=== PATIENT | female | born 1950 | race Caucasian/White ===

== ENCOUNTER 2020-02-29 14:25 | Emergency (ER) | payer MEDICARE, MEDICAID, SELFPAY ==
[2020-02-29 14:34] VITALS: BP 186/83; PULSE 78; RESP 14; TEMP 36.8; O2SAT 100; BMI 36.6
--- NOTE | 2020-02-29 14:48 | PC.NURSE ---
PER EMS - G-TUBE FELL OUT X 1 HR AGO. G-TUBE IS WITH THE PATIENT, AREA IS SLIGHTLY JORGE A. G-TUBE IS WITH PT.
[2020-02-29 15:22] VITALS: BP 187/81; PULSE 71; RESP 17; TEMP 37.2; O2SAT 99
--- NOTE | 2020-02-29 15:58 | PC.NURSE ---
RECIEVED FEMALE PATIENT. ALERT AND ORIENTED TIMES FOUR PRESENTLY. NO NOTED DISTRESS. SKIN PWD, O2 VIA N/C AT 2L PATIENT IS O2 DEPENDENT.NO NOTED RESPIRATORY DISTRESS. PATIENT NOTED GT DISLODGED. STATES BURNING SENSATION. NO NOTED S/S OF INFECTION TO SITE. UNDER EVALUATION. GT AREA CLEANSED AND MAINTAINED MOIST. WILL MONITOR FOR CHANGES.
--- NOTE | 2020-02-29 16:14 | PC.NURSE ---
SEEN BY PROVIDER.
--- NOTE | 2020-02-29 16:21 | CT_ITS ---
EXAMINATION: CT CHEST, ABDOMEN AND PELVIS WITHOUT CONTRAST. CLINICAL INFORMATION: Upper abdominal pain and generalized weakness PT S/P g TUBE DISLODGED WITH PAIN . COMPARISON: 01/13/2020 CT scan. TECHNIQUE: Multidetector volumetric imaging was performed from the thoracic inlet through the pubic symphysis without intravenous contrast. Sagittal and coronal reformatted images were obtained on the technologist workstation. This CT examination was performed using dose optimization techniques as appropriate, variously including the following: *Automated exposure control *Adjustment of mA and/or kV according to patient size (this includes techniques or standardized protocols for targeted exams where dose is matched to indication/reason for exam; i.e. extremities or head) *Use of iterative reconstruction technique DLP: 605 and 1092 mGy-cm FINDINGS: CHEST: Lungs: Patchy bilateral airspace disease is noted. The appearance is nonspecific. Infectious or inflammatory causes could have this appearance this is more prominent than I would expect for atelectasis alone. The lungs are hypoexpanded. Central airways are grossly unremarkable Mediastinum: Right IJ dialysis catheter is in place with the tip in the deep right atrium abutting the tricuspid valve vascular calcification within the aorta and coronary vessels Pericardium/Pleura: No significant effusion. No pleural mass or thickening. Chest Wall/Axilla: Unremarkable. ABDOMEN/PELVIS: Peritoneal Space:No significant free air or free fluid identified. Liver, Gallbladder, Biliary Tree: The non contrast liver is normal in size, shape, and attenuation. No focal hepatic lesion or biliary ductal dilatation is present. Gallbladder surgically absent. Pancreas: Unremarkable. Spleen: Unremarkable. Adrenal Glands: Unremarkable. Kidneys and Ureters: The kidneys are normal in size, shape, and attenuation. No hydronephrosis or hydroureter. No obstructive punctate calculi in the left lower pole collecting system incidentally noted. No perinephric stranding. Bladder: Decompressed Gastrointestinal Tract: Colon is decompressed. I do not appreciate any colonic wall thickening or pericolonic inflammatory changes. There is scattered diverticulosis. Normal-appearing appendix in the right lower quadrant. Visualized small bowel unremarkable. There is soft tissue stranding along the tract of the previously placed percutaneous gastrostomy tube extending along the intra-abdominal wall and anterior stomach. I do not appreciate a discrete drainable collection in this region however Abdominal Wall: There is mild stranding to the fat surrounding the thickened tract from the previously positioned percutaneous gastrostomy tube. I do not appreciate a discrete drainable collection however Lymphovascular Structures: Since the vascular calcification within the aorta iliac system. Pelvic Viscera: Presumably surgically absent Osseus Structures: Multilevel degenerative changes in the spine. Vertebral plasty cement at T12. Significant convex right thoracic curve. No definitive acute bony abnormality. Bilateral compression hip screws noted IMPRESSION: Although hypoexpanded, there is patchy bilateral airspace disease. Atypical infectious etiology cannot be excluded with this appearance and clinical correlation would be helpful. There is mild central vascular prominence but no overt edema in this setting. The right IJ dialysis catheter tip is in the deep right atrium close proximity to the tricuspid valve, likely accentuated by the degree of hypoexpansion of the study. There is soft tissue stranding surrounding the tract from the previously placed percutaneous gastrostomy tube. No discrete drainable collection.
[2020-02-29 16:44] LABS: Basophils Percent Auto 0.4 % (0-2); Eosinophils Absolute Auto 0.3 X10*3/uL (0.0-0.4); Eosinophils Percent Auto 3.9 % (0-4); Hematocrit 32.4 % (37-47); Hemoglobin 10.5 g/dl (12.0-16.0); Imm Gran Abs Auto 0.04 X10*3/uL (0.00-0.03); Imm Gran Pct Auto 0.5 % (0.0-0.4); Lymphocytes Absolute Auto 1.3 X10*3/uL (1.2-4.9); MANUAL DIFF FLAG NO; Mean Corpuscular HGB Conc 32.4 g/dl (31.0-35.0); Mean Corpuscular Hemoglobin 31.8 pg (27.0-33.0); Mean Corpuscular Volume 98.2 fL (80-98); Mean Platelet Volume 12.3 fL (9.4-12.3); Monocytes Absolute Auto 0.7 X10*3/uL (0.1-1.2); Monocytes Percent Auto 9.4 % (2-11); Neutrophils Absolute Auto 5.1 X10*3/uL (2.0-8.3); Neutrophils Percent Auto 68.8 % (45-73); Red Cell Distribution Width 12.9 % (11.0-16.0); White Blood Count 7.4 X10*3/uL (4.8-10.8)
--- NOTE | 2020-02-29 16:49 | ED.GENADULT ---
HPI - General Adult General Chief complaint: General Medical Stated complaint: tube fell out Time Seen by Provider: 02/29/20 15:22 Source: patient Mode of arrival: ambulatory Limitations: no limitations History of Present Illness HPI narrative: 69yoF c a PMHx ESRD on HD (M/W/F), CKD, COPD, depression, GERD, gout, HTN, dm, sleep apnea, asthma presenting to the ED c c/o G-Tube dislodgment on it own last night and since then has been having abdominal pain. Reports she has not used it in a while has been eating by mouth. Related Data Allergies Allergy/AdvReac Type Severity Reaction Status Date / Time acetaminophen [From TYLENOL] Allergy Unknown UNKNWON Unverified 01/30/20 15:49 aspirin [ASPIRIN] Allergy Unknown UNKNOWN, Unverified 01/30/20 15:49 stomach upset diazepam [From VALIUM] Allergy Unknown RESP Unverified 01/30/20 15:49 FAILURE oxycodone Allergy Unknown Verified 11/21/19 00:00 penicillin V Allergy Unknown edema Verified 11/21/19 00:00 Penicillins Allergy Unknown HIVES Unverified 01/30/20 15:49 metformin [Metformin] AdvReac Mild DIARRHEA Unverified 01/30/20 15:49 Aspirin Adult Low Strength Allergy Unknown rash Uncoded 09/20/11 00:00 From PERCOCET Allergy Unknown ITCHING,APARNA Uncoded 01/30/20 15:49 H Penicillin Allergy Unknown anaphylaxis Uncoded 09/20/11 00:00 Review of Systems Review of Systems: Constitutional : No Weight loss, No Fever, No Chills, No Night Sweats, No Fatigue, No Malaise ENT/Mouth: No ear pain, No sore throat, No Difficulty swallowing Cardiovascular : No Chest Pain, No SOB, No Dyspnea on Exertion, No Orthopnea, No Edema, No Palpitations Respiratory : No Cough, No Sputum, No Wheezing, No Dyspnea Gastrointestinal : No Nausea, No Vomiting, No Diarrhea, No Hematochezia, No Melena Genitourinary : No irregular bleeding, No Dysuria, No Urinary Frequency, No Hematuria, No Urinary Incontinence, No Urgency, No Flank Pain Musculoskeletal : No joint pain, No Myalgias, No Joint Swelling Skin : No Skin Lesions, No rash Neuro : No Weakness, No Numbness, No Paresthesias, No Loss of Consciousness, No Dizziness, No Headache Psych : No Social Issues, Heme/Lymph: No Bruising, No Bleeding,No Lymphadenopathy Endocrine : No Polyuria, No Polydipsia, No Temperature Intolerance Yes all other systems are reviewed and are negative [facility] Past Medical History Attestation statement: The following information was validated with the patient. Medical History Constipation COPD (chronic obstructive pulmonary disease) Diabetes Diastolic dysfunction Diverticulitis Dyspnea Social History Social History Alcohol intake: former Smoking Status: Former smoker Smoked in Last 30 Days: No Use of substances other than those prescribed or required for medical reasons: No Advance Directives: No Advance Directives Information Provided: Yes Physical Exam Vital Signs: Vital Signs: Vital Signs Temp Pulse Resp BP Pulse Ox 02/29/20 15:22 98.9 F 71 17 187/81 H 99 02/29/20 14:34 98.3 F 78 14 186/83 H 100 Body Mass Index 36.6 Vital signs have been reviewed as normal and appeared to be correct. Blood pressure normal. Heart rate normal. Respiration rate normal. Temperature normal. Oxygen saturation normal. Appearance: Alert. Oriented X3. No acute distress. Head: Normal external exam. Normocephalic. Atraumatic. No Muniz signs noted. No raccoon eyes noted Eyes: PERRLA. EOMI. Conjunctiva and sclera normal. Eyelids normal. ENT: EAC normal. TM's Normal. Pharynx normal. Uvula midline. Moist mucous membranes. No trismus noted. No drooling noted. No muffled voice noted. Neck: Normal inspection. Neck supple. FROM. No adenopathy. Thyroid Normal. No meningeal signs. No neck mass noted. CVS: Normal heart rate and rhythm. Heart sound normal. No murmurs noted. Pulses normal throughout. Respiratory: No respiratory distress. Painless inspiration. Breath sounds normal. No wheezes/rales/rhonchi noted. Chest nontender. No accessory muscle usage noted or decreased air movement noted. Abdomen: Soft and TTP if upper abd. with normal appearing stoma no drainage or surrounding erythema noted. Bowel sounds normal in all 4 quadrants. No distention noted. No organomegaly noted. No visible injury noted. Back: No CVA tenderness. Full range of motion noted. Skin: Skin warm and dry. Normal skin color. Normal skin turgor. No rashes/lesions/lacerations noted. Extremities: No lower extremity edema. Extremities exhibit normal range of motion. Extremities nontender. Neuro: Oriented X 3. No motor deficit. No sensory deficit. Reflexes normal. Course Course Course Narrative: 69yoF c a PMHx ESRD on HD (M/W/F), CKD, COPD, depression, GERD, gout, HTN, dm, sleep apnea, asthma presenting to the ED c c/o G-Tube dislodgment on it own last night and since then has been having abdominal pain. Reports she has not used it in a while has been eating by mouth. - Plan: Labs, CT scan of abd/pelvis then Re-evaluate. Reevaluation(s) Reevaluation #1: All labs at baseline for patient. I consulted with Dr. Mackenzie who reported if the patient has not used her Gtube over a year she would not replace it and would place a 4 x 4 and have her follow-up in the office. This was confirmed with the patient and the daughter over the phone. Therefore CT scan does not show any acute abnormalities therefore will DC home with instructions to return if any new or worsening symptoms and to follow up with GI. Patient understands agrees with this plan. Medical Decision Making Lab Data Result diagrams: 02/29/20 16:38 02/29/20 16:38 Labs: Lab Results 02/29/20 02/29/20 02/29/20 Range/Units 16:38 16:38 16:38 WBC 7.4 (4.8-10.8) X10*3/uL RBC 3.30 L (4.20-5.50) X10*6/uL Hgb 10.5 L (12.0-16.0) g/dl Hct 32.4 L (37-47) % MCV 98.2 H (80-98) fL MCH 31.8 (27.0-33.0) pg MCHC 32.4 (31.0-35.0) g/dl RDW 12.9 (11.0-16.0) % Plt Count 96 L (160-400) X10*3/uL MPV 12.3 (9.4-12.3) fL Immature Gran % (Auto) 0.5 H (0.0-0.4) % Neut % (Auto) 68.8 (45-73) % Lymph % (Auto) 17.0 L (20-40) % Apache % (Auto) 9.4 (2-11) % Eos % (Auto) 3.9 (0-4) % Baso % (Auto) 0.4 (0-2) % Lymph # (Auto) 1.3 (1.2-4.9) X10*3/uL [place] # (Auto) 0.7 (0.1-1.2) X10*3/uL Eos # (Auto) 0.3 (0.0-0.4) X10*3/uL Baso # (Auto) 0.0 (0.0-0.2) X10*3/uL Abs Immat Gran (auto) 0.04 H (0.00-0.03) X10*3/uL Absolute Neuts (auto) 5.1 (2.0-8.3) X10*3/uL Absolute Nucleated RBC 0.000 (0.0-0.012) X10*3/uL Nucleated RBC % (auto) 0.0 (0.0-0.2) /100WBC PT 12.4 (10.8-13.0) SEC INR 1.0 (0.9-1.1) Sodium (135-145) mmol/L Potassium (3.3-5.1) mmol/l Chloride (96-108) mmol/L Carbon Dioxide (22-29) mmol/L Anion Gap (12-20) BUN (9-16) mg/dL Creatinine (0.5-1.4) mg/dL Estim Creat Clear Calc Estimated GFR Random Glucose (60-115) mg/dL Calcium (8.4-10.2) mg/dL Magnesium 1.8 (1.6-2.6) mg/dL Total Bilirubin (0.0-1.0) mg/dL Direct Bilirubin (0.0-0.5) mg/dL AST (5-31) U/L ALT (0-31) U/L Alkaline Phosphatase (39-117) U/L Total Protein (6.5-8.0) g/dL Albumin (3.5-5.0) g/dL Lipase (8-78) U/L 02/28/ Range/Units 16:38 WBC (4.8-10.8) X10*3/uL RBC (4.20-5.50) X10*6/uL Hgb (12.0-16.0) g/dl Hct (37-47) % MCV (80-98) fL MCH (27.0-33.0) pg MCHC (31.0-35.0) g/dl RDW (11.0-16.0) % Plt Count (160-400) X10*3/uL MPV (9.4-12.3) fL Immature Gran % (Auto) (0.0-0.4) % Neut % (Auto) (45-73) % Lymph % (Auto) (20-40) % [place] % (Auto) (2-11) % Eos % (Auto) (0-4) % Baso % (Auto) (0-2) % Lymph # (Auto) (1.2-4.9) X10*3/uL [place] # (Auto) (0.1-1.2) X10*3/uL Eos # (Auto) (0.0-0.4) X10*3/uL Baso # (Auto) (0.0-0.2) X10*3/uL Abs Immat Gran (auto) (0.00-0.03) X10*3/uL Absolute Neuts (auto) (2.0-8.3) X10*3/uL Absolute Nucleated RBC (0.0-0.012) X10*3/uL Nucleated RBC % (auto) (0.0-0.2) /100WBC PT (10.8-13.0) SEC INR (0.9-1.1) Sodium 133 L (135-145) mmol/L Potassium 3.2 L (3.3-5.1) mmol/l Chloride 97 (96-108) mmol/L Carbon Dioxide 28 (22-29) mmol/L Anion Gap 11 L (12-20) BUN 19 H (9-16) mg/dL Creatinine 2.83 H (0.5-1.4) mg/dL Estim Creat Clear Calc 19.3 Estimated GFR 17 Random Glucose 318 H (60-115) mg/dL Calcium 7.7 L (8.4-10.2) mg/dL Magnesium (1.6-2.6) mg/dL Total Bilirubin 0.4 (0.0-1.0) mg/dL Direct Bilirubin 0.2 (0.0-0.5) mg/dL AST 35 H (5-31) U/L ALT 31 (0-31) U/L Alkaline Phosphatase 296 H (39-117) U/L Total Protein 6.1 L (6.5-8.0) g/dL Albumin 2.4 L (3.5-5.0) g/dL Lipase 96 H (8-78) U/L Imaging Data ct scan of abdomen and pelvis: Attestation: I personally reviewed and interpreted this imaging study as follows: Radiologist's impression: IMPRESSION: Although hypoexpanded, there is patchy bilateral airspace disease. Atypical infectious etiology cannot be excluded with this appearance and clinical correlation would be helpful. There is mild central vascular prominence but no overt edema in this setting. The right IJ dialysis catheter tip is in the deep right atrium close proximity to the tricuspid valve, likely accentuated by the degree of hypoexpansion of the study. There is soft tissue stranding surrounding the tract from the previously placed percutaneous gastrostomy tube. No discrete drainable collection. CT scan - chest: Attestation: I personally reviewed and interpreted this imaging study as follows: Radiologist's impression:
[2020-02-29 16:50] LABS: Prothrombin Time 12.4 SEC (10.8-13.0)
--- NOTE | 2020-02-29 16:52 | PC.NURSE ---
TAKEN FOR CT. PATIENT'S DAUGHTER Jake Hill LEFT NUMBER [phone]. ISOSORBIDE INCREASED TO 60MG PO BID OF PAST MON.
[2020-02-29 17:08] LABS: Platelet Count 96 X10*3/uL (160-400)
[2020-02-29 17:17] LABS: Magnesium 1.8 mg/dL (1.6-2.6)
[2020-02-29 17:54] LABS: Alanine Aminotransferase 31 U/L (0-31); Albumin Level 2.4 g/dL (3.5-5.0); Alkaline Phosphatase 296 U/L (39-117); Anion Gap 11 (12-20); Aspartate Amino Transferase 35 U/L (5-31); Bilirubin Direct 0.2 mg/dL (0.0-0.5); Bilirubin Total 0.4 mg/dL (0.0-1.0); Blood Urea Nitrogen 19 mg/dL (9-16); Calcium 7.7 mg/dL (8.4-10.2); Carbon Dioxide 28 mmol/L (22-29); Chloride 97 mmol/L (96-108); Creatinine Clr Calc Pharmacy 19.3; Estimated Glomerular Filt Rate 17; Glucose Random 318 mg/dL (60-115); Lipase 96 U/L (8-78); Potassium 3.2 mmol/l (3.3-5.1); Sodium 133 mmol/L (135-145); Total Protein 6.1 g/dL (6.5-8.0)
--- NOTE | 2020-02-29 19:09 | PC.NURSE ---
spoke with daughter about discharge. family wishes gt placed even if not in use
[2020-02-29 19:23] VITALS: BP 167/77; PULSE 73; RESP 17; TEMP 37.1; O2SAT 100
--- NOTE | 2020-02-29 19:40 | XR_ITS ---
EXAMINATION: XR ABDOMEN KUB CLINICAL INDICATION: G-tube placement check COMPARISON: CT scan from today TECHNIQUE: AP view of the abdomen. FINDINGS: Contras have been given via the marked density place gastrostomy tube. The contrast is seen within the stomach and extending into the proximal small bowel. The gastrostomy tube balloon appears to be surrounded by air in the mid body portion of the stomach. Chronic appearing changes otherwise IMPRESSION: Gastric tube appears to be positioned in the stomach.
[2020-02-29 21:33] VITALS: BP 188/84; PULSE 65; RESP 17; TEMP 37.1; O2SAT 100
== END 2020-02-29 22:00 | disposition home or self-care (01) ==
PROVIDERS: Physician Assistant Medical; Emergency Provider Emergency Medicine; PCP Family Medicine
DX: Z43.1 Encounter for attention to gastrostomy (principal); E11.22 Type 2 diabetes mellitus with diabetic chronic kidney disease; I12.0 Hypertensive chronic kidney disease with stage 5 chronic kidney disease or end stage renal disease; N18.6 End stage renal disease; Z99.2 Dependence on renal dialysis; Z79.899 Other long term (current) drug therapy; Z79.82 Long term (current) use of aspirin; Z87.891 Personal history of nicotine dependence
CPT/HCPCS: 49452; 36415; 71250; 74018; 74176; 80048; 80076; 83690; 83735; 85025; 85610; 99284

== ENCOUNTER 2020-04-24 19:29 | Emergency (ER) | payer MEDICARE, MEDICAID, SELFPAY ==
[2020-04-24] VITALS (15 sets, daily range): BP systolic 158–218; BP diastolic 62–131; PULSE 74–88; RESP 12–22; TEMP 37.2–37.3; O2SAT 94–100; BMI 35.6
--- NOTE | 2020-04-24 19:31 | ECG_ITS ---
Test Reason : STROKE Blood Pressure : / mmHG Vent. Rate : 074 BPM Atrial Rate : 074 BPM P-R Int : 120 ms QRS Dur : 082 ms QT Int : 396 ms P-R-T Axes : 044 044 061 degrees QTc Int : 439 ms Artifact in tracing Normal sinus rhythm Normal ECG When compared with ECG of 13-JAN-2020 15:18, No significant change was found Referred By: Tan Cano Electronically Signed By:PARKER FLOWER
--- NOTE | 2020-04-24 19:31 | XR_ITS ---
EXAMINATION: XR CHEST CLINICAL INFORMATION: l sided weakness COMPARISON: 01/13/2020 TECHNIQUE: Frontal view of the chest was obtained. FINDINGS: Tunneled right IJ dialysis catheter terminates within the right atrium, unchanged from prior. ET tube terminates over the chest. Calcific atherosclerosis is present in the thoracic aorta. Cardiac silhouette is within normal limits in size allowing for slight rotation. There is pulmonary venous congestion with increased interstitial opacities, most consistent with mild interstitial edema. A viral infectious process is also possible. No pleural effusion or pneumothorax. No focal airspace consolidation. Bones are osteopenic. A nonunited fracture at the left proximal humerus is partially imaged. XR/XR chest 1V IMPRESSION: Pulmonary venous congestion. Perihilar interstitial opacities likely correspond to mild interstitial edema, though a viral pneumonia is also on the differential.
--- NOTE | 2020-04-24 19:31 | CT_ITS ---
EXAMINATION: CT HEAD WITHOUT CONTRAST (STROKE PROTOCOL) CLINICAL INFORMATION: Stroke protocol. Left-sided weakness COMPARISON: CT head 03/14/2019 TECHNIQUE: Contiguous axial imaging was performed from the skull base to vertex without intravenous administration of contrast. This CT examination was performed using dose optimization techniques as appropriate, variously including the following: *Automated exposure control *Adjustment of mA and/or kV according to patient size (this includes techniques or standardized protocols for targeted exams where dose is matched to indication/reason for exam; i.e. 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 There is no intracranial hemorrhage, hematoma, or extra-axial fluid collection. The ventricles are normal in size. There is no hydrocephalus, edema, or mass effect. The lisa-white matter differentiation appears symmetric. There is no acute infarct or mass lesion. The calvarium appears intact. There is no pneumocephalus or orbital emphysema. The visualized sinuses and middle ears and mastoid air cells show no significant mucosal thickening. There are no air-fluid levels. CT/CT head for stroke IMPRESSION: No acute intracranial pathology. This critical result was discussed with Dr. Cano 04/24/2020, 7:50 PM It was ascertained that the content and urgency of the report was understood at the time of direct communication.
[2020-04-24 19:39] LABS: Glucose, Whole Blood 274 mg/dL (60-115)
[2020-04-24 19:39] LABS: Prothrombin Time Whole Bld POC 12.2 sec (11.1-13.5)
--- NOTE | 2020-04-24 19:42 | ED_ITS ---
HPI - Neuro Symptoms/Deficit General Chief Complaint: Stroke Stated Complaint: STROKE ALERT Time Seen by Provider: 04/24/20 19:31 Source: patient, family and EMS Mode of arrival: EMS Limitations: language barrier History of Present Illness HPI Narrative: Patient brought by EMS with history of hypertension on dialysis for headache which is going on for last 4 days with blurred vision and today about 45 minutes prior to arrival patient daughter noticed that patient is slightly dizzy and blood pressure checked at home was 157/87 and patient was feeling weak which is generalized blood sugar was 300. Per ambulance patient was more weak on the left eye and but according to family there was no new weakness and the left arm weakness secondary to humerus fracture on arrival patient's blood pressure was 171/62 she is still complaining of mild headache saturating 99% on 2 L which she has at home no cough noticed patient had dialysis yesterday and will be going for dialysis tomorrow patient daughter is positive for COVID but patient denies any cough or shortness of breath and she was tested at [facility] last week which was negative also order another daughter who is a [employer] she has also tested yesterday was negative for COVID Onset (ago): day(s) (4) Related Data Home Medications Medication Instructions Recorded Confirmed atorvastatin 40 mg PO BEDTIME 04/24/20 04/24/20 bumetanide 2 mg PO SUTUTHSA@0800,1700 04/24/20 04/24/20 cholecalciferol (vitamin D3) 50 mcg PO DAILY 04/24/20 04/24/20 clopidogrel 75 mg PO BEDTIME 04/24/20 04/24/20 fluoxetine 5 ml PO DAILY 04/24/20 04/24/20 isosorbide mononitrate 60 mg PO QAM 04/24/20 04/24/20 metoprolol tartrate 25 mg PO BID 04/24/20 04/24/20 Allergies Allergy/AdvReac Type Severity Reaction Status Date / Time acetaminophen [From TYLENOL] Allergy Unknown UNKNWON Verified 04/24/20 20:22 aspirin [ASPIRIN] Allergy Unknown UNKNOWN, Verified 04/24/20 20:22 stomach upset diazepam [From VALIUM] Allergy Unknown RESP Verified 04/24/20 20:22 FAILURE oxycodone Allergy Unknown Unknown Verified 04/24/20 20:22 penicillin V Allergy Unknown edema Verified 11/21/19 00:00 Penicillins Allergy Unknown HIVES Verified 04/24/20 20:22 metformin [Metformin] AdvReac Mild DIARRHEA Verified 04/24/20 20:22 Aspirin Adult Low Strength Allergy Unknown rash Uncoded 09/20/11 00:00 From PERCOCET Allergy Unknown ITCHING,APARNA Uncoded 01/30/20 15:49 H Penicillin Allergy Unknown anaphylaxis Uncoded 09/20/11 00:00 Review of Systems Review of Systems: REVIEW OF SYSTEMS: Pertinent positives and negatives are stated above in the history. GEN: no fevers, chills, fatigue HEENT: no nasal congestion, sore throat, ear pain NEURO: no, dizziness, focal weakness PULM: no cough, shortness of breath CV: no chest pain, palpitations, LE edema ABD: no abdominal pain, nausea, vomiting, diarrhea : no dysuria, urgency, frequency SKIN: no rash ROS otherwise negative x 10 PMFSH Past Medical History Medical History Constipation COPD (chronic obstructive pulmonary disease) Diabetes Diastolic dysfunction Diverticulitis Dyspnea Social History Social History Alcohol intake: never Smoking Status: Former smoker Smoked in Last 30 Days: No Use of substances other than those prescribed or required for medical reasons: No Advance Directives: No Advance Directives Information Provided: Yes Physical Exam Vital Signs: Vital Signs: Last Vital Signs Temp 99.2 F 04/24/20 21:30 Pulse 77 04/24/20 22:00 Resp 18 04/24/20 22:00 BP 204/90 H 04/24/20 22:00 Pulse Ox 99 04/24/20 22:00 Body Mass Index 35.6 Const: General: cooperative, healthy appearing, comfortable, no acute distress, well developed, alert and awake Nutritional Appearance: average body habitus Orientation/consciousness: oriented to person, oriented to place, oriented to time and patient oriented x3 Limitations: no limitations and physical limitations (Bed-bound) HENMT: Head: Yes normal to inspection Ears: hearing grossly normal bilaterally General nose exam: Normal external nose present Face and sinus: Yes normal facial exam and Yes sinuses nontender Mouth: Normal oral and palatal mucosa present Eyes: General: appearance normal, both eyes and all related structures Conjunctivae: conjunctivae normal Corneas: corneas normal Pupils: Equal, round and reactive pupils present Neck: Neck: Yes normal visual inspection, Yes full ROM and Yes no lymphadenopathy Chest: Other: Lakshmi catheter for dialysis on the right side Chest palpation & inspection: normal inspection of the chest Resp: Effort & Inspection: normal respiratory effort and able to speak in complete sentences Auscultation: clear to auscultation bilaterally, no crackles, no rales, no rhonchi and no wheezes Cardio: Palpation: normal PMI Rate: regular rate Rhythm: regular rhythm Heart sounds: S1 normal heart sound present and S2 normal heart sound present GI: Other: G-tube in place Inspection: Yes normal to inspection Palpation (GI): Soft to palpation and nontender : General: Yes no CVA tenderness Back/Spine/Pelvis: Back: no CVA tenderness Thoracic/Lumbar Spine: thoracic and lumbar spine normal to inspection Skin: General skin exam: no rashes or lesions noted Neuro: General: oriented to person, oriented to place, oriented to time, patient oriented x3, moves all extremities, Normal light touch and pain sensation, no focal motor deficits and CN's II-XI intact bilaterally Cranial nerves: Yes Equal, round and reactive pupils present MDM - Neuro Symptoms/Deficit MDM Narrative Medical decision making narrative: Patient with nonspecific headache dizziness no focal deficits CT scan of the head is negative for CVA. Patient a COVID-19 test came back to be positive. Patient is on home oxygen 2 L and she is saturating on 99-100% at room air. Will discharge patient back to her home advised to follow with PCP or report to the ER if any shortness of breath repeat blood pressure was 158/69 Medical Records Attestation: I reviewed the patient's medical records. Lab Data Attestation: I reviewed the patient's lab results. Result diagrams: 04/24/20 19:58 04/24/20 19:57 Labs: Lab Results 04/24/20 04/24/20 04/24/20 Range/Units 19:33 19:35 19:57 WBC (4.8-10.8) X10*3/uL RBC (4.20-5.50) X10*6/uL Hgb (12.0-16.0) g/dl Hct (37-47) % MCV (80-98) fL MCH (27.0-33.0) pg MCHC (31.0-35.0) g/dl RDW (11.0-16.0) % Plt Count (160-400) X10*3/uL MPV (9.4-12.3) fL Immature Gran % (Auto) (0.0-0.4) % Neut % (Auto) (45-73) % Lymph % (Auto) (20-40) % [place] % (Auto) (2-11) % Eos % (Auto) (0-4) % Baso % (Auto) (0-2) % Lymph # (Auto) (1.2-4.9) X10*3/uL [place] # (Auto) (0.1-1.2) X10*3/uL Eos # (Auto) (0.0-0.4) X10*3/uL Baso # (Auto) (0.0-0.2) X10*3/uL Abs Immat Gran (auto) (0.00-0.03) X10*3/uL Absolute Neuts (auto) (2.0-8.3) X10*3/uL Absolute Nucleated RBC (0.0-0.012) X10*3/uL Nucleated RBC % (auto) (0.0-0.2) /100WBC PT 11.3 (10.8-13.0) SEC Whole Blood PT 12.2 (11.1-13.5) sec INR 1.0 (0.9-1.1) Whole Blood INR 1.0 (0.9-1.1) Sodium (135-145) mmol/L Potassium (3.3-5.1) mmol/l Chloride (96-108) mmol/L Carbon Dioxide (22-29) mmol/L Anion Gap (12-20) BUN (9-16) mg/dL Creatinine (0.5-1.4) mg/dL Estim Creat Clear Calc Estimated GFR POC Glucose 274 H (60-115) mg/dL Random Glucose (60-115) mg/dL Calcium (8.4-10.2) mg/dL Troponin I High Sens (<3.5-17.0) ng/L Hold Red Top Coronavirus (PCR) COVID-19 ([facility]ON) (Negative) COVID-19 Clin Com Influenza Type A (PCR) Influenza Type B (PCR) RSV RNA Qual (PCR) 04/24/20 04/24/20 04/24/20 Range/Units 19:57 19:57 19:57 WBC (4.8-10.8) X10*3/uL RBC (4.20-5.50) X10*6/uL Hgb (12.0-16.0) g/dl Hct (37-47) % MCV (80-98) fL MCH (27.0-33.0) pg MCHC (31.0-35.0) g/dl RDW (11.0-16.0) % Plt Count (160-400) X10*3/uL MPV (9.4-12.3) fL Immature Gran % (Auto) (0.0-0.4) % Neut % (Auto) (45-73) % Lymph % (Auto) (20-40) % [place] % (Auto) (2-11) % Eos % (Auto) (0-4) % Baso % (Auto) (0-2) % Lymph # (Auto) (1.2-4.9) X10*3/uL [place] # (Auto) (0.1-1.2) X10*3/uL Eos # (Auto) (0.0-0.4) X10*3/uL Baso # (Auto) (0.0-0.2) X10*3/uL Abs Immat Gran (auto) (0.00-0.03) X10*3/uL Absolute Neuts (auto) (2.0-8.3) X10*3/uL Absolute Nucleated RBC (0.0-0.012) X10*3/uL Nucleated RBC % (auto) (0.0-0.2) /100WBC PT (10.8-13.0) SEC Whole Blood PT (11.1-13.5) sec INR (0.9-1.1) Whole Blood INR (0.9-1.1) Sodium 136 (135-145) mmol/L Potassium 3.9 D (3.3-5.1) mmol/l Chloride 103 (96-108) mmol/L Carbon Dioxide 25 (22-29) mmol/L Anion Gap 12 (12-20) BUN 27 H (9-16) mg/dL Creatinine 3.37 H (0.5-1.4) mg/dL Estim Creat Clear Calc 15.4 Estimated GFR 13 POC Glucose (60-115) mg/dL Random Glucose 277 H (60-115) mg/dL Calcium 6.9 L D (8.4-10.2) mg/dL Troponin I High Sens 33.9 H (<3.5-17.0) ng/L Hold Red Top Coronavirus (PCR) Cancelled COVID-19 ([facility]ON) (Negative) COVID-19 Clin Com Influenza Type A (PCR) Cancelled Influenza Type B (PCR) Cancelled RSV RNA Qual (PCR) Cancelled 04/24/20 04/24/20 04/24/20 Range/Units 19:58 20:00 20:31 WBC 2.4 L (4.8-10.8) X10*3/uL RBC 2.43 L D (4.20-5.50) X10*6/uL Hgb 7.8 L D (12.0-16.0) g/dl Hct 24.2 L D (37-47) % MCV 99.6 H (80-98) fL MCH 32.1 (27.0-33.0) pg MCHC 32.2 (31.0-35.0) g/dl RDW 14.0 (11.0-16.0) % Plt Count 48 L D (160-400) X10*3/uL MPV 13.3 H (9.4-12.3) fL Immature Gran % (Auto) 0.4 (0.0-0.4) % Neut % (Auto) 50.4 (45-73) % Lymph % (Auto) 30.0 (20-40) % [place] % (Auto) 16.7 H (2-11) % Eos % (Auto) 1.7 (0-4) % Baso % (Auto) 0.8 (0-2) % Lymph # (Auto) 0.7 L (1.2-4.9) X10*3/uL [place] # (Auto) 0.4 (0.1-1.2) X10*3/uL Eos # (Auto) 0.0 (0.0-0.4) X10*3/uL Baso # (Auto) 0.0 (0.0-0.2) X10*3/uL Abs Immat Gran (auto) 0.01 (0.00-0.03) X10*3/uL Absolute Neuts (auto) 1.2 L (2.0-8.3) X10*3/uL Absolute Nucleated RBC 0.000 (0.0-0.012) X10*3/uL Nucleated RBC % (auto) 0.0 (0.0-0.2) /100WBC PT (10.8-13.0) SEC Whole Blood PT (11.1-13.5) sec INR (0.9-1.1) Whole Blood INR (0.9-1.1) Sodium (135-145) mmol/L Potassium (3.3-5.1) mmol/l Chloride (96-108) mmol/L Carbon Dioxide (22-29) mmol/L Anion Gap (12-20) BUN (9-16) mg/dL Creatinine (0.5-1.4) mg/dL Estim Creat Clear Calc Estimated GFR POC Glucose (60-115) mg/dL Random Glucose (60-115) mg/dL Calcium (8.4-10.2) mg/dL Troponin I High Sens (<3.5-17.0) ng/L Hold Red Top See Note Coronavirus (PCR) COVID-19 ([facility]ON) Positive A (Negative) COVID-19 Clin Com See Note Influenza Type A (PCR) Influenza Type B (PCR) RSV RNA Qual (PCR) ECG Data Attestation: I personally reviewed and interpreted this ECG as follows: Interpretation: Normal sinus rhythm heart rate 74 normal axis normal intervals no acute ST T wave changes impression normal EKG NIH Stroke Scale Internal: Initial- Upon Arrival Level of Consciousness: Alert Level of Consciousness Questions: Answers both questions correctly Level of Consciousness Commands: Performs both tasks correctly Best Gaze: Normal Visual: No visual loss Facial Palsy: Normal Motor Arm (Right): No drift Motor Arm (Left): No drift Motor Leg (Right): No drift Motor Leg (Left): No drift Limb Ataxia: Absent Sensory: Normal Best Language: No aphasia Dysarthia: Normal Extinction and Inattention: No abnormality Score: 0 Discharge Plan Discharge Clinical Impression: COVID-19, Accelerated hypertension Patient Disposition: Home, Self-Care Instructions: Hypertension (ED), COVID-19 (Coronavirus Disease 2019) (ED) Additional Instructions: Continue medication have dialysis in the morning and follow-up with your PCP Social distancing as you have COVID-19 infection Prescriptions: No Action atorvastatin 40 mg tablet 40 mg PO BEDTIME RF: 0 fluoxetine 20 mg/5 mL (4 mg/mL) solution 5 ml PO DAILY RF: 0 bumetanide 2 mg tablet 2 mg PO SUTUTHSA@0800,1700 RF: 0 clopidogrel 75 mg tablet 75 mg PO BEDTIME RF: 0 isosorbide mononitrate 60 mg tablet extended release 24 hr 60 mg PO QAM RF: 0 metoprolol tartrate 25 mg tablet 25 mg PO BID RF: 0 cholecalciferol (vitamin D3) 50 mcg (2,000 unit) tablet 50 mcg PO DAILY RF: 0 Print Language: Guyanese
[2020-04-24 20:11] LABS: Hemoglobin 7.8 g/dl (12.0-16.0); Mean Corpuscular Volume 99.6 fL (80-98); Mean Platelet Volume 13.3 fL (9.4-12.3); SCAN SMEAR FLAG 1
[2020-04-24 20:12] LABS: MANUAL DIFF FLAG NO
[2020-04-24 20:13] LABS: Basophils Percent Auto 0.8 % (0-2); Eosinophils Percent Auto 1.7 % (0-4); Hematocrit 24.2 % (37-47); Imm Gran Abs Auto 0.01 X10*3/uL (0.00-0.03); Imm Gran Pct Auto 0.4 % (0.0-0.4); Lymphocytes Absolute Auto 0.7 X10*3/uL (1.2-4.9); Mean Corpuscular HGB Conc 32.2 g/dl (31.0-35.0); Mean Corpuscular Hemoglobin 32.1 pg (27.0-33.0); Monocytes Absolute Auto 0.4 X10*3/uL (0.1-1.2); Monocytes Percent Auto 16.7 % (2-11); Neutrophils Absolute Auto 1.2 X10*3/uL (2.0-8.3); Neutrophils Percent Auto 50.4 % (45-73); Red Blood Count 2.43 X10*6/uL (4.20-5.50)
[2020-04-24 20:20] LABS: Stroke Lab Use COMPLETE
[2020-04-24 20:23] LABS: Prothrombin Time 11.3 SEC (10.8-13.0)
[2020-04-24 20:36] LABS: PLT ABN DIST 1; Platelet Count 48 X10*3/uL (160-400); White Blood Count 2.4 X10*3/uL (4.8-10.8)
[2020-04-24 20:37] LABS: COVID-19 Test Positive (Negative); IDNOW Serial# 9DD0AD1C
[2020-04-24 20:49] LABS: Anion Gap 12 (12-20); Blood Urea Nitrogen 27 mg/dL (9-16); Calcium 6.9 mg/dL (8.4-10.2); Carbon Dioxide 25 mmol/L (22-29); Chloride 103 mmol/L (96-108); Creatinine Clr Calc Pharmacy 15.4; Estimated Glomerular Filt Rate 13; Glucose Random 277 mg/dL (60-115); Potassium 3.9 mmol/l (3.3-5.1); Sodium 136 mmol/L (135-145)
[2020-04-24 21:19] LABS: Troponin-I High Sensitivity 33.9 ng/L (<3.5-17.0)
[2020-04-24] MEDS: hydrALAZINE HCl 20 MG/ML VIAL 10 MG IVPUSH (21:43)
[2020-04-25 00:16] VITALS: BP 204/90; PULSE 84
[2020-04-25] MEDS: hydrALAZINE HCl 20 MG/ML VIAL 10 MG IVPUSH (00:16)
[2020-04-25 00:36] VITALS: BP 187/70; PULSE 18; RESP 18; TEMP 37.7; O2SAT 98
--- NOTE | 2020-04-25 00:38 | PC.NURSE ---
PT comes from home EMS for Stroke symptoms. Stroke alert called at 1927. Upon arrival, pt was alert and verbal. Brain CT was done, labs, line, and COVID swab done. CODid came positive. Pt placed on enhanced respiratory precaution. Hypertensive noted. See VS flow sheet for details. MD made aware. Hydralzine 10mg ivp given x2 wtih good effect. Upon discharged, BP 167/70. Passed swallowing eval. Drank sip of water w/o difficulty.
== END 2020-04-25 00:41 | disposition home or self-care (01) ==
PROVIDERS: Emergency Provider Internal Medicine
DX: U07.1 COVID-19 (principal); I10 Essential (primary) hypertension; Z87.891 Personal history of nicotine dependence; Z79.899 Other long term (current) drug therapy
CPT/HCPCS: 36415; 70450; 71045; 80048; 82947; 84484; 85025; 85610; 87635; 93005; 96374; 96375; 99284

== ENCOUNTER 2020-05-04 13:17 | Inpatient (IN) | payer MEDICARE, MEDICAID, SELFPAY ==
[2020-05-04 13:24] VITALS: BP 148/80; PULSE 88; RESP 40; TEMP 36.6; O2SAT 89; BMI 32.8
--- NOTE | 2020-05-04 13:27 | ECG_ITS ---
Test Reason : SOB Blood Pressure : / mmHG Vent. Rate : 083 BPM Atrial Rate : 083 BPM P-R Int : 132 ms QRS Dur : 094 ms QT Int : 406 ms P-R-T Axes : 047 030 050 degrees QTc Int : 477 ms Normal sinus rhythm Nonspecific T wave abnormality Prolonged QT Abnormal ECG When compared with ECG of 24-APR-2020 19:45, Nonspecific T wave abnormality, worse in Lateral leads Referred By: Trudy Vasquez Electronically Signed By:ARTURO ALDANA MD
--- NOTE | 2020-05-04 13:28 | XR_ITS ---
EXAMINATION: XR CHEST CLINICAL INFORMATION: Dyspnea COMPARISON: Chest radiographs 04/24/2020, 01/13/2020, 07/04/2019 TECHNIQUE: Portable upright AP view of the chest was obtained. FINDINGS: There are low lung volumes. Right IJ dialysis catheter is again seen with tip near inferior right atrium. There is diffuse bilateral coarsening bronchovascular markings increased from prior studies suggesting probable mild vascular congestion. There is subsegmental opacity lateral right upper lobe adjacent to minor fissure and left infrahilar region which may represent early edema. No overt effusion. Cardiac and hilar mediastinal contours and bony structures are stable. XR/XR chest 1V IMPRESSION: Low lung volumes. Mild vascular congestion with some early airspace opacity right upper lobe and left infrahilar region. No overt effusion.
--- NOTE | 2020-05-04 13:32 | ED_ITS ---
HPI - SOB/Dyspnea General Chief Complaint: Dyspnea Stated Complaint: COVID +, DIFF BREATHING Time Seen by Provider: 05/04/20 13:26 Source: patient, EMS and old records reviewed Mode of arrival: EMS Limitations: other (very poor historian) History of Present Illness HPI Narrative: patient was seen on 04/24 for dizziness and HTN - she tested positive for COVID at that time, reportedly more short of breath since last night family increased O2 to 5L EMS found her mid 80s put her on NRB up to mid 90s, she missed her HD today, family did state she threw up once MD elicited complaint: shortness of breath Pertinent past history: COPD Onset (ago): day(s) (1) Context: recent illness (dx COVID 04/24) Timing: constant Severity: moderate Exacerbating factors: exertion and coughing Relieving factors: oxygen and rest Known history of: COPD and congestive heart failure Associated symptoms: cough, wheezing and nausea/vomiting Treatment prior to arrival: oxygen Related Data Home Medications Medication Instructions Recorded Confirmed atorvastatin 40 mg PO BEDTIME 04/24/20 05/04/20 bumetanide 4 mg PO SUTUTHSA@0800,1700 04/24/20 05/04/20 cholecalciferol (vitamin D3) 50 mcg PO QAM 04/24/20 05/04/20 clopidogrel 75 mg PO BEDTIME 04/24/20 05/04/20 fluoxetine 5 ml PO DAILY 04/24/20 05/04/20 isosorbide mononitrate 60 mg PO QAM 04/24/20 05/04/20 metoprolol tartrate 25 mg PO BID 04/24/20 05/04/20 lorazepam 0.5 mg PO DAILY PRN 05/04/20 05/04/20 quetiapine 25 mg PO BEDTIME PRN 05/04/20 05/04/20 umeclidinium-vilanterol [Anoro 1 puff INHALATION DAILY 05/04/20 05/04/20 Ellipta] Allergies Allergy/AdvReac Type Severity Reaction Status Date / Time acetaminophen [From TYLENOL] Allergy Unknown UNKNWON Verified 04/24/20 20:22 aspirin [ASPIRIN] Allergy Unknown UNKNOWN, Verified 04/24/20 20:22 stomach upset diazepam [From VALIUM] Allergy Unknown RESP Verified 04/24/20 20:22 FAILURE oxycodone Allergy Unknown Unknown Verified 04/24/20 20:22 penicillin V Allergy Unknown edema Verified 11/21/19 00:00 Penicillins Allergy Unknown HIVES Verified 04/24/20 20:22 metformin [Metformin] AdvReac Mild DIARRHEA Verified 04/24/20 20:22 Aspirin Adult Low Strength Allergy Unknown rash Uncoded 09/20/11 00:00 From PERCOCET Allergy Unknown ITCHING,APARNA Uncoded 01/30/20 15:49 H Penicillin Allergy Unknown anaphylaxis Uncoded 09/20/11 00:00 Review of Systems Review of Systems: Constitutional : No Fever, No Chills ENT/Mouth : No sore throat, No Rhinorrhea, No Swallowing Difficulty Eyes: No Eye Pain, No Swelling, No Redness Cardiovascular : No Chest Pain, positive SOB, No Orthopnea, no Edema Respiratory : pos Cough, No Sputum, No Wheezing, positive dyspnea Gastrointestinal : pos Nausea, pos Vomiting, No Diarrhea, No abdominal Pain, No Hematochezia, No Melena Genitourinary : No Dysuria, No Urinary Frequency, No Hematuria Musculoskeletal : No joint pain, No Myalgias Skin : No Skin Lesions, No rash Neuro : No Weakness, No Numbness, No Dizziness, No Headache Psych : No Anxiety/Panic, No Depression Heme/Lymph: No Bruising, No Lymphadenopathy Endocrine : No Polyuria, No Polydipsia All other systems reviewed and are negative [facility] Past Medical History Medical History Constipation COPD (chronic obstructive pulmonary disease) Diabetes Diastolic dysfunction Diverticulitis Dyspnea Social History Social History Alcohol intake: never Smoking Status: Smoker, status unknown Use of substances other than those prescribed or required for medical reasons: No Advance Directives: No Advance Directives Information Provided: No Physical Exam Vital Signs: Vital Signs: Last Vital Signs Temp 97.8 F 05/04/20 13:24 Pulse 90 05/04/20 15:10 Resp 20 05/04/20 15:10 BP 162/79 H 05/04/20 15:10 Pulse Ox 93 05/04/20 15:10 Body Mass Index 32.8 Appearance: Alert. Oriented X3. mild acute distress. taken off NRB 8-91% on 6L NC Eyes: Pupils equal, round and reactive to light. ENT: Pharynx normal. Neck: Normal inspection. Neck supple. CVS: Normal heart rate and rhythm. Pulses normal. Respiratory: mild respiratory distress. tachypnea Breath sounds decreased with bilateral rhonchi Abdomen: Soft and non-tender. Skin: Skin warm and dry. Normal skin color. Normal skin turgor. Extremities: No lower extremity edema. No calf ttp Neuro: Oriented X 3. No motor deficit. No sensory deficit. Course Course Course Narrative: missed her HD today, patient is 93-94% on 6L NC given CXR and 15 H bands will give empiric ertapenem, planned admit doing better at this time, planned admit hospitalist notified MDM - SOB/Dyspnea MDM Narrative Medical decision making narrative: 69 yo female with multiple medical problems including O2 dependent COPD here with dyspnea and wheezing one episode of n/v at home - just diagnosed with COVID will need labs, EKG, CXR, IV dexamethasone, albuterol 5mg, cultures, lactic acid dispo per results and improvement Lab Data Result diagrams: 05/04/20 13:37 05/04/20 14:57 Labs: Lab Results 05/04/20 05/04/20 05/04/20 Range/Units 13:36 13:36 13:36 WBC (4.8-10.8) X10*3/uL RBC (4.20-5.50) X10*6/uL Hgb (12.0-16.0) g/dl Hct (37-47) % MCV (80-98) fL MCH (27.0-33.0) pg MCHC (31.0-35.0) g/dl RDW (11.0-16.0) % Plt Count (160-400) X10*3/uL MPV (9.4-12.3) fL Immature Gran % (Auto) Neut % (Auto) Lymph % (Auto) [place] % (Auto) Eos % (Auto) Baso % (Auto) Lymph # (Auto) [place] # (Auto) Eos # (Auto) Baso # (Auto) Abs Immat Gran (auto) Absolute Neuts (auto) Absolute Nucleated RBC (0.0-0.012) X10*3/uL Nucleated RBC % (auto) (0.0-0.2) /100WBC Neutrophils % (Manual) (45-73) % Band Neutrophils % (3-5) % Lymphocytes % (Manual) (20-40) % Monocytes % (Manual) (2-11) % Abs Neuts (Manual) (2.2-7.9) X10*3/uL Lymphocytes # (Manual) (0.6-4.8) X10*3/uL Monocytes # (Manual) (0.0-1.2) X10*3/uL Nucleated RBCs (0-0) /100WBC Platelet Estimate (NORMAL) Plt Morphology Comment RBC Morphology Microcytosis Spherocytes Tear Drop Cells [place] Cells Schistocytes PT (10.8-13.0) SEC INR (0.9-1.1) APTT (24.1-38.0) SEC Sodium Potassium Chloride Carbon Dioxide Anion Gap BUN Creatinine Estim Creat Clear Calc Estimated GFR Random Glucose Lactic Acid Cancelled Calcium Magnesium Cancelled Ferritin Cancelled Total Bilirubin Cancelled Direct Bilirubin Cancelled AST Cancelled ALT Cancelled Alkaline Phosphatase Cancelled Lactate Dehydrogenase Cancelled Troponin I High Sens 49.0 H (<3.5-17.0) ng/L B-Natriuretic Peptide (<100) pg/mL Total Protein Cancelled Albumin Cancelled Lipase Cancelled 05/04/20 05/04/20 05/04/20 Range/Units 13:37 13:37 13:37 WBC 5.1 (4.8-10.8) X10*3/uL RBC 3.35 L D (4.20-5.50) X10*6/uL Hgb 10.5 L D (12.0-16.0) g/dl Hct 33.7 L D (37-47) % MCV 100.6 H (80-98) fL MCH 31.3 (27.0-33.0) pg MCHC 31.2 (31.0-35.0) g/dl RDW 14.7 (11.0-16.0) % Plt Count 91 L D (160-400) X10*3/uL MPV 13.2 H (9.4-12.3) fL Immature Gran % (Auto) Cancelled Neut % (Auto) Cancelled Lymph % (Auto) Cancelled [place] % (Auto) Cancelled Eos % (Auto) Cancelled Baso % (Auto) Cancelled Lymph # (Auto) Cancelled [place] # (Auto) Cancelled Eos # (Auto) Cancelled Baso # (Auto) Cancelled Abs Immat Gran (auto) Cancelled Absolute Neuts (auto) Cancelled Absolute Nucleated RBC 0.000 (0.0-0.012) X10*3/uL Nucleated RBC % (auto) 0.0 (0.0-0.2) /100WBC Neutrophils % (Manual) 74 H (45-73) % Band Neutrophils % 15 H (3-5) % Lymphocytes % (Manual) 1 L (20-40) % Monocytes % (Manual) 10 (2-11) % Abs Neuts (Manual) 4.5 (2.2-7.9) X10*3/uL Lymphocytes # (Manual) 0.1 L (0.6-4.8) X10*3/uL Monocytes # (Manual) 0.5 (0.0-1.2) X10*3/uL Nucleated RBCs 1 H (0-0) /100WBC Platelet Estimate SLIGHTLY DECREASED (NORMAL) Plt Morphology Comment NORMAL RBC Morphology NOTED Microcytosis 1+ Spherocytes 1+ Tear Drop Cells 1+ [place] Cells 1+ Schistocytes 1+ PT (10.8-13.0) SEC INR (0.9-1.1) APTT (24.1-38.0) SEC Sodium Cancelled Potassium Cancelled Chloride Cancelled Carbon Dioxide Cancelled Anion Gap Cancelled BUN Cancelled Creatinine Cancelled Estim Creat Clear Calc Cancelled Estimated GFR Cancelled Random Glucose Cancelled Lactic Acid Calcium Cancelled Magnesium Ferritin Total Bilirubin Direct Bilirubin AST ALT Alkaline Phosphatase Lactate Dehydrogenase Troponin I High Sens (<3.5-17.0) ng/L B-Natriuretic Peptide 1054 H (<100) pg/mL Total Protein Albumin Lipase 05/04/20 05/04/20 Range/Units 13:37 13:56 WBC (4.8-10.8) X10*3/uL RBC (4.20-5.50) X10*6/uL Hgb (12.0-16.0) g/dl Hct (37-47) % MCV (80-98) fL MCH (27.0-33.0) pg MCHC (31.0-35.0) g/dl RDW (11.0-16.0) % Plt Count (160-400) X10*3/uL MPV (9.4-12.3) fL Immature Gran % (Auto) Neut % (Auto) Lymph % (Auto) [place] % (Auto) Eos % (Auto) Baso % (Auto) Lymph # (Auto) [place] # (Auto) Eos # (Auto) Baso # (Auto) Abs Immat Gran (auto) Absolute Neuts (auto) Absolute Nucleated RBC (0.0-0.012) X10*3/uL Nucleated RBC % (auto) (0.0-0.2) /100WBC Neutrophils % (Manual) (45-73) % Band Neutrophils % (3-5) % Lymphocytes % (Manual) (20-40) % Monocytes % (Manual) (2-11) % Abs Neuts (Manual) (2.2-7.9) X10*3/uL Lymphocytes # (Manual) (0.6-4.8) X10*3/uL Monocytes # (Manual) (0.0-1.2) X10*3/uL Nucleated RBCs (0-0) /100WBC Platelet Estimate (NORMAL) Plt Morphology Comment RBC Morphology Microcytosis Spherocytes Tear Drop Cells [place] Cells Schistocytes PT 11.0 (10.8-13.0) SEC INR 0.9 (0.9-1.1) APTT 32.4 (24.1-38.0) SEC Sodium Potassium Chloride Carbon Dioxide Anion Gap BUN Creatinine Estim Creat Clear Calc Estimated GFR Random Glucose Lactic Acid 2.0 Calcium Magnesium Ferritin Total Bilirubin Direct Bilirubin AST ALT Alkaline Phosphatase Lactate Dehydrogenase Troponin I High Sens (<3.5-17.0) ng/L B-Natriuretic Peptide (<100) pg/mL Total Protein Albumin Lipase ECG Data Attestation: I personally reviewed and interpreted this ECG as follows: ECG interpretation date: 05/04/20 ECG interpretation time: 13:46 Interpretation: Rate: 83 Rhythm: NSR [place]: normal Normal P waves. Normal ROBERT. Normal QRS complex. ST T wave : nonspecific, inverted I and aVL, no CARMELA qTC: prolonged prior studies: no acute ischemia The study has been interpreted contemporaneously by me. . Critical Care Time Critical Care Time Critical Care Time: Yes Total Critical Care Time: 35 Attestation: nebs, IV antibiotics, reassessments, NRB O2 Discharge Plan Discharge Clinical Impression: Hypoxia, COVID-19 COPD (chronic obstructive pulmonary disease) Qualifiers: COPD type: COPD with acute exacerbation Qualified Code(s): J44.1 - Chronic obstructive pulmonary disease with (acute) exacerbation Patient Disposition: Admitted As Inpatient
[2020-05-04] MEDS: dexAMETHasone sod phosphate 4 MG/ML VIAL IVPUSH (13:41)
[2020-05-04] MEDS: ondansetron HCL 4 MG/2 ML VIAL IVPUSH (13:41)
[2020-05-04 13:53] LABS: INTERNATIONAL NORM RATIO 0.9 (0.9-1.1)
[2020-05-04 13:54] LABS: Hematocrit 33.7 % (37-47); Hemoglobin 10.5 g/dl (12.0-16.0); Mean Corpuscular HGB Conc 31.2 g/dl (31.0-35.0); Mean Corpuscular Hemoglobin 31.3 pg (27.0-33.0); Mean Corpuscular Volume 100.6 fL (80-98); Mean Platelet Volume 13.2 fL (9.4-12.3); Red Blood Count 3.35 X10*6/uL (4.20-5.50); Red Cell Distribution Width 14.7 % (11.0-16.0)
[2020-05-04 13:56] LABS: Partial Thromboplastin Time 32.4 SEC (24.1-38.0); Platelet Count 91 X10*3/uL (160-400); WBC ABN SCTR FOR CBC 1
[2020-05-04] MEDS: Albuterol Sulfate (0.083%) 2.5 MG/3 ML VIAL.NEB 5 MG INHALE ×2 (13:59→17:10)
[2020-05-04 14:00] VITALS: PULSE 84; O2SAT 89
[2020-05-04 14:20] LABS: Band Neutrophils Percent 15 % (3-5); Lymphocytes Percent Manual 1 % (20-40); Monocytes Percent Manual 10 % (2-11); Neutrophils Percent Manual 74 % (45-73); Nucleated Red Blood Cells 1 /100WBC (0-0)
[2020-05-04 14:22] LABS: B Type Natriuretic Peptide 1054 pg/mL (<100)
[2020-05-04 14:23] LABS: Microcytosis 1+; Platelet Estimate SLIGHTLY DECREASED (NORMAL); RBC Morphology NOTED
[2020-05-04 14:25] LABS: Burr Cells 1+; Platelet Morphology Comment NORMAL; Tear Drop Cells 1+
[2020-05-04 14:26] LABS: Schistocytes 1+; Spherocytes 1+
[2020-05-04 14:27] LABS: Lymphocytes Absolute Manual 0.1 X10*3/uL (0.6-4.8); Monocytes Absolute Manual 0.5 X10*3/uL (0.0-1.2); Neutrophils Absolute Manual 4.5 X10*3/uL (2.2-7.9); White Blood Count 5.1 X10*3/uL (4.8-10.8)
[2020-05-04] MEDS: Ertapenem Sodium 0.5 GM in 0.9 % Sodium Chloride 50 ML IV (14:58)
[2020-05-04] MEDS: Furosemide 40 MG/4 ML VIAL IVPUSH (15:06)
[2020-05-04 15:10] VITALS: BP 162/79; PULSE 90; RESP 20; O2SAT 93
[2020-05-04 16:02] LABS: Magnesium 2.2 mg/dL (1.6-2.6)
[2020-05-04 16:19] VITALS: BP 158/61; PULSE 88; RESP 36; TEMP 36.6; O2SAT 88
[2020-05-04 16:31] LABS: Alanine Aminotransferase 31 U/L (0-31); Albumin Level 2.2 g/dL (3.5-5.0); Alkaline Phosphatase 539 U/L (39-117); Anion Gap 17 (12-20); Aspartate Amino Transferase 42 U/L (5-31); Bilirubin Direct 0.4 mg/dL (0.0-0.5); Bilirubin Total 0.5 mg/dL (0.0-1.0); Blood Urea Nitrogen 75 mg/dL (9-16); Calcium 7.5 mg/dL (8.4-10.2); Carbon Dioxide 30 mmol/L (22-29); Chloride 83 mmol/L (96-108); Estimated Glomerular Filt Rate 8; Glucose Random 1076 mg/dL (60-115); Lactate Dehydrogenase 497 U/L (122-220); Lipase 92 U/L (8-78); Potassium 3.8 mmol/l (3.3-5.1); Sodium 126 mmol/L (135-145); Total Protein 6.3 g/dL (6.5-8.0)
[2020-05-04] MEDS: Insulin Regular, Human 100 UNIT/ML 3 ML VIAL 10 UNIT IVPUSH ×2 (16:43→19:52)
[2020-05-04] MEDS: Insulin Regular/NS 100 UNIT/100 ML PLAST..BAG 8 UNIT IVCONT (16:44)
[2020-05-04 17:02] LABS: Ferritin 5660 ng/mL (10-250)
[2020-05-04 18:36] VITALS: BP 156/69; PULSE 100; RESP 25; TEMP 36.6; O2SAT 89
[2020-05-04 19:45] LABS: Glucose, Whole Blood > 600 mg/dL (60-115)
[2020-05-04 19:45] LABS: Glucose, Whole Blood > 600 mg/dL (60-115)
[2020-05-04 19:45] LABS: Glucose, Whole Blood > 600 mg/dL (60-115)
[2020-05-04 19:45] LABS: Glucose, Whole Blood > 600 mg/dL (60-115)
[2020-05-04 20:21] LABS: Glucose, Whole Blood > 600 mg/dL (60-115)
[2020-05-04 20:47] VITALS: BP 138/60; PULSE 97; RESP 35; TEMP 36.6; O2SAT 89
[2020-05-04 21:27] LABS: Glucose, Whole Blood 587 mg/dL (60-115)
[2020-05-04 22:31] LABS: Glucose, Whole Blood 511 mg/dL (60-115)
[2020-05-04 23:46] LABS: Glucose, Whole Blood 395 mg/dL (60-115)
[2020-05-05] VITALS (9 sets, daily range): BP systolic 105–174; BP diastolic 62–75; PULSE 85–104; RESP 18–22; TEMP 36.6–37.2; O2SAT 90–98; BMI 34.7
[2020-05-05 01:43] LABS: Glucose, Whole Blood 357 mg/dL (60-115)
[2020-05-05] MEDS: cefTRIAXone sodium 1 GM in 0.9 % Sodium Chloride 50 ML IV (05:32)
[2020-05-05] MEDS: vancomycin HCL 1,000 MG in 0.9 % Sodium Chloride 250 ML 270 MG IV (06:13)
--- NOTE | 2020-05-05 06:22 | P.HPHOSP_ITS ---
History of Present Illness Date of Service: 05/04/20 Chief Complaint: Shortness of breath Patient is Amharic-speaking and history is obtained with the help of an sign language interpreter This is a 69-year-old female with past medical history of CHF, diabetes, COPD, ESRD on dialysis who presents to the hospital with shortness of breath. Patient appears to be confused, she is oriented to self and place but is not really answering questions appropriately. She says yes to every question asked by the sign language interpreter myself. Therefore history is obtained mostly from chart as well as ED note. It appears the patient was seen on 04/24 for dizziness and hypertension and at that time she tested positive for COVID. Reportedly has become more short of breath since then and family increase her baseline O2 oxygen from 2 L to 5 L. On arrival of EMS patient was found to be satting in the mid 80s. Pe put her on non-rebreather with improvement of her O2 to the 90s. She missed her dialysis today and had 1 episode of vomiting. Unable to obtain any accurate review of system otherwise is patient answers yes to all my questions To the ED hemodynamically stable without respiratory rate of 36, currently satting between 86-90% on 6 L of oxygen Lab significant for normal WBC count, hemoglobin of 10.5 which is improved from recent admission, platelet count of 91, BNP significant for creatinine of 5.14, glucose of 1000, COVID-19 positive on 04/24 Chest x-ray shows low lung volumes, mild vascular congestion with some early airspace opacity right upper lobe and left infrahilar region with no overt effusion Unable to get complete past medical history as patient confused and not really forthcoming with much history Past medical history: CHF, diabetes, COPD, ESRD on dialysis Review of Systems Review of Systems: Yes Unobtainable due to mental status [facility] Medical History Constipation COPD (chronic obstructive pulmonary disease) Diabetes Diastolic dysfunction Diverticulitis Dyspnea Social History Household Members: Family Housing: Apartment Alcohol intake: never Smoking Status: Smoker, status unknown Use of substances other than those prescribed or required for medical reasons: Unknown Advance Directives: No Advance Directives Information Provided: No Do you have thoughts of harming others: None Do you have a plan to hurt others: No Plan Recently lost weight without trying: Unsure Meds Allergies Allergy/AdvReac Type Severity Reaction Status Date / Time acetaminophen [From TYLENOL] Allergy Unknown UNKNWON Verified 04/24/20 20:22 aspirin [ASPIRIN] Allergy Unknown UNKNOWN, Verified 04/24/20 20:22 stomach upset diazepam [From VALIUM] Allergy Unknown RESP Verified 04/24/20 20:22 FAILURE oxycodone Allergy Unknown Unknown Verified 04/24/20 20:22 penicillin V Allergy Unknown edema Verified 11/21/19 00:00 Penicillins Allergy Unknown HIVES Verified 04/24/20 20:22 metformin [Metformin] AdvReac Mild DIARRHEA Verified 04/24/20 20:22 Aspirin Adult Low Strength Allergy Unknown rash Uncoded 09/20/11 00:00 From PERCOCET Allergy Unknown ITCHING,APARNA Uncoded 01/30/20 15:49 H Penicillin Allergy Unknown anaphylaxis Uncoded 09/20/11 00:00 Home Medications Medication Instructions Recorded Confirmed Type atorvastatin 40 mg PO BEDTIME 04/24/20 05/04/20 History bumetanide 4 mg PO SUTUTHSA@0800,1700 04/24/20 05/04/20 History cholecalciferol (vitamin D3) 50 mcg PO QAM 04/24/20 05/04/20 History clopidogrel 75 mg PO BEDTIME 04/24/20 05/04/20 History fluoxetine 5 ml PO DAILY 04/24/20 05/04/20 History isosorbide mononitrate 60 mg PO QAM 04/24/20 05/04/20 History metoprolol tartrate 25 mg PO BID 04/24/20 05/04/20 History lorazepam 0.5 mg PO DAILY PRN 05/04/20 05/04/20 History quetiapine 25 mg PO BEDTIME PRN 05/04/20 05/04/20 History umeclidinium-vilanterol [Anoro 1 puff INHALATION DAILY 05/04/20 05/04/20 History Ellipta] Physical Exam Vital Signs and Narrative: Vital Signs: Last Vital Signs Temp 98.4 F 05/05/20 04:00 Pulse 99 05/05/20 04:00 Resp 20 05/05/20 04:00 BP 142/62 H 05/05/20 04:00 Pulse Ox 98 05/05/20 04:00 Body Mass Index 32.8 Const: Other: Patient oriented to self and place, not making eye contact, answering yes to all my questions through the sign language interpreter, does appear tachypneic but in no respiratory distress General: no acute distress Orientation/consciousness: oriented to person and oriented to place Eyes: General: appearance normal, both eyes and all related structures Resp: Other: Tachypneic, coughing while were in the room Cardio: Rate: regular rate Rhythm: regular rhythm GI: Palpation (GI): Soft to palpation Auscultation: normal bowel sounds Skin: General skin exam: no rashes or lesions noted Neuro: General: oriented to person and oriented to place Cognition (Neuro): normal cognition Extrem: General: Yes normal to inspection and Yes no pedal edema Results Labs CBC and Chem 7: 05/04/20 13:37 05/04/20 14:57 Labs: Laboratory Results - last 24 hr 05/04/20 05/04/20 05/04/20 13:36 13:36 13:36 MCV MCH MCHC RDW Plt Count MPV Immature Gran % (Auto) Neut % (Auto) Lymph % (Auto) [place] % (Auto) Eos % (Auto) Baso % (Auto) Lymph # (Auto) [place] # (Auto) Eos # (Auto) Baso # (Auto) Abs Immat Gran (auto) Absolute Neuts (auto) Absolute Nucleated RBC Nucleated RBC % (auto) Neutrophils % (Manual) Band Neutrophils % Lymphocytes % (Manual) Monocytes % (Manual) Abs Neuts (Manual) Lymphocytes # (Manual) Monocytes # (Manual) Nucleated RBCs Platelet Estimate Plt Morphology Comment RBC Morphology Microcytosis Spherocytes Tear Drop Cells Sury Cells Schistocytes Smear Path Review PT INR APTT Anion Gap Estim Creat Clear Calc Estimated GFR POC Glucose Random Glucose Lactic Acid Cancelled Calcium Magnesium Cancelled Ferritin Cancelled Total Bilirubin Cancelled Direct Bilirubin Cancelled AST Cancelled ALT Cancelled Alkaline Phosphatase Cancelled Lactate Dehydrogenase Cancelled Troponin I High Sens 49.0 H B-Natriuretic Peptide Total Protein Cancelled Albumin Cancelled Lipase Cancelled 05/04/20 05/04/20 05/04/20 13:37 13:37 13:37 MCV 100.6 H MCH 31.3 MCHC 31.2 RDW 14.7 Plt Count 91 L D MPV 13.2 H Immature Gran % (Auto) Cancelled Neut % (Auto) Cancelled Lymph % (Auto) Cancelled [place] % (Auto) Cancelled Eos % (Auto) Cancelled Baso % (Auto) Cancelled Lymph # (Auto) Cancelled [place] # (Auto) Cancelled Eos # (Auto) Cancelled Baso # (Auto) Cancelled Abs Immat Gran (auto) Cancelled Absolute Neuts (auto) Cancelled Absolute Nucleated RBC 0.000 Nucleated RBC % (auto) 0.0 Neutrophils % (Manual) 74 H Band Neutrophils % 15 H Lymphocytes % (Manual) 1 L Monocytes % (Manual) 10 Abs Neuts (Manual) 4.5 Lymphocytes # (Manual) 0.1 L Monocytes # (Manual) 0.5 Nucleated RBCs 1 H Platelet Estimate SLIGHTLY DECREASED Plt Morphology Comment NORMAL RBC Morphology NOTED Microcytosis 1+ Spherocytes 1+ Tear Drop Cells 1+ Sury Cells 1+ Schistocytes 1+ Smear Path Review SEE NOTE PT INR APTT Anion Gap Cancelled Estim Creat Clear Calc Cancelled Estimated GFR Cancelled POC Glucose Random Glucose Cancelled Lactic Acid Calcium Cancelled Magnesium Ferritin Total Bilirubin Direct Bilirubin AST ALT Alkaline Phosphatase Lactate Dehydrogenase Troponin I High Sens B-Natriuretic Peptide 1054 H Total Protein Albumin Lipase 05/04/20 05/04/20 05/04/20 13:37 13:56 14:57 MCV MCH MCHC RDW Plt Count MPV Immature Gran % (Auto) Neut % (Auto) Lymph % (Auto) [place] % (Auto) Eos % (Auto) Baso % (Auto) Lymph # (Auto) [place] # (Auto) Eos # (Auto) Baso # (Auto) Abs Immat Gran (auto) Absolute Neuts (auto) Absolute Nucleated RBC Nucleated RBC % (auto) Neutrophils % (Manual) Band Neutrophils % Lymphocytes % (Manual) Monocytes % (Manual) Abs Neuts (Manual) Lymphocytes # (Manual) Monocytes # (Manual) Nucleated RBCs Platelet Estimate Plt Morphology Comment RBC Morphology Microcytosis Spherocytes Tear Drop Cells [place] Cells Schistocytes Smear Path Review PT 11.0 INR 0.9 APTT 32.4 Anion Gap 17 Estim Creat Clear Calc 10.0 Estimated GFR 8 POC Glucose Random Glucose 1076 H* Lactic Acid 2.0 Calcium 7.5 L D Magnesium Ferritin 5660 H Total Bilirubin 0.5 Direct Bilirubin 0.4 AST 42 H ALT 31 Alkaline Phosphatase 539 H D Lactate Dehydrogenase 497 H Troponin I High Sens B-Natriuretic Peptide Total Protein 6.3 L Albumin 2.2 L Lipase 92 H 05/04/20 05/04/20 05/04/20 14:57 17:42 17:49 MCV MCH MCHC RDW Plt Count MPV Immature Gran % (Auto) Neut % (Auto) Lymph % (Auto) [place] % (Auto) Eos % (Auto) Baso % (Auto) Lymph # (Auto) [place] # (Auto) Eos # (Auto) Baso # (Auto) Abs Immat Gran (auto) Absolute Neuts (auto) Absolute Nucleated RBC Nucleated RBC % (auto) Neutrophils % (Manual) Band Neutrophils % Lymphocytes % (Manual) Monocytes % (Manual) Abs Neuts (Manual) Lymphocytes # (Manual) Monocytes # (Manual) Nucleated RBCs Platelet Estimate Plt Morphology Comment RBC Morphology Microcytosis Spherocytes Tear Drop Cells Altus Cells Schistocytes Smear Path Review PT INR APTT Anion Gap Estim Creat Clear Calc Estimated GFR POC Glucose > 600 H* > 600 H* Random Glucose Lactic Acid Calcium Magnesium 2.2 Ferritin Total Bilirubin Direct Bilirubin AST ALT Alkaline Phosphatase Lactate Dehydrogenase Troponin I High Sens B-Natriuretic Peptide Total Protein Albumin Lipase 05/04/20 05/04/20 05/04/20 18:40 19:34 20:13 MCV MCH MCHC RDW Plt Count MPV Immature Gran % (Auto) Neut % (Auto) Lymph % (Auto) [place] % (Auto) Eos % (Auto) Baso % (Auto) Lymph # (Auto) [place] # (Auto) Eos # (Auto) Baso # (Auto) Abs Immat Gran (auto) Absolute Neuts (auto) Absolute Nucleated RBC Nucleated RBC % (auto) Neutrophils % (Manual) Band Neutrophils % Lymphocytes % (Manual) Monocytes % (Manual) Abs Neuts (Manual) Lymphocytes # (Manual) Monocytes # (Manual) Nucleated RBCs Platelet Estimate Plt Morphology Comment RBC Morphology Microcytosis Spherocytes Tear Drop Cells Sury Cells Schistocytes Smear Path Review PT INR APTT Anion Gap Estim Creat Clear Calc Estimated GFR POC Glucose > 600 H* > 600 H* > 600 H* Random Glucose Lactic Acid Calcium Magnesium Ferritin Total Bilirubin Direct Bilirubin AST ALT Alkaline Phosphatase Lactate Dehydrogenase Troponin I High Sens B-Natriuretic Peptide Total Protein Albumin Lipase 05/04/20 05/04/20 05/04/20 21:21 22:26 23:41 MCV MCH MCHC RDW Plt Count MPV Immature Gran % (Auto) Neut % (Auto) Lymph % (Auto) [place] % (Auto) Eos % (Auto) Baso % (Auto) Lymph # (Auto) [place] # (Auto) Eos # (Auto) Baso # (Auto) Abs Immat Gran (auto) Absolute Neuts (auto) Absolute Nucleated RBC Nucleated RBC % (auto) Neutrophils % (Manual) Band Neutrophils % Lymphocytes % (Manual) Monocytes % (Manual) Abs Neuts (Manual) Lymphocytes # (Manual) Monocytes # (Manual) Nucleated RBCs Platelet Estimate Plt Morphology Comment RBC Morphology Microcytosis Spherocytes Tear Drop Cells [place] Cells Schistocytes Smear Path Review PT INR APTT Anion Gap Estim Creat Clear Calc Estimated GFR POC Glucose 587 H* 511 H* 395 H* Random Glucose Lactic Acid Calcium Magnesium Ferritin Total Bilirubin Direct Bilirubin AST ALT Alkaline Phosphatase Lactate Dehydrogenase Troponin I High Sens B-Natriuretic Peptide Total Protein Albumin Lipase 05/05/20 01:37 MCV MCH MCHC RDW Plt Count MPV Immature Gran % (Auto) Neut % (Auto) Lymph % (Auto) [place] % (Auto) Eos % (Auto) Baso % (Auto) Lymph # (Auto) [place] # (Auto) Eos # (Auto) Baso # (Auto) Abs Immat Gran (auto) Absolute Neuts (auto) Absolute Nucleated RBC Nucleated RBC % (auto) Neutrophils % (Manual) Band Neutrophils % Lymphocytes % (Manual) Monocytes % (Manual) Abs Neuts (Manual) Lymphocytes # (Manual) Monocytes # (Manual) Nucleated RBCs Platelet Estimate Plt Morphology Comment RBC Morphology Microcytosis Spherocytes Tear Drop Cells Sury Cells Schistocytes Smear Path Review PT INR APTT Anion Gap Estim Creat Clear Calc Estimated GFR POC Glucose 357 H* Random Glucose Lactic Acid Calcium Magnesium Ferritin Total Bilirubin Direct Bilirubin AST ALT Alkaline Phosphatase Lactate Dehydrogenase Troponin I High Sens B-Natriuretic Peptide Total Protein Albumin Lipase Imaging Radiologist's Impressions: Impressions Chest X-Ray 05/04/20 13:28 IMPRESSION: Low lung volumes. Mild vascular congestion with some early airspace opacity right upper lobe and left infrahilar region. No overt effusion. Assessment and Plan (1) Respiratory failure with hypoxia: Status: Acute (2) COPD exacerbation: Status: Acute (3) Pneumonia due to COVID-19 virus: Status: Acute (4) Acute exacerbation of CHF (congestive heart failure): Status: Acute (5) Acute hyperglycemia: Status: Acute (6) Diastolic dysfunction: Problem details: with ejection fraction 35-40% Status: Acute (7) Diabetes: Status: Acute 69-year-old female with past medical history of COPD as well as CHF who presents to the hospital with acute hypoxic respiratory failure. Patient was also recently diagnosed with COVID-19 on 04/24 # acute on chronic hypoxic respiratory failure - most likely multifactorial secondary to COVID-19 pneumonia as well as CHF as well as COPD exacerbation - patient diagnosed with COVID-19 on 04/24, has reported cough, sputum production as well as elevated BNP and evidence of pulmonary congestion on chest x-ray Plan: - will start on Decadron, patient on Bumex b.i.d., and does produce urine despite being on dialysis, will start her on 8 40 IV b.i.d. - monitor respiratory status, O2 as required with titration # COVID-19 pneumonia - chest x-ray showing infiltrates, COVID-19 positive - will start her on Decadron, patient blood cultures did come back positive for Gram-positive cocci in clusters will start her on antibiotics and cover her for community-acquired pneumonia - continue to monitor respiratory status # CHF exacerbation - elevated BNP, chest x-ray evidence of pulmonary congestion - patient on Bumex 1 mg b.i.d., unclear compliance - will start her on Lasix 40 IV b.i.d., strict I&O, daily weight, low-sodium diet - echocardiogram # COPD exacerbation - has cough, sputum production, dyspnea - will start her on Decadron, Bentyl in p.r.n. # HHS - started on insulin drip with improvement of her glucose - were able to get her off the insulin drip, will start on low-dose sliding scale insulin - Diabetic diet - POC QIDAC # CAD - continue Metoprolol, Plavix DVT prophylaxis: Will place patient on SCDs, there is documented history of intracranial hemorrhage as well as patient being on Plavix
[2020-05-05 07:01] LABS: Hematocrit 31.4 % (37-47); Hemoglobin 10.6 g/dl (12.0-16.0); Mean Corpuscular HGB Conc 33.8 g/dl (31.0-35.0); Mean Corpuscular Hemoglobin 31.4 pg (27.0-33.0); Mean Corpuscular Volume 92.9 fL (80-98); Mean Platelet Volume 12.5 fL (9.4-12.3); Red Blood Count 3.38 X10*6/uL (4.20-5.50); Red Cell Distribution Width 13.7 % (11.0-16.0)
[2020-05-05 07:04] LABS: Platelet Count 97 X10*3/uL (160-400); WBC ABN SCTR FOR CBC 1
[2020-05-05 07:43] LABS: Anion Gap 16 (12-20); Blood Urea Nitrogen 85 mg/dL (9-16); Calcium 7.8 mg/dL (8.4-10.2); Carbon Dioxide 28 mmol/L (22-29); Chloride 91 mmol/L (96-108); Creatinine Clr Calc Pharmacy 9.8; Estimated Glomerular Filt Rate 8; Glucose Random 386 mg/dL (60-115); Potassium 3.7 mmol/l (3.3-5.1); Sodium 131 mmol/L (135-145)
[2020-05-05 08:10] LABS: Glucose, Whole Blood 368 mg/dL (60-115)
[2020-05-05] MEDS: Metoprolol Tartrate 25 MG TABLET PO ×2 (08:35→20:50)
[2020-05-05] MEDS: Isosorbide Mononitrate 60 MG TAB.ER.24H PO (08:35)
[2020-05-05] MEDS: Furosemide 40 MG/4 ML VIAL IVPUSH ×2 (08:35→17:02)
[2020-05-05] MEDS: FLUoxetine HCl Oral Solution 20 MG/5 ML SOLUTION PO (08:36)
[2020-05-05] MEDS: dexAMETHasone sod phosphate 4 MG/ML VIAL IVPUSH (08:36)
[2020-05-05] MEDS: Cholecalciferol (Vitamin D3) 25 MCG TABLET 50 MCG PO (08:36)
[2020-05-05 08:41] LABS: Band Neutrophils Percent 12 % (3-5); Lymphocytes Percent Manual 9 % (20-40); Monocytes Percent Manual 11 % (2-11); Neutrophils Percent Manual 68 % (45-73)
[2020-05-05 08:42] LABS: Platelet Estimate DECREASED (NORMAL); Platelet Morphology Comment NORMAL
[2020-05-05 08:43] LABS: Acanthocytes 1+; Macrocytosis 1+; Ovalocytes 1+; Polychromasia 1+; RBC Morphology NOTED; Spherocytes 1+; Tear Drop Cells 1+
[2020-05-05 08:44] LABS: Lymphocytes Absolute Manual 0.5 X10*3/uL (0.6-4.8); Monocytes Absolute Manual 0.6 X10*3/uL (0.0-1.2); Neutrophils Absolute Manual 4.1 X10*3/uL (2.2-7.9); White Blood Count 5.1 X10*3/uL (4.8-10.8)
[2020-05-05] MEDS: 0.9 % Sodium Chloride Flush 3 ML SYRINGE IVFLUSH ×3 (08:48→20:56)
--- NOTE | 2020-05-05 10:20 | MHC.CM.PN ---
CM contacted pts daughter/HCP Paulina Powers ([phone]) who reported the pt lives with her other daughter, Keshia and grand daughters. Paulina reports her sister, Keshia and Keshia's daughter are the pts FT compensated caregivers. Paulina reports the pt is bed bound and oxygen dependent. pt has a hospital bed, wheel chair, and fidel lift and requires BLS transport to appointments. Pts PCP is Jennifer Loya at [facility] and she has a HCP on file. Keshia is pts alternate HCP. Current DC plan is home with resumption of services pt will require BLS transport IMM was delivered and a copy will be mailed to Paulina per her stated preference.
[2020-05-05 11:39] LABS: Glucose, Whole Blood 384 mg/dL (60-115)
[2020-05-05 12:48] LABS: Vancomycin Random 20.6 mcg/mL (15-20)
[2020-05-05] MEDS: Insulin Lispro 100 UNIT/ML 3 ML VIAL SUBCUT ×3 (12:58→20:51)
[2020-05-05] MEDS: Insulin Glargine,Hum.rec.anlog 100 UNIT/ML 10 ML VIAL 8 UNIT SUBCUT (12:58)
--- NOTE | 2020-05-05 13:00 | CA_ITS ---
Transthoracic Echocardiogram Patient (Last, First, Middle): Liliam Castañeda, Gender: Female Date of : 1950 Age: 69 Procedure Date: 05/05/2020 Procedure Type: Transthoracic Echocardiogram Location: [facility] [place] Height: 157.48 cm Weight: 86.18 kg BSA: 1.87 m2 Heart Rate: bpm BP: 142 / 62 mmHg Net Making Supervisor: Referring MD: Raji Sanders MD Rn Primary Care: Torin Feliz MD Symptoms: CHF exacerbation, Study Quality: Fair ECG Rhythm: Sinus Conclusions: - 1. 1. Normal LV systolic function with impaired relaxation filling pattern 2. Trivial aortic regurgitation 3. Normal RV systolic pressure 4. No pericardial effusion Findings Left Ventricle Normal left ventricular size and systolic function. There is mildly increased left ventricular wall thickness. The visually estimated ejection fraction is between 60-65%. Spectral Doppler is indicative of an impaired relaxation filling pattern. E/E prime ratio is between 8 and 15 consistent with indeterminate filling pressures. Right Ventricle Normal right ventricular cavity size and systolic function. Atria The left atrium is mildly dilated. Interatrial shunt cannot be excluded. The right atrium is normal in size. Aortic Valve Normal aortic valve structure and function. There is no aortic valve stenosis. There is trace (trivial) aortic valve regurgitation. Mitral Valve Normal mitral valve structure and function. There is trace mitral valve regurgitation. There is no mitral valve stenosis. Pulmonic Valve The pulmonic valve was not well visualized. Tricuspid Valve There is trace tricuspid valve regurgitation. The right ventricular systolic pressure is normal. Normal right atrial pressure. There is no evidence of pulmonary hypertension. Great Vessels All visible segments of the aorta are normal in size. The pulmonary artery was not well visualized. Venous The inferior vena cava is normal in size and collapses greater than 50% with inspiration. Pericardium/Pleural There is a trivial loculated pericardial effusion overlying the left ventricle. Prior Study Comparison No significant change compared to prior study dated: 03/30/2019. Measurements 2D Linear Measurements IVSd: 1.26 0.6-0.9/0.6-1.0 cm LVIDd: 3.67 3.9-5.3/4.2-5.9 cm LVIDd Index: 1.96 2.4-3.2/2.2-3.1 cm/m2 LVIDs: 2.17 2.0-3.6 cm LVPWd: 1.27 0.7-1.1 cm Ao Root: 3.00 2.1-3.5 cm LA Diam: 2.90 2.7-3.8/3.0-4.0 cm LAIDs Index: 1.55 1.5-2.3 cm/m2 LV Mass: 196.45 67-162/88-224 g LV Mass Index: 105.06 43-95/49-115 g/m2 LVOT Diam: 2.00 3.0+(-)1.3 cm 2D Systolic Function EF 4C: 61.70 >55% EF 2C: 61.20 >55% EF BiP: 62.10 >55% Mitral Valve MV Pk E: 0.99 MV PK A: 1.18 MV Decel Time: 187.00 E/A: 0.80 E'Lateral: 7.93 E'Medial: 7.16 E/E' Med: 13.90 E/E' Lat: 12.50 PHT: 55.00 MVA PHT: 4.00 Decel [place]: 5.33 Aortic Valve AoV Pk Alirio: 1.70 AoV Mn Alirio: 1.12 AoV VTI: 0.38 AoV Pk Grad: 12.00 Aov Mn Grad: 6.00 LYUDMILA Cont.VTI: 1.88 LVOT LVOT Pk Alirio: 0.75 LVOT Mn Alirio: 0.54 LVOT VTI: 0.23 LVOT Pk Grad: 2.00 LVOT Mn Grad: 1.00 LVOT Diam: 2.00 LVOT Area: 3.14 Diastolic Function MV Pk E: 0.99 MV Pk A: 1.18 E/A: 0.80 E'Medial: 7.16 E/E' Med: 13.90 E' Laterial: 7.93 E/E' Lat: 12.50 Tricuspid Valve TR Pk Alirio: 2.74 TR Pk Grad: 30.00 RA Press: 3.00 RVSP: 33.00 Great Vessels Aorta Ao Root-2D: 3.00 2.0-3.7 cm Ao Asc: 2.90 2.1-3.4 cm Pulmonary Valve PV Pk Alirio: 1.29 Peak PV Grad: 7.00 Updated in Other Vendor System with Status of Final Torin Feliz MD electronically signed on 05/05/2020 4:36:45 PM with status of Final
--- NOTE | 2020-05-05 15:34 | P.PNIM_ITS ---
Subjective Subjective Date of Service: 05/05/20 Interval History: the patient was seen and evaluated this morning Laying in bed, looks tired and exhausted No reported fever, chills with reporting shortness of breath requiring oxygen supplement No reported other overnight events. Systemic review: Reporting weakness generalized with no fever No chest pain, palpitation Worsening shortness of breath or coughing No abdominal pain, nausea or vomiting No urinary symptoms No any rash or wounds Physical Exam Vital Signs: Vital Signs: Last Vital Signs Temp 98.5 F 05/05/20 11:03 Pulse 85 05/05/20 11:03 Resp 19 05/05/20 11:03 BP 174/74 H 05/05/20 11:03 Pulse Ox 92 05/05/20 11:03 Body Mass Index 34.7 Constitutional : Alert, oriented to place and self, in moderate respiratory distress Neck : Normal inspection, Supple Cardiovascular : RRR, S1 S2, no lower extremity edema Respiratory : Decrease bilateral air entry mainly at the bases, fine basis crackles, no clear wheezes or rhonchi Gastrointestinal: soft, lax, Normal bowel sounds, Non tender Skin : Warm/Dry, No rash Neurological : Alert & oriented x3, No focal deficit Objective Data Current Medications Generic Name Dose Route Start Last Admin Trade Name Freq PRN Reason Stop Dose Admin Atorvastatin Calcium 40 mg 05/05/20 21:00 Atorvastatin Calcium 40 Mg Tablet PO BEDTIME OPAL Clopidogrel Bisulfate 75 mg 05/05/20 21:00 Clopidogrel Bisulfate 75 Mg Tablet PO BEDTIME [facility] Dexamethasone Sodium Phosphate 4 mg 05/05/20 09:00 05/05/20 08:36 Dexamethasone Sod Phosphate 4 Mg/Ml Vial IVPUSH 4 mg DAILY OPAL Administration Docusate Sodium 100 mg 05/05/20 01:14 Docusate Sodium 100 Mg Capsule PO DAILY PRN Constipation Fluoxetine HCl 20 mg 05/05/20 09:00 05/05/20 08:36 Fluoxetine Hcl Oral Solution 20 Mg/5 Ml Solution PO 20 mg DAILY OPAL Administration Furosemide 40 mg 05/05/20 09:00 05/05/20 08:35 Furosemide 40 Mg/4 Ml Vial IVPUSH 40 mg BID@0900,1800 OPAL Administration Protocol Vancomycin HCl 750 mg/ 275 mls @ 183.333 mls/hr 05/05/20 05:00 Vancomycin HCl 500 mg/ Sodium IV Chloride Q24H [facility] Ceftriaxone Sodium 1 gm/ 50 mls @ 100 mls/hr 12/23/20 06:00 Sodium Chloride IV Q24H [facility] Insulin Glargine 8 unit 05/05/20 12:05 05/05/20 12:58 Insulin Glargine,Hum.Rec.Anlog 100 Unit/Ml 10 Ml Vial SUBCUT 8 unit DAILY [facility] Administration Insulin Human Lispro 0 unit 05/05/20 11:30 05/05/20 12:58 Insulin Lispro 100 Unit/Ml 3 Ml Vial SUBCUT 10 unit QIDACHS [facility] Administration Protocol Isosorbide Mononitrate 60 mg 05/05/20 09:00 05/05/20 08:35 Isosorbide Mononitrate 60 Mg Tab.Er.24h PO 60 mg DAILY [facility] Administration Protocol Lorazepam 0.5 mg 05/05/20 01:14 Lorazepam 0.5 Mg Tablet PO DAILY PRN Agitation Metoprolol Tartrate 25 mg 05/05/20 09:00 05/05/20 08:35 Metoprolol Tartrate 25 Mg Tablet PO 25 mg BID [facility] Administration Protocol Non-Formulary Medication 1 puff 05/05/20 09:00 Umeclidinium-Vilanterol [Anoro Ellipta] INHALE DAILY [facility] Ondansetron HCl 4 mg 05/05/20 01:14 Ondansetron Hcl 4 Mg/2 Ml Vial IVPUSH Q8H PRN Nausea and Vomiting Pharmacy Consult 1 each 05/04/20 13:26 Consult Rx Perform Med Rec MISCELLANE ONCE PRN Consult order Pharmacy Consult 1 each 05/05/20 04:48 Consult Rx Vancomycin Dosing MISCELLANE DAILY PRN Consult order Quetiapine Fumarate 25 mg 05/05/20 01:14 Quetiapine Fumarate 25 Mg Tablet PO BEDTIME PRN Insomnia Sodium Chloride 3 ml 05/05/20 01:14 05/05/20 08:48 0.9 % Sodium Chloride Flush 3 Ml Syringe IVFLUSH 3 ml QSHIFT [facility] Administration Vitamin D 50 mcg 05/05/20 09:00 05/05/20 08:36 Cholecalciferol (Vitamin D3) 25 Mcg Tablet PO 50 mcg DAILY [facility] Administration Labs CBC & Chem 7: 05/05/20 05:25 05/05/20 05:25 Microbiology Microbiology Results: Microbiology 05/04/20 13:36 Blood - Venous Blood Culture - Preliminary 05/04/20 13:40 Blood - Venous Blood Culture - Preliminary Assessment and Plan (1) Respiratory failure with hypoxia: Status: Acute (2) COPD exacerbation: Status: Acute (3) Pneumonia due to COVID-19 virus: Status: Acute (4) Acute exacerbation of CHF (congestive heart failure): Status: Acute (5) Acute hyperglycemia: Status: Acute (6) Diastolic dysfunction: Problem details: with ejection fraction 35-40% Status: Acute (7) Diabetes: Status: Acute Assessment and Plan: 69-year-old female with past medical history of COPD as well as CHF who presents to the hospital with acute hypoxic respiratory failure. Patient was also recently diagnosed with COVID-19 on 04/24 Acute on chronic hypoxic respiratory failure secondary to COVID-19 pneumonia , CHF and COPD exacerbations Tested positive COVID-19 on 04/24 Has elevated BNP and evidence of pulmonary congestion on chest x-ray COVID-19 pneumonia Continue Decadron, Not a candidate for remdesivir Continue O2 supplement and wean down as tolerated Positive blood culture blood cultures positive for Gram-positive cocci in clusters In new IV vancomycin Repeat blood cultures pending final sensitivity CHF exacerbation elevated BNP with chest x-ray evidence of pulmonary congestion Hold Bumex 1 mg b.i.d Continue Lasix 40 IV b.i.d strict I&O, daily weight, low-sodium diet Pending echocardiogram COPD exacerbation Steroids IV Inhalors Hyperglycemia 2/2 diabetes Start lantus insulin SSI Diabetic diet POC QIDAC CAD continue Metoprolol, Plavix DVT prophylaxis SCDs, documented history of intracranial hemorrhage as well as patient being on Plavix
--- NOTE | 2020-05-05 15:44 | P.PNNP_ITS ---
Subjective Subjective Date of Service: 05/05/20 Interval history: Patient seen and examined consult dictated Physical Exam Vital Signs: Vital Signs: Last Vital Signs Temp 98.1 F 05/05/20 15:39 Pulse 94 05/05/20 15:39 Resp 22 H 05/05/20 15:39 BP 155/74 H 05/05/20 15:39 Pulse Ox 94 05/05/20 15:39 Body Mass Index 34.7 Objective Data Labs CBC & Chem 7: 05/05/20 05:25 05/05/20 05:25 Labs: Laboratory Results - last 24 hr 05/04/20 05/04/20 05/04/20 13:37 14:57 14:57 WBC RBC Hgb Hct MCV MCH MCHC RDW Plt Count MPV Immature Gran % (Auto) Neut % (Auto) Lymph % (Auto) [place] % (Auto) Eos % (Auto) Baso % (Auto) Lymph # (Auto) [place] # (Auto) Eos # (Auto) Baso # (Auto) Abs Immat Gran (auto) Absolute Neuts (auto) Absolute Nucleated RBC Nucleated RBC % (auto) Neutrophils % (Manual) Band Neutrophils % Lymphocytes % (Manual) Monocytes % (Manual) Abs Neuts (Manual) Lymphocytes # (Manual) Monocytes # (Manual) Platelet Estimate Plt Morphology Comment RBC Morphology Polychromasia Macrocytosis Spherocytes Tear Drop Cells Ovalocytes Acanthocytes (Spur) Smear Path Review SEE NOTE Sodium 126 L Potassium 3.8 Chloride 83 L Carbon Dioxide 30 H Anion Gap 17 BUN 75 H D Creatinine 5.14 H* Estim Creat Clear Calc 10.0 Estimated GFR 8 POC Glucose Random Glucose 1076 H* Calcium 7.5 L D Magnesium 2.2 Ferritin 5660 H Total Bilirubin 0.5 Direct Bilirubin 0.4 AST 42 H ALT 31 Alkaline Phosphatase 539 H D Lactate Dehydrogenase 497 H Total Protein 6.3 L Albumin 2.2 L Lipase 92 H Random Vancomycin 05/04/20 05/04/20 05/04/20 17:42 17:49 18:40 WBC RBC Hgb Hct MCV MCH MCHC RDW Plt Count MPV Immature Gran % (Auto) Neut % (Auto) Lymph % (Auto) [place] % (Auto) Eos % (Auto) Baso % (Auto) Lymph # (Auto) [place] # (Auto) Eos # (Auto) Baso # (Auto) Abs Immat Gran (auto) Absolute Neuts (auto) Absolute Nucleated RBC Nucleated RBC % (auto) Neutrophils % (Manual) Band Neutrophils % Lymphocytes % (Manual) Monocytes % (Manual) Abs Neuts (Manual) Lymphocytes # (Manual) Monocytes # (Manual) Platelet Estimate Plt Morphology Comment RBC Morphology Polychromasia Macrocytosis Spherocytes Tear Drop Cells Ovalocytes Acanthocytes (Spur) Smear Path Review Sodium Potassium Chloride Carbon Dioxide Anion Gap BUN Creatinine Estim Creat Clear Calc Estimated GFR POC Glucose > 600 H* > 600 H* > 600 H* Random Glucose Calcium Magnesium Ferritin Total Bilirubin Direct Bilirubin AST ALT Alkaline Phosphatase Lactate Dehydrogenase Total Protein Albumin Lipase Random Vancomycin 05/04/20 05/04/20 05/04/20 19:34 20:13 21:21 WBC RBC Hgb Hct MCV MCH MCHC RDW Plt Count MPV Immature Gran % (Auto) Neut % (Auto) Lymph % (Auto) [place] % (Auto) Eos % (Auto) Baso % (Auto) Lymph # (Auto) [place] # (Auto) Eos # (Auto) Baso # (Auto) Abs Immat Gran (auto) Absolute Neuts (auto) Absolute Nucleated RBC Nucleated RBC % (auto) Neutrophils % (Manual) Band Neutrophils % Lymphocytes % (Manual) Monocytes % (Manual) Abs Neuts (Manual) Lymphocytes # (Manual) Monocytes # (Manual) Platelet Estimate Plt Morphology Comment RBC Morphology Polychromasia Macrocytosis Spherocytes Tear Drop Cells Ovalocytes Acanthocytes (Spur) Smear Path Review Sodium Potassium Chloride Carbon Dioxide Anion Gap BUN Creatinine Estim Creat Clear Calc Estimated GFR POC Glucose > 600 H* > 600 H* 587 H* Random Glucose Calcium Magnesium Ferritin Total Bilirubin Direct Bilirubin AST ALT Alkaline Phosphatase Lactate Dehydrogenase Total Protein Albumin Lipase Random Vancomycin 05/04/20 05/04/20 05/05/20 22:26 23:41 01:37 WBC RBC Hgb Hct MCV MCH MCHC RDW Plt Count MPV Immature Gran % (Auto) Neut % (Auto) Lymph % (Auto) [place] % (Auto) Eos % (Auto) Baso % (Auto) Lymph # (Auto) [place] # (Auto) Eos # (Auto) Baso # (Auto) Abs Immat Gran (auto) Absolute Neuts (auto) Absolute Nucleated RBC Nucleated RBC % (auto) Neutrophils % (Manual) Band Neutrophils % Lymphocytes % (Manual) Monocytes % (Manual) Abs Neuts (Manual) Lymphocytes # (Manual) Monocytes # (Manual) Platelet Estimate Plt Morphology Comment RBC Morphology Polychromasia Macrocytosis Spherocytes Tear Drop Cells Ovalocytes Acanthocytes (Spur) Smear Path Review Sodium Potassium Chloride Carbon Dioxide Anion Gap BUN Creatinine Estim Creat Clear Calc Estimated GFR POC Glucose 511 H* 395 H* 357 H* Random Glucose Calcium Magnesium Ferritin Total Bilirubin Direct Bilirubin AST ALT Alkaline Phosphatase Lactate Dehydrogenase Total Protein Albumin Lipase Random Vancomycin 05/05/20 05/05/20 05/05/20 05:25 05:25 08:06 WBC 5.1 RBC 3.38 L Hgb 10.6 L Hct 31.4 L MCV 92.9 D MCH 31.4 MCHC 33.8 RDW 13.7 Plt Count 97 L MPV 12.5 H Immature Gran % (Auto) Cancelled Neut % (Auto) Cancelled Lymph % (Auto) Cancelled [place] % (Auto) Cancelled Eos % (Auto) Cancelled Baso % (Auto) Cancelled Lymph # (Auto) Cancelled [place] # (Auto) Cancelled Eos # (Auto) Cancelled Baso # (Auto) Cancelled Abs Immat Gran (auto) Cancelled Absolute Neuts (auto) Cancelled Absolute Nucleated RBC 0.000 Nucleated RBC % (auto) 0.0 Neutrophils % (Manual) 68 Band Neutrophils % 12 H Lymphocytes % (Manual) 9 L Monocytes % (Manual) 11 Abs Neuts (Manual) 4.1 Lymphocytes # (Manual) 0.5 L Monocytes # (Manual) 0.6 Platelet Estimate DECREASED Plt Morphology Comment NORMAL RBC Morphology NOTED Polychromasia 1+ Macrocytosis 1+ Spherocytes 1+ Tear Drop Cells 1+ Ovalocytes 1+ Acanthocytes (Spur) 1+ Smear Path Review Sodium 131 L Potassium 3.7 Chloride 91 L Carbon Dioxide 28 Anion Gap 16 BUN 85 H* Creatinine 5.42 H* Estim Creat Clear Calc 9.8 Estimated GFR 8 POC Glucose 368 H* Random Glucose 386 H* Calcium 7.8 L Magnesium Ferritin Total Bilirubin Direct Bilirubin AST ALT Alkaline Phosphatase Lactate Dehydrogenase Total Protein Albumin Lipase Random Vancomycin 05/05/20 05/05/20 11:06 11:49 WBC RBC Hgb Hct MCV MCH MCHC RDW Plt Count MPV Immature Gran % (Auto) Neut % (Auto) Lymph % (Auto) [place] % (Auto) Eos % (Auto) Baso % (Auto) Lymph # (Auto) [place] # (Auto) Eos # (Auto) Baso # (Auto) Abs Immat Gran (auto) Absolute Neuts (auto) Absolute Nucleated RBC Nucleated RBC % (auto) Neutrophils % (Manual) Band Neutrophils % Lymphocytes % (Manual) Monocytes % (Manual) Abs Neuts (Manual) Lymphocytes # (Manual) Monocytes # (Manual) Platelet Estimate Plt Morphology Comment RBC Morphology Polychromasia Macrocytosis Spherocytes Tear Drop Cells Ovalocytes Acanthocytes (Spur) Smear Path Review Sodium Potassium Chloride Carbon Dioxide Anion Gap BUN Creatinine Estim Creat Clear Calc Estimated GFR POC Glucose 384 H* Random Glucose Calcium Magnesium Ferritin Total Bilirubin Direct Bilirubin AST ALT Alkaline Phosphatase Lactate Dehydrogenase Total Protein Albumin Lipase Random Vancomycin 20.6 H Microbiology Microbiology Results: Microbiology 05/04/20 13:36 Blood - Venous Blood Culture - Preliminary 05/04/20 13:40 Blood - Venous Blood Culture - Preliminary Assessment & Plan Assessment and plan (1) ESRD (end stage renal disease): Status: Acute (2) Diastolic CHF: Status: Acute (3) COVID-19: Status: Acute (4) Anemia: Status: Acute Assessment and Plan: will arrange for HD optimize volume status renal diet no need for epogen phosphate binders Thank you Time Spent With Patient Time: Total time spent is greater than 50% in coordination of care (as documented) at patient's floor/unit and/or counseling patient:
[2020-05-05 16:30] LABS: Glucose, Whole Blood 288 mg/dL (60-115)
[2020-05-05 20:20] LABS: Glucose, Whole Blood 204 mg/dL (60-115)
[2020-05-05] MEDS: Clopidogrel Bisulfate 75 MG TABLET PO (20:50)
[2020-05-05] MEDS: Atorvastatin Calcium 40 MG TABLET PO (20:50)
[2020-05-06] VITALS (9 sets, daily range): BP systolic 123–156; BP diastolic 67–83; PULSE 81–115; RESP 18–20; TEMP 36.1–36.9; O2SAT 89–97; BMI 33.3
[2020-05-06] MEDS: ondansetron HCL 4 MG/2 ML VIAL IVPUSH ×2 (01:18→11:24)
[2020-05-06] MEDS: LORazepam 0.5 MG TABLET PO ×2 (01:18→19:50)
[2020-05-06] MEDS: Prochlorperazine Edisylate 10 MG/2 ML VIAL 5 MG IVPUSH (04:57)
[2020-05-06] MEDS: cefTRIAXone sodium 1 GM in 0.9 % Sodium Chloride 50 ML IV (06:32)
[2020-05-06 06:58] LABS: Hematocrit 32.3 % (37-47); Hemoglobin 10.9 g/dl (12.0-16.0); Mean Corpuscular HGB Conc 33.7 g/dl (31.0-35.0); Mean Corpuscular Hemoglobin 31.3 pg (27.0-33.0); Mean Corpuscular Volume 92.8 fL (80-98); Mean Platelet Volume 13.3 fL (9.4-12.3); Platelet Count 123 X10*3/uL (160-400); Red Blood Count 3.48 X10*6/uL (4.20-5.50); Red Cell Distribution Width 13.8 % (11.0-16.0); White Blood Count 8.4 X10*3/uL (4.8-10.8)
[2020-05-06 07:02] LABS: PLT ABN DIST 1
[2020-05-06 07:28] LABS: Alanine Aminotransferase 51 U/L (0-31); Alkaline Phosphatase 293 U/L (39-117); Anion Gap 19 (12-20); Aspartate Amino Transferase 83 U/L (5-31); Bilirubin Direct 0.4 mg/dL (0.0-0.5); Bilirubin Total 0.5 mg/dL (0.0-1.0); Blood Urea Nitrogen 112 mg/dL (9-16); Calcium 7.7 mg/dL (8.4-10.2); Carbon Dioxide 24 mmol/L (22-29); Chloride 92 mmol/L (96-108); Creatinine Clr Calc Pharmacy 8.4; Estimated Glomerular Filt Rate 7; Glucose Random 253 mg/dL (60-115); Potassium 4.4 mmol/l (3.3-5.1); Sodium 131 mmol/L (135-145); Total Protein 6.1 g/dL (6.5-8.0)
[2020-05-06 07:31] LABS: Vancomycin Random 49.5 mcg/mL (15-20)
[2020-05-06 07:36] LABS: Glucose, Whole Blood 244 mg/dL (60-115)
[2020-05-06] MEDS: Insulin Lispro 100 UNIT/ML 3 ML VIAL SUBCUT ×3 (08:58→20:29)
[2020-05-06] MEDS: Metoprolol Tartrate 25 MG TABLET PO ×2 (08:59→19:51)
[2020-05-06] MEDS: Insulin Glargine,Hum.rec.anlog 100 UNIT/ML 10 ML VIAL 8 UNIT SUBCUT (08:59)
[2020-05-06] MEDS: 0.9 % Sodium Chloride Flush 3 ML SYRINGE IVFLUSH ×3 (08:59→20:29)
[2020-05-06] MEDS: Isosorbide Mononitrate 60 MG TAB.ER.24H PO (08:59)
[2020-05-06] MEDS: Cholecalciferol (Vitamin D3) 25 MCG TABLET 50 MCG PO (09:00)
[2020-05-06] MEDS: dexAMETHasone sod phosphate 4 MG/ML VIAL IVPUSH (09:00)
[2020-05-06] MEDS: Furosemide 40 MG/4 ML VIAL IVPUSH (09:00)
[2020-05-06] MEDS: FLUoxetine HCl Oral Solution 20 MG/5 ML SOLUTION PO (09:22)
[2020-05-06 10:55] LABS: Glucose, Whole Blood 318 mg/dL (60-115)
--- NOTE | 2020-05-06 11:59 | PM.PNNEP ---
Subjective Subjective Date of Service: 05/06/20 Interval history: seen and examined confused Physical Exam Vital Signs: Vital Signs: Last Vital Signs Temp 97.0 F 05/06/20 11:25 Pulse 82 05/06/20 11:25 Resp 18 05/06/20 11:25 BP 148/77 H 05/06/20 11:25 Pulse Ox 95 05/06/20 11:25 Body Mass Index 33.3 Const: General: no acute distress HENMT: Head: Yes normocephalic and Yes atraumatic Resp: Auscultation: diminished lung sounds Cardio: Heart sounds: S1 normal heart sound present and S2 normal heart sound present GI: Palpation (GI): Soft to palpation and nontender Extrem: General: Yes edema Objective Data Labs CBC & Chem 7: 05/06/20 06:04 05/06/20 06:04 Labs: Laboratory Results - last 24 hr 05/05/20 05/05/20 05/05/20 11:49 16:22 20:17 WBC RBC Hgb Hct MCV MCH MCHC RDW Plt Count MPV Absolute Nucleated RBC Nucleated RBC % (auto) Sodium Potassium Chloride Carbon Dioxide Anion Gap BUN Creatinine Estim Creat Clear Calc Estimated GFR POC Glucose 288 H 204 H Random Glucose Calcium Total Bilirubin Direct Bilirubin AST ALT Alkaline Phosphatase Total Protein Albumin Random Vancomycin 20.6 H 05/06/20 05/06/20 05/06/20 06:04 06:04 06:04 WBC 8.4 RBC 3.48 L Hgb 10.9 L Hct 32.3 L MCV 92.8 MCH 31.3 MCHC 33.7 RDW 13.8 Plt Count 123 L D MPV 13.3 H Absolute Nucleated RBC 0.000 Nucleated RBC % (auto) 0.0 Sodium 131 L Potassium 4.4 Chloride 92 L Carbon Dioxide 24 Anion Gap 19 BUN 112 H* D Creatinine 6.17 H* Estim Creat Clear Calc 8.4 Estimated GFR 7 POC Glucose Random Glucose 253 H Calcium 7.7 L Total Bilirubin 0.5 Direct Bilirubin 0.4 AST 83 H ALT 51 H Alkaline Phosphatase 293 H D Total Protein 6.1 L Albumin 2.0 L Random Vancomycin 49.5 H* 05/06/20 05/06/20 07:32 10:50 WBC RBC Hgb Hct MCV MCH MCHC RDW Plt Count MPV Absolute Nucleated RBC Nucleated RBC % (auto) Sodium Potassium Chloride Carbon Dioxide Anion Gap BUN Creatinine Estim Creat Clear Calc Estimated GFR POC Glucose 244 H 318 H Random Glucose Calcium Total Bilirubin Direct Bilirubin AST ALT Alkaline Phosphatase Total Protein Albumin Random Vancomycin Microbiology Microbiology Results: Microbiology 05/05/20 05:25 Blood - Venous Blood Culture - Preliminary 05/04/20 13:36 Blood - Venous Blood Culture - Preliminary Staphylococcus aureus 05/04/20 13:40 Blood - Venous Blood Culture - Preliminary Staphylococcus aureus 05/05/20 05:25 Blood - Venous Blood Culture - Preliminary Assessment & Plan Assessment and plan (1) ESRD (end stage renal disease): Status: Acute (2) Diastolic CHF: Status: Acute (3) COVID-19: Status: Acute (4) Anemia: Status: Acute Assessment and Plan: HD today optimize volume status renal diet no need for epogen phosphate binders Time Spent With Patient Time: Total time spent is greater than 50% in coordination of care (as documented) at patient's floor/unit and/or counseling patient:
--- NOTE | 2020-05-06 12:15 | CONS_ITS ---
DATE OF SERVICE: 05/05/2020 HISTORY OF PRESENT ILLNESS: This is a 69-year-old patient with history of end-stage renal disease, presented to the hospital with shortness of breath. The patient is confused, tells me that she had dialysis yesterday. She denies any chest pain or shortness of breath at the time of consultation. Denies any nausea, vomiting, or diarrhea. PAST MEDICAL HISTORY: Remarkable for end-stage renal disease, diabetes mellitus, hypertension, diastolic dysfunction, history of diverticulitis, anemia, COPD. MEDICATIONS: As an outpatient were reviewed. ALLERGIES: SHE IS ALLERGIC TO ASPIRIN, DIAZEPAM, OXYCODONE, PENICILLIN, METFORMIN, PERCOCET. SOCIAL HISTORY: Does not smoke. FAMILY HISTORY: Negative for kidney disease. REVIEW OF SYSTEMS: Ten-point systems negative except pertinent in history of present illness. PHYSICAL EXAMINATION: VITAL SIGNS: Blood pressure is 174/74, heart rate 85, respiratory rate 18, she is afebrile. CONSTITUTIONAL: Looks her stated age. No acute distress. NEUROLOGIC: Alert, awake. HEENT: Head, atraumatic and normocephalic. NECK: Supple. LUNGS: Decreased breath sounds. CARDIOVASCULAR: S1, S2. No rub. ABDOMEN: Soft, nontender. EXTREMITIES: With peripheral edema. LABORATORY DATA: Labs show white count 5.1, hemoglobin 10.6, platelet count is 97. Sodium 131, potassium 3.7, chloride 91, CO2 of 28, BUN 85, creatinine 5.42. IMPRESSION: 1. End-stage renal disease. 2. Diastolic heart failure. 3. COVID-19 infection. 4. Anemia. PLAN: Plan will be to resume hemodialysis as per schedule. We will optimize volume status. We will have her on a renal diet. She does not need Epogen for the time being. We will continue phosphate binders. Thank you for allowing me to participate in the care of this patient. MD KAVON Shields/MIGUEL / [phone]
--- NOTE | 2020-05-06 12:45 | HO.PM.IMPN ---
Subjective Subjective Date of Service: 05/06/20 Interval History: the patient was seen and evaluated this morning, spoke with with captain cannery tender Laying in bed, feels better or ED but still short of breath and requiring high oxygen flow Denies any fever, chills No reported other overnight events. Systemic review: No fever, chills or weakness No chest pain, palpitation Shortness of breath with exertion No abdominal pain, nausea or vomiting No urinary symptoms No any rash or wounds Physical Exam Vital Signs: Vital Signs: Last Vital Signs Temp 97.0 F 05/06/20 11:25 Pulse 82 05/06/20 11:25 Resp 18 05/06/20 11:25 BP 148/77 H 05/06/20 11:25 Pulse Ox 95 05/06/20 11:25 Body Mass Index 33.3 Constitutional : Alert, oriented to self and place, in mild distress Neck : Normal inspection, Supple Cardiovascular : RRR, S1 S2, no lower extremity edema Respiratory : Decreased bilaterally and weighs heard rhonchi, on high-flow oxygen Gastrointestinal: soft, lax, Normal bowel sounds, Non tender Skin : Warm/Dry, No rash Neurological : Alert & oriented x3, No focal deficit Objective Data Current Medications Generic Name Dose Route Start Last Admin Trade Name Freq PRN Reason Stop Dose Admin Atorvastatin Calcium 40 mg 05/05/20 21:00 05/05/20 20:50 Atorvastatin Calcium 40 Mg Tablet PO 40 mg BEDTIME OPAL Administration Clopidogrel Bisulfate 75 mg 05/05/20 21:00 05/05/20 20:50 Clopidogrel Bisulfate 75 Mg Tablet PO 75 mg BEDTIME OPAL Administration Dexamethasone Sodium Phosphate 4 mg 05/05/20 09:00 05/06/20 09:00 Dexamethasone Sod Phosphate 4 Mg/Ml Vial IVPUSH 4 mg DAILY OPAL Administration Docusate Sodium 100 mg 05/05/20 01:14 Docusate Sodium 100 Mg Capsule PO DAILY PRN Constipation Fluoxetine HCl 20 mg 05/05/20 09:00 05/06/20 09:22 Fluoxetine Hcl Oral Solution 20 Mg/5 Ml Solution PO 20 mg DAILY OPAL Administration Furosemide 40 mg 05/05/20 09:00 05/06/20 09:00 Furosemide 40 Mg/4 Ml Vial IVPUSH 40 mg BID@0900,1800 OPAL Administration Protocol Ceftriaxone Sodium 1 gm/ 50 mls @ 100 mls/hr 05/06/20 06:00 05/06/20 09:21 Sodium Chloride IV Infused Q24H [facility] Infusion Insulin Glargine 8 unit 05/05/20 12:05 05/06/20 08:59 Insulin Glargine,Hum.Rec.Anlog 100 Unit/Ml 10 Ml Vial SUBCUT 8 unit DAILY [facility] Administration Insulin Human Lispro 0 unit 05/05/20 11:30 05/06/20 11:25 Insulin Lispro 100 Unit/Ml 3 Ml Vial SUBCUT 8 unit QIDACHS [facility] Administration Protocol Isosorbide Mononitrate 60 mg 05/05/20 09:00 05/06/20 08:59 Isosorbide Mononitrate 60 Mg Tab.Er.24h PO 60 mg DAILY [facility] Administration Protocol Lorazepam 0.5 mg 05/05/20 01:14 05/06/20 01:18 Lorazepam 0.5 Mg Tablet PO 0.5 mg DAILY PRN Administration Agitation Metoprolol Tartrate 25 mg 05/05/20 09:00 05/06/20 08:59 Metoprolol Tartrate 25 Mg Tablet PO 25 mg BID [facility] Administration Protocol Non-Formulary Medication 1 puff 05/05/20 09:00 Umeclidinium-Vilanterol [Anoro Ellipta] INHALE DAILY [facility] Ondansetron HCl 4 mg 05/05/20 01:14 05/06/20 11:24 Ondansetron Hcl 4 Mg/2 Ml Vial IVPUSH 4 mg Q8H PRN Administration Nausea and Vomiting Pharmacy Consult 1 each 05/04/20 13:26 Consult Rx Perform Med Rec MISCELLANE ONCE PRN Consult order Pharmacy Consult 1 each 05/06/20 03:07 Consult Rx Vancomycin Dosing MISCELLANE DAILY PRN Consult order Quetiapine Fumarate 25 mg 05/05/20 01:14 Quetiapine Fumarate 25 Mg Tablet PO BEDTIME PRN Insomnia Sodium Chloride 3 ml 05/05/20 01:14 05/06/20 08:59 0.9 % Sodium Chloride Flush 3 Ml Syringe IVFLUSH 3 ml QSHIFT [facility] Administration Vitamin D 50 mcg 05/05/20 09:00 05/06/20 09:00 Cholecalciferol (Vitamin D3) 25 Mcg Tablet PO 50 mcg DAILY [facility] Administration Labs CBC & Chem 7: 05/06/20 06:04 05/06/20 06:04 Microbiology Microbiology Results: Microbiology 05/05/20 05:25 Blood - Venous Blood Culture - Preliminary 05/04/20 13:36 Blood - Venous Blood Culture - Preliminary Staphylococcus aureus 05/04/20 13:40 Blood - Venous Blood Culture - Preliminary Staphylococcus aureus 05/05/20 05:25 Blood - Venous Blood Culture - Preliminary Assessment and Plan (1) Respiratory failure with hypoxia: Status: Acute (2) COPD exacerbation: Status: Acute (3) Pneumonia due to COVID-19 virus: Status: Acute (4) Acute exacerbation of CHF (congestive heart failure): Status: Acute (5) Acute hyperglycemia: Status: Acute (6) Diastolic dysfunction: Problem details: with ejection fraction 35-40% Status: Acute (7) Diabetes: Status: Acute Assessment and Plan: 69-year-old female with past medical history of COPD as well as CHF who presents to the hospital with acute hypoxic respiratory failure. Patient was also recently diagnosed with COVID-19 on 04/24 Acute on chronic hypoxic respiratory failure secondary to COVID-19 pneumonia , CHF and ESRD with fluid overload Tested positive COVID-19 on 04/24 COVID-19 pneumonia Per ID recommendations discontinue Decadron Not a candidate for remdesivir Continue O2 supplement and wean down as tolerated Staph aureus bacteremia blood cultures positive for Staph aureus, pending sensitivity Concern for infected fistula or IV line To check vancomycin trough at time of dialysis Continue IV vancomycin Repeat blood cultures Diastolic CHF exacerbation elevated BNP with chest x-ray evidence of pulmonary congestion Discontinue Lasix Start Bumex 2 mg b.i.d. strict I&O, daily weight, low-sodium diet Normal EF echocardiogram ESRD on dialysis Nephrology input appreciated next [place] to do dialysis today and tomorrow COPD exacerbation Steroids IV Inhalors Hyperglycemia 2/2 diabetes Start lantus insulin SSI Diabetic diet POC QIDAC CAD continue Metoprolol, Plavix DVT prophylaxis SCDs, documented history of intracranial hemorrhage as well as patient being on Plavix
--- NOTE | 2020-05-06 12:46 | W.PM.IDCN ---
History of Present Illness Data of Consult Service Date: 05/06/20 Requesting physician: Bernie Ricks Primary Care Provider: Unknown Physician HPI Reason for consult: shortness of breath She presents with shortness of breath for several days,worse on admission She also has confusion She gets dialysis Review of Systems Review of Systems: Yes Unobtainable due to mental condition PMFSH Past Medical History Medical History (Updated 05/06/20 @ 13:34 by Ana Aguila MD) Bacteremia due to Staphylococcus Constipation COPD (chronic obstructive pulmonary disease) Diabetes Diastolic dysfunction Diverticulitis Dyspnea Social History Social History Household Members: Family Housing: Apartment Alcohol intake: never Smoking Status: Smoker, status unknown Use of substances other than those prescribed or required for medical reasons: Unknown Currently Displaying Signs/Symptoms of Drug Intoxication Withdrawal: No Advance Directives: No Advance Directives Information Provided: No Do you have thoughts of harming others: None Do you have a plan to hurt others: No Plan Recently lost weight without trying: Unsure service: No Current occupational status: disabled Meds Allergies Allergy/AdvReac Type Severity Reaction Status Date / Time acetaminophen [From TYLENOL] Allergy Unknown UNKNWON Verified 04/24/20 20:22 aspirin [ASPIRIN] Allergy Unknown UNKNOWN, Verified 04/24/20 20:22 stomach upset diazepam [From VALIUM] Allergy Unknown RESP Verified 04/24/20 20:22 FAILURE oxycodone Allergy Unknown Unknown Verified 04/24/20 20:22 penicillin V Allergy Unknown edema Verified 11/21/19 00:00 Penicillins Allergy Unknown HIVES Verified 04/24/20 20:22 metformin [Metformin] AdvReac Mild DIARRHEA Verified 04/24/20 20:22 Aspirin Adult Low Strength Allergy Unknown rash Uncoded 09/20/11 00:00 From PERCOCET Allergy Unknown ITCHING,APARNA Uncoded 01/30/20 15:49 H Penicillin Allergy Unknown anaphylaxis Uncoded 09/20/11 00:00 Home Medications Medication Instructions Recorded Confirmed Type atorvastatin 40 mg PO BEDTIME 04/24/20 05/04/20 History bumetanide 4 mg PO SUTUTHSA@0800,1700 04/24/20 05/04/20 History cholecalciferol (vitamin D3) 50 mcg PO QAM 04/24/20 05/04/20 History clopidogrel 75 mg PO BEDTIME 04/24/20 05/04/20 History fluoxetine 5 ml PO DAILY 04/24/20 05/04/20 History isosorbide mononitrate 60 mg PO QAM 04/24/20 05/04/20 History metoprolol tartrate 25 mg PO BID 04/24/20 05/04/20 History lorazepam 0.5 mg PO DAILY PRN 05/04/20 05/04/20 History quetiapine 25 mg PO BEDTIME PRN 05/04/20 05/04/20 History umeclidinium-vilanterol [Anoro 1 puff INHALATION DAILY 05/04/20 05/04/20 History Ellipta] Physical Exam Vital Signs: Vital Signs: Last Vital Signs Temp 97.0 F 05/06/20 11:25 Pulse 82 05/06/20 11:25 Resp 18 05/06/20 11:25 BP 148/77 H 05/06/20 11:25 Pulse Ox 95 05/06/20 11:25 Body Mass Index 33.3 Const: General: ill appearing HENMT: Head: Yes normal to inspection Resp: Effort & Inspection: normal respiratory effort Cardio: Rate: regular rate Rhythm: regular rhythm GI: Inspection: Yes normal to inspection Skin: General skin exam: no rashes or lesions noted Extrem: General: Yes normal to inspection Assessment and Plan (1) COVID-19: Problem details: She has 10 days positive test She would not likely benefit from Dexamethasone or Remdesivir Status: Acute Hold Remdesivir and Dexamethasone Would continue in isolation,immunosuppressed (2) ESRD (end stage renal disease): Status: Acute (3) Bacteremia due to Staphylococcus: Problem details: Probable dialysis catheter concern This is most likely cause of bacteremia Has fistula Status: Acute Vancomycin until sensitivities back Remove catheter Results Labs CBC & Chem 7: 05/06/20 06:04 05/06/20 06:04 Labs: Short CBC 05/06/20 Range/Units 06:04 WBC 8.4 (4.8-10.8) X10*3/uL Hgb 10.9 L (12.0-16.0) g/dl Hct 32.3 L (37-47) % Plt Count 123 L D (160-400) X10*3/uL BMP 05/06/20 06:04 Sodium 131 L Potassium 4.4 Chloride 92 L Carbon Dioxide 24 BUN 112 H* D Creatinine 6.17 H* Calcium 7.7 L Liver Function 05/06/20 Range/Units 06:04 Total Bilirubin 0.5 (0.0-1.0) mg/dL Direct Bilirubin 0.4 (0.0-0.5) mg/dL AST 83 H (5-31) U/L ALT 51 H (0-31) U/L Alkaline Phosphatase 293 H D (39-117) U/L Albumin 2.0 L (3.5-5.0) g/dL Microbiology Microbiology Results: Microbiology 05/05/20 05:25 Blood - Venous Blood Culture - Preliminary 05/04/20 13:36 Blood - Venous Blood Culture - Preliminary Staphylococcus aureus 05/04/20 13:40 Blood - Venous Blood Culture - Preliminary Staphylococcus aureus 05/05/20 05:25 Blood - Venous Blood Culture - Preliminary
--- NOTE | 2020-05-06 13:33 | MHC.CM.PN ---
Patient is on 13 liters O2 via oxymask to keep sats >90%. Patient is also on IV Dexamethasone COVID +, IV Ceftriaxone, BC+ and IV Lasix for CHF. ESRD and requiring HD. Discharge plan continues to be home with resumption of [employer] services. Patient bed bound and will need BLS transport. CM will continue to follow patient for discharge needs.
[2020-05-06 14:29] LABS: Vancomycin Trough 30.6 mcg/mL (10.0-20.0)
--- NOTE | 2020-05-06 14:29 | MHC.CLN ---
RE: CONSULT WILL ADD ENSURE CLEAR TID R/T POOR PO SUPPLEMENT IS LOW IN PHOS AND K+ R/T ESRD FOLLOWING
--- NOTE | 2020-05-06 15:15 | PC.NURSE ---
1430 while in dialysis, became very restless pulling on tubes, resp increased to 28. SAT 85-86% on 11 L Resp called and placed on 14L with oximizer and 100% non rebreather. Dr Ricks notified.
[2020-05-06 16:34] LABS: Glucose, Whole Blood 98 mg/dL (60-115)
[2020-05-06] MEDS: Bumetanide 1 MG TABLET 2 MG PO (17:48)
[2020-05-06 18:38] LABS: Vancomycin Random 23.1 mcg/mL (15-20)
--- NOTE | 2020-05-06 19:17 | MHC.PIE ---
p: patient O2 saturation 86% on 14L on the oxymizer. i: notified doctor Rambo. new order for high flow. notified respiratory therapy. respiratory therapy placed high flow. e: patient's oxygen saturation improved to 95% on 50L and 60%
[2020-05-06] MEDS: QUEtiapine Fumarate 25 MG TABLET PO (19:50)
[2020-05-06] MEDS: Clopidogrel Bisulfate 75 MG TABLET PO (19:51)
[2020-05-06] MEDS: Atorvastatin Calcium 40 MG TABLET PO (19:51)
[2020-05-06 20:13] LABS: Glucose, Whole Blood 242 mg/dL (60-115)
[2020-05-06] MEDS: LORazepam 2 MG/ML VIAL 0.5 MG IVPUSH (20:30)
[2020-05-07] VITALS (22 sets, daily range): BP systolic 86–127; BP diastolic 48–75; PULSE 71–92; RESP 18–22; TEMP 35.8–36.4; O2SAT 83–98
[2020-05-07 04:35] LABS: Hematocrit 30.5 % (37-47); Hemoglobin 10.3 g/dl (12.0-16.0); Mean Corpuscular HGB Conc 33.8 g/dl (31.0-35.0); Mean Corpuscular Hemoglobin 31.3 pg (27.0-33.0); Mean Corpuscular Volume 92.7 fL (80-98); Mean Platelet Volume 12.3 fL (9.4-12.3); Platelet Count 105 X10*3/uL (160-400); Red Blood Count 3.29 X10*6/uL (4.20-5.50); Red Cell Distribution Width 14.1 % (11.0-16.0)
[2020-05-07 04:39] LABS: Prothrombin Time 11.6 SEC (10.8-13.0)
[2020-05-07 05:02] LABS: Anion Gap 14 (12-20); Blood Urea Nitrogen 53 mg/dL (9-16); Calcium 7.4 mg/dL (8.4-10.2); Carbon Dioxide 26 mmol/L (22-29); Chloride 99 mmol/L (96-108); Creatinine Clr Calc Pharmacy 14.4; Estimated Glomerular Filt Rate 12; Glucose Random 166 mg/dL (60-115); Potassium 3.5 mmol/l (3.3-5.1); Sodium 135 mmol/L (135-145)
[2020-05-07 05:16] LABS: Vancomycin Random 23.5 mcg/mL (15-20)
[2020-05-07 07:38] LABS: Glucose, Whole Blood 125 mg/dL (60-115)
[2020-05-07] MEDS: Bumetanide 1 MG TABLET 2 MG PO ×2 (09:52→18:04)
[2020-05-07] MEDS: Cholecalciferol (Vitamin D3) 25 MCG TABLET 50 MCG PO (09:52)
[2020-05-07] MEDS: Metoprolol Tartrate 25 MG TABLET PO ×2 (09:53→19:45)
[2020-05-07] MEDS: Isosorbide Mononitrate 60 MG TAB.ER.24H PO (09:55)
[2020-05-07] MEDS: FLUoxetine HCl Oral Solution 20 MG/5 ML SOLUTION PO (09:55)
[2020-05-07] MEDS: 0.9 % Sodium Chloride Flush 3 ML SYRINGE IVFLUSH ×2 (09:56→19:44)
[2020-05-07 11:09] LABS: Glucose, Whole Blood 193 mg/dL (60-115)
--- NOTE | 2020-05-07 13:17 | IR_ITS ---
PROCEDURE: PERMACATH REMOVAL CLINICAL INFORMATION: Sepsis, infection. Removal of tunneled permacatheter. COVID positive. COMPARISON: None TECHNIQUE: Following explaining procedure, benefits and risk, a written consent was obtained. Patient was placed supine on fluoroscopy table in angio suite and the right anterior chest wall around the permacath was cleaned and draped in usual sterile manner. 1% lidocaine was injected around the permacath incision. Blunt dissection was carried out along the permacatheter into the neck. However, due to long-standing catheter in place the catheter could not be withdrawn. A second incision was performed at the clavicle and further blunt dissection was performed from that incision above and below. The catheter cuff was loosened and the entire catheter was then pulled out. There was minimal bleeding noted. The incision sites were then sutured with 3-0 absorbable sutures. Steri-Strips were placed subsequently and simple dressing postprocedure. Conscious sedation was utilized during the exam. Patient tolerated procedure very well. FINDINGS: Successful removal of tunneled right permacatheter with conscious sedation. Patient tolerated procedure extremely well. Conscious sedation was utilized during the exam. IR/IR cvc remov tunnel wo prt/sales planner IMPRESSION: Successful removal of tunneled right permacatheter. Fluoroscopy time: 4.5 minutes. Dose area product: 1034 cGy-cm2
--- NOTE | 2020-05-07 14:03 | PM.PNNEP ---
Subjective Subjective Date of Service: 05/07/20 Interval history: seen and examined had HD earlier discussed with ID Physical Exam Vital Signs: Vital Signs: Last Vital Signs Temp 97.1 F 05/07/20 11:31 Pulse 71 05/07/20 11:31 Resp 20 05/07/20 12:52 BP 110/60 05/07/20 11:31 Pulse Ox 91 L 05/07/20 11:31 Body Mass Index 33.3 Const: General: no acute distress HENMT: Head: Yes normocephalic and Yes atraumatic Neck: Neck: Yes supple Resp: Auscultation: diminished lung sounds Cardio: Heart sounds: S1 normal heart sound present and S2 normal heart sound present GI: Palpation (GI): Soft to palpation and nontender Extrem: General: No edema Objective Data Labs CBC & Chem 7: 05/07/20 04:01 05/07/20 04:01 Labs: Laboratory Results - last 24 hr 05/06/20 05/06/20 05/06/20 13:42 16:26 17:19 WBC RBC Hgb Hct MCV MCH MCHC RDW Plt Count MPV Absolute Nucleated RBC Nucleated RBC % (auto) PT INR Sodium Potassium Chloride Carbon Dioxide Anion Gap BUN Creatinine Estim Creat Clear Calc Estimated GFR POC Glucose 98 Random Glucose Calcium Vancomycin Trough 30.6 H* Random Vancomycin 23.1 H 05/06/20 05/07/20 05/07/20 20:09 04:01 04:01 WBC 8.0 RBC 3.29 L Hgb 10.3 L Hct 30.5 L MCV 92.7 MCH 31.3 MCHC 33.8 RDW 14.1 Plt Count 105 L MPV 12.3 Absolute Nucleated RBC 0.000 Nucleated RBC % (auto) 0.0 PT INR Sodium 135 Potassium 3.5 D Chloride 99 Carbon Dioxide 26 Anion Gap 14 BUN 53 H D Creatinine 3.63 H Estim Creat Clear Calc 14.4 Estimated GFR 12 POC Glucose 242 H Random Glucose 166 H Calcium 7.4 L Vancomycin Trough Random Vancomycin 05/07/20 05/07/20 05/07/20 04:01 04:01 07:31 WBC RBC Hgb Hct MCV MCH MCHC RDW Plt Count MPV Absolute Nucleated RBC Nucleated RBC % (auto) PT 11.6 INR 1.0 Sodium Potassium Chloride Carbon Dioxide Anion Gap BUN Creatinine Estim Creat Clear Calc Estimated GFR POC Glucose 125 H Random Glucose Calcium Vancomycin Trough Random Vancomycin 23.5 H 05/07/20 11:03 WBC RBC Hgb Hct MCV MCH MCHC RDW Plt Count MPV Absolute Nucleated RBC Nucleated RBC % (auto) PT INR Sodium Potassium Chloride Carbon Dioxide Anion Gap BUN Creatinine Estim Creat Clear Calc Estimated GFR POC Glucose 193 H Random Glucose Calcium Vancomycin Trough Random Vancomycin Microbiology Microbiology Results: Microbiology 05/05/20 05:25 Blood - Venous Blood Culture - Final Staphylococcus aureus 05/05/20 05:25 Blood - Venous Blood Culture - Final Staphylococcus aureus 05/04/20 13:40 Blood - Venous Blood Culture - Final Staphylococcus aureus 05/04/20 13:36 Blood - Venous Blood Culture - Final Staphylococcus aureus Assessment & Plan Assessment and plan (1) ESRD (end stage renal disease): Status: Acute (2) Diastolic CHF: Status: Acute (3) COVID-19: Problem details: She has 10 days positive test She would not likely benefit from Dexamethasone or Remdesivir Status: Acute (4) Anemia: Status: Acute (5) Bacteremia: Status: Acute Assessment and Plan: normally dialyzes t-t-s had HD earlier bacteremia concerning for line infection REC HD today discontinue dialysis tunnelled catheter Abx per ID dose vancomycin post HD line holiday renal diet no need for epogen phosphate binders Time Spent With Patient Time: Total time spent is greater than 50% in coordination of care (as documented) at patient's floor/unit and/or counseling patient:
[2020-05-07 16:38] LABS: Glucose, Whole Blood 222 mg/dL (60-115)
[2020-05-07] MEDS: 0.9 % Sodium Chloride 1,000 ML 999 ML IV (16:43)
--- NOTE | 2020-05-07 17:33 | P.PNIM_ITS ---
Subjective Subjective Date of Service: 05/07/20 Interval History: the patient was seen and evaluated this morning and in the afternoon Oxygen requirement has been increasing since yesterday and right now she is on high-flow and non-rebreather After she went for dialysis catheter removal she went into desaturation and hypotension requiring ICU evaluation She reports feeling tired and weak but no fever or chills No reported other overnight events. Systemic review: No fever, chills but feeling tired and weak weakness No chest pain, palpitation Has significant shortness of breath but no reported coughing No abdominal pain, nausea or vomiting No urinary symptoms No any rash or wounds Physical Exam Vital Signs: Vital Signs: Last Vital Signs Temp 96.5 F L 05/07/20 16:14 Pulse 86 05/07/20 16:14 Resp 18 05/07/20 16:14 BP 100/50 L 05/07/20 17:07 Pulse Ox 90 L 05/07/20 16:14 Body Mass Index 33.3 Constitutional : Alert, oriented to self and place, in moderate respiratory distress Neck : Normal inspection, Supple Cardiovascular : RRR, S1 S2, no lower extremity edema Respiratory : Increased work of breathing, increased oxygen requirement to high-flow and non-rebreather mask, Decreased bilaterally air entry, bilateral scattered rhonchi, Gastrointestinal: soft, lax, Normal bowel sounds, Non tender Skin : Warm/Dry, No rash Neurological : Alert & oriented to self and place, No focal deficit Objective Data Current Medications Generic Name Dose Route Start Last Admin Trade Name Freq PRN Reason Stop Dose Admin Atorvastatin Calcium 40 mg 05/05/20 21:00 05/06/20 19:51 Atorvastatin Calcium 40 Mg Tablet PO 40 mg BEDTIME OPAL Administration Bumetanide 2 mg 05/06/20 17:00 05/07/20 09:52 Bumetanide 1 Mg Tablet PO 2 mg BID@0800,1700 OPAL Administration Protocol Clopidogrel Bisulfate 75 mg 05/05/20 21:00 05/06/20 19:51 Clopidogrel Bisulfate 75 Mg Tablet PO 75 mg BEDTIME OPAL Administration Docusate Sodium 100 mg 05/05/20 01:14 Docusate Sodium 100 Mg Capsule PO DAILY PRN Constipation Fluoxetine HCl 20 mg 05/05/20 09:00 05/07/20 09:55 Fluoxetine Hcl Oral Solution 20 Mg/5 Ml Solution PO 20 mg DAILY OPAL Administration Insulin Human Lispro 0 unit 05/05/20 11:30 05/07/20 12:54 Insulin Lispro 100 Unit/Ml 3 Ml Vial SUBCUT Not Given QIDACHS [facility] Protocol Isosorbide Mononitrate 60 mg 05/05/20 09:00 05/07/20 09:55 Isosorbide Mononitrate 60 Mg Tab.Er.24h PO 60 mg DAILY [facility] Administration Protocol Lorazepam 0.5 mg 05/05/20 01:14 05/06/20 19:50 Lorazepam 0.5 Mg Tablet PO 0.5 mg DAILY PRN Administration Agitation Metoprolol Tartrate 25 mg 05/05/20 09:00 05/07/20 09:53 Metoprolol Tartrate 25 Mg Tablet PO 25 mg BID [facility] Administration Protocol Non-Formulary Medication 1 puff 05/05/20 09:00 Umeclidinium-Vilanterol [Anoro Ellipta] INHALE DAILY [facility] Ondansetron HCl 4 mg 05/05/20 01:14 05/06/20 11:24 Ondansetron Hcl 4 Mg/2 Ml Vial IVPUSH 4 mg Q8H PRN Administration Nausea and Vomiting Pharmacy Consult 1 each 05/04/20 13:26 Consult Rx Perform Med Rec MISCELLANE ONCE PRN Consult order Pharmacy Consult 1 each 05/06/20 03:07 Consult Rx Vancomycin Dosing MISCELLANE DAILY PRN Consult order Quetiapine Fumarate 25 mg 05/05/20 01:14 05/06/20 19:50 Quetiapine Fumarate 25 Mg Tablet PO 25 mg BEDTIME PRN Administration Insomnia Sodium Chloride 3 ml 05/05/20 01:14 05/07/20 17:05 0.9 % Sodium Chloride Flush 3 Ml Syringe IVFLUSH Not Given QSHIFT [facility] Vitamin D 50 mcg 05/05/20 09:00 05/07/20 09:52 Cholecalciferol (Vitamin D3) 25 Mcg Tablet PO 50 mcg DAILY OPAL Administration Labs CBC & Chem 7: 05/07/20 04:01 05/07/20 04:01 Microbiology Microbiology Results: Microbiology 05/05/20 05:25 Blood - Venous Blood Culture - Final Staphylococcus aureus 05/05/20 05:25 Blood - Venous Blood Culture - Final Staphylococcus aureus 05/04/20 13:40 Blood - Venous Blood Culture - Final Staphylococcus aureus 05/04/20 13:36 Blood - Venous Blood Culture - Final Staphylococcus aureus Assessment and Plan (1) Respiratory failure with hypoxia: Status: Acute (2) COPD exacerbation: Status: Acute (3) Pneumonia due to COVID-19 virus: Status: Acute (4) Acute exacerbation of CHF (congestive heart failure): Status: Acute (5) Acute hyperglycemia: Status: Acute (6) Diastolic dysfunction: Problem details: with ejection fraction 35-40% Status: Acute (7) Diabetes: Status: Acute Assessment and Plan: 69-year-old female with past medical history of COPD as well as CHF who presents to the hospital with acute hypoxic respiratory failure. Patient was also recently diagnosed with COVID-19 on 04/24 Acute on chronic hypoxic respiratory failure secondary to COVID-19 pneumonia , CHF and ESRD with fluid overload Tested positive COVID-19 on 04/24 Increasing oxygen requirement over the last few days, ICU evaluated the patient today To check ABG COVID-19 pneumonia Per ID recommendations discontinue Decadron Not a candidate for remdesivir Continue O2 supplement and wean down as tolerated Staph aureus bacteremia blood cultures positive for Staph aureus, pansensitive Dialysis catheter removed Discontinue vancomycin To start doxycycline Repeat blood cultures Diastolic CHF exacerbation elevated BNP with chest x-ray evidence of pulmonary congestion Continue home does Bumex 2 mg b.i.d. strict I&O, daily weight, low-sodium diet Normal EF echocardiogram ESRD on dialysis Nephrology input appreciated Had 2 sessions of dialysis COPD exacerbation Steroids IV Inhalors Hyperglycemia 2/2 diabetes Start lantus insulin SSI Diabetic diet POC QIDAC CAD continue Metoprolol, Plavix DVT prophylaxis SCDs, documented history of intracranial hemorrhage as well as patient being on Plavix
[2020-05-07] MEDS: Doxycycline Hyclate 100 MG in 0.9 % Sodium Chloride 250 ML 166.67 MG IV (18:04)
--- NOTE | 2020-05-07 18:09 | P.EN_ITS ---
Event Note Date of Service: 05/07/20 Event Note: I was asked by Dr. Ricks to look at Mrs. Garry curiel of hypotens ion and hypoxemia and altered MS. The patient is a 69 yo woman with PMHx of obesity, diabetes, ESRD on dialysis via Permcath, COPD, and CHF, on 2L oxygen at home. The patient was seen in the ED on 04/24 for dizziness and hypertension and at that time she tested positive for COVID; she was Sat?ing 100% on 2L NC and CXR showed increased interstitial markings read as ?Pulmonary venous congestion. Perihilar interstitial opacities likely correspond to mild interstitial edema, though a viral pneumonia is also on the differential.? She presented back to the hospital on May 04 with shortness of breath and AMS. Family had increased her baseline oxygen to 5 L. In the ED, she was found to be satting in the mid 80s (? FiO2). She?d missed her dialysis that day. She was put on non-rebreather with improvement of her Sat to the 90s. CXR (IMO) showed low lung volumes with diffuse bilateral alveolo-interstitial markings, consistent with vascular congestion or COVID. She was admitted to Medicine. BC?s came back growing MSSA. She?s been on vancomycin. On 15 L non-rebreather face mask, she was initially satting in the high 90s. By the next day, May 06, she was on high-flow nasal cannula 50 L/60%, satting mid 90s. Earlier today she was on high-flow nasal cannula 50 L/65%, satting about 90%. Apparently, she was taken down to IR for procedure today -- removal of her PermCath -- and was recovered in PACU. On arrival back to her room on [place], she was somnolent, hypotensive, and hypoxemic. Dr. Ricks called me and I came in to see her. As far as I can tell, she was given Narcan and/or flumazenil in the PACU. By the time I got up to her room, she was completely awake, looking around, and talking (altho I am unable to understand [place] Sor[place]). I examined her with Dr. Wagner jay. I?m guessing that her mental status is fairly normal (altho I cannot r/o the poss that she may be confused). RR is about 24, with SpO2 97% on HFNC + NRBFM, with no WOB other than that attributable to her RR. BP was 100/50. IMPRESSION: The acute decompensation was likely 2? oversedation (or inadequately reversed sedation). The patient looks OK now, no danger from a vital fxns point of view. Appears safe to stay on IMC. Recommend: 1. A blood gas to make sure her resp status is OK. 2. Secure IV access. Any patient requiring HFNC with high FiO2 must have secure IV access. A 22 g angio is not adequate. I communicated those rec's to Dr. Ricks. ADDENDUM: Parenthetically, I would rec steroids for her COVID pneumonia. Time: 45+ min.
[2020-05-07] MEDS: Atorvastatin Calcium 40 MG TABLET PO (19:43)
[2020-05-07] MEDS: dexAMETHasone sod phosphate 4 MG/ML VIAL 6 MG IVPUSH (19:43)
[2020-05-07] MEDS: Clopidogrel Bisulfate 75 MG TABLET PO (19:44)
[2020-05-07] MEDS: LORazepam 0.5 MG TABLET PO (19:44)
[2020-05-07] MEDS: QUEtiapine Fumarate 25 MG TABLET PO (19:44)
--- NOTE | 2020-05-07 19:44 | PC.NURSE ---
pt back from dialysis cath removal ~1600 pt put back on hi-edilia when in room. pt hypoxic sat low 80s on hi edilia maxed out. placed pt on rebreather as well. - sat 89% pt was sleepy but easily arousable when called out her name. Took VS BP manual at that time 86/48 MD notified - 1000ml NS bolus ordered and administered. Test Fixture Assembler and hospiatlist to bedside to eval pt - pt then was becoming more awake - BP recheck post 1L 100/50 Sat 96% at this time on hiflo and NRB - NRB removed sat 88-93% on hi edilia and remains there at this time ~1700 RN inspected dressing site where cath was removed- seemed to more swollen and pink - looking like hematoma forming underneath; pt had two dressings. one was saturated at this time. MD to room to evaluate. We annie a line w/marker around hematoma to monitor size. Pt recommended pressure - put additional pressure dressing on and aide to room whom applied direct pressure for 30min. Passed info onto oncoming RN to continue to closely monitor area and continue any more MD orders
[2020-05-07 20:26] LABS: Glucose, Whole Blood 190 mg/dL (60-115)
[2020-05-07 22:01] LABS: Hematocrit 32.6 % (37-47); Hemoglobin 10.8 g/dl (12.0-16.0); Mean Corpuscular HGB Conc 33.1 g/dl (31.0-35.0); Mean Corpuscular Hemoglobin 31.6 pg (27.0-33.0); Mean Corpuscular Volume 95.3 fL (80-98); Mean Platelet Volume 12.7 fL (9.4-12.3); Red Blood Count 3.42 X10*6/uL (4.20-5.50); Red Cell Distribution Width 14.5 % (11.0-16.0); White Blood Count 8.4 X10*3/uL (4.8-10.8)
[2020-05-07 22:03] LABS: Platelet Count 94 X10*3/uL (160-400)
[2020-05-08] VITALS (14 sets, daily range): BP systolic 102–145; BP diastolic 55–83; PULSE 74–86; RESP 20–28; TEMP 36.5–36.6; O2SAT 94–98
[2020-05-08] MEDS: Doxycycline Hyclate 100 MG in 0.9 % Sodium Chloride 250 ML 166.67 MG IV ×2 (05:18→17:01)
[2020-05-08 07:05] LABS: Hemoglobin 9.7 g/dl (12.0-16.0); Mean Corpuscular HGB Conc 33.4 g/dl (31.0-35.0); Mean Corpuscular Hemoglobin 31.3 pg (27.0-33.0); Mean Corpuscular Volume 93.5 fL (80-98); Mean Platelet Volume 12.8 fL (9.4-12.3); Red Cell Distribution Width 14.3 % (11.0-16.0); White Blood Count 5.9 X10*3/uL (4.8-10.8)
[2020-05-08 07:06] LABS: Platelet Count 73 X10*3/uL (160-400)
[2020-05-08 07:26] LABS: Anion Gap 17 (12-20); Blood Urea Nitrogen 41 mg/dL (9-16); Calcium 7.1 mg/dL (8.4-10.2); Carbon Dioxide 22 mmol/L (22-29); Chloride 102 mmol/L (96-108); Creatinine Clr Calc Pharmacy 18.5; Estimated Glomerular Filt Rate 17; Glucose Random 258 mg/dL (60-115); Potassium 3.7 mmol/l (3.3-5.1); Sodium 137 mmol/L (135-145)
[2020-05-08 07:52] LABS: Glucose, Whole Blood 261 mg/dL (60-115)
[2020-05-08] MEDS: Cholecalciferol (Vitamin D3) 25 MCG TABLET 50 MCG PO (09:05)
[2020-05-08] MEDS: Insulin Lispro 100 UNIT/ML 3 ML VIAL SUBCUT ×4 (09:05→20:23)
[2020-05-08] MEDS: Bumetanide 1 MG TABLET 2 MG PO ×2 (09:05→17:00)
[2020-05-08] MEDS: Isosorbide Mononitrate 60 MG TAB.ER.24H PO (09:06)
[2020-05-08] MEDS: 0.9 % Sodium Chloride Flush 3 ML SYRINGE IVFLUSH ×3 (09:06→20:24)
[2020-05-08] MEDS: Metoprolol Tartrate 25 MG TABLET PO ×2 (09:06→20:24)
[2020-05-08] MEDS: dexAMETHasone sod phosphate 4 MG/ML VIAL 6 MG IVPUSH (09:06)
[2020-05-08] MEDS: FLUoxetine HCl Oral Solution 20 MG/5 ML SOLUTION PO (09:07)
[2020-05-08 11:51] LABS: Glucose, Whole Blood 284 mg/dL (60-115)
--- NOTE | 2020-05-08 14:04 | MHC.CM.PN ---
DP HOME WITH RESUMPTION OF [employer] BLS TRANSPORT.
--- NOTE | 2020-05-08 14:33 | HO.PM.IMPN ---
Subjective Subjective Date of Service: 05/08/20 Interval History: T new he patient was seen and evaluated this morning Laying in bed, feels comfortable Denies any fever, chills Hematoma on chest wall controlled overnight, hemoglobin stable No reported other overnight events. Systemic review: No fever, chills but reports feeling weak and asking about going home No chest pain, palpitation Rapid breathing and shortness of breath with minimal activity No abdominal pain, nausea or vomiting No urinary symptoms No any rash or wounds Physical Exam Vital Signs: Vital Signs: Last Vital Signs Temp 97.7 F 05/08/20 11:49 Pulse 84 05/08/20 11:49 Resp 28 H 05/08/20 11:49 BP 119/62 05/08/20 11:49 Pulse Ox 96 05/08/20 11:49 Body Mass Index 33.3 Constitutional : Alert, oriented to self and place, in moderate respiratory distress Neck : Normal inspection, Supple Cardiovascular : RRR, S1 S2, no lower extremity edema Respiratory : Increased work of breathing, increased oxygen requirement to high-flow and non-rebreather mask, Decreased bilaterally air entry, bilateral scattered rhonchi, Gastrointestinal: soft, lax, Normal bowel sounds, Non tender Skin : Warm/Dry, No rash, chest wall hematoma decreased in size with compression, no active bleeding noticed Neurological : Alert & oriented to self and place, No focal deficit Objective Data Current Medications Generic Name Dose Route Start Last Admin Trade Name Freq PRN Reason Stop Dose Admin Atorvastatin Calcium 40 mg 05/05/20 21:00 05/07/20 19:43 Atorvastatin Calcium 40 Mg Tablet PO 40 mg BEDTIME OPAL Administration Bumetanide 2 mg 05/06/20 17:00 05/08/20 09:05 Bumetanide 1 Mg Tablet PO 2 mg BID@0800,1700 OPAL Administration Protocol Clopidogrel Bisulfate 75 mg 05/05/20 21:00 05/07/20 19:44 Clopidogrel Bisulfate 75 Mg Tablet PO 75 mg BEDTIME OPAL Administration Dexamethasone Sodium Phosphate 6 mg 05/07/20 18:35 05/08/20 09:06 Dexamethasone Sod Phosphate 4 Mg/Ml Vial IVPUSH 6 mg DAILY [facility] Administration Docusate Sodium 100 mg 05/05/20 01:14 Docusate Sodium 100 Mg Capsule PO DAILY PRN Constipation Fluoxetine HCl 20 mg 05/05/20 09:00 05/08/20 09:07 Fluoxetine Hcl Oral Solution 20 Mg/5 Ml Solution PO 20 mg DAILY [facility] Administration Doxycycline Hyclate 100 mg/ 250 mls @ 166.67 mls/hr 05/07/20 17:45 05/08/20 10:24 Sodium Chloride IV Infused Q12H [facility] Infusion Insulin Glargine 8 unit 05/07/20 21:00 05/07/20 20:29 Insulin Glargine,Hum.Rec.Anlog 100 Unit/Ml 10 Ml Vial SUBCUT Not Given BEDTIME [facility] Insulin Human Lispro 0 unit 05/05/20 11:30 05/08/20 11:54 Insulin Lispro 100 Unit/Ml 3 Ml Vial SUBCUT 6 unit QIDACHS [facility] Administration Protocol Isosorbide Mononitrate 60 mg 05/05/20 09:00 05/08/20 09:06 Isosorbide Mononitrate 60 Mg Tab.Er.24h PO 60 mg DAILY [facility] Administration Protocol Lorazepam 0.5 mg 05/05/20 01:14 05/07/20 19:44 Lorazepam 0.5 Mg Tablet PO 0.5 mg DAILY PRN Administration Agitation Metoprolol Tartrate 25 mg 05/05/20 09:00 05/08/20 09:06 Metoprolol Tartrate 25 Mg Tablet PO 25 mg BID [facility] Administration Protocol Non-Formulary Medication 1 puff 05/05/20 09:00 Umeclidinium-Vilanterol [Anoro Ellipta] INHALE DAILY [facility] Ondansetron HCl 4 mg 05/05/20 01:14 05/06/20 11:24 Ondansetron Hcl 4 Mg/2 Ml Vial IVPUSH 4 mg Q8H PRN Administration Nausea and Vomiting Pharmacy Consult 1 each 05/04/20 13:26 Consult Rx Perform Med Rec MISCELLANE ONCE PRN Consult order Pharmacy Consult 1 each 05/06/20 03:07 Consult Rx Vancomycin Dosing MISCELLANE DAILY PRN Consult order Quetiapine Fumarate 25 mg 05/05/20 01:14 05/07/20 19:44 Quetiapine Fumarate 25 Mg Tablet PO 25 mg BEDTIME PRN Administration Insomnia Sodium Chloride 3 ml 05/05/20 01:14 05/08/20 09:06 0.9 % Sodium Chloride Flush 3 Ml Syringe IVFLUSH 3 ml QSHIFT [facility] Administration Vitamin D 50 mcg 05/05/20 09:00 05/08/20 09:05 Cholecalciferol (Vitamin D3) 25 Mcg Tablet PO 50 mcg DAILY [facility] Administration Labs CBC & Chem 7: 05/08/20 05:48 05/08/20 05:48 Microbiology Microbiology Results: Microbiology 05/07/20 04:01 Blood - Venous Blood Culture - Preliminary No growth after 24 hours. 05/07/20 04:01 Blood - Venous Blood Culture - Preliminary 05/05/20 05:25 Blood - Venous Blood Culture - Final Staphylococcus aureus 05/05/20 05:25 Blood - Venous Blood Culture - Final Staphylococcus aureus 05/04/20 13:40 Blood - Venous Blood Culture - Final Staphylococcus aureus 05/04/20 13:36 Blood - Venous Blood Culture - Final Staphylococcus aureus Assessment and Plan (1) Respiratory failure with hypoxia: Status: Acute (2) COPD exacerbation: Status: Acute (3) Pneumonia due to COVID-19 virus: Status: Acute (4) Acute exacerbation of CHF (congestive heart failure): Status: Acute (5) Acute hyperglycemia: Status: Acute (6) Diastolic dysfunction: Problem details: with ejection fraction 35-40% Status: Acute (7) Diabetes: Status: Acute Assessment and Plan: 69-year-old female with past medical history of COPD as well as CHF who presents to the hospital with acute hypoxic respiratory failure. Patient was also recently diagnosed with COVID-19 on 04/24 Acute on chronic hypoxic respiratory failure secondary to COVID-19 pneumonia , CHF and ESRD with fluid overload Tested positive COVID-19 on 04/24 Increasing oxygen requirement over the last few days Continue steroid management Not a candidate for remdesivir Continue O2 supplement and wean down as tolerated Discussed with store sales consultant, no need for transfer and will continue to follow Staph aureus bacteremia blood cultures positive for Staph aureus, pansensitive Dialysis catheter removed Discontinue vancomycin Continue doxycycline Plan to discharge on total 4 weeks of IV antibiotics Repeat blood cultures Id to follow Diastolic CHF exacerbation elevated BNP with chest x-ray evidence of pulmonary congestion Continue home does Bumex 2 mg b.i.d. strict I&O, daily weight, low-sodium diet Normal EF echocardiogram ESRD on dialysis Nephrology input appreciated Had 2 sessions of dialysis, will need new dialysis catheter by Monday COPD exacerbation Steroids IV Inhalors Hyperglycemia 2/2 diabetes Start lantus insulin SSI Diabetic diet POC QIDAC CAD continue Metoprolol, Plavix DVT prophylaxis SCDs, documented history of intracranial hemorrhage as well as patient being on Plavix
[2020-05-08 16:51] LABS: Glucose, Whole Blood 174 mg/dL (60-115)
--- NOTE | 2020-05-08 17:31 | PM.PNNEP ---
Subjective Subjective Date of Service: 05/08/20 Interval history: Events noted HD yesterday and Pcath removed yestreday d/tconcern for infection Physical Exam Vital Signs: Vital Signs: Last Vital Signs Temp 97.8 F 05/08/20 15:00 Pulse 76 05/08/20 15:00 Resp 24 H 05/08/20 15:09 BP 140/55 H 05/08/20 15:00 Pulse Ox 94 05/08/20 15:00 Body Mass Index 33.3 Const: General: no acute distress HENMT: Head: Yes normocephalic and Yes atraumatic Neck: Neck: Yes supple Resp: Auscultation: diminished lung sounds Cardio: Heart sounds: S1 normal heart sound present and S2 normal heart sound present GI: Palpation (GI): Soft to palpation and nontender Extrem: General: No edema Objective Data Labs CBC & Chem 7: 05/08/20 05:48 05/08/20 05:48 Labs: Laboratory Results - last 24 hr 05/07/20 05/07/20 05/08/20 09:40 20:18 05:48 WBC 8.4 5.9 RBC 3.42 L 3.10 L Hgb 10.8 L 9.7 L Hct 32.6 L 29.0 L MCV 95.3 93.5 MCH 31.6 31.3 MCHC 33.1 33.4 RDW 14.5 14.3 Plt Count 94 L 73 L MPV 12.7 H 12.8 H Absolute Nucleated RBC 0.000 0.000 Nucleated RBC % (auto) 0.0 0.0 Sodium Potassium Chloride Carbon Dioxide Anion Gap BUN Creatinine Estim Creat Clear Calc Estimated GFR POC Glucose 190 H Random Glucose Calcium 05/08/20 05/08/20 05/08/20 05:48 07:48 11:47 WBC RBC Hgb Hct MCV MCH MCHC RDW Plt Count MPV Absolute Nucleated RBC Nucleated RBC % (auto) Sodium 137 Potassium 3.7 Chloride 102 Carbon Dioxide 22 Anion Gap 17 BUN 41 H Creatinine 2.81 H Estim Creat Clear Calc 18.5 Estimated GFR 17 POC Glucose 261 H 284 H Random Glucose 258 H D Calcium 7.1 L 05/08/20 16:46 WBC RBC Hgb Hct MCV MCH MCHC RDW Plt Count MPV Absolute Nucleated RBC Nucleated RBC % (auto) Sodium Potassium Chloride Carbon Dioxide Anion Gap BUN Creatinine Estim Creat Clear Calc Estimated GFR POC Glucose 174 H Random Glucose Calcium Microbiology Microbiology Results: Microbiology 05/07/20 04:01 Blood - Venous Blood Culture - Preliminary No growth after 24 hours. 05/07/20 04:01 Blood - Venous Blood Culture - Preliminary 05/05/20 05:25 Blood - Venous Blood Culture - Final Staphylococcus aureus 05/05/20 05:25 Blood - Venous Blood Culture - Final Staphylococcus aureus 05/04/20 13:40 Blood - Venous Blood Culture - Final Staphylococcus aureus 05/04/20 13:36 Blood - Venous Blood Culture - Final Staphylococcus aureus Assessment & Plan Assessment and plan (1) ESRD (end stage renal disease): Status: Acute (2) Diastolic CHF: Status: Acute (3) COVID-19: Problem details: She has 10 days positive test She would not likely benefit from Dexamethasone or Remdesivir Status: Acute (4) Anemia: Status: Acute (5) Bacteremia: Status: Acute Assessment and Plan: 1. esrd;nl tTS last HD 05/07 2. Line infection form Pcath ?...line removed 3. Anemai REC: Abx as per ID; will need new Pcath..hopefully can wait unitl Monday and will ask IR to place Time Spent With Patient Time: Total time spent is greater than 50% in coordination of care (as documented) at patient's floor/unit and/or counseling patient:
[2020-05-08 20:21] LABS: Glucose, Whole Blood 206 mg/dL (60-115)
[2020-05-08] MEDS: Insulin Glargine,Hum.rec.anlog 100 UNIT/ML 10 ML VIAL 8 UNIT SUBCUT (20:23)
[2020-05-08] MEDS: ondansetron HCL 4 MG/2 ML VIAL IVPUSH (20:24)
[2020-05-08] MEDS: QUEtiapine Fumarate 25 MG TABLET PO (20:24)
[2020-05-08] MEDS: Atorvastatin Calcium 40 MG TABLET PO (20:24)
[2020-05-08] MEDS: LORazepam 0.5 MG TABLET PO (20:24)
[2020-05-08] MEDS: Clopidogrel Bisulfate 75 MG TABLET PO (20:24)
[2020-05-09] VITALS (17 sets, daily range): BP systolic 137–154; BP diastolic 63–80; PULSE 67–86; RESP 18–22; TEMP 35.7–36.3; O2SAT 91–98; BMI 33.2
--- NOTE | 2020-05-09 | ECG_ITS ---
Test Reason : qt Blood Pressure : / mmHG Vent. Rate : 079 BPM Atrial Rate : 079 BPM P-R Int : 116 ms QRS Dur : 084 ms QT Int : 398 ms P-R-T Axes : 046 012 154 degrees QTc Int : 456 ms Normal sinus rhythm Minimal voltage criteria for LVH, may be normal variant T wave abnormality, consider lateral ischemia Abnormal ECG When compared to the previous EKG of No significant changes seen Referred By: Raji Sanders Electronically Signed By:ARTURO ALDANA MD
[2020-05-09] MEDS: Doxycycline Hyclate 100 MG in 0.9 % Sodium Chloride 250 ML 166.67 MG IV ×2 (05:04→17:31)
[2020-05-09 07:26] LABS: Anion Gap 15 (12-20); Blood Urea Nitrogen 66 mg/dL (9-16); Calcium 7.1 mg/dL (8.4-10.2); Carbon Dioxide 20 mmol/L (22-29); Chloride 104 mmol/L (96-108); Creatinine Clr Calc Pharmacy 13.7; Estimated Glomerular Filt Rate 12; Glucose Random 292 mg/dL (60-115); Potassium 4.2 mmol/l (3.3-5.1); Sodium 135 mmol/L (135-145)
[2020-05-09 07:28] LABS: Hematocrit 28.7 % (37-47); Hemoglobin 9.6 g/dl (12.0-16.0); Mean Corpuscular HGB Conc 33.4 g/dl (31.0-35.0); Mean Corpuscular Hemoglobin 31.6 pg (27.0-33.0); Mean Corpuscular Volume 94.4 fL (80-98); Red Blood Count 3.04 X10*6/uL (4.20-5.50); Red Cell Distribution Width 14.6 % (11.0-16.0); White Blood Count 7.5 X10*3/uL (4.8-10.8)
[2020-05-09 07:32] LABS: Platelet Count 72 X10*3/uL (160-400)
[2020-05-09 08:05] LABS: Glucose, Whole Blood 262 mg/dL (60-115)
[2020-05-09] MEDS: Cholecalciferol (Vitamin D3) 25 MCG TABLET 50 MCG PO (08:39)
[2020-05-09] MEDS: dexAMETHasone sod phosphate 4 MG/ML VIAL 6 MG IVPUSH (08:39)
[2020-05-09] MEDS: FLUoxetine HCl Oral Solution 20 MG/5 ML SOLUTION PO (08:39)
[2020-05-09] MEDS: Isosorbide Mononitrate 60 MG TAB.ER.24H PO (08:40)
[2020-05-09] MEDS: Metoprolol Tartrate 25 MG TABLET PO ×2 (08:40→21:35)
[2020-05-09] MEDS: 0.9 % Sodium Chloride Flush 3 ML SYRINGE IVFLUSH ×2 (08:41→17:32)
[2020-05-09] MEDS: Bumetanide 1 MG TABLET 2 MG PO ×2 (08:41→17:33)
[2020-05-09] MEDS: Insulin Lispro 100 UNIT/ML 3 ML VIAL SUBCUT ×4 (08:42→21:34)
[2020-05-09] MEDS: QUEtiapine Fumarate 25 MG TABLET PO ×2 (10:35→21:35)
[2020-05-09 12:03] LABS: Glucose, Whole Blood 231 mg/dL (60-115)
[2020-05-09 16:57] LABS: Glucose, Whole Blood 186 mg/dL (60-115)
--- NOTE | 2020-05-09 17:24 | HO.PM.IMPN ---
Subjective Subjective Date of Service: 05/09/20 Interval History: the patient was seen and evaluated this morning Laying in bed, feels comfortable but still requiring high flow oxygen Denies any fever, chills Reporting shortness of breath with exertion No reported other overnight events. Systemic review: No fever, chills or weakness No chest pain, palpitation Exertional shortness of breath or coughing No abdominal pain, nausea or vomiting No urinary symptoms No any rash or wounds Physical Exam Vital Signs: Vital Signs: Last Vital Signs Temp 97.3 F 05/09/20 16:00 Pulse 76 05/09/20 16:00 Resp 18 05/09/20 16:00 BP 154/64 H 05/09/20 16:00 Pulse Ox 95 05/09/20 16:00 Body Mass Index 33.2 Constitutional : Alert, oriented to self and place, in moderate respiratory distress Neck : Normal inspection, Supple Cardiovascular : RRR, S1 S2, no lower extremity edema Respiratory : In mild respiratory distress,oxygen requirement to high-flow, Decreased bilaterally air entry, bilateral scattered rhonchi, Gastrointestinal: soft, lax, Normal bowel sounds, Non tender Skin : Warm/Dry, No rash, chest wall hematoma decreased in size with compression, no active bleeding noticed Neurological : Alert & oriented to self and place, No focal deficit Objective Data Current Medications Generic Name Dose Route Start Last Admin Trade Name Yosiq PRN Reason Stop Dose Admin Atorvastatin Calcium 40 mg 05/05/20 21:00 05/08/20 20:24 Atorvastatin Calcium 40 Mg Tablet PO 40 mg BEDTIME [facility] Administration Bumetanide 2 mg 05/06/20 17:00 05/09/20 08:41 Bumetanide 1 Mg Tablet PO 2 mg BID@0800,1700 [facility] Administration Protocol Clopidogrel Bisulfate 75 mg 05/05/20 21:00 05/08/20 20:24 Clopidogrel Bisulfate 75 Mg Tablet PO 75 mg BEDTIME [facility] Administration Dexamethasone Sodium Phosphate 6 mg 05/07/20 18:35 05/09/20 08:39 Dexamethasone Sod Phosphate 4 Mg/Ml Vial IVPUSH 6 mg DAILY [facility] Administration Docusate Sodium 100 mg 05/05/20 01:14 Docusate Sodium 100 Mg Capsule PO DAILY PRN Constipation Fluoxetine HCl 20 mg 05/05/20 09:00 05/09/20 08:39 Fluoxetine Hcl Oral Solution 20 Mg/5 Ml Solution PO 20 mg DAILY [facility] Administration Doxycycline Hyclate 100 mg/ 250 mls @ 166.67 mls/hr 05/07/20 17:45 05/09/20 06:35 Sodium Chloride IV Infused Q12H [facility] Infusion Insulin Glargine 8 unit 05/07/20 21:00 05/08/20 20:23 Insulin Glargine,Hum.Rec.Anlog 100 Unit/Ml 10 Ml Vial SUBCUT 8 unit BEDTIME [facility] Administration Insulin Human Lispro 0 unit 05/05/20 11:30 05/09/20 12:52 Insulin Lispro 100 Unit/Ml 3 Ml Vial SUBCUT 4 unit QIDACHS [facility] Administration Protocol Isosorbide Mononitrate 60 mg 05/05/20 09:00 05/09/20 08:40 Isosorbide Mononitrate 60 Mg Tab.Er.24h PO 60 mg DAILY [facility] Administration Protocol Lorazepam 0.5 mg 05/05/20 01:14 05/08/20 20:24 Lorazepam 0.5 Mg Tablet PO 0.5 mg DAILY PRN Administration Agitation Metoprolol Tartrate 25 mg 05/05/20 09:00 05/09/20 08:40 Metoprolol Tartrate 25 Mg Tablet PO 25 mg BID [facility] Administration Protocol Non-Formulary Medication 1 puff 05/05/20 09:00 Umeclidinium-Vilanterol [Anoro Ellipta] INHALE DAILY [facility] Ondansetron HCl 4 mg 05/05/20 01:14 05/08/20 20:24 Ondansetron Hcl 4 Mg/2 Ml Vial IVPUSH 4 mg Q8H PRN Administration Nausea and Vomiting Pharmacy Consult 1 each 05/04/20 13:26 Consult Rx Perform Med Rec MISCELLANE ONCE PRN Consult order Pharmacy Consult 1 each 05/06/20 03:07 Consult Rx Vancomycin Dosing MISCELLANE DAILY PRN Consult order Quetiapine Fumarate 25 mg 05/09/20 21:00 Quetiapine Fumarate 25 Mg Tablet PO BEDTIME [facility] Quetiapine Fumarate 25 mg 05/09/20 09:15 05/09/20 10:35 Quetiapine Fumarate 25 Mg Tablet PO 25 mg DAILY [facility] Administration Sodium Chloride 3 ml 05/05/20 01:14 05/09/20 08:41 0.9 % Sodium Chloride Flush 3 Ml Syringe IVFLUSH 3 ml QSHIFT [facility] Administration Vitamin D 50 mcg 05/05/20 09:00 05/09/20 08:39 Cholecalciferol (Vitamin D3) 25 Mcg Tablet PO 50 mcg DAILY [facility] Administration Labs CBC & Chem 7: 05/09/20 06:26 05/09/20 06:26 Microbiology Microbiology Results: Microbiology 05/07/20 04:01 Blood - Venous Blood Culture - Preliminary Staphylococcus aureus 05/07/20 04:01 Blood - Venous Blood Culture - Preliminary No growth after 48 hours. 05/05/20 05:25 Blood - Venous Blood Culture - Final Staphylococcus aureus 05/05/20 05:25 Blood - Venous Blood Culture - Final Staphylococcus aureus 05/04/20 13:40 Blood - Venous Blood Culture - Final Staphylococcus aureus 05/04/20 13:36 Blood - Venous Blood Culture - Final Staphylococcus aureus Assessment and Plan (1) Respiratory failure with hypoxia: Status: Acute (2) COPD exacerbation: Status: Acute (3) Pneumonia due to COVID-19 virus: Status: Acute (4) Acute exacerbation of CHF (congestive heart failure): Status: Acute (5) Acute hyperglycemia: Status: Acute (6) Diastolic dysfunction: Status: Acute (7) Diabetes: Status: Acute Assessment and Plan: 69-year-old female with past medical history of COPD as well as CHF who presents to the hospital with acute hypoxic respiratory failure. Patient was also recently diagnosed with COVID-19 on 04/24 Acute on chronic hypoxic respiratory failure secondary to COVID-19 pneumonia , CHF and ESRD with fluid overload Tested positive COVID-19 on 04/24 Improving slowly, still requiring high flow oxygen Continue steroid management Not a candidate for remdesivir Continue O2 supplement and wean down as tolerated Staph aureus bacteremia blood cultures positive for Staph aureus, pansensitive Dialysis catheter removed Discontinue vancomycin Continue doxycycline Plan to discharge on total 4 weeks of IV antibiotics Repeat blood cultures still pending Id to follow Acute inpatient delirium Start Seroquel b.i.d. reorientation Diastolic CHF exacerbation elevated BNP with chest x-ray evidence of pulmonary congestion Continue home does Bumex 2 mg b.i.d. strict I&O, daily weight, low-sodium diet Normal EF echocardiogram ESRD on dialysis Nephrology input appreciated Had 2 sessions of dialysis, will need new dialysis catheter by Monday COPD exacerbation Steroids IV Inhalors Hyperglycemia 2/2 diabetes Start lantus insulin SSI Diabetic diet POC QIDAC CAD continue Metoprolol, Plavix DVT prophylaxis SCDs, documented history of intracranial hemorrhage as well as patient being on Plavix
[2020-05-09] MEDS: LORazepam 0.5 MG TABLET PO (20:32)
[2020-05-09 21:09] LABS: Glucose, Whole Blood 342 mg/dL (60-115)
[2020-05-09] MEDS: Atorvastatin Calcium 40 MG TABLET PO (21:34)
[2020-05-09] MEDS: Clopidogrel Bisulfate 75 MG TABLET PO (21:34)
[2020-05-09] MEDS: Insulin Glargine,Hum.rec.anlog 100 UNIT/ML 10 ML VIAL 8 UNIT SUBCUT (21:34)
[2020-05-10] VITALS (14 sets, daily range): BP systolic 126–151; BP diastolic 58–77; PULSE 61–76; RESP 18–20; TEMP 35.8–36.8; O2SAT 95–97; BMI 33.6
[2020-05-10] MEDS: Haloperidol Lactate 5 MG/ML VIAL 2 MG IVPUSH (00:24)
[2020-05-10] MEDS: 0.9 % Sodium Chloride Flush 3 ML SYRINGE IVFLUSH ×3 (00:30→17:26)
[2020-05-10 02:27] LABS: Strep Pneumo Ag urine Not Detected (Not Detected)
[2020-05-10] MEDS: Doxycycline Hyclate 100 MG in 0.9 % Sodium Chloride 250 ML 166.67 MG IV ×2 (04:44→17:19)
[2020-05-10 07:56] LABS: Anion Gap 16 (12-20); Blood Urea Nitrogen 84 mg/dL (9-16); Calcium 6.8 mg/dL (8.4-10.2); Carbon Dioxide 21 mmol/L (22-29); Chloride 103 mmol/L (96-108); Creatinine Clr Calc Pharmacy 11.6; Estimated Glomerular Filt Rate 10; Glucose Random 182 mg/dL (60-115); Sodium 136 mmol/L (135-145)
[2020-05-10 08:24] LABS: Glucose, Whole Blood 166 mg/dL (60-115)
[2020-05-10] MEDS: Insulin Lispro 100 UNIT/ML 3 ML VIAL SUBCUT ×4 (08:31→22:32)
[2020-05-10] MEDS: Bumetanide 1 MG TABLET 2 MG PO ×2 (08:31→17:18)
[2020-05-10] MEDS: FLUoxetine HCl Oral Solution 20 MG/5 ML SOLUTION PO (09:11)
[2020-05-10] MEDS: Cholecalciferol (Vitamin D3) 25 MCG TABLET 50 MCG PO (09:11)
[2020-05-10] MEDS: Metoprolol Tartrate 25 MG TABLET PO ×2 (09:11→22:31)
[2020-05-10] MEDS: dexAMETHasone sod phosphate 4 MG/ML VIAL 6 MG IVPUSH (09:12)
[2020-05-10] MEDS: QUEtiapine Fumarate 25 MG TABLET PO ×3 (09:12→22:32)
[2020-05-10] MEDS: Isosorbide Mononitrate 60 MG TAB.ER.24H PO (09:12)
[2020-05-10 10:53] LABS: Legionella Ag Urine Not Detected (Not Detected)
[2020-05-10] MEDS: LORazepam 2 MG/ML VIAL 0.5 MG IVPUSH (11:00)
--- NOTE | 2020-05-10 11:56 | PM.PNNEP ---
Subjective Subjective Date of Service: 05/10/20 Interval history: Events noted Physical Exam Vital Signs: Vital Signs: Last Vital Signs Temp 98.3 F 05/10/20 08:18 Pulse 65 05/10/20 09:12 Resp 20 05/10/20 11:37 BP 127/58 L 05/10/20 09:12 Pulse Ox 95 05/10/20 08:18 Body Mass Index 33.6 Const: General: no acute distress HENMT: Head: Yes normocephalic and Yes atraumatic Neck: Neck: Yes supple Resp: Auscultation: diminished lung sounds Cardio: Heart sounds: S1 normal heart sound present and S2 normal heart sound present GI: Palpation (GI): Soft to palpation and nontender Extrem: General: No edema Objective Data Labs CBC & Chem 7: 05/09/20 06:26 05/10/20 06:02 Labs: Laboratory Results - last 24 hr 05/05/20 05/09/20 05/09/20 05:40 11:59 16:54 Sodium Potassium Chloride Carbon Dioxide Anion Gap BUN Creatinine Estim Creat Clear Calc Estimated GFR POC Glucose 231 H 186 H Random Glucose Calcium Ur L.pneumophila Ag Not Detected Ur Strep pneumoniae Ag Not Detected 05/09/20 05/10/20 05/10/20 20:57 06:02 08:20 Sodium 136 Potassium 4.0 Chloride 103 Carbon Dioxide 21 L Anion Gap 16 BUN 84 H* D Creatinine 4.53 H* Estim Creat Clear Calc 11.6 Estimated GFR 10 POC Glucose 342 H 166 H Random Glucose 182 H D Calcium 6.8 L Ur L.pneumophila Ag Ur Strep pneumoniae Ag Microbiology Microbiology Results: Microbiology 05/07/20 04:01 Blood - Venous Blood Culture - Preliminary Staphylococcus aureus 05/07/20 04:01 Blood - Venous Blood Culture - Preliminary No growth after 48 hours. 05/05/20 05:25 Blood - Venous Blood Culture - Final Staphylococcus aureus 05/05/20 05:25 Blood - Venous Blood Culture - Final Staphylococcus aureus 05/04/20 13:40 Blood - Venous Blood Culture - Final Staphylococcus aureus 05/04/20 13:36 Blood - Venous Blood Culture - Final Staphylococcus aureus Assessment & Plan Assessment and plan (1) ESRD (end stage renal disease): Status: Acute (2) Diastolic CHF: Status: Acute (3) COVID-19: Problem details: She has 10 days positive test She would not likely benefit from Dexamethasone or Remdesivir Status: Acute (4) Anemia: Status: Acute (5) Bacteremia: Status: Acute Assessment and Plan: 1. esrd;nl tTS last HD 05/07 2. Line infection form Pcath ?...line removed 3. Anemia REC: Abx as per ID; will need new Pcath..hopefully Monday and will need to ask IR to place Time Spent With Patient Time: Total time spent is greater than 50% in coordination of care (as documented) at patient's floor/unit and/or counseling patient:
[2020-05-10 12:14] LABS: Glucose, Whole Blood 311 mg/dL (60-115)
--- NOTE | 2020-05-10 13:51 | PC.NURSE ---
pt was very restless this AM, pulling at tubing and removing oxygen. She was also unable to eat breakfast, she attempted but spit out food. she tolerated beverages and pudding. Pt has been medicated for agitation and restlessness and is resting quietly.
--- NOTE | 2020-05-10 15:41 | HO.PM.IMPN ---
Subjective Subjective Date of Service: 05/10/20 Interval History: the patient was seen and evaluated this morning Laying in bed, looks comfortable but still requiring high flow oxygen Denies any fever, chills Patient became more anxious and agitated overnight No reported other overnight events. Systemic review: Weakness and increased anxiety No chest pain, palpitation Exertional shortness of breath or coughing No abdominal pain, nausea or vomiting No urinary symptoms No any rash or wounds Physical Exam Vital Signs: Vital Signs: Last Vital Signs Temp 96.4 F L 05/10/20 11:58 Pulse 73 05/10/20 11:58 Resp 20 05/10/20 15:27 BP 126/58 L 05/10/20 11:58 Pulse Ox 97 05/10/20 11:58 Body Mass Index 33.6 Constitutional : Alert, oriented to self and place, in moderate respiratory distress Neck : Normal inspection, Supple Cardiovascular : RRR, S1 S2, no lower extremity edema Respiratory : Severe respiratory distress,oxygen requirement to high-flow, Decreased bilaterally air entry, bilateral scattered rhonchi, Gastrointestinal: soft, lax, Normal bowel sounds, Non tender Skin : Warm/Dry, No rash, chest wall hematoma decreased in size with compression, no active bleeding noticed Neurological : Alert & oriented to self and place, No focal deficit Objective Data Current Medications Generic Name Dose Route Start Last Admin Trade Name Yosiq PRN Reason Stop Dose Admin Atorvastatin Calcium 40 mg 05/05/20 21:00 05/09/20 21:34 Atorvastatin Calcium 40 Mg Tablet PO 40 mg BEDTIME OPAL Administration Bumetanide 2 mg 05/06/20 17:00 05/10/20 08:31 Bumetanide 1 Mg Tablet PO 2 mg BID@0800,1700 OPAL Administration Protocol Clopidogrel Bisulfate 75 mg 05/05/20 21:00 05/09/20 21:34 Clopidogrel Bisulfate 75 Mg Tablet PO 75 mg BEDTIME OPAL Administration Dexamethasone Sodium Phosphate 6 mg 05/07/20 18:35 05/10/20 09:12 Dexamethasone Sod Phosphate 4 Mg/Ml Vial IVPUSH 6 mg DAILY OPAL Administration Docusate Sodium 100 mg 05/05/20 01:14 Docusate Sodium 100 Mg Capsule PO DAILY PRN Constipation Fluoxetine HCl 20 mg 05/05/20 09:00 05/10/20 09:11 Fluoxetine Hcl Oral Solution 20 Mg/5 Ml Solution PO 20 mg DAILY [facility]AL Administration Doxycycline Hyclate 100 mg/ 250 mls @ 166.67 mls/hr 05/07/20 17:45 05/10/20 06:35 Sodium Chloride IV Infused Q12H [facility] Infusion Insulin Glargine 8 unit 05/07/20 21:00 05/09/20 21:34 Insulin Glargine,Hum.Rec.Anlog 100 Unit/Ml 10 Ml Vial SUBCUT 8 unit BEDTIME OPAL Administration Insulin Human Lispro 0 unit 05/05/20 11:30 05/10/20 12:17 Insulin Lispro 100 Unit/Ml 3 Ml Vial SUBCUT 8 unit QIDACHS [facility] Administration Protocol Isosorbide Mononitrate 60 mg 05/05/20 09:00 05/10/20 09:12 Isosorbide Mononitrate 60 Mg Tab.Er.24h PO 60 mg DAILY [facility] Administration Protocol Metoprolol Tartrate 25 mg 05/05/20 09:00 05/10/20 09:11 Metoprolol Tartrate 25 Mg Tablet PO 25 mg BID [facility] Administration Protocol Non-Formulary Medication 1 puff 05/05/20 09:00 Umeclidinium-Vilanterol [Anoro Ellipta] INHALE DAILY [facility] Ondansetron HCl 4 mg 05/05/20 01:14 05/08/20 20:24 Ondansetron Hcl 4 Mg/2 Ml Vial IVPUSH 4 mg Q8H PRN Administration Nausea and Vomiting Pharmacy Consult 1 each 05/04/20 13:26 Consult Rx Perform Med Rec MISCELLANE ONCE PRN Consult order Pharmacy Consult 1 each 05/06/20 03:07 Consult Rx Vancomycin Dosing MISCELLANE DAILY PRN Consult order Quetiapine Fumarate 25 mg 05/09/20 21:00 05/09/20 21:35 Quetiapine Fumarate 25 Mg Tablet PO 25 mg BEDTIME OPAL Administration Quetiapine Fumarate 25 mg 05/09/20 09:15 05/10/20 09:12 Quetiapine Fumarate 25 Mg Tablet PO 25 mg DAILY [facility] Administration Sodium Chloride 3 ml 05/05/20 01:14 05/10/20 08:37 0.9 % Sodium Chloride Flush 3 Ml Syringe IVFLUSH 3 ml QSHIFT [facility] Administration Vitamin D 50 mcg 05/05/20 09:00 05/10/20 09:11 Cholecalciferol (Vitamin D3) 25 Mcg Tablet PO 50 mcg DAILY [facility] Administration Labs CBC & Chem 7: 05/09/20 06:26 05/10/20 06:02 Microbiology Microbiology Results: Microbiology 05/09/20 10:20 Blood - Venous Blood Culture - Preliminary No growth after 24 hours. 05/09/20 10:20 Blood - Venous Blood Culture - Preliminary No growth after 24 hours. 05/07/20 04:01 Blood - Venous Blood Culture - Preliminary Staphylococcus aureus 05/07/20 04:01 Blood - Venous Blood Culture - Preliminary No growth after 48 hours. 05/05/20 05:25 Blood - Venous Blood Culture - Final Staphylococcus aureus 05/05/20 05:25 Blood - Venous Blood Culture - Final Staphylococcus aureus 05/04/20 13:40 Blood - Venous Blood Culture - Final Staphylococcus aureus 05/04/20 13:36 Blood - Venous Blood Culture - Final Staphylococcus aureus Assessment and Plan (1) Respiratory failure with hypoxia: Status: Acute (2) COPD exacerbation: Status: Acute (3) Pneumonia due to COVID-19 virus: Status: Acute (4) Acute exacerbation of CHF (congestive heart failure): Status: Acute (5) Acute hyperglycemia: Status: Acute (6) Diastolic dysfunction: Status: Acute (7) Diabetes: Status: Acute Assessment and Plan: 69-year-old female with past medical history of COPD as well as CHF who presents to the hospital with acute hypoxic respiratory failure. Patient was also recently diagnosed with COVID-19 on 04/24 Acute on chronic hypoxic respiratory failure secondary to COVID-19 pneumonia , CHF and ESRD with fluid overload Tested positive COVID-19 on 04/24 Prognosis is guarded, still requiring high flow oxygen Continue steroid management Not a candidate for remdesivir Continue O2 supplement and wean down as tolerated Staph aureus bacteremia blood cultures positive for Staph aureus, pansensitive Dialysis catheter removed Discontinue vancomycin Continue doxycycline Plan to discharge on total 4 weeks of IV antibiotics Repeat blood cultures still pending Id to follow Acute inpatient delirium Start Seroquel b.i.d. reorientation Diastolic CHF exacerbation elevated BNP with chest x-ray evidence of pulmonary congestion Continue home does Bumex 2 mg b.i.d. strict I&O, daily weight, low-sodium diet Normal EF echocardiogram ESRD on dialysis Nephrology input appreciated Had 2 sessions of dialysis, will need new dialysis catheter by Monday if blood cultures remain negative COPD exacerbation Steroids IV Inhalors Hyperglycemia 2/2 diabetes Start lantus insulin SSI Diabetic diet POC QIDAC CAD continue Metoprolol, Plavix DVT prophylaxis SCDs, documented history of intracranial hemorrhage as well as patient being on Plavix
[2020-05-10 16:30] LABS: Glucose, Whole Blood 270 mg/dL (60-115)
[2020-05-10 20:35] LABS: Glucose, Whole Blood 339 mg/dL (60-115)
[2020-05-10] MEDS: Atorvastatin Calcium 40 MG TABLET PO (22:31)
[2020-05-10] MEDS: Clopidogrel Bisulfate 75 MG TABLET PO (22:31)
[2020-05-10] MEDS: Insulin Glargine,Hum.rec.anlog 100 UNIT/ML 10 ML VIAL 8 UNIT SUBCUT (22:32)
[2020-05-11] VITALS (15 sets, daily range): BP systolic 122–149; BP diastolic 60–71; PULSE 59–82; RESP 18–22; TEMP 36.3–36.6; O2SAT 90–100; BMI 34.4
[2020-05-11] MEDS: 0.9 % Sodium Chloride Flush 3 ML SYRINGE IVFLUSH ×3 (00:57→17:03)
[2020-05-11] MEDS: Doxycycline Hyclate 100 MG in 0.9 % Sodium Chloride 250 ML 166.67 MG IV ×2 (05:44→17:03)
[2020-05-11 07:34] LABS: Anion Gap 20 (12-20); Blood Urea Nitrogen 106 mg/dL (9-16); Calcium 6.1 mg/dL (8.4-10.2); Carbon Dioxide 15 mmol/L (22-29); Chloride 104 mmol/L (96-108); Creatinine Clr Calc Pharmacy 10.4; Estimated Glomerular Filt Rate 8; Glucose Random 87 mg/dL (60-115); Sodium 135 mmol/L (135-145)
[2020-05-11 08:09] LABS: Glucose, Whole Blood 82 mg/dL (60-115)
[2020-05-11] MEDS: dexAMETHasone sod phosphate 4 MG/ML VIAL 6 MG IVPUSH (08:30)
[2020-05-11] MEDS: FLUoxetine HCl Oral Solution 20 MG/5 ML SOLUTION PO (08:30)
[2020-05-11] MEDS: Bumetanide 1 MG TABLET 2 MG PO ×2 (08:30→17:03)
[2020-05-11] MEDS: QUEtiapine Fumarate 25 MG TABLET PO ×2 (08:31→20:44)
[2020-05-11] MEDS: Metoprolol Tartrate 25 MG TABLET PO ×2 (08:31→20:44)
[2020-05-11] MEDS: Isosorbide Mononitrate 60 MG TAB.ER.24H PO (08:31)
[2020-05-11] MEDS: Cholecalciferol (Vitamin D3) 25 MCG TABLET 50 MCG PO (08:31)
--- NOTE | 2020-05-11 11:39 | PM.PNNEP ---
Subjective Subjective Date of Service: 05/11/20 Interval history: seen and examined events reviwed Physical Exam Vital Signs: Vital Signs: Last Vital Signs Temp 97.8 F 05/11/20 08:00 Pulse 67 05/11/20 08:31 Resp 22 H 05/11/20 08:28 BP 136/64 05/11/20 08:31 Pulse Ox 95 05/11/20 08:00 Body Mass Index 34.4 Const: General: no acute distress HENMT: Head: Yes normocephalic and Yes atraumatic Neck: Neck: Yes supple Resp: Auscultation: diminished lung sounds Cardio: Heart sounds: S1 normal heart sound present and S2 normal heart sound present GI: Palpation (GI): Soft to palpation and nontender Extrem: General: Yes edema Objective Data Labs CBC & Chem 7: 05/09/20 06:26 05/11/20 05:22 Labs: Laboratory Results - last 24 hr 05/10/20 05/10/20 05/10/20 12:09 16:14 20:28 Sodium Potassium Chloride Carbon Dioxide Anion Gap BUN Creatinine Estim Creat Clear Calc Estimated GFR POC Glucose 311 H 270 H 339 H Random Glucose Calcium 05/11/20 05/11/20 05:22 08:06 Sodium 135 Potassium 4.0 Chloride 104 Carbon Dioxide 15 L Anion Gap 20 BUN 106 H* D Creatinine 5.10 H* Estim Creat Clear Calc 10.4 Estimated GFR 8 POC Glucose 82 Random Glucose 87 D Calcium 6.1 L D Microbiology Microbiology Results: Microbiology 05/09/20 10:20 Blood - Venous Blood Culture - Preliminary No growth after 24 hours. 05/09/20 10:20 Blood - Venous Blood Culture - Preliminary No growth after 24 hours. 05/07/20 04:01 Blood - Venous Blood Culture - Preliminary Staphylococcus aureus 05/07/20 04:01 Blood - Venous Blood Culture - Preliminary No growth after 48 hours. 05/05/20 05:25 Blood - Venous Blood Culture - Final Staphylococcus aureus 05/05/20 05:25 Blood - Venous Blood Culture - Final Staphylococcus aureus 05/04/20 13:40 Blood - Venous Blood Culture - Final Staphylococcus aureus 05/04/20 13:36 Blood - Venous Blood Culture - Final Staphylococcus aureus Assessment & Plan Assessment and plan (1) ESRD (end stage renal disease): Status: Acute (2) Diastolic CHF: Status: Acute (3) COVID-19: Problem details: She has 10 days positive test She would not likely benefit from Dexamethasone or Remdesivir Status: Acute (4) Anemia: Status: Acute (5) Bacteremia: Status: Acute Assessment and Plan: normally dialyzes t-t-s had last HD last bacteremia concerning for line infection dialysis tunnelled catheter removed last week negative blood culture x 48 hours REC arrange for new dialysis tunnelled catheter HD after placement of new catheter Abx per ID renal diet epogen per protocol phosphate binders Time Spent With Patient Time: Total time spent is greater than 50% in coordination of care (as documented) at patient's floor/unit and/or counseling patient:
[2020-05-11 12:11] LABS: Glucose, Whole Blood 151 mg/dL (60-115)
--- NOTE | 2020-05-11 15:55 | P.PNIM_ITS ---
Subjective Subjective Date of Service: 05/11/20 Interval History: the patient was seen and evaluated this morning Laying in bed, looks comfortable but still requiring high flow oxygen Denies any fever, chills No reported other overnight events. Systemic review: Weakness, and anxiety better controlled No chest pain, palpitation Exertional shortness of breath or coughing No abdominal pain, nausea or vomiting No urinary symptoms No any rash or wounds Physical Exam Vital Signs: Vital Signs: Last Vital Signs Temp 97.5 F 05/11/20 15:30 Pulse 73 05/11/20 15:30 Resp 20 05/11/20 15:42 BP 130/62 05/11/20 15:30 Pulse Ox 94 05/11/20 15:30 Body Mass Index 34.4 Constitutional : Alert, oriented to self and place, in moderate respiratory distress Neck : Normal inspection, Supple Cardiovascular : RRR, S1 S2, no lower extremity edema Respiratory : Severe respiratory distress,oxygen requirement to high-flow, Decr eased bilaterally air entry, bilateral scattered rhonchi, Gastrointestinal: soft, lax, Normal bowel sounds, Non tender Skin : Warm/Dry, No rash, chest wall hematoma decreased in size with compression , no active bleeding noticed Neurological : Alert & oriented to self and place, No focal deficit Objective Data Current Medications Generic Name Dose Route Start Last Admin Trade Name Freq PRN Reason Stop Dose Admin Atorvastatin Calcium 40 mg 05/05/20 21:00 05/10/20 22:31 Atorvastatin Calcium 40 Mg Tablet PO 40 mg BEDTIME OPAL Administration Bumetanide 2 mg 05/06/20 17:00 05/11/20 08:30 Bumetanide 1 Mg Tablet PO 2 mg BID@0800,1700 OPAL Administration Protocol Clopidogrel Bisulfate 75 mg 05/05/20 21:00 05/10/20 22:31 Clopidogrel Bisulfate 75 Mg Tablet PO 75 mg BEDTIME OPAL Administration Dexamethasone Sodium Phosphate 6 mg 05/07/20 18:35 05/11/20 08:30 Dexamethasone Sod Phosphate 4 Mg/Ml Vial IVPUSH 6 mg DAILY [facility] Administration Docusate Sodium 100 mg 05/05/20 01:14 Docusate Sodium 100 Mg Capsule PO DAILY PRN Constipation Fluoxetine HCl 20 mg 05/05/20 09:00 05/11/20 08:30 Fluoxetine Hcl Oral Solution 20 Mg/5 Ml Solution PO 20 mg DAILY [facility] Administration Doxycycline Hyclate 100 mg/ 250 mls @ 166.67 mls/hr 05/07/20 17:45 05/11/20 07:26 Sodium Chloride IV Infused Q12H [facility] Infusion Insulin Glargine 8 unit 05/07/20 21:00 05/10/20 22:32 Insulin Glargine,Hum.Rec.Anlog 100 Unit/Ml 10 Ml Vial SUBCUT 8 unit BEDTIME [facility] Administration Insulin Human Lispro 0 unit 05/05/20 11:30 05/11/20 12:56 Insulin Lispro 100 Unit/Ml 3 Ml Vial SUBCUT Not Given QIDACHS [facility] Protocol Isosorbide Mononitrate 60 mg 05/05/20 09:00 05/11/20 08:31 Isosorbide Mononitrate 60 Mg Tab.Er.24h PO 60 mg DAILY [facility] Administration Protocol Metoprolol Tartrate 25 mg 05/05/20 09:00 05/11/20 08:31 Metoprolol Tartrate 25 Mg Tablet PO 25 mg BID [facility] Administration Protocol Non-Formulary Medication 1 puff 05/05/20 09:00 Umeclidinium-Vilanterol [Anoro Ellipta] INHALE DAILY [facility] Ondansetron HCl 4 mg 05/05/20 01:14 05/08/20 20:24 Ondansetron Hcl 4 Mg/2 Ml Vial IVPUSH 4 mg Q8H PRN Administration Nausea and Vomiting Pharmacy Consult 1 each 05/04/20 13:26 Consult Rx Perform Med Rec MISCELLANE ONCE PRN Consult order Pharmacy Consult 1 each 05/06/20 03:07 Consult Rx Vancomycin Dosing MISCELLANE DAILY PRN Consult order Quetiapine Fumarate 25 mg 05/09/20 21:00 05/10/20 22:32 Quetiapine Fumarate 25 Mg Tablet PO 25 mg BEDTIME [facility] Administration Quetiapine Fumarate 25 mg 05/09/20 09:15 05/11/20 08:31 Quetiapine Fumarate 25 Mg Tablet PO 25 mg DAILY [facility] Administration Sodium Bicarbonate 1,300 mg 05/11/20 21:00 Sodium Bicarbonate 650 Mg Tablet PO TID [facility] Sodium Chloride 3 ml 05/05/20 01:14 05/11/20 08:30 0.9 % Sodium Chloride Flush 3 Ml Syringe IVFLUSH 3 ml QSHIFT [facility] Administration Vitamin D 50 mcg 05/05/20 09:00 05/11/20 08:31 Cholecalciferol (Vitamin D3) 25 Mcg Tablet PO 50 mcg DAILY [facility] Administration Labs CBC & Chem 7: 05/09/20 06:26 05/11/20 05:22 Microbiology Microbiology Results: Microbiology 05/09/20 10:20 Blood - Venous Blood Culture - Preliminary No growth after 48 hours. 05/09/20 10:20 Blood - Venous Blood Culture - Preliminary No growth after 48 hours. 05/07/20 04:01 Blood - Venous Blood Culture - Preliminary Staphylococcus aureus 05/07/20 04:01 Blood - Venous Blood Culture - Preliminary No growth after 48 hours. 05/05/20 05:25 Blood - Venous Blood Culture - Final Staphylococcus aureus 05/05/20 05:25 Blood - Venous Blood Culture - Final Staphylococcus aureus 05/04/20 13:40 Blood - Venous Blood Culture - Final Staphylococcus aureus 05/04/20 13:36 Blood - Venous Blood Culture - Final Staphylococcus aureus Assessment and Plan (1) Respiratory failure with hypoxia: Status: Acute (2) COPD exacerbation: Status: Acute (3) Pneumonia due to COVID-19 virus: Status: Acute (4) Acute exacerbation of CHF (congestive heart failure): Status: Acute (5) Acute hyperglycemia: Status: Acute (6) Diastolic dysfunction: Status: Acute (7) Diabetes: Status: Acute Assessment and Plan: 69-year-old female with past medical history of COPD as well as CHF who presents to the hospital with acute hypoxic respiratory failure. Patient was also recently diagnosed with COVID-19 on 04/24 Acute on chronic hypoxic respiratory failure secondary to COVID-19 pneumonia , CHF and ESRD with fluid overload Tested positive COVID-19 on 04/24 Prognosis is guarded, still requiring high flow oxygen, 45 L now Continue steroid management Not a candidate for remdesivir Continue O2 supplement and wean down as tolerated Staph aureus bacteremia blood cultures positive for Staph aureus, pansensitive Dialysis catheter removed Discontinue vancomycin Repeat blood cultures still pending Continue doxycycline Plan to discharge on total 4 weeks of IV antibiotics Id to follow Acute inpatient delirium Start Seroquel b.i.d. reorientation Diastolic CHF exacerbation elevated BNP with chest x-ray evidence of pulmonary congestion Continue home does Bumex 2 mg b.i.d. strict I&O, daily weight, low-sodium diet Normal EF echocardiogram ESRD on dialysis Nephrology input appreciated Had 2 sessions of dialysis, Plan to place a new dialysis catheter tomorrow noon, dialysis in the afternoon COPD exacerbation On Steroids IV Bronchodilators Inhalors Hyperglycemia 2/2 diabetes Start lantus insulin while on steroids SSI Diabetic diet POC QIDAC CAD continue Metoprolol, Plavix DVT prophylaxis SCDs, documented history of intracranial hemorrhage as well as patient being on Plavix
[2020-05-11 16:04] LABS: Glucose, Whole Blood 219 mg/dL (60-115)
[2020-05-11] MEDS: Insulin Lispro 100 UNIT/ML 3 ML VIAL SUBCUT ×2 (17:03→20:56)
[2020-05-11 20:19] LABS: Glucose, Whole Blood 202 mg/dL (60-115)
[2020-05-11] MEDS: Sodium Bicarbonate 650 MG TABLET 1300 MG PO (20:44)
[2020-05-11] MEDS: Atorvastatin Calcium 40 MG TABLET PO (20:44)
[2020-05-11] MEDS: Insulin Glargine,Hum.rec.anlog 100 UNIT/ML 10 ML VIAL 8 UNIT SUBCUT (20:55)
[2020-05-12] VITALS (11 sets, daily range): BP systolic 130–147; BP diastolic 63–95; PULSE 61–79; RESP 20; TEMP 36.4–37; O2SAT 91–98; BMI 33.9
--- NOTE | 2020-05-12 | IR_ITS ---
EXAMINATION: Dialysis catheter placement CLINICAL INFORMATION: Renal failure. Covid positive. History of recent infected dialysis catheter removal COMPARISON: None TECHNIQUE: Procedure and risks and benefits including bleeding and infection and pneumothorax were discussed with the patient through an cloud physicist by Dr. German yesterday and informed consent was obtained. All elements of maximal sterile barrier technique followed including use of cap, mask, sterile gown, sterile gloves, a sterile full body drape and hand hygiene. Also followed skin preparation with 2% chlorhexidine for cutaneous antisepsis, and sterile ultrasound preparation with sterile gel and probe cover when applicable. The left neck was prepped and draped in the usual sterile fashion. The skin and soft tissues were anesthetized with 1% lidocaine with epinephrine. Using ultrasound guidance and a micropuncture system, access to the left internal jugular vein was obtained. Over an 8 over an 018 wire, a 5 [place] dilator was advanced centrally. A 1 8 wire was exchanged for an 035 guidewire. Following serial dilatation, a 12.5 [place] 20 cm in length temporary dialysis catheter was advanced centrally. Both ports had good blood return, flushed easily and were instilled with 1.4 mL heparin 1000 unit per mL solution. The exam was performed portably. Chest x-ray was subsequently obtained confirming adequate placement. Real-time ultrasound guidance was used to document vein patency and for needle entry. A formal ultrasound picture was recorded. IR/IR us guide venous access IMPRESSION: 12.5 [place] 20 cm in length temporary left internal jugular Mahurkar dialysis catheter placement. EXAMINATION: Chest x-ray CLINICAL INFORMATION: Renal failure. Post portable left internal jugular dialysis catheter placement COMPARISON: None. TECHNIQUE: AP portable chest FINDINGS: The cardiac silhouette is enlarged but stable. There is bilateral multilobar airspace disease that appears unchanged. There is a new left internal jugular dialysis catheter with tip projecting over the caval atrial junction. There is no pleural effusion or pneumothorax. IMPRESSION: Left internal jugular dialysis catheter projects over the cavoatrial junction. No pneumothorax.
[2020-05-12] MEDS: 0.9 % Sodium Chloride Flush 3 ML SYRINGE IVFLUSH ×4 (00:24→20:22)
[2020-05-12] MEDS: Doxycycline Hyclate 100 MG in 0.9 % Sodium Chloride 250 ML 166.67 MG IV ×2 (05:55→20:20)
[2020-05-12 06:50] LABS: Prothrombin Time 11.7 SEC (10.8-13.0)
[2020-05-12 06:59] LABS: Hematocrit 32.6 % (37-47); Hemoglobin 11.1 g/dl (12.0-16.0); Mean Corpuscular Hemoglobin 31.5 pg (27.0-33.0); Mean Corpuscular Volume 92.6 fL (80-98); Platelet Count 108 X10*3/uL (160-400); Red Blood Count 3.52 X10*6/uL (4.20-5.50); Red Cell Distribution Width 15.1 % (11.0-16.0); White Blood Count 15.6 X10*3/uL (4.8-10.8)
[2020-05-12 07:26] LABS: Anion Gap 25 (12-20); Blood Urea Nitrogen 110 mg/dL (9-16); Calcium 5.7 mg/dL (8.4-10.2); Carbon Dioxide 12 mmol/L (22-29); Chloride 102 mmol/L (96-108); Creatinine Clr Calc Pharmacy 9.3; Estimated Glomerular Filt Rate 7; Glucose Random 89 mg/dL (60-115); Potassium 4.7 mmol/l (3.3-5.1); Sodium 134 mmol/L (135-145)
[2020-05-12 07:52] LABS: Glucose, Whole Blood 72 mg/dL (60-115)
[2020-05-12] MEDS: Isosorbide Mononitrate 60 MG TAB.ER.24H PO (08:07)
[2020-05-12] MEDS: FLUoxetine HCl Oral Solution 20 MG/5 ML SOLUTION PO (08:07)
[2020-05-12] MEDS: Bumetanide 1 MG TABLET 2 MG PO ×2 (08:07→20:21)
[2020-05-12] MEDS: Cholecalciferol (Vitamin D3) 25 MCG TABLET 50 MCG PO (08:07)
[2020-05-12] MEDS: QUEtiapine Fumarate 25 MG TABLET PO ×2 (08:08→22:05)
[2020-05-12] MEDS: dexAMETHasone sod phosphate 4 MG/ML VIAL 6 MG IVPUSH (08:08)
[2020-05-12] MEDS: Sodium Bicarbonate 650 MG TABLET 1300 MG PO ×2 (08:08→22:05)
[2020-05-12] MEDS: Metoprolol Tartrate 25 MG TABLET PO ×2 (08:08→22:05)
[2020-05-12 08:19] LABS: Alanine Aminotransferase 76 U/L (0-31); Albumin Level 2.2 g/dL (3.5-5.0); Alkaline Phosphatase 215 U/L (39-117); Aspartate Amino Transferase 57 U/L (5-31); Bilirubin Direct 0.3 mg/dL (0.0-0.5); Bilirubin Total 0.6 mg/dL (0.0-1.0); Total Protein 5.8 g/dL (6.5-8.0)
[2020-05-12] MEDS: Calcium Gluconate/NaCl,Iso-Osm 2 GM/100 ML PLAST..BAG IV (09:00)
[2020-05-12 11:20] LABS: Glucose, Whole Blood 68 mg/dL (60-115)
--- NOTE | 2020-05-12 12:22 | MHC.CLN ---
F/U PT IS CURRENTLY NPO R/T NEW HD CATHETER RECOMMEND 1800DM 2GM NA LOW K+, LOW PHOS DIET WHEN NEEDED WILL START ENSURE BID AND BREANNA TO PROMOTE WOUND HEALING SEE ALSO CLINICAL NUTRITION ASSESSMENT 05/12
--- NOTE | 2020-05-12 13:00 | IR_ITS ---
PROCEDURE: IR INSERTION OF CENTRAL VENOUS CATHETER Dialysis catheter placement CLINICAL INFORMATION: Renal failure. Covid positive. History of recent infected dialysis catheter removal COMPARISON: None TECHNIQUE: Procedure and risks and benefits including bleeding and infection and pneumothorax were discussed with the patient through an credit review analyst by Dr. German yesterday and informed consent was obtained. All elements of maximal sterile barrier technique followed including use of cap, mask, sterile gown, sterile gloves, a sterile full body drape and hand hygiene. Also followed skin preparation with 2% chlorhexidine for cutaneous antisepsis, and sterile ultrasound preparation with sterile gel and probe cover when applicable. The left neck was prepped and draped in the usual sterile fashion. The skin and soft tissues were anesthetized with 1% lidocaine with epinephrine. Using ultrasound guidance and a micropuncture system, access to the left internal jugular vein was obtained. Over an 8 over an 018 wire, a 5 [place] dilator was advanced centrally. A 1 8 wire was exchanged for an 035 guidewire. Following serial dilatation, a 12.5 [place] 20 cm in length temporary dialysis catheter was advanced centrally. Both ports had good blood return, flushed easily and were instilled with 1.4 mL heparin 1000 unit per mL solution. The exam was performed portably. Chest x-ray was subsequently obtained confirming adequate placement. Real-time ultrasound guidance was used to document vein patency and for needle entry. A formal ultrasound picture was recorded. IR/IR cvc insert non tunnel IMPRESSION: 12.5 [place] 20 cm in length temporary left internal jugular Mahurkar dialysis catheter placement. EXAMINATION: Chest x-ray CLINICAL INFORMATION: Renal failure. Post portable left internal jugular dialysis catheter placement COMPARISON: None. TECHNIQUE: AP portable chest FINDINGS: The cardiac silhouette is enlarged but stable. There is bilateral multilobar airspace disease that appears unchanged. There is a new left internal jugular dialysis catheter with tip projecting over the caval atrial junction. There is no pleural effusion or pneumothorax. IMPRESSION: Left internal jugular dialysis catheter projects over the cavoatrial junction. No pneumothorax.
--- NOTE | 2020-05-12 15:02 | PM.PNNEP ---
Subjective Subjective Date of Service: 05/12/20 Interval history: seen and examined confused Physical Exam Vital Signs: Vital Signs: Last Vital Signs Temp 97.6 F 05/12/20 07:29 Pulse 68 05/12/20 08:08 Resp 20 05/12/20 11:48 BP 140/65 H 05/12/20 08:08 Pulse Ox 96 05/12/20 07:29 Body Mass Index 33.9 Const: General: no acute distress HENMT: Head: Yes normocephalic and Yes atraumatic Neck: Neck: Yes supple Resp: Auscultation: diminished lung sounds Cardio: Heart sounds: S1 normal heart sound present and S2 normal heart sound present GI: Palpation (GI): Soft to palpation and nontender Extrem: General: Yes edema Objective Data Labs CBC & Chem 7: 05/12/20 05:39 05/12/20 05:39 Labs: Laboratory Results - last 24 hr 05/11/20 05/11/20 05/12/20 15:52 20:15 05:39 WBC 15.6 H RBC 3.52 L Hgb 11.1 L Hct 32.6 L MCV 92.6 MCH 31.5 MCHC 34.0 RDW 15.1 Plt Count 108 L D MPV Not Reportable Absolute Nucleated RBC 0.000 Nucleated RBC % (auto) 0.0 PT INR Sodium Potassium Chloride Carbon Dioxide Anion Gap BUN Creatinine Estim Creat Clear Calc Estimated GFR POC Glucose 219 H 202 H Random Glucose Calcium Total Bilirubin Direct Bilirubin AST ALT Alkaline Phosphatase Total Protein Albumin 05/12/20 05/12/20 05/12/20 05:39 05:39 07:31 WBC RBC Hgb Hct MCV MCH MCHC RDW Plt Count MPV Absolute Nucleated RBC Nucleated RBC % (auto) PT 11.7 INR 1.0 Sodium 134 L Potassium 4.7 Chloride 102 Carbon Dioxide 12 L Anion Gap 25 H BUN 110 H* Creatinine 5.68 H* Estim Creat Clear Calc 9.3 Estimated GFR 7 POC Glucose 72 Random Glucose 89 Calcium 5.7 L* D Total Bilirubin 0.6 Direct Bilirubin 0.3 AST 57 H ALT 76 H Alkaline Phosphatase 215 H D Total Protein 5.8 L Albumin 2.2 L 05/12/20 11:16 WBC RBC Hgb Hct MCV MCH MCHC RDW Plt Count MPV Absolute Nucleated RBC Nucleated RBC % (auto) PT INR Sodium Potassium Chloride Carbon Dioxide Anion Gap BUN Creatinine Estim Creat Clear Calc Estimated GFR POC Glucose 68 Random Glucose Calcium Total Bilirubin Direct Bilirubin AST ALT Alkaline Phosphatase Total Protein Albumin Microbiology Microbiology Results: Microbiology 05/07/20 04:01 Blood - Venous Blood Culture - Final Staphylococcus aureus 05/07/20 04:01 Blood - Venous Blood Culture - Final No growth after 5 days. 05/09/20 10:20 Blood - Venous Blood Culture - Preliminary No growth after 48 hours. 05/09/20 10:20 Blood - Venous Blood Culture - Preliminary No growth after 48 hours. 05/05/20 05:25 Blood - Venous Blood Culture - Final Staphylococcus aureus 05/05/20 05:25 Blood - Venous Blood Culture - Final Staphylococcus aureus 05/04/20 13:40 Blood - Venous Blood Culture - Final Staphylococcus aureus 05/04/20 13:36 Blood - Venous Blood Culture - Final Staphylococcus aureus Assessment & Plan Assessment and plan (1) ESRD (end stage renal disease): Status: Acute (2) Diastolic CHF: Status: Acute (3) COVID-19: Problem details: She has 10 days positive test She would not likely benefit from Dexamethasone or Remdesivir Status: Acute (4) Anemia: Status: Acute (5) Bacteremia: Status: Acute Assessment and Plan: normally dialyzes t-t-s had last HD last bacteremia concerning for line infection dialysis tunnelled catheter removed last week negative blood culture x 48 hours REC temporary dialysis catheter placement HD after placement of new catheter today Abx per ID renal diet epogen per protocol phosphate binders Time Spent With Patient Time: Total time spent is greater than 50% in coordination of care (as documented) at patient's floor/unit and/or counseling patient:
--- NOTE | 2020-05-12 15:20 | HO.RADPN ---
RADIOLOGY Narrative Narrative: Left IJ 12 Fr 20 cm in length Mahurkar dialysis catheter placed portable. CXR pending.
[2020-05-12] MEDS: Lidocaine HCl 1 % MPF 5 ML VIAL 10 ML SUBCUT (15:21)
[2020-05-12] MEDS: ondansetron HCL 4 MG/2 ML VIAL IVPUSH (16:17)
[2020-05-12 17:09] LABS: Glucose, Whole Blood 115 mg/dL (60-115)
--- NOTE | 2020-05-12 17:09 | P.PNIM_ITS ---
Subjective Subjective Date of Service: 05/12/20 Interval History: the patient was seen and evaluated this morning Laying in bed, looks comfortable but still requiring high flow oxygen Denies any fever, chills No reported other overnight events. Systemic review: Weakness, and anxiety better controlled No chest pain, palpitation Exertional shortness of breath or coughing No abdominal pain, nausea or vomiting No urinary symptoms No any rash or wounds Physical Exam Vital Signs: Vital Signs: Last Vital Signs Temp 97.6 F 05/12/20 07:29 Pulse 68 05/12/20 08:08 Resp 20 05/12/20 11:48 BP 140/65 H 05/12/20 08:08 Pulse Ox 96 05/12/20 07:29 Body Mass Index 33.9 Constitutional : Alert, oriented to self and place, in moderate respiratory distress Neck : Normal inspection, Supple Cardiovascular : RRR, S1 S2, no lower extremity edema Respiratory : Severe respiratory distress,oxygen requirement to high-flow, Decr eased bilaterally air entry, bilateral scattered rhonchi, Gastrointestinal: soft, lax, Normal bowel sounds, Non tender Skin : Warm/Dry, No rash, chest wall hematoma decreased in size with compression , no active bleeding noticed Neurological : Alert & oriented to self and place, No focal deficit Objective Data Current Medications Generic Name Dose Route Start Last Admin Trade Name Freq PRN Reason Stop Dose Admin Atorvastatin Calcium 40 mg 05/05/20 21:00 05/11/20 20:44 Atorvastatin Calcium 40 Mg Tablet PO 40 mg BEDTIME OPAL Administration Bumetanide 2 mg 05/06/20 17:00 05/12/20 08:07 Bumetanide 1 Mg Tablet PO 2 mg BID@0800,1700 OPAL Administration Protocol Dexamethasone Sodium Phosphate 6 mg 05/07/20 18:35 05/12/20 08:08 Dexamethasone Sod Phosphate 4 Mg/Ml Vial IVPUSH 6 mg DAILY OPAL Administration Docusate Sodium 100 mg 05/05/20 01:14 Docusate Sodium 100 Mg Capsule PO DAILY PRN Constipation Fluoxetine HCl 20 mg 05/05/20 09:00 05/12/20 08:07 Fluoxetine Hcl Oral Solution 20 Mg/5 Ml Solution PO 20 mg DAILY OPAL Administration Doxycycline Hyclate 100 mg/ 250 mls @ 166.67 mls/hr 05/07/20 17:45 05/12/20 07:33 Sodium Chloride IV Infused Q12H OPAL Infusion Insulin Glargine 8 unit 05/07/20 21:00 05/11/20 20:55 Insulin Glargine,Hum.Rec.Anlog 100 Unit/Ml 10 Ml Vial SUBCUT 8 unit BEDTIME OPAL Administration Insulin Human Lispro 0 unit 05/05/20 11:30 05/12/20 11:30 Insulin Lispro 100 Unit/Ml 3 Ml Vial SUBCUT Not Given QIDACHS [facility] Protocol Isosorbide Mononitrate 60 mg 05/05/20 09:00 05/12/20 08:07 Isosorbide Mononitrate 60 Mg Tab.Er.24h PO 60 mg DAILY [facility] Administration Protocol Metoprolol Tartrate 25 mg 05/05/20 09:00 05/12/20 08:08 Metoprolol Tartrate 25 Mg Tablet PO 25 mg BID [facility] Administration Protocol Non-Formulary Medication 1 puff 05/05/20 09:00 Umeclidinium-Vilanterol [Anoro Ellipta] INHALE DAILY [facility] Ondansetron HCl 4 mg 05/05/20 01:14 05/12/20 16:17 Ondansetron Hcl 4 Mg/2 Ml Vial IVPUSH 4 mg Q8H PRN Administration Nausea and Vomiting Pharmacy Consult 1 each 05/04/20 13:26 Consult Rx Perform Med Rec MISCELLANE ONCE PRN Consult order Pharmacy Consult 1 each 05/06/20 03:07 Consult Rx Vancomycin Dosing MISCELLANE DAILY PRN Consult order Quetiapine Fumarate 25 mg 05/09/20 21:00 05/11/20 20:44 Quetiapine Fumarate 25 Mg Tablet PO 25 mg BEDTIME [facility] Administration Quetiapine Fumarate 25 mg 05/09/20 09:15 05/12/20 08:08 Quetiapine Fumarate 25 Mg Tablet PO 25 mg DAILY [facility] Administration Sodium Bicarbonate 1,300 mg 05/11/20 21:00 05/12/20 16:21 Sodium Bicarbonate 650 Mg Tablet PO Not Given TID [facility] Sodium Chloride 3 ml 05/05/20 01:14 05/12/20 16:18 0.9 % Sodium Chloride Flush 3 Ml Syringe IVFLUSH 3 ml QSHIFT [facility] Administration Vitamin D 50 mcg 05/05/20 09:00 05/12/20 08:07 Cholecalciferol (Vitamin D3) 25 Mcg Tablet PO 50 mcg DAILY [facility] Administration Labs CBC & Chem 7: 05/12/20 05:39 05/12/20 05:39 Microbiology Microbiology Results: Microbiology 05/07/20 04:01 Blood - Venous Blood Culture - Final Staphylococcus aureus 05/07/20 04:01 Blood - Venous Blood Culture - Final No growth after 5 days. 05/09/20 10:20 Blood - Venous Blood Culture - Preliminary No growth after 48 hours. 05/09/20 10:20 Blood - Venous Blood Culture - Preliminary No growth after 48 hours. 05/05/20 05:25 Blood - Venous Blood Culture - Final Staphylococcus aureus 05/05/20 05:25 Blood - Venous Blood Culture - Final Staphylococcus aureus 05/04/20 13:40 Blood - Venous Blood Culture - Final Staphylococcus aureus 05/04/20 13:36 Blood - Venous Blood Culture - Final Staphylococcus aureus Assessment and Plan (1) Respiratory failure with hypoxia: Status: Acute (2) COPD exacerbation: Status: Acute (3) Pneumonia due to COVID-19 virus: Status: Acute (4) Acute exacerbation of CHF (congestive heart failure): Status: Acute (5) Acute hyperglycemia: Status: Acute (6) Diastolic dysfunction: Status: Acute (7) Diabetes: Status: Acute Assessment and Plan: 69-year-old female with past medical history of COPD as well as CHF who presents to the hospital with acute hypoxic respiratory failure. Patient was also recently diagnosed with COVID-19 on 04/24 Acute on chronic hypoxic respiratory failure secondary to COVID-19 pneumonia , CHF and ESRD with fluid overload Tested positive COVID-19 on 04/24 Prognosis is guarded, still requiring high flow oxygen, 45-55 L Continue steroid management Not a candidate for remdesivir Continue O2 supplement and wean down as tolerated Staph aureus bacteremia blood cultures positive for Staph aureus, pansensitive Dialysis catheter removed Discontinue vancomycin Repeat blood cultures still pending Continue doxycycline D4 Plan to discharge on total 4 weeks of IV antibiotics Id to follow ESRD on dialysis Nephrology input appreciated Had 2 sessions of dialysis, Temporary dialysis catheter placed, to do dialysis today Acute inpatient delirium Improving Continue Seroquel b.i.d. reorientation Diastolic CHF exacerbation elevated BNP with chest x-ray evidence of pulmonary congestion Continue home does Bumex 2 mg b.i.d. strict I&O, daily weight, low-sodium diet Normal EF echocardiogram COPD exacerbation On Steroids IV Bronchodilators Inhalors Hyperglycemia 2/2 diabetes Start lantus insulin while on steroids SSI Diabetic diet POC QIDAC CAD continue Metoprolol, Plavix DVT prophylaxis SCDs, documented history of intracranial hemorrhage as well as patient being on Plavix
--- NOTE | 2020-05-12 20:04 | PC.NURSE ---
Patient returned from dialysis around 194, 1.2 kilos removed from dialysis. Patient assessed, awake and alert to self and place. Patient repositioned and changed. Vital signs taken and stable, patient on 100% nonrebreather, respiratory at bedside to put patient back on highflow.
[2020-05-12 20:49] LABS: Glucose, Whole Blood 101 mg/dL (60-115)
[2020-05-12] MEDS: Insulin Glargine,Hum.rec.anlog 100 UNIT/ML 10 ML VIAL 8 UNIT SUBCUT (22:04)
[2020-05-12] MEDS: Atorvastatin Calcium 40 MG TABLET PO (22:05)
[2020-05-13] VITALS (16 sets, daily range): BP systolic 103–142; BP diastolic 48–65; PULSE 62–78; RESP 16–22; TEMP 36.2–37; O2SAT 90–100; BMI 34.9
[2020-05-13] MEDS: Doxycycline Hyclate 100 MG in 0.9 % Sodium Chloride 250 ML 166.67 MG IV (05:53)
[2020-05-13 06:54] LABS: Anion Gap 15 (12-20); Blood Urea Nitrogen 64 mg/dL (9-16); Calcium 6.1 mg/dL (8.4-10.2); Carbon Dioxide 25 mmol/L (22-29); Chloride 101 mmol/L (96-108); Estimated Glomerular Filt Rate 14; Glucose Random 48 mg/dL (60-115); Sodium 138 mmol/L (135-145)
[2020-05-13 07:04] LABS: Glucose, Whole Blood 37 mg/dL (60-115)
[2020-05-13 07:22] LABS: Glucose, Whole Blood 58 mg/dL (60-115)
[2020-05-13 08:04] LABS: Glucose, Whole Blood 86 mg/dL (60-115)
[2020-05-13] MEDS: FLUoxetine HCl Oral Solution 20 MG/5 ML SOLUTION PO (11:23)
[2020-05-13] MEDS: Sodium Bicarbonate 650 MG TABLET 1300 MG PO ×3 (11:23→22:01)
[2020-05-13] MEDS: Bumetanide 1 MG TABLET 2 MG PO ×2 (11:23→17:56)
[2020-05-13] MEDS: Cholecalciferol (Vitamin D3) 25 MCG TABLET 50 MCG PO (11:23)
[2020-05-13] MEDS: Isosorbide Mononitrate 60 MG TAB.ER.24H PO (11:23)
[2020-05-13] MEDS: QUEtiapine Fumarate 25 MG TABLET PO ×2 (11:23→22:02)
[2020-05-13] MEDS: Metoprolol Tartrate 25 MG TABLET PO ×2 (11:24→22:02)
[2020-05-13] MEDS: dexAMETHasone sod phosphate 4 MG/ML VIAL 6 MG IVPUSH (11:25)
[2020-05-13] MEDS: 0.9 % Sodium Chloride Flush 3 ML SYRINGE IVFLUSH ×3 (11:27→22:02)
[2020-05-13 11:30] LABS: Glucose, Whole Blood 58 mg/dL (60-115)
--- NOTE | 2020-05-13 11:32 | P.PNNP_ITS ---
Subjective Subjective Date of Service: 05/13/20 Interval history: seen and examined had HD yesterday complains of shortness of breath denies chest pain Physical Exam Vital Signs: Vital Signs: Last Vital Signs Temp 97.5 F 05/13/20 07:59 Pulse 78 05/13/20 11:24 Resp 16 05/13/20 11:26 BP 111/56 L 05/13/20 11:24 Pulse Ox 98 05/13/20 07:59 Body Mass Index 34.9 Const: General: no acute distress HENMT: Head: Yes normocephalic and Yes atraumatic Neck: Neck: Yes supple Resp: Auscultation: diminished lung sounds Cardio: Heart sounds: S1 normal heart sound present and S2 normal heart sound present GI: Palpation (GI): Soft to palpation and nontender Extrem: Right upper extremity: no edema Objective Data Labs CBC & Chem 7: 05/12/20 05:39 05/13/20 05:34 Labs: Laboratory Results - last 24 hr 05/12/20 05/12/20 05/13/20 17:04 20:44 05:34 Sodium 138 Potassium 3.0 L D Chloride 101 Carbon Dioxide 25 Anion Gap 15 BUN 64 H Creatinine 3.34 H Estim Creat Clear Calc 16.0 Estimated GFR 14 POC Glucose 115 101 Random Glucose 48 L* Calcium 6.1 L D 05/13/20 05/13/20 05/13/20 06:59 07:19 07:58 Sodium Potassium Chloride Carbon Dioxide Anion Gap BUN Creatinine Estim Creat Clear Calc Estimated GFR POC Glucose 37 L* 58 L* 86 Random Glucose Calcium 05/13/20 11:16 Sodium Potassium Chloride Carbon Dioxide Anion Gap BUN Creatinine Estim Creat Clear Calc Estimated GFR POC Glucose 58 L* Random Glucose Calcium Microbiology Microbiology Results: Microbiology 05/07/20 04:01 Blood - Venous Blood Culture - Final Staphylococcus aureus 05/07/20 04:01 Blood - Venous Blood Culture - Final No growth after 5 days. 05/09/20 10:20 Blood - Venous Blood Culture - Preliminary No growth after 48 hours. 05/09/20 10:20 Blood - Venous Blood Culture - Preliminary No growth after 48 hours. 05/05/20 05:25 Blood - Venous Blood Culture - Final Staphylococcus aureus 05/05/20 05:25 Blood - Venous Blood Culture - Final Staphylococcus aureus 05/04/20 13:40 Blood - Venous Blood Culture - Final Staphylococcus aureus 05/04/20 13:36 Blood - Venous Blood Culture - Final Staphylococcus aureus Assessment & Plan Assessment and plan (1) ESRD (end stage renal disease): Status: Acute (2) Diastolic CHF: Status: Acute (3) COVID-19: Problem details: She has 10 days positive test She would not likely benefit from Dexamethasone or Remdesivir Status: Acute (4) Anemia: Status: Acute (5) Bacteremia: Status: Acute Assessment and Plan: had HD yesterday via temporary dialysis catheter (placed yesterday) still requiring high flow O2 normally dialyzes t-t-s had last HD last bacteremia concerning for line infection dialysis tunnelled catheter removed last week negative blood culture x 48 hours REC HD tomorrow will eventually need dialysis tunnelled catheter Abx per ID renal diet epogen per protocol phosphate binders Time Spent With Patient Time: Total time spent is greater than 50% in coordination of care (as do cumented) at patient's floor/unit and/or counseling patient:
--- NOTE | 2020-05-13 11:44 | MHC.CM.PN ---
Patient is on IV Doxycycline, IV Decadron for COVID +. Also on high flow O2 at 50 liters with an FIO2 at 55%. Discharge plan is home with resumption of [employer] and family care. Patient will need BLS transport. CM will continue to follow patient for discharge needs.
[2020-05-13 13:03] LABS: Glucose, Whole Blood 102 mg/dL (60-115)
--- NOTE | 2020-05-13 14:05 | P.PNIM_ITS ---
Subjective Subjective Date of Service: 05/13/20 Interval History: the patient was seen and evaluated this morning Laying in bed, looks comfortable but still requiring high flow oxygen Denies any fever, chills No reported other overnight events. Systemic review: Weakness, and anxiety better controlled No chest pain, palpitation Exertional shortness of breath or coughing No abdominal pain, nausea or vomiting No urinary symptoms No any rash or wounds Physical Exam Vital Signs: Vital Signs: Last Vital Signs Temp 97.5 F 05/13/20 07:59 Pulse 71 05/13/20 11:35 Resp 20 05/13/20 11:35 BP 137/60 05/13/20 11:35 Pulse Ox 93 05/13/20 11:35 Body Mass Index 34.9 Constitutional : Alert, oriented to self and place, in moderate respiratory distress Neck : Normal inspection, Supple Cardiovascular : RRR, S1 S2, no lower extremity edema Respiratory : Severe respiratory distress,oxygen requirement to high-flow, Decr eased bilaterally air entry, bilateral scattered rhonchi, Gastrointestinal: soft, lax, Normal bowel sounds, Non tender Skin : Warm/Dry, No rash, chest wall hematoma decreased in size with compression , no active bleeding noticed Neurological : Alert & oriented to self and place, No focal deficit Objective Data Current Medications Generic Name Dose Route Start Last Admin Trade Name Freq PRN Reason Stop Dose Admin Atorvastatin Calcium 40 mg 05/05/20 21:00 05/12/20 22:05 Atorvastatin Calcium 40 Mg Tablet PO 40 mg BEDTIME OPAL Administration Bumetanide 2 mg 05/06/20 17:00 05/13/20 11:23 Bumetanide 1 Mg Tablet PO 2 mg BID@0800,1700 OPAL Administration Protocol Dexamethasone Sodium Phosphate 6 mg 05/07/20 18:35 05/13/20 11:25 Dexamethasone Sod Phosphate 4 Mg/Ml Vial IVPUSH 6 mg DAILY OPAL Administration Docusate Sodium 100 mg 05/05/20 01:14 Docusate Sodium 100 Mg Capsule PO DAILY PRN Constipation Fluoxetine HCl 20 mg 05/05/20 09:00 05/13/20 11:23 Fluoxetine Hcl Oral Solution 20 Mg/5 Ml Solution PO 20 mg DAILY OPAL Administration Doxycycline Hyclate 100 mg/ 250 mls @ 166.67 mls/hr 05/07/20 17:45 05/13/20 12:30 Sodium Chloride IV Infused Q12H OPAL Infusion Insulin Human Lispro 0 unit 05/05/20 11:30 05/13/20 13:00 Insulin Lispro 100 Unit/Ml 3 Ml Vial SUBCUT Not Given QIDACHS [facility] Protocol Isosorbide Mononitrate 60 mg 05/05/20 09:00 05/13/20 11:23 Isosorbide Mononitrate 60 Mg Tab.Er.24h PO 60 mg DAILY [facility] Administration Protocol Metoprolol Tartrate 25 mg 05/05/20 09:00 05/13/20 11:24 Metoprolol Tartrate 25 Mg Tablet PO 25 mg BID [facility] Administration Protocol Non-Formulary Medication 1 puff 05/05/20 09:00 Umeclidinium-Vilanterol [Anoro Ellipta] INHALE DAILY [facility] Ondansetron HCl 4 mg 05/05/20 01:14 05/12/20 16:17 Ondansetron Hcl 4 Mg/2 Ml Vial IVPUSH 4 mg Q8H PRN Administration Nausea and Vomiting Pharmacy Consult 1 each 05/04/20 13:26 Consult Rx Perform Med Rec MISCELLANE ONCE PRN Consult order Quetiapine Fumarate 25 mg 05/09/20 21:00 05/12/20 22:05 Quetiapine Fumarate 25 Mg Tablet PO 25 mg BEDTIME [facility] Administration Quetiapine Fumarate 25 mg 05/09/20 09:15 05/13/20 11:23 Quetiapine Fumarate 25 Mg Tablet PO 25 mg DAILY [facility] Administration Sodium Bicarbonate 1,300 mg 05/11/20 21:00 05/13/20 11:23 Sodium Bicarbonate 650 Mg Tablet PO 1,300 mg TID [facility] Administration Sodium Chloride 3 ml 05/05/20 01:14 05/13/20 11:27 0.9 % Sodium Chloride Flush 3 Ml Syringe IVFLUSH 3 ml QSHIFT [facility] Administration Vitamin D 50 mcg 05/05/20 09:00 05/13/20 11:23 Cholecalciferol (Vitamin D3) 25 Mcg Tablet PO 50 mcg DAILY [facility] Administration Labs CBC & Chem 7: 05/12/20 05:39 05/13/20 05:34 Microbiology Microbiology Results: Microbiology 05/07/20 04:01 Blood - Venous Blood Culture - Final Staphylococcus aureus 05/07/20 04:01 Blood - Venous Blood Culture - Final No growth after 5 days. 05/09/20 10:20 Blood - Venous Blood Culture - Preliminary No growth after 48 hours. 05/09/20 10:20 Blood - Venous Blood Culture - Preliminary No growth after 48 hours. 05/05/20 05:25 Blood - Venous Blood Culture - Final Staphylococcus aureus 05/05/20 05:25 Blood - Venous Blood Culture - Final Staphylococcus aureus 05/04/20 13:40 Blood - Venous Blood Culture - Final Staphylococcus aureus 05/04/20 13:36 Blood - Venous Blood Culture - Final Staphylococcus aureus Assessment and Plan (1) Respiratory failure with hypoxia: Status: Acute (2) COPD exacerbation: Status: Acute (3) Pneumonia due to COVID-19 virus: Status: Acute (4) Acute exacerbation of CHF (congestive heart failure): Status: Acute (5) Acute hyperglycemia: Status: Acute (6) Diastolic dysfunction: Status: Acute (7) Diabetes: Status: Acute Assessment and Plan: 69-year-old female with past medical history of COPD as well as CHF who presents to the hospital with acute hypoxic respiratory failure. Patient was also recently diagnosed with COVID-19 on 04/24 Acute on chronic hypoxic respiratory failure secondary to COVID-19 pneumonia , CHF and ESRD with fluid overload Tested positive COVID-19 on 04/24 Prognosis is guarded, still requiring high flow oxygen, 45-55 L Continue steroid management D8 Not a candidate for remdesivir Continue O2 supplement and wean down as tolerated Staph aureus bacteremia blood cultures positive for Staph aureus, pansensitive Dialysis catheter removed Discontinue vancomycin Repeat blood cultures still pending Continue doxycycline D5/28 Plan to discharge on total 4 weeks of IV antibiotics Id to follow ESRD on dialysis Nephrology input appreciated Had 2 sessions of dialysis, Temporary dialysis catheter placed, to do dialysis today Hypoglycemia event diabetes Mellitus Glucose level dropped to 50s this morning requiring oral supplement Discontinue lantus / was started while on steroids SSI Diabetic diet POC QIDAC Acute inpatient delirium Improving Continue Seroquel b.i.d. reorientation Diastolic CHF exacerbation elevated BNP with chest x-ray evidence of pulmonary congestion Continue home does Bumex 2 mg b.i.d. strict I&O, daily weight, low-sodium diet Normal EF echocardiogram COPD exacerbation On Steroids IV Bronchodilators Inhalors CAD continue Metoprolol, Plavix DVT prophylaxis SCDs, documented history of intracranial hemorrhage as well as patient being on Plavix
[2020-05-13 16:49] LABS: Glucose, Whole Blood 122 mg/dL (60-115)
[2020-05-13] MEDS: Doxycycline Hyclate 100 MG in 0.9 % Sodium Chloride 250 ML 167 MG IV (17:56)
[2020-05-13 21:40] LABS: Glucose, Whole Blood 147 mg/dL (60-115)
[2020-05-13] MEDS: Atorvastatin Calcium 40 MG TABLET PO (22:02)
[2020-05-14] VITALS (11 sets, daily range): BP systolic 121–145; BP diastolic 52–67; PULSE 65–82; RESP 18–20; TEMP 36.4–36.8; O2SAT 89–98; BMI 34.6
[2020-05-14] MEDS: Doxycycline Hyclate 100 MG in 0.9 % Sodium Chloride 250 ML 166.67 MG IV (05:22)
[2020-05-14 07:16] LABS: Anion Gap 17 (12-20); Blood Urea Nitrogen 82 mg/dL (9-16); Calcium 5.8 mg/dL (8.4-10.2); Carbon Dioxide 25 mmol/L (22-29); Chloride 101 mmol/L (96-108); Creatinine Clr Calc Pharmacy 12.5; Estimated Glomerular Filt Rate 10; Glucose Random 92 mg/dL (60-115); Potassium 3.6 mmol/l (3.3-5.1); Sodium 139 mmol/L (135-145)
[2020-05-14 08:38] LABS: Glucose, Whole Blood 69 mg/dL (60-115)
--- NOTE | 2020-05-14 11:58 | W.PM.DNNEP ---
Subjective Subjective This patient was seen during dialysis. Interval history: Events noted Physical Exam Vital Signs: Vital Signs: Last Vital Signs Temp 97.7 F 05/14/20 08:00 Pulse 66 05/14/20 08:00 Resp 18 05/14/20 08:00 BP 125/60 05/14/20 08:00 Pulse Ox 91 L 05/14/20 08:00 Body Mass Index 34.6 Const: General: cooperative Neck: Neck: Yes supple Resp: Auscultation: rhonchi GI: Palpation (GI): Soft to palpation Neuro: Motor exam (neuro): No Asterixis during motor activity present Assessment & Plan Assessment and plan (1) COVID-19: Status: Acute (2) ESRD (end stage renal disease): Problem details: HD TTS No Overt s/s of uremia Joel catheter placed on 05/12/2020 Status: Acute Time Spent With Patient Time: Total time spent is greater than 50% in coordination of care (as documented) at patient's floor/unit and/or counseling patient:
--- NOTE | 2020-05-14 12:15 | MHC.CLN ---
F/U PO INTAKE REMAINS 25-50% RECOMMEND 1800DM 2GM NA LOW K+, LOW PHOS DIET PER RENAL R/T ESRD WILL RE-START ENSURE BID AND BREANNA TO PROMOTE WOUND HEALING FOLLOWING
[2020-05-14] MEDS: Sodium Bicarbonate 650 MG TABLET 1300 MG PO ×3 (13:13→20:39)
[2020-05-14] MEDS: FLUoxetine HCl Oral Solution 20 MG/5 ML SOLUTION PO (13:13)
[2020-05-14] MEDS: Isosorbide Mononitrate 60 MG TAB.ER.24H PO (13:13)
[2020-05-14] MEDS: Cholecalciferol (Vitamin D3) 25 MCG TABLET 50 MCG PO (13:15)
[2020-05-14] MEDS: 0.9 % Sodium Chloride Flush 3 ML SYRINGE IVFLUSH ×3 (13:16→20:40)
[2020-05-14] MEDS: QUEtiapine Fumarate 25 MG TABLET PO ×2 (13:16→20:40)
[2020-05-14] MEDS: Metoprolol Tartrate 25 MG TABLET PO ×2 (13:19→20:40)
[2020-05-14] MEDS: vancomycin HCL 750 MG in 0.9 % Sodium Chloride 250 ML 265 MG IV (13:20)
[2020-05-14] MEDS: dexAMETHasone sod phosphate 4 MG/ML VIAL 6 MG IVPUSH (13:20)
[2020-05-14 16:15] LABS: Glucose, Whole Blood 122 mg/dL (60-115)
--- NOTE | 2020-05-14 16:22 | P.PNIM_ITS ---
Subjective Subjective Date of Service: 05/14/20 Interval History: seen and examined no new complaints tolerated dialysis Physical Exam Vital Signs: Vital Signs: Last Vital Signs Temp 97.8 F 05/14/20 15:43 Pulse 67 05/14/20 15:43 Resp 19 05/14/20 15:43 BP 121/61 05/14/20 15:43 Pulse Ox 94 05/14/20 15:43 Body Mass Index 34.6 Objective Data Current Medications Generic Name Dose Route Start Last Admin Trade Name Palmira PRN Reason Stop Dose Admin Atorvastatin Calcium 40 mg 05/05/20 21:00 05/13/20 22:02 Atorvastatin Calcium 40 Mg Tablet PO 40 mg BEDTIME [facility] Administration Bumetanide 2 mg 05/06/20 17:00 05/14/20 13:16 Bumetanide 1 Mg Tablet PO Not Given BID@0800,1700 [facility] Protocol Dexamethasone Sodium Phosphate 6 mg 05/07/20 18:35 05/14/20 13:20 Dexamethasone Sod Phosphate 4 Mg/Ml Vial IVPUSH 6 mg DAILY [facility] Administration Docusate Sodium 100 mg 05/05/20 01:14 Docusate Sodium 100 Mg Capsule PO DAILY PRN Constipation Fluoxetine HCl 20 mg 05/05/20 09:00 05/14/20 13:13 Fluoxetine Hcl Oral Solution 20 Mg/5 Ml Solution PO 20 mg DAILY [facility] Administration Vancomycin HCl 750 mg/ Sodium 265 mls @ 265 mls/hr 05/14/20 14:00 05/14/20 16:01 Chloride IV Infused Q48H [facility] Infusion Insulin Human Lispro 0 unit 05/05/20 11:30 05/14/20 13:17 Insulin Lispro 100 Unit/Ml 3 Ml Vial SUBCUT Not Given QIDACHS [facility] Protocol Isosorbide Mononitrate 60 mg 05/05/20 09:00 05/14/20 13:13 Isosorbide Mononitrate 60 Mg Tab.Er.24h PO 60 mg DAILY [facility] Administration Protocol Metoprolol Tartrate 25 mg 05/05/20 09:00 05/14/20 13:19 Metoprolol Tartrate 25 Mg Tablet PO 25 mg BID [facility] Administration Protocol Non-Formulary Medication 1 puff 05/05/20 09:00 Umeclidinium-Vilanterol [Anoro Ellipta] INHALE DAILY [facility] Ondansetron HCl 4 mg 05/05/20 01:14 05/12/20 16:17 Ondansetron Hcl 4 Mg/2 Ml Vial IVPUSH 4 mg Q8H PRN Administration Nausea and Vomiting Pharmacy Consult 1 each 05/04/20 13:26 Consult Rx Perform Med Rec MISCELLANE ONCE PRN Consult order Pharmacy Consult 1 each 05/14/20 11:25 Consult Rx Vancomycin Dosing MISCELLANE DAILY PRN Consult order Quetiapine Fumarate 25 mg 05/09/20 21:00 05/13/20 22:02 Quetiapine Fumarate 25 Mg Tablet PO 25 mg BEDTIME [facility] Administration Quetiapine Fumarate 25 mg 05/09/20 09:15 05/14/20 13:16 Quetiapine Fumarate 25 Mg Tablet PO 25 mg DAILY [facility] Administration Sodium Bicarbonate 1,300 mg 05/11/20 21:00 05/14/20 13:13 Sodium Bicarbonate 650 Mg Tablet PO 1,300 mg TID [facility] Administration Sodium Chloride 3 ml 05/05/20 01:14 05/14/20 13:16 0.9 % Sodium Chloride Flush 3 Ml Syringe IVFLUSH 3 ml QSHIFT [facility] Administration Vitamin D 50 mcg 05/05/20 09:00 05/14/20 13:15 Cholecalciferol (Vitamin D3) 25 Mcg Tablet PO 50 mcg DAILY [facility] Administration Labs CBC & Chem 7: 05/12/20 05:39 05/14/20 05:31 Microbiology Microbiology Results: Microbiology 05/09/20 10:20 Blood - Venous Blood Culture - Final No growth after 5 days. 05/09/20 10:20 Blood - Venous Blood Culture - Final No growth after 5 days. 05/07/20 04:01 Blood - Venous Blood Culture - Final Staphylococcus aureus 05/07/20 04:01 Blood - Venous Blood Culture - Final No growth after 5 days. 05/05/20 05:25 Blood - Venous Blood Culture - Final Staphylococcus aureus 05/05/20 05:25 Blood - Venous Blood Culture - Final Staphylococcus aureus 05/04/20 13:40 Blood - Venous Blood Culture - Final Staphylococcus aureus 05/04/20 13:36 Blood - Venous Blood Culture - Final Staphylococcus aureus Assessment and Plan (1) Bacteremia: Status: Acute Assessment and Plan: 69-year-old female with past medical history of COPD as well as CHF who presents to the hospital with acute hypoxic respiratory failure. Patient was also recently diagnosed with COVID-19 on 04/24 1. Acute on chronic hypoxic respiratory failure secondary to COVID-19 pneumonia , CHF and ESRD with fluid overload Tested positive COVID-19 on 04/24 On HFNC -- wean as tolerated Continue steroid management D9 Not a candidate for remdesivir/plasma given when she tested positive Continue O2 supplement and wean down as tolerated 2. Staph aureus bacteremia dialysis cath removed, now with temp cath repeat blood cx negative 05/09 IV vancomcyin post dialysis ID in put appreciated 3. ESRD on dialysis Nephrology input appreciated Had 2 sessions of dialysis, Temporary dialysis catheter placed, eventual perma-cath 4. Hypoglycemia event, uncontrolled DM no further hypoglycemic episodes lantus stopped, ISS 5. Acute inpatient delirium Improving Continue Seroquel b.i.d. reorientation 6. Diastolic CHF exacerbation elevated BNP with chest x-ray evidence of pulmonary congestion Continue home does Bumex 2 mg b.i.d. strict I&O, daily weight, low-sodium diet Normal EF echocardiogram 7. COPD exacerbation decadron inhalers 8. CAD continue Metoprolol, Plavix DVT prophylaxis SCDs, documented history of intracranial hemorrhage as well as patient being on Plavix
[2020-05-14] MEDS: Bumetanide 1 MG TABLET 2 MG PO (16:52)
[2020-05-14 20:38] LABS: Glucose, Whole Blood 209 mg/dL (60-115)
[2020-05-14] MEDS: Insulin Lispro 100 UNIT/ML 3 ML VIAL SUBCUT (20:40)
[2020-05-14] MEDS: Atorvastatin Calcium 40 MG TABLET PO (20:40)
--- NOTE | 2020-05-14 22:04 | PM.EVENT ---
Event Note Date of Service: 05/14/20 Event Note: patient needs 6 weeks IV Vancomycin,not Doxycycline
--- NOTE | 2020-05-14 22:29 | PC.NURSE ---
Spoke with Paulina, patient's daughter who stated it was okay to speak with Aniket- patient's son. Aniket's phone number is [phone]
[2020-05-15] VITALS (9 sets, daily range): BP systolic 107–175; BP diastolic 48–74; PULSE 65–133; RESP 18–24; TEMP 36.6–37.3; O2SAT 96–100; BMI 33.0
[2020-05-15] MEDS: ondansetron HCL 4 MG/2 ML VIAL IVPUSH ×2 (06:24→20:13)
[2020-05-15 07:48] LABS: Glucose, Whole Blood 86 mg/dL (60-115)
[2020-05-15 07:50] LABS: Hematocrit 29.5 % (37-47); Hemoglobin 9.7 g/dl (12.0-16.0); Mean Corpuscular HGB Conc 32.9 g/dl (31.0-35.0); Mean Corpuscular Hemoglobin 30.9 pg (27.0-33.0); Mean Corpuscular Volume 93.9 fL (80-98); Platelet Count 59 X10*3/uL (160-400); Red Blood Count 3.14 X10*6/uL (4.20-5.50); Red Cell Distribution Width 15.4 % (11.0-16.0)
[2020-05-15] MEDS: Sodium Bicarbonate 650 MG TABLET 1300 MG PO ×3 (07:58→20:15)
[2020-05-15] MEDS: Cholecalciferol (Vitamin D3) 25 MCG TABLET 50 MCG PO (07:58)
[2020-05-15] MEDS: Isosorbide Mononitrate 60 MG TAB.ER.24H PO (07:59)
[2020-05-15] MEDS: Bumetanide 1 MG TABLET 2 MG PO (07:59)
[2020-05-15] MEDS: FLUoxetine HCl Oral Solution 20 MG/5 ML SOLUTION PO (08:00)
[2020-05-15] MEDS: dexAMETHasone sod phosphate 4 MG/ML VIAL 6 MG IVPUSH (08:00)
[2020-05-15] MEDS: Metoprolol Tartrate 25 MG TABLET PO ×2 (08:00→20:16)
[2020-05-15] MEDS: 0.9 % Sodium Chloride Flush 3 ML SYRINGE IVFLUSH ×3 (08:00→20:15)
[2020-05-15] MEDS: QUEtiapine Fumarate 25 MG TABLET PO ×2 (08:01→20:16)
[2020-05-15 08:11] LABS: Anion Gap 14 (12-20); Blood Urea Nitrogen 48 mg/dL (9-16); Carbon Dioxide 29 mmol/L (22-29); Chloride 103 mmol/L (96-108); Creatinine Clr Calc Pharmacy 17.9; Estimated Glomerular Filt Rate 16; Glucose Random 81 mg/dL (60-115); Potassium 3.8 mmol/l (3.3-5.1); Sodium 142 mmol/L (135-145)
[2020-05-15 08:37] LABS: Calcium 6.4 mg/dL (8.4-10.2)
--- NOTE | 2020-05-15 09:46 | HO.PM.IMPN ---
Subjective Subjective Date of Service: 05/15/20 Interval History: seen and examined feeling better less sob and able to take deeper breaths coughing, yellow sputum ROS General - no fevers or chills Cardiovascular - no chest pain Respiratory - +SOB, Cough Abdominal- no abdominal pain, nausea, vomiting, diarrhea Physical Exam Vital Signs: Vital Signs: Last Vital Signs Temp 98.6 F 05/15/20 04:00 Pulse 87 05/15/20 08:00 Resp 20 05/15/20 04:00 BP 129/67 05/15/20 04:00 Pulse Ox 99 05/15/20 04:00 Body Mass Index 33.0 Const: Other: General - no acute distress, appears comfortable Cardiovascular - regular rate and rhythm, S1-S2 Lungs - Dim, no distress Abdomen - soft, nontender, no rebound or guarding Extremities - no edema bilaterally Neuro - awake and alert, no focal deficits Objective Data Current Medications Generic Name Dose Route Start Last Admin Trade Name Freq PRN Reason Stop Dose Admin Atorvastatin Calcium 40 mg 05/05/20 21:00 05/14/20 20:40 Atorvastatin Calcium 40 Mg Tablet PO 40 mg BEDTIME [facility] Administration Bumetanide 2 mg 05/06/20 17:00 05/15/20 07:59 Bumetanide 1 Mg Tablet PO 2 mg BID@0800,1700 [facility] Administration Protocol Dexamethasone Sodium Phosphate 6 mg 05/07/20 18:35 05/15/20 08:00 Dexamethasone Sod Phosphate 4 Mg/Ml Vial IVPUSH 05/16/20 09:01 6 mg DAILY [facility] Administration Docusate Sodium 100 mg 05/05/20 01:14 Docusate Sodium 100 Mg Capsule PO DAILY PRN Constipation Fluoxetine HCl 20 mg 05/05/20 09:00 05/15/20 08:00 Fluoxetine Hcl Oral Solution 20 Mg/5 Ml Solution PO 20 mg DAILY [facility] Administration Vancomycin HCl 750 mg/ Sodium 265 mls @ 265 mls/hr 05/14/20 14:00 05/14/20 16:01 Chloride IV Infused Q48H [facility] Infusion Insulin Human Lispro 0 unit 05/05/20 11:30 05/15/20 07:57 Insulin Lispro 100 Unit/Ml 3 Ml Vial SUBCUT Not Given QIDACHS [facility] Protocol Isosorbide Mononitrate 60 mg 05/05/20 09:00 05/15/20 07:59 Isosorbide Mononitrate 60 Mg Tab.Er.24h PO 60 mg DAILY [facility] Administration Protocol Metoprolol Tartrate 25 mg 05/05/20 09:00 05/15/20 08:00 Metoprolol Tartrate 25 Mg Tablet PO 25 mg BID [facility] Administration Protocol Non-Formulary Medication 1 puff 05/05/20 09:00 Umeclidinium-Vilanterol [Anoro Ellipta] INHALE DAILY [facility] Ondansetron HCl 4 mg 05/05/20 01:14 05/15/20 06:24 Ondansetron Hcl 4 Mg/2 Ml Vial IVPUSH 4 mg Q8H PRN Administration Nausea and Vomiting Pharmacy Consult 1 each 05/04/20 13:26 Consult Rx Perform Med Rec MISCELLANE ONCE PRN Consult order Pharmacy Consult 1 each 05/14/20 11:25 Consult Rx Vancomycin Dosing MISCELLANE DAILY PRN Consult order Quetiapine Fumarate 25 mg 05/09/20 21:00 05/14/20 20:40 Quetiapine Fumarate 25 Mg Tablet PO 25 mg BEDTIME [facility] Administration Quetiapine Fumarate 25 mg 05/09/20 09:15 05/15/20 08:01 Quetiapine Fumarate 25 Mg Tablet PO 25 mg DAILY [facility] Administration Sodium Bicarbonate 1,300 mg 05/11/20 21:00 05/15/20 07:58 Sodium Bicarbonate 650 Mg Tablet PO 1,300 mg TID [facility] Administration Sodium Chloride 3 ml 05/05/20 01:14 05/15/20 08:00 0.9 % Sodium Chloride Flush 3 Ml Syringe IVFLUSH 3 ml QSHIFT [facility] Administration Vitamin D 50 mcg 05/05/20 09:00 05/15/20 07:58 Cholecalciferol (Vitamin D3) 25 Mcg Tablet PO 50 mcg DAILY [facility] Administration Labs CBC & Chem 7: 05/15/20 06:56 05/15/20 07:26 Microbiology Microbiology Results: Microbiology 05/09/20 10:20 Blood - Venous Blood Culture - Final No growth after 5 days. 05/09/20 10:20 Blood - Venous Blood Culture - Final No growth after 5 days. 05/07/20 04:01 Blood - Venous Blood Culture - Final Staphylococcus aureus 05/07/20 04:01 Blood - Venous Blood Culture - Final No growth after 5 days. 05/05/20 05:25 Blood - Venous Blood Culture - Final Staphylococcus aureus 05/05/20 05:25 Blood - Venous Blood Culture - Final Staphylococcus aureus 05/04/20 13:40 Blood - Venous Blood Culture - Final Staphylococcus aureus 05/04/20 13:36 Blood - Venous Blood Culture - Final Staphylococcus aureus Assessment and Plan (1) Bacteremia: Status: Acute Assessment and Plan: 69-year-old female with past medical history of COPD as well as CHF who presents to the hospital with acute hypoxic respiratory failure. Patient was also recently diagnosed with COVID-19 on 04/24 1. Acute on chronic hypoxic respiratory failure secondary to COVID-19 pneumonia , CHF and ESRD with fluid overload Tested positive COVID-19 on 04/24 Tolerating Oxymizer 14L -- wean as tolerated; O2 requiremetns improved significantly post dialysis Continue decadron -- last day 05/16/2019 Not a candidate for remdesivir/plasma given when she tested positive Continue O2 supplement and wean down as tolerated 2. Staph aureus bacteremia dialysis cath removed, now with temp cath repeat blood cx negative 05/09 IV vancomcyin post dialysis ID in put appreciated - vancomcyin 6 weeks 3. ESRD on dialysis Nephrology input appreciated Had 2 sessions of dialysis, Temporary dialysis catheter placed, eventual perma-cath 4. Hypoglycemia event, uncontrolled DM no further hypoglycemic episodes lantus stopped, ISS 5. Acute inpatient delirium Improving Continue Seroquel b.i.d. reorientation 6. Diastolic CHF exacerbation volume status improving with dialysis hold bumex, will d/w nephrology on further use 7. COPD exacerbation decadron inhalers 8. CAD continue Metoprolol, Plavix DVT prophylaxis SCDs, documented history of intracranial hemorrhage as well as patient being on Plavix
[2020-05-15 12:10] LABS: Glucose, Whole Blood 168 mg/dL (60-115)
[2020-05-15] MEDS: Insulin Lispro 100 UNIT/ML 3 ML VIAL SUBCUT ×2 (12:24→20:12)
[2020-05-15 12:58] LABS: CDIFF Ag Negative (Negative); CDIFF Internal ctrl Dots and bkg OK (V); CDiff Toxin Negative (Negative)
--- NOTE | 2020-05-15 15:51 | PM.PNNEP ---
Subjective Subjective Date of Service: 05/15/20 Interval history: Events noted Physical Exam Vital Signs: Vital Signs: Last Vital Signs Temp 98.8 F 05/15/20 12:00 Pulse 75 05/15/20 12:00 Resp 19 05/15/20 12:00 BP 146/74 H 05/15/20 12:00 Pulse Ox 97 05/15/20 12:00 Body Mass Index 33.0 Const: General: cooperative Neck: Neck: Yes supple Resp: Auscultation: rhonchi GI: Palpation (GI): Soft to palpation Neuro: Motor exam (neuro): No Asterixis during motor activity present Objective Data Labs CBC & Chem 7: 05/15/20 06:56 05/15/20 07:26 Labs: Laboratory Results - last 24 hr 05/14/20 05/14/20 05/15/20 16:12 20:35 06:56 WBC 14.0 H RBC 3.14 L Hgb 9.7 L Hct 29.5 L MCV 93.9 MCH 30.9 MCHC 32.9 RDW 15.4 Plt Count 59 L D MPV Not Reportable Absolute Nucleated RBC 0.000 Nucleated RBC % (auto) 0.0 Sodium Potassium Chloride Carbon Dioxide Anion Gap BUN Creatinine Estim Creat Clear Calc Estimated GFR POC Glucose 122 H 209 H Random Glucose Calcium C. difficile Toxin A&B C. difficile Antigen C. difficile Interpret 05/15/20 05/15/20 05/15/20 07:26 07:44 12:00 WBC RBC Hgb Hct MCV MCH MCHC RDW Plt Count MPV Absolute Nucleated RBC Nucleated RBC % (auto) Sodium 142 Potassium 3.8 Chloride 103 Carbon Dioxide 29 Anion Gap 14 BUN 48 H Creatinine 2.90 H Estim Creat Clear Calc 17.9 Estimated GFR 16 POC Glucose 86 Random Glucose 81 Calcium 6.4 L D C. difficile Toxin A&B Negative C. difficile Antigen Negative C. difficile Interpret SEE NOTE 05/15/20 12:05 WBC RBC Hgb Hct MCV MCH MCHC RDW Plt Count MPV Absolute Nucleated RBC Nucleated RBC % (auto) Sodium Potassium Chloride Carbon Dioxide Anion Gap BUN Creatinine Estim Creat Clear Calc Estimated GFR POC Glucose 168 H Random Glucose Calcium C. difficile Toxin A&B C. difficile Antigen C. difficile Interpret Microbiology Microbiology Results: Microbiology 05/09/20 10:20 Blood - Venous Blood Culture - Final No growth after 5 days. 05/09/20 10:20 Blood - Venous Blood Culture - Final No growth after 5 days. 05/07/20 04:01 Blood - Venous Blood Culture - Final Staphylococcus aureus 05/07/20 04:01 Blood - Venous Blood Culture - Final No growth after 5 days. 05/05/20 05:25 Blood - Venous Blood Culture - Final Staphylococcus aureus 05/05/20 05:25 Blood - Venous Blood Culture - Final Staphylococcus aureus 05/04/20 13:40 Blood - Venous Blood Culture - Final Staphylococcus aureus 05/04/20 13:36 Blood - Venous Blood Culture - Final Staphylococcus aureus Assessment & Plan Assessment and plan (1) COVID-19: Status: Acute (2) ESRD (end stage renal disease): Problem details: HD TTS No Overt s/s of uremia Joel catheter placed on 05/12/2020 Status: Acute Time Spent With Patient Time: Total time spent is greater than 50% in coordination of care (as documented) at patient's floor/unit and/or counseling patient:
[2020-05-15 16:16] LABS: Glucose, Whole Blood 150 mg/dL (60-115)
[2020-05-15] MEDS: Loperamide HCl 2 MG CAPSULE PO (16:53)
--- NOTE | 2020-05-15 18:39 | PC.NURSE ---
Patient remains on oximizer. Continues having frequent loose stools. Stool sent for Cdiff. Skin very excoriated. Vitals stable. Will continue to montior.
[2020-05-15 20:12] LABS: Glucose, Whole Blood 171 mg/dL (60-115)
[2020-05-15] MEDS: Atorvastatin Calcium 40 MG TABLET PO (20:16)
[2020-05-16] VITALS (10 sets, daily range): BP systolic 125–151; BP diastolic 60–84; PULSE 60–75; RESP 18–20; TEMP 31.9–36.7; O2SAT 94–100; BMI 33.2
[2020-05-16] MEDS: ondansetron HCL 4 MG/2 ML VIAL IVPUSH ×2 (04:56→20:42)
[2020-05-16 07:42] LABS: Glucose, Whole Blood 80 mg/dL (60-115)
[2020-05-16] MEDS: 0.9 % Sodium Chloride Flush 3 ML SYRINGE IVFLUSH ×3 (08:19→20:42)
[2020-05-16] MEDS: dexAMETHasone sod phosphate 4 MG/ML VIAL 6 MG IVPUSH (08:22)
--- NOTE | 2020-05-16 10:44 | HO.PM.IMPN ---
Subjective Subjective Date of Service: 05/16/20 Interval History: seen and examined no new issues reported ROS General - no fevers or chills Cardiovascular - no chest pain Respiratory - breathing improving Abdominal- no abdominal pain, nausea, vomiting, diarrhea Physical Exam Vital Signs: Vital Signs: Last Vital Signs Temp 98.1 F 05/16/20 04:00 Pulse 65 05/16/20 04:00 Resp 20 05/16/20 04:00 BP 151/62 H 05/16/20 04:00 Pulse Ox 96 05/16/20 04:00 Body Mass Index 33.2 Const: Other: General - no acute distress, appears comfortable Cardiovascular - regular rate and rhythm, S1-S2 Lungs - Dim, no distress Abdomen - soft, nontender, no rebound or guarding Extremities - no edema bilaterally Neuro - awake and alert, no focal deficits Objective Data Current Medications Generic Name Dose Route Start Last Admin Trade Name Freq PRN Reason Stop Dose Admin Atorvastatin Calcium 40 mg 05/05/20 21:00 05/15/20 20:16 Atorvastatin Calcium 40 Mg Tablet PO 40 mg BEDTIME [facility] Administration Docusate Sodium 100 mg 05/05/20 01:14 Docusate Sodium 100 Mg Capsule PO DAILY PRN Constipation Fluoxetine HCl 20 mg 05/05/20 09:00 05/15/20 08:00 Fluoxetine Hcl Oral Solution 20 Mg/5 Ml Solution PO 20 mg DAILY [facility] Administration Vancomycin HCl 750 mg/ Sodium 265 mls @ 265 mls/hr 05/14/20 14:00 05/14/20 16:01 Chloride IV Infused Q48H [facility] Infusion Insulin Human Lispro 0 unit 05/05/20 11:30 05/16/20 08:19 Insulin Lispro 100 Unit/Ml 3 Ml Vial SUBCUT Not Given QIDACHS [facility] Protocol Isosorbide Mononitrate 60 mg 05/05/20 09:00 05/15/20 07:59 Isosorbide Mononitrate 60 Mg Tab.Er.24h PO 60 mg DAILY [facility] Administration Protocol Loperamide HCl 2 mg 05/15/20 13:44 05/15/20 16:53 Loperamide Hcl 2 Mg Capsule PO 2 mg Q6H PRN Administration Diarrhea Metoprolol Tartrate 25 mg 05/05/20 09:00 05/15/20 20:16 Metoprolol Tartrate 25 Mg Tablet PO 25 mg BID [facility] Administration Protocol Ondansetron HCl 4 mg 05/05/20 01:14 05/16/20 04:56 Ondansetron Hcl 4 Mg/2 Ml Vial IVPUSH 4 mg Q8H PRN Administration Nausea and Vomiting Pharmacy Consult 1 each 05/04/20 13:26 Consult Rx Perform Med Rec MISCELLANE ONCE PRN Consult order Pharmacy Consult 1 each 05/14/20 11:25 Consult Rx Vancomycin Dosing MISCELLANE DAILY PRN Consult order Quetiapine Fumarate 25 mg 05/09/20 21:00 05/15/20 20:16 Quetiapine Fumarate 25 Mg Tablet PO 25 mg BEDTIME [facility] Administration Quetiapine Fumarate 25 mg 05/09/20 09:15 05/15/20 08:01 Quetiapine Fumarate 25 Mg Tablet PO 25 mg DAILY [facility] Administration Sodium Bicarbonate 1,300 mg 05/11/20 21:00 05/15/20 20:15 Sodium Bicarbonate 650 Mg Tablet PO 1,300 mg TID [facility] Administration Sodium Chloride 3 ml 05/05/20 01:14 05/16/20 08:19 0.9 % Sodium Chloride Flush 3 Ml Syringe IVFLUSH 3 ml QSHIFT [facility] Administration Vitamin D 50 mcg 05/05/20 09:00 05/15/20 07:58 Cholecalciferol (Vitamin D3) 25 Mcg Tablet PO 50 mcg DAILY [facility] Administration Labs CBC & Chem 7: 05/15/20 06:56 05/15/20 07:26 Microbiology Microbiology Results: Microbiology 05/09/20 10:20 Blood - Venous Blood Culture - Final No growth after 5 days. 05/09/20 10:20 Blood - Venous Blood Culture - Final No growth after 5 days. 05/07/20 04:01 Blood - Venous Blood Culture - Final Staphylococcus aureus 05/07/20 04:01 Blood - Venous Blood Culture - Final No growth after 5 days. 05/05/20 05:25 Blood - Venous Blood Culture - Final Staphylococcus aureus 05/05/20 05:25 Blood - Venous Blood Culture - Final Staphylococcus aureus 05/04/20 13:40 Blood - Venous Blood Culture - Final Staphylococcus aureus 05/04/20 13:36 Blood - Venous Blood Culture - Final Staphylococcus aureus Assessment and Plan (1) Bacteremia: Status: Acute Assessment and Plan: 69-year-old female with past medical history of COPD as well as CHF who presents to the hospital with acute hypoxic respiratory failure. Patient was also recently diagnosed with COVID-19 on 04/24 1. Acute on chronic hypoxic respiratory failure secondary to COVID-19 pneumonia , CHF and ESRD with fluid overload Tested positive COVID-19 on 04/24 Tolerating Oxymizer 14L -- wean as tolerated; O2 requiremetns improved significantly post dialysis Completed Not a candidate for remdesivir/plasma given when she tested positive Continue O2 supplement and wean down as tolerated 2. Staph aureus bacteremia dialysis cath removed, now with temp cath repeat blood cx negative 05/09 IV vancomcyin post dialysis ID in put appreciated - vancomcyin 6 weeks 3. ESRD on dialysis Nephrology input appreciated Temporary dialysis catheter placed, eventual perma-cath 4. Hypoglycemia event, uncontrolled DM no further hypoglycemic episodes lantus stopped, ISS 5. Acute inpatient delirium Improving Continue Seroquel b.i.d. reorientation 6. Diastolic CHF exacerbation volume status improving with dialysis hold bumex, will d/w nephrology on further use 7. COPD exacerbation reoslved, completed steriod course inhalers 8. CAD continue Metoprolol, Plavix DVT prophylaxis SCDs, documented history of intracranial hemorrhage as well as patient being on Plavix
[2020-05-16 11:38] LABS: Vancomycin Random 11.9 mcg/mL (15-20)
[2020-05-16 11:40] LABS: Blood Urea Nitrogen 25 mg/dL (9-16); Calcium 6.9 mg/dL (8.4-10.2); Estimated Glomerular Filt Rate 34; Glucose Random 107 mg/dL (60-115)
[2020-05-16 12:12] LABS: Anion Gap 11 (12-20); Carbon Dioxide 30 mmol/L (22-29); Chloride 102 mmol/L (96-108); Potassium 3.1 mmol/l (3.3-5.1); Sodium 140 mmol/L (135-145)
--- NOTE | 2020-05-16 13:07 | PM.PNNEP ---
Subjective Subjective Date of Service: 05/16/20 Interval history: Eventsnoted Seen during HD Physical Exam Vital Signs: Vital Signs: Last Vital Signs Temp 89.4 F L 05/16/20 12:00 Pulse 73 05/16/20 12:00 Resp 19 05/16/20 12:00 BP 125/65 05/16/20 12:00 Pulse Ox 97 05/16/20 12:00 Body Mass Index 33.2 Const: General: cooperative Neck: Neck: Yes supple Resp: Auscultation: rhonchi GI: Palpation (GI): Soft to palpation Neuro: Motor exam (neuro): No Asterixis during motor activity present Objective Data Labs CBC & Chem 7: 05/15/20 06:56 05/16/20 10:51 Labs: Laboratory Results - last 24 hr 05/15/20 05/15/20 05/16/20 16:04 20:08 07:37 Sodium Potassium Chloride Carbon Dioxide Anion Gap BUN Creatinine Estim Creat Clear Calc Estimated GFR POC Glucose 150 H 171 H 80 Random Glucose Calcium Random Vancomycin 05/16/20 05/16/20 10:51 10:51 Sodium 140 Potassium 3.1 L Chloride 102 Carbon Dioxide 30 H Anion Gap 11 L BUN 25 H Creatinine 1.53 H Estim Creat Clear Calc 34.0 Estimated GFR 34 POC Glucose Random Glucose 107 Calcium 6.9 L D Random Vancomycin 11.9 L Microbiology Microbiology Results: Microbiology 05/09/20 10:20 Blood - Venous Blood Culture - Final No growth after 5 days. 05/09/20 10:20 Blood - Venous Blood Culture - Final No growth after 5 days. 05/07/20 04:01 Blood - Venous Blood Culture - Final Staphylococcus aureus 05/07/20 04:01 Blood - Venous Blood Culture - Final No growth after 5 days. 05/05/20 05:25 Blood - Venous Blood Culture - Final Staphylococcus aureus 05/05/20 05:25 Blood - Venous Blood Culture - Final Staphylococcus aureus 05/04/20 13:40 Blood - Venous Blood Culture - Final Staphylococcus aureus 05/04/20 13:36 Blood - Venous Blood Culture - Final Staphylococcus aureus Assessment & Plan Assessment and plan (1) COVID-19: Status: Acute (2) ESRD (end stage renal disease): Problem details: HD TTS No Overt s/s of uremia Temp catheter placed on 05/12/2020 Will plan for Permcath on Monday Status: Acute Time Spent With Patient Time: Total time spent is greater than 50% in coordination of care (as documented) at patient's floor/unit and/or counseling patient:
[2020-05-16] MEDS: vancomycin HCL 750 MG in 0.9 % Sodium Chloride 250 ML 265 MG IV (13:34)
[2020-05-16] MEDS: Sodium Bicarbonate 650 MG TABLET 1300 MG PO ×2 (13:35→20:43)
[2020-05-16] MEDS: Metoprolol Tartrate 25 MG TABLET PO ×2 (13:35→20:42)
[2020-05-16] MEDS: FLUoxetine HCl Oral Solution 20 MG/5 ML SOLUTION PO (13:35)
[2020-05-16] MEDS: Cholecalciferol (Vitamin D3) 25 MCG TABLET 50 MCG PO (13:36)
[2020-05-16] MEDS: QUEtiapine Fumarate 25 MG TABLET PO ×2 (13:36→20:43)
[2020-05-16] MEDS: Isosorbide Mononitrate 60 MG TAB.ER.24H PO (13:36)
[2020-05-16 15:00] LABS: Glucose, Whole Blood 111 mg/dL (60-115)
[2020-05-16] MEDS: Nystatin Powder 15 GM BOTTLE 1 APPL TOPICAL ×2 (15:58→21:02)
[2020-05-16 16:17] LABS: Glucose, Whole Blood 211 mg/dL (60-115)
[2020-05-16] MEDS: Insulin Lispro 100 UNIT/ML 3 ML VIAL SUBCUT (17:44)
[2020-05-16 20:33] LABS: Glucose, Whole Blood 107 mg/dL (60-115)
[2020-05-16] MEDS: Atorvastatin Calcium 40 MG TABLET PO (20:59)
[2020-05-17] VITALS (8 sets, daily range): BP systolic 100–136; BP diastolic 47–84; PULSE 60–74; RESP 16–20; TEMP 36.4–36.8; O2SAT 95–100; BMI 33.0
[2020-05-17] MEDS: Prochlorperazine Edisylate 10 MG/2 ML VIAL 5 MG IVPUSH (00:35)
[2020-05-17] MEDS: ondansetron HCL 4 MG/2 ML VIAL IVPUSH (06:42)
[2020-05-17 07:34] LABS: Carbon Dioxide 24 mmol/L (22-29); Chloride 103 mmol/L (96-108); Potassium 4.1 mmol/l (3.3-5.1); Sodium 140 mmol/L (135-145)
[2020-05-17 07:35] LABS: Anion Gap 17 (12-20); Blood Urea Nitrogen 39 mg/dL (9-16); Calcium 6.8 mg/dL (8.4-10.2); Creatinine Clr Calc Pharmacy 19.9; Estimated Glomerular Filt Rate 18; Glucose Random 89 mg/dL (60-115)
[2020-05-17 08:11] LABS: Glucose, Whole Blood 90 mg/dL (60-115)
[2020-05-17] MEDS: FLUoxetine HCl Oral Solution 20 MG/5 ML SOLUTION PO (10:04)
[2020-05-17] MEDS: Sodium Bicarbonate 650 MG TABLET 1300 MG PO ×3 (10:04→22:00)
[2020-05-17] MEDS: Cholecalciferol (Vitamin D3) 25 MCG TABLET 50 MCG PO (10:04)
[2020-05-17] MEDS: 0.9 % Sodium Chloride Flush 3 ML SYRINGE IVFLUSH ×2 (10:09→18:01)
[2020-05-17] MEDS: Metoprolol Tartrate 25 MG TABLET PO ×2 (10:09→22:00)
[2020-05-17] MEDS: Isosorbide Mononitrate 60 MG TAB.ER.24H PO (10:09)
[2020-05-17] MEDS: QUEtiapine Fumarate 25 MG TABLET PO ×2 (10:09→22:00)
[2020-05-17] MEDS: Nystatin Powder 15 GM BOTTLE 1 APPL TOPICAL (10:13)
[2020-05-17 12:22] LABS: Glucose, Whole Blood 113 mg/dL (60-115)
--- NOTE | 2020-05-17 14:06 | HO.PM.IMPN ---
Subjective Subjective Date of Service: 05/17/20 Interval History: seen and examined feeling better daily ROS General - no fevers or chills Cardiovascular - no chest pain Respiratory - breathing improving Abdominal- no abdominal pain, nausea, vomiting, diarrhea Physical Exam Vital Signs: Vital Signs: Last Vital Signs Temp 97.6 F 05/17/20 08:00 Pulse 70 05/17/20 10:09 Resp 16 05/17/20 08:00 BP 133/55 L 05/17/20 10:09 Pulse Ox 95 05/17/20 08:00 Body Mass Index 33.0 Const: Other: General - no acute distress, appears comfortable Cardiovascular - regular rate and rhythm, S1-S2 Lungs - Dim, no distress Abdomen - soft, nontender, no rebound or guarding Extremities - no edema bilaterally Neuro - awake and alert, no focal deficits Objective Data Current Medications Generic Name Dose Route Start Last Admin Trade Name Freq PRN Reason Stop Dose Admin Atorvastatin Calcium 40 mg 05/05/20 21:00 05/16/20 20:59 Atorvastatin Calcium 40 Mg Tablet PO 40 mg BEDTIME [facility] Administration Docusate Sodium 100 mg 05/05/20 01:14 Docusate Sodium 100 Mg Capsule PO DAILY PRN Constipation Fluoxetine HCl 20 mg 05/05/20 09:00 05/17/20 10:04 Fluoxetine Hcl Oral Solution 20 Mg/5 Ml Solution PO 20 mg DAILY [facility] Administration Vancomycin HCl 750 mg/ Sodium 265 mls @ 265 mls/hr 05/14/20 14:00 05/16/20 15:55 Chloride IV Infused Q48H [facility] Infusion Insulin Human Lispro 0 unit 05/05/20 11:30 05/17/20 12:59 Insulin Lispro 100 Unit/Ml 3 Ml Vial SUBCUT Not Given QIDACHS [facility] Protocol Isosorbide Mononitrate 60 mg 05/05/20 09:00 05/17/20 10:09 Isosorbide Mononitrate 60 Mg Tab.Er.24h PO 60 mg DAILY [facility] Administration Protocol Loperamide HCl 2 mg 05/15/20 13:44 05/15/20 16:53 Loperamide Hcl 2 Mg Capsule PO 2 mg Q6H PRN Administration Diarrhea Metoprolol Tartrate 25 mg 05/05/20 09:00 05/17/20 10:09 Metoprolol Tartrate 25 Mg Tablet PO 25 mg BID [facility] Administration Protocol Nystatin 1 appl 05/16/20 11:15 05/17/20 10:13 Nystatin Powder 15 Gm Bottle TOPICAL 1 appl BID [facility] Administration Protocol Ondansetron HCl 4 mg 05/05/20 01:14 05/17/20 06:42 Ondansetron Hcl 4 Mg/2 Ml Vial IVPUSH 4 mg Q8H PRN Administration Nausea and Vomiting Pharmacy Consult 1 each 05/04/20 13:26 Consult Rx Perform Med Rec MISCELLANE ONCE PRN Consult order Pharmacy Consult 1 each 05/14/20 11:25 Consult Rx Vancomycin Dosing MISCELLANE DAILY PRN Consult order Quetiapine Fumarate 25 mg 05/09/20 21:00 05/16/20 20:43 Quetiapine Fumarate 25 Mg Tablet PO 25 mg BEDTIME [facility] Administration Quetiapine Fumarate 25 mg 05/09/20 09:15 05/17/20 10:09 Quetiapine Fumarate 25 Mg Tablet PO 25 mg DAILY [facility] Administration Sodium Bicarbonate 1,300 mg 05/11/20 21:00 05/17/20 10:04 Sodium Bicarbonate 650 Mg Tablet PO 1,300 mg TID [facility] Administration Sodium Chloride 3 ml 05/05/20 01:14 05/17/20 10:09 0.9 % Sodium Chloride Flush 3 Ml Syringe IVFLUSH 3 ml QSHIFT [facility] Administration Vitamin D 50 mcg 05/05/20 09:00 05/17/20 10:04 Cholecalciferol (Vitamin D3) 25 Mcg Tablet PO 50 mcg DAILY [facility] Administration Labs CBC & Chem 7: 05/15/20 06:56 05/17/20 06:38 Microbiology Microbiology Results: Microbiology 05/09/20 10:20 Blood - Venous Blood Culture - Final No growth after 5 days. 05/09/20 10:20 Blood - Venous Blood Culture - Final No growth after 5 days. 05/07/20 04:01 Blood - Venous Blood Culture - Final Staphylococcus aureus 05/07/20 04:01 Blood - Venous Blood Culture - Final No growth after 5 days. 05/05/20 05:25 Blood - Venous Blood Culture - Final Staphylococcus aureus 05/05/20 05:25 Blood - Venous Blood Culture - Final Staphylococcus aureus 05/04/20 13:40 Blood - Venous Blood Culture - Final Staphylococcus aureus 05/04/20 13:36 Blood - Venous Blood Culture - Final Staphylococcus aureus Assessment and Plan (1) Bacteremia: Status: Acute Assessment and Plan: 69-year-old female with past medical history of COPD as well as CHF who presents to the hospital with acute hypoxic respiratory failure. Patient was also recently diagnosed with COVID-19 on 04/24 1. Acute on chronic hypoxic respiratory failure secondary to COVID-19 pneumonia , CHF and ESRD with fluid overload Tested positive COVID-19 on 04/24 Tolerating Oxymizer 8L -- wean as tolerated; O2 requiremetns improved significantly post dialysis Completed decadron Not a candidate for remdesivir/plasma given when she tested positive Continue O2 supplement and wean down as tolerated 2. Staph aureus bacteremia dialysis cath removed, now with temp cath repeat blood cx negative 05/09 IV vancomcyin post dialysis ID in put appreciated - vancomcyin 6 weeks plan for permacath tomorrow 3. ESRD on dialysis Nephrology input appreciated Temporary dialysis catheter placed permacath tomorrow 4. Hypoglycemia event, uncontrolled DM no further hypoglycemic episodes lantus stopped, ISS 5. Acute inpatient delirium resolved Continue Seroquel b.i.d. reorientation 6. Diastolic CHF exacerbation volume status improving with dialysis hold bumex, will d/w nephrology on further use 7. COPD exacerbation reoslved, completed steriod course inhalers 8. CAD continue Metoprolol, Plavix DVT prophylaxis SCDs, documented history of intracranial hemorrhage as well as patient being on Plavix
--- NOTE | 2020-05-17 15:26 | PM.PNNEP ---
Subjective Subjective Date of Service: 05/17/20 Interval history: Events noted Physical Exam Vital Signs: Vital Signs: Last Vital Signs Temp 97.6 F 05/17/20 12:00 Pulse 60 05/17/20 12:00 Resp 18 05/17/20 12:00 BP 136/72 05/17/20 12:00 Pulse Ox 96 05/17/20 12:00 Body Mass Index 33.0 Const: General: cooperative Neck: Neck: Yes supple Resp: Auscultation: rhonchi GI: Palpation (GI): Soft to palpation Neuro: Motor exam (neuro): No Asterixis during motor activity present Objective Data Labs CBC & Chem 7: 05/15/20 06:56 05/17/20 06:38 Labs: Laboratory Results - last 24 hr 05/16/20 05/16/20 05/17/20 16:01 20:27 06:38 Sodium 140 Potassium 4.1 D Chloride 103 Carbon Dioxide 24 Anion Gap 17 BUN 39 H D Creatinine 2.61 H Estim Creat Clear Calc 19.9 Estimated GFR 18 POC Glucose 211 H 107 Random Glucose 89 Calcium 6.8 L 05/17/20 05/17/20 08:06 12:08 Sodium Potassium Chloride Carbon Dioxide Anion Gap BUN Creatinine Estim Creat Clear Calc Estimated GFR POC Glucose 90 113 Random Glucose Calcium Microbiology Microbiology Results: Microbiology 05/09/20 10:20 Blood - Venous Blood Culture - Final No growth after 5 days. 05/09/20 10:20 Blood - Venous Blood Culture - Final No growth after 5 days. 05/07/20 04:01 Blood - Venous Blood Culture - Final Staphylococcus aureus 05/07/20 04:01 Blood - Venous Blood Culture - Final No growth after 5 days. 05/05/20 05:25 Blood - Venous Blood Culture - Final Staphylococcus aureus 05/05/20 05:25 Blood - Venous Blood Culture - Final Staphylococcus aureus 05/04/20 13:40 Blood - Venous Blood Culture - Final Staphylococcus aureus 05/04/20 13:36 Blood - Venous Blood Culture - Final Staphylococcus aureus Assessment & Plan Assessment and plan (1) COVID-19: Status: Acute (2) ESRD (end stage renal disease): Problem details: HD TTS No Overt s/s of uremia Temp catheter placed on 05/12/2020 Will plan for Permcath on Monday Status: Acute Time Spent With Patient Time: Total time spent is greater than 50% in coordination of care (as documented) at patient's floor/unit and/or counseling patient:
[2020-05-17 16:19] LABS: Glucose, Whole Blood 117 mg/dL (60-115)
[2020-05-17 20:34] LABS: Glucose, Whole Blood 191 mg/dL (60-115)
[2020-05-17] MEDS: Atorvastatin Calcium 40 MG TABLET PO (22:00)
[2020-05-18] VITALS (7 sets, daily range): BP systolic 107–128; BP diastolic 45–68; PULSE 70–81; RESP 18–22; TEMP 34.8–36.8; O2SAT 93–99; BMI 32.5
[2020-05-18] MEDS: Nystatin Powder 15 GM BOTTLE 1 APPL TOPICAL ×3 (00:54→21:41)
[2020-05-18 00:58] LABS: Glucose, Whole Blood 155 mg/dL (60-115)
[2020-05-18] MEDS: traMADoL HCL 50 MG TABLET PO (02:41)
[2020-05-18 06:47] LABS: Red Cell Distribution Width 15.5 % (11.0-16.0)
[2020-05-18 06:49] LABS: Hematocrit 28.9 % (37-47); Hemoglobin 9.5 g/dl (12.0-16.0); Mean Corpuscular HGB Conc 32.9 g/dl (31.0-35.0); Mean Corpuscular Hemoglobin 31.6 pg (27.0-33.0); PLT CLUMP 1; Red Blood Count 3.01 X10*6/uL (4.20-5.50)
[2020-05-18 06:51] LABS: PLT ABN DIST 1
[2020-05-18 07:11] LABS: Anion Gap 15 (12-20); Blood Urea Nitrogen 56 mg/dL (9-16); Calcium 6.6 mg/dL (8.4-10.2); Carbon Dioxide 26 mmol/L (22-29); Chloride 102 mmol/L (96-108); Creatinine Clr Calc Pharmacy 14.8; Estimated Glomerular Filt Rate 13; Glucose Random 141 mg/dL (60-115); Potassium 4.4 mmol/l (3.3-5.1); Sodium 139 mmol/L (135-145)
[2020-05-18] MEDS: 0.9 % Sodium Chloride Flush 3 ML SYRINGE IVFLUSH ×2 (07:56→16:58)
[2020-05-18 08:05] LABS: White Blood Count 14.1 X10*3/uL (4.8-10.8)
[2020-05-18 08:06] LABS: Platelet Count 51 X10*3/uL (160-400)
--- NOTE | 2020-05-18 08:34 | MHC.CM.PN ---
pt has extensive svcs at home. dc plan is home c prior svcs. action to transport. cm to cont. to follow.
[2020-05-18] MEDS: Cholecalciferol (Vitamin D3) 25 MCG TABLET 50 MCG PO (09:16)
[2020-05-18] MEDS: oxyCODONE HCl Immed Release 5 MG TABLET PO ×2 (09:16→14:30)
[2020-05-18] MEDS: FLUoxetine HCl Oral Solution 20 MG/5 ML SOLUTION PO (09:17)
[2020-05-18] MEDS: Isosorbide Mononitrate 60 MG TAB.ER.24H PO (09:17)
[2020-05-18] MEDS: QUEtiapine Fumarate 25 MG TABLET PO ×2 (09:17→21:40)
[2020-05-18] MEDS: Metoprolol Tartrate 25 MG TABLET PO ×2 (09:18→21:40)
[2020-05-18] MEDS: Sodium Bicarbonate 650 MG TABLET 1300 MG PO ×3 (09:18→21:40)
[2020-05-18 09:27] LABS: Glucose, Whole Blood 127 mg/dL (60-115)
--- NOTE | 2020-05-18 09:58 | MHC.PIE ---
p: poor po intake, held 2 units insulin for poc 191 at hs; i:discussed with md, rechecked poc e: new poc 155, md ok hold insulin. no s/sx hypo/hyperglycemia p: patient reported 10/10 chest pain, sternally, nonradiating, worse with cough, constant, worse with palpation. i: notify md; attempt to obtain iv access; discuss obtaining ekg with e: new order for one time po tramadol; patient is npo, but discussed with md and ok to give pill with small amount of pudding; patient with improved pain on recheck
--- NOTE | 2020-05-18 11:23 | HO.ANESPROP2 ---
[facility] Past Medical History Medical History Bacteremia due to Staphylococcus Constipation COPD (chronic obstructive pulmonary disease) Diabetes Diastolic dysfunction Diverticulitis Dyspnea Social History Social History Household Members: Family Housing: Apartment Alcohol intake: never Smoking Status: Smoker, status unknown Use of substances other than those prescribed or required for medical reasons: Unknown Currently Displaying Signs/Symptoms of Drug Intoxication Withdrawal: No Advance Directives: No Advance Directives Information Provided: No Do you have thoughts of harming others: None Do you have a plan to hurt others: No Plan Recently lost weight without trying: Unsure service: No Current occupational status: disabled Meds Allergies Allergy/AdvReac Type Severity Reaction Status Date / Time Penicillins Allergy Severe Anaphylaxis, Verified 05/13/20 12:33 hives acetaminophen [From TYLENOL] Allergy Unknown Unknown Verified 05/13/20 12:36 aspirin [ASPIRIN] Allergy Unknown rash, Verified 05/13/20 12:33 stomach upset diazepam [From VALIUM] Allergy Unknown RESP Verified 04/24/20 20:22 FAILURE penicillin V Allergy Unknown edema Verified 11/21/19 00:00 metformin [Metformin] AdvReac Mild DIARRHEA Verified 04/24/20 20:22 Home Medications Medication Instructions Recorded Confirmed Type atorvastatin 40 mg PO BEDTIME 04/24/20 05/04/20 History bumetanide 4 mg PO SUTUTHSA@0800,1700 04/24/20 05/04/20 History cholecalciferol (vitamin D3) 50 mcg PO QAM 04/24/20 05/04/20 History clopidogrel 75 mg PO BEDTIME 04/24/20 05/04/20 History fluoxetine 5 ml PO DAILY 04/24/20 05/04/20 History isosorbide mononitrate 60 mg PO QAM 04/24/20 05/04/20 History metoprolol tartrate 25 mg PO BID 04/24/20 05/04/20 History lorazepam 0.5 mg PO DAILY PRN 05/04/20 05/04/20 History quetiapine 25 mg PO BEDTIME PRN 05/04/20 05/04/20 History umeclidinium-vilanterol [Anoro 1 puff INHALATION DAILY 05/04/20 05/04/20 History Ellipta] Exam Height,Weight and Vital Signs: Vital Signs Temp Pulse Resp BP Pulse Ox 05/22/20 13:41 97.6 F 70 20 105/48 L 05/22/20 13:26 97.9 F 79 20 105/45 L 05/22/20 08:00 97.4 F 99 18 110/50 L 90 L 05/22/20 03:57 97.9 F 77 18 108/51 L 94 05/22/20 00:00 98.1 F 89 20 133/63 96 05/21/20 21:26 88 129/58 L 05/21/20 20:01 97.8 F 88 18 129/58 L 92 05/21/20 16:48 97.6 F 77 22 H 104/54 L 97 Pertinent Lab Results Pertinent Lab Results: Short CBC 05/22/20 Range/Units 06:08 WBC 7.3 (4.8-10.8) X10*3/uL Hgb 7.4 L (12.0-16.0) g/dl Hct 23.3 L (37-47) % Plt Count 38 L (160-400) X10*3/uL BMP 05/22/20 06:08 Sodium 139 Potassium 3.8 Chloride 101 Carbon Dioxide 29 BUN 18 H Creatinine 2.43 H Calcium 7.3 L D Airway Mallampati Class: II TM Dist: >3cm Neck ROM: Full Denture: Upper and Lower Heart: RRR Lungs: CTAB Assessment and Plan Assessment Anesthesia Assessment: Anesthesia Plan Discussed and Chart Reviewed Final Anesthetic Review NPO: Yes ASA Class: IV Final Preanesthetic Review: No Changes in Pt Med Stat, Meds/Allgs Chart Reviewed, Consent Obtained/Reviewed and Anes Risks/Benef Reviewed Patient Risk: High Procedure Risk: Intermediate Anesthetic Plan Anesthetic Plan: MAC: Disposition: Inp. Admit - [facility]
[2020-05-18 11:39] LABS: Glucose, Whole Blood 118 mg/dL (60-115)
[2020-05-18 12:38] LABS: Glucose, Whole Blood 115 mg/dL (60-115)
--- NOTE | 2020-05-18 13:55 | MHC.CLN ---
F/U PO INTAKE 50% AVG RECOMMEND 1800DM 2GM NA -APPROPRIATE WILL RE-START ENSURE CLEAR TID AND BREANNA TO PROMOTE WOUND HEALING FOLLOWING
--- NOTE | 2020-05-18 16:17 | PM.PNNEP ---
Subjective Subjective Date of Service: 05/18/20 Interval history: Events noted; All recent data reviewed. Due HD tomorrow Physical Exam Vital Signs: Vital Signs: Last Vital Signs Temp 97.6 F 05/18/20 16:00 Pulse 73 05/18/20 16:00 Resp 18 05/18/20 16:00 BP 119/61 05/18/20 16:00 Pulse Ox 98 05/18/20 16:00 Body Mass Index 32.5 Const: General: cooperative Orientation/consciousness: patient oriented x3 Neck: Neck: Yes supple Resp: Auscultation: diminished lung sounds Cardio: Rhythm: regular rhythm GI: Palpation (GI): Soft to palpation Neuro: General: patient oriented x3 Objective Data Labs CBC & Chem 7: 05/18/20 06:03 05/18/20 06:03 Labs: Laboratory Results - last 24 hr 05/17/20 05/17/20 05/18/20 16:13 20:30 00:40 WBC RBC Hgb Hct MCV MCH MCHC RDW Plt Count MPV Absolute Nucleated RBC Nucleated RBC % (auto) Sodium Potassium Chloride Carbon Dioxide Anion Gap BUN Creatinine Estim Creat Clear Calc Estimated GFR POC Glucose 117 H 191 H 155 H Random Glucose Calcium 05/18/20 05/18/20 05/18/20 06:03 06:03 09:23 WBC 14.1 H RBC 3.01 L Hgb 9.5 L Hct 28.9 L MCV 96.0 MCH 31.6 MCHC 32.9 RDW 15.5 Plt Count 51 L MPV Not Reportable Absolute Nucleated RBC 0.000 Nucleated RBC % (auto) 0.0 Sodium 139 Potassium 4.4 Chloride 102 Carbon Dioxide 26 Anion Gap 15 BUN 56 H Creatinine 3.51 H Estim Creat Clear Calc 14.8 Estimated GFR 13 POC Glucose 127 H Random Glucose 141 H D Calcium 6.6 L 05/18/20 05/18/20 11:29 12:35 WBC RBC Hgb Hct MCV MCH MCHC RDW Plt Count MPV Absolute Nucleated RBC Nucleated RBC % (auto) Sodium Potassium Chloride Carbon Dioxide Anion Gap BUN Creatinine Estim Creat Clear Calc Estimated GFR POC Glucose 118 H 115 Random Glucose Calcium Microbiology Microbiology Results: Microbiology 05/09/20 10:20 Blood - Venous Blood Culture - Final No growth after 5 days. 05/09/20 10:20 Blood - Venous Blood Culture - Final No growth after 5 days. 05/07/20 04:01 Blood - Venous Blood Culture - Final Staphylococcus aureus 05/07/20 04:01 Blood - Venous Blood Culture - Final No growth after 5 days. 05/05/20 05:25 Blood - Venous Blood Culture - Final Staphylococcus aureus 05/05/20 05:25 Blood - Venous Blood Culture - Final Staphylococcus aureus 05/04/20 13:40 Blood - Venous Blood Culture - Final Staphylococcus aureus 05/04/20 13:36 Blood - Venous Blood Culture - Final Staphylococcus aureus Assessment & Plan Assessment and plan (1) ESRD (end stage renal disease): Problem details: Usually gets HD on TTS Temp catheter placed on 05/12/2020 Shall optimize volume status on HD May need extra UF; Permcath when improved clinically Status: Acute Time Spent With Patient Time: Total time spent is greater than 50% in coordination of care (as documented) at patient's floor/unit and/or counseling patient:
[2020-05-18 16:51] LABS: Glucose, Whole Blood 115 mg/dL (60-115)
--- NOTE | 2020-05-18 17:32 | HO.PM.IMPN ---
Subjective Subjective Date of Service: 05/18/20 Interval History: seen and examined no new complaints ROS General - no fevers or chills Cardiovascular - no chest pain Respiratory - breathing improving Abdominal- no abdominal pain, nausea, vomiting, diarrhea Physical Exam Vital Signs: Vital Signs: Last Vital Signs Temp 97.6 F 05/18/20 16:00 Pulse 73 05/18/20 16:00 Resp 18 05/18/20 16:00 BP 119/61 05/18/20 16:00 Pulse Ox 98 05/18/20 16:00 Body Mass Index 32.5 Const: Other: General - no acute distress, appears comfortable Cardiovascular - regular rate and rhythm, S1-S2 Lungs - Dim, no distress Abdomen - soft, nontender, no rebound or guarding Extremities - no edema bilaterally Neuro - awake and alert, no focal deficits Objective Data Current Medications Generic Name Dose Route Start Last Admin Trade Name Freq PRN Reason Stop Dose Admin Atorvastatin Calcium 40 mg 05/05/20 21:00 05/17/20 22:00 Atorvastatin Calcium 40 Mg Tablet PO 40 mg BEDTIME [facility] Administration Docusate Sodium 100 mg 05/05/20 01:14 Docusate Sodium 100 Mg Capsule PO DAILY PRN Constipation Fluoxetine HCl 20 mg 05/05/20 09:00 05/18/20 09:17 Fluoxetine Hcl Oral Solution 20 Mg/5 Ml Solution PO 20 mg DAILY [facility] Administration Vancomycin HCl 750 mg/ Sodium 265 mls @ 265 mls/hr 05/19/20 16:45 Chloride IV [id number]@[id number] [facility] Insulin Human Lispro 0 unit 05/05/20 11:30 05/18/20 16:58 Insulin Lispro 100 Unit/Ml 3 Ml Vial SUBCUT Not Given QIDACHS [facility] Protocol Isosorbide Mononitrate 60 mg 05/05/20 09:00 05/18/20 09:17 Isosorbide Mononitrate 60 Mg Tab.Er.24h PO 60 mg DAILY [facility] Administration Protocol Loperamide HCl 2 mg 05/15/20 13:44 05/15/20 16:53 Loperamide Hcl 2 Mg Capsule PO 2 mg Q6H PRN Administration Diarrhea Metoprolol Tartrate 25 mg 05/05/20 09:00 05/18/20 09:18 Metoprolol Tartrate 25 Mg Tablet PO 25 mg BID [facility] Administration Protocol Nystatin 1 appl 05/16/20 11:15 05/18/20 09:21 Nystatin Powder 15 Gm Bottle TOPICAL 1 appl BID [facility] Administration Protocol Ondansetron HCl 4 mg 05/05/20 01:14 05/17/20 06:42 Ondansetron Hcl 4 Mg/2 Ml Vial IVPUSH 4 mg Q8H PRN Administration Nausea and Vomiting Oxycodone HCl 5 mg 05/18/20 09:10 05/18/20 14:30 Oxycodone Hcl Immed Release 5 Mg Tablet PO 5 mg Q6H PRN Administration Pain, Severe (Pain Scale 7-10) Pharmacy Consult 1 each 05/04/20 13:26 Consult Rx Perform Med Rec MISCELLANE ONCE PRN Consult order Pharmacy Consult 1 each 05/14/20 11:25 Consult Rx Vancomycin Dosing MISCELLANE DAILY PRN Consult order Quetiapine Fumarate 25 mg 05/09/20 21:00 05/17/20 22:00 Quetiapine Fumarate 25 Mg Tablet PO 25 mg BEDTIME [facility] Administration Quetiapine Fumarate 25 mg 05/09/20 09:15 05/18/20 09:17 Quetiapine Fumarate 25 Mg Tablet PO 25 mg DAILY [facility] Administration Sodium Bicarbonate 1,300 mg 05/11/20 21:00 05/18/20 14:30 Sodium Bicarbonate 650 Mg Tablet PO 1,300 mg TID [facility] Administration Sodium Chloride 3 ml 05/05/20 01:14 05/18/20 16:58 0.9 % Sodium Chloride Flush 3 Ml Syringe IVFLUSH 3 ml QSHIFT [facility] Administration Vitamin D 50 mcg 05/05/20 09:00 05/18/20 09:16 Cholecalciferol (Vitamin D3) 25 Mcg Tablet PO 50 mcg DAILY [facility] Administration Labs CBC & Chem 7: 05/18/20 06:03 05/18/20 06:03 Microbiology Microbiology Results: Microbiology 05/09/20 10:20 Blood - Venous Blood Culture - Final No growth after 5 days. 05/09/20 10:20 Blood - Venous Blood Culture - Final No growth after 5 days. 05/07/20 04:01 Blood - Venous Blood Culture - Final Staphylococcus aureus 05/07/20 04:01 Blood - Venous Blood Culture - Final No growth after 5 days. 05/05/20 05:25 Blood - Venous Blood Culture - Final Staphylococcus aureus 05/05/20 05:25 Blood - Venous Blood Culture - Final Staphylococcus aureus 05/04/20 13:40 Blood - Venous Blood Culture - Final Staphylococcus aureus 05/04/20 13:36 Blood - Venous Blood Culture - Final Staphylococcus aureus Assessment and Plan (1) Bacteremia: Status: Acute Assessment and Plan: 69-year-old female with past medical history of COPD as well as CHF who presents to the hospital with acute hypoxic respiratory failure. Patient was also recently diagnosed with COVID-19 on 04/24 1. Acute on chronic hypoxic respiratory failure secondary to COVID-19 pneumonia , CHF and ESRD with fluid overload Tested positive COVID-19 on 04/24 Tolerating Oxymizer 8L -- wean as tolerated; Completed decadron Not a candidate for remdesivir/plasma given when she tested positive Continue O2 supplement and wean down as tolerated 2. Staph aureus bacteremia dialysis cath removed, now with temp cath repeat blood cx negative 05/09 IV vancomcyin post dialysis ID in put appreciated - vancomcyin 6 weeks d/w Dr. Perry from IR today -- reports she would need anesthesia for the procedure; Given O2 requirements, will wait to see if we can wean it a down a bit before putting in the catheter 3. ESRD on dialysis Nephrology input appreciated Temporary dialysis catheter placed permacath tomorrow 4. Hypoglycemia event, uncontrolled DM no further hypoglycemic episodes lantus stopped, ISS 5. Acute inpatient delirium resolved Continue Seroquel b.i.d. reorientation 6. Diastolic CHF exacerbation volume status improving with dialysis hold bumex, will d/w nephrology on further use 7. COPD exacerbation reoslved, completed steriod course inhalers 8. CAD continue Metoprolol, Plavix on hold for procedure 9. Thrombocytopenia has been low in the past maybe acute worsened due to COVID IR requesting platelets around 75 for the permcath DVT prophylaxis SCDs, documented history of intracranial hemorrhage
[2020-05-18 20:49] LABS: Glucose, Whole Blood 148 mg/dL (60-115)
[2020-05-18] MEDS: Atorvastatin Calcium 40 MG TABLET PO (21:40)
[2020-05-19] MEDS: 0.9 % Sodium Chloride Flush 3 ML SYRINGE IVFLUSH ×2 (01:08→17:34)
[2020-05-19 04:00] VITALS: BP 117/54; PULSE 82; RESP 20; TEMP 37.1; O2SAT 92
[2020-05-19 08:00] VITALS: BP 97/59; PULSE 86; RESP 18; TEMP 36.6; O2SAT 95
[2020-05-19 09:07] LABS: Vancomycin Random 13.2 mcg/mL (15-20)
[2020-05-19 09:31] LABS: Anion Gap 13 (12-20); Blood Urea Nitrogen 17 mg/dL (9-16); Calcium 6.5 mg/dL (8.4-10.2); Carbon Dioxide 33 mmol/L (22-29); Chloride 99 mmol/L (96-108); Creatinine Clr Calc Pharmacy 40.8; Estimated Glomerular Filt Rate 42; Glucose Random 90 mg/dL (60-115); Potassium 2.8 mmol/l (3.3-5.1); Sodium 142 mmol/L (135-145)
[2020-05-19 09:38] LABS: Glucose, Whole Blood 85 mg/dL (60-115)
[2020-05-19 11:17] LABS: Glucose, Whole Blood 75 mg/dL (60-115)
--- NOTE | 2020-05-19 12:37 | HO.PM.IMPN ---
Subjective Subjective Date of Service: 05/19/20 Interval History: Patient being followed for acute on chronic hypoxic respiratory failure, no acute issues overnight oxygen is being weaned currently on 4 L nasal cannula with oxygenation around 94% patient offers no complaints of pain, denies shortness of breath. Review of Systems General no headache, no dizziness, no fever chills. CVS no chest pain, no palpitation. Respiratory no cough, no sputum production, no respiratory distress. Gastrointestinal no nausea, no vomiting, no abdominal pain Physical Exam Vital Signs: Vital Signs: Last Vital Signs Temp 97.9 F 05/19/20 08:00 Pulse 86 05/19/20 08:00 Resp 18 05/19/20 08:00 BP 97/59 L 05/19/20 08:00 Pulse Ox 95 05/19/20 08:00 Body Mass Index 32.5 Const: Other: General - no acute distress, appears comfortable Cardiovascular - regular rate and rhythm, S1-S2 Lungs - no respiratory distress, diminished breath sound at bases Abdomen - soft, nontender, no rebound or guarding Extremities - no edema bilaterally Neuro - awake and alert, no focal deficits skin with multiple bruises Objective Data Current Medications Generic Name Dose Route Start Last Admin Trade Name Freq PRN Reason Stop Dose Admin Atorvastatin Calcium 40 mg 05/05/20 21:00 05/18/20 21:40 Atorvastatin Calcium 40 Mg Tablet PO 40 mg BEDTIME [facility] Administration Docusate Sodium 100 mg 05/05/20 01:14 Docusate Sodium 100 Mg Capsule PO DAILY PRN Constipation Fluoxetine HCl 20 mg 05/05/20 09:00 05/19/20 08:35 Fluoxetine Hcl Oral Solution 20 Mg/5 Ml Solution PO Not Given DAILY [facility] Vancomycin HCl 1,000 mg/ 270 mls @ 265 mls/hr 05/19/20 16:45 Sodium Chloride IV TuThSa@1649 [facility] Insulin Human Lispro 0 unit 05/05/20 11:30 05/19/20 08:34 Insulin Lispro 100 Unit/Ml 3 Ml Vial SUBCUT Not Given QIDACHS [facility] Protocol Isosorbide Mononitrate 60 mg 05/05/20 09:00 05/19/20 08:35 Isosorbide Mononitrate 60 Mg Tab.Er.24h PO Not Given DAILY [facility] Protocol Loperamide HCl 2 mg 05/15/20 13:44 05/15/20 16:53 Loperamide Hcl 2 Mg Capsule PO 2 mg Q6H PRN Administration Diarrhea Metoprolol Tartrate 25 mg 05/05/20 09:00 05/19/20 08:36 Metoprolol Tartrate 25 Mg Tablet PO Not Given BID [facility] Protocol Nystatin 1 appl 05/16/20 11:15 05/19/20 08:36 Nystatin Powder 15 Gm Bottle TOPICAL Not Given BID [facility] Protocol Ondansetron HCl 4 mg 05/05/20 01:14 05/17/20 06:42 Ondansetron Hcl 4 Mg/2 Ml Vial IVPUSH 4 mg Q8H PRN Administration Nausea and Vomiting Oxycodone HCl 5 mg 05/18/20 09:10 05/18/20 14:30 Oxycodone Hcl Immed Release 5 Mg Tablet PO 5 mg Q6H PRN Administration Pain, Severe (Pain Scale 7-10) Pharmacy Consult 1 each 05/04/20 13:26 Consult Rx Perform Med Rec MISCELLANE ONCE PRN Consult order Pharmacy Consult 1 each 05/14/20 11:25 Consult Rx Vancomycin Dosing MISCELLANE DAILY PRN Consult order Quetiapine Fumarate 25 mg 05/09/20 21:00 05/18/20 21:40 Quetiapine Fumarate 25 Mg Tablet PO 25 mg BEDTIME [facility] Administration Quetiapine Fumarate 25 mg 05/09/20 09:15 05/19/20 08:37 Quetiapine Fumarate 25 Mg Tablet PO Not Given DAILY [facility] Sodium Bicarbonate 1,300 mg 05/11/20 21:00 05/19/20 08:37 Sodium Bicarbonate 650 Mg Tablet PO Not Given TID [facility] Sodium Chloride 3 ml 05/05/20 01:14 05/19/20 08:34 0.9 % Sodium Chloride Flush 3 Ml Syringe IVFLUSH Not Given QSHIFT [facility] Vitamin D 50 mcg 05/05/20 09:00 05/19/20 08:35 Cholecalciferol (Vitamin D3) 25 Mcg Tablet PO Not Given DAILY [facility] Labs CBC & Chem 7: 05/18/20 06:03 05/19/20 08:19 Microbiology Microbiology Results: Microbiology 05/09/20 10:20 Blood - Venous Blood Culture - Final No growth after 5 days. 05/09/20 10:20 Blood - Venous Blood Culture - Final No growth after 5 days. 05/07/20 04:01 Blood - Venous Blood Culture - Final Staphylococcus aureus 05/07/20 04:01 Blood - Venous Blood Culture - Final No growth after 5 days. 05/05/20 05:25 Blood - Venous Blood Culture - Final Staphylococcus aureus 05/05/20 05:25 Blood - Venous Blood Culture - Final Staphylococcus aureus 05/04/20 13:40 Blood - Venous Blood Culture - Final Staphylococcus aureus 05/04/20 13:36 Blood - Venous Blood Culture - Final Staphylococcus aureus Assessment and Plan (1) ESRD (end stage renal disease): Problem details: Usually gets HD on TTS Temp catheter placed on 05/12/2020 Shall optimize volume status on HD May need extra UF; Permcath when improved clinically Status: Acute (2) COVID-19: Status: Acute (3) Respiratory failure with hypoxia: Status: Acute (4) Bacteremia due to Staphylococcus: Problem details: Probable dialysis catheter concern This is most likely cause of bacteremia Has fistula Status: Acute (5) Anemia: Status: Acute (6) Acute exacerbation of CHF (congestive heart failure): Status: Acute (7) Pneumonia due to COVID-19 virus: Status: Acute (8) Hypertension: Status: Acute (9) Hyperlipidemia: Status: Acute Assessment and Plan: 69-year-old female with past medical history of COPD as well as CHF who presents to the hospital with acute hypoxic respiratory failure. Patient was also recently diagnosed with COVID-19 on 04/24 1. Acute on chronic hypoxic respiratory failure secondary to COVID-19 pneumonia , CHF and ESRD with fluid overload Tested positive COVID-19 on 04/24, patient hypoxemia improving, transitioned to nasal cannula 4 L tolerating it well so far, continue to wean oxygen Completed decadron Not a candidate for remdesivir/plasma given when she tested positive 2. Staph aureus bacteremia dialysis cath removed, now with temp cath,repeat blood cx negative 05/09 IV vancomcyin post dialysis need 6 weeks of IV antibiotic Patient will need anesthesia for placement of PermCath anesthesia is not available today therefore will schedule PermCath placement for tomorrow a platelet remains below 75,000 will give 1 unit of platelet. 3. ESRD on dialysis Receive hemodialysis this morning tolerated procedure well, PermCath tomorrow 4. Hypoglycemia event, uncontrolled DM Blood sugars stable, no further hypoglycemic episodes,lantus stopped, continue ISS 5. Acute inpatient delirium resolved,Continue Seroquel b.i.d. 6. Diastolic CHF exacerbation volume status improved, is spoke with Nephrology they said she did not have still significant volume overload he recommend to DC Bumex continue dialysis 7. COPD exacerbation reoslved, completed steriod course,inhalers 8. CAD continue Metoprolol, Plavix on hold for procedure 9. Thrombocytopenia has been low in the past,maybe acute worsening due to COVID,IR requesting platelets around 75 for the permcath follow platelets at a.m. and transfuse as needed DVT prophylaxis SCDs, documented history of intracranial hemorrhage
[2020-05-19 13:06] VITALS: BP 113/50; PULSE 88; RESP 16; TEMP 36.2; O2SAT 97
[2020-05-19] MEDS: Sodium Bicarbonate 650 MG TABLET 1300 MG PO ×2 (13:11→21:30)
[2020-05-19] MEDS: Potassium Chloride ER 20 MEQ TAB.ER.PRT 40 MEQ PO (13:11)
[2020-05-19 16:00] VITALS: BP 121/52; PULSE 86; RESP 20; TEMP 36.4; O2SAT 90
[2020-05-19 16:43] LABS: Glucose, Whole Blood 125 mg/dL (60-115)
--- NOTE | 2020-05-19 17:21 | PM.PNNEP ---
Subjective Subjective Date of Service: 05/19/20 Interval history: Patient being followed for acute on chronic hypoxic respiratory failure, no acute issues overnight oxygen is being weaned currently on 4 L nasal cannula with oxygenation around 94% patient offers no complaints of pain, denies shortness of breath. Due to get permcath tomorrow. Seen and examined on HD this AM Physical Exam Vital Signs: Vital Signs: Last Vital Signs Temp 97.6 F 05/19/20 16:00 Pulse 86 05/19/20 16:00 Resp 20 05/19/20 16:00 BP 121/52 L 05/19/20 16:00 Pulse Ox 90 L 05/19/20 16:00 Body Mass Index 32.5 Const: General: no acute distress Orientation/consciousness: patient oriented x3 Neck: Other: LIJ HD cath + Resp: Auscultation: diminished lung sounds GI: Palpation (GI): Soft to palpation Neuro: General: patient oriented x3 Objective Data Labs CBC & Chem 7: 05/18/20 06:03 05/19/20 08:19 Labs: Laboratory Results - last 24 hr 05/18/20 05/19/20 05/19/20 20:38 08:19 08:19 Sodium 142 Potassium 2.8 L D Chloride 99 Carbon Dioxide 33 H Anion Gap 13 BUN 17 H D Creatinine 1.26 Estim Creat Clear Calc 40.8 Estimated GFR 42 POC Glucose 148 H Random Glucose 90 D Calcium 6.5 L Random Vancomycin 13.2 L 05/19/20 05/19/20 05/19/20 09:31 11:14 16:32 Sodium Potassium Chloride Carbon Dioxide Anion Gap BUN Creatinine Estim Creat Clear Calc Estimated GFR POC Glucose 85 75 125 H Random Glucose Calcium Random Vancomycin Microbiology Microbiology Results: Microbiology 05/09/20 10:20 Blood - Venous Blood Culture - Final No growth after 5 days. 05/09/20 10:20 Blood - Venous Blood Culture - Final No growth after 5 days. 05/07/20 04:01 Blood - Venous Blood Culture - Final Staphylococcus aureus 05/07/20 04:01 Blood - Venous Blood Culture - Final No growth after 5 days. 05/05/20 05:25 Blood - Venous Blood Culture - Final Staphylococcus aureus 05/05/20 05:25 Blood - Venous Blood Culture - Final Staphylococcus aureus 05/04/20 13:40 Blood - Venous Blood Culture - Final Staphylococcus aureus 05/04/20 13:36 Blood - Venous Blood Culture - Final Staphylococcus aureus Assessment & Plan Assessment and plan (1) ESRD (end stage renal disease): Problem details: Seen and examined on HD Usually gets HD on TTS Temp catheter placed on 05/12/2020 Shall continue to optimize volume status on HD Permcath when improved clinically Will need 24 hour urine for urea clearance and creatinine clearance later as outpt Status: Acute Time Spent With Patient Time: Total time spent is greater than 50% in coordination of care (as documented) at patient's floor/unit and/or counseling patient:
[2020-05-19] MEDS: vancomycin HCL 1,000 MG in 0.9 % Sodium Chloride 250 ML 265 MG IV (17:34)
[2020-05-19 19:42] LABS: CDIFF Ag Negative (Negative); CDIFF Internal ctrl Dots and bkg OK (V); CDiff Toxin Negative (Negative)
[2020-05-19 20:00] VITALS: BP 103/63; PULSE 86; RESP 20; TEMP 36.8; O2SAT 96
[2020-05-19 20:42] LABS: Glucose, Whole Blood 126 mg/dL (60-115)
[2020-05-19] MEDS: Atorvastatin Calcium 40 MG TABLET PO (21:30)
[2020-05-19] MEDS: QUEtiapine Fumarate 25 MG TABLET PO (21:31)
[2020-05-19] MEDS: Metoprolol Tartrate 25 MG TABLET PO (21:31)
[2020-05-19] MEDS: Nystatin Powder 15 GM BOTTLE 1 APPL TOPICAL (21:32)
[2020-05-19] MEDS: Nystatin Cream 15 GM TUBE 1 APPL TOPICAL (21:32)
[2020-05-20] VITALS (11 sets, daily range): BP systolic 95–117; BP diastolic 51–61; PULSE 78–110; RESP 19–22; TEMP 36–36.8; O2SAT 93–97; BMI 32.8
[2020-05-20] MEDS: 0.9 % Sodium Chloride Flush 3 ML SYRINGE IVFLUSH ×4 (00:56→23:56)
[2020-05-20 06:21] LABS: MANUAL DIFF FLAG NO
[2020-05-20 06:54] LABS: Basophils Percent Auto 0.1 % (0-2); Eosinophils Absolute Auto 0.1 X10*3/uL (0.0-0.4); Eosinophils Percent Auto 0.6 % (0-4); Hematocrit 24.8 % (37-47); Hemoglobin 8.1 g/dl (12.0-16.0); Imm Gran Abs Auto 0.07 X10*3/uL (0.00-0.03); Imm Gran Pct Auto 0.7 % (0.0-0.4); Lymphocytes Absolute Auto 0.9 X10*3/uL (1.2-4.9); Lymphocytes Percent Auto 8.6 % (20-40); Mean Corpuscular HGB Conc 32.7 g/dl (31.0-35.0); Mean Corpuscular Hemoglobin 31.4 pg (27.0-33.0); Mean Corpuscular Volume 96.1 fL (80-98); Monocytes Absolute Auto 0.8 X10*3/uL (0.1-1.2); Monocytes Percent Auto 7.7 % (2-11); Neutrophils Absolute Auto 8.4 X10*3/uL (2.0-8.3); Neutrophils Percent Auto 82.3 % (45-73); Red Blood Count 2.58 X10*6/uL (4.20-5.50); Red Cell Distribution Width 15.6 % (11.0-16.0); White Blood Count 10.2 X10*3/uL (4.8-10.8)
[2020-05-20 06:56] LABS: Platelet Count 38 X10*3/uL (160-400)
[2020-05-20 07:08] LABS: Anion Gap 17 (12-20); Blood Urea Nitrogen 30 mg/dL (9-16); Calcium 6.4 mg/dL (8.4-10.2); Carbon Dioxide 28 mmol/L (22-29); Chloride 102 mmol/L (96-108); Creatinine Clr Calc Pharmacy 19.6; Estimated Glomerular Filt Rate 18; Glucose Random 130 mg/dL (60-115); Potassium 4.3 mmol/l (3.3-5.1); Sodium 143 mmol/L (135-145)
[2020-05-20 07:49] LABS: Glucose, Whole Blood 119 mg/dL (60-115)
[2020-05-20] MEDS: FLUoxetine HCl Oral Solution 20 MG/5 ML SOLUTION PO (08:51)
[2020-05-20] MEDS: Sodium Bicarbonate 650 MG TABLET 1300 MG PO (08:51)
[2020-05-20] MEDS: QUEtiapine Fumarate 25 MG TABLET PO ×2 (08:52→20:57)
[2020-05-20] MEDS: Metoprolol Tartrate 25 MG TABLET PO ×2 (08:52→20:55)
[2020-05-20] MEDS: Cholecalciferol (Vitamin D3) 25 MCG TABLET 50 MCG PO (08:52)
[2020-05-20] MEDS: Nystatin Cream 15 GM TUBE 1 APPL TOPICAL ×2 (08:53→20:58)
[2020-05-20] MEDS: Nystatin Powder 15 GM BOTTLE 1 APPL TOPICAL ×2 (08:53→20:59)
[2020-05-20] MEDS: Isosorbide Mononitrate 60 MG TAB.ER.24H PO (08:53)
[2020-05-20 11:59] LABS: Glucose, Whole Blood 117 mg/dL (60-115)
--- NOTE | 2020-05-20 12:05 | P.PNIM_ITS ---
Subjective Subjective Date of Service: 05/20/20 Interval History: no complaints Cardiovascular Cardiovascular: Reports no additional cardiovascular complaints Respiratory Respiratory: Reports no additional respiratory complaints Physical Exam Vital Signs: Vital Signs: Last Vital Signs Temp 97.6 F 05/20/20 11:37 Pulse 86 05/20/20 11:37 Resp 20 05/20/20 11:37 BP 106/55 L 05/20/20 11:37 Pulse Ox 97 05/20/20 08:00 Body Mass Index 32.8 Const: Other: General - no acute distress, appears comfortable Cardiovascular - regular rate and rhythm, S1-S2 Lungs - no respiratory distress, diminished breath sound at bases Abdomen - soft, nontender, no rebound or guarding Extremities - no edema bilaterally Neuro - awake and alert, no focal deficits skin with multiple bruises General: cooperative, no acute distress and ill appearing Orientation/consciousness: oriented to person, oriented to place and patient oriented x3 Neuro: General: oriented to person, oriented to place and patient oriented x3 Objective Data Current Medications Generic Name Dose Route Start Last Admin Trade Name Yosiq PRN Reason Stop Dose Admin Atorvastatin Calcium 40 mg 05/05/20 21:00 05/19/20 21:30 Atorvastatin Calcium 40 Mg Tablet PO 40 mg BEDTIME [facility] Administration Docusate Sodium 100 mg 05/05/20 01:14 Docusate Sodium 100 Mg Capsule PO DAILY PRN Constipation Fluoxetine HCl 20 mg 05/05/20 09:00 05/20/20 08:51 Fluoxetine Hcl Oral Solution 20 Mg/5 Ml Solution PO 20 mg DAILY [facility] Administration Vancomycin HCl 1,000 mg/ 270 mls @ 265 mls/hr 05/19/20 16:45 05/19/20 19:44 Sodium Chloride IV Infused TuTa@1645 [facility] Infusion Insulin Human Lispro 0 unit 05/05/20 11:30 05/20/20 08:01 Insulin Lispro 100 Unit/Ml 3 Ml Vial SUBCUT Not Given QIDACHS [facility] Protocol Isosorbide Mononitrate 60 mg 05/05/20 09:00 05/20/20 08:53 Isosorbide Mononitrate 60 Mg Tab.Er.24h PO 60 mg DAILY [facility] Administration Protocol Loperamide HCl 2 mg 05/15/20 13:44 05/15/20 16:53 Loperamide Hcl 2 Mg Capsule PO 2 mg Q6H PRN Administration Diarrhea Metoprolol Tartrate 25 mg 05/05/20 09:00 05/20/20 08:52 Metoprolol Tartrate 25 Mg Tablet PO 25 mg BID [facility] Administration Protocol Nystatin 1 appl 05/16/20 11:15 05/20/20 08:53 Nystatin Powder 15 Gm Bottle TOPICAL 1 appl BID [facility] Administration Protocol Nystatin 1 appl 05/19/20 21:00 05/20/20 08:53 Nystatin Cream 15 Gm Tube TOPICAL 1 appl BID [facility] Administration Protocol Ondansetron HCl 4 mg 05/05/20 01:14 05/17/20 06:42 Ondansetron Hcl 4 Mg/2 Ml Vial IVPUSH 4 mg Q8H PRN Administration Nausea and Vomiting Oxycodone HCl 5 mg 05/18/20 09:10 05/18/20 14:30 Oxycodone Hcl Immed Release 5 Mg Tablet PO 5 mg Q6H PRN Administration Pain, Severe (Pain Scale 7-10) Pharmacy Consult 1 each 05/04/20 13:26 Consult Rx Perform Med Rec MISCELLANE ONCE PRN Consult order Pharmacy Consult 1 each 05/14/20 11:25 Consult Rx Vancomycin Dosing MISCELLANE DAILY PRN Consult order Quetiapine Fumarate 25 mg 05/09/20 21:00 05/19/20 21:31 Quetiapine Fumarate 25 Mg Tablet PO 25 mg BEDTIME [facility] Administration Quetiapine Fumarate 25 mg 05/09/20 09:15 05/20/20 08:52 Quetiapine Fumarate 25 Mg Tablet PO 25 mg DAILY [facility] Administration Sodium Chloride 3 ml 05/05/20 01:14 05/20/20 08:01 0.9 % Sodium Chloride Flush 3 Ml Syringe IVFLUSH 3 ml QSHIFT [facility] Administration Vitamin D 50 mcg 05/05/20 09:00 05/20/20 08:52 Cholecalciferol (Vitamin D3) 25 Mcg Tablet PO 50 mcg DAILY [facility]AL Administration Labs CBC & Chem 7: 05/20/20 05:08 05/20/20 05:08 Microbiology Microbiology Results: Microbiology 05/09/20 10:20 Blood - Venous Blood Culture - Final No growth after 5 days. 05/09/20 10:20 Blood - Venous Blood Culture - Final No growth after 5 days. 05/07/20 04:01 Blood - Venous Blood Culture - Final Staphylococcus aureus 05/07/20 04:01 Blood - Venous Blood Culture - Final No growth after 5 days. 05/05/20 05:25 Blood - Venous Blood Culture - Final Staphylococcus aureus 05/05/20 05:25 Blood - Venous Blood Culture - Final Staphylococcus aureus 05/04/20 13:40 Blood - Venous Blood Culture - Final Staphylococcus aureus 05/04/20 13:36 Blood - Venous Blood Culture - Final Staphylococcus aureus Assessment and Plan (1) ESRD (end stage renal disease): Status: Acute Assessment and Plan: 69-year-old female with past medical history of COPD as well as CHF who presented to the hospital with acute hypoxic respiratory failure. Patient was also recently diagnosed with COVID-19 on 04/24 Acute on chronic hypoxic respiratory failure secondary to COVID-19 pneumonia , CHF and ESRD with fluid overload Tested positive COVID-19 on 04/24, patient hypoxemia improving, continue to wean oxygen Completed decadron Not a candidate for remdesivir/plasma given when she tested positive Staph aureus bacteremia dialysis cath removed, now with temporary cath,repeat blood cx negative 05/09 IV vancomcyin post dialysis need 6 weeks of IV antibiotic Patient will need anesthesia for placement of PermCath monitor platelets, will need >50 ESRD on dialysis HD Hypoglycemia event, uncontrolled DM ISS Acute inpatient delirium resolved,Continue Seroquel b.i.d. Diastolic CHF exacerbation volume status improved, continue dialysis COPD exacerbation reoslved, completed steriod course,inhalers CAD continue Metoprolol, Plavix on hold for procedure Thrombocytopenia has been low in the past,maybe acute worsening due to COVID/bacteremia, 38 today, will give another unit, hematology eval DVT prophylaxis SCDs, documented history of intracranial hemorrhage
--- NOTE | 2020-05-20 14:22 | MHC.CM.PN ---
Patient needs a perma cath placement but was postponed from today r/t PLT count is 38 and needs to be >50. Patient is on 5 liters O2 to keep sats >90%. HD 3 x wkly where she is receiving IV Vanco x 6 wks. Discharge plan is home with [employer] and family. Patient will need BLS transport. CM will continue to follow patient for discharge needs.
--- NOTE | 2020-05-20 14:32 | MHC.CLN ---
F/U PO 25-50% PT CURRENTLY NPO WHEN DIET ADVANCED RE-START BREANNA AND ENSURE CLEAR TID TO SUPPORT WOUND HEALING FOLLOWING
--- NOTE | 2020-05-20 15:11 | PM.HEMONCCN ---
Subjective - Subjective Chief complaint: None Patient: new to practice Consult date: 05/20/20 Requesting Physician: Dr. Arce Primary Care Provider: Unknown Physician HPI - Consult Narrative Reason for consult: Thrombocytopenia Narrative: Liliam Castañeda is a 69 year old female admitted to the hospital with COVID-19 and acute on chronic hypoxic respiratory failure. She was diagnosed with COVID-19 pneumonia, CHF and end-stage renal disease. She was given plasma. She also developed Staph aureus bacteremia and has been receiving IV vancomycin. Patient found to be thrombocytopenic since admission, in the recent days it has worsened and currently at 38 K. she has longstanding anemia probably related to end stage kidney disease. Reviewing her chart, she has had chronic intermittent thrombocytopenia dating back to 2011. However it has been above 100 K. This is an acute drop during this hospitalization. [facility] Medical History: Medical History (Last Reviewed 05/22/20 @ 13:43 by Juanita Arguello) Bacteremia due to Staphylococcus Constipation COPD (chronic obstructive pulmonary disease) Diabetes Diastolic dysfunction Diverticulitis Dyspnea Smoking status: Smoker, status unknown Home Medications and Allergies Current Medications: Current Medications Generic Name Dose Route Start Last Admin Trade Name Freq PRN Reason Stop Dose Admin Atorvastatin Calcium 40 mg 05/05/20 21:00 05/19/20 21:30 Atorvastatin Calcium 40 Mg Tablet PO 40 mg BEDTIME [facility] Administration Docusate Sodium 100 mg 05/05/20 01:14 Docusate Sodium 100 Mg Capsule PO DAILY PRN Constipation Fluoxetine HCl 20 mg 05/05/20 09:00 05/20/20 08:51 Fluoxetine Hcl Oral Solution 20 Mg/5 Ml Solution PO 20 mg DAILY [facility] Administration Vancomycin HCl 1,000 mg/ 270 mls @ 265 mls/hr 05/19/20 16:45 05/19/20 19:44 Sodium Chloride IV Infused TuThSa@1645 [facility] Infusion Insulin Human Lispro 0 unit 05/05/20 11:30 05/20/20 12:15 Insulin Lispro 100 Unit/Ml 3 Ml Vial SUBCUT Not Given QIDACHS [facility] Protocol Isosorbide Mononitrate 60 mg 05/05/20 09:00 05/20/20 08:53 Isosorbide Mononitrate 60 Mg Tab.Er.24h PO 60 mg DAILY [facility] Administration Protocol Loperamide HCl 2 mg 05/15/20 13:44 05/15/20 16:53 Loperamide Hcl 2 Mg Capsule PO 2 mg Q6H PRN Administration Diarrhea Metoprolol Tartrate 25 mg 05/05/20 09:00 05/20/20 08:52 Metoprolol Tartrate 25 Mg Tablet PO 25 mg BID [facility]AL Administration Protocol Nystatin 1 appl 05/16/20 11:15 05/20/20 08:53 Nystatin Powder 15 Gm Bottle TOPICAL 1 appl BID [facility] Administration Protocol Nystatin 1 appl 05/19/20 21:00 05/20/20 08:53 Nystatin Cream 15 Gm Tube TOPICAL 1 appl BID [facility] Administration Protocol Ondansetron HCl 4 mg 05/05/20 01:14 05/17/20 06:42 Ondansetron Hcl 4 Mg/2 Ml Vial IVPUSH 4 mg Q8H PRN Administration Nausea and Vomiting Oxycodone HCl 5 mg 05/18/20 09:10 05/18/20 14:30 Oxycodone Hcl Immed Release 5 Mg Tablet PO 5 mg Q6H PRN Administration Pain, Severe (Pain Scale 7-10) Pharmacy Consult 1 each 05/04/20 13:26 Consult Rx Perform Med Rec MISCELLANE ONCE PRN Consult order Pharmacy Consult 1 each 05/14/20 11:25 Consult Rx Vancomycin Dosing MISCELLANE DAILY PRN Consult order Quetiapine Fumarate 25 mg 05/09/20 21:00 05/19/20 21:31 Quetiapine Fumarate 25 Mg Tablet PO 25 mg BEDTIME [facility] Administration Quetiapine Fumarate 25 mg 05/09/20 09:15 05/20/20 08:52 Quetiapine Fumarate 25 Mg Tablet PO 25 mg DAILY [facility] Administration Sodium Chloride 3 ml 05/05/20 01:14 05/20/20 08:01 0.9 % Sodium Chloride Flush 3 Ml Syringe IVFLUSH 3 ml QSHIFT [facility] Administration Vitamin D 50 mcg 05/05/20 09:00 05/20/20 08:52 Cholecalciferol (Vitamin D3) 25 Mcg Tablet PO 50 mcg DAILY [facility]AL Administration Home Medications Medication Instructions Recorded Confirmed Type atorvastatin 40 mg PO BEDTIME 04/24/20 05/04/20 History bumetanide 4 mg PO SUTUTHSA@0800,1700 04/24/20 05/04/20 History cholecalciferol (vitamin D3) 50 mcg PO QAM 04/24/20 05/04/20 History clopidogrel 75 mg PO BEDTIME 04/24/20 05/04/20 History fluoxetine 5 ml PO DAILY 04/24/20 05/04/20 History isosorbide mononitrate 60 mg PO QAM 04/24/20 05/04/20 History metoprolol tartrate 25 mg PO BID 04/24/20 05/04/20 History lorazepam 0.5 mg PO DAILY PRN 05/04/20 05/04/20 History quetiapine 25 mg PO BEDTIME PRN 05/04/20 05/04/20 History umeclidinium-vilanterol [Anoro 1 puff INHALATION DAILY 05/04/20 05/04/20 History Ellipta] Allergies Allergy/AdvReac Type Severity Reaction Status Date / Time Penicillins Allergy Severe Anaphylaxis, Verified 05/13/20 12:33 hives acetaminophen [From TYLENOL] Allergy Unknown Unknown Verified 05/13/20 12:36 aspirin [ASPIRIN] Allergy Unknown rash, Verified 05/13/20 12:33 stomach upset diazepam [From VALIUM] Allergy Unknown RESP Verified 04/24/20 20:22 FAILURE penicillin V Allergy Unknown edema Verified 11/21/19 00:00 metformin [Metformin] AdvReac Mild DIARRHEA Verified 04/24/20 20:22 Physical Exam Vital signs: Vital Signs Temp 97.8 F 05/20/20 11:58 Pulse 97 05/20/20 11:58 Resp 20 05/20/20 11:58 BP 112/58 L 05/20/20 11:58 Pulse Ox 97 05/20/20 08:00 Intake & Output 05/19/20 05/20/20 05/20/20 18:59 06:59 18:59 Intake Total 180 / 810 630 / 810 336 / 336 Balance 180 / 810 630 / 810 336 / 336 Intake: Intake, Oral Amount 180 / 540 360 / 540 Intake (Blood Product) Amount 211 / 211 Apheresis Platelets Irr(E3056) 211 / 211 Unit [id number] Intake, Other Amount 125 / 125 Apheresis Platelets Irr(E3056) 125 / 125 Unit [id number] Intake, IV Amount 270 / 270 vancomycin HCL 1,000 mg In 0.9 270 / 270 % Sodium Chloride 250 ml @ 265 mls/hr IV TuThSa@1645 [facility] Rx#: [id number] Other: Lunch % Eaten 50% Dinner % Eaten 50% Number of Incontinent Voids 1 Number of Bowel Movements 2 Stool Incontinent Incontinent Stool Amount Moderate Large Stool Color Brown Brown Stool Consistency Pasty Loose Weight 81.3 kg Weight 81.3 kg Hem/Onc Consult Result - Labs CBC & Chem 7: 05/22/20 06:08 05/22/20 06:08 Labs: Short CBC 05/20/20 05/20/20 Range/Units 05:08 13:05 WBC 10.2 Cancelled (4.8-10.8) X10*3/uL Hgb 8.1 L Cancelled (12.0-16.0) g/dl Hct 24.8 L Cancelled (37-47) % Plt Count 38 L D Cancelled (160-400) X10*3/uL BMP 05/20/20 05:08 Sodium 143 Potassium 4.3 D Chloride 102 Carbon Dioxide 28 BUN 30 H D Creatinine 2.64 H Calcium 6.4 L Assessment and Plan (1) Thrombocytopenia Status: Acute 1. This is a 69-year-old woman with multiple medical problems admitted for acute hypoxic respiratory failure secondary to COVID-19 pneumonia found to have worsening thrombocytopenia. She has end-stage renal disease and developed Staph aureus bacteremia. She has been receiving IV vancomycin. She appears to have underlying chronic intermittent thrombocytopenia, probable ITP which has worsened in the recent days. This is multifactorial. Probably related to recent infection, sepsis as well as use of vancomycin which can cause immune mediated thrombocytopenia. This can be associated with bleeding. She should be transfused to keep her platelets above 30,000. For any surgical intervention transfuse platelets to keep numbers above 50 K. She is not coagulopathy. Anemia is chronic, LDH is marginally elevated. No reason to suspect DIC or TTP. Check vitamin B12 and folic acid levels. 2. Anemia, normocytic with elevated vitamin B12 and ferritin. She probably has anemia of chronic disease, renal failure. Transfuse blood to keep her hemoglobin above 8 gram/dL. Thank you for this referral, will follow with you.
[2020-05-20 15:21] LABS: Lactate Dehydrogenase 352 U/L (122-220)
[2020-05-20 15:23] LABS: Hemoglobin 7.7 g/dl (12.0-16.0); Mean Corpuscular HGB Conc 32.1 g/dl (31.0-35.0); Mean Corpuscular Volume 96.8 fL (80-98); Red Blood Count 2.48 X10*6/uL (4.20-5.50); Red Cell Distribution Width 15.7 % (11.0-16.0); White Blood Count 9.8 X10*3/uL (4.8-10.8)
[2020-05-20 15:45] LABS: Platelet Count 59 X10*3/uL (160-400)
[2020-05-20 15:52] LABS: Glucose, Whole Blood 107 mg/dL (60-115)
[2020-05-20 16:12] LABS: Folate 4.8 ng/mL (> or = 4.0); Vitamin B12 > 2000 pg/mL (200-900)
[2020-05-20 19:43] LABS: Glucose, Whole Blood 118 mg/dL (60-115)
[2020-05-20] MEDS: Atorvastatin Calcium 40 MG TABLET PO (20:56)
[2020-05-21 03:59] VITALS: BP 98/57; PULSE 88; RESP 18; TEMP 36.8; O2SAT 97
[2020-05-21 05:54] VITALS: BMI 32.9
[2020-05-21 07:38] LABS: Glucose, Whole Blood 107 mg/dL (60-115)
[2020-05-21 08:00] VITALS: BP 123/57; PULSE 83; RESP 20; TEMP 36.6; O2SAT 90
[2020-05-21 08:10] LABS: MANUAL DIFF FLAG NO
[2020-05-21 08:12] LABS: Basophils Percent Auto 0.1 % (0-2); Eosinophils Absolute Auto 0.1 X10*3/uL (0.0-0.4); Eosinophils Percent Auto 1.7 % (0-4); Hematocrit 23.9 % (37-47); Hemoglobin 7.7 g/dl (12.0-16.0); Imm Gran Abs Auto 0.05 X10*3/uL (0.00-0.03); Imm Gran Pct Auto 0.6 % (0.0-0.4); Lymphocytes Absolute Auto 0.8 X10*3/uL (1.2-4.9); Lymphocytes Percent Auto 10.1 % (20-40); Mean Corpuscular HGB Conc 32.2 g/dl (31.0-35.0); Mean Corpuscular Hemoglobin 31.4 pg (27.0-33.0); Mean Corpuscular Volume 97.6 fL (80-98); Mean Platelet Volume 12.5 fL (9.4-12.3); Monocytes Absolute Auto 0.5 X10*3/uL (0.1-1.2); Monocytes Percent Auto 6.6 % (2-11); Neutrophils Absolute Auto 6.3 X10*3/uL (2.0-8.3); Neutrophils Percent Auto 80.9 % (45-73); Platelet Count 46 X10*3/uL (160-400); Red Blood Count 2.45 X10*6/uL (4.20-5.50); Red Cell Distribution Width 15.7 % (11.0-16.0); White Blood Count 7.8 X10*3/uL (4.8-10.8)
[2020-05-21 08:45] LABS: Anion Gap 14 (12-20); Blood Urea Nitrogen 35 mg/dL (9-16); Calcium 6.7 mg/dL (8.4-10.2); Carbon Dioxide 30 mmol/L (22-29); Chloride 102 mmol/L (96-108); Creatinine Clr Calc Pharmacy 14.8; Estimated Glomerular Filt Rate 13; Glucose Fasting 119 mg/dL (60-99); Potassium 3.9 mmol/l (3.3-5.1); Sodium 142 mmol/L (135-145)
[2020-05-21] MEDS: Cholecalciferol (Vitamin D3) 25 MCG TABLET 50 MCG PO (08:46)
[2020-05-21] MEDS: FLUoxetine HCl Oral Solution 20 MG/5 ML SOLUTION PO (08:46)
[2020-05-21] MEDS: QUEtiapine Fumarate 25 MG TABLET PO ×2 (08:46→21:27)
[2020-05-21] MEDS: Metoprolol Tartrate 25 MG TABLET PO ×2 (08:46→21:26)
[2020-05-21] MEDS: Isosorbide Mononitrate 60 MG TAB.ER.24H PO (08:46)
[2020-05-21] MEDS: 0.9 % Sodium Chloride Flush 3 ML SYRINGE IVFLUSH ×2 (08:47→16:49)
--- NOTE | 2020-05-21 10:26 | PM.PNNEP ---
Subjective Subjective Date of Service: 05/21/20 Interval history: No complaints. Events noted. Due HD today. Awaiting permcath placement by IR Physical Exam Vital Signs: Vital Signs: Last Vital Signs Temp 97.8 F 05/21/20 08:00 Pulse 83 05/21/20 08:00 Resp 20 05/21/20 08:00 BP 123/57 L 05/21/20 08:00 Pulse Ox 90 L 05/21/20 08:00 Body Mass Index 32.9 Const: General: comfortable Neck: Neck: Yes supple Resp: Auscultation: diminished lung sounds Cardio: Heart sounds: no rubs GI: Palpation (GI): Soft to palpation Neuro: General: moves all extremities Extrem: Left upper extremity: no edema Objective Data Labs CBC & Chem 7: 05/21/20 08:02 05/21/20 08:02 Labs: Laboratory Results - last 24 hr 05/20/20 05/20/20 05/20/20 05:08 07:08 09:07 WBC RBC Hgb Hct MCV MCH MCHC RDW Plt Count MPV Immature Gran % (Auto) Neut % (Auto) Lymph % (Auto) [place] % (Auto) Eos % (Auto) Baso % (Auto) Lymph # (Auto) [place] # (Auto) Eos # (Auto) Baso # (Auto) Abs Immat Gran (auto) Absolute Neuts (auto) Absolute Nucleated RBC Nucleated RBC % (auto) Sodium Potassium Chloride Carbon Dioxide Anion Gap BUN Creatinine Estim Creat Clear Calc Estimated GFR POC Glucose Random Glucose Fasting Glucose Calcium Lactate Dehydrogenase 352 H Vitamin B12 > 2000 H Folate 4.8 Blood Type O Positive Antibody Screen NEGATIVE 05/20/20 05/20/20 05/20/20 11:56 13:05 15:11 WBC Cancelled 9.8 RBC Cancelled 2.48 L Hgb Cancelled 7.7 L Hct Cancelled 24.0 L MCV Cancelled 96.8 MCH Cancelled 31.0 MCHC Cancelled 32.1 RDW Cancelled 15.7 Plt Count Cancelled 59 L D MPV Cancelled 13.0 H Immature Gran % (Auto) Neut % (Auto) Lymph % (Auto) [place] % (Auto) Eos % (Auto) Baso % (Auto) Lymph # (Auto) [place] # (Auto) Eos # (Auto) Baso # (Auto) Abs Immat Gran (auto) Absolute Neuts (auto) Absolute Nucleated RBC Cancelled 0.000 Nucleated RBC % (auto) Cancelled 0.0 Sodium Potassium Chloride Carbon Dioxide Anion Gap BUN Creatinine Estim Creat Clear Calc Estimated GFR POC Glucose 117 H Random Glucose Fasting Glucose Calcium Lactate Dehydrogenase Vitamin B12 Folate Blood Type Antibody Screen 05/20/20 05/20/20 05/21/20 15:48 19:39 07:34 WBC RBC Hgb Hct MCV MCH MCHC RDW Plt Count MPV Immature Gran % (Auto) Neut % (Auto) Lymph % (Auto) [place] % (Auto) Eos % (Auto) Baso % (Auto) Lymph # (Auto) [place] # (Auto) Eos # (Auto) Baso # (Auto) Abs Immat Gran (auto) Absolute Neuts (auto) Absolute Nucleated RBC Nucleated RBC % (auto) Sodium Potassium Chloride Carbon Dioxide Anion Gap BUN Creatinine Estim Creat Clear Calc Estimated GFR POC Glucose 107 118 H 107 Random Glucose Fasting Glucose Calcium Lactate Dehydrogenase Vitamin B12 Folate Blood Type Antibody Screen 05/21/20 05/21/20 08:02 08:02 WBC 7.8 RBC 2.45 L Hgb 7.7 L Hct 23.9 L MCV 97.6 MCH 31.4 MCHC 32.2 RDW 15.7 Plt Count 46 L MPV 12.5 H Immature Gran % (Auto) 0.6 H Neut % (Auto) 80.9 H Lymph % (Auto) 10.1 L [place] % (Auto) 6.6 Eos % (Auto) 1.7 Baso % (Auto) 0.1 Lymph # (Auto) 0.8 L [place] # (Auto) 0.5 Eos # (Auto) 0.1 Baso # (Auto) 0.0 Abs Immat Gran (auto) 0.05 H Absolute Neuts (auto) 6.3 Absolute Nucleated RBC 0.000 Nucleated RBC % (auto) 0.0 Sodium 142 Potassium 3.9 Chloride 102 Carbon Dioxide 30 H Anion Gap 14 BUN 35 H Creatinine 3.50 H Estim Creat Clear Calc 14.8 Estimated GFR 13 POC Glucose Random Glucose TNP Fasting Glucose 119 H Calcium 6.7 L Lactate Dehydrogenase Vitamin B12 Folate Blood Type Antibody Screen Microbiology Microbiology Results: Microbiology 05/09/20 10:20 Blood - Venous Blood Culture - Final No growth after 5 days. 05/09/20 10:20 Blood - Venous Blood Culture - Final No growth after 5 days. 05/07/20 04:01 Blood - Venous Blood Culture - Final Staphylococcus aureus 05/07/20 04:01 Blood - Venous Blood Culture - Final No growth after 5 days. 05/05/20 05:25 Blood - Venous Blood Culture - Final Staphylococcus aureus 05/05/20 05:25 Blood - Venous Blood Culture - Final Staphylococcus aureus 05/04/20 13:40 Blood - Venous Blood Culture - Final Staphylococcus aureus 05/04/20 13:36 Blood - Venous Blood Culture - Final Staphylococcus aureus Assessment & Plan Assessment and plan (1) ESRD (end stage renal disease): Problem details: Usually gets HD on TTS Due HD today. Still has temporary HD catheter IR to place permcath tomorrow Renal Diet; Continued volume optimization on HD Vancomycin post HD- total duration of 6 weeks Procrit [id number] Units TTS; Shall follow along Status: Acute Time Spent With Patient Time: Total time spent is greater than 50% in coordination of care (as documented) at patient's floor/unit and/or counseling patient:
[2020-05-21 11:16] LABS: Glucose, Whole Blood 114 mg/dL (60-115)
[2020-05-21] MEDS: Nystatin Powder 15 GM BOTTLE 1 APPL TOPICAL ×2 (11:58→21:28)
[2020-05-21] MEDS: Nystatin Cream 15 GM TUBE 1 APPL TOPICAL ×2 (11:59→21:27)
--- NOTE | 2020-05-21 13:05 | HO.PM.IMPN ---
Subjective Subjective Date of Service: 05/21/20 Interval History: hungry Cardiovascular Cardiovascular: Reports no additional cardiovascular complaints Gastrointestinal Gastrointestinal: Reports no additional gastrointestinal complaints Physical Exam Vital Signs: Vital Signs: Last Vital Signs Temp 97.8 F 05/21/20 08:00 Pulse 83 05/21/20 08:00 Resp 20 05/21/20 08:00 BP 123/57 L 05/21/20 08:00 Pulse Ox 90 L 05/21/20 08:00 Body Mass Index 32.9 General: Alert, no acute distress Resp: CTA bilateral CVS: S1,S2,RRR GI: soft, non tender, non distended Neuro: motor grossly intact Psych: appropriate affect Objective Data Current Medications Generic Name Dose Route Start Last Admin Trade Name Freq PRN Reason Stop Dose Admin Atorvastatin Calcium 40 mg 05/05/20 21:00 05/20/20 20:56 Atorvastatin Calcium 40 Mg Tablet PO 40 mg BEDTIME OPAL Administration Docusate Sodium 100 mg 05/05/20 01:14 Docusate Sodium 100 Mg Capsule PO DAILY PRN Constipation Fluoxetine HCl 20 mg 05/05/20 09:00 05/21/20 08:46 Fluoxetine Hcl Oral Solution 20 Mg/5 Ml Solution PO 20 mg DAILY [facility] Administration Cefazolin Sodium/Dextrose 2 gm in 50 mls @ 100 mls/hr 05/21/20 16:45 Ancef IV [id number] [facility] Insulin Human Lispro 0 unit 05/05/20 11:30 05/21/20 11:59 Insulin Lispro 100 Unit/Ml 3 Ml Vial SUBCUT Not Given QIDACHS [facility] Protocol Isosorbide Mononitrate 60 mg 05/05/20 09:00 05/21/20 08:46 Isosorbide Mononitrate 60 Mg Tab.Er.24h PO 60 mg DAILY [facility] Administration Protocol Loperamide HCl 2 mg 05/15/20 13:44 05/15/20 16:53 Loperamide Hcl 2 Mg Capsule PO 2 mg Q6H PRN Administration Diarrhea Metoprolol Tartrate 25 mg 05/05/20 09:00 05/21/20 08:46 Metoprolol Tartrate 25 Mg Tablet PO 25 mg BID [facility] Administration Protocol Nystatin 1 appl 05/16/20 11:15 05/21/20 11:58 Nystatin Powder 15 Gm Bottle TOPICAL 1 appl BID OPAL Administration Protocol Nystatin 1 appl 05/19/20 21:00 05/21/20 11:59 Nystatin Cream 15 Gm Tube TOPICAL 1 appl BID OPAL Administration Protocol Ondansetron HCl 4 mg 05/05/20 01:14 05/17/20 06:42 Ondansetron Hcl 4 Mg/2 Ml Vial IVPUSH 4 mg Q8H PRN Administration Nausea and Vomiting Oxycodone HCl 5 mg 05/18/20 09:10 05/18/20 14:30 Oxycodone Hcl Immed Release 5 Mg Tablet PO 5 mg Q6H PRN Administration Pain, Severe (Pain Scale 7-10) Quetiapine Fumarate 25 mg 05/09/20 21:00 05/20/20 20:57 Quetiapine Fumarate 25 Mg Tablet PO 25 mg BEDTIME OPAL Administration Quetiapine Fumarate 25 mg 05/09/20 09:15 05/21/20 08:46 Quetiapine Fumarate 25 Mg Tablet PO 25 mg DAILY [facility] Administration Sodium Chloride 3 ml 05/05/20 01:14 05/21/20 08:47 0.9 % Sodium Chloride Flush 3 Ml Syringe IVFLUSH 3 ml QSHIFT OPAL Administration Vitamin D 50 mcg 05/05/20 09:00 05/21/20 08:46 Cholecalciferol (Vitamin D3) 25 Mcg Tablet PO 50 mcg DAILY [facility] Administration Labs CBC & Chem 7: 05/21/20 08:02 05/21/20 08:02 Microbiology Microbiology Results: Microbiology 05/09/20 10:20 Blood - Venous Blood Culture - Final No growth after 5 days. 05/09/20 10:20 Blood - Venous Blood Culture - Final No growth after 5 days. 05/07/20 04:01 Blood - Venous Blood Culture - Final Staphylococcus aureus 05/07/20 04:01 Blood - Venous Blood Culture - Final No growth after 5 days. 05/05/20 05:25 Blood - Venous Blood Culture - Final Staphylococcus aureus 05/05/20 05:25 Blood - Venous Blood Culture - Final Staphylococcus aureus 05/04/20 13:40 Blood - Venous Blood Culture - Final Staphylococcus aureus 05/04/20 13:36 Blood - Venous Blood Culture - Final Staphylococcus aureus Assessment and Plan (1) ESRD (end stage renal disease): Problem details: Usually gets HD on TTS Due HD today. Still has temporary HD catheter IR to place permcath tomorrow Renal Diet; Continued volume optimization on HD Vancomycin post HD- total duration of 6 weeks Procrit [id number] Units TTS; Shall follow along Status: Acute Assessment and Plan: 69-year-old female with past medical history of COPD as well as CHF who presented to the hospital with acute hypoxic respiratory failure. Patient was also recently diagnosed with COVID-19 on 04/24 Acute on chronic hypoxic respiratory failure secondary to COVID-19 pneumonia , CHF and ESRD with fluid overload Tested positive COVID-19 on 04/24, patient hypoxemia improving, continue to wean oxygen Completed decadron Not a candidate for remdesivir/plasma given when she tested positive Staph aureus bacteremia - mssa dialysis cath removed, now with temporary cath,repeat blood cx negative 05/09 changed to ancef 2gm post hd Patient will need anesthesia for placement of PermCath monitor platelets, will need >50, plan for tomorrow ESRD on dialysis HD Hypoglycemia event, uncontrolled DM ISS Acute inpatient delirium resolved,Continue Seroquel b.i.d. Diastolic CHF exacerbation volume status improved, continue dialysis COPD exacerbation reoslved, completed steriod course,inhalers CAD continue Metoprolol, Plavix on hold for procedure Thrombocytopenia has been low in the past,maybe acute worsening due to COVID/bacteremia, 38 today, will give another unit, hematology eval DVT prophylaxis SCDs, documented history of intracranial hemorrhage
[2020-05-21 16:48] VITALS: BP 104/54; PULSE 77; RESP 22; TEMP 36.4; O2SAT 97
[2020-05-21] MEDS: ceFAZolin Sodium/Dextrose,Iso 2 GM/50 ML PIGGYBACK IV (16:52)
[2020-05-21 17:02] LABS: Glucose, Whole Blood 113 mg/dL (60-115)
[2020-05-21 20:01] VITALS: BP 129/58; PULSE 88; RESP 18; TEMP 36.6; O2SAT 92
[2020-05-21 20:07] LABS: Glucose, Whole Blood 120 mg/dL (60-115)
[2020-05-21 21:26] VITALS: BP 129/58; PULSE 88
[2020-05-21] MEDS: Atorvastatin Calcium 40 MG TABLET PO (21:27)
[2020-05-22] VITALS (8 sets, daily range): BP systolic 105–135; BP diastolic 45–63; PULSE 70–99; RESP 18–20; TEMP 36.3–36.7; O2SAT 90–97; BMI 34.2
[2020-05-22] MEDS: 0.9 % Sodium Chloride Flush 3 ML SYRINGE IVFLUSH ×4 (00:45→22:01)
[2020-05-22] MEDS: oxyCODONE HCl Immed Release 5 MG TABLET PO (01:40)
[2020-05-22 06:55] LABS: Basophils Percent Auto 0.1 % (0-2); MANUAL DIFF FLAG SCAN; Red Blood Count 2.37 X10*6/uL (4.20-5.50); Red Cell Distribution Width 15.8 % (11.0-16.0); SCAN SMEAR FLAG 1
[2020-05-22 06:57] LABS: Eosinophils Absolute Auto 0.1 X10*3/uL (0.0-0.4); Eosinophils Percent Auto 1.5 % (0-4); Hematocrit 23.3 % (37-47); Hemoglobin 7.4 g/dl (12.0-16.0); Imm Gran Abs Auto 0.05 X10*3/uL (0.00-0.03); Imm Gran Pct Auto 0.7 % (0.0-0.4); Mean Corpuscular HGB Conc 31.8 g/dl (31.0-35.0); Mean Corpuscular Hemoglobin 31.2 pg (27.0-33.0); Mean Corpuscular Volume 98.3 fL (80-98); Monocytes Absolute Auto 0.6 X10*3/uL (0.1-1.2); Monocytes Percent Auto 8.3 % (2-11); Neutrophils Absolute Auto 5.6 X10*3/uL (2.0-8.3); Neutrophils Percent Auto 76.4 % (45-73); White Blood Count 7.3 X10*3/uL (4.8-10.8)
[2020-05-22 07:11] LABS: PLT ABN DIST 1; Platelet Count 38 X10*3/uL (160-400)
[2020-05-22 07:14] LABS: Anion Gap 13 (12-20); Blood Urea Nitrogen 18 mg/dL (9-16); Calcium 7.3 mg/dL (8.4-10.2); Carbon Dioxide 29 mmol/L (22-29); Chloride 101 mmol/L (96-108); Creatinine Clr Calc Pharmacy 21.7; Estimated Glomerular Filt Rate 20; Glucose Fasting 98 mg/dL (60-99); Potassium 3.8 mmol/l (3.3-5.1); Sodium 139 mmol/L (135-145)
[2020-05-22 07:53] LABS: SLIDE REVIEW VERIFIED
[2020-05-22 08:43] LABS: Glucose, Whole Blood 90 mg/dL (60-115)
[2020-05-22] MEDS: FLUoxetine HCl Oral Solution 20 MG/5 ML SOLUTION PO (09:59)
[2020-05-22] MEDS: Metoprolol Tartrate 25 MG TABLET PO ×2 (09:59→22:00)
[2020-05-22] MEDS: QUEtiapine Fumarate 25 MG TABLET PO ×2 (09:59→22:01)
[2020-05-22] MEDS: Isosorbide Mononitrate 60 MG TAB.ER.24H PO (09:59)
[2020-05-22] MEDS: Nystatin Cream 15 GM TUBE 1 APPL TOPICAL (10:05)
[2020-05-22] MEDS: Nystatin Powder 15 GM BOTTLE 1 APPL TOPICAL ×2 (10:05→22:05)
--- NOTE | 2020-05-22 11:12 | HO.PM.IMPN ---
Subjective Subjective Date of Service: 05/22/20 Interval History: hungry Cardiovascular Cardiovascular: Reports no additional cardiovascular complaints Gastrointestinal Gastrointestinal: Reports no additional gastrointestinal complaints Physical Exam Vital Signs: Vital Signs: Last Vital Signs Temp 97.4 F 05/22/20 08:00 Pulse 99 05/22/20 08:00 Resp 18 05/22/20 08:00 BP 110/50 L 05/22/20 08:00 Pulse Ox 90 L 05/22/20 08:00 Body Mass Index 34.2 General: Alert, no acute distress Resp: CTA bilateral CVS: S1,S2,RRR GI: soft, non tender, non distended Neuro: motor grossly intact Psych: appropriate affect Objective Data Current Medications Generic Name Dose Route Start Last Admin Trade Name Freq PRN Reason Stop Dose Admin Atorvastatin Calcium 40 mg 05/05/20 21:00 05/21/20 21:27 Atorvastatin Calcium 40 Mg Tablet PO 40 mg BEDTIME OPAL Administration Docusate Sodium 100 mg 05/05/20 01:14 Docusate Sodium 100 Mg Capsule PO DAILY PRN Constipation Fluoxetine HCl 20 mg 05/05/20 09:00 05/22/20 09:59 Fluoxetine Hcl Oral Solution 20 Mg/5 Ml Solution PO 20 mg DAILY [facility] Administration Cefazolin Sodium/Dextrose 2 gm in 50 mls @ 100 mls/hr 05/21/20 16:45 05/21/20 17:27 Ancef IV Infused [id number] [facility] Infusion Insulin Human Lispro 0 unit 05/05/20 11:30 05/22/20 09:49 Insulin Lispro 100 Unit/Ml 3 Ml Vial SUBCUT Not Given QIDACHS [facility] Protocol Isosorbide Mononitrate 60 mg 05/05/20 09:00 05/22/20 09:59 Isosorbide Mononitrate 60 Mg Tab.Er.24h PO 60 mg DAILY [facility] Administration Protocol Loperamide HCl 2 mg 05/15/20 13:44 05/15/20 16:53 Loperamide Hcl 2 Mg Capsule PO 2 mg Q6H PRN Administration Diarrhea Metoprolol Tartrate 25 mg 05/05/20 09:00 05/22/20 09:59 Metoprolol Tartrate 25 Mg Tablet PO 25 mg BID OPAL Administration Protocol Nystatin 1 appl 05/16/20 11:15 05/22/20 10:05 Nystatin Powder 15 Gm Bottle TOPICAL 1 appl BID [facility]AL Administration Protocol Nystatin 1 appl 05/19/20 21:00 05/22/20 10:05 Nystatin Cream 15 Gm Tube TOPICAL 1 appl BID OPAL Administration Protocol Ondansetron HCl 4 mg 05/05/20 01:14 05/17/20 06:42 Ondansetron Hcl 4 Mg/2 Ml Vial IVPUSH 4 mg Q8H PRN Administration Nausea and Vomiting Oxycodone HCl 5 mg 05/18/20 09:10 05/22/20 01:40 Oxycodone Hcl Immed Release 5 Mg Tablet PO 5 mg Q6H PRN Administration Pain, Severe (Pain Scale 7-10) Quetiapine Fumarate 25 mg 05/09/20 21:00 05/21/20 21:27 Quetiapine Fumarate 25 Mg Tablet PO 25 mg BEDTIME OPAL Administration Quetiapine Fumarate 25 mg 05/09/20 09:15 05/22/20 09:59 Quetiapine Fumarate 25 Mg Tablet PO 25 mg DAILY [facility] Administration Sodium Chloride 3 ml 05/05/20 01:14 05/22/20 09:58 0.9 % Sodium Chloride Flush 3 Ml Syringe IVFLUSH 3 ml QSHIFT OPAL Administration Vitamin D 50 mcg 05/05/20 09:00 05/21/20 08:46 Cholecalciferol (Vitamin D3) 25 Mcg Tablet PO 50 mcg DAILY [facility] Administration Labs CBC & Chem 7: 05/22/20 06:08 05/22/20 06:08 Microbiology Microbiology Results: Microbiology 05/09/20 10:20 Blood - Venous Blood Culture - Final No growth after 5 days. 05/09/20 10:20 Blood - Venous Blood Culture - Final No growth after 5 days. 05/07/20 04:01 Blood - Venous Blood Culture - Final Staphylococcus aureus 05/07/20 04:01 Blood - Venous Blood Culture - Final No growth after 5 days. 05/05/20 05:25 Blood - Venous Blood Culture - Final Staphylococcus aureus 05/05/20 05:25 Blood - Venous Blood Culture - Final Staphylococcus aureus 05/04/20 13:40 Blood - Venous Blood Culture - Final Staphylococcus aureus 05/04/20 13:36 Blood - Venous Blood Culture - Final Staphylococcus aureus Assessment and Plan (1) ESRD (end stage renal disease): Problem details: Usually gets HD on TTS Due HD today. Still has temporary HD catheter IR to place permcath tomorrow Renal Diet; Continued volume optimization on HD Vancomycin post HD- total duration of 6 weeks Procrit [id number] Units TTS; Shall follow along Status: Acute Assessment and Plan: 69-year-old female with past medical history of COPD as well as CHF who presented to the hospital with acute hypoxic respiratory failure. Patient was also recently diagnosed with COVID-19 on 04/24 Acute on chronic hypoxic respiratory failure secondary to COVID-19 pneumonia , CHF and ESRD with fluid overload Tested positive COVID-19 on 04/24, patient hypoxemia improving, continue to wean oxygen Completed decadron Not a candidate for remdesivir/plasma given when she tested positive Staph aureus bacteremia - mssa dialysis cath removed, now with temporary cath,repeat blood cx negative 05/09 changed to ancef 2gm post hd Patient will need anesthesia for placement of PermCath monitor platelets, plan for today after platelets ESRD on dialysis HD Hypoglycemia event, uncontrolled DM ISS Acute inpatient delirium resolved,Continue Seroquel b.i.d. Diastolic CHF exacerbation volume status improved, continue dialysis COPD exacerbation reoslved, completed steriod course,inhalers CAD continue Metoprolol, Plavix on hold for procedure Thrombocytopenia has been low in the past,maybe acute worsening due to COVID/bacteremia, or vanc, now on ancef, monitor DVT prophylaxis SCDs, documented history of intracranial hemorrhage
--- NOTE | 2020-05-22 12:24 | MHC.CM.PN ---
Patient is scheduled for perma cath placement today, PLT count is at 38. Patient is on 12 liters O2 with FIO2 at 50% with venturi mask. Patient will need 6 wks IV Cefazolin at HD. CM will continue to follow patient for discharge needs.
--- NOTE | 2020-05-22 12:28 | P.PNNP_ITS ---
Subjective Subjective Date of Service: 05/22/20 Interval history: Events noted; All recent data reviewed. D/W Hospitalist; Due to have Permcath Physical Exam Vital Signs: Vital Signs: Last Vital Signs Temp 97.4 F 05/22/20 08:00 Pulse 99 05/22/20 08:00 Resp 18 05/22/20 08:00 BP 110/50 L 05/22/20 08:00 Pulse Ox 90 L 05/22/20 08:00 Body Mass Index 34.2 Const: General: no acute distress Orientation/consciousness: patient oriented x3 Neck: Neck: Yes supple Resp: Auscultation: diminished lung sounds Cardio: Rate: regular rate GI: Palpation (GI): Soft to palpation Neuro: General: patient oriented x3 Objective Data Labs CBC & Chem 7: 05/22/20 06:08 05/22/20 06:08 Labs: Laboratory Results - last 24 hr 05/21/20 05/21/20 05/22/20 16:53 20:02 06:08 WBC 7.3 RBC 2.37 L Hgb 7.4 L Hct 23.3 L MCV 98.3 H MCH 31.2 MCHC 31.8 RDW 15.8 Plt Count 38 L MPV Not Reportable Immature Gran % (Auto) 0.7 H Neut % (Auto) 76.4 H Lymph % (Auto) 13.0 L [place] % (Auto) 8.3 Eos % (Auto) 1.5 Baso % (Auto) 0.1 Lymph # (Auto) 1.0 L [place] # (Auto) 0.6 Eos # (Auto) 0.1 Baso # (Auto) 0.0 Abs Immat Gran (auto) 0.05 H Absolute Neuts (auto) 5.6 Absolute Nucleated RBC 0.000 Nucleated RBC % (auto) 0.0 Smear Tech's Comments VERIFIED Sodium Potassium Chloride Carbon Dioxide Anion Gap BUN Creatinine Estim Creat Clear Calc Estimated GFR POC Glucose 113 120 H Random Glucose Fasting Glucose Calcium 05/22/20 05/22/20 06:08 08:38 WBC RBC Hgb Hct MCV MCH MCHC RDW Plt Count MPV Immature Gran % (Auto) Neut % (Auto) Lymph % (Auto) [place] % (Auto) Eos % (Auto) Baso % (Auto) Lymph # (Auto) [place] # (Auto) Eos # (Auto) Baso # (Auto) Abs Immat Gran (auto) Absolute Neuts (auto) Absolute Nucleated RBC Nucleated RBC % (auto) Smear Tech's Comments Sodium 139 Potassium 3.8 Chloride 101 Carbon Dioxide 29 Anion Gap 13 BUN 18 H Creatinine 2.43 H Estim Creat Clear Calc 21.7 Estimated GFR 20 POC Glucose 90 Random Glucose TNP Fasting Glucose 98 Calcium 7.3 L D Microbiology Microbiology Results: Microbiology 05/09/20 10:20 Blood - Venous Blood Culture - Final No growth after 5 days. 05/09/20 10:20 Blood - Venous Blood Culture - Final No growth after 5 days. 05/07/20 04:01 Blood - Venous Blood Culture - Final Staphylococcus aureus 05/07/20 04:01 Blood - Venous Blood Culture - Final No growth after 5 days. 05/05/20 05:25 Blood - Venous Blood Culture - Final Staphylococcus aureus 05/05/20 05:25 Blood - Venous Blood Culture - Final Staphylococcus aureus 05/04/20 13:40 Blood - Venous Blood Culture - Final Staphylococcus aureus 05/04/20 13:36 Blood - Venous Blood Culture - Final Staphylococcus aureus Assessment & Plan Assessment and plan (1) ESRD (end stage renal disease): Problem details: Usually gets HD on TTS Had HD yesterday. Still has temporary HD catheter IR to place permcath today Renal Diet; Continued volume optimization on HD Vancomycin post HD- total duration of 6 weeks Procrit [id number] Units TTS; Shall follow along Status: Acute Time Spent With Patient Time: Total time spent is greater than 50% in coordination of care (as documented) at patient's floor/unit and/or counseling patient:
[2020-05-22 13:24] LABS: Glucose, Whole Blood 89 mg/dL (60-115)
--- NOTE | 2020-05-22 14:25 | MHC.CLN ---
F/U PT CURRENTLY NPO WHEN DIET ADVANCED RE-START BREANNA AND ENSURE CLEAR TID TO SUPPORT WOUND HEALING FOLLOWING
--- NOTE | 2020-05-22 14:30 | IR_ITS ---
PROCEDURE: IR INSERTION OF TUNNEL CATHETER CLINICAL INFORMATION: Renal failure COMPARISON: None TECHNIQUE: Procedure and risks and benefits including bleeding, infection and pneumothorax were discussed healthcare proxy, her daughter by telephone, and informed consent was obtained. All elements of maximal sterile barrier technique followed including use of cap, mask, sterile gown, sterile gloves, a sterile full body drape and hand hygiene. Also followed skin preparation with 2% chlorhexidine for cutaneous antisepsis, and sterile ultrasound preparation with sterile gel and probe cover when applicable. The existing left dialysis catheter, neck and chest were prepped and draped in the usual sterile fashion. Has abdomen was aspirated out of both ports of the existing catheter. Skin and soft tissues of the left neck and chest were anesthetized with 1% lidocaine with epinephrine. A small incision was made in the left upper chest. Subcutaneous tunnel from the chest to the neck was anesthetized with 1% lidocaine with epinephrine. Using a tunneler, a 14.5 [place] 28 cm in length dialysis catheter was tunneled from the chest to the neck incision. No 3 5 guidewire was advanced through the existing temporary dialysis catheter into the IVC. Following serial dilatation and through a peel-away sheath, the permacath was advanced centrally. Catheter tip is at the cavoatrial junction. Both ports flushed well, had good blood return and were instilled with 2.1 mL heparin 1000 unit per mL solution. Fluoroscopy time 0.3 minutes. Anesthesia was provided by the anesthesia department. The patient received Kefzol 2 g IV during the procedure. FINDINGS: There is a left internal jugular permacath with tip projecting over the cavoatrial junction. There is mild bilateral dense airspace disease, left greater than right. There is no pneumothorax. There are changes from previous lower thoracic or upper lumbar vertebroplasty IR/IR cvc insert central tunnel IMPRESSION: Left internal jugular 14.5 [place] 28 cm in length palindrome permacath placement.
[2020-05-22] MEDS: Lidocaine HCl 1%/Epi 1:100,000 20 ML VIAL INFILTRATI (15:48)
[2020-05-22] MEDS: Heparin Sodium,Porcine 1,000 UNIT/ML VIAL 5000 UNIT IV (15:50)
--- NOTE | 2020-05-22 16:18 | HO.RADPN ---
RADIOLOGY Narrative Narrative: Left temporary dialysis catheter exchanged for a 14.5 Fr 28 cm length Palindrome permacath. Tip at cavoatrial juction. No pneumothorax. There iss dense bilateral airspace disease, left greater than right.
[2020-05-22 16:20] LABS: Glucose, Whole Blood 101 mg/dL (60-115)
[2020-05-22 18:21] LABS: Iron 52 mcg/dL (30-160); Percent Iron Saturation 60 % (15-50); Total Iron Binding Capacity 87 mcg/dL (228-428); Unsaturated Iron Binding 35 ug/dL
[2020-05-22 19:47] LABS: Glucose, Whole Blood 124 mg/dL (60-115)
[2020-05-22] MEDS: Atorvastatin Calcium 40 MG TABLET PO (22:00)
[2020-05-23] VITALS (9 sets, daily range): BP systolic 99–143; BP diastolic 51–98; PULSE 75–87; RESP 18–24; TEMP 36.2–37.1; O2SAT 90–99; BMI 33.1
[2020-05-23 06:53] LABS: Basophils Percent Auto 0.1 % (0-2); Hematocrit 22.9 % (37-47); Hemoglobin 7.3 g/dl (12.0-16.0); MANUAL DIFF FLAG SCAN; Mean Corpuscular HGB Conc 31.9 g/dl (31.0-35.0); PLT CLUMP 1; SCAN SMEAR FLAG 1
[2020-05-23 06:55] LABS: Eosinophils Absolute Auto 0.1 X10*3/uL (0.0-0.4); Eosinophils Percent Auto 1.7 % (0-4); Imm Gran Abs Auto 0.06 X10*3/uL (0.00-0.03); Imm Gran Pct Auto 0.8 % (0.0-0.4); Lymphocytes Absolute Auto 0.9 X10*3/uL (1.2-4.9); Lymphocytes Percent Auto 12.1 % (20-40); Mean Corpuscular Hemoglobin 31.6 pg (27.0-33.0); Mean Corpuscular Volume 99.1 fL (80-98); Mean Platelet Volume 13.1 fL (9.4-12.3); Monocytes Absolute Auto 0.7 X10*3/uL (0.1-1.2); Monocytes Percent Auto 9.6 % (2-11); Neutrophils Absolute Auto 5.5 X10*3/uL (2.0-8.3); Neutrophils Percent Auto 75.7 % (45-73); Red Blood Count 2.31 X10*6/uL (4.20-5.50); Red Cell Distribution Width 15.6 % (11.0-16.0); White Blood Count 7.3 X10*3/uL (4.8-10.8)
[2020-05-23 07:21] LABS: Anion Gap 18 (12-20); Blood Urea Nitrogen 24 mg/dL (9-16); Carbon Dioxide 24 mmol/L (22-29); Chloride 102 mmol/L (96-108); Creatinine Clr Calc Pharmacy 16.2; Estimated Glomerular Filt Rate 14; Glucose Fasting 108 mg/dL (60-99); Potassium 4.5 mmol/l (3.3-5.1); Sodium 139 mmol/L (135-145)
[2020-05-23 07:27] LABS: PLT ABN DIST 1; Platelet Count 51 X10*3/uL (160-400)
[2020-05-23 08:12] LABS: Glucose, Whole Blood 115 mg/dL (60-115)
[2020-05-23 08:20] LABS: SLIDE REVIEW VERIFIED
[2020-05-23] MEDS: 0.9 % Sodium Chloride Flush 3 ML SYRINGE IVFLUSH ×3 (09:18→21:23)
[2020-05-23] MEDS: Cholecalciferol (Vitamin D3) 25 MCG TABLET 50 MCG PO (09:18)
[2020-05-23] MEDS: Nystatin Powder 15 GM BOTTLE 1 APPL TOPICAL ×2 (09:18→21:23)
[2020-05-23] MEDS: Nystatin Cream 15 GM TUBE 1 APPL TOPICAL (09:18)
[2020-05-23] MEDS: FLUoxetine HCl Oral Solution 20 MG/5 ML SOLUTION PO (09:18)
[2020-05-23] MEDS: Metoprolol Tartrate 25 MG TABLET PO ×2 (09:18→21:22)
[2020-05-23] MEDS: Isosorbide Mononitrate 60 MG TAB.ER.24H PO (09:18)
[2020-05-23] MEDS: QUEtiapine Fumarate 25 MG TABLET PO ×2 (09:19→21:22)
--- NOTE | 2020-05-23 11:07 | HO.POSTANES ---
Post Anesthesia Evaluation Post Anesthesia Evaluation Vital Signs: Vital Signs Temp Pulse Resp BP Pulse Ox 05/23/20 10:57 92 05/23/20 09:18 87 143/63 H 05/23/20 08:00 97.3 F 87 23 H 143/63 H 90 L 05/23/20 04:00 97.3 F 81 18 113/55 L 91 L 05/23/20 00:00 97.8 F 75 18 99/51 L 99 Anesthesia: Monitored Mental Status: Awake Pain Control: Satisfactory Nausea/Vomiting: None Hydration: Adequate Anesthesia-Related Issues: No Anes. Related Issues
[2020-05-23 12:07] LABS: Glucose, Whole Blood 126 mg/dL (60-115)
--- NOTE | 2020-05-23 13:06 | P.PNIM_ITS ---
Subjective Subjective Date of Service: 05/23/20 Interval History: feels well Cardiovascular Cardiovascular: Reports no additional cardiovascular complaints Gastrointestinal Gastrointestinal: Reports no additional gastrointestinal complaints Physical Exam Vital Signs: Vital Signs: Last Vital Signs Temp 97.3 F 05/23/20 08:00 Pulse 87 05/23/20 09:18 Resp 23 H 05/23/20 08:00 BP 143/63 H 05/23/20 09:18 Pulse Ox 92 05/23/20 10:57 Body Mass Index 33.1 General: AO X 3, no acute distress Resp: CTA bilateral CVS: S1,S2,RRR GI: soft, non tender, non distended Neuro: motor grossly intact Psych: appropriate affect Objective Data Current Medications Generic Name Dose Route Start Last Admin Trade Name Freq PRN Reason Stop Dose Admin Atorvastatin Calcium 40 mg 05/05/20 21:00 05/22/20 22:00 Atorvastatin Calcium 40 Mg Tablet PO 40 mg BEDTIME OPAL Administration Docusate Sodium 100 mg 05/05/20 01:14 Docusate Sodium 100 Mg Capsule PO DAILY PRN Constipation Fluoxetine HCl 20 mg 05/05/20 09:00 05/23/20 09:18 Fluoxetine Hcl Oral Solution 20 Mg/5 Ml Solution PO 20 mg DAILY COUNT INCLUDES THE [facility] Administration Cefazolin Sodium/Dextrose 2 gm in 50 mls @ 100 mls/hr 05/21/20 16:45 05/21/20 17:27 Ancef IV Infused [id number] OPAL Infusion Sodium Chloride 500 mls @ 20 mls/hr 05/22/20 15:45 05/23/20 11:10 Ns IVCONT Not Given .Q24H COUNT INCLUDES THE [facility] Insulin Human Lispro 0 unit 05/05/20 11:30 05/23/20 12:04 Insulin Lispro 100 Unit/Ml 3 Ml Vial SUBCUT Not Given QIDACHS COUNT INCLUDES THE [facility] Protocol Isosorbide Mononitrate 60 mg 05/05/20 09:00 05/23/20 09:18 Isosorbide Mononitrate 60 Mg Tab.Er.24h PO 60 mg DAILY OPAL Administration Protocol Loperamide HCl 2 mg 05/15/20 13:44 05/15/20 16:53 Loperamide Hcl 2 Mg Capsule PO 2 mg Q6H PRN Administration Diarrhea Metoprolol Tartrate 25 mg 05/05/20 09:00 05/23/20 09:18 Metoprolol Tartrate 25 Mg Tablet PO 25 mg BID OPAL Administration Protocol Nystatin 1 appl 05/16/20 11:15 05/23/20 09:18 Nystatin Powder 15 Gm Bottle TOPICAL 1 appl BID OPAL Administration Protocol Nystatin 1 appl 05/19/20 21:00 05/23/20 09:18 Nystatin Cream 15 Gm Tube TOPICAL 1 appl BID OPAL Administration Protocol Ondansetron HCl 4 mg 05/05/20 01:14 05/17/20 06:42 Ondansetron Hcl 4 Mg/2 Ml Vial IVPUSH 4 mg Q8H PRN Administration Nausea and Vomiting Quetiapine Fumarate 25 mg 05/09/20 21:00 05/22/20 22:01 Quetiapine Fumarate 25 Mg Tablet PO 25 mg BEDTIME OPAL Administration Quetiapine Fumarate 25 mg 05/09/20 09:15 05/23/20 09:19 Quetiapine Fumarate 25 Mg Tablet PO 25 mg DAILY OPAL Administration Sodium Chloride 3 ml 05/05/20 01:14 05/23/20 09:18 0.9 % Sodium Chloride Flush 3 Ml Syringe IVFLUSH 3 ml QSHIFT OPAL Administration Vitamin D 50 mcg 05/05/20 09:00 05/23/20 09:18 Cholecalciferol (Vitamin D3) 25 Mcg Tablet PO 50 mcg DAILY OPAL Administration Labs CBC & Chem 7: 05/23/20 05:44 05/23/20 05:44 Microbiology Microbiology Results: Microbiology 05/09/20 10:20 Blood - Venous Blood Culture - Final No growth after 5 days. 05/09/20 10:20 Blood - Venous Blood Culture - Final No growth after 5 days. 05/07/20 04:01 Blood - Venous Blood Culture - Final Staphylococcus aureus 05/07/20 04:01 Blood - Venous Blood Culture - Final No growth after 5 days. 05/05/20 05:25 Blood - Venous Blood Culture - Final Staphylococcus aureus 05/05/20 05:25 Blood - Venous Blood Culture - Final Staphylococcus aureus 05/04/20 13:40 Blood - Venous Blood Culture - Final Staphylococcus aureus 05/04/20 13:36 Blood - Venous Blood Culture - Final Staphylococcus aureus Assessment and Plan (1) Thrombocytopenia: Status: Acute Assessment and Plan: 69-year-old female with past medical history of COPD as well as CHF who presented to the hospital with acute hypoxic respiratory failure. Patient was also recently diagnosed with COVID-19 on 04/24 Acute on chronic hypoxic respiratory failure secondary to COVID-19 pneumonia , CHF and ESRD with fluid overload Tested positive COVID-19 on 04/24, patient hypoxemia improving, continue to wean oxygen Completed decadron Not a candidate for remdesivir/plasma given when she tested positive Staph aureus bacteremia - mssa dialysis cath removed, repeat blood cx negative 05/09, now permacath replaced 05/22/2020 changed to ancef 2gm post hd ESRD on dialysis HD Hypoglycemia event, uncontrolled DM ISS Acute inpatient delirium resolved,Continue Seroquel b.i.d. Diastolic CHF exacerbation volume status improved, continue dialysis COPD exacerbation resolved, completed steroid course,inhalers CAD continue Metoprolol, Plavix on hold for procedure Thrombocytopenia has been low in the past,maybe acute worsening due to COVID/bacteremia, or vanc, now on ancef, monitor DVT prophylaxis SCDs, documented history of intracranial hemorrhage
--- NOTE | 2020-05-23 13:47 | PM.HEMONCPN ---
Medical Summary - Medical Summary Date of Service: 05/23/20 Chief complaint: thrombocytopenia Interval History Interval history: She was seen yesterday by Dr. Jaimes. Review of Systems - Constitutional Reports daytime sleepiness - Eyes Reports other - ENT Reports other - Cardiovascular Reports lightheadedness - Respiratory Reports cough - Gastrointestinal Reports abdominal pain - Genitourinary Reports absent period - Musculoskeletal Reports other - Integumentary/Breasts Skin/Breast: Reports change in skin color - Neurologic Reports behavioral changes - Psychiatric Reports abnormal sleep pattern [facility] Medical History: Medical History (Last Reviewed 05/22/20 @ 13:43 by Juanita Arguello) Bacteremia due to Staphylococcus Constipation COPD (chronic obstructive pulmonary disease) Diabetes Diastolic dysfunction Diverticulitis Dyspnea Smoking status: Smoker, status unknown Oncology Screenings - G8 Geriatric Assessment Change in food intake over past 3 months: Moderate decrease in food intake Weight loss during the last 3 months: Does not know Mobility: Bed or chair bound Neuropsychological problems: Mild dementia or depression Body Mass Index: 23 or greater Patient takes > 3 prescription drugs per day: Yes Patient's assessment of health status compared to others: As good Patient age: < 80 G8 Score: 10 G8 Risk Level: High risk for early functional decline and reduced survival. Home Medications and Allergies Current Medications: Current Medications Generic Name Dose Route Start Last Admin Trade Name Freq PRN Reason Stop Dose Admin Atorvastatin Calcium 40 mg 05/05/20 21:00 05/22/20 22:00 Atorvastatin Calcium 40 Mg Tablet PO 40 mg BEDTIME OPAL Administration Docusate Sodium 100 mg 05/05/20 01:14 Docusate Sodium 100 Mg Capsule PO DAILY PRN Constipation Fluoxetine HCl 20 mg 05/05/20 09:00 05/23/20 09:18 Fluoxetine Hcl Oral Solution 20 Mg/5 Ml Solution PO 20 mg DAILY OPAL Administration Cefazolin Sodium/Dextrose 2 gm in 50 mls @ 100 mls/hr 05/21/20 16:45 05/21/20 17:27 Ancef IV Infused [id number]@[id number] [facility] Infusion Sodium Chloride 500 mls @ 20 mls/hr 05/22/20 15:45 05/23/20 11:10 Ns IVCONT Not Given .Q24H [facility] Insulin Human Lispro 0 unit 05/05/20 11:30 05/23/20 12:04 Insulin Lispro 100 Unit/Ml 3 Ml Vial SUBCUT Not Given QIDACHS [facility] Protocol Isosorbide Mononitrate 60 mg 05/05/20 09:00 05/23/20 09:18 Isosorbide Mononitrate 60 Mg Tab.Er.24h PO 60 mg DAILY OPAL Administration Protocol Loperamide HCl 2 mg 05/15/20 13:44 05/15/20 16:53 Loperamide Hcl 2 Mg Capsule PO 2 mg Q6H PRN Administration Diarrhea Metoprolol Tartrate 25 mg 05/05/20 09:00 05/23/20 09:18 Metoprolol Tartrate 25 Mg Tablet PO 25 mg BID [facility] Administration Protocol Nystatin 1 appl 05/16/20 11:15 05/23/20 09:18 Nystatin Powder 15 Gm Bottle TOPICAL 1 appl BID [facility] Administration Protocol Nystatin 1 appl 05/19/20 21:00 05/23/20 09:18 Nystatin Cream 15 Gm Tube TOPICAL 1 appl BID [facility] Administration Protocol Ondansetron HCl 4 mg 05/05/20 01:14 05/17/20 06:42 Ondansetron Hcl 4 Mg/2 Ml Vial IVPUSH 4 mg Q8H PRN Administration Nausea and Vomiting Quetiapine Fumarate 25 mg 05/09/20 21:00 05/22/20 22:01 Quetiapine Fumarate 25 Mg Tablet PO 25 mg BEDTIME OPAL Administration Quetiapine Fumarate 25 mg 05/09/20 09:15 05/23/20 09:19 Quetiapine Fumarate 25 Mg Tablet PO 25 mg DAILY [facility] Administration Sodium Chloride 3 ml 05/05/20 01:14 05/23/20 09:18 0.9 % Sodium Chloride Flush 3 Ml Syringe IVFLUSH 3 ml QSHIFT [facility] Administration Vitamin D 50 mcg 05/05/20 09:00 05/23/20 09:18 Cholecalciferol (Vitamin D3) 25 Mcg Tablet PO 50 mcg DAILY OPAL Administration Home Medications Medication Instructions Recorded Confirmed Type atorvastatin 40 mg PO BEDTIME 04/24/20 05/04/20 History bumetanide 4 mg PO SUTUTHSA@0800,1700 04/24/20 05/04/20 History cholecalciferol (vitamin D3) 50 mcg PO QAM 04/24/20 05/04/20 History clopidogrel 75 mg PO BEDTIME 04/24/20 05/04/20 History fluoxetine 5 ml PO DAILY 04/24/20 05/04/20 History isosorbide mononitrate 60 mg PO QAM 04/24/20 05/04/20 History metoprolol tartrate 25 mg PO BID 04/24/20 05/04/20 History lorazepam 0.5 mg PO DAILY PRN 05/04/20 05/04/20 History quetiapine 25 mg PO BEDTIME PRN 05/04/20 05/04/20 History umeclidinium-vilanterol [Anoro 1 puff INHALATION DAILY 05/04/20 05/04/20 History Ellipta] Allergies Allergy/AdvReac Type Severity Reaction Status Date / Time Penicillins Allergy Severe Anaphylaxis, Verified 05/13/20 12:33 hives acetaminophen [From TYLENOL] Allergy Unknown Unknown Verified 05/13/20 12:36 aspirin [ASPIRIN] Allergy Unknown rash, Verified 05/13/20 12:33 stomach upset diazepam [From VALIUM] Allergy Unknown RESP Verified 04/24/20 20:22 FAILURE penicillin V Allergy Unknown edema Verified 11/21/19 00:00 metformin [Metformin] AdvReac Mild DIARRHEA Verified 04/24/20 20:22 Exam Vital signs: Vital Signs Temp 97.1 F 05/23/20 12:00 Pulse 86 05/23/20 12:00 Resp 24 H 05/23/20 12:00 BP 132/98 H 05/23/20 12:00 Pulse Ox 91 L 05/23/20 12:00 Intake & Output 05/22/20 05/23/20 05/23/20 18:59 06:59 18:59 Intake Total 0 / 580 580 / 580 180 / 180 Balance 0 / 580 580 / 580 180 / 180 Intake: Intake, Oral Amount 580 / 580 180 / 180 Intake (Blood Product) Amount 0 / 0 Plt Aph Pas Pathreduced([id number]) 0 / 0 Unit [id number] Other: NPO Yes Breakfast % Eaten 25% Dinner % Eaten 25% Number of Incontinent Voids 3 Weight 82.2 kg Weight 82.2 kg Body Mass Index 33.1 - Constitutional Present: no acute distress - Routine HEENT Exam Head: Present: atraumatic - Routine Neck Exam Present: full ROM - Routine Cardiovascular Exam Cardiovascular: Present: RRR - Routine Abdominal Exam Present: diminished bowel sounds - Routine Rectal Exam Patient deferred: visual exam - Routine Extremities Exam Present: nontender - Routine Skin Exam Present: dry - Routine Neurological Exam Present: oriented X3 Data - Labs CBC & Chem 7: 05/23/20 05:44 05/23/20 05:44 Labs: 05/04/20 13:26 Albuterol Sulfate (0.083%) [Ventolin (0.083%)] 5 mg INHALE ONCE ONE Consult Rx Perform Med Rec 1 each MISCELLANE ONCE PRN dexAMETHasone sod phosphate [Decadron] 4 mg IVPUSH ONCE ONE ondansetron HCL [Zofran] 4 mg IVPUSH ONCE ONE 05/04/20 13:27 ECG 12 lead EKG Stat EKG Documentation DIRECTED 05/04/20 13:28 XR chest 1V Stat 05/04/20 13:36 Troponin-I High Sensitivity Stat 05/04/20 13:37 B Type Natriuretic Peptide Stat Complete Blood Count Man Dif Stat Partial Thromboplastin Time Stat Prothrombin Time INR Stat 05/04/20 13:40 Blood Culture X2 [BC] Stat 05/04/20 13:56 Lactic Acid Stat 05/04/20 14:32 Ertapenem Sodium [INVanz] 0.5 gm 0.9 % Sodium Chloride [Ns] 50 ml IV ONCE 05/04/20 14:40 Ertapenem Sodium [INVanz] 1 gm .ROUTE .STK-MED ONE 05/04/20 14:49 Furosemide [Lasix] 40 mg IVPUSH ONCE ONE 05/04/20 14:57 Basic Metabolic Panel Stat Ferritin Stat Lactate Dehydrogenase Stat Lipase Stat Liver Panel Stat Magnesium Stat 05/04/20 16:29 Insulin Regular, Human [Humulin R] 10 unit IVPUSH ONCE ONE 05/04/20 16:30 Insulin Regular/NS [Myxredlin] 100 unit in 100 ml IVCONT 8 mls/hr 05/04/20 16:51 Albuterol Sulfate (0.083%) [Ventolin (0.083%)] 5 mg INHALE ONCE ONE 05/04/20 17:42 Glucose, Whole Blood Routine 05/04/20 17:49 Glucose, Whole Blood Routine 05/04/20 18:26 Glucose, blood poc .Now 05/04/20 18:40 Glucose, Whole Blood Routine 05/04/20 19:29 Glucose, blood poc .Now 05/04/20 19:34 Glucose, Whole Blood Routine 05/04/20 19:45 Insulin Regular, Human [Humulin R] 10 unit IVPUSH ONCE ONE 05/04/20 20:13 Glucose, Whole Blood Routine 05/04/20 20:45 Glucose, blood poc .Now 05/04/20 21:21 Glucose, Whole Blood Routine 05/04/20 22:26 Glucose, Whole Blood Routine 05/04/20 23:41 Glucose, Whole Blood Routine 05/04/20 23:43 Transfer Order Routine 05/05/20 01:14 LORazepam [Ativan] 0.5 mg PO DAILY PRN QUEtiapine Fumarate [SEROquel] 25 mg PO BEDTIME PRN 05/05/20 01:37 Glucose, Whole Blood Routine 05/05/20 04:48 Consult Rx Vancomycin Dosing 1 each MISCELLANE DAILY PRN 05/05/20 05:00 vancomycin HCL 750 mg vancomycin HCL 500 mg 0.9 % Sodium Chloride [Ns] 250 ml IV Q24H 05/05/20 05:21 cefTRIAXone sodium [Rocephin] 1 gm 0.9 % Sodium Chloride [Ns] 50 ml IV NOW 05/05/20 05:25 Basic Metabolic Panel Routine Complete Blood Count Man Dif Routine Blood Culture X2 [BC] Stat 05/05/20 05:26 cefTRIAXone sodium [Rocephin] 1 gm .ROUTE .STK-MED ONE 05/05/20 05:30 vancomycin HCL 1,000 mg 0.9 % Sodium Chloride [Ns] 250 ml IV ONCE 05/05/20 05:40 Legionella Ag Urine Stat Strep Pneumo Ag urine Stat 05/05/20 06:11 vancomycin HCL 1,000 mg .ROUTE .STK-MED ONE 05/05/20 06:15 vancomycin HCL 1,000 mg .ROUTE .STK-MED ONE 05/05/20 08:06 Glucose, Whole Blood Routine 05/05/20 09:00 Furosemide [Lasix] 40 mg IVPUSH BID@0900,1800 dexAMETHasone sod phosphate [Decadron] 4 mg IVPUSH DAILY umeclidinium-vilanterol [Anoro Ellipta] 1 puff INHALE DAILY 05/05/20 Breakfast Diabetic Diet 05/05/20 11:06 Glucose, Whole Blood Routine 05/05/20 11:49 Vancomycin Random Stat 05/05/20 12:05 Insulin Glargine,Hum.rec.anlog [Lantus] 8 unit SUBCUT DAILY 05/05/20 13:00 CA echo transthoracic complete Routine 05/05/20 15:06 Airloss Bed ONCE 05/05/20 Lunch Diabetic Diet 05/05/20 16:22 Glucose, Whole Blood Routine 05/05/20 20:17 Glucose, Whole Blood Routine 05/05/20 21:00 Clopidogrel Bisulfate [Plavix] 75 mg PO BEDTIME 05/06/20 03:07 Consult Rx Vancomycin Dosing 1 each MISCELLANE DAILY PRN 05/06/20 03:15 vancomycin HCL 750 mg vancomycin HCL 500 mg 0.9 % Sodium Chloride [Ns] 250 ml IV Q24H 05/06/20 03:45 vancomycin HCL 750 mg vancomycin HCL 500 mg 0.9 % Sodium Chloride [Ns] 250 ml IV Q24H 05/06/20 04:02 vancomycin HCL 500 mg IV .STK-MED ONE vancomycin HCL 750 mg IV .STK-MED ONE 05/06/20 04:31 Prochlorperazine Edisylate [Compazine] 5 mg IVPUSH ONCE ONE 05/06/20 06:00 cefTRIAXone sodium [Rocephin] 1 gm 0.9 % Sodium Chloride [Ns] 50 ml IV Q24H 05/06/20 06:04 Basic Metabolic Panel DAILY@0600 Complete Blood Count no Diff DAILY@0600 Liver Panel Routine Vancomycin Random Routine 05/06/20 06:30 cefTRIAXone sodium [Rocephin] 1 gm .ROUTE .STK-MED ONE 05/06/20 07:32 Glucose, Whole Blood Routine 05/06/20 10:50 Glucose, Whole Blood Routine 05/06/20 13:42 Vancomycin Trough Routine 05/06/20 Lunch Diabetic Diet 05/06/20 16:26 Glucose, Whole Blood Routine 05/06/20 17:00 Bumetanide [Bumex] 2 mg PO BID@0800,1700 05/06/20 17:19 Vancomycin Random Urgent 05/06/20 18:41 High Flow CONT 05/06/20 20:08 LORazepam [Ativan] 0.5 mg IVPUSH ONCE ONE 05/06/20 20:09 Glucose, Whole Blood Routine 05/07/20 04:01 Basic Metabolic Panel DAILY@0600 Complete Blood Count no Diff DAILY@0600 Prothrombin Time INR DAILY@0600 Vancomycin Random Routine Blood Culture X2 [BC] Routine 05/07/20 07:31 Glucose, Whole Blood Routine 05/07/20 09:40 Complete Blood Count no Diff Routine 05/07/20 11:03 Glucose, Whole Blood Routine 05/07/20 11:35 Lidocaine HCl 1 % MPF [Xylocaine 1 % MPF] 5 ml .ROUTE .STK-MED ONE 05/07/20 13:17 IR cvc remov tunnel wo prt/supervisor gear repair Routine 05/07/20 14:07 Lidocaine HCl 1 % MPF [Xylocaine 1 % MPF] 5 ml .ROUTE .STK-MED ONE 05/07/20 14:44 Midazolam HCl/PF [Versed] 2 mg .ROUTE .STK-MED ONE Naloxone HCl [Narcan] 0.4 mg .ROUTE .STK-MED ONE fentaNYL citrate/PF [Sublimaze] 50 mcg .ROUTE .STK-MED ONE flumazeniL [Romazicon] 0.05 mg .ROUTE .STK-MED ONE 05/07/20 16:16 Glucose, Whole Blood Routine 05/07/20 16:29 0.9 % Sodium Chloride [Ns] 1,000 ml IV 999 mls/hr Transfer Order Routine 05/07/20 17:32 Transfer Order Routine 05/07/20 17:45 Doxycycline Hyclate [Vibramycin] 100 mg 0.9 % Sodium Chloride [Ns] 250 ml IV Q12H 05/07/20 17:59 Doxycycline Hyclate [Vibramycin] 100 mg IV .STK-MED ONE 05/07/20 18:35 dexAMETHasone sod phosphate [Decadron] 6 mg IVPUSH DAILY 05/07/20 20:18 Glucose, Whole Blood Routine 05/07/20 21:00 Insulin Glargine,Hum.rec.anlog [Lantus] 8 unit SUBCUT BEDTIME 05/08/20 05:10 Doxycycline Hyclate [Vibramycin] 100 mg IV .STK-MED ONE 05/08/20 05:48 Basic Metabolic Panel DAILY@0600 Complete Blood Count no Diff DAILY@0600 05/08/20 07:48 Glucose, Whole Blood Routine 05/08/20 11:47 Glucose, Whole Blood Routine 05/08/20 16:46 Glucose, Whole Blood Routine 05/08/20 16:58 Doxycycline Hyclate [Vibramycin] 100 mg IV .STK-MED ONE 05/08/20 20:17 Glucose, Whole Blood Routine 05/09/20 ECG 12 lead EKG Stat 05/09/20 05:02 Doxycycline Hyclate [Vibramycin] 100 mg IV .STK-MED ONE 05/09/20 06:26 Basic Metabolic Panel DAILY@0600 Complete Blood Count no Diff DAILY@0600 05/09/20 07:52 Glucose, Whole Blood Routine 05/09/20 10:20 Blood Culture X2 [BC] Stat 05/09/20 11:59 Glucose, Whole Blood Routine 05/09/20 16:54 Glucose, Whole Blood Routine 05/09/20 17:28 Doxycycline Hyclate [Vibramycin] 100 mg IV .STK-MED ONE 05/09/20 20:57 Glucose, Whole Blood Routine 05/09/20 23:09 EKG Documentation DIRECTED 05/09/20 23:32 Haloperidol Lactate [Haldol] 2 mg IVPUSH ONCE ONE 05/10/20 04:40 Doxycycline Hyclate [Vibramycin] 100 mg IV .STK-MED ONE 05/10/20 06:02 Basic Metabolic Panel DAILY@0600 05/10/20 08:20 Glucose, Whole Blood Routine 05/10/20 10:25 LORazepam [Ativan] 0.5 mg IVPUSH ONCE ONE 05/10/20 12:09 Glucose, Whole Blood Routine 05/10/20 16:14 Glucose, Whole Blood Routine 05/10/20 17:06 Doxycycline Hyclate [Vibramycin] 100 mg IV .STK-MED ONE 05/10/20 20:28 Glucose, Whole Blood Routine 05/10/20 20:59 QUEtiapine Fumarate [SEROquel] 25 mg PO ONCE ONE 05/11/20 05:22 Basic Metabolic Panel DAILY@0600 05/11/20 05:40 Doxycycline Hyclate [Vibramycin] 100 mg IV .STK-MED ONE 05/11/20 08:06 Glucose, Whole Blood Routine 05/11/20 11:53 Glucose, Whole Blood Routine 05/11/20 15:52 Glucose, Whole Blood Routine 05/11/20 17:00 Doxycycline Hyclate [Vibramycin] 100 mg IV .STK-MED ONE 05/11/20 20:15 Glucose, Whole Blood Routine 05/11/20 21:00 Sodium Bicarbonate [Neut] 1,300 mg PO TID 05/12/20 IR us guide venous access Routine XR chest 1V Stat 05/12/20 05:39 Basic Metabolic Panel DAILY@0600 Complete Blood Count no Diff DAILY@0600 Liver Panel Routine Prothrombin Time INR DAILY@0600 05/12/20 05:54 Doxycycline Hyclate [Vibramycin] 100 mg IV .STK-MED ONE 05/12/20 07:31 Glucose, Whole Blood Routine 05/12/20 08:04 Add Laboratory Test Urgent 05/12/20 08:50 Calcium Gluconate/NaCl,Iso-Osm [Calcium Gluconate] 2 gm in 100 ml IV ONCE 05/12/20 Breakfast NPO Diet 05/12/20 11:16 Glucose, Whole Blood Routine 05/12/20 13:00 IR cvc insert non tunnel Routine propofoL [Diprivan] 200 mg IVPUSH .STK-MED ONE 05/12/20 13:01 Phenylephrine HCL 10 mg .ROUTE .STK-MED ONE 05/12/20 13:46 Heparin Sodium,Porcine 1,000 unit IV .STK-MED ONE Lidocaine HCl 1 % MPF [Xylocaine 1 % MPF] 5 ml .ROUTE .STK-MED ONE 05/12/20 15:21 Lidocaine HCl 1 % MPF [Xylocaine 1 % MPF] 10 ml SUBCUT ONCE ONE 05/12/20 17:04 Glucose, Whole Blood Routine 05/12/20 20:12 Doxycycline Hyclate [Vibramycin] 100 mg IV .STK-MED ONE 05/12/20 20:44 Glucose, Whole Blood Routine 05/13/20 05:34 Basic Metabolic Panel DAILY@0600 05/13/20 05:50 Doxycycline Hyclate [Vibramycin] 100 mg IV .STK-MED ONE 05/13/20 06:59 Glucose, Whole Blood Routine 05/13/20 07:19 Glucose, Whole Blood Routine 05/13/20 07:58 Glucose, Whole Blood Routine 05/13/20 11:16 Glucose, Whole Blood Routine 05/13/20 13:00 Glucose, Whole Blood Routine 05/13/20 16:45 Glucose, Whole Blood Routine 05/13/20 17:56 Doxycycline Hyclate [Vibramycin] 100 mg IV .STK-MED ONE 05/13/20 21:36 Glucose, Whole Blood Routine 05/14/20 04:59 Doxycycline Hyclate [Vibramycin] 100 mg IV .STK-MED ONE 05/14/20 05:31 Basic Metabolic Panel DAILY@0600 05/14/20 08:02 Glucose, Whole Blood Routine 05/14/20 Breakfast Diabetic Diet 05/14/20 13:06 vancomycin HCL 750 mg IV .STK-MED ONE 05/14/20 14:00 vancomycin HCL 750 mg 0.9 % Sodium Chloride [Ns] 250 ml IV Q48H 05/14/20 Lunch Diabetic Diet 05/14/20 16:12 Glucose, Whole Blood Routine 05/14/20 20:35 Glucose, Whole Blood Routine 05/15/20 06:56 Complete Blood Count no Diff DAILY@0600 05/15/20 07:26 Basic Metabolic Panel DAILY@0600 05/15/20 07:44 Glucose, Whole Blood Routine 05/15/20 12:00 CDiff with Reflex to PCR Routine 05/15/20 12:05 Glucose, Whole Blood Routine 05/15/20 16:04 Glucose, Whole Blood Routine 05/15/20 20:08 Glucose, Whole Blood Routine 05/16/20 07:37 Glucose, Whole Blood Routine 05/16/20 10:51 Basic Metabolic Panel DAILY@0600 Vancomycin Random Routine 05/16/20 12:39 Glucose, Whole Blood Routine 05/16/20 13:26 vancomycin HCL 750 mg IV .STK-MED ONE 05/16/20 16:01 Glucose, Whole Blood Routine 05/16/20 20:27 Glucose, Whole Blood Routine 05/17/20 00:27 Prochlorperazine Edisylate [Compazine] 5 mg IVPUSH ONCE ONE 05/17/20 06:38 Basic Metabolic Panel DAILY@0600 05/17/20 08:06 Glucose, Whole Blood Routine 05/17/20 12:08 Glucose, Whole Blood Routine 05/17/20 16:13 Glucose, Whole Blood Routine 05/17/20 20:30 Glucose, Whole Blood Routine 05/18/20 00:40 Glucose, Whole Blood Routine 05/18/20 01:52 traMADoL HCL [Ultram] 50 mg PO ONCE ONE 05/18/20 06:03 Basic Metabolic Panel DAILY@0600 Complete Blood Count no Diff DAILY@0600 05/18/20 09:10 oxyCODONE HCl Immed Release [Roxicodone] 5 mg PO Q6H PRN 05/18/20 09:23 Glucose, Whole Blood Routine 05/18/20 Breakfast Diabetic Diet NPO Diet 05/18/20 11:29 Glucose, Whole Blood Routine 05/18/20 11:59 propofoL [Diprivan] 200 mg IVPUSH .STK-MED ONE 05/18/20 12:35 Glucose, Whole Blood Routine 05/18/20 Lunch Diabetic Diet 05/18/20 16:37 Glucose, Whole Blood Routine 05/18/20 20:38 Glucose, Whole Blood Routine 05/19/20 08:19 Basic Metabolic Panel DAILY@0600 Vancomycin Random Routine 05/19/20 09:31 Glucose, Whole Blood Routine 05/19/20 11:14 Glucose, Whole Blood Routine 05/19/20 12:47 Potassium Chloride ER [Klor-con] 40 meq PO ONCE ONE 05/19/20 16:32 Glucose, Whole Blood Routine 05/19/20 16:45 vancomycin HCL 1,000 mg 0.9 % Sodium Chloride [Ns] 250 ml IV TuThSa@1645 vancomycin HCL 750 mg 0.9 % Sodium Chloride [Ns] 250 ml IV TuThSa@1645 05/19/20 17:32 vancomycin HCL 1,000 mg .ROUTE .STK-MED ONE 05/19/20 18:50 CDiff with Reflex to PCR Routine 05/19/20 20:34 Glucose, Whole Blood Routine 05/20/20 05:08 Basic Metabolic Panel Routine Complete Blood Count Auto Diff Routine Lactate Dehydrogenase Routine 05/20/20 07:08 Vitamin B12 and Folate Routine 05/20/20 07:29 Glucose, Whole Blood Routine 05/20/20 09:07 Pheresis Platelets Routine Type and Screen Routine 05/20/20 Breakfast NPO Diet 05/20/20 11:56 Glucose, Whole Blood Routine 05/20/20 15:08 Add Laboratory Test Routine 05/20/20 15:11 Complete Blood Count no Diff Stat 05/20/20 15:48 Glucose, Whole Blood Routine 05/20/20 19:39 Glucose, Whole Blood Routine 05/21/20 07:34 Glucose, Whole Blood Routine 05/21/20 08:02 BMP [Basic Metabolic Panel Fasting] Routine Basic Metabolic Panel DAILY@0600 Complete Blood Count Auto Diff Routine Vancomycin Random Routine 05/21/20 11:11 Glucose, Whole Blood Routine 05/21/20 Lunch Diabetic Diet 05/21/20 16:53 Glucose, Whole Blood Routine 05/21/20 20:02 Glucose, Whole Blood Routine 05/22/20 06:08 BMP [Basic Metabolic Panel Fasting] Routine Basic Metabolic Panel DAILY@0600 Complete Blood Count Auto Diff Routine IRON PROFILE Routine SLIDE REVIEW Routine 05/22/20 08:38 Glucose, Whole Blood Routine 05/22/20 Breakfast NPO Diet 05/22/20 13:20 Glucose, Whole Blood Routine 05/22/20 13:54 Atropine Sulfate 1 mg .ROUTE .STK-MED ONE EPINEPHrine [Adrenalin] 1 mg IVPUSH .STK-MED ONE Phenylephrine HCL 1,000 mcg IVPUSH .STK-MED ONE Succinylcholine Chloride [Quelicin] 100 mg IVPUSH .STK-MED ONE ePHEDrine sulfate 50 mg .ROUTE .STK-MED ONE propofoL [Diprivan] 200 mg IVPUSH .STK-MED ONE 05/22/20 13:55 Ketamine HCl/NS 50 mg IVPUSH .STK-MED ONE 05/22/20 14:16 Heparin Sodium,Porcine 1,000 unit IV .STK-MED ONE Lidocaine HCl 1%/Epi 1:100,000 [Xylocaine 1 %-Epi 1:100,000] 20 ml .ROUTE .STK-MED ONE 05/22/20 14:17 Heparin Sodium (Porcine)/NS/PF 1,000 unit in 500 ml IV As directed 05/22/20 14:30 IR cvc insert central tunnel Routine 05/22/20 14:46 ceFAZolin Sodium/Dextrose,Iso [Ancef] 2 gm in 50 ml .ROUTE As directed 05/22/20 15:07 Heparin Sodium,Porcine 1,000 unit IV .STK-MED ONE 05/22/20 Lunch Low Sodium Diet 05/22/20 15:48 Lidocaine HCl 1%/Epi 1:100,000 [Xylocaine 1 %-Epi 1:100,000] 20 ml INFILTRATI ONCE ONE 05/22/20 15:49 Heparin Sodium,Porcine 5,000 unit IV ONCE ONE 05/22/20 16:14 Glucose, Whole Blood Routine 05/22/20 18:07 Add Laboratory Test Urgent 05/22/20 19:42 Glucose, Whole Blood Routine 05/23/20 05:44 BMP [Basic Metabolic Panel Fasting] Routine Complete Blood Count Auto Diff Routine SLIDE REVIEW Routine 05/23/20 08:08 Glucose, Whole Blood Routine 05/23/20 11:59 Glucose, Whole Blood Routine Laboratory Last Values WBC 7.3 X10*3/uL (4.8-10.8) 05/23/20 05:44 RBC 2.31 X10*6/uL (4.20-5.50) L 05/23/20 05:44 Hgb 7.3 g/dl (12.0-16.0) L 05/23/20 05:44 Hct 22.9 % (37-47) L 05/23/20 05:44 MCV 99.1 fL (80-98) H 05/23/20 05:44 MCH 31.6 pg (27.0-33.0) 05/23/20 05:44 MCHC 31.9 g/dl (31.0-35.0) 05/23/20 05:44 RDW 15.6 % (11.0-16.0) 05/23/20 05:44 Plt Count 51 X10*3/uL (160-400) L D 05/23/20 05:44 MPV 13.1 fL (9.4-12.3) H 05/23/20 05:44 Immature Gran % (Auto) 0.8 % (0.0-0.4) H 05/23/20 05:44 Neut % (Auto) 75.7 % (45-73) H 05/23/20 05:44 Lymph % (Auto) 12.1 % (20-40) L 05/23/20 05:44 [place] % (Auto) 9.6 % (2-11) 05/23/20 05:44 Eos % (Auto) 1.7 % (0-4) 05/23/20 05:44 Baso % (Auto) 0.1 % (0-2) 05/23/20 05:44 Lymph # (Auto) 0.9 X10*3/uL (1.2-4.9) L 05/23/20 05:44 [place] # (Auto) 0.7 X10*3/uL (0.1-1.2) 05/23/20 05:44 Eos # (Auto) 0.1 X10*3/uL (0.0-0.4) 05/23/20 05:44 Baso # (Auto) 0.0 X10*3/uL (0.0-0.2) 05/23/20 05:44 Abs Immat Gran (auto) 0.06 X10*3/uL (0.00-0.03) H 05/23/20 05:44 Absolute Neuts (auto) 5.5 X10*3/uL (2.0-8.3) 05/23/20 05:44 Absolute Nucleated RBC 0.000 X10*3/uL (0.0-0.012) 05/23/20 05:44 Nucleated RBC % (auto) 0.0 /100WBC (0.0-0.2) 05/23/20 05:44 Neutrophils % (Manual) 68 % (45-73) 05/05/20 05:25 Band Neutrophils % 12 % (3-5) H 05/05/20 05:25 Lymphocytes % (Manual) 9 % (20-40) L 05/05/20 05:25 Monocytes % (Manual) 11 % (2-11) 05/05/20 05:25 Abs Neuts (Manual) 4.1 X10*3/uL (2.2-7.9) 05/05/20 05:25 Lymphocytes # (Manual) 0.5 X10*3/uL (0.6-4.8) L 05/05/20 05:25 Monocytes # (Manual) 0.6 X10*3/uL (0.0-1.2) 05/05/20 05:25 Nucleated RBCs 1 /100WBC (0-0) H 05/04/20 13:37 Platelet Estimate DECREASED (NORMAL) 05/05/20 05:25 Plt Morphology Comment NORMAL 05/05/20 05:25 RBC Morphology NOTED 05/05/20 05:25 Polychromasia 1+ 05/05/20 05:25 Microcytosis 1+ 05/04/20 13:37 Macrocytosis 1+ 05/05/20 05:25 Spherocytes 1+ 05/05/20 05:25 Tear Drop Cells 1+ 05/05/20 05:25 Ovalocytes 1+ 05/05/20 05:25 Sury Cells 1+ 05/04/20 13:37 Acanthocytes (Spur) 1+ 05/05/20 05:25 Schistocytes 1+ 05/04/20 13:37 Smear Tech's Comments VERIFIED 05/23/20 05:44 Smear Path Review SEE NOTE 05/04/20 13:37 PT 11.7 SEC (10.8-13.0) 05/12/20 05:39 INR 1.0 (0.9-1.1) 05/12/20 05:39 APTT 32.4 SEC (24.1-38.0) 05/04/20 13:37 Sodium 139 mmol/L (135-145) 05/23/20 05:44 Potassium 4.5 mmol/l (3.3-5.1) 05/23/20 05:44 Chloride 102 mmol/L (96-108) 05/23/20 05:44 Carbon Dioxide 24 mmol/L (22-29) 05/23/20 05:44 Anion Gap 18 (12-20) 05/23/20 05:44 BUN 24 mg/dL (9-16) H 05/23/20 05:44 Creatinine 3.21 mg/dL (0.5-1.4) H 05/23/20 05:44 Estim Creat Clear Calc 16.2 05/23/20 05:44 Estimated GFR 14 05/23/20 05:44 POC Glucose 126 mg/dL (60-115) H 05/23/20 11:59 Random Glucose Cancelled 05/23/20 05:44 Fasting Glucose 108 mg/dL (60-99) H 05/23/20 05:44 Lactic Acid 2.0 mmol/L (0.5-2.0) 05/04/20 13:56 Calcium 7.0 mg/dL (8.4-10.2) L 05/23/20 05:44 Magnesium 2.2 mg/dL (1.6-2.6) 05/04/20 14:57 Iron 52 mcg/dL (30-160) 05/22/20 06:08 TIBC 87 mcg/dL (228-428) L 05/22/20 06:08 % Saturation 60 % (15-50) H 05/22/20 06:08 Unsat Iron Binding 35 ug/dL 05/22/20 06:08 Ferritin 5660 ng/mL (10-250) H 05/04/20 14:57 Total Bilirubin 0.6 mg/dL (0.0-1.0) 05/12/20 05:39 Direct Bilirubin 0.3 mg/dL (0.0-0.5) 05/12/20 05:39 AST 57 U/L (5-31) H 05/12/20 05:39 ALT 76 U/L (0-31) H 05/12/20 05:39 Alkaline Phosphatase 215 U/L (39-117) H D 05/12/20 05:39 Lactate Dehydrogenase 352 U/L (122-220) H 05/20/20 05:08 Troponin I High Sens 49.0 ng/L (<3.5-17.0) H 05/04/20 13:36 B-Natriuretic Peptide 1054 pg/mL (<100) H 05/04/20 13:37 Total Protein 5.8 g/dL (6.5-8.0) L 05/12/20 05:39 Albumin 2.2 g/dL (3.5-5.0) L 05/12/20 05:39 Lipase 92 U/L (8-78) H 05/04/20 14:57 Vitamin B12 > 2000 pg/mL (200-900) H 05/20/20 07:08 Folate 4.8 ng/mL (> or = 4.0) 05/20/20 07:08 Vancomycin Trough 30.6 mcg/mL (10.0-20.0) H* 05/06/20 13:42 Random Vancomycin 31.0 mcg/mL (15-20) H* 05/21/20 08:02 C. difficile Toxin A&B Negative (Negative) 05/19/20 18:50 C. difficile Antigen Negative (Negative) 05/19/20 18:50 C. difficile Interpret SEE NOTE 05/19/20 18:50 Ur L.pneumophila Ag Not Detected (Not Detected) 05/05/20 05:40 Ur Strep pneumoniae Ag Not Detected (Not Detected) 05/05/20 05:40 Blood Type O Positive 05/20/20 09:07 Antibody Screen NEGATIVE 05/20/20 09:07 - Imaging Radiologist's impression: ITS Impressions Chest X-Ray 05/04/20 13:28 IMPRESSION: Low lung volumes. Mild vascular congestion with some early airspace opacity right upper lobe and left infrahilar region. No overt effusion. Tunnelled Catheter Removal 05/07/20 13:17 IMPRESSION: Successful removal of tunneled right permacatheter. Fluoroscopy time: 4.5 minutes. Dose area product: 1034 cGy-cm2 Chest X-Ray 05/12/20 00:00 IMPRESSION: 12.5 Cypriot 20 cm in length temporary left internal jugular Mahurkar dialysis catheter placement. EXAMINATION: Chest x-ray CLINICAL INFORMATION: Renal failure. Post portable left internal jugular dialysis catheter placement COMPARISON: None. TECHNIQUE: AP portable chest FINDINGS: The cardiac silhouette is enlarged but stable. There is bilateral multilobar airspace disease that appears unchanged. There is a new left internal jugular dialysis catheter with tip projecting over the caval atrial junction. There is no pleural effusion or pneumothorax. IMPRESSION: Left internal jugular dialysis catheter projects over the cavoatrial junction. No pneumothorax. Guidance Ultrasound 05/12/20 00:00 IMPRESSION: 12.5 Cypriot 20 cm in length temporary left internal jugular Mahurkar dialysis catheter placement. EXAMINATION: Chest x-ray CLINICAL INFORMATION: Renal failure. Post portable left internal jugular dialysis catheter placement COMPARISON: None. TECHNIQUE: AP portable chest FINDINGS: The cardiac silhouette is enlarged but stable. There is bilateral multilobar airspace disease that appears unchanged. There is a new left internal jugular dialysis catheter with tip projecting over the caval atrial junction. There is no pleural effusion or pneumothorax. IMPRESSION: Left internal jugular dialysis catheter projects over the cavoatrial junction. No pneumothorax. Insertion Non-Tunneled Catheter 05/12/20 13:00 IMPRESSION: 12.5 Cypriot 20 cm in length temporary left internal jugular Mahurkar dialysis catheter placement. EXAMINATION: Chest x-ray CLINICAL INFORMATION: Renal failure. Post portable left internal jugular dialysis catheter placement COMPARISON: None. TECHNIQUE: AP portable chest FINDINGS: The cardiac silhouette is enlarged but stable. There is bilateral multilobar airspace disease that appears unchanged. There is a new left internal jugular dialysis catheter with tip projecting over the caval atrial junction. There is no pleural effusion or pneumothorax. IMPRESSION: Left internal jugular dialysis catheter projects over the cavoatrial junction. No pneumothorax. Insertion Tunneled Catheter 05/22/20 14:30 IMPRESSION: Left internal jugular 14.5 Cypriot 28 cm in length palindrome permacath placement. Progress Note: A/P - Time Spent With Patient Total time spent is greater than 50% in coordination of care (as documented) at patient's floor/unit and/or counseling patient: She remains stable. Will keep[ the platelet count over 30,000. less than 15 minutes
[2020-05-23 16:35] LABS: Glucose, Whole Blood 129 mg/dL (60-115)
[2020-05-23] MEDS: ceFAZolin Sodium/Dextrose,Iso 2 GM/50 ML PIGGYBACK IV (18:07)
--- NOTE | 2020-05-23 18:35 | PC.NURSE ---
Pt italian speaking, oriented and vague. Pt repo q 2 hr, barrier cream applied. Pt went to dialysis for short amount of time. Oximizer placed on 4 L in dialysis, satting well per garbage person. Once back in room pt required increase to 5L ozimizer but has been satting 92+ Pt resting in bed comfortable. Pt ate well for all meals.
[2020-05-23 21:05] LABS: Glucose, Whole Blood 116 mg/dL (60-115)
[2020-05-23] MEDS: Atorvastatin Calcium 40 MG TABLET PO (21:22)
[2020-05-24] VITALS (9 sets, daily range): BP systolic 113–131; BP diastolic 55–60; PULSE 79–94; RESP 17–24; TEMP 35.7–36.8; O2SAT 94–96; BMI 33.7
[2020-05-24 07:51] LABS: Anion Gap 16 (12-20); Blood Urea Nitrogen 24 mg/dL (9-16); Carbon Dioxide 24 mmol/L (22-29); Chloride 103 mmol/L (96-108); Creatinine Clr Calc Pharmacy 15.6; Estimated Glomerular Filt Rate 14; Glucose Random 106 mg/dL (60-115); Potassium 4.2 mmol/l (3.3-5.1); Sodium 139 mmol/L (135-145)
[2020-05-24 07:53] LABS: Glucose, Whole Blood 110 mg/dL (60-115)
[2020-05-24] MEDS: 0.9 % Sodium Chloride Flush 3 ML SYRINGE IVFLUSH ×3 (09:03→21:41)
[2020-05-24] MEDS: FLUoxetine HCl Oral Solution 20 MG/5 ML SOLUTION PO (09:03)
[2020-05-24] MEDS: Isosorbide Mononitrate 60 MG TAB.ER.24H PO (09:04)
[2020-05-24] MEDS: QUEtiapine Fumarate 25 MG TABLET PO ×2 (09:04→21:40)
[2020-05-24] MEDS: Metoprolol Tartrate 25 MG TABLET PO ×2 (09:04→21:39)
[2020-05-24] MEDS: Cholecalciferol (Vitamin D3) 25 MCG TABLET 50 MCG PO (09:06)
[2020-05-24] MEDS: Nystatin Cream 15 GM TUBE 1 APPL TOPICAL ×2 (09:07→21:40)
[2020-05-24] MEDS: Nystatin Powder 15 GM BOTTLE 1 APPL TOPICAL ×2 (09:07→21:40)
--- NOTE | 2020-05-24 10:02 | MHC.CM.PN ---
CM CONTACTED PTS DAUGHTER/HCP KORTNEY [phone] TO DISCUSS POSSIBLE STEP DOWN TO STR LOC. KORTNEY REPORTS SHE DOES NOT WANT THE PT TO GO TO A SNF, SHE WANTS HER TO RETURN HOME. 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
--- NOTE | 2020-05-24 10:09 | PM.PNNEP ---
Subjective Subjective Date of Service: 05/24/20 Interval history: feels well Physical Exam Vital Signs: Vital Signs: Last Vital Signs Temp 96.3 F L 05/24/20 08:00 Pulse 82 05/24/20 09:04 Resp 24 H 05/24/20 08:00 BP 120/56 L 05/24/20 09:04 Pulse Ox 95 05/24/20 08:00 Body Mass Index 33.7 Const: Other: General - no acute distress, appears comfortable Cardiovascular - regular rate and rhythm, S1-S2 Lungs - no respiratory distress, diminished breath sound at bases Abdomen - soft, nontender, no rebound or guarding Extremities - no edema bilaterally Neuro - awake and alert, no focal deficits skin with multiple bruises General: cooperative, comfortable, no acute distress and ill appearing Orientation/consciousness: oriented to person, oriented to place and patient oriented x3 HENMT: Head: Yes normal to inspection, Yes normocephalic and Yes atraumatic Eyes: General: appearance normal, both eyes and all related structures Neck: Other: LIJ HD cath + Neck: Yes supple Resp: Other: Tachypneic, coughing while were in the room Effort & Inspection: normal respiratory effort Auscultation: rhonchi and diminished lung sounds Cardio: Other: General - no acute distress, appears comfortable Cardiovascular - regular rate and rhythm, S1-S2 Lungs - no respiratory distress, diminished breath sound at bases Abdomen - soft, nontender, no rebound or guarding Extremities - no edema bilaterally Neuro - awake and alert, no focal deficits skin with multiple bruises Rate: regular rate Rhythm: regular rhythm Heart sounds: S1 normal heart sound present, S2 normal heart sound present and no rubs GI: Inspection: Yes normal to inspection Palpation (GI): Soft to palpation and nontender Auscultation: normal bowel sounds Skin: General skin exam: no rashes or lesions noted Neuro: General: oriented to person, oriented to place, patient oriented x3 and moves all extremities Cognition (Neuro): normal cognition Motor exam (neuro): No Asterixis during motor activity present Extrem: General: Yes normal to inspection, Yes no pedal edema and Yes edema Right upper extremity: no edema Left upper extremity: no edema Objective Data Labs CBC & Chem 7: 05/23/20 05:44 05/24/20 05:44 Labs: Laboratory Results - last 24 hr 0105/23/20 05/23/20 11:59 16:17 20:51 Sodium Potassium Chloride Carbon Dioxide Anion Gap BUN Creatinine Estim Creat Clear Calc Estimated GFR POC Glucose 126 H 129 H 116 H Random Glucose Calcium 05/24/20 05/24/20 05:44 07:49 Sodium 139 Potassium 4.2 Chloride 103 Carbon Dioxide 24 Anion Gap 16 BUN 24 H Creatinine 3.35 H Estim Creat Clear Calc 15.6 Estimated GFR 14 POC Glucose 110 Random Glucose 106 Calcium 7.0 L Microbiology Microbiology Results: Microbiology 05/09/20 10:20 Blood - Venous Blood Culture - Final No growth after 5 days. 05/09/20 10:20 Blood - Venous Blood Culture - Final No growth after 5 days. 05/07/20 04:01 Blood - Venous Blood Culture - Final Staphylococcus aureus 05/07/20 04:01 Blood - Venous Blood Culture - Final No growth after 5 days. 05/05/20 05:25 Blood - Venous Blood Culture - Final Staphylococcus aureus 05/05/20 05:25 Blood - Venous Blood Culture - Final Staphylococcus aureus 05/04/20 13:40 Blood - Venous Blood Culture - Final Staphylococcus aureus 05/04/20 13:36 Blood - Venous Blood Culture - Final Staphylococcus aureus Assessment & Plan Assessment and plan (1) Bacteremia: Status: Acute (2) ESRD (end stage renal disease): Problem details: Usually gets HD on TTS Had HD yesTERDAY BUT cut short due to urgent need for dialysis in ICU pt Renal Diet; Continued volume optimization on HD Vancomycin post HD- total duration of 6 weeks for bacteremia-can be given at outpt unit Procrit [id number] Units TTS Status: Acute (3) COVID-19: Status: Acute (4) Anemia: Problem details: Marked anemia: consider transfusion as well as the procrit Status: Acute Time Spent With Patient Time: Total time spent is greater than 50% in coordination of care (as documented) at patient's floor/unit and/or counseling patient:
--- NOTE | 2020-05-24 10:53 | P.PNIM_ITS ---
Subjective Subjective Date of Service: 05/24/20 Interval History: no complaints Cardiovascular Cardiovascular: Reports no additional cardiovascular complaints Gastrointestinal Gastrointestinal: Reports no additional gastrointestinal complaints Physical Exam Vital Signs: Vital Signs: Last Vital Signs Temp 96.3 F L 05/24/20 08:00 Pulse 82 05/24/20 09:04 Resp 24 H 05/24/20 08:00 BP 120/56 L 05/24/20 09:04 Pulse Ox 95 05/24/20 08:00 Body Mass Index 33.7 General: AO X 3, no acute distress Resp: CTA bilateral CVS: S1,S2,RRR GI: soft, non tender, non distended Neuro: motor grossly intact Psych: appropriate affect Objective Data Current Medications Generic Name Dose Route Start Last Admin Trade Name Freq PRN Reason Stop Dose Admin Atorvastatin Calcium 40 mg 05/05/20 21:00 05/23/20 21:22 Atorvastatin Calcium 40 Mg Tablet PO 40 mg BEDTIME OPAL Administration Docusate Sodium 100 mg 05/05/20 01:14 Docusate Sodium 100 Mg Capsule PO DAILY PRN Constipation Fluoxetine HCl 20 mg 05/05/20 09:00 05/24/20 09:03 Fluoxetine Hcl Oral Solution 20 Mg/5 Ml Solution PO 20 mg DAILY [facility] Administration Cefazolin Sodium/Dextrose 2 gm in 50 mls @ 100 mls/hr 05/21/20 16:45 05/23/20 18:40 Ancef IV Infused [id number] OPAL Infusion Sodium Chloride 500 mls @ 20 mls/hr 05/22/20 15:45 05/23/20 11:10 Ns IVCONT Not Given .Q24H [facility] Insulin Human Lispro 0 unit 05/05/20 11:30 05/24/20 08:59 Insulin Lispro 100 Unit/Ml 3 Ml Vial SUBCUT Not Given QIDACHS [facility] Protocol Isosorbide Mononitrate 60 mg 05/05/20 09:00 05/24/20 09:04 Isosorbide Mononitrate 60 Mg Tab.Er.24h PO 60 mg DAILY OPAL Administration Protocol Loperamide HCl 2 mg 05/15/20 13:44 05/15/20 16:53 Loperamide Hcl 2 Mg Capsule PO 2 mg Q6H PRN Administration Diarrhea Metoprolol Tartrate 25 mg 05/05/20 09:00 05/24/20 09:04 Metoprolol Tartrate 25 Mg Tablet PO 25 mg BID OPAL Administration Protocol Nystatin 1 appl 05/16/20 11:15 05/24/20 09:07 Nystatin Powder 15 Gm Bottle TOPICAL 1 appl BID OPAL Administration Protocol Nystatin 1 appl 05/19/20 21:00 05/24/20 09:07 Nystatin Cream 15 Gm Tube TOPICAL 1 appl BID OPAL Administration Protocol Ondansetron HCl 4 mg 05/05/20 01:14 05/17/20 06:42 Ondansetron Hcl 4 Mg/2 Ml Vial IVPUSH 4 mg Q8H PRN Administration Nausea and Vomiting Quetiapine Fumarate 25 mg 05/09/20 21:00 05/23/20 21:22 Quetiapine Fumarate 25 Mg Tablet PO 25 mg BEDTIME OPAL Administration Quetiapine Fumarate 25 mg 05/09/20 09:15 05/24/20 09:04 Quetiapine Fumarate 25 Mg Tablet PO 25 mg DAILY OPAL Administration Sodium Chloride 3 ml 05/05/20 01:14 05/24/20 09:03 0.9 % Sodium Chloride Flush 3 Ml Syringe IVFLUSH 3 ml QSHIFT [facility] Administration Vitamin D 50 mcg 05/05/20 09:00 05/24/20 09:06 Cholecalciferol (Vitamin D3) 25 Mcg Tablet PO 50 mcg DAILY OPAL Administration Labs CBC & Chem 7: 05/23/20 05:44 05/24/20 05:44 Microbiology Microbiology Results: Microbiology 05/09/20 10:20 Blood - Venous Blood Culture - Final No growth after 5 days. 05/09/20 10:20 Blood - Venous Blood Culture - Final No growth after 5 days. 05/07/20 04:01 Blood - Venous Blood Culture - Final Staphylococcus aureus 05/07/20 04:01 Blood - Venous Blood Culture - Final No growth after 5 days. 05/05/20 05:25 Blood - Venous Blood Culture - Final Staphylococcus aureus 05/05/20 05:25 Blood - Venous Blood Culture - Final Staphylococcus aureus 05/04/20 13:40 Blood - Venous Blood Culture - Final Staphylococcus aureus 05/04/20 13:36 Blood - Venous Blood Culture - Final Staphylococcus aureus Assessment and Plan (1) Bacteremia: Status: Acute (2) ESRD (end stage renal disease): Problem details: Usually gets HD on TTS Had HD yesTERDAY BUT cut short due to urgent need for dialysis in ICU pt Renal Diet; Continued volume optimization on HD Vancomycin post HD- total duration of 6 weeks for bacteremia-can be given at outpt unit Procrit [id number] Units TTS Status: Acute (3) COVID-19: Status: Acute (4) Anemia: Problem details: Marked anemia: consider transfusion as well as the procrit Status: Acute Assessment and Plan: 69-year-old female with past medical history of COPD as well as CHF who presented to the hospital with acute hypoxic respiratory failure. Patient was also recently diagnosed with COVID-19 on 04/24 Acute on chronic hypoxic respiratory failure secondary to COVID-19 pneumonia , CHF and ESRD with fluid overload Tested positive COVID-19 on 04/24, patient hypoxemia improving, continue to wean oxygen Completed decadron Not a candidate for remdesivir/plasma given when she tested positive Staph aureus bacteremia - mssa dialysis cath removed, repeat blood cx negative 05/09, now permacath replaced 05/22/2020 changed to ancef 2gm post hd day of antibiotics, end jun 19, 2020 ESRD on dialysis HD Hypoglycemia event, uncontrolled DM ISS Acute inpatient delirium resolved,Continue Seroquel b.i.d. Diastolic CHF exacerbation volume status improved, continue dialysis COPD exacerbation resolved, completed steroid course,inhalers CAD continue Metoprolol, Plavix on hold for procedure Thrombocytopenia has been low in the past,maybe acute worsening due to COVID/bacteremia, or vanc, now on ancef dispo - family wants patient home, will need to wean o2 down first
[2020-05-24 11:52] LABS: Glucose, Whole Blood 131 mg/dL (60-115)
--- NOTE | 2020-05-24 13:08 | PM.HEMONCPN ---
Medical Summary - Medical Summary Date of Service: 05/24/20 Interval History Interval history: Her platelets have remained stable at 51,000. Review of Systems - Constitutional Reports lack of energy - Eyes Reports sensitivity to light - ENT Reports other - Cardiovascular Reports fast heart rate - Respiratory Reports chest congestion - Gastrointestinal Reports abdominal pain - Genitourinary Reports urinary urgency - Musculoskeletal Reports stiffness - Integumentary/Breasts Skin/Breast: Reports other - Neurologic Reports behavioral changes - Psychiatric Reports other - Endocrine Reports other - Hematologic/Lymphatic Reports easy bruising - Allergic/Immunologic Reports other [facility] Medical History: Medical History (Last Reviewed 05/22/20 @ 13:43 by Juanita Arguello) Bacteremia due to Staphylococcus Constipation COPD (chronic obstructive pulmonary disease) Diabetes Diastolic dysfunction Diverticulitis Dyspnea Smoking status: Smoker, status unknown Home Medications and Allergies Current Medications: Current Medications Generic Name Dose Route Start Last Admin Trade Name Freq PRN Reason Stop Dose Admin Atorvastatin Calcium 40 mg 05/05/20 21:00 05/23/20 21:22 Atorvastatin Calcium 40 Mg Tablet PO 40 mg BEDTIME OPAL Administration Docusate Sodium 100 mg 05/05/20 01:14 Docusate Sodium 100 Mg Capsule PO DAILY PRN Constipation Fluoxetine HCl 20 mg 05/05/20 09:00 05/24/20 09:03 Fluoxetine Hcl Oral Solution 20 Mg/5 Ml Solution PO 20 mg DAILY OPAL Administration Cefazolin Sodium/Dextrose 2 gm in 50 mls @ 100 mls/hr 05/21/20 16:45 05/23/20 18:40 Ancef IV Infused TuThSa@1645 OPAL Infusion Sodium Chloride 500 mls @ 20 mls/hr 05/22/20 15:45 05/23/20 11:10 Ns IVCONT Not Given .Q24H [facility] Insulin Human Lispro 0 unit 05/05/20 11:30 05/24/20 11:49 Insulin Lispro 100 Unit/Ml 3 Ml Vial SUBCUT Not Given QIDACHS [facility] Protocol Isosorbide Mononitrate 60 mg 05/05/20 09:00 05/24/20 09:04 Isosorbide Mononitrate 60 Mg Tab.Er.24h PO 60 mg DAILY OPAL Administration Protocol Loperamide HCl 2 mg 05/15/20 13:44 05/15/20 16:53 Loperamide Hcl 2 Mg Capsule PO 2 mg Q6H PRN Administration Diarrhea Metoprolol Tartrate 25 mg 05/05/20 09:00 05/24/20 09:04 Metoprolol Tartrate 25 Mg Tablet PO 25 mg BID OPAL Administration Protocol Nystatin 1 appl 05/16/20 11:15 05/24/20 09:07 Nystatin Powder 15 Gm Bottle TOPICAL 1 appl BID OPAL Administration Protocol Nystatin 1 appl 05/19/20 21:00 05/24/20 09:07 Nystatin Cream 15 Gm Tube TOPICAL 1 appl BID OPAL Administration Protocol Ondansetron HCl 4 mg 05/05/20 01:14 05/17/20 06:42 Ondansetron Hcl 4 Mg/2 Ml Vial IVPUSH 4 mg Q8H PRN Administration Nausea and Vomiting Quetiapine Fumarate 25 mg 05/09/20 21:00 05/23/20 21:22 Quetiapine Fumarate 25 Mg Tablet PO 25 mg BEDTIME OPAL Administration Quetiapine Fumarate 25 mg 05/09/20 09:15 05/24/20 09:04 Quetiapine Fumarate 25 Mg Tablet PO 25 mg DAILY OPAL Administration Sodium Chloride 3 ml 05/05/20 01:14 05/24/20 09:03 0.9 % Sodium Chloride Flush 3 Ml Syringe IVFLUSH 3 ml QSHIFT [facility] Administration Vitamin D 50 mcg 05/05/20 09:00 05/24/20 09:06 Cholecalciferol (Vitamin D3) 25 Mcg Tablet PO 50 mcg DAILY OPAL Administration Home Medications Medication Instructions Recorded Confirmed Type atorvastatin 40 mg PO BEDTIME 04/24/20 05/04/20 History bumetanide 4 mg PO SUTUTHSA@0800,1700 04/24/20 05/04/20 History cholecalciferol (vitamin D3) 50 mcg PO QAM 04/24/20 05/04/20 History clopidogrel 75 mg PO BEDTIME 04/24/20 05/04/20 History fluoxetine 5 ml PO DAILY 04/24/20 05/04/20 History isosorbide mononitrate 60 mg PO QAM 04/24/20 05/04/20 History metoprolol tartrate 25 mg PO BID 04/24/20 05/04/20 History lorazepam 0.5 mg PO DAILY PRN 05/04/20 05/04/20 History quetiapine 25 mg PO BEDTIME PRN 05/04/20 05/04/20 History umeclidinium-vilanterol [Anoro 1 puff INHALATION DAILY 05/04/20 05/04/20 History Ellipta] Allergies Allergy/AdvReac Type Severity Reaction Status Date / Time Penicillins Allergy Severe Anaphylaxis, Verified 05/13/20 12:33 hives acetaminophen [From TYLENOL] Allergy Unknown Unknown Verified 05/13/20 12:36 aspirin [ASPIRIN] Allergy Unknown rash, Verified 05/13/20 12:33 stomach upset diazepam [From VALIUM] Allergy Unknown RESP Verified 04/24/20 20:22 FAILURE penicillin V Allergy Unknown edema Verified 11/21/19 00:00 metformin [Metformin] AdvReac Mild DIARRHEA Verified 04/24/20 20:22 Exam Vital signs: Vital Signs Temp 97.8 F 05/24/20 12:00 Pulse 86 05/24/20 12:00 Resp 20 05/24/20 12:00 BP 128/60 05/24/20 12:00 Pulse Ox 96 05/24/20 12:00 Intake & Output 05/23/20 05/24/20 05/24/20 18:59 06:59 18:59 Intake Total 670 / 940 270 / 940 Balance 670 / 940 270 / 940 Intake: Intake, Oral Amount 620 / 890 270 / 890 Intake, IV Amount 50 / 50 ceFAZolin Sodium/Dextrose,Iso 2 50 / 50 gm In 50 ml @ 100 mls/hr IV TuThSa@1645 [facility] Rx#:[id number] Other: Breakfast % Eaten 25% Lunch % Eaten 50% Dinner % Eaten 50% Number of Incontinent Voids 3 1 Number of Bowel Movements 1 Last Bowel Movement 05/24/20 Stool Bedpan Stool Amount Moderate Stool Color Mucousy Stool Consistency Soft Weight 83.8 kg Weight 83.8 kg Body Mass Index 33.7 - Constitutional Present: no acute distress - Routine HEENT Exam Head: Present: atraumatic - Routine Neck Exam Present: full ROM - Routine Cardiovascular Exam Cardiovascular: Present: RRR - Routine Abdominal Exam Present: diminished bowel sounds - Routine Rectal Exam Patient deferred: visual exam - Routine Extremities Exam Present: nontender - Routine Skin Exam Present: dry - Routine Neurological Exam Present: oriented X3 Data - Labs CBC & Chem 7: 05/23/20 05:44 05/24/20 05:44 Labs: 05/04/20 13:26 Albuterol Sulfate (0.083%) [Ventolin (0.083%)] 5 mg INHALE ONCE ONE Consult Rx Perform Med Rec 1 each MISCELLANE ONCE PRN dexAMETHasone sod phosphate [Decadron] 4 mg IVPUSH ONCE ONE ondansetron HCL [Zofran] 4 mg IVPUSH ONCE ONE 05/04/20 13:27 ECG 12 lead EKG Stat EKG Documentation DIRECTED 05/04/20 13:28 XR chest 1V Stat 05/04/20 13:36 Troponin-I High Sensitivity Stat 05/04/20 13:37 B Type Natriuretic Peptide Stat Complete Blood Count Man Dif Stat Partial Thromboplastin Time Stat Prothrombin Time INR Stat 05/04/20 13:40 Blood Culture X2 [BC] Stat 05/04/20 13:56 Lactic Acid Stat 05/04/20 14:32 Ertapenem Sodium [INVanz] 0.5 gm 0.9 % Sodium Chloride [Ns] 50 ml IV ONCE 05/04/20 14:40 Ertapenem Sodium [INVanz] 1 gm .ROUTE .STK-MED ONE 05/04/20 14:49 Furosemide [Lasix] 40 mg IVPUSH ONCE ONE 05/04/20 14:57 Basic Metabolic Panel Stat Ferritin Stat Lactate Dehydrogenase Stat Lipase Stat Liver Panel Stat Magnesium Stat 05/04/20 16:29 Insulin Regular, Human [Humulin R] 10 unit IVPUSH ONCE ONE 05/04/20 16:30 Insulin Regular/NS [Myxredlin] 100 unit in 100 ml IVCONT 8 mls/hr 05/04/20 16:51 Albuterol Sulfate (0.083%) [Ventolin (0.083%)] 5 mg INHALE ONCE ONE 05/04/20 17:42 Glucose, Whole Blood Routine 05/04/20 17:49 Glucose, Whole Blood Routine 05/04/20 18:26 Glucose, blood poc .Now 05/04/20 18:40 Glucose, Whole Blood Routine 05/04/20 19:29 Glucose, blood poc .Now 05/04/20 19:34 Glucose, Whole Blood Routine 05/04/20 19:45 Insulin Regular, Human [Humulin R] 10 unit IVPUSH ONCE ONE 05/04/20 20:13 Glucose, Whole Blood Routine 05/04/20 20:45 Glucose, blood poc .Now 05/04/20 21:21 Glucose, Whole Blood Routine 05/04/20 22:26 Glucose, Whole Blood Routine 05/04/20 23:41 Glucose, Whole Blood Routine 05/04/20 23:43 Transfer Order Routine 05/05/20 01:14 LORazepam [Ativan] 0.5 mg PO DAILY PRN QUEtiapine Fumarate [SEROquel] 25 mg PO BEDTIME PRN 05/05/20 01:37 Glucose, Whole Blood Routine 05/05/20 04:48 Consult Rx Vancomycin Dosing 1 each MISCELLANE DAILY PRN 05/05/20 05:00 vancomycin HCL 750 mg vancomycin HCL 500 mg 0.9 % Sodium Chloride [Ns] 250 ml IV Q24H 05/05/20 05:21 cefTRIAXone sodium [Rocephin] 1 gm 0.9 % Sodium Chloride [Ns] 50 ml IV NOW 05/05/20 05:25 Basic Metabolic Panel Routine Complete Blood Count Man Dif Routine Blood Culture X2 [BC] Stat 05/05/20 05:26 cefTRIAXone sodium [Rocephin] 1 gm .ROUTE .STK-MED ONE 05/05/20 05:30 vancomycin HCL 1,000 mg 0.9 % Sodium Chloride [Ns] 250 ml IV ONCE 05/05/20 05:40 Legionella Ag Urine Stat Strep Pneumo Ag urine Stat 05/05/20 06:11 vancomycin HCL 1,000 mg .ROUTE .STK-MED ONE 05/05/20 06:15 vancomycin HCL 1,000 mg .ROUTE .STK-MED ONE 05/05/20 08:06 Glucose, Whole Blood Routine 05/05/20 09:00 Furosemide [Lasix] 40 mg IVPUSH BID@0900,1800 dexAMETHasone sod phosphate [Decadron] 4 mg IVPUSH DAILY umeclidinium-vilanterol [Anoro Ellipta] 1 puff INHALE DAILY 05/05/20 Breakfast Diabetic Diet 05/05/20 11:06 Glucose, Whole Blood Routine 05/05/20 11:49 Vancomycin Random Stat 05/05/20 12:05 Insulin Glargine,Hum.rec.anlog [Lantus] 8 unit SUBCUT DAILY 05/05/20 13:00 CA echo transthoracic complete Routine 05/05/20 15:06 Airloss Bed ONCE 05/05/20 Lunch Diabetic Diet 05/05/20 16:22 Glucose, Whole Blood Routine 05/05/20 20:17 Glucose, Whole Blood Routine 05/05/20 21:00 Clopidogrel Bisulfate [Plavix] 75 mg PO BEDTIME 05/06/20 03:07 Consult Rx Vancomycin Dosing 1 each MISCELLANE DAILY PRN 05/06/20 03:15 vancomycin HCL 750 mg vancomycin HCL 500 mg 0.9 % Sodium Chloride [Ns] 250 ml IV Q24H 05/06/20 03:45 vancomycin HCL 750 mg vancomycin HCL 500 mg 0.9 % Sodium Chloride [Ns] 250 ml IV Q24H 05/06/20 04:02 vancomycin HCL 500 mg IV .STK-MED ONE vancomycin HCL 750 mg IV .STK-MED ONE 05/06/20 04:31 Prochlorperazine Edisylate [Compazine] 5 mg IVPUSH ONCE ONE 05/06/20 06:00 cefTRIAXone sodium [Rocephin] 1 gm 0.9 % Sodium Chloride [Ns] 50 ml IV Q24H 05/06/20 06:04 Basic Metabolic Panel DAILY@0600 Complete Blood Count no Diff DAILY@0600 Liver Panel Routine Vancomycin Random Routine 05/06/20 06:30 cefTRIAXone sodium [Rocephin] 1 gm .ROUTE .STK-MED ONE 05/06/20 07:32 Glucose, Whole Blood Routine 05/06/20 10:50 Glucose, Whole Blood Routine 05/06/20 13:42 Vancomycin Trough Routine 05/06/20 Lunch Diabetic Diet 05/06/20 16:26 Glucose, Whole Blood Routine 05/06/20 17:00 Bumetanide [Bumex] 2 mg PO BID@0800,1700 05/06/20 17:19 Vancomycin Random Urgent 05/06/20 18:41 High Flow CONT 05/06/20 20:08 LORazepam [Ativan] 0.5 mg IVPUSH ONCE ONE 05/06/20 20:09 Glucose, Whole Blood Routine 05/07/20 04:01 Basic Metabolic Panel DAILY@0600 Complete Blood Count no Diff DAILY@0600 Prothrombin Time INR DAILY@0600 Vancomycin Random Routine Blood Culture X2 [BC] Routine 05/07/20 07:31 Glucose, Whole Blood Routine 05/07/20 09:40 Complete Blood Count no Diff Routine 05/07/20 11:03 Glucose, Whole Blood Routine 05/07/20 11:35 Lidocaine HCl 1 % MPF [Xylocaine 1 % MPF] 5 ml .ROUTE .STK-MED ONE 05/07/20 13:17 IR cvc remov tunnel wo prt/subpoena server Routine 05/07/20 14:07 Lidocaine HCl 1 % MPF [Xylocaine 1 % MPF] 5 ml .ROUTE .STK-MED ONE 05/07/20 14:44 Midazolam HCl/PF [Versed] 2 mg .ROUTE .STK-MED ONE Naloxone HCl [Narcan] 0.4 mg .ROUTE .STK-MED ONE fentaNYL citrate/PF [Sublimaze] 50 mcg .ROUTE .STK-MED ONE flumazeniL [Romazicon] 0.05 mg .ROUTE .STK-MED ONE 05/07/20 16:16 Glucose, Whole Blood Routine 05/07/20 16:29 0.9 % Sodium Chloride [Ns] 1,000 ml IV 999 mls/hr Transfer Order Routine 05/07/20 17:32 Transfer Order Routine 05/07/20 17:45 Doxycycline Hyclate [Vibramycin] 100 mg 0.9 % Sodium Chloride [Ns] 250 ml IV Q12H 05/07/20 17:59 Doxycycline Hyclate [Vibramycin] 100 mg IV .STK-MED ONE 05/07/20 18:35 dexAMETHasone sod phosphate [Decadron] 6 mg IVPUSH DAILY 05/07/20 20:18 Glucose, Whole Blood Routine 05/07/20 21:00 Insulin Glargine,Hum.rec.anlog [Lantus] 8 unit SUBCUT BEDTIME 05/08/20 05:10 Doxycycline Hyclate [Vibramycin] 100 mg IV .STK-MED ONE 05/08/20 05:48 Basic Metabolic Panel DAILY@0600 Complete Blood Count no Diff DAILY@0600 05/08/20 07:48 Glucose, Whole Blood Routine 05/08/20 11:47 Glucose, Whole Blood Routine 05/08/20 16:46 Glucose, Whole Blood Routine 05/08/20 16:58 Doxycycline Hyclate [Vibramycin] 100 mg IV .STK-MED ONE 05/08/20 20:17 Glucose, Whole Blood Routine 05/09/20 ECG 12 lead EKG Stat 05/09/20 05:02 Doxycycline Hyclate [Vibramycin] 100 mg IV .STK-MED ONE 05/09/20 06:26 Basic Metabolic Panel DAILY@0600 Complete Blood Count no Diff DAILY@0600 05/09/20 07:52 Glucose, Whole Blood Routine 05/09/20 10:20 Blood Culture X2 [BC] Stat 05/09/20 11:59 Glucose, Whole Blood Routine 05/09/20 16:54 Glucose, Whole Blood Routine 05/09/20 17:28 Doxycycline Hyclate [Vibramycin] 100 mg IV .STK-MED ONE 05/09/20 20:57 Glucose, Whole Blood Routine 05/09/20 23:09 EKG Documentation DIRECTED 05/09/20 23:32 Haloperidol Lactate [Haldol] 2 mg IVPUSH ONCE ONE 05/10/20 04:40 Doxycycline Hyclate [Vibramycin] 100 mg IV .STK-MED ONE 05/10/20 06:02 Basic Metabolic Panel DAILY@0600 05/10/20 08:20 Glucose, Whole Blood Routine 05/10/20 10:25 LORazepam [Ativan] 0.5 mg IVPUSH ONCE ONE 05/10/20 12:09 Glucose, Whole Blood Routine 05/10/20 16:14 Glucose, Whole Blood Routine 05/10/20 17:06 Doxycycline Hyclate [Vibramycin] 100 mg IV .STK-MED ONE 05/10/20 20:28 Glucose, Whole Blood Routine 05/10/20 20:59 QUEtiapine Fumarate [SEROquel] 25 mg PO ONCE ONE 05/11/20 05:22 Basic Metabolic Panel DAILY@0600 05/11/20 05:40 Doxycycline Hyclate [Vibramycin] 100 mg IV .STK-MED ONE 05/11/20 08:06 Glucose, Whole Blood Routine 05/11/20 11:53 Glucose, Whole Blood Routine 05/11/20 15:52 Glucose, Whole Blood Routine 05/11/20 17:00 Doxycycline Hyclate [Vibramycin] 100 mg IV .STK-MED ONE 05/11/20 20:15 Glucose, Whole Blood Routine 05/11/20 21:00 Sodium Bicarbonate [Neut] 1,300 mg PO TID 05/12/20 IR us guide venous access Routine XR chest 1V Stat 05/12/20 05:39 Basic Metabolic Panel DAILY@0600 Complete Blood Count no Diff DAILY@0600 Liver Panel Routine Prothrombin Time INR DAILY@0600 05/12/20 05:54 Doxycycline Hyclate [Vibramycin] 100 mg IV .STK-MED ONE 05/12/20 07:31 Glucose, Whole Blood Routine 05/12/20 08:04 Add Laboratory Test Urgent 05/12/20 08:50 Calcium Gluconate/NaCl,Iso-Osm [Calcium Gluconate] 2 gm in 100 ml IV ONCE 05/12/20 Breakfast NPO Diet 05/12/20 11:16 Glucose, Whole Blood Routine 05/12/20 13:00 IR cvc insert non tunnel Routine propofoL [Diprivan] 200 mg IVPUSH .STK-MED ONE 05/12/20 13:01 Phenylephrine HCL 10 mg .ROUTE .STK-MED ONE 05/12/20 13:46 Heparin Sodium,Porcine 1,000 unit IV .STK-MED ONE Lidocaine HCl 1 % MPF [Xylocaine 1 % MPF] 5 ml .ROUTE .STK-MED ONE 05/12/20 15:21 Lidocaine HCl 1 % MPF [Xylocaine 1 % MPF] 10 ml SUBCUT ONCE ONE 05/12/20 17:04 Glucose, Whole Blood Routine 05/12/20 20:12 Doxycycline Hyclate [Vibramycin] 100 mg IV .STK-MED ONE 05/12/20 20:44 Glucose, Whole Blood Routine 05/13/20 05:34 Basic Metabolic Panel DAILY@0600 05/13/20 05:50 Doxycycline Hyclate [Vibramycin] 100 mg IV .STK-MED ONE 05/13/20 06:59 Glucose, Whole Blood Routine 05/13/20 07:19 Glucose, Whole Blood Routine 05/13/20 07:58 Glucose, Whole Blood Routine 05/13/20 11:16 Glucose, Whole Blood Routine 05/13/20 13:00 Glucose, Whole Blood Routine 05/13/20 16:45 Glucose, Whole Blood Routine 05/13/20 17:56 Doxycycline Hyclate [Vibramycin] 100 mg IV .STK-MED ONE 05/13/20 21:36 Glucose, Whole Blood Routine 05/14/20 04:59 Doxycycline Hyclate [Vibramycin] 100 mg IV .STK-MED ONE 05/14/20 05:31 Basic Metabolic Panel DAILY@0600 05/14/20 08:02 Glucose, Whole Blood Routine 05/14/20 Breakfast Diabetic Diet 05/14/20 13:06 vancomycin HCL 750 mg IV .STK-MED ONE 05/14/20 14:00 vancomycin HCL 750 mg 0.9 % Sodium Chloride [Ns] 250 ml IV Q48H 05/14/20 Lunch Diabetic Diet 05/14/20 16:12 Glucose, Whole Blood Routine 05/14/20 20:35 Glucose, Whole Blood Routine 05/15/20 06:56 Complete Blood Count no Diff DAILY@0600 05/15/20 07:26 Basic Metabolic Panel DAILY@0600 05/15/20 07:44 Glucose, Whole Blood Routine 05/15/20 12:00 CDiff with Reflex to PCR Routine 05/15/20 12:05 Glucose, Whole Blood Routine 05/15/20 16:04 Glucose, Whole Blood Routine 05/15/20 20:08 Glucose, Whole Blood Routine 05/16/20 07:37 Glucose, Whole Blood Routine 05/16/20 10:51 Basic Metabolic Panel DAILY@0600 Vancomycin Random Routine 05/16/20 12:39 Glucose, Whole Blood Routine 05/16/20 13:26 vancomycin HCL 750 mg IV .STK-MED ONE 05/16/20 16:01 Glucose, Whole Blood Routine 05/16/20 20:27 Glucose, Whole Blood Routine 05/17/20 00:27 Prochlorperazine Edisylate [Compazine] 5 mg IVPUSH ONCE ONE 05/17/20 06:38 Basic Metabolic Panel DAILY@0600 05/17/20 08:06 Glucose, Whole Blood Routine 05/17/20 12:08 Glucose, Whole Blood Routine 05/17/20 16:13 Glucose, Whole Blood Routine 05/17/20 20:30 Glucose, Whole Blood Routine 05/18/20 00:40 Glucose, Whole Blood Routine 05/18/20 01:52 traMADoL HCL [Ultram] 50 mg PO ONCE ONE 05/18/20 06:03 Basic Metabolic Panel DAILY@0600 Complete Blood Count no Diff DAILY@0600 05/18/20 09:10 oxyCODONE HCl Immed Release [Roxicodone] 5 mg PO Q6H PRN 05/18/20 09:23 Glucose, Whole Blood Routine 05/18/20 Breakfast Diabetic Diet NPO Diet 05/18/20 11:29 Glucose, Whole Blood Routine 05/18/20 11:59 propofoL [Diprivan] 200 mg IVPUSH .STK-MED ONE 05/18/20 12:35 Glucose, Whole Blood Routine 05/18/20 Lunch Diabetic Diet 05/18/20 16:37 Glucose, Whole Blood Routine 05/18/20 20:38 Glucose, Whole Blood Routine 05/19/20 08:19 Basic Metabolic Panel DAILY@0600 Vancomycin Random Routine 05/19/20 09:31 Glucose, Whole Blood Routine 05/19/20 11:14 Glucose, Whole Blood Routine 05/19/20 12:47 Potassium Chloride ER [Klor-con] 40 meq PO ONCE ONE 05/19/20 16:32 Glucose, Whole Blood Routine 05/19/20 16:45 vancomycin HCL 1,000 mg 0.9 % Sodium Chloride [Ns] 250 ml IV TuThSa@1645 vancomycin HCL 750 mg 0.9 % Sodium Chloride [Ns] 250 ml IV TuThSa@1645 05/19/20 17:32 vancomycin HCL 1,000 mg .ROUTE .STK-MED ONE 05/19/20 18:50 CDiff with Reflex to PCR Routine 05/19/20 20:34 Glucose, Whole Blood Routine 05/20/20 05:08 Basic Metabolic Panel Routine Complete Blood Count Auto Diff Routine Lactate Dehydrogenase Routine 05/20/20 07:08 Vitamin B12 and Folate Routine 05/20/20 07:29 Glucose, Whole Blood Routine 05/20/20 09:07 Pheresis Platelets Routine Type and Screen Routine 05/20/20 Breakfast NPO Diet 05/20/20 11:56 Glucose, Whole Blood Routine 05/20/20 15:08 Add Laboratory Test Routine 05/20/20 15:11 Complete Blood Count no Diff Stat 05/20/20 15:48 Glucose, Whole Blood Routine 05/20/20 19:39 Glucose, Whole Blood Routine 05/21/20 07:34 Glucose, Whole Blood Routine 05/21/20 08:02 BMP [Basic Metabolic Panel Fasting] Routine Basic Metabolic Panel DAILY@0600 Complete Blood Count Auto Diff Routine Vancomycin Random Routine 05/21/20 11:11 Glucose, Whole Blood Routine 05/21/20 Lunch Diabetic Diet 05/21/20 16:53 Glucose, Whole Blood Routine 05/21/20 20:02 Glucose, Whole Blood Routine 05/22/20 06:08 BMP [Basic Metabolic Panel Fasting] Routine Basic Metabolic Panel DAILY@0600 Complete Blood Count Auto Diff Routine IRON PROFILE Routine SLIDE REVIEW Routine 05/22/20 08:38 Glucose, Whole Blood Routine 05/22/20 Breakfast NPO Diet 05/22/20 13:20 Glucose, Whole Blood Routine 05/22/20 13:54 Atropine Sulfate 1 mg .ROUTE .STK-MED ONE EPINEPHrine [Adrenalin] 1 mg IVPUSH .STK-MED ONE Phenylephrine HCL 1,000 mcg IVPUSH .STK-MED ONE Succinylcholine Chloride [Quelicin] 100 mg IVPUSH .STK-MED ONE ePHEDrine sulfate 50 mg .ROUTE .STK-MED ONE propofoL [Diprivan] 200 mg IVPUSH .STK-MED ONE 05/22/20 13:55 Ketamine HCl/NS 50 mg IVPUSH .STK-MED ONE 05/22/20 14:16 Heparin Sodium,Porcine 1,000 unit IV .STK-MED ONE Lidocaine HCl 1%/Epi 1:100,000 [Xylocaine 1 %-Epi 1:100,000] 20 ml .ROUTE .STK-MED ONE 05/22/20 14:17 Heparin Sodium (Porcine)/NS/PF 1,000 unit in 500 ml IV As directed 05/22/20 14:30 IR cvc insert central tunnel Routine 05/22/20 14:46 ceFAZolin Sodium/Dextrose,Iso [Ancef] 2 gm in 50 ml .ROUTE As directed 05/22/20 15:07 Heparin Sodium,Porcine 1,000 unit IV .STK-MED ONE 05/22/20 Lunch Low Sodium Diet 05/22/20 15:48 Lidocaine HCl 1%/Epi 1:100,000 [Xylocaine 1 %-Epi 1:100,000] 20 ml INFILTRATI ONCE ONE 05/22/20 15:49 Heparin Sodium,Porcine 5,000 unit IV ONCE ONE 05/22/20 16:14 Glucose, Whole Blood Routine 05/22/20 18:07 Add Laboratory Test Urgent 05/22/20 19:42 Glucose, Whole Blood Routine 05/23/20 05:44 BMP [Basic Metabolic Panel Fasting] Routine Complete Blood Count Auto Diff Routine SLIDE REVIEW Routine 05/23/20 08:08 Glucose, Whole Blood Routine 05/23/20 11:59 Glucose, Whole Blood Routine Laboratory Last Values WBC 7.3 X10*3/uL (4.8-10.8) 05/23/20 05:44 RBC 2.31 X10*6/uL (4.20-5.50) L 05/23/20 05:44 Hgb 7.3 g/dl (12.0-16.0) L 05/23/20 05:44 Hct 22.9 % (37-47) L 05/23/20 05:44 MCV 99.1 fL (80-98) H 05/23/20 05:44 MCH 31.6 pg (27.0-33.0) 05/23/20 05:44 MCHC 31.9 g/dl (31.0-35.0) 05/23/20 05:44 RDW 15.6 % (11.0-16.0) 05/23/20 05:44 Plt Count 51 X10*3/uL (160-400) L D 05/23/20 05:44 MPV 13.1 fL (9.4-12.3) H 05/23/20 05:44 Immature Gran % (Auto) 0.8 % (0.0-0.4) H 05/23/20 05:44 Neut % (Auto) 75.7 % (45-73) H 05/23/20 05:44 Lymph % (Auto) 12.1 % (20-40) L 05/23/20 05:44 Drew % (Auto) 9.6 % (2-11) 05/23/20 05:44 Eos % (Auto) 1.7 % (0-4) 05/23/20 05:44 Baso % (Auto) 0.1 % (0-2) 05/23/20 05:44 Lymph # (Auto) 0.9 X10*3/uL (1.2-4.9) L 05/23/20 05:44 Drew # (Auto) 0.7 X10*3/uL (0.1-1.2) 05/23/20 05:44 Eos # (Auto) 0.1 X10*3/uL (0.0-0.4) 05/23/20 05:44 Baso # (Auto) 0.0 X10*3/uL (0.0-0.2) 05/23/20 05:44 Abs Immat Gran (auto) 0.06 X10*3/uL (0.00-0.03) H 05/23/20 05:44 Absolute Neuts (auto) 5.5 X10*3/uL (2.0-8.3) 05/23/20 05:44 Absolute Nucleated RBC 0.000 X10*3/uL (0.0-0.012) 05/23/20 05:44 Nucleated RBC % (auto) 0.0 /100WBC (0.0-0.2) 05/23/20 05:44 Neutrophils % (Manual) 68 % (45-73) 05/05/20 05:25 Band Neutrophils % 12 % (3-5) H 05/05/20 05:25 Lymphocytes % (Manual) 9 % (20-40) L 05/05/20 05:25 Monocytes % (Manual) 11 % (2-11) 05/05/20 05:25 Abs Neuts (Manual) 4.1 X10*3/uL (2.2-7.9) 05/05/20 05:25 Lymphocytes # (Manual) 0.5 X10*3/uL (0.6-4.8) L 05/05/20 05:25 Monocytes # (Manual) 0.6 X10*3/uL (0.0-1.2) 05/05/20 05:25 Nucleated RBCs 1 /100WBC (0-0) H 05/04/20 13:37 Platelet Estimate DECREASED (NORMAL) 05/05/20 05:25 Plt Morphology Comment NORMAL 05/05/20 05:25 RBC Morphology NOTED 05/05/20 05:25 Polychromasia 1+ 05/05/20 05:25 Microcytosis 1+ 05/04/20 13:37 Macrocytosis 1+ 05/05/20 05:25 Spherocytes 1+ 05/05/20 05:25 Tear Drop Cells 1+ 05/05/20 05:25 Ovalocytes 1+ 05/05/20 05:25 Sury Cells 1+ 05/04/20 13:37 Acanthocytes (Spur) 1+ 05/05/20 05:25 Schistocytes 1+ 05/04/20 13:37 Smear Tech's Comments VERIFIED 05/23/20 05:44 Smear Path Review SEE NOTE 05/04/20 13:37 PT 11.7 SEC (10.8-13.0) 05/12/20 05:39 INR 1.0 (0.9-1.1) 05/12/20 05:39 APTT 32.4 SEC (24.1-38.0) 05/04/20 13:37 Sodium 139 mmol/L (135-145) 05/23/20 05:44 Potassium 4.5 mmol/l (3.3-5.1) 05/23/20 05:44 Chloride 102 mmol/L (96-108) 05/23/20 05:44 Carbon Dioxide 24 mmol/L (22-29) 05/23/20 05:44 Anion Gap 18 (12-20) 05/23/20 05:44 BUN 24 mg/dL (9-16) H 05/23/20 05:44 Creatinine 3.21 mg/dL (0.5-1.4) H 05/23/20 05:44 Estim Creat Clear Calc 16.2 05/23/20 05:44 Estimated GFR 14 05/23/20 05:44 POC Glucose 126 mg/dL (60-115) H 05/23/20 11:59 Random Glucose Cancelled 05/23/20 05:44 Fasting Glucose 108 mg/dL (60-99) H 05/23/20 05:44 Lactic Acid 2.0 mmol/L (0.5-2.0) 05/04/20 13:56 Calcium 7.0 mg/dL (8.4-10.2) L 05/23/20 05:44 Magnesium 2.2 mg/dL (1.6-2.6) 05/04/20 14:57 Iron 52 mcg/dL (30-160) 05/22/20 06:08 TIBC 87 mcg/dL (228-428) L 05/22/20 06:08 % Saturation 60 % (15-50) H 05/22/20 06:08 Unsat Iron Binding 35 ug/dL 05/22/20 06:08 Ferritin 5660 ng/mL (10-250) H 05/04/20 14:57 Total Bilirubin 0.6 mg/dL (0.0-1.0) 05/12/20 05:39 Direct Bilirubin 0.3 mg/dL (0.0-0.5) 05/12/20 05:39 AST 57 U/L (5-31) H 05/12/20 05:39 ALT 76 U/L (0-31) H 05/12/20 05:39 Alkaline Phosphatase 215 U/L (39-117) H D 05/12/20 05:39 Lactate Dehydrogenase 352 U/L (122-220) H 05/20/20 05:08 Troponin I High Sens 49.0 ng/L (<3.5-17.0) H 05/04/20 13:36 B-Natriuretic Peptide 1054 pg/mL (<100) H 05/04/20 13:37 Total Protein 5.8 g/dL (6.5-8.0) L 05/12/20 05:39 Albumin 2.2 g/dL (3.5-5.0) L 05/12/20 05:39 Lipase 92 U/L (8-78) H 05/04/20 14:57 Vitamin B12 > 2000 pg/mL (200-900) H 05/20/20 07:08 Folate 4.8 ng/mL (> or = 4.0) 05/20/20 07:08 Vancomycin Trough 30.6 mcg/mL (10.0-20.0) H* 05/06/20 13:42 Random Vancomycin 31.0 mcg/mL (15-20) H* 05/21/20 08:02 C. difficile Toxin A&B Negative (Negative) 05/19/20 18:50 C. difficile Antigen Negative (Negative) 05/19/20 18:50 C. difficile Interpret SEE NOTE 05/19/20 18:50 Ur L.pneumophila Ag Not Detected (Not Detected) 05/05/20 05:40 Ur Strep pneumoniae Ag Not Detected (Not Detected) 05/05/20 05:40 Blood Type O Positive 05/20/20 09:07 Antibody Screen NEGATIVE 05/20/20 09:07 - Imaging Radiologist's impression: ITS Impressions Chest X-Ray 05/04/20 13:28 IMPRESSION: Low lung volumes. Mild vascular congestion with some early airspace opacity right upper lobe and left infrahilar region. No overt effusion. Tunnelled Catheter Removal 05/07/20 13:17 IMPRESSION: Successful removal of tunneled right permacatheter. Fluoroscopy time: 4.5 minutes. Dose area product: [id number] [id number] Chest X-Ray 05/12/20 00:00 IMPRESSION: 12.5 [place] 20 cm in length temporary left internal jugular Mahurkar dialysis catheter placement. EXAMINATION: Chest x-ray CLINICAL INFORMATION: Renal failure. Post portable left internal jugular dialysis catheter placement COMPARISON: None. TECHNIQUE: AP portable chest FINDINGS: The cardiac silhouette is enlarged but stable. There is bilateral multilobar airspace disease that appears unchanged. There is a new left internal jugular dialysis catheter with tip projecting over the caval atrial junction. There is no pleural effusion or pneumothorax. IMPRESSION: Left internal jugular dialysis catheter projects over the cavoatrial junction. No pneumothorax. Guidance Ultrasound 05/12/20 00:00 IMPRESSION: 12.5 [place] 20 cm in length temporary left internal jugular Mahurkar dialysis catheter placement. EXAMINATION: Chest x-ray CLINICAL INFORMATION: Renal failure. Post portable left internal jugular dialysis catheter placement COMPARISON: None. TECHNIQUE: AP portable chest FINDINGS: The cardiac silhouette is enlarged but stable. There is bilateral multilobar airspace disease that appears unchanged. There is a new left internal jugular dialysis catheter with tip projecting over the caval atrial junction. There is no pleural effusion or pneumothorax. IMPRESSION: Left internal jugular dialysis catheter projects over the cavoatrial junction. No pneumothorax. Insertion Non-Tunneled Catheter 05/12/20 13:00 IMPRESSION: 12.5 [place] 20 cm in length temporary left internal jugular Mahurkar dialysis catheter placement. EXAMINATION: Chest x-ray CLINICAL INFORMATION: Renal failure. Post portable left internal jugular dialysis catheter placement COMPARISON: None. TECHNIQUE: AP portable chest FINDINGS: The cardiac silhouette is enlarged but stable. There is bilateral multilobar airspace disease that appears unchanged. There is a new left internal jugular dialysis catheter with tip projecting over the caval atrial junction. There is no pleural effusion or pneumothorax. IMPRESSION: Left internal jugular dialysis catheter projects over the cavoatrial junction. No pneumothorax. Insertion Tunneled Catheter 05/22/20 14:30 IMPRESSION: Left internal jugular 14.5 [place] 28 cm in length palindrome permacath placement. Progress Note: A/P - Time Spent With Patient Total time spent is greater than 50% in coordination of care (as documented) at patient's floor/unit and/or counseling patient: less than 15 minutes
[2020-05-24 16:44] LABS: Glucose, Whole Blood 110 mg/dL (60-115)
--- NOTE | 2020-05-24 19:36 | PC.NURSE ---
Pt oriented but vague. Repos q 2 hr, stage 2 on coccyx, barrier cream applied. Pt titrated down to 5L NC, tolerating well. update to family, plan for discharge tomorrow. Pt able to eat by self, just needing set up, swallows pills ok.
[2020-05-24 21:16] LABS: Glucose, Whole Blood 131 mg/dL (60-115)
[2020-05-24] MEDS: Atorvastatin Calcium 40 MG TABLET PO (21:39)
[2020-05-25] VITALS (8 sets, daily range): BP systolic 107–126; BP diastolic 54–61; PULSE 81–92; RESP 19–22; TEMP 36.3–36.6; O2SAT 91–98
[2020-05-25 07:57] LABS: Glucose, Whole Blood 116 mg/dL (60-115)
[2020-05-25] MEDS: QUEtiapine Fumarate 25 MG TABLET PO ×2 (09:00→21:15)
[2020-05-25] MEDS: Isosorbide Mononitrate 60 MG TAB.ER.24H PO (09:00)
[2020-05-25] MEDS: FLUoxetine HCl Oral Solution 20 MG/5 ML SOLUTION PO (09:00)
[2020-05-25] MEDS: Cholecalciferol (Vitamin D3) 25 MCG TABLET 50 MCG PO (09:00)
[2020-05-25] MEDS: Nystatin Powder 15 GM BOTTLE 1 APPL TOPICAL ×2 (10:35→21:16)
[2020-05-25] MEDS: Metoprolol Tartrate 25 MG TABLET PO ×2 (10:37→21:15)
[2020-05-25] MEDS: 0.9 % Sodium Chloride Flush 3 ML SYRINGE IVFLUSH ×3 (10:39→21:16)
[2020-05-25] MEDS: Nystatin Cream 15 GM TUBE 1 APPL TOPICAL ×2 (10:39→21:15)
--- NOTE | 2020-05-25 11:21 | P.CDIC_ITS ---
CDI Concurrent Query Service Date: 05/25/20 Documentation Clarification: Please clarify if you are treating a proba ble/suspected/likely or confirmed: Clarity of documentation within the medical record: Sepsis txt Sepsis rule out Please specify if known Provider Response: Other Other Diagnosis: No sepsis PLEASE DO NOT DELETE/MODIFY EXISTING CONTENT Additional information is needed in order to code to the highest accuracy and appropriate Severity of Illness (SOI). Please clarify the information noted below in your progress notes and discharge summary. Risk Factors/Clinical Indicators/Treatments Oncology note 05/20 - probably related to recent infection, sepsis as well as use of vancomycin which can cause immune mediated thrombocytopenia. PN: 05/06 - Staph aureus bacteremia, b/c positive for staph aureus, concern for infected fistula or IV line. ID: 10 day positive Covid test, Bacteremia due to staphylococcus probable dialysis catheter concern, most likley cause of bacteremia. CDS: Fay Carter CCS, CDIS Contact Number: [phone] Please Review the information above and exercise your independent professional judgment in responding to the query. If you concur, pleas document in the PROGRESS NOTES and DISCHARGE SUMMARY. If you do not agree with the query, please document in the query above. THIS QUERY IS PART OF THE PERMANENT MEDICAL RECORD
[2020-05-25 12:19] LABS: Glucose, Whole Blood 143 mg/dL (60-115)
--- NOTE | 2020-05-25 14:18 | MHC.CLN ---
F/U PO INTAKE 50% AVG DIET RX: 1800DM-WILL ADD 2GM NA R/T ESRD RE-START BREANNA AND ENSURE CLEAR TID TO SUPPORT WOUND HEALING FOLLOWING
--- NOTE | 2020-05-25 16:51 | HO.PM.IMPN ---
Subjective Subjective Date of Service: 05/25/20 Interval History: the patient was seen and evaluated this morning Laying in bed, feels comfortable Denies any fever, chills or shortness of breath No reported other overnight events. Still requiring O2 supplement Systemic review: No fever, chills or weakness No chest pain, palpitation No shortness of breath or coughing No abdominal pain, nausea or vomiting No urinary symptoms No any rash or wounds Physical Exam Vital Signs: Vital Signs: Last Vital Signs Temp 97.9 F 05/25/20 15:49 Pulse 85 05/25/20 15:49 Resp 20 05/25/20 15:49 BP 114/56 L 05/25/20 15:49 Pulse Ox 98 05/25/20 15:49 Body Mass Index 33.7 Constitutional : Alert, oriented, mild respiratory distress Neck : Normal inspection, Supple Cardiovascular : RRR, S1 S2, no lower extremity edema Respiratory : Decreased bilateral air entry, no crackles, wheezes or rhonchi Gastrointestinal: soft, lax, Normal bowel sounds, Non tender Skin : Warm/Dry, No rash Neurological : Alert & oriented x3, No focal deficit Objective Data Current Medications Generic Name Dose Route Start Last Admin Trade Name Freq PRN Reason Stop Dose Admin Atorvastatin Calcium 40 mg 05/05/20 21:00 05/24/20 21:39 Atorvastatin Calcium 40 Mg Tablet PO 40 mg BEDTIME OPAL Administration Docusate Sodium 100 mg 05/05/20 01:14 Docusate Sodium 100 Mg Capsule PO DAILY PRN Constipation Fluoxetine HCl 20 mg 05/05/20 09:00 05/25/20 09:00 Fluoxetine Hcl Oral Solution 20 Mg/5 Ml Solution PO 20 mg DAILY OPAL Administration Cefazolin Sodium/Dextrose 2 gm in 50 mls @ 100 mls/hr 05/21/20 16:45 05/23/20 18:40 Ancef IV Infused [id number] [facility] Infusion Sodium Chloride 500 mls @ 20 mls/hr 05/22/20 15:45 05/24/20 14:11 Ns IVCONT Not Given .Q24H [facility] Insulin Human Lispro 0 unit 05/05/20 11:30 05/25/20 10:40 Insulin Lispro 100 Unit/Ml 3 Ml Vial SUBCUT Not Given QIDACHS [facility] Protocol Isosorbide Mononitrate 60 mg 05/05/20 09:00 05/25/20 09:00 Isosorbide Mononitrate 60 Mg Tab.Er.24h PO [address] [facility] Administration Protocol Loperamide HCl 2 mg 05/15/20 13:44 05/15/20 16:53 Loperamide Hcl 2 Mg Capsule PO 2 mg Q6H PRN Administration Diarrhea Metoprolol Tartrate 25 mg 05/05/20 09:00 05/25/20 10:37 Metoprolol Tartrate 25 Mg Tablet PO [address] [facility] Administration Protocol Nystatin 1 appl 05/16/20 11:15 05/25/20 10:35 Nystatin Powder 15 Gm Bottle TOPICAL 1 appl BID OPAL Administration Protocol Nystatin 1 appl 05/19/20 21:00 05/25/20 10:39 Nystatin Cream 15 Gm Tube TOPICAL [address] [facility] Administration Protocol Ondansetron HCl 4 mg 05/05/20 01:14 05/17/20 06:42 Ondansetron Hcl 4 Mg/2 Ml Vial IVPUSH 4 mg Q8H PRN Administration Nausea and Vomiting Quetiapine Fumarate 25 mg 05/09/20 21:00 05/24/20 21:40 Quetiapine Fumarate 25 Mg Tablet PO 25 mg BEDTIME OPAL Administration Quetiapine Fumarate 25 mg 05/09/20 09:15 05/25/20 09:00 Quetiapine Fumarate 25 Mg Tablet PO [address] [facility] Administration Sodium Chloride 3 ml 05/05/20 01:14 05/25/20 10:39 0.9 % Sodium Chloride Flush 3 Ml Syringe IVFLUSH [address] [facility] Administration Vitamin D 50 mcg 05/05/20 09:00 05/25/20 09:00 Cholecalciferol (Vitamin D3) 25 Mcg Tablet PO [address] [facility] Administration Labs CBC & Chem 7: 05/23/20 05:44 05/24/20 05:44 Microbiology Microbiology Results: Microbiology 05/09/20 10:20 Blood - Venous Blood Culture - Final No growth after 5 days. 05/09/20 10:20 Blood - Venous Blood Culture - Final No growth after 5 days. 05/07/20 04:01 Blood - Venous Blood Culture - Final Staphylococcus aureus 05/07/20 04:01 Blood - Venous Blood Culture - Final No growth after 5 days. 05/05/20 05:25 Blood - Venous Blood Culture - Final Staphylococcus aureus 05/05/20 05:25 Blood - Venous Blood Culture - Final Staphylococcus aureus 05/04/20 13:40 Blood - Venous Blood Culture - Final Staphylococcus aureus 05/04/20 13:36 Blood - Venous Blood Culture - Final Staphylococcus aureus Assessment and Plan (1) Bacteremia due to Staphylococcus: Status: Acute (2) Respiratory failure with hypoxia: Status: Acute (3) Acute exacerbation of CHF (congestive heart failure): Status: Acute (4) COVID-19: Status: Acute (5) ESRD (end stage renal disease): Status: Acute (6) Thrombocytopenia: Status: Acute Assessment and Plan: 69-year-old female with past medical history of COPD as well as CHF who presented to the hospital with acute hypoxic respiratory failure. Patient was also recently diagnosed with COVID-19 on 04/24 Acute on chronic hypoxic respiratory failure secondary to COVID-19 pneumonia , CHF and ESRD with fluid overload Tested positive COVID-19 on 04/24, patient hypoxemia improving continue to wean oxygen Completed decadron Not a candidate for remdesivir/plasma given when she tested positive Staph aureus bacteremia - mssa dialysis cath removed, repeat blood cx negative 05/09, now permacath replaced 05/22/2020 changed to ancef 2gm post hd Can be discharged with vancomycin delivered at dialysis day of antibiotics, end jun 19, 2020 ESRD on dialysis HD Hypoglycemia event, uncontrolled DM ISS Acute inpatient delirium resolved,Continue Seroquel b.i.d. Diastolic CHF exacerbation volume status improved, continue dialysis COPD exacerbation resolved, completed steroid course,inhalers CAD continue Metoprolol, Plavix on hold for procedure Thrombocytopenia has been low in the past,maybe acute worsening due to COVID/bacteremia, or vanc, now on ancef dispo - family wants patient home, will need to wean o2 down first
[2020-05-25 16:53] LABS: Glucose, Whole Blood 129 mg/dL (60-115)
[2020-05-25 20:58] LABS: Glucose, Whole Blood 123 mg/dL (60-115)
[2020-05-25] MEDS: Atorvastatin Calcium 40 MG TABLET PO (21:15)
[2020-05-26] VITALS (11 sets, daily range): BP systolic 82–138; BP diastolic 46–64; PULSE 76–100; RESP 17–20; TEMP 36.2–36.9; O2SAT 75–100
--- NOTE | 2020-05-26 | PC.NURSE ---
Patient noted to be stating at 99% on 6L NC. Titrated down to 5L NC. Tolerating well , patient comfortable in no distress. Will continue to monitor.
[2020-05-26 06:48] LABS: Red Blood Count 2.29 X10*6/uL (4.20-5.50)
[2020-05-26 06:49] LABS: Hematocrit 22.1 % (37-47); Hemoglobin 7.3 g/dl (12.0-16.0); Mean Corpuscular Hemoglobin 31.9 pg (27.0-33.0); Mean Corpuscular Volume 96.5 fL (80-98); Red Cell Distribution Width 15.9 % (11.0-16.0); White Blood Count 5.3 X10*3/uL (4.8-10.8)
[2020-05-26 07:29] LABS: Platelet Count 30 X10*3/uL (160-400)
[2020-05-26 07:30] LABS: PLT ABN DIST 1
[2020-05-26 07:38] LABS: Anion Gap 17 (12-20); Blood Urea Nitrogen 36 mg/dL (9-16); Calcium 6.9 mg/dL (8.4-10.2); Carbon Dioxide 23 mmol/L (22-29); Chloride 104 mmol/L (96-108); Creatinine Clr Calc Pharmacy 11.6; Estimated Glomerular Filt Rate 10; Glucose Random 114 mg/dL (60-115); Potassium 4.3 mmol/l (3.3-5.1); Sodium 140 mmol/L (135-145)
[2020-05-26 08:09] LABS: Glucose, Whole Blood 93 mg/dL (60-115)
[2020-05-26] MEDS: FLUoxetine HCl Oral Solution 20 MG/5 ML SOLUTION PO (09:57)
[2020-05-26] MEDS: Cholecalciferol (Vitamin D3) 25 MCG TABLET 50 MCG PO (09:57)
[2020-05-26] MEDS: QUEtiapine Fumarate 25 MG TABLET PO ×2 (09:57→22:23)
[2020-05-26] MEDS: Metoprolol Tartrate 25 MG TABLET PO ×2 (10:00→22:20)
[2020-05-26] MEDS: Isosorbide Mononitrate 60 MG TAB.ER.24H PO (10:00)
[2020-05-26] MEDS: Nystatin Cream 15 GM TUBE 1 APPL TOPICAL ×2 (10:01→22:22)
[2020-05-26] MEDS: Nystatin Powder 15 GM BOTTLE 1 APPL TOPICAL ×2 (10:01→22:22)
[2020-05-26 11:26] LABS: Glucose, Whole Blood 140 mg/dL (60-115)
--- NOTE | 2020-05-26 16:26 | HO.PM.IMPN ---
Subjective Subjective Date of Service: 05/26/20 Interval History: the patient was seen and evaluated this morning Laying in bed, feels comfortable Denies any fever, chills or shortness of breath No reported other overnight events. Still requiring O2 supplement Systemic review: No fever, chills or weakness No chest pain, palpitation No shortness of breath or coughing No abdominal pain, nausea or vomiting No urinary symptoms No any rash or wounds Physical Exam Vital Signs: Vital Signs: Last Vital Signs Temp 97.8 F 05/26/20 15:51 Pulse 100 05/26/20 15:51 Resp 19 05/26/20 15:51 BP 123/61 05/26/20 15:51 Pulse Ox 90 L 05/26/20 15:51 Body Mass Index 33.7 Constitutional : Alert, oriented, mild respiratory distress Neck : Normal inspection, Supple Cardiovascular : RRR, S1 S2, no lower extremity edema Respiratory : Decreased bilateral air entry, no crackles, wheezes or rhonchi Gastrointestinal: soft, lax, Normal bowel sounds, Non tender Skin : Warm/Dry, No rash Neurological : Alert & oriented x3, No focal deficit Objective Data Current Medications Generic Name Dose Route Start Last Admin Trade Name Freq PRN Reason Stop Dose Admin Atorvastatin Calcium 40 mg 05/05/20 21:00 05/25/20 21:15 Atorvastatin Calcium 40 Mg Tablet PO 40 mg BEDTIME OPAL Administration Docusate Sodium 100 mg 05/05/20 01:14 Docusate Sodium 100 Mg Capsule PO DAILY PRN Constipation Fluoxetine HCl 20 mg 05/05/20 09:00 05/26/20 09:57 Fluoxetine Hcl Oral Solution 20 Mg/5 Ml Solution PO 20 mg DAILY OPAL Administration Cefazolin Sodium/Dextrose 2 gm in 50 mls @ 100 mls/hr 05/21/20 16:45 05/23/20 18:40 Ancef IV Infused [id number] [facility] Infusion Insulin Human Lispro 0 unit 05/05/20 11:30 05/26/20 11:28 Insulin Lispro 100 Unit/Ml 3 Ml Vial SUBCUT Not Given QIDACHS [facility] Protocol Isosorbide Mononitrate 60 mg 05/05/20 09:00 05/26/20 10:00 Isosorbide Mononitrate 60 Mg Tab.Er.24h PO 60 mg DAILY OPAL Administration Protocol Loperamide HCl 2 mg 05/15/20 13:44 05/15/20 16:53 Loperamide Hcl 2 Mg Capsule PO 2 mg Q6H PRN Administration Diarrhea Metoprolol Tartrate 25 mg 05/05/20 09:00 05/26/20 10:00 Metoprolol Tartrate 25 Mg Tablet PO 25 mg BID OPAL Administration Protocol Nystatin 1 appl 05/16/20 11:15 05/26/20 10:01 Nystatin Powder 15 Gm Bottle TOPICAL 1 appl BID OPAL Administration Protocol Nystatin 1 appl 05/19/20 21:00 05/26/20 10:01 Nystatin Cream 15 Gm Tube TOPICAL 1 appl BID OPAL Administration Protocol Ondansetron HCl 4 mg 05/05/20 01:14 05/17/20 06:42 Ondansetron Hcl 4 Mg/2 Ml Vial IVPUSH 4 mg Q8H PRN Administration Nausea and Vomiting Quetiapine Fumarate 25 mg 05/09/20 21:00 05/25/20 21:15 Quetiapine Fumarate 25 Mg Tablet PO 25 mg BEDTIME OPAL Administration Quetiapine Fumarate 25 mg 05/09/20 09:15 05/26/20 09:57 Quetiapine Fumarate 25 Mg Tablet PO 25 mg DAILY [facility] Administration Sodium Chloride 3 ml 05/05/20 01:14 05/26/20 09:30 0.9 % Sodium Chloride Flush 3 Ml Syringe IVFLUSH Not Given QSHIFT [facility] Vitamin D 50 mcg 05/05/20 09:00 05/26/20 09:57 Cholecalciferol (Vitamin D3) 25 Mcg Tablet PO 50 mcg DAILY OPAL Administration Labs CBC & Chem 7: 05/26/20 05:36 05/26/20 05:36 Microbiology Microbiology Results: Microbiology 05/09/20 10:20 Blood - Venous Blood Culture - Final No growth after 5 days. 05/09/20 10:20 Blood - Venous Blood Culture - Final No growth after 5 days. 05/07/20 04:01 Blood - Venous Blood Culture - Final Staphylococcus aureus 05/07/20 04:01 Blood - Venous Blood Culture - Final No growth after 5 days. 05/05/20 05:25 Blood - Venous Blood Culture - Final Staphylococcus aureus 05/05/20 05:25 Blood - Venous Blood Culture - Final Staphylococcus aureus 05/04/20 13:40 Blood - Venous Blood Culture - Final Staphylococcus aureus 05/04/20 13:36 Blood - Venous Blood Culture - Final Staphylococcus aureus Assessment and Plan (1) Bacteremia due to Staphylococcus: Status: Acute (2) Respiratory failure with hypoxia: Status: Acute (3) Acute exacerbation of CHF (congestive heart failure): Status: Acute (4) COVID-19: Status: Acute (5) ESRD (end stage renal disease): Status: Acute (6) Thrombocytopenia: Status: Acute Assessment and Plan: 69-year-old female with past medical history of COPD as well as CHF who presented to the hospital with acute hypoxic respiratory failure. Patient was also recently diagnosed with COVID-19 on 04/24 Acute on chronic hypoxic respiratory failure secondary to COVID-19 pneumonia , CHF and ESRD with fluid overload Tested positive COVID-19 on 04/24, patient hypoxemia improving continue to wean oxygen Completed decadron Not a candidate for remdesivir/plasma given when she tested positive Started incentive spirometry Staph aureus bacteremia - mssa dialysis cath removed, repeat blood cx negative 05/09, now permacath replaced 05/22/2020 changed to ancef 2gm post hd Can be discharged with vancomycin delivered at dialysis day of antibiotics, end jun 19, 2020 ESRD on dialysis HD Hypoglycemia event, uncontrolled DM ISS Acute inpatient delirium resolved,Continue Seroquel b.i.d. Diastolic CHF exacerbation volume status improved, continue dialysis COPD exacerbation resolved, completed steroid course,inhalers CAD continue Metoprolol, Plavix on hold for procedure Thrombocytopenia has been low in the past,maybe acute worsening due to COVID/bacteremia, or vanc, now on ancef dispo - family wants patient home, will need to wean o2 down first and try to get her home oxygen
[2020-05-26 16:32] LABS: Glucose, Whole Blood 151 mg/dL (60-115)
[2020-05-26] MEDS: 0.9 % Sodium Chloride Flush 3 ML SYRINGE IVFLUSH (17:11)
[2020-05-26] MEDS: Insulin Lispro 100 UNIT/ML 3 ML VIAL SUBCUT (17:11)
[2020-05-26] MEDS: ceFAZolin Sodium/Dextrose,Iso 2 GM/50 ML PIGGYBACK IV (17:12)
--- NOTE | 2020-05-26 19:47 | PM.PNNEP ---
Subjective Subjective Date of Service: 05/31/20 Interval history: t seen and examiend. event snoted currently on hd Physical Exam Vital Signs: Vital Signs: Last Vital Signs Temp 98.1 F 05/26/20 19:18 Pulse 100 05/26/20 19:18 Resp 19 05/26/20 19:18 BP 82/46 L 05/26/20 19:18 Pulse Ox 94 05/26/20 19:18 Body Mass Index 33.7 Const: Other: General - no acute distress, appears comfortable Cardiovascular - regular rate and rhythm, S1-S2 Lungs - no respiratory distress, diminished breath sound at bases Abdomen - soft, nontender, no rebound or guarding Extremities - no edema bilaterally Neuro - awake and alert, no focal deficits skin with multiple bruises General: cooperative, comfortable, no acute distress and ill appearing Orientation/consciousness: oriented to person, oriented to place and patient oriented x3 HENMT: Head: Yes normal to inspection, Yes normocephalic and Yes atraumatic Eyes: General: appearance normal, both eyes and all related structures Neck: Other: [facility] HD cath + Neck: Yes supple Resp: Other: Tachypneic, coughing while were in the room Effort & Inspection: normal respiratory effort Auscultation: rhonchi and diminished lung sounds Cardio: Other: General - no acute distress, appears comfortable Cardiovascular - regular rate and rhythm, S1-S2 Lungs - no respiratory distress, diminished breath sound at bases Abdomen - soft, nontender, no rebound or guarding Extremities - no edema bilaterally Neuro - awake and alert, no focal deficits skin with multiple bruises Rate: regular rate Rhythm: regular rhythm Heart sounds: S1 normal heart sound present, S2 normal heart sound present and no rubs GI: Inspection: Yes normal to inspection Palpation (GI): Soft to palpation and nontender Auscultation: normal bowel sounds Skin: General skin exam: no rashes or lesions noted Neuro: General: oriented to person, oriented to place, patient oriented x3 and moves all extremities Cognition (Neuro): normal cognition Motor exam (neuro): No Asterixis during motor activity present Extrem: General: Yes normal to inspection, Yes no pedal edema and Yes edema Right upper extremity: no edema Left upper extremity: no edema Objective Data Labs CBC & Chem 7: 05/30/20 05:40 05/30/20 05:40 Labs: Laboratory Results - last 24 hr 05/25/20 05/26/20 05/26/20 20:53 05:36 05:36 WBC 5.3 RBC 2.29 L Hgb 7.3 L Hct 22.1 L MCV 96.5 MCH 31.9 MCHC 33.0 RDW 15.9 Plt Count 30 L D MPV Not Reportable Absolute Nucleated RBC 0.000 Nucleated RBC % (auto) 0.0 Sodium 140 Potassium 4.3 Chloride 104 Carbon Dioxide 23 Anion Gap 17 BUN 36 H Creatinine 4.52 H* Estim Creat Clear Calc 11.6 Estimated GFR 10 POC Glucose 123 H Random Glucose 114 Calcium 6.9 L 05/26/20 05/26/20 05/26/20 08:05 11:18 16:29 WBC RBC Hgb Hct MCV MCH MCHC RDW Plt Count MPV Absolute Nucleated RBC Nucleated RBC % (auto) Sodium Potassium Chloride Carbon Dioxide Anion Gap BUN Creatinine Estim Creat Clear Calc Estimated GFR POC Glucose 93 140 H 151 H Random Glucose Calcium Microbiology Microbiology Results: Microbiology 05/09/20 10:20 Blood - Venous Blood Culture - Final No growth after 5 days. 05/09/20 10:20 Blood - Venous Blood Culture - Final No growth after 5 days. 05/07/20 04:01 Blood - Venous Blood Culture - Final Staphylococcus aureus 05/07/20 04:01 Blood - Venous Blood Culture - Final No growth after 5 days. 05/05/20 05:25 Blood - Venous Blood Culture - Final Staphylococcus aureus 05/05/20 05:25 Blood - Venous Blood Culture - Final Staphylococcus aureus 05/04/20 13:40 Blood - Venous Blood Culture - Final Staphylococcus aureus 05/04/20 13:36 Blood - Venous Blood Culture - Final Staphylococcus aureus Assessment & Plan Assessment and plan (1) Bacteremia: Status: Acute (2) ESRD (end stage renal disease): Status: Acute (3) COVID-19: Status: Acute (4) Anemia: Problem details: Marked anemia: consider transfusion as well as the procrit Status: Acute Assessment and Plan: esrd; hd tts anemia mssa bactermia from line infection; s/p removal and new pcath placed after bacteremia reoslved ( h/o covid rec; d/c planning; cont hd3x/wk; procritas ordered; abx s per id Time Spent With Patient Time: Total time spent is greater than 50% in coordination of care (as documented) at patient's floor/unit and/or counseling patient:
[2020-05-26 19:52] LABS: Glucose, Whole Blood 140 mg/dL (60-115)
[2020-05-26] MEDS: Atorvastatin Calcium 40 MG TABLET PO (22:21)
[2020-05-27] VITALS (10 sets, daily range): BP systolic 85–118; BP diastolic 50–56; PULSE 80–95; RESP 18; TEMP 36.6–36.9; O2SAT 90–98; BMI 33.9
[2020-05-27] MEDS: ondansetron HCL 4 MG/2 ML VIAL IVPUSH (01:45)
[2020-05-27] MEDS: 0.9 % Sodium Chloride Flush 3 ML SYRINGE IVFLUSH ×4 (01:45→21:20)
--- NOTE | 2020-05-27 07:09 | HO.HEMONCTE1 ---
Medical Summary - Medical Summary Date of Service: 05/27/20 Review of Systems - Neurologic Reports behavioral changes Home Medications and Allergies Current Medications: Current Medications Generic Name Dose Route Start Last Admin Trade Name Palmira PRN Reason Stop Dose Admin Atorvastatin Calcium 40 mg 05/05/20 21:00 05/26/20 22:21 Atorvastatin Calcium 40 Mg Tablet PO 40 mg BEDTIME OPAL Administration Docusate Sodium 100 mg 05/05/20 01:14 Docusate Sodium 100 Mg Capsule PO DAILY PRN Constipation Fluoxetine HCl 20 mg 05/05/20 09:00 05/26/20 09:57 Fluoxetine Hcl Oral Solution 20 Mg/5 Ml Solution PO 20 mg DAILY OPAL Administration Cefazolin Sodium/Dextrose 2 gm in 50 mls @ 100 mls/hr 05/21/20 16:45 05/26/20 18:29 Ancef IV Infused TuThSa@3435 OPAL Infusion Insulin Human Lispro 0 unit 05/05/20 11:30 05/26/20 22:22 Insulin Lispro 100 Unit/Ml 3 Ml Vial SUBCUT Not Given QIDACHS [facility] Protocol Isosorbide Mononitrate 60 mg 05/05/20 09:00 05/26/20 10:00 Isosorbide Mononitrate 60 Mg Tab.Er.24h PO 60 mg DAILY OPAL Administration Protocol Loperamide HCl 2 mg 05/15/20 13:44 05/15/20 16:53 Loperamide Hcl 2 Mg Capsule PO 2 mg Q6H PRN Administration Diarrhea Metoprolol Tartrate 25 mg 05/05/20 09:00 05/26/20 22:20 Metoprolol Tartrate 25 Mg Tablet PO 25 mg BID OPAL Administration Protocol Nystatin 1 appl 05/16/20 11:15 05/26/20 22:22 Nystatin Powder 15 Gm Bottle TOPICAL 1 appl BID OPAL Administration Protocol Nystatin 1 appl 05/19/20 21:00 05/26/20 22:22 Nystatin Cream 15 Gm Tube TOPICAL 1 appl BID OPAL Administration Protocol Ondansetron HCl 4 mg 05/05/20 01:14 05/27/20 01:45 Ondansetron Hcl 4 Mg/2 Ml Vial IVPUSH 4 mg Q8H PRN Administration Nausea and Vomiting Quetiapine Fumarate 25 mg 05/09/20 21:00 05/26/20 22:23 Quetiapine Fumarate 25 Mg Tablet PO 25 mg BEDTIME OPAL Administration Quetiapine Fumarate 25 mg 12/26/20 09:15 05/26/20 09:57 Quetiapine Fumarate 25 Mg Tablet PO 25 mg DAILY OPAL Administration Sodium Chloride 3 ml 05/05/20 01:14 05/27/20 01:45 0.9 % Sodium Chloride Flush 3 Ml Syringe IVFLUSH 3 ml QSHIFT OPAL Administration Vitamin D 50 mcg 05/05/20 09:00 05/26/20 09:57 Cholecalciferol (Vitamin D3) 25 Mcg Tablet PO 50 mcg DAILY OPAL Administration Home Medications Medication Instructions Recorded Confirmed Type atorvastatin 40 mg PO BEDTIME 04/24/20 05/04/20 History bumetanide 4 mg PO SUTUTHSA@0800,1700 04/24/20 05/04/20 History cholecalciferol (vitamin D3) 50 mcg PO QAM 04/24/20 05/04/20 History clopidogrel 75 mg PO BEDTIME 04/24/20 05/04/20 History fluoxetine 5 ml PO DAILY 04/24/20 05/04/20 History isosorbide mononitrate 60 mg PO QAM 04/24/20 05/04/20 History metoprolol tartrate 25 mg PO BID 04/24/20 05/04/20 History lorazepam 0.5 mg PO DAILY PRN 05/04/20 05/04/20 History quetiapine 25 mg PO BEDTIME PRN 05/04/20 05/04/20 History umeclidinium-vilanterol [Anoro 1 puff INHALATION DAILY 05/04/20 05/04/20 History Ellipta] Allergies Allergy/AdvReac Type Severity Reaction Status Date / Time Penicillins Allergy Severe Anaphylaxis, Verified 05/13/20 12:33 hives acetaminophen [From TYLENOL] Allergy Unknown Unknown Verified 05/13/20 12:36 aspirin [ASPIRIN] Allergy Unknown rash, Verified 05/13/20 12:33 stomach upset diazepam [From VALIUM] Allergy Unknown RESP Verified 04/24/20 20:22 FAILURE penicillin V Allergy Unknown edema Verified 11/21/19 00:00 metformin [Metformin] AdvReac Mild DIARRHEA Verified 04/24/20 20:22 Exam Vital signs: Vital Signs Temp 98.4 F 05/27/20 03:47 Pulse 93 05/27/20 03:47 Resp 18 05/27/20 03:47 BP 118/54 L 05/27/20 03:47 Pulse Ox 98 05/27/20 03:47 Intake & Output 05/26/20 05/27/20 05/27/20 18:59 06:59 18:59 Intake Total 290 / 890 600 / 890 Balance 290 / 890 600 / 890 Intake: Intake, Oral Amount 240 / 840 600 / 840 Intake, IV Amount 50 / 50 ceFAZolin Sodium/Dextrose,Iso 2 50 / 50 gm In 50 ml @ 100 mls/hr IV TuThSa@1645 [facility] Rx#:[id number] Other: Breakfast % Eaten 100% Lunch % Eaten 100% Evening Snack % Eaten 100 Number of Bowel Movements 1 Last Bowel Movement 05/26/20 Stool Bedpan Stool Amount Small Stool Color Brown Stool Consistency Pasty Weight 84.2 kg Weight 84.2 kg Body Mass Index 33.9 - Constitutional Present: no acute distress - Routine HEENT Exam Head: Present: atraumatic - Routine Neck Exam Present: full ROM - Routine Cardiovascular Exam Cardiovascular: Present: RRR - Routine Abdominal Exam Present: diminished bowel sounds - Routine Rectal Exam Patient deferred: visual exam - Routine Extremities Exam Present: nontender - Routine Skin Exam Present: dry - Routine Neurological Exam Present: oriented X3 Data - Labs CBC & Chem 7: 05/26/20 05:36 05/26/20 05:36 Labs: 05/04/20 13:26 Albuterol Sulfate (0.083%) [Ventolin (0.083%)] 5 mg INHALE ONCE ONE Consult Rx Perform Med Rec 1 each MISCELLANE ONCE PRN dexAMETHasone sod phosphate [Decadron] 4 mg IVPUSH ONCE ONE ondansetron HCL [Zofran] 4 mg IVPUSH ONCE ONE 05/04/20 13:27 ECG 12 lead EKG Stat EKG Documentation DIRECTED 05/04/20 13:28 XR chest 1V Stat 05/04/20 13:36 Troponin-I High Sensitivity Stat 05/04/20 13:37 B Type Natriuretic Peptide Stat Complete Blood Count Man Dif Stat Partial Thromboplastin Time Stat Prothrombin Time INR Stat 05/04/20 13:40 Blood Culture X2 [BC] Stat 05/04/20 13:56 Lactic Acid Stat 05/04/20 14:32 Ertapenem Sodium [INVanz] 0.5 gm 0.9 % Sodium Chloride [Ns] 50 ml IV ONCE 05/04/20 14:40 Ertapenem Sodium [INVanz] 1 gm .ROUTE .STK-MED ONE 05/04/20 14:49 Furosemide [Lasix] 40 mg IVPUSH ONCE ONE 05/04/20 14:57 Basic Metabolic Panel Stat Ferritin Stat Lactate Dehydrogenase Stat Lipase Stat Liver Panel Stat Magnesium Stat 05/04/20 16:29 Insulin Regular, Human [Humulin R] 10 unit IVPUSH ONCE ONE 05/04/20 16:30 Insulin Regular/NS [Myxredlin] 100 unit in 100 ml IVCONT 8 mls/hr 05/04/20 16:51 Albuterol Sulfate (0.083%) [Ventolin (0.083%)] 5 mg INHALE ONCE ONE 05/04/20 17:42 Glucose, Whole Blood Routine 05/04/20 17:49 Glucose, Whole Blood Routine 05/04/20 18:26 Glucose, blood poc .Now 05/04/20 18:40 Glucose, Whole Blood Routine 05/04/20 19:29 Glucose, blood poc .Now 05/04/20 19:34 Glucose, Whole Blood Routine 05/04/20 19:45 Insulin Regular, Human [Humulin R] 10 unit IVPUSH ONCE ONE 05/04/20 20:13 Glucose, Whole Blood Routine 05/04/20 20:45 Glucose, blood poc .Now 05/04/20 21:21 Glucose, Whole Blood Routine 05/04/20 22:26 Glucose, Whole Blood Routine 05/04/20 23:41 Glucose, Whole Blood Routine 05/04/20 23:43 Transfer Order Routine 05/05/20 01:14 LORazepam [Ativan] 0.5 mg PO DAILY PRN QUEtiapine Fumarate [SEROquel] 25 mg PO BEDTIME PRN 05/05/20 01:37 Glucose, Whole Blood Routine 05/05/20 04:48 Consult Rx Vancomycin Dosing 1 each MISCELLANE DAILY PRN 05/05/20 05:00 vancomycin HCL 750 mg vancomycin HCL 500 mg 0.9 % Sodium Chloride [Ns] 250 ml IV Q24H 05/05/20 05:21 cefTRIAXone sodium [Rocephin] 1 gm 0.9 % Sodium Chloride [Ns] 50 ml IV NOW 05/05/20 05:25 Basic Metabolic Panel Routine Complete Blood Count Man Dif Routine Blood Culture X2 [BC] Stat 05/05/20 05:26 cefTRIAXone sodium [Rocephin] 1 gm .ROUTE .STK-MED ONE 05/05/20 05:30 vancomycin HCL 1,000 mg 0.9 % Sodium Chloride [Ns] 250 ml IV ONCE 05/05/20 05:40 Legionella Ag Urine Stat Strep Pneumo Ag urine Stat 05/05/20 06:11 vancomycin HCL 1,000 mg .ROUTE .STK-MED ONE 05/05/20 06:15 vancomycin HCL 1,000 mg .ROUTE .STK-MED ONE 05/05/20 08:06 Glucose, Whole Blood Routine 05/05/20 09:00 Furosemide [Lasix] 40 mg IVPUSH BID@0900,1800 dexAMETHasone sod phosphate [Decadron] 4 mg IVPUSH DAILY umeclidinium-vilanterol [Anoro Ellipta] 1 puff INHALE DAILY 05/05/20 Breakfast Diabetic Diet 05/05/20 11:06 Glucose, Whole Blood Routine 05/05/20 11:49 Vancomycin Random Stat 05/05/20 12:05 Insulin Glargine,Hum.rec.anlog [Lantus] 8 unit SUBCUT DAILY 05/05/20 13:00 CA echo transthoracic complete Routine 05/05/20 15:06 Airloss Bed ONCE 05/05/20 Lunch Diabetic Diet 05/05/20 16:22 Glucose, Whole Blood Routine 05/05/20 20:17 Glucose, Whole Blood Routine 05/05/20 21:00 Clopidogrel Bisulfate [Plavix] 75 mg PO BEDTIME 05/06/20 03:07 Consult Rx Vancomycin Dosing 1 each MISCELLANE DAILY PRN 05/06/20 03:15 vancomycin HCL 750 mg vancomycin HCL 500 mg 0.9 % Sodium Chloride [Ns] 250 ml IV Q24H 05/06/20 03:45 vancomycin HCL 750 mg vancomycin HCL 500 mg 0.9 % Sodium Chloride [Ns] 250 ml IV Q24H 05/06/20 04:02 vancomycin HCL 500 mg IV .STK-MED ONE vancomycin HCL 750 mg IV .STK-MED ONE 05/06/20 04:31 Prochlorperazine Edisylate [Compazine] 5 mg IVPUSH ONCE ONE 05/06/20 06:00 cefTRIAXone sodium [Rocephin] 1 gm 0.9 % Sodium Chloride [Ns] 50 ml IV Q24H 05/06/20 06:04 Basic Metabolic Panel DAILY@0600 Complete Blood Count no Diff DAILY@0600 Liver Panel Routine Vancomycin Random Routine 05/06/20 06:30 cefTRIAXone sodium [Rocephin] 1 gm .ROUTE .STK-MED ONE 05/06/20 07:32 Glucose, Whole Blood Routine 05/06/20 10:50 Glucose, Whole Blood Routine 05/06/20 13:42 Vancomycin Trough Routine 05/06/20 Lunch Diabetic Diet 05/06/20 16:26 Glucose, Whole Blood Routine 05/06/20 17:00 Bumetanide [Bumex] 2 mg PO BID@0800,1700 05/06/20 17:19 Vancomycin Random Urgent 05/06/20 18:41 High Flow CONT 05/06/20 20:08 LORazepam [Ativan] 0.5 mg IVPUSH ONCE ONE 05/06/20 20:09 Glucose, Whole Blood Routine 05/07/20 04:01 Basic Metabolic Panel DAILY@0600 Complete Blood Count no Diff DAILY@0600 Prothrombin Time INR DAILY@0600 Vancomycin Random Routine Blood Culture X2 [BC] Routine 05/07/20 07:31 Glucose, Whole Blood Routine 05/07/20 09:40 Complete Blood Count no Diff Routine 05/07/20 11:03 Glucose, Whole Blood Routine 05/07/20 11:35 Lidocaine HCl 1 % MPF [Xylocaine 1 % MPF] 5 ml .ROUTE .STK-MED ONE 05/07/20 13:17 IR cvc remov tunnel wo prt/supervisor loading Routine 05/07/20 14:07 Lidocaine HCl 1 % MPF [Xylocaine 1 % MPF] 5 ml .ROUTE .STK-MED ONE 05/07/20 14:44 Midazolam HCl/PF [Versed] 2 mg .ROUTE .STK-MED ONE Naloxone HCl [Narcan] 0.4 mg .ROUTE .STK-MED ONE fentaNYL citrate/PF [Sublimaze] 50 mcg .ROUTE .STK-MED ONE flumazeniL [Romazicon] 0.05 mg .ROUTE .STK-MED ONE 05/07/20 16:16 Glucose, Whole Blood Routine 05/07/20 16:29 0.9 % Sodium Chloride [Ns] 1,000 ml IV 999 mls/hr Transfer Order Routine 05/07/20 17:32 Transfer Order Routine 05/07/20 17:45 Doxycycline Hyclate [Vibramycin] 100 mg 0.9 % Sodium Chloride [Ns] 250 ml IV Q12H 05/07/20 17:59 Doxycycline Hyclate [Vibramycin] 100 mg IV .STK-MED ONE 05/07/20 18:35 dexAMETHasone sod phosphate [Decadron] 6 mg IVPUSH DAILY 05/07/20 20:18 Glucose, Whole Blood Routine 05/07/20 21:00 Insulin Glargine,Hum.rec.anlog [Lantus] 8 unit SUBCUT BEDTIME 05/08/20 05:10 Doxycycline Hyclate [Vibramycin] 100 mg IV .STK-MED ONE 05/08/20 05:48 Basic Metabolic Panel DAILY@0600 Complete Blood Count no Diff DAILY@0600 05/08/20 07:48 Glucose, Whole Blood Routine 05/08/20 11:47 Glucose, Whole Blood Routine 05/08/20 16:46 Glucose, Whole Blood Routine 05/08/20 16:58 Doxycycline Hyclate [Vibramycin] 100 mg IV .STK-MED ONE 05/08/20 20:17 Glucose, Whole Blood Routine 05/09/20 ECG 12 lead EKG Stat 05/09/20 05:02 Doxycycline Hyclate [Vibramycin] 100 mg IV .STK-MED ONE 05/09/20 06:26 Basic Metabolic Panel DAILY@0600 Complete Blood Count no Diff DAILY@0600 05/09/20 07:52 Glucose, Whole Blood Routine 05/09/20 10:20 Blood Culture X2 [BC] Stat 05/09/20 11:59 Glucose, Whole Blood Routine 05/09/20 16:54 Glucose, Whole Blood Routine 05/09/20 17:28 Doxycycline Hyclate [Vibramycin] 100 mg IV .STK-MED ONE 05/09/20 20:57 Glucose, Whole Blood Routine 05/09/20 23:09 EKG Documentation DIRECTED 05/09/20 23:32 Haloperidol Lactate [Haldol] 2 mg IVPUSH ONCE ONE 05/10/20 04:40 Doxycycline Hyclate [Vibramycin] 100 mg IV .STK-MED ONE 05/10/20 06:02 Basic Metabolic Panel DAILY@0600 05/10/20 08:20 Glucose, Whole Blood Routine 05/10/20 10:25 LORazepam [Ativan] 0.5 mg IVPUSH ONCE ONE 05/10/20 12:09 Glucose, Whole Blood Routine 05/10/20 16:14 Glucose, Whole Blood Routine 05/10/20 17:06 Doxycycline Hyclate [Vibramycin] 100 mg IV .STK-MED ONE 05/10/20 20:28 Glucose, Whole Blood Routine 05/10/20 20:59 QUEtiapine Fumarate [SEROquel] 25 mg PO ONCE ONE 05/11/20 05:22 Basic Metabolic Panel DAILY@0600 05/11/20 05:40 Doxycycline Hyclate [Vibramycin] 100 mg IV .STK-MED ONE 05/11/20 08:06 Glucose, Whole Blood Routine 05/11/20 11:53 Glucose, Whole Blood Routine 05/11/20 15:52 Glucose, Whole Blood Routine 05/11/20 17:00 Doxycycline Hyclate [Vibramycin] 100 mg IV .STK-MED ONE 05/11/20 20:15 Glucose, Whole Blood Routine 05/11/20 21:00 Sodium Bicarbonate [Neut] 1,300 mg PO TID 05/12/20 IR us guide venous access Routine XR chest 1V Stat 05/12/20 05:39 Basic Metabolic Panel DAILY@0600 Complete Blood Count no Diff DAILY@0600 Liver Panel Routine Prothrombin Time INR DAILY@0600 05/12/20 05:54 Doxycycline Hyclate [Vibramycin] 100 mg IV .STK-MED ONE 05/12/20 07:31 Glucose, Whole Blood Routine 05/12/20 08:04 Add Laboratory Test Urgent 05/12/20 08:50 Calcium Gluconate/NaCl,Iso-Osm [Calcium Gluconate] 2 gm in 100 ml IV ONCE 05/12/20 Breakfast NPO Diet 05/12/20 11:16 Glucose, Whole Blood Routine 05/12/20 13:00 IR cvc insert non tunnel Routine propofoL [Diprivan] 200 mg IVPUSH .STK-MED ONE 05/12/20 13:01 Phenylephrine HCL 10 mg .ROUTE .STK-MED ONE 05/12/20 13:46 Heparin Sodium,Porcine 1,000 unit IV .STK-MED ONE Lidocaine HCl 1 % MPF [Xylocaine 1 % MPF] 5 ml .ROUTE .STK-MED ONE 05/12/20 15:21 Lidocaine HCl 1 % MPF [Xylocaine 1 % MPF] 10 ml SUBCUT ONCE ONE 05/12/20 17:04 Glucose, Whole Blood Routine 05/12/20 20:12 Doxycycline Hyclate [Vibramycin] 100 mg IV .[facility] ONE 05/12/20 20:44 Glucose, Whole Blood Routine 05/13/20 05:34 Basic Metabolic Panel DAILY@0600 05/13/20 05:50 Doxycycline Hyclate [Vibramycin] 100 mg IV [facility] ONE 05/13/20 06:59 Glucose, Whole Blood Routine 05/13/20 07:19 Glucose, Whole Blood Routine 05/13/20 07:58 Glucose, Whole Blood Routine 05/13/20 11:16 Glucose, Whole Blood Routine 05/13/20 13:00 Glucose, Whole Blood Routine 05/13/20 16:45 Glucose, Whole Blood Routine 05/13/20 17:56 Doxycycline Hyclate [Vibramycin] 100 mg IV [facility] ONE 05/13/20 21:36 Glucose, Whole Blood Routine 05/14/20 04:59 Doxycycline Hyclate [Vibramycin] 100 mg IV [facility] ONE 05/14/20 05:31 Basic Metabolic Panel DAILY@0600 05/14/20 08:02 Glucose, Whole Blood Routine 05/14/20 Breakfast Diabetic Diet 05/14/20 13:06 vancomycin HCL 750 mg IV .[facility] ONE 05/14/20 14:00 vancomycin HCL 750 mg 0.9 % Sodium Chloride [Ns] 250 ml IV Q48H 05/14/20 Lunch Diabetic Diet 05/14/20 16:12 Glucose, Whole Blood Routine 05/14/20 20:35 Glucose, Whole Blood Routine 05/15/20 06:56 Complete Blood Count no Diff DAILY@0600 05/15/20 07:26 Basic Metabolic Panel DAILY@0600 05/15/20 07:44 Glucose, Whole Blood Routine 05/15/20 12:00 CDiff with Reflex to PCR Routine 05/15/20 12:05 Glucose, Whole Blood Routine 05/15/20 16:04 Glucose, Whole Blood Routine 05/15/20 20:08 Glucose, Whole Blood Routine 05/16/20 07:37 Glucose, Whole Blood Routine 05/16/20 10:51 Basic Metabolic Panel DAILY@0600 Vancomycin Random Routine 05/16/20 12:39 Glucose, Whole Blood Routine 05/16/20 13:26 vancomycin HCL 750 mg IV .STK-MED ONE 05/16/20 16:01 Glucose, Whole Blood Routine 05/16/20 20:27 Glucose, Whole Blood Routine 05/17/20 00:27 Prochlorperazine Edisylate [Compazine] 5 mg IVPUSH ONCE ONE 05/17/20 06:38 Basic Metabolic Panel DAILY@0600 05/17/20 08:06 Glucose, Whole Blood Routine 05/17/20 12:08 Glucose, Whole Blood Routine 05/17/20 16:13 Glucose, Whole Blood Routine 05/17/20 20:30 Glucose, Whole Blood Routine 05/18/20 00:40 Glucose, Whole Blood Routine 05/18/20 01:52 traMADoL HCL [Ultram] 50 mg PO ONCE ONE 05/18/20 06:03 Basic Metabolic Panel DAILY@0600 Complete Blood Count no Diff DAILY@0600 05/18/20 09:10 oxyCODONE HCl Immed Release [Roxicodone] 5 mg PO Q6H PRN 05/18/20 09:23 Glucose, Whole Blood Routine 05/18/20 Breakfast Diabetic Diet NPO Diet 05/18/20 11:29 Glucose, Whole Blood Routine 05/18/20 11:59 propofoL [Diprivan] 200 mg IVPUSH .STK-MED ONE 05/18/20 12:35 Glucose, Whole Blood Routine 05/18/20 Lunch Diabetic Diet 05/18/20 16:37 Glucose, Whole Blood Routine 05/18/20 20:38 Glucose, Whole Blood Routine 05/19/20 08:19 Basic Metabolic Panel DAILY@0600 Vancomycin Random Routine 05/19/20 09:31 Glucose, Whole Blood Routine 05/19/20 11:14 Glucose, Whole Blood Routine 05/19/20 12:47 Potassium Chloride ER [Klor-con] 40 meq PO ONCE ONE 05/19/20 16:32 Glucose, Whole Blood Routine 05/19/20 16:45 vancomycin HCL 1,000 mg 0.9 % Sodium Chloride [Ns] 250 ml IV TuThSa@1645 vancomycin HCL 750 mg 0.9 % Sodium Chloride [Ns] 250 ml IV TuThSa@1645 05/19/20 17:32 vancomycin HCL 1,000 mg .ROUTE .STK-MED ONE 05/19/20 18:50 CDiff with Reflex to PCR Routine 05/19/20 20:34 Glucose, Whole Blood Routine 05/20/20 05:08 Basic Metabolic Panel Routine Complete Blood Count Auto Diff Routine Lactate Dehydrogenase Routine 05/20/20 07:08 Vitamin B12 and Folate Routine 05/20/20 07:29 Glucose, Whole Blood Routine 05/20/20 09:07 Pheresis Platelets Routine Type and Screen Routine 05/20/20 Breakfast NPO Diet 05/20/20 11:56 Glucose, Whole Blood Routine 05/20/20 15:08 Add Laboratory Test Routine 05/20/20 15:11 Complete Blood Count no Diff Stat 05/20/20 15:48 Glucose, Whole Blood Routine 05/20/20 19:39 Glucose, Whole Blood Routine 05/21/20 07:34 Glucose, Whole Blood Routine 05/21/20 08:02 BMP [Basic Metabolic Panel Fasting] Routine Basic Metabolic Panel DAILY@0600 Complete Blood Count Auto Diff Routine Vancomycin Random Routine 05/21/20 11:11 Glucose, Whole Blood Routine 05/21/20 Lunch Diabetic Diet 05/21/20 16:53 Glucose, Whole Blood Routine 05/21/20 20:02 Glucose, Whole Blood Routine 05/22/20 06:08 BMP [Basic Metabolic Panel Fasting] Routine Basic Metabolic Panel DAILY@0600 Complete Blood Count Auto Diff Routine IRON PROFILE Routine SLIDE REVIEW Routine 05/22/20 08:38 Glucose, Whole Blood Routine 05/22/20 Breakfast NPO Diet 05/22/20 13:20 Glucose, Whole Blood Routine 05/22/20 13:54 Atropine Sulfate 1 mg .ROUTE .STK-MED ONE EPINEPHrine [Adrenalin] 1 mg IVPUSH .STK-MED ONE Phenylephrine HCL 1,000 mcg IVPUSH .STK-MED ONE Succinylcholine Chloride [Quelicin] 100 mg IVPUSH .STK-MED ONE ePHEDrine sulfate 50 mg .ROUTE .STK-MED ONE propofoL [Diprivan] 200 mg IVPUSH .STK-MED ONE 05/22/20 13:55 Ketamine HCl/NS 50 mg IVPUSH .STK-MED ONE 05/22/20 14:16 Heparin Sodium,Porcine 1,000 unit IV .STK-MED ONE Lidocaine HCl 1%/Epi 1:100,000 [Xylocaine 1 %-Epi 1:100,000] 20 ml .ROUTE .STK-MED ONE 05/22/20 14:17 Heparin Sodium (Porcine)/NS/PF 1,000 unit in 500 ml IV As directed 05/22/20 14:30 IR cvc insert central tunnel Routine 05/22/20 14:46 ceFAZolin Sodium/Dextrose,Iso [Ancef] 2 gm in 50 ml .ROUTE As directed 05/22/20 15:07 Heparin Sodium,Porcine 1,000 unit IV .STK-MED ONE 05/22/20 Lunch Low Sodium Diet 05/22/20 15:48 Lidocaine HCl 1%/Epi 1:100,000 [Xylocaine 1 %-Epi 1:100,000] 20 ml INFILTRATI ONCE ONE 05/22/20 15:49 Heparin Sodium,Porcine 5,000 unit IV ONCE ONE 05/22/20 16:14 Glucose, Whole Blood Routine 05/22/20 18:07 Add Laboratory Test Urgent 05/22/20 19:42 Glucose, Whole Blood Routine 05/23/20 05:44 BMP [Basic Metabolic Panel Fasting] Routine Complete Blood Count Auto Diff Routine SLIDE REVIEW Routine 05/23/20 08:08 Glucose, Whole Blood Routine 05/23/20 11:59 Glucose, Whole Blood Routine Laboratory Last Values WBC 7.3 X10*3/uL (4.8-10.8) 05/23/20 05:44 RBC 2.31 X10*6/uL (4.20-5.50) L 05/23/20 05:44 Hgb 7.3 g/dl (12.0-16.0) L 05/23/20 05:44 Hct 22.9 % (37-47) L 05/23/20 05:44 MCV 99.1 fL (80-98) H 05/23/20 05:44 MCH 31.6 pg (27.0-33.0) 05/23/20 05:44 MCHC 31.9 g/dl (31.0-35.0) 05/23/20 05:44 RDW 15.6 % (11.0-16.0) 05/23/20 05:44 Plt Count 51 X10*3/uL (160-400) L D 05/23/20 05:44 MPV 13.1 fL (9.4-12.3) H 05/23/20 05:44 Immature Gran % (Auto) 0.8 % (0.0-0.4) H 05/23/20 05:44 Neut % (Auto) 75.7 % (45-73) H 05/23/20 05:44 Lymph % (Auto) 12.1 % (20-40) L 05/23/20 05:44 Bradford % (Auto) 9.6 % (2-11) 05/23/20 05:44 Eos % (Auto) 1.7 % (0-4) 05/23/20 05:44 Baso % (Auto) 0.1 % (0-2) 05/23/20 05:44 Lymph # (Auto) 0.9 X10*3/uL (1.2-4.9) L 05/23/20 05:44 Bradford # (Auto) 0.7 X10*3/uL (0.1-1.2) 05/23/20 05:44 Eos # (Auto) 0.1 X10*3/uL (0.0-0.4) 05/23/20 05:44 Baso # (Auto) 0.0 X10*3/uL (0.0-0.2) 05/23/20 05:44 Abs Immat Gran (auto) 0.06 X10*3/uL (0.00-0.03) H 05/23/20 05:44 Absolute Neuts (auto) 5.5 X10*3/uL (2.0-8.3) 05/23/20 05:44 Absolute Nucleated RBC 0.000 X10*3/uL (0.0-0.012) 05/23/20 05:44 Nucleated RBC % (auto) 0.0 /100WBC (0.0-0.2) 05/23/20 05:44 Neutrophils % (Manual) 68 % (45-73) 05/05/20 05:25 Band Neutrophils % 12 % (3-5) H 05/05/20 05:25 Lymphocytes % (Manual) 9 % (20-40) L 05/05/20 05:25 Monocytes % (Manual) 11 % (2-11) 05/05/20 05:25 Abs Neuts (Manual) 4.1 X10*3/uL (2.2-7.9) 05/05/20 05:25 Lymphocytes # (Manual) 0.5 X10*3/uL (0.6-4.8) L 05/05/20 05:25 Monocytes # (Manual) 0.6 X10*3/uL (0.0-1.2) 05/05/20 05:25 Nucleated RBCs 1 /100WBC (0-0) H 05/04/20 13:37 Platelet Estimate DECREASED (NORMAL) 05/05/20 05:25 Plt Morphology Comment NORMAL 05/05/20 05:25 RBC Morphology NOTED 05/05/20 05:25 Polychromasia 1+ 05/05/20 05:25 Microcytosis 1+ 05/04/20 13:37 Macrocytosis 1+ 05/05/20 05:25 Spherocytes 1+ 05/05/20 05:25 Tear Drop Cells 1+ 05/05/20 05:25 Ovalocytes 1+ 05/05/20 05:25 Sury Cells 1+ 05/04/20 13:37 Acanthocytes (Spur) 1+ 05/05/20 05:25 Schistocytes 1+ 05/04/20 13:37 Smear Tech's Comments VERIFIED 05/23/20 05:44 Smear Path Review SEE NOTE 05/04/20 13:37 PT 11.7 SEC (10.8-13.0) 05/12/20 05:39 INR 1.0 (0.9-1.1) 05/12/20 05:39 APTT 32.4 SEC (24.1-38.0) 05/04/20 13:37 Sodium 139 mmol/L (135-145) 05/23/20 05:44 Potassium 4.5 mmol/l (3.3-5.1) 05/23/20 05:44 Chloride 102 mmol/L (96-108) 05/23/20 05:44 Carbon Dioxide 24 mmol/L (22-29) 05/23/20 05:44 Anion Gap 18 (12-20) 05/23/20 05:44 BUN 24 mg/dL (9-16) H 05/23/20 05:44 Creatinine 3.21 mg/dL (0.5-1.4) H 05/23/20 05:44 Estim Creat Clear Calc 16.2 05/23/20 05:44 Estimated GFR 14 05/23/20 05:44 POC Glucose 126 mg/dL (60-115) H 05/23/20 11:59 Random Glucose Cancelled 05/23/20 05:44 Fasting Glucose 108 mg/dL (60-99) H 05/23/20 05:44 Lactic Acid 2.0 mmol/L (0.5-2.0) 05/04/20 13:56 Calcium 7.0 mg/dL (8.4-10.2) L 05/23/20 05:44 Magnesium 2.2 mg/dL (1.6-2.6) 05/04/20 14:57 Iron 52 mcg/dL (30-160) 05/22/20 06:08 TIBC 87 mcg/dL (228-428) L 05/22/20 06:08 % Saturation 60 % (15-50) H 05/22/20 06:08 Unsat Iron Binding 35 ug/dL 05/22/20 06:08 Ferritin 5660 ng/mL (10-250) H 05/04/20 14:57 Total Bilirubin 0.6 mg/dL (0.0-1.0) 05/12/20 05:39 Direct Bilirubin 0.3 mg/dL (0.0-0.5) 05/12/20 05:39 AST 57 U/L (5-31) H 05/12/20 05:39 ALT 76 U/L (0-31) H 05/12/20 05:39 Alkaline Phosphatase 215 U/L (39-117) H D 05/12/20 05:39 Lactate Dehydrogenase 352 U/L (122-220) H 05/20/20 05:08 Troponin I High Sens 49.0 ng/L (<3.5-17.0) H 05/04/20 13:36 B-Natriuretic Peptide 1054 pg/mL (<100) H 05/04/20 13:37 Total Protein 5.8 g/dL (6.5-8.0) L 05/12/20 05:39 Albumin 2.2 g/dL (3.5-5.0) L 05/12/20 05:39 Lipase 92 U/L (8-78) H 05/04/20 14:57 Vitamin B12 > 2000 pg/mL (200-900) H 05/20/20 07:08 Folate 4.8 ng/mL (> or = 4.0) 05/20/20 07:08 Vancomycin Trough 30.6 mcg/mL (10.0-20.0) H* 05/06/20 13:42 Random Vancomycin 31.0 mcg/mL (15-20) H* 05/21/20 08:02 C. difficile Toxin A&B Negative (Negative) 05/19/20 18:50 C. difficile Antigen Negative (Negative) 05/19/20 18:50 C. difficile Interpret SEE NOTE 05/19/20 18:50 Ur L.pneumophila Ag Not Detected (Not Detected) 05/05/20 05:40 Ur Strep pneumoniae Ag Not Detected (Not Detected) 05/05/20 05:40 Blood Type O Positive 05/20/20 09:07 Antibody Screen NEGATIVE 05/20/20 09:07 - Imaging Radiologist's impression: ITS Impressions Chest X-Ray 05/04/20 13:28 IMPRESSION: Low lung volumes. Mild vascular congestion with some early airspace opacity right upper lobe and left infrahilar region. No overt effusion. Tunnelled Catheter Removal 05/07/20 13:17 IMPRESSION: Successful removal of tunneled right permacatheter. Fluoroscopy time: 4.5 minutes. Dose area product: 1034 cGy-cm2 Chest X-Ray 05/12/20 00:00 IMPRESSION: 12.5 [place] 20 cm in length temporary left internal jugular [place] dialysis catheter placement. EXAMINATION: Chest x-ray CLINICAL INFORMATION: Renal failure. Post portable left internal jugular dialysis catheter placement COMPARISON: None. TECHNIQUE: AP portable chest FINDINGS: The cardiac silhouette is enlarged but stable. There is bilateral multilobar airspace disease that appears unchanged. There is a new left internal jugular dialysis catheter with tip projecting over the caval atrial junction. There is no pleural effusion or pneumothorax. IMPRESSION: Left internal jugular dialysis catheter projects over the cavoatrial junction. No pneumothorax. Guidance Ultrasound 05/12/20 00:00 IMPRESSION: 12.5 Estonian 20 cm in length temporary left internal jugular Mahurkar dialysis catheter placement. EXAMINATION: Chest x-ray CLINICAL INFORMATION: Renal failure. Post portable left internal jugular dialysis catheter placement COMPARISON: None. TECHNIQUE: AP portable chest FINDINGS: The cardiac silhouette is enlarged but stable. There is bilateral multilobar airspace disease that appears unchanged. There is a new left internal jugular dialysis catheter with tip projecting over the caval atrial junction. There is no pleural effusion or pneumothorax. IMPRESSION: Left internal jugular dialysis catheter projects over the cavoatrial junction. No pneumothorax. Insertion Non-Tunneled Catheter 05/12/20 13:00 IMPRESSION: 12.5 Estonian 20 cm in length temporary left internal jugular Mahurkar dialysis catheter placement. EXAMINATION: Chest x-ray CLINICAL INFORMATION: Renal failure. Post portable left internal jugular dialysis catheter placement COMPARISON: None. TECHNIQUE: AP portable chest FINDINGS: The cardiac silhouette is enlarged but stable. There is bilateral multilobar airspace disease that appears unchanged. There is a new left internal jugular dialysis catheter with tip projecting over the caval atrial junction. There is no pleural effusion or pneumothorax. IMPRESSION: Left internal jugular dialysis catheter projects over the cavoatrial junction. No pneumothorax. Insertion Tunneled Catheter 05/22/20 14:30 IMPRESSION: Left internal jugular 14.5 Estonian 28 cm in length palindrome permacath placement. Progress Note: A/P (1) Thrombocytopenia Status: Acute - Time Spent With Patient Total time spent is greater than 50% in coordination of care (as documented) at patient's floor/unit and/or counseling patient:
[2020-05-27 07:23] LABS: Anion Gap 15 (12-20); Blood Urea Nitrogen 20 mg/dL (9-16); Calcium 6.9 mg/dL (8.4-10.2); Carbon Dioxide 30 mmol/L (22-29); Chloride 101 mmol/L (96-108); Creatinine Clr Calc Pharmacy 17.1; Estimated Glomerular Filt Rate 15; Glucose Random 185 mg/dL (60-115); Potassium 3.7 mmol/l (3.3-5.1); Sodium 142 mmol/L (135-145)
[2020-05-27 07:59] LABS: Glucose, Whole Blood 171 mg/dL (60-115)
[2020-05-27] MEDS: Insulin Lispro 100 UNIT/ML 3 ML VIAL SUBCUT (08:12)
[2020-05-27] MEDS: FLUoxetine HCl Oral Solution 20 MG/5 ML SOLUTION PO (08:13)
[2020-05-27] MEDS: QUEtiapine Fumarate 25 MG TABLET PO (08:13)
[2020-05-27] MEDS: Cholecalciferol (Vitamin D3) 25 MCG TABLET 50 MCG PO (08:13)
[2020-05-27] MEDS: Metoprolol Tartrate 25 MG TABLET PO ×2 (08:13→21:19)
[2020-05-27] MEDS: Nystatin Cream 15 GM TUBE 1 APPL TOPICAL ×2 (08:15→21:19)
[2020-05-27] MEDS: Nystatin Powder 15 GM BOTTLE 1 APPL TOPICAL ×2 (08:15→21:20)
--- NOTE | 2020-05-27 11:40 | MHC.CM.PN ---
Per MD rounds Pt will DC to home and resume HD at [facility] MONDAY/MONDAY/MONDAY 11am-3pm. The [facility], [facility] and [facility] are aware that DC is anticipated the next 1-3 days. [facility] will arrange for ABX RX, to be given S/P HD. CM will follow.
[2020-05-27 11:43] LABS: Glucose, Whole Blood 109 mg/dL (60-115)
--- NOTE | 2020-05-27 11:57 | PC.NURSE ---
Pt BP 98/54 manually. This RN made Dr. Ricks aware. No interventions at this time. Will continue to monitor.
--- NOTE | 2020-05-27 13:59 | MHC.CLN ---
F/U PO INTAKE >/=50% SLIGHTLY IMPROVED DIET RX: 1800DM 2GM NA-APPROPRIATE PT RECEIVING BREANNA AND ENSURE CLEAR TID TO SUPPORT WOUND HEALING FOLLOWING
--- NOTE | 2020-05-27 14:20 | HO.PM.IMPN ---
Subjective Subjective Date of Service: 05/27/20 Interval History: The patient was seen and evaluated this morning Laying in bed, looks more tired and sleepy, comfortable though Denies any fever, chills or shortness of breath No reported other overnight events. Systemic review: No fever, chills but reports feeling weakness No chest pain, palpitation No shortness of breath or coughing No abdominal pain, nausea or vomiting No urinary symptoms No any rash or wounds Physical Exam Vital Signs: Vital Signs: Last Vital Signs Temp 98 F 05/27/20 11: Pulse 84 05/27/20 11:22 Resp 18 05/27/20 11:22 BP 98/53 L 05/27/20 11: Pulse Ox 96 05/27/20 11: Body Mass Index 33.9 Constitutional : Alert, oriented, not in distress Neck : Normal inspection, Supple Cardiovascular : RRR, S1 S2, no lower extremity edema Respiratory : Chest moving bilaterally, on nasal cannula, not in distress Gastrointestinal: soft, lax, Normal bowel sounds, Non tender Skin : Warm/Dry, No rash Neurological : Alert & oriented x3, left-sided weakness chronic Objective Data Current Medications Generic Name Dose Route Start Last Admin Trade Name Freq PRN Reason Stop Dose Admin Atorvastatin Calcium 40 mg 05/05/20 21:00 05/26/20 22:21 Atorvastatin Calcium 40 Mg Tablet PO 40 mg BEDTIME OPAL Administration Docusate Sodium 100 mg 05/05/20 01:14 Docusate Sodium 100 Mg Capsule PO DAILY PRN Constipation Fluoxetine HCl 20 mg 05/05/20 09:00 05/27/20 08:13 Fluoxetine Hcl Oral Solution 20 Mg/5 Ml Solution PO 20 mg DAILY OPAL Administration Cefazolin Sodium/Dextrose 2 gm in 50 mls @ 100 mls/hr 05/21/20 16:45 05/26/20 18:29 Ancef IV Infused [id number] OPAL Infusion Insulin Human Lispro 0 unit 05/05/20 11:30 05/27/20 12:20 Insulin Lispro 100 Unit/Ml 3 Ml Vial SUBCUT Not Given QIDACHS [facility] Protocol Isosorbide Mononitrate 60 mg 05/05/20 09:00 05/27/20 08:27 Isosorbide Mononitrate 60 Mg Tab.Er.24h PO Not Given DAILY [facility] Protocol Loperamide HCl 2 mg 05/15/20 13:44 05/15/20 16:53 Loperamide Hcl 2 Mg Capsule PO 2 mg Q6H PRN Administration Diarrhea Metoprolol Tartrate 25 mg 05/05/20 09:00 05/27/20 08:13 Metoprolol Tartrate 25 Mg Tablet PO 25 mg BID OPAL Administration Protocol Nystatin 1 appl 05/16/20 11:15 05/27/20 08:15 Nystatin Powder 15 Gm Bottle TOPICAL 1 appl BID OPAL Administration Protocol Nystatin 1 appl 05/19/20 21:00 05/27/20 08:15 Nystatin Cream 15 Gm Tube TOPICAL 1 appl BID OPAL Administration Protocol Ondansetron HCl 4 mg 05/05/20 01:14 05/27/20 01:45 Ondansetron Hcl 4 Mg/2 Ml Vial IVPUSH 4 mg Q8H PRN Administration Nausea and Vomiting Quetiapine Fumarate 25 mg 05/09/20 21:00 05/26/20 22:23 Quetiapine Fumarate 25 Mg Tablet PO 25 mg BEDTIME OPAL Administration Quetiapine Fumarate 25 mg 05/09/20 09:15 05/27/20 08:13 Quetiapine Fumarate 25 Mg Tablet PO 25 mg DAILY OPAL Administration Sodium Chloride 3 ml 05/05/20 01:14 05/27/20 08:13 0.9 % Sodium Chloride Flush 3 Ml Syringe IVFLUSH 3 ml QSHIFT [facility] Administration Vitamin D 50 mcg 05/05/20 09:00 05/27/20 08:13 Cholecalciferol (Vitamin D3) 25 Mcg Tablet PO 50 mcg DAILY OPAL Administration Labs CBC & Chem 7: 05/26/20 05:36 05/27/20 06:17 Microbiology Microbiology Results: Microbiology 05/09/20 10:20 Blood - Venous Blood Culture - Final No growth after 5 days. 05/09/20 10:20 Blood - Venous Blood Culture - Final No growth after 5 days. 05/07/20 04:01 Blood - Venous Blood Culture - Final Staphylococcus aureus 05/07/20 04:01 Blood - Venous Blood Culture - Final No growth after 5 days. 05/05/20 05:25 Blood - Venous Blood Culture - Final Staphylococcus aureus 05/05/20 05:25 Blood - Venous Blood Culture - Final Staphylococcus aureus 05/04/20 13:40 Blood - Venous Blood Culture - Final Staphylococcus aureus 05/04/20 13:36 Blood - Venous Blood Culture - Final Staphylococcus aureus Assessment and Plan (1) Bacteremia due to Staphylococcus: Status: Acute (2) Respiratory failure with hypoxia: Status: Acute (3) Acute exacerbation of CHF (congestive heart failure): Status: Acute (4) COVID-19: Status: Acute (5) ESRD (end stage renal disease): Status: Acute (6) Thrombocytopenia: Status: Acute Assessment and Plan: 69-year-old female with past medical history of COPD as well as CHF who presented to the hospital with acute hypoxic respiratory failure. Patient was also recently diagnosed with COVID-19 on 04/24 Acute on chronic hypoxic respiratory failure secondary to COVID-19 pneumonia , CHF and ESRD with fluid overload Tested positive COVID-19 on 04/24, patient hypoxemia improving continue to wean oxygen, on 4 L today Completed decadron Started incentive spirometry Plan for home discharge with home oxygen Staph aureus bacteremia - mssa dialysis cath removed, repeat blood cx negative 05/09, now permacath replaced 05/22/2020 changed to ancef 2gm post hd Can be discharged with Ancef delivered at dialysis day of antibiotics, end jun 19, 2020 Thrombocytopenia Continue to be running low around 30 No bleeding noticed, continue to monitor closely Hematology input appreciated ESRD on dialysis HD Hypoglycemia event, uncontrolled DM ISS Acute inpatient delirium resolved, decreased Seroquel to once daily Diastolic CHF exacerbation volume status improved, continue dialysis COPD exacerbation resolved, completed steroid course,inhalers CAD continue Metoprolol, Plavix on hold for procedure dispo - family wants patient home, will need to wean o2 down first and try to get her home oxygen
[2020-05-27 17:10] LABS: Glucose, Whole Blood 110 mg/dL (60-115)
[2020-05-27 20:41] LABS: Glucose, Whole Blood 110 mg/dL (60-115)
[2020-05-27] MEDS: Atorvastatin Calcium 40 MG TABLET PO (21:19)
[2020-05-28] VITALS (9 sets, daily range): BP systolic 98–126; BP diastolic 50–60; PULSE 88–100; RESP 18–20; TEMP 36.5–36.9; O2SAT 91–96; BMI 33.5
[2020-05-28 07:17] LABS: Hemoglobin 7.6 g/dl (12.0-16.0)
[2020-05-28 07:18] LABS: Hematocrit 23.2 % (37-47); Mean Corpuscular HGB Conc 32.8 g/dl (31.0-35.0); Mean Corpuscular Hemoglobin 32.2 pg (27.0-33.0); Mean Corpuscular Volume 98.3 fL (80-98); Red Blood Count 2.36 X10*6/uL (4.20-5.50); Red Cell Distribution Width 16.8 % (11.0-16.0); White Blood Count 5.4 X10*3/uL (4.8-10.8)
[2020-05-28 07:27] LABS: PLT ABN DIST 1; Platelet Count 28 X10*3/uL (160-400)
[2020-05-28 07:55] LABS: Anion Gap 14 (12-20); Blood Urea Nitrogen 28 mg/dL (9-16); Calcium 7.2 mg/dL (8.4-10.2); Carbon Dioxide 30 mmol/L (22-29); Chloride 100 mmol/L (96-108); Creatinine Clr Calc Pharmacy 13.3; Estimated Glomerular Filt Rate 11; Glucose Random 107 mg/dL (60-115); Potassium 4.9 mmol/l (3.3-5.1); Sodium 139 mmol/L (135-145)
[2020-05-28 08:19] LABS: Glucose, Whole Blood 117 mg/dL (60-115)
[2020-05-28] MEDS: FLUoxetine HCl Oral Solution 20 MG/5 ML SOLUTION PO (09:58)
[2020-05-28] MEDS: Cholecalciferol (Vitamin D3) 25 MCG TABLET 50 MCG PO (09:58)
[2020-05-28] MEDS: Metoprolol Tartrate 25 MG TABLET PO ×2 (09:59→20:16)
[2020-05-28] MEDS: Isosorbide Mononitrate 60 MG TAB.ER.24H PO (09:59)
[2020-05-28] MEDS: 0.9 % Sodium Chloride Flush 3 ML SYRINGE IVFLUSH ×2 (10:00→20:17)
[2020-05-28] MEDS: Nystatin Cream 15 GM TUBE 1 APPL TOPICAL ×2 (10:02→20:17)
[2020-05-28] MEDS: Nystatin Powder 15 GM BOTTLE 1 APPL TOPICAL ×2 (10:02→20:17)
[2020-05-28 11:42] LABS: Glucose, Whole Blood 122 mg/dL (60-115)
--- NOTE | 2020-05-28 14:34 | PM.PNNEP ---
Subjective Subjective Date of Service: 05/28/20 Interval history: seen and examined. events noted currently on hd Physical Exam Vital Signs: Vital Signs: Last Vital Signs Temp 97.8 F 05/28/20 13:20 Pulse 88 05/28/20 13:20 Resp 18 05/28/20 13:20 BP 98/52 L 05/28/20 13:20 Pulse Ox 96 05/28/20 13:20 Body Mass Index 33.5 Const: Other: General - no acute distress, appears comfortable Cardiovascular - regular rate and rhythm, S1-S2 Lungs - no respiratory distress, diminished breath sound at bases Abdomen - soft, nontender, no rebound or guarding Extremities - no edema bilaterally Neuro - awake and alert, no focal deficits skin with multiple bruises General: cooperative, comfortable, no acute distress and ill appearing Orientation/consciousness: oriented to person, oriented to place and patient oriented x3 HENMT: Head: Yes normal to inspection, Yes normocephalic and Yes atraumatic Eyes: General: appearance normal, both eyes and all related structures Neck: Other: [facility]J HD cath + Neck: Yes supple Resp: Other: Tachypneic, coughing while were in the room Effort & Inspection: normal respiratory effort Auscultation: rhonchi and diminished lung sounds Cardio: Other: General - no acute distress, appears comfortable Cardiovascular - regular rate and rhythm, S1-S2 Lungs - no respiratory distress, diminished breath sound at bases Abdomen - soft, nontender, no rebound or guarding Extremities - no edema bilaterally Neuro - awake and alert, no focal deficits skin with multiple bruises Rate: regular rate Rhythm: regular rhythm Heart sounds: S1 normal heart sound present, S2 normal heart sound present and no rubs GI: Inspection: Yes normal to inspection Palpation (GI): Soft to palpation and nontender Auscultation: normal bowel sounds Skin: General skin exam: no rashes or lesions noted Neuro: General: oriented to person, oriented to place, patient oriented x3 and moves all extremities Cognition (Neuro): normal cognition Motor exam (neuro): No Asterixis during motor activity present Extrem: General: Yes normal to inspection, Yes no pedal edema and Yes edema Right upper extremity: no edema Left upper extremity: no edema Objective Data Labs CBC & Chem 7: 05/28/20 06:24 05/28/20 06:24 Labs: Laboratory Results - last 24 hr 05/27/20 05/27/20 05/28/20 17:06 20:37 06:24 WBC 5.4 RBC 2.36 L Hgb 7.6 L Hct 23.2 L MCV 98.3 H MCH 32.2 MCHC 32.8 RDW 16.8 H Plt Count 28 L MPV Not Reportable Absolute Nucleated RBC 0.000 Nucleated RBC % (auto) 0.0 Sodium Potassium Chloride Carbon Dioxide Anion Gap BUN Creatinine Estim Creat Clear Calc Estimated GFR POC Glucose 110 110 Random Glucose Calcium 05/28/20 05/28/20 05/28/20 06:24 08:15 11:38 WBC RBC Hgb Hct MCV MCH MCHC RDW Plt Count MPV Absolute Nucleated RBC Nucleated RBC % (auto) Sodium 139 Potassium 4.9 D Chloride 100 Carbon Dioxide 30 H Anion Gap 14 BUN 28 H Creatinine 3.91 H Estim Creat Clear Calc 13.3 Estimated GFR 11 POC Glucose 117 H 122 H Random Glucose 107 D Calcium 7.2 L Microbiology Microbiology Results: Microbiology 05/09/20 10:20 Blood - Venous Blood Culture - Final No growth after 5 days. 05/09/20 10:20 Blood - Venous Blood Culture - Final No growth after 5 days. 05/07/20 04:01 Blood - Venous Blood Culture - Final Staphylococcus aureus 05/07/20 04:01 Blood - Venous Blood Culture - Final No growth after 5 days. 05/05/20 05:25 Blood - Venous Blood Culture - Final Staphylococcus aureus 05/05/20 05:25 Blood - Venous Blood Culture - Final Staphylococcus aureus 05/04/20 13:40 Blood - Venous Blood Culture - Final Staphylococcus aureus 05/04/20 13:36 Blood - Venous Blood Culture - Final Staphylococcus aureus Assessment & Plan Assessment and plan (1) Bacteremia: Status: Acute (2) ESRD (end stage renal disease): Status: Acute (3) COVID-19: Status: Acute (4) Anemia: Problem details: Marked anemia: consider transfusion as well as the procrit Status: Acute Assessment and Plan: esrd; hd tts anemia mssa bactermia from line infection; s/p removal and new pcath placed after bacteremia reoslved ( h/o covid rec; d/c planning; cont hd3x/wk; procritas ordered; abx s per id Time Spent With Patient Time: Total time spent is greater than 50% in coordination of care (as documented) at patient's floor/unit and/or counseling patient:
[2020-05-28 17:21] LABS: Glucose, Whole Blood 115 mg/dL (60-115)
--- NOTE | 2020-05-28 17:25 | P.PNIM_ITS ---
Subjective Subjective Date of Service: 05/28/20 Interval History: The patient was seen and evaluated this morning Laying in bed, looks alert and interactive still requiring 6L of oxygen Denies any fever, chills or shortness of breath No reported other overnight events. Systemic review: No fever, chills but reports feeling weakness No chest pain, palpitation No shortness of breath or coughing No abdominal pain, nausea or vomiting No urinary symptoms No any rash or wounds Physical Exam Vital Signs: Vital Signs: Last Vital Signs Temp 97.8 F 05/28/20 13:20 Pulse 88 05/28/20 13:20 Resp 18 05/28/20 13:20 BP 98/52 L 05/28/20 13:20 Pulse Ox 96 05/28/20 13:20 Body Mass Index 33.5 Constitutional : Alert, oriented, not in distress Neck : Normal inspection, Supple Cardiovascular : RRR, S1 S2, no lower extremity edema Respiratory : Chest moving bilaterally, on nasal cannula, not in distress Gastrointestinal: soft, lax, Normal bowel sounds, Non tender Skin : Warm/Dry, No rash Neurological : Alert & oriented x3, left-sided weakness chronic Objective Data Current Medications Generic Name Dose Route Start Last Admin Trade Name Freq PRN Reason Stop Dose Admin Atorvastatin Calcium 40 mg 05/05/20 21:00 05/27/20 21:19 Atorvastatin Calcium 40 Mg Tablet PO 40 mg BEDTIME OPAL Administration Docusate Sodium 100 mg 05/05/20 01:14 Docusate Sodium 100 Mg Capsule PO DAILY PRN Constipation Fluoxetine HCl 20 mg 05/05/20 09:00 05/28/20 09:58 Fluoxetine Hcl Oral Solution 20 Mg/5 Ml Solution PO 20 mg DAILY OPAL Administration Insulin Human Lispro 0 unit 05/05/20 11:30 05/28/20 12:20 Insulin Lispro 100 Unit/Ml 3 Ml Vial SUBCUT Not Given QIDACHS [facility] Protocol Isosorbide Mononitrate 60 mg 05/05/20 09:00 05/28/20 09:59 Isosorbide Mononitrate 60 Mg Tab.Er.24h PO 60 mg DAILY OPAL Administration Protocol Loperamide HCl 2 mg 05/15/20 13:44 05/15/20 16:53 Loperamide Hcl 2 Mg Capsule PO 2 mg Q6H PRN Administration Diarrhea Metoprolol Tartrate 25 mg 05/05/20 09:00 05/28/20 09:59 Metoprolol Tartrate 25 Mg Tablet PO 25 mg BID OPAL Administration Protocol Nystatin 1 appl 05/16/20 11:15 05/28/20 10:02 Nystatin Powder 15 Gm Bottle TOPICAL 1 appl BID OPAL Administration Protocol Nystatin 1 appl 05/19/20 21:00 05/28/20 10:02 Nystatin Cream 15 Gm Tube TOPICAL 1 appl BID [facility] Administration Protocol Ondansetron HCl 4 mg 05/05/20 01:14 05/27/20 01:45 Ondansetron Hcl 4 Mg/2 Ml Vial IVPUSH 4 mg Q8H PRN Administration Nausea and Vomiting Quetiapine Fumarate 25 mg 05/27/20 14:37 Quetiapine Fumarate 25 Mg Tablet PO BEDTIME PRN anxiety/restlessness Sodium Chloride 3 ml 05/05/20 01:14 05/28/20 10:00 0.9 % Sodium Chloride Flush 3 Ml Syringe IVFLUSH 3 ml QSHIFT [facility] Administration Vitamin D 50 mcg 05/05/20 09:00 05/28/20 09:58 Cholecalciferol (Vitamin D3) 25 Mcg Tablet PO 50 mcg DAILY [facility] Administration Labs CBC & Chem 7: 05/28/20 06:24 05/28/20 06:24 Microbiology Microbiology Results: Microbiology 05/09/20 10:20 Blood - Venous Blood Culture - Final No growth after 5 days. 05/09/20 10:20 Blood - Venous Blood Culture - Final No growth after 5 days. 05/07/20 04:01 Blood - Venous Blood Culture - Final Staphylococcus aureus 05/07/20 04:01 Blood - Venous Blood Culture - Final No growth after 5 days. 05/05/20 05:25 Blood - Venous Blood Culture - Final Staphylococcus aureus 05/05/20 05:25 Blood - Venous Blood Culture - Final Staphylococcus aureus 05/04/20 13:40 Blood - Venous Blood Culture - Final Staphylococcus aureus 05/04/20 13:36 Blood - Venous Blood Culture - Final Staphylococcus aureus Assessment and Plan (1) Bacteremia due to Staphylococcus: Status: Acute (2) Respiratory failure with hypoxia: Status: Acute (3) Acute exacerbation of CHF (congestive heart failure): Status: Acute (4) COVID-19: Status: Acute (5) ESRD (end stage renal disease): Status: Acute (6) Thrombocytopenia: Status: Acute Assessment and Plan: 69-year-old female with past medical history of COPD as well as CHF who pr esented to the hospital with acute hypoxic respiratory failure. Patient was also recently diagnosed with COVID-19 on 04/24 Acute on chronic hypoxic respiratory failure secondary to COVID-19 pneumonia , CHF and ESRD with fluid overload Tested positive COVID-19 on 04/24, patient hypoxemia improving continue to wean oxygen, on 6 L today Completed decadron Continue incentive spirometry Plan for home discharge with home oxygen Staph aureus bacteremia - mssa dialysis cath removed, repeat blood cx negative 05/09, now permacath replaced 05/22/2020 changed to ancef 2gm post hd Can be discharged with Ancef delivered at dialysis day of antibiotics, end jun 19, 2020 Thrombocytopenia Continue to be running low around 30 No bleeding noticed, continue to monitor closely Hematology input appreciated ESRD on dialysis HD Hypoglycemia event, uncontrolled DM ISS Acute inpatient delirium resolved, decreased Seroquel to once daily Diastolic CHF exacerbation volume status improved, continue dialysis COPD exacerbation resolved, completed steroid course,inhalers CAD continue Metoprolol, Plavix on hold for procedure dispo - family wants patient home, will need to wean o2 down first and try to get her home oxygen
[2020-05-28] MEDS: ceFAZolin Sodium/Dextrose,Iso 2 GM/50 ML PIGGYBACK IV (18:23)
[2020-05-28] MEDS: Atorvastatin Calcium 40 MG TABLET PO (20:16)
[2020-05-28] MEDS: Insulin Lispro 100 UNIT/ML 3 ML VIAL SUBCUT (20:17)
[2020-05-28 20:26] LABS: Glucose, Whole Blood 190 mg/dL (60-115)
[2020-05-29] VITALS (11 sets, daily range): BP systolic 112–135; BP diastolic 55–76; PULSE 83–93; RESP 18–20; TEMP 36.3–36.9; O2SAT 92–97
[2020-05-29] MEDS: ondansetron HCL 4 MG/2 ML VIAL IVPUSH (03:28)
[2020-05-29 07:15] LABS: Hematocrit 22.1 % (37-47); Mean Corpuscular HGB Conc 31.7 g/dl (31.0-35.0); Mean Corpuscular Hemoglobin 31.8 pg (27.0-33.0); Mean Corpuscular Volume 100.5 fL (80-98); Red Cell Distribution Width 16.7 % (11.0-16.0); White Blood Count 5.8 X10*3/uL (4.8-10.8)
[2020-05-29 07:47] LABS: Platelet Count 35 X10*3/uL (160-400)
[2020-05-29 08:17] LABS: Glucose, Whole Blood 139 mg/dL (60-115)
[2020-05-29] MEDS: Metoprolol Tartrate 25 MG TABLET PO ×2 (09:46→21:27)
[2020-05-29] MEDS: FLUoxetine HCl Oral Solution 20 MG/5 ML SOLUTION PO (09:46)
[2020-05-29] MEDS: Isosorbide Mononitrate 60 MG TAB.ER.24H PO (09:50)
[2020-05-29] MEDS: 0.9 % Sodium Chloride Flush 3 ML SYRINGE IVFLUSH ×2 (09:50→17:33)
[2020-05-29] MEDS: Cholecalciferol (Vitamin D3) 25 MCG TABLET 50 MCG PO (09:50)
[2020-05-29] MEDS: Nystatin Powder 15 GM BOTTLE 1 APPL TOPICAL ×2 (09:50→21:30)
[2020-05-29] MEDS: Nystatin Cream 15 GM TUBE 1 APPL TOPICAL ×2 (09:51→21:27)
[2020-05-29 11:42] LABS: Glucose, Whole Blood 167 mg/dL (60-115)
[2020-05-29] MEDS: Insulin Lispro 100 UNIT/ML 3 ML VIAL SUBCUT (11:44)
--- NOTE | 2020-05-29 12:25 | MHC.CLN ---
F/U PO INTAKE 75-100% IMPROVING SLOWLY DIET RX: 1800DM 2GM NA-APPROPRIATE PT RECEIVING BREANNA AND ENSURE CLEAR TID TO SUPPORT WOUND HEALING CONTINUE TO MONITOR PO INTAKE FOLLOWING
--- NOTE | 2020-05-29 13:02 | MHC.CM.PN ---
Patient is on 6 liters of O2, weaning. Will receive IV Cefazolin x 6 wks at dialysis. Patient will need home O2 eval prior to discharge. Discharge plan is home with resumption of [employer] [employer] services. Patient will need BLS transport. CM will continue to follow patient for discharge needs.
--- NOTE | 2020-05-29 14:42 | P.PNIM_ITS ---
Subjective Subjective Date of Service: 05/29/20 Interval History: The patient was seen and evaluated this morning Laying in bed, looks alert and interactive still requiring 6L of oxygen Hb dropped to 7 Denies any fever, chills or shortness of breath No reported other overnight events. Systemic review: No fever, chills but reports feeling weakness No chest pain, palpitation No shortness of breath or coughing No abdominal pain, nausea or vomiting No urinary symptoms No any rash or wounds Physical Exam Vital Signs: Vital Signs: Last Vital Signs Temp 97.4 F 05/29/20 12:46 Pulse 83 05/29/20 12:46 Resp 18 05/29/20 12:46 BP 112/55 L 05/29/20 12:46 Pulse Ox 92 05/29/20 11:18 Body Mass Index 33.5 Constitutional : Alert, oriented, not in distress Neck : Normal inspection, Supple Cardiovascular : RRR, S1 S2, no lower extremity edema Respiratory : Chest moving bilaterally, on nasal cannula, not in distress Gastrointestinal: soft, lax, Normal bowel sounds, Non tender Skin : Warm/Dry, No rash Neurological : Alert & oriented x3, left-sided weakness chronic Objective Data Current Medications Generic Name Dose Route Start Last Admin Trade Name Freq PRN Reason Stop Dose Admin Atorvastatin Calcium 40 mg 05/05/20 21:00 05/28/20 20:16 Atorvastatin Calcium 40 Mg Tablet PO 40 mg BEDTIME OPAL Administration Docusate Sodium 100 mg 05/05/20 01:14 Docusate Sodium 100 Mg Capsule PO DAILY PRN Constipation Fluoxetine HCl 20 mg 05/05/20 09:00 05/29/20 09:46 Fluoxetine Hcl Oral Solution 20 Mg/5 Ml Solution PO 20 mg DAILY OPAL Administration Cefazolin Sodium/Dextrose 2 gm in 50 mls @ 100 mls/hr 05/28/20 18:00 05/28/20 19:24 Ancef IV Infused [id number] OPAL Infusion Insulin Human Lispro 0 unit 05/05/20 11:30 05/29/20 11:44 Insulin Lispro 100 Unit/Ml 3 Ml Vial SUBCUT 2 unit QIDACHS [facility] Administration Protocol Isosorbide Mononitrate 60 mg 05/05/20 09:00 05/29/20 09:50 Isosorbide Mononitrate 60 Mg Tab.Er.24h PO 60 mg DAILY [facility] Administration Protocol Loperamide HCl 2 mg 05/15/20 13:44 05/15/20 16:53 Loperamide Hcl 2 Mg Capsule PO 2 mg Q6H PRN Administration Diarrhea Metoprolol Tartrate 25 mg 05/05/20 09:00 05/29/20 09:46 Metoprolol Tartrate 25 Mg Tablet PO 25 mg BID OPAL Administration Protocol Nystatin 1 appl 05/16/20 11:15 05/29/20 09:50 Nystatin Powder 15 Gm Bottle TOPICAL 1 appl BID OPAL Administration Protocol Nystatin 1 appl 05/19/20 21:00 05/29/20 09:51 Nystatin Cream 15 Gm Tube TOPICAL 1 appl BID [facility] Administration Protocol Ondansetron HCl 4 mg 05/05/20 01:14 05/29/20 03:28 Ondansetron Hcl 4 Mg/2 Ml Vial IVPUSH 4 mg Q8H PRN Administration Nausea and Vomiting Quetiapine Fumarate 25 mg 05/27/20 14:37 Quetiapine Fumarate 25 Mg Tablet PO BEDTIME PRN anxiety/restlessness Sodium Chloride 3 ml 05/05/20 01:14 05/29/20 09:50 0.9 % Sodium Chloride Flush 3 Ml Syringe IVFLUSH 3 ml QSHIFT [facility] Administration Vitamin D 50 mcg 05/05/20 09:00 05/29/20 09:50 Cholecalciferol (Vitamin D3) 25 Mcg Tablet PO 50 mcg DAILY [facility] Administration Labs CBC & Chem 7: 05/29/20 05:43 05/28/20 06:24 Microbiology Microbiology Results: Microbiology 05/09/20 10:20 Blood - Venous Blood Culture - Final No growth after 5 days. 05/09/20 10:20 Blood - Venous Blood Culture - Final No growth after 5 days. 05/07/20 04:01 Blood - Venous Blood Culture - Final Staphylococcus aureus 05/07/20 04:01 Blood - Venous Blood Culture - Final No growth after 5 days. 05/05/20 05:25 Blood - Venous Blood Culture - Final Staphylococcus aureus 05/05/20 05:25 Blood - Venous Blood Culture - Final Staphylococcus aureus 05/04/20 13:40 Blood - Venous Blood Culture - Final Staphylococcus aureus 05/04/20 13:36 Blood - Venous Blood Culture - Final Staphylococcus aureus Assessment and Plan (1) Bacteremia due to Staphylococcus: Status: Acute (2) Respiratory failure with hypoxia: Status: Acute (3) Acute exacerbation of CHF (congestive heart failure): Status: Acute (4) COVID-19: Status: Acute (5) ESRD (end stage renal disease): Status: Acute (6) Thrombocytopenia: Status: Acute Assessment and Plan: 69-year-old female with past medical history of COPD as well as CHF who presented to the hospital with acute hypoxic respiratory failure. Patient was also recently diagnosed with COVID-19 on 04/24 Acute on chronic hypoxic respiratory failure secondary to COVID-19 pneumonia , CHF and ESRD Tested positive COVID-19 on 04/24, patient hypoxemia improving continue to wean oxygen, on 4-6 L today Completed decadron Continue incentive spirometry Plan for home discharge with home oxygen tomorrow if maintain O2 supplement <5 Staph aureus bacteremia - [facility]ss[facility] dialysis cath removed, repeat blood cx negative 05/09, now permacath replaced 05/22/2020 changed to ancef 2gm post hd Can be discharged with Ancef delivered at dialysis day of antibiotics, end jun 19, 2020 Thrombocytopenia Continue to be running low around 30 No bleeding noticed, continue to monitor closely Hematology input appreciated ESRD on dialysis HD Hypoglycemia event, uncontrolled DM ISS Acute inpatient delirium resolved, decreased Seroquel to once daily Diastolic CHF exacerbation volume status improved, continue dialysis COPD exacerbation resolved, completed steroid course,inhalers CAD continue Metoprolol, Plavix on hold for procedure dispo - family wants patient home, will need to wean o2 down first and try to get her home oxygen
--- NOTE | 2020-05-29 15:30 | PC.NURSE ---
Addendum entered by Madina Partida RN 05/29/20 15:32: note blood transfusion ended at 14:16 Original Note: unable to doc ended RBC due to other transfusion flagging as transfusing - pt recieved 1unit of RBCs - no s/s of any reaction - post blood transfusion vitals : T 98.5 HR 79 99% on 4L BP 127/60
[2020-05-29 16:27] LABS: Glucose, Whole Blood 88 mg/dL (60-115)
[2020-05-29 20:25] LABS: Glucose, Whole Blood 138 mg/dL (60-115)
[2020-05-29] MEDS: Atorvastatin Calcium 40 MG TABLET PO (21:27)
[2020-05-30] VITALS: PULSE 83; RESP 20; TEMP 36.6; O2SAT 97
[2020-05-30] MEDS: 0.9 % Sodium Chloride Flush 3 ML SYRINGE IVFLUSH ×2 (01:07→08:38)
[2020-05-30 04:00] VITALS: BP 125/59; PULSE 92; RESP 18; TEMP 36.7
[2020-05-30 05:54] VITALS: PULSE 91; RESP 21; O2SAT 95
[2020-05-30 06:00] VITALS: BMI 33.8
[2020-05-30 06:20] LABS: Hematocrit 27.1 % (37-47); Hemoglobin 8.5 g/dl (12.0-16.0); Mean Corpuscular HGB Conc 31.4 g/dl (31.0-35.0); Mean Corpuscular Hemoglobin 30.7 pg (27.0-33.0); Mean Corpuscular Volume 97.8 fL (80-98); Red Blood Count 2.77 X10*6/uL (4.20-5.50); Red Cell Distribution Width 16.9 % (11.0-16.0); White Blood Count 5.5 X10*3/uL (4.8-10.8)
--- NOTE | 2020-05-30 06:30 | PC.NURSE ---
Alert and oriented to person, place and situation, primarily [place] speaking only. Lung sounds diminished with crackles in the lower lobes, oxygen at 4 LPM via nasal cannula with sats in the mid to high 90s, decreased rate at 0445 to 3 LPM and she was sustaining at 93-94% with no shortness of breath. Permacath noted in the left chest, right chest old Permacath site still bruised. Buttocks with fungal rashes and few small open areas with maceration. Barrier cream and Nystatin cream applied. She was able to sleep most part of the night with complaints. Will continue plan of care.
[2020-05-30 06:37] LABS: Anion Gap 11 (12-20); Blood Urea Nitrogen 32 mg/dL (9-16); Calcium 7.7 mg/dL (8.4-10.2); Carbon Dioxide 31 mmol/L (22-29); Chloride 101 mmol/L (96-108); Creatinine Clr Calc Pharmacy 15.2; Estimated Glomerular Filt Rate 13; Glucose Random 117 mg/dL (60-115); Potassium 4.2 mmol/l (3.3-5.1); Sodium 139 mmol/L (135-145)
[2020-05-30 06:42] LABS: PLT ABN DIST 1; Platelet Count 37 X10*3/uL (160-400)
[2020-05-30 08:00] VITALS: BP 133/68; PULSE 87; RESP 18; TEMP 36.8; O2SAT 95
[2020-05-30 08:05] LABS: Glucose, Whole Blood 98 mg/dL (60-115)
[2020-05-30] MEDS: FLUoxetine HCl Oral Solution 20 MG/5 ML SOLUTION PO (08:40)
[2020-05-30] MEDS: Cholecalciferol (Vitamin D3) 25 MCG TABLET 50 MCG PO (08:40)
[2020-05-30] MEDS: Nystatin Cream 15 GM TUBE 1 APPL TOPICAL (08:41)
[2020-05-30 08:44] VITALS: BP 133/68; PULSE 87
[2020-05-30] MEDS: Isosorbide Mononitrate 60 MG TAB.ER.24H PO (08:44)
[2020-05-30] MEDS: Metoprolol Tartrate 25 MG TABLET PO (08:44)
[2020-05-30] MEDS: Nystatin Powder 15 GM BOTTLE 1 APPL TOPICAL (08:45)
[2020-05-30 12:00] VITALS: BP 105/48; PULSE 77; RESP 20; TEMP 36.5; O2SAT 95
[2020-05-30 12:39] LABS: Glucose, Whole Blood 95 mg/dL (60-115)
--- NOTE | 2020-05-30 12:48 | MHC.CM.PN ---
Patient has been medically cleared for dc to home, no further services needed. Patient will dc to home today at 2 PM, via [facility]. Last IMM addressed yesterday.
--- NOTE | 2020-05-30 12:52 | PM.DS ---
DS: Providers Provider Date of Service: 05/30/20 Date of admission: 05/04/20 23:53 Primary care physician: Unknown Physician Consults: 05/05/20 01:14 Consult to Nephrology Routine Consulting Provider: [facility] Reason for consultation: dialysis Has provider been notified: No 05/06/20 08:04 Consult to Infectious Diseases Routine Consulting Provider: Ana Aguila Reason for consultation: Gram positive cocci bacteremia 05/20/20 08:49 Consult to Hematology / Oncology Routine Consulting Provider: Suzanne Jaimes Reason for consultation: thrombocytopenia DS: Diagnosis Discharge Diagnosis (1) Bacteremia due to Staphylococcus: Status: Acute (2) Respiratory failure with hypoxia: Status: Acute (3) Acute exacerbation of CHF (congestive heart failure): Status: Acute (4) COVID-19: Status: Acute (5) ESRD (end stage renal disease): Status: Acute (6) Thrombocytopenia: Status: Acute (7) Pneumonia due to COVID-19 virus: Status: Acute (8) Anemia: Status: Acute Problem details: Marked anemia: consider transfusion as well as the procrit DS: Medications Discharge Medications Home Medications: Home Medications Medication Instructions Recorded Confirmed atorvastatin 40 mg PO BEDTIME 04/24/20 05/04/20 bumetanide 4 mg PO SUTUTHSA@0800,1700 04/24/20 05/04/20 cholecalciferol (vitamin D3) 50 mcg PO QAM 04/24/20 05/04/20 clopidogrel 75 mg PO BEDTIME 04/24/20 05/04/20 fluoxetine 5 ml PO DAILY 04/24/20 05/04/20 isosorbide mononitrate 60 mg PO QAM 04/24/20 05/04/20 metoprolol tartrate 25 mg PO BID 04/24/20 05/04/20 Anoro Ellipta 1 puff INHALATION DAILY 05/04/20 05/04/20 lorazepam 0.5 mg PO DAILY PRN 05/04/20 05/04/20 quetiapine 25 mg PO BEDTIME PRN 05/04/20 05/04/20 DS: Summary Hospital Course Hospital Course: Admission note HPI Patient is [place]ijani-speaking and history is obtained with the help of an chain pegger This is a 69-year-old female with past medical history of CHF, diabetes, COPD, ESRD on dialysis who presents to the hospital with shortness of breath. Patient appears to be confused, she is oriented to self and place but is not really answering questions appropriately. She says yes to every question asked by the chain pegger myself. Therefore history is obtained mostly from chart as well as ED note. It appears the patient was seen on 04/24 for dizziness and hypertension and at that time she tested positive for COVID. Reportedly has become more short of breath since then and family increase her baseline O2 oxygen from 2 L to 5 L. On arrival of EMS patient was found to be satting in the mid 80s. Pe put her on non-rebreather with improvement of her O2 to the 90s. She missed her dialysis today and had 1 episode of vomiting. Unable to obtain any accurate review of system otherwise is patient answers yes to all my questions To the ED hemodynamically stable without respiratory rate of 36, currently satting between 86-90% on 6 L of oxygen Lab significant for normal WBC count, hemoglobin of 10.5 which is improved from recent admission, platelet count of 91, BNP significant for creatinine of 5.14, glucose of 1000, COVID-19 positive on 04/24 Chest x-ray shows low lung volumes, mild vascular congestion with some early airspace opacity right upper lobe and left infrahilar region with no overt effusion Hospital course The patient has prolonged hospital stay, for full details please returned to EMR. In summary, a 69-year-old female with past medical history of COPD as well as CHF who presented to the hospital with acute hypoxic respiratory failure. Patient was diagnosed with COVID-19 on 04/24 prior to admission. A Acute on chronic hypoxic respiratory failure secondary to COVID-19 pneumonia , CHF and ESRD Tested positive COVID-19 on 04/24, treated with IV steroids. Was not a candidate for remdesivir per her kidney function. Evaluated by infectious disease during the course of treatment. She required high oxygen supplement for long period of time including high-flow, non-rebreather. She did not require any invasive breathing. Wean down to 3 L of oxygen at the day of discharge. To continue use incentive spirometry after discharge Staph aureus bacteremia - mssa Source was the dialysis cath which was removed. Repeated blood cx negative 05/09, a new permacath replaced 05/22/2020 day of 2 g Ancef post HD, end jun 19, 2020 Ancef delivered at dialysis center after discharge. Nephrology aware and planning it. Thrombocytopenia Noted to have significantly lower platelet count. Evaluated by Hematology during the hospital stay Dr. Jaimes with recommendation to hold Plavix for risk of bleeding as the patient required transfusion during her hospital stay. Platelets remained to be running on the lower end around 30s. No measure bleeding noted but gradual drop of her hemoglobin level. To repeat CBC after discharge, continue to hold Plavix until platelets above 50,000. ESRD on dialysis To continue dialysis as outpatient. To resume Bumex at home. To be reviewed by Nephrology. Acute inpatient delirium Developed during the hospital stay. Improved with using Seroquel which was decreased back to once at bedtime. Rest of problems can be reviewed in EMR. Time Spent with Patient Time attestation: Total time spent providing and/or coordinating discharge services: Discharge coordination time: Greater than 30 minutes Physical Exam Vital Signs: Vital Signs: Last Vital Signs Temp 97.7 F 05/30/20 12:00 Pulse 77 05/30/20 12:00 Resp 20 05/30/20 12:00 BP 105/48 L 05/30/20 12:00 Pulse Ox 95 05/30/20 12:00 Body Mass Index 33.8 Constitutional : Alert, oriented, not in distress Neck : Normal inspection, Supple Cardiovascular : RRR, S1 S2, no lower extremity edema Respiratory : Fair bilateral air entry, decreased air entry at the bases of the lung, no crackles, wheezes or rhonchi Gastrointestinal: soft, lax, Normal bowel sounds, Non tender Skin : Warm/Dry, No rash Neurological : Alert & oriented , left hemiparesis, no other focal findings DS: Data Data Completed and Pending Labs on day of discharge: Laboratory Tests 05/04/20 05/04/20 05/04/20 13:36 13:36 13:36 WBC RBC Hgb Hct MCV MCH MCHC RDW Plt Count MPV Immature Gran % (Auto) Neut % (Auto) Lymph % (Auto) [place] % (Auto) Eos % (Auto) Baso % (Auto) Lymph # (Auto) [place] # (Auto) Eos # (Auto) Baso # (Auto) Abs Immat Gran (auto) Absolute Neuts (auto) Absolute Nucleated RBC Nucleated RBC % (auto) Neutrophils % (Manual) Band Neutrophils % Lymphocytes % (Manual) Monocytes % (Manual) Abs Neuts (Manual) Lymphocytes # (Manual) Monocytes # (Manual) Nucleated RBCs Platelet Estimate Plt Morphology Comment RBC Morphology Polychromasia Microcytosis Macrocytosis Spherocytes Tear Drop Cells Ovalocytes Sury Cells Acanthocytes (Spur) Schistocytes Smear Tech's Comments Smear Path Review PT INR APTT Sodium Potassium Chloride Carbon Dioxide Anion Gap BUN Creatinine Estim Creat Clear Calc Estimated GFR POC Glucose Random Glucose Fasting Glucose Lactic Acid Cancelled Calcium Magnesium Cancelled Iron TIBC % Saturation Unsat Iron Binding Ferritin Cancelled Total Bilirubin Cancelled Direct Bilirubin Cancelled AST Cancelled ALT Cancelled Alkaline Phosphatase Cancelled Lactate Dehydrogenase Cancelled Troponin I High Sens 49.0 H B-Natriuretic Peptide Total Protein Cancelled Albumin Cancelled Lipase Cancelled Vitamin B12 Folate Vancomycin Trough Random Vancomycin C. difficile Toxin A&B C. difficile Antigen C. difficile Interpret Ur L.pneumophila Ag Ur Strep pneumoniae Ag Blood Type Antibody Screen Crossmatch 05/04/20 05/04/20 05/04/20 13:37 13:37 13:37 WBC 5.1 RBC 3.35 L D Hgb 10.5 L D Hct 33.7 L D MCV 100.6 H MCH 31.3 MCHC 31.2 RDW 14.7 Plt Count 91 L D MPV 13.2 H Immature Gran % (Auto) Cancelled Neut % (Auto) Cancelled Lymph % (Auto) Cancelled [place] % (Auto) Cancelled Eos % (Auto) Cancelled Baso % (Auto) Cancelled Lymph # (Auto) Cancelled [place] # (Auto) Cancelled Eos # (Auto) Cancelled Baso # (Auto) Cancelled Abs Immat Gran (auto) Cancelled Absolute Neuts (auto) Cancelled Absolute Nucleated RBC 0.000 Nucleated RBC % (auto) 0.0 Neutrophils % (Manual) 74 H Band Neutrophils % 15 H Lymphocytes % (Manual) 1 L Monocytes % (Manual) 10 Abs Neuts (Manual) 4.5 Lymphocytes # (Manual) 0.1 L Monocytes # (Manual) 0.5 Nucleated RBCs 1 H Platelet Estimate SLIGHTLY DECREASED Plt Morphology Comment NORMAL RBC Morphology NOTED Polychromasia Microcytosis 1+ Macrocytosis Spherocytes 1+ Tear Drop Cells 1+ Ovalocytes Sury Cells 1+ Acanthocytes (Spur) Schistocytes 1+ Smear Tech's Comments Smear Path Review SEE NOTE PT INR APTT Sodium Cancelled Potassium Cancelled Chloride Cancelled Carbon Dioxide Cancelled Anion Gap Cancelled BUN Cancelled Creatinine Cancelled Estim Creat Clear Calc Cancelled Estimated GFR Cancelled POC Glucose Random Glucose Cancelled Fasting Glucose Lactic Acid Calcium Cancelled Magnesium Iron TIBC % Saturation Unsat Iron Binding Ferritin Total Bilirubin Direct Bilirubin AST ALT Alkaline Phosphatase Lactate Dehydrogenase Troponin I High Sens B-Natriuretic Peptide 1054 H Total Protein Albumin Lipase Vitamin B12 Folate Vancomycin Trough Random Vancomycin C. difficile Toxin A&B C. difficile Antigen C. difficile Interpret Ur L.pneumophila Ag Ur Strep pneumoniae Ag Blood Type Antibody Screen Crossmatch 05/04/20 05/04/20 05/04/20 13:37 13:56 14:57 WBC RBC Hgb Hct MCV MCH MCHC RDW Plt Count MPV Immature Gran % (Auto) Neut % (Auto) Lymph % (Auto) [place] % (Auto) Eos % (Auto) Baso % (Auto) Lymph # (Auto) [place] # (Auto) Eos # (Auto) Baso # (Auto) Abs Immat Gran (auto) Absolute Neuts (auto) Absolute Nucleated RBC Nucleated RBC % (auto) Neutrophils % (Manual) Band Neutrophils % Lymphocytes % (Manual) Monocytes % (Manual) Abs Neuts (Manual) Lymphocytes # (Manual) Monocytes # (Manual) Nucleated RBCs Platelet Estimate Plt Morphology Comment RBC Morphology Polychromasia Microcytosis Macrocytosis Spherocytes Tear Drop Cells Ovalocytes Sury Cells Acanthocytes (Spur) Schistocytes Smear Tech's Comments Smear Path Review PT 11.0 INR 0.9 APTT 32.4 Sodium 126 L Potassium 3.8 Chloride 83 L Carbon Dioxide 30 H Anion Gap 17 BUN 75 H D Creatinine 5.14 H* Estim Creat Clear Calc 10.0 Estimated GFR 8 POC Glucose Random Glucose 1076 H* Fasting Glucose Lactic Acid 2.0 Calcium 7.5 L D Magnesium Iron TIBC % Saturation Unsat Iron Binding Ferritin 5660 H Total Bilirubin 0.5 Direct Bilirubin 0.4 AST 42 H ALT 31 Alkaline Phosphatase 539 H D Lactate Dehydrogenase 497 H Troponin I High Sens B-Natriuretic Peptide Total Protein 6.3 L Albumin 2.2 L Lipase 92 H Vitamin B12 Folate Vancomycin Trough Random Vancomycin C. difficile Toxin A&B C. difficile Antigen C. difficile Interpret Ur L.pneumophila Ag Ur Strep pneumoniae Ag Blood Type Antibody Screen Crossmatch 05/04/20 05/04/20 05/04/20 14:57 17:42 17:49 WBC RBC Hgb Hct MCV MCH MCHC RDW Plt Count MPV Immature Gran % (Auto) Neut % (Auto) Lymph % (Auto) [place] % (Auto) Eos % (Auto) Baso % (Auto) Lymph # (Auto) [place] # (Auto) Eos # (Auto) Baso # (Auto) Abs Immat Gran (auto) Absolute Neuts (auto) Absolute Nucleated RBC Nucleated RBC % (auto) Neutrophils % (Manual) Band Neutrophils % Lymphocytes % (Manual) Monocytes % (Manual) Abs Neuts (Manual) Lymphocytes # (Manual) Monocytes # (Manual) Nucleated RBCs Platelet Estimate Plt Morphology Comment RBC Morphology Polychromasia Microcytosis Macrocytosis Spherocytes Tear Drop Cells Ovalocytes Sury Cells Acanthocytes (Spur) Schistocytes Smear Tech's Comments Smear Path Review PT INR APTT Sodium Potassium Chloride Carbon Dioxide Anion Gap BUN Creatinine Estim Creat Clear Calc Estimated GFR POC Glucose > 600 H* > 600 H* Random Glucose Fasting Glucose Lactic Acid Calcium Magnesium 2.2 Iron TIBC % Saturation Unsat Iron Binding Ferritin Total Bilirubin Direct Bilirubin AST ALT Alkaline Phosphatase Lactate Dehydrogenase Troponin I High Sens B-Natriuretic Peptide Total Protein Albumin Lipase Vitamin B12 Folate Vancomycin Trough Random Vancomycin C. difficile Toxin A&B C. difficile Antigen C. difficile Interpret Ur L.pneumophila Ag Ur Strep pneumoniae Ag Blood Type Antibody Screen Crossmatch 05/04/20 05/04/20 05/04/20 18:40 19:34 20:13 WBC RBC Hgb Hct MCV MCH MCHC RDW Plt Count MPV Immature Gran % (Auto) Neut % (Auto) Lymph % (Auto) [place] % (Auto) Eos % (Auto) Baso % (Auto) Lymph # (Auto) [place] # (Auto) Eos # (Auto) Baso # (Auto) Abs Immat Gran (auto) Absolute Neuts (auto) Absolute Nucleated RBC Nucleated RBC % (auto) Neutrophils % (Manual) Band Neutrophils % Lymphocytes % (Manual) Monocytes % (Manual) Abs Neuts (Manual) Lymphocytes # (Manual) Monocytes # (Manual) Nucleated RBCs Platelet Estimate Plt Morphology Comment RBC Morphology Polychromasia Microcytosis Macrocytosis Spherocytes Tear Drop Cells Ovalocytes Mallard Cells Acanthocytes (Spur) Schistocytes Smear Tech's Comments Smear Path Review PT INR APTT Sodium Potassium Chloride Carbon Dioxide Anion Gap BUN Creatinine Estim Creat Clear Calc Estimated GFR POC Glucose > 600 H* > 600 H* > 600 H* Random Glucose Fasting Glucose Lactic Acid Calcium Magnesium Iron TIBC % Saturation Unsat Iron Binding Ferritin Total Bilirubin Direct Bilirubin AST ALT Alkaline Phosphatase Lactate Dehydrogenase Troponin I High Sens B-Natriuretic Peptide Total Protein Albumin Lipase Vitamin B12 Folate Vancomycin Trough Random Vancomycin C. difficile Toxin A&B C. difficile Antigen C. difficile Interpret Ur L.pneumophila Ag Ur Strep pneumoniae Ag Blood Type Antibody Screen Crossmatch 05/04/20 05/04/20 05/04/20 21:21 22:26 23:41 WBC RBC Hgb Hct MCV MCH MCHC RDW Plt Count MPV Immature Gran % (Auto) Neut % (Auto) Lymph % (Auto) [place] % (Auto) Eos % (Auto) Baso % (Auto) Lymph # (Auto) [place] # (Auto) Eos # (Auto) Baso # (Auto) Abs Immat Gran (auto) Absolute Neuts (auto) Absolute Nucleated RBC Nucleated RBC % (auto) Neutrophils % (Manual) Band Neutrophils % Lymphocytes % (Manual) Monocytes % (Manual) Abs Neuts (Manual) Lymphocytes # (Manual) Monocytes # (Manual) Nucleated RBCs Platelet Estimate Plt Morphology Comment RBC Morphology Polychromasia Microcytosis Macrocytosis Spherocytes Tear Drop Cells Ovalocytes Sury Cells Acanthocytes (Spur) Schistocytes Smear Tech's Comments Smear Path Review PT INR APTT Sodium Potassium Chloride Carbon Dioxide Anion Gap BUN Creatinine Estim Creat Clear Calc Estimated GFR POC Glucose 587 H* 511 H* 395 H* Random Glucose Fasting Glucose Lactic Acid Calcium Magnesium Iron TIBC % Saturation Unsat Iron Binding Ferritin Total Bilirubin Direct Bilirubin AST ALT Alkaline Phosphatase Lactate Dehydrogenase Troponin I High Sens B-Natriuretic Peptide Total Protein Albumin Lipase Vitamin B12 Folate Vancomycin Trough Random Vancomycin C. difficile Toxin A&B C. difficile Antigen C. difficile Interpret Ur L.pneumophila Ag Ur Strep pneumoniae Ag Blood Type Antibody Screen Crossmatch 05/05/20 05/05/20 05/05/20 01:37 05:25 05:25 WBC 5.1 RBC 3.38 L Hgb 10.6 L Hct 31.4 L MCV 92.9 D MCH 31.4 MCHC 33.8 RDW 13.7 Plt Count 97 L MPV 12.5 H Immature Gran % (Auto) Cancelled Neut % (Auto) Cancelled Lymph % (Auto) Cancelled [place] % (Auto) Cancelled Eos % (Auto) Cancelled Baso % (Auto) Cancelled Lymph # (Auto) Cancelled [place] # (Auto) Cancelled Eos # (Auto) Cancelled Baso # (Auto) Cancelled Abs Immat Gran (auto) Cancelled Absolute Neuts (auto) Cancelled Absolute Nucleated RBC 0.000 Nucleated RBC % (auto) 0.0 Neutrophils % (Manual) 68 Band Neutrophils % 12 H Lymphocytes % (Manual) 9 L Monocytes % (Manual) 11 Abs Neuts (Manual) 4.1 Lymphocytes # (Manual) 0.5 L Monocytes # (Manual) 0.6 Nucleated RBCs Platelet Estimate DECREASED Plt Morphology Comment NORMAL RBC Morphology NOTED Polychromasia 1+ Microcytosis Macrocytosis 1+ Spherocytes 1+ Tear Drop Cells 1+ Ovalocytes 1+ Sury Cells Acanthocytes (Spur) 1+ Schistocytes Smear Tech's Comments Smear Path Review PT INR APTT Sodium 131 L Potassium 3.7 Chloride 91 L Carbon Dioxide 28 Anion Gap 16 BUN 85 H* Creatinine 5.42 H* Estim Creat Clear Calc 9.8 Estimated GFR 8 POC Glucose 357 H* Random Glucose 386 H* Fasting Glucose Lactic Acid Calcium 7.8 L Magnesium Iron TIBC % Saturation Unsat Iron Binding Ferritin Total Bilirubin Direct Bilirubin AST ALT Alkaline Phosphatase Lactate Dehydrogenase Troponin I High Sens B-Natriuretic Peptide Total Protein Albumin Lipase Vitamin B12 Folate Vancomycin Trough Random Vancomycin C. difficile Toxin A&B C. difficile Antigen C. difficile Interpret Ur L.pneumophila Ag Ur Strep pneumoniae Ag Blood Type Antibody Screen Crossmatch 05/05/20 05/05/20 05/05/20 05:40 08:06 11:06 WBC RBC Hgb Hct MCV MCH MCHC RDW Plt Count MPV Immature Gran % (Auto) Neut % (Auto) Lymph % (Auto) [place] % (Auto) Eos % (Auto) Baso % (Auto) Lymph # (Auto) [place] # (Auto) Eos # (Auto) Baso # (Auto) Abs Immat Gran (auto) Absolute Neuts (auto) Absolute Nucleated RBC Nucleated RBC % (auto) Neutrophils % (Manual) Band Neutrophils % Lymphocytes % (Manual) Monocytes % (Manual) Abs Neuts (Manual) Lymphocytes # (Manual) Monocytes # (Manual) Nucleated RBCs Platelet Estimate Plt Morphology Comment RBC Morphology Polychromasia Microcytosis Macrocytosis Spherocytes Tear Drop Cells Ovalocytes Mallard Cells Acanthocytes (Spur) Schistocytes Smear Tech's Comments Smear Path Review PT INR APTT Sodium Potassium Chloride Carbon Dioxide Anion Gap BUN Creatinine Estim Creat Clear Calc Estimated GFR POC Glucose 368 H* 384 H* Random Glucose Fasting Glucose Lactic Acid Calcium Magnesium Iron TIBC % Saturation Unsat Iron Binding Ferritin Total Bilirubin Direct Bilirubin AST ALT Alkaline Phosphatase Lactate Dehydrogenase Troponin I High Sens B-Natriuretic Peptide Total Protein Albumin Lipase Vitamin B12 Folate Vancomycin Trough Random Vancomycin C. difficile Toxin A&B C. difficile Antigen C. difficile Interpret Ur L.pneumophila Ag Not Detected Ur Strep pneumoniae Ag Not Detected Blood Type Antibody Screen Crossmatch 05/05/20 05/05/20 05/05/20 11:49 16:22 20:17 WBC RBC Hgb Hct MCV MCH MCHC RDW Plt Count MPV Immature Gran % (Auto) Neut % (Auto) Lymph % (Auto) [place] % (Auto) Eos % (Auto) Baso % (Auto) Lymph # (Auto) [place] # (Auto) Eos # (Auto) Baso # (Auto) Abs Immat Gran (auto) Absolute Neuts (auto) Absolute Nucleated RBC Nucleated RBC % (auto) Neutrophils % (Manual) Band Neutrophils % Lymphocytes % (Manual) Monocytes % (Manual) Abs Neuts (Manual) Lymphocytes # (Manual) Monocytes # (Manual) Nucleated RBCs Platelet Estimate Plt Morphology Comment RBC Morphology Polychromasia Microcytosis Macrocytosis Spherocytes Tear Drop Cells Ovalocytes Mallard Cells Acanthocytes (Spur) Schistocytes Smear Tech's Comments Smear Path Review PT INR APTT Sodium Potassium Chloride Carbon Dioxide Anion Gap BUN Creatinine Estim Creat Clear Calc Estimated GFR POC Glucose 288 H 204 H Random Glucose Fasting Glucose Lactic Acid Calcium Magnesium Iron TIBC % Saturation Unsat Iron Binding Ferritin Total Bilirubin Direct Bilirubin AST ALT Alkaline Phosphatase Lactate Dehydrogenase Troponin I High Sens B-Natriuretic Peptide Total Protein Albumin Lipase Vitamin B12 Folate Vancomycin Trough Random Vancomycin 20.6 H C. difficile Toxin A&B C. difficile Antigen C. difficile Interpret Ur L.pneumophila Ag Ur Strep pneumoniae Ag Blood Type Antibody Screen Crossmatch 05/06/20 05/06/20 05/06/20 06:04 06:04 06:04 WBC 8.4 RBC 3.48 L Hgb 10.9 L Hct 32.3 L MCV 92.8 MCH 31.3 MCHC 33.7 RDW 13.8 Plt Count 123 L D MPV 13.3 H Immature Gran % (Auto) Neut % (Auto) Lymph % (Auto) [place] % (Auto) Eos % (Auto) Baso % (Auto) Lymph # (Auto) [place] # (Auto) Eos # (Auto) Baso # (Auto) Abs Immat Gran (auto) Absolute Neuts (auto) Absolute Nucleated RBC 0.000 Nucleated RBC % (auto) 0.0 Neutrophils % (Manual) Band Neutrophils % Lymphocytes % (Manual) Monocytes % (Manual) Abs Neuts (Manual) Lymphocytes # (Manual) Monocytes # (Manual) Nucleated RBCs Platelet Estimate Plt Morphology Comment RBC Morphology Polychromasia Microcytosis Macrocytosis Spherocytes Tear Drop Cells Ovalocytes Sury Cells Acanthocytes (Spur) Schistocytes Smear Tech's Comments Smear Path Review PT INR APTT Sodium 131 L Potassium 4.4 Chloride 92 L Carbon Dioxide 24 Anion Gap 19 BUN 112 H* D Creatinine 6.17 H* Estim Creat Clear Calc 8.4 Estimated GFR 7 POC Glucose Random Glucose 253 H Fasting Glucose Lactic Acid Calcium 7.7 L Magnesium Iron TIBC % Saturation Unsat Iron Binding Ferritin Total Bilirubin 0.5 Direct Bilirubin 0.4 AST 83 H ALT 51 H Alkaline Phosphatase 293 H D Lactate Dehydrogenase Troponin I High Sens B-Natriuretic Peptide Total Protein 6.1 L Albumin 2.0 L Lipase Vitamin B12 Folate Vancomycin Trough Random Vancomycin 49.5 H* C. difficile Toxin A&B C. difficile Antigen C. difficile Interpret Ur L.pneumophila Ag Ur Strep pneumoniae Ag Blood Type Antibody Screen Crossmatch 05/06/20 05/06/20 05/06/20 07:32 10:50 13:42 WBC RBC Hgb Hct MCV MCH MCHC RDW Plt Count MPV Immature Gran % (Auto) Neut % (Auto) Lymph % (Auto) [place] % (Auto) Eos % (Auto) Baso % (Auto) Lymph # (Auto) [place] # (Auto) Eos # (Auto) Baso # (Auto) Abs Immat Gran (auto) Absolute Neuts (auto) Absolute Nucleated RBC Nucleated RBC % (auto) Neutrophils % (Manual) Band Neutrophils % Lymphocytes % (Manual) Monocytes % (Manual) Abs Neuts (Manual) Lymphocytes # (Manual) Monocytes # (Manual) Nucleated RBCs Platelet Estimate Plt Morphology Comment RBC Morphology Polychromasia Microcytosis Macrocytosis Spherocytes Tear Drop Cells Ovalocytes Sury Cells Acanthocytes (Spur) Schistocytes Smear Tech's Comments Smear Path Review PT INR APTT Sodium Potassium Chloride Carbon Dioxide Anion Gap BUN Creatinine Estim Creat Clear Calc Estimated GFR POC Glucose 244 H 318 H Random Glucose Fasting Glucose Lactic Acid Calcium Magnesium Iron TIBC % Saturation Unsat Iron Binding Ferritin Total Bilirubin Direct Bilirubin AST ALT Alkaline Phosphatase Lactate Dehydrogenase Troponin I High Sens B-Natriuretic Peptide Total Protein Albumin Lipase Vitamin B12 Folate Vancomycin Trough 30.6 H* Random Vancomycin C. difficile Toxin A&B C. difficile Antigen C. difficile Interpret Ur L.pneumophila Ag Ur Strep pneumoniae Ag Blood Type Antibody Screen Crossmatch 05/06/20 05/06/20 05/06/20 16:26 17:19 20:09 WBC RBC Hgb Hct MCV MCH MCHC RDW Plt Count MPV Immature Gran % (Auto) Neut % (Auto) Lymph % (Auto) [place] % (Auto) Eos % (Auto) Baso % (Auto) Lymph # (Auto) [place] # (Auto) Eos # (Auto) Baso # (Auto) Abs Immat Gran (auto) Absolute Neuts (auto) Absolute Nucleated RBC Nucleated RBC % (auto) Neutrophils % (Manual) Band Neutrophils % Lymphocytes % (Manual) Monocytes % (Manual) Abs Neuts (Manual) Lymphocytes # (Manual) Monocytes # (Manual) Nucleated RBCs Platelet Estimate Plt Morphology Comment RBC Morphology Polychromasia Microcytosis Macrocytosis Spherocytes Tear Drop Cells Ovalocytes Mallard Cells Acanthocytes (Spur) Schistocytes Smear Tech's Comments Smear Path Review PT INR APTT Sodium Potassium Chloride Carbon Dioxide Anion Gap BUN Creatinine Estim Creat Clear Calc Estimated GFR POC Glucose 98 242 H Random Glucose Fasting Glucose Lactic Acid Calcium Magnesium Iron TIBC % Saturation Unsat Iron Binding Ferritin Total Bilirubin Direct Bilirubin AST ALT Alkaline Phosphatase Lactate Dehydrogenase Troponin I High Sens B-Natriuretic Peptide Total Protein Albumin Lipase Vitamin B12 Folate Vancomycin Trough Random Vancomycin 23.1 H C. difficile Toxin A&B C. difficile Antigen C. difficile Interpret Ur L.pneumophila Ag Ur Strep pneumoniae Ag Blood Type Antibody Screen Crossmatch 05/07/20 05/07/20 05/07/20 04:01 04:01 04:01 WBC 8.0 RBC 3.29 L Hgb 10.3 L Hct 30.5 L MCV 92.7 MCH 31.3 MCHC 33.8 RDW 14.1 Plt Count 105 L MPV 12.3 Immature Gran % (Auto) Neut % (Auto) Lymph % (Auto) [place] % (Auto) Eos % (Auto) Baso % (Auto) Lymph # (Auto) [place] # (Auto) Eos # (Auto) Baso # (Auto) Abs Immat Gran (auto) Absolute Neuts (auto) Absolute Nucleated RBC 0.000 Nucleated RBC % (auto) 0.0 Neutrophils % (Manual) Band Neutrophils % Lymphocytes % (Manual) Monocytes % (Manual) Abs Neuts (Manual) Lymphocytes # (Manual) Monocytes # (Manual) Nucleated RBCs Platelet Estimate Plt Morphology Comment RBC Morphology Polychromasia Microcytosis Macrocytosis Spherocytes Tear Drop Cells Ovalocytes Sury Cells Acanthocytes (Spur) Schistocytes Smear Tech's Comments Smear Path Review PT INR APTT Sodium 135 Potassium 3.5 D Chloride 99 Carbon Dioxide 26 Anion Gap 14 BUN 53 H D Creatinine 3.63 H Estim Creat Clear Calc 14.4 Estimated GFR 12 POC Glucose Random Glucose 166 H Fasting Glucose Lactic Acid Calcium 7.4 L Magnesium Iron TIBC % Saturation Unsat Iron Binding Ferritin Total Bilirubin Direct Bilirubin AST ALT Alkaline Phosphatase Lactate Dehydrogenase Troponin I High Sens B-Natriuretic Peptide Total Protein Albumin Lipase Vitamin B12 Folate Vancomycin Trough Random Vancomycin 23.5 H C. difficile Toxin A&B C. difficile Antigen C. difficile Interpret Ur L.pneumophila Ag Ur Strep pneumoniae Ag Blood Type Antibody Screen Crossmatch 05/07/20 05/07/20 05/07/20 04:01 07:31 09:40 WBC 8.4 RBC 3.42 L Hgb 10.8 L Hct 32.6 L MCV 95.3 MCH 31.6 MCHC 33.1 RDW 14.5 Plt Count 94 L MPV 12.7 H Immature Gran % (Auto) Neut % (Auto) Lymph % (Auto) [place] % (Auto) Eos % (Auto) Baso % (Auto) Lymph # (Auto) [place] # (Auto) Eos # (Auto) Baso # (Auto) Abs Immat Gran (auto) Absolute Neuts (auto) Absolute Nucleated RBC 0.000 Nucleated RBC % (auto) 0.0 Neutrophils % (Manual) Band Neutrophils % Lymphocytes % (Manual) Monocytes % (Manual) Abs Neuts (Manual) Lymphocytes # (Manual) Monocytes # (Manual) Nucleated RBCs Platelet Estimate Plt Morphology Comment RBC Morphology Polychromasia Microcytosis Macrocytosis Spherocytes Tear Drop Cells Ovalocytes Sury Cells Acanthocytes (Spur) Schistocytes Smear Tech's Comments Smear Path Review PT 11.6 INR 1.0 APTT Sodium Potassium Chloride Carbon Dioxide Anion Gap BUN Creatinine Estim Creat Clear Calc Estimated GFR POC Glucose 125 H Random Glucose Fasting Glucose Lactic Acid Calcium Magnesium Iron TIBC % Saturation Unsat Iron Binding Ferritin Total Bilirubin Direct Bilirubin AST ALT Alkaline Phosphatase Lactate Dehydrogenase Troponin I High Sens B-Natriuretic Peptide Total Protein Albumin Lipase Vitamin B12 Folate Vancomycin Trough Random Vancomycin C. difficile Toxin A&B C. difficile Antigen C. difficile Interpret Ur L.pneumophila Ag Ur Strep pneumoniae Ag Blood Type Antibody Screen Crossmatch 05/07/20 05/07/20 05/07/20 11:03 16:16 20:18 WBC RBC Hgb Hct MCV MCH MCHC RDW Plt Count MPV Immature Gran % (Auto) Neut % (Auto) Lymph % (Auto) [place] % (Auto) Eos % (Auto) Baso % (Auto) Lymph # (Auto) [place] # (Auto) Eos # (Auto) Baso # (Auto) Abs Immat Gran (auto) Absolute Neuts (auto) Absolute Nucleated RBC Nucleated RBC % (auto) Neutrophils % (Manual) Band Neutrophils % Lymphocytes % (Manual) Monocytes % (Manual) Abs Neuts (Manual) Lymphocytes # (Manual) Monocytes # (Manual) Nucleated RBCs Platelet Estimate Plt Morphology Comment RBC Morphology Polychromasia Microcytosis Macrocytosis Spherocytes Tear Drop Cells Ovalocytes Mallard Cells Acanthocytes (Spur) Schistocytes Smear Tech's Comments Smear Path Review PT INR APTT Sodium Potassium Chloride Carbon Dioxide Anion Gap BUN Creatinine Estim Creat Clear Calc Estimated GFR POC Glucose 193 H 222 H 190 H Random Glucose Fasting Glucose Lactic Acid Calcium Magnesium Iron TIBC % Saturation Unsat Iron Binding Ferritin Total Bilirubin Direct Bilirubin AST ALT Alkaline Phosphatase Lactate Dehydrogenase Troponin I High Sens B-Natriuretic Peptide Total Protein Albumin Lipase Vitamin B12 Folate Vancomycin Trough Random Vancomycin C. difficile Toxin A&B C. difficile Antigen C. difficile Interpret Ur L.pneumophila Ag Ur Strep pneumoniae Ag Blood Type Antibody Screen Crossmatch 05/08/20 05/08/20 05/08/20 05:48 05:48 07:48 WBC 5.9 RBC 3.10 L Hgb 9.7 L Hct 29.0 L MCV 93.5 MCH 31.3 MCHC 33.4 RDW 14.3 Plt Count 73 L MPV 12.8 H Immature Gran % (Auto) Neut % (Auto) Lymph % (Auto) [place] % (Auto) Eos % (Auto) Baso % (Auto) Lymph # (Auto) [place] # (Auto) Eos # (Auto) Baso # (Auto) Abs Immat Gran (auto) Absolute Neuts (auto) Absolute Nucleated RBC 0.000 Nucleated RBC % (auto) 0.0 Neutrophils % (Manual) Band Neutrophils % Lymphocytes % (Manual) Monocytes % (Manual) Abs Neuts (Manual) Lymphocytes # (Manual) Monocytes # (Manual) Nucleated RBCs Platelet Estimate Plt Morphology Comment RBC Morphology Polychromasia Microcytosis Macrocytosis Spherocytes Tear Drop Cells Ovalocytes Mallard Cells Acanthocytes (Spur) Schistocytes Smear Tech's Comments Smear Path Review PT INR APTT Sodium 137 Potassium 3.7 Chloride 102 Carbon Dioxide 22 Anion Gap 17 BUN 41 H Creatinine 2.81 H Estim Creat Clear Calc 18.5 Estimated GFR 17 POC Glucose 261 H Random Glucose 258 H D Fasting Glucose Lactic Acid Calcium 7.1 L Magnesium Iron TIBC % Saturation Unsat Iron Binding Ferritin Total Bilirubin Direct Bilirubin AST ALT Alkaline Phosphatase Lactate Dehydrogenase Troponin I High Sens B-Natriuretic Peptide Total Protein Albumin Lipase Vitamin B12 Folate Vancomycin Trough Random Vancomycin C. difficile Toxin A&B C. difficile Antigen C. difficile Interpret Ur L.pneumophila Ag Ur Strep pneumoniae Ag Blood Type Antibody Screen Crossmatch 05/08/20 05/08/20 05/08/20 11:47 16:46 20:17 WBC RBC Hgb Hct MCV MCH MCHC RDW Plt Count MPV Immature Gran % (Auto) Neut % (Auto) Lymph % (Auto) [place] % (Auto) Eos % (Auto) Baso % (Auto) Lymph # (Auto) [place] # (Auto) Eos # (Auto) Baso # (Auto) Abs Immat Gran (auto) Absolute Neuts (auto) Absolute Nucleated RBC Nucleated RBC % (auto) Neutrophils % (Manual) Band Neutrophils % Lymphocytes % (Manual) Monocytes % (Manual) Abs Neuts (Manual) Lymphocytes # (Manual) Monocytes # (Manual) Nucleated RBCs Platelet Estimate Plt Morphology Comment RBC Morphology Polychromasia Microcytosis Macrocytosis Spherocytes Tear Drop Cells Ovalocytes Sury Cells Acanthocytes (Spur) Schistocytes Smear Tech's Comments Smear Path Review PT INR APTT Sodium Potassium Chloride Carbon Dioxide Anion Gap BUN Creatinine Estim Creat Clear Calc Estimated GFR POC Glucose 284 H 174 H 206 H Random Glucose Fasting Glucose Lactic Acid Calcium Magnesium Iron TIBC % Saturation Unsat Iron Binding Ferritin Total Bilirubin Direct Bilirubin AST ALT Alkaline Phosphatase Lactate Dehydrogenase Troponin I High Sens B-Natriuretic Peptide Total Protein Albumin Lipase Vitamin B12 Folate Vancomycin Trough Random Vancomycin C. difficile Toxin A&B C. difficile Antigen C. difficile Interpret Ur L.pneumophila Ag Ur Strep pneumoniae Ag Blood Type Antibody Screen Crossmatch 05/09/20 05/09/20 05/09/20 06:26 06:26 07:52 WBC 7.5 RBC 3.04 L Hgb 9.6 L Hct 28.7 L MCV 94.4 MCH 31.6 MCHC 33.4 RDW 14.6 Plt Count 72 L MPV Not Reportable Immature Gran % (Auto) Neut % (Auto) Lymph % (Auto) [place] % (Auto) Eos % (Auto) Baso % (Auto) Lymph # (Auto) [place] # (Auto) Eos # (Auto) Baso # (Auto) Abs Immat Gran (auto) Absolute Neuts (auto) Absolute Nucleated RBC 0.000 Nucleated RBC % (auto) 0.0 Neutrophils % (Manual) Band Neutrophils % Lymphocytes % (Manual) Monocytes % (Manual) Abs Neuts (Manual) Lymphocytes # (Manual) Monocytes # (Manual) Nucleated RBCs Platelet Estimate Plt Morphology Comment RBC Morphology Polychromasia Microcytosis Macrocytosis Spherocytes Tear Drop Cells Ovalocytes Mallard Cells Acanthocytes (Spur) Schistocytes Smear Tech's Comments Smear Path Review PT INR APTT Sodium 135 Potassium 4.2 Chloride 104 Carbon Dioxide 20 L Anion Gap 15 BUN 66 H D Creatinine 3.80 H Estim Creat Clear Calc 13.7 Estimated GFR 12 POC Glucose 262 H Random Glucose 292 H Fasting Glucose Lactic Acid Calcium 7.1 L Magnesium Iron TIBC % Saturation Unsat Iron Binding Ferritin Total Bilirubin Direct Bilirubin AST ALT Alkaline Phosphatase Lactate Dehydrogenase Troponin I High Sens B-Natriuretic Peptide Total Protein Albumin Lipase Vitamin B12 Folate Vancomycin Trough Random Vancomycin C. difficile Toxin A&B C. difficile Antigen C. difficile Interpret Ur L.pneumophila Ag Ur Strep pneumoniae Ag Blood Type Antibody Screen Crossmatch 05/09/20 05/09/20 05/09/20 11:59 16:54 20:57 WBC RBC Hgb Hct MCV MCH MCHC RDW Plt Count MPV Immature Gran % (Auto) Neut % (Auto) Lymph % (Auto) [place] % (Auto) Eos % (Auto) Baso % (Auto) Lymph # (Auto) [place] # (Auto) Eos # (Auto) Baso # (Auto) Abs Immat Gran (auto) Absolute Neuts (auto) Absolute Nucleated RBC Nucleated RBC % (auto) Neutrophils % (Manual) Band Neutrophils % Lymphocytes % (Manual) Monocytes % (Manual) Abs Neuts (Manual) Lymphocytes # (Manual) Monocytes # (Manual) Nucleated RBCs Platelet Estimate Plt Morphology Comment RBC Morphology Polychromasia Microcytosis Macrocytosis Spherocytes Tear Drop Cells Ovalocytes Mallard Cells Acanthocytes (Spur) Schistocytes Smear Tech's Comments Smear Path Review PT INR APTT Sodium Potassium Chloride Carbon Dioxide Anion Gap BUN Creatinine Estim Creat Clear Calc Estimated GFR POC Glucose 231 H 186 H 342 H Random Glucose Fasting Glucose Lactic Acid Calcium Magnesium Iron TIBC % Saturation Unsat Iron Binding Ferritin Total Bilirubin Direct Bilirubin AST ALT Alkaline Phosphatase Lactate Dehydrogenase Troponin I High Sens B-Natriuretic Peptide Total Protein Albumin Lipase Vitamin B12 Folate Vancomycin Trough Random Vancomycin C. difficile Toxin A&B C. difficile Antigen C. difficile Interpret Ur L.pneumophila Ag Ur Strep pneumoniae Ag Blood Type Antibody Screen Crossmatch 05/10/20 05/10/20 05/10/20 06:02 08:20 12:09 WBC RBC Hgb Hct MCV MCH MCHC RDW Plt Count MPV Immature Gran % (Auto) Neut % (Auto) Lymph % (Auto) [place] % (Auto) Eos % (Auto) Baso % (Auto) Lymph # (Auto) [place] # (Auto) Eos # (Auto) Baso # (Auto) Abs Immat Gran (auto) Absolute Neuts (auto) Absolute Nucleated RBC Nucleated RBC % (auto) Neutrophils % (Manual) Band Neutrophils % Lymphocytes % (Manual) Monocytes % (Manual) Abs Neuts (Manual) Lymphocytes # (Manual) Monocytes # (Manual) Nucleated RBCs Platelet Estimate Plt Morphology Comment RBC Morphology Polychromasia Microcytosis Macrocytosis Spherocytes Tear Drop Cells Ovalocytes Mallard Cells Acanthocytes (Spur) Schistocytes Smear Tech's Comments Smear Path Review PT INR APTT Sodium 136 Potassium 4.0 Chloride 103 Carbon Dioxide 21 L Anion Gap 16 BUN 84 H* D Creatinine 4.53 H* Estim Creat Clear Calc 11.6 Estimated GFR 10 POC Glucose 166 H 311 H Random Glucose 182 H D Fasting Glucose Lactic Acid Calcium 6.8 L Magnesium Iron TIBC % Saturation Unsat Iron Binding Ferritin Total Bilirubin Direct Bilirubin AST ALT Alkaline Phosphatase Lactate Dehydrogenase Troponin I High Sens B-Natriuretic Peptide Total Protein Albumin Lipase Vitamin B12 Folate Vancomycin Trough Random Vancomycin C. difficile Toxin A&B C. difficile Antigen C. difficile Interpret Ur L.pneumophila Ag Ur Strep pneumoniae Ag Blood Type Antibody Screen Crossmatch 05/10/20 05/10/20 05/11/20 16:14 20:28 05:22 WBC RBC Hgb Hct MCV MCH MCHC RDW Plt Count MPV Immature Gran % (Auto) Neut % (Auto) Lymph % (Auto) [place] % (Auto) Eos % (Auto) Baso % (Auto) Lymph # (Auto) [place] # (Auto) Eos # (Auto) Baso # (Auto) Abs Immat Gran (auto) Absolute Neuts (auto) Absolute Nucleated RBC Nucleated RBC % (auto) Neutrophils % (Manual) Band Neutrophils % Lymphocytes % (Manual) Monocytes % (Manual) Abs Neuts (Manual) Lymphocytes # (Manual) Monocytes # (Manual) Nucleated RBCs Platelet Estimate Plt Morphology Comment RBC Morphology Polychromasia Microcytosis Macrocytosis Spherocytes Tear Drop Cells Ovalocytes Sury Cells Acanthocytes (Spur) Schistocytes Smear Tech's Comments Smear Path Review PT INR APTT Sodium 135 Potassium 4.0 Chloride 104 Carbon Dioxide 15 L Anion Gap 20 BUN 106 H* D Creatinine 5.10 H* Estim Creat Clear Calc 10.4 Estimated GFR 8 POC Glucose 270 H 339 H Random Glucose 87 D Fasting Glucose Lactic Acid Calcium 6.1 L D Magnesium Iron TIBC % Saturation Unsat Iron Binding Ferritin Total Bilirubin Direct Bilirubin AST ALT Alkaline Phosphatase Lactate Dehydrogenase Troponin I High Sens B-Natriuretic Peptide Total Protein Albumin Lipase Vitamin B12 Folate Vancomycin Trough Random Vancomycin C. difficile Toxin A&B C. difficile Antigen C. difficile Interpret Ur L.pneumophila Ag Ur Strep pneumoniae Ag Blood Type Antibody Screen Crossmatch 05/11/20 05/11/20 05/11/20 08:06 11:53 15:52 WBC RBC Hgb Hct MCV MCH MCHC RDW Plt Count MPV Immature Gran % (Auto) Neut % (Auto) Lymph % (Auto) [place] % (Auto) Eos % (Auto) Baso % (Auto) Lymph # (Auto) [place] # (Auto) Eos # (Auto) Baso # (Auto) Abs Immat Gran (auto) Absolute Neuts (auto) Absolute Nucleated RBC Nucleated RBC % (auto) Neutrophils % (Manual) Band Neutrophils % Lymphocytes % (Manual) Monocytes % (Manual) Abs Neuts (Manual) Lymphocytes # (Manual) Monocytes # (Manual) Nucleated RBCs Platelet Estimate Plt Morphology Comment RBC Morphology Polychromasia Microcytosis Macrocytosis Spherocytes Tear Drop Cells Ovalocytes Sury Cells Acanthocytes (Spur) Schistocytes Smear Tech's Comments Smear Path Review PT INR APTT Sodium Potassium Chloride Carbon Dioxide Anion Gap BUN Creatinine Estim Creat Clear Calc Estimated GFR POC Glucose 82 151 H 219 H Random Glucose Fasting Glucose Lactic Acid Calcium Magnesium Iron TIBC % Saturation Unsat Iron Binding Ferritin Total Bilirubin Direct Bilirubin AST ALT Alkaline Phosphatase Lactate Dehydrogenase Troponin I High Sens B-Natriuretic Peptide Total Protein Albumin Lipase Vitamin B12 Folate Vancomycin Trough Random Vancomycin C. difficile Toxin A&B C. difficile Antigen C. difficile Interpret Ur L.pneumophila Ag Ur Strep pneumoniae Ag Blood Type Antibody Screen Crossmatch 05/11/20 05/12/20 05/12/20 20:15 05:39 05:39 WBC 15.6 H RBC 3.52 L Hgb 11.1 L Hct 32.6 L MCV 92.6 MCH 31.5 MCHC 34.0 RDW 15.1 Plt Count 108 L D MPV Not Reportable Immature Gran % (Auto) Neut % (Auto) Lymph % (Auto) [place] % (Auto) Eos % (Auto) Baso % (Auto) Lymph # (Auto) [place] # (Auto) Eos # (Auto) Baso # (Auto) Abs Immat Gran (auto) Absolute Neuts (auto) Absolute Nucleated RBC 0.000 Nucleated RBC % (auto) 0.0 Neutrophils % (Manual) Band Neutrophils % Lymphocytes % (Manual) Monocytes % (Manual) Abs Neuts (Manual) Lymphocytes # (Manual) Monocytes # (Manual) Nucleated RBCs Platelet Estimate Plt Morphology Comment RBC Morphology Polychromasia Microcytosis Macrocytosis Spherocytes Tear Drop Cells Ovalocytes Sury Cells Acanthocytes (Spur) Schistocytes Smear Tech's Comments Smear Path Review PT 11.7 INR 1.0 APTT Sodium Potassium Chloride Carbon Dioxide Anion Gap BUN Creatinine Estim Creat Clear Calc Estimated GFR POC Glucose 202 H Random Glucose Fasting Glucose Lactic Acid Calcium Magnesium Iron TIBC % Saturation Unsat Iron Binding Ferritin Total Bilirubin Direct Bilirubin AST ALT Alkaline Phosphatase Lactate Dehydrogenase Troponin I High Sens B-Natriuretic Peptide Total Protein Albumin Lipase Vitamin B12 Folate Vancomycin Trough Random Vancomycin C. difficile Toxin A&B C. difficile Antigen C. difficile Interpret Ur L.pneumophila Ag Ur Strep pneumoniae Ag Blood Type Antibody Screen Crossmatch 05/12/20 05/12/20 05/12/20 05:39 07:31 11:16 WBC RBC Hgb Hct MCV MCH MCHC RDW Plt Count MPV Immature Gran % (Auto) Neut % (Auto) Lymph % (Auto) [place] % (Auto) Eos % (Auto) Baso % (Auto) Lymph # (Auto) [place] # (Auto) Eos # (Auto) Baso # (Auto) Abs Immat Gran (auto) Absolute Neuts (auto) Absolute Nucleated RBC Nucleated RBC % (auto) Neutrophils % (Manual) Band Neutrophils % Lymphocytes % (Manual) Monocytes % (Manual) Abs Neuts (Manual) Lymphocytes # (Manual) Monocytes # (Manual) Nucleated RBCs Platelet Estimate Plt Morphology Comment RBC Morphology Polychromasia Microcytosis Macrocytosis Spherocytes Tear Drop Cells Ovalocytes Sury Cells Acanthocytes (Spur) Schistocytes Smear Tech's Comments Smear Path Review PT INR APTT Sodium 134 L Potassium 4.7 Chloride 102 Carbon Dioxide 12 L Anion Gap 25 H BUN 110 H* Creatinine 5.68 H* Estim Creat Clear Calc 9.3 Estimated GFR 7 POC Glucose 72 68 Random Glucose 89 Fasting Glucose Lactic Acid Calcium 5.7 L* D Magnesium Iron TIBC % Saturation Unsat Iron Binding Ferritin Total Bilirubin 0.6 Direct Bilirubin 0.3 AST 57 H ALT 76 H Alkaline Phosphatase 215 H D Lactate Dehydrogenase Troponin I High Sens B-Natriuretic Peptide Total Protein 5.8 L Albumin 2.2 L Lipase Vitamin B12 Folate Vancomycin Trough Random Vancomycin C. difficile Toxin A&B C. difficile Antigen C. difficile Interpret Ur L.pneumophila Ag Ur Strep pneumoniae Ag Blood Type Antibody Screen Crossmatch 05/12/20 05/12/20 05/13/20 17:04 20:44 05:34 WBC RBC Hgb Hct MCV MCH MCHC RDW Plt Count MPV Immature Gran % (Auto) Neut % (Auto) Lymph % (Auto) [place] % (Auto) Eos % (Auto) Baso % (Auto) Lymph # (Auto) [place] # (Auto) Eos # (Auto) Baso # (Auto) Abs Immat Gran (auto) Absolute Neuts (auto) Absolute Nucleated RBC Nucleated RBC % (auto) Neutrophils % (Manual) Band Neutrophils % Lymphocytes % (Manual) Monocytes % (Manual) Abs Neuts (Manual) Lymphocytes # (Manual) Monocytes # (Manual) Nucleated RBCs Platelet Estimate Plt Morphology Comment RBC Morphology Polychromasia Microcytosis Macrocytosis Spherocytes Tear Drop Cells Ovalocytes Sury Cells Acanthocytes (Spur) Schistocytes Smear Tech's Comments Smear Path Review PT INR APTT Sodium 138 Potassium 3.0 L D Chloride 101 Carbon Dioxide 25 Anion Gap 15 BUN 64 H Creatinine 3.34 H Estim Creat Clear Calc 16.0 Estimated GFR 14 POC Glucose 115 101 Random Glucose 48 L* Fasting Glucose Lactic Acid Calcium 6.1 L D Magnesium Iron TIBC % Saturation Unsat Iron Binding Ferritin Total Bilirubin Direct Bilirubin AST ALT Alkaline Phosphatase Lactate Dehydrogenase Troponin I High Sens B-Natriuretic Peptide Total Protein Albumin Lipase Vitamin B12 Folate Vancomycin Trough Random Vancomycin C. difficile Toxin A&B C. difficile Antigen C. difficile Interpret Ur L.pneumophila Ag Ur Strep pneumoniae Ag Blood Type Antibody Screen Crossmatch 05/13/20 05/13/20 05/13/20 06:59 07:19 07:58 WBC RBC Hgb Hct MCV MCH MCHC RDW Plt Count MPV Immature Gran % (Auto) Neut % (Auto) Lymph % (Auto) [place] % (Auto) Eos % (Auto) Baso % (Auto) Lymph # (Auto) [place] # (Auto) Eos # (Auto) Baso # (Auto) Abs Immat Gran (auto) Absolute Neuts (auto) Absolute Nucleated RBC Nucleated RBC % (auto) Neutrophils % (Manual) Band Neutrophils % Lymphocytes % (Manual) Monocytes % (Manual) Abs Neuts (Manual) Lymphocytes # (Manual) Monocytes # (Manual) Nucleated RBCs Platelet Estimate Plt Morphology Comment RBC Morphology Polychromasia Microcytosis Macrocytosis Spherocytes Tear Drop Cells Ovalocytes Sury Cells Acanthocytes (Spur) Schistocytes Smear Tech's Comments Smear Path Review PT INR APTT Sodium Potassium Chloride Carbon Dioxide Anion Gap BUN Creatinine Estim Creat Clear Calc Estimated GFR POC Glucose 37 L* 58 L* 86 Random Glucose Fasting Glucose Lactic Acid Calcium Magnesium Iron TIBC % Saturation Unsat Iron Binding Ferritin Total Bilirubin Direct Bilirubin AST ALT Alkaline Phosphatase Lactate Dehydrogenase Troponin I High Sens B-Natriuretic Peptide Total Protein Albumin Lipase Vitamin B12 Folate Vancomycin Trough Random Vancomycin C. difficile Toxin A&B C. difficile Antigen C. difficile Interpret Ur L.pneumophila Ag Ur Strep pneumoniae Ag Blood Type Antibody Screen Crossmatch 05/13/20 05/13/20 05/13/20 11:16 13:00 16:45 WBC RBC Hgb Hct MCV MCH MCHC RDW Plt Count MPV Immature Gran % (Auto) Neut % (Auto) Lymph % (Auto) [place] % (Auto) Eos % (Auto) Baso % (Auto) Lymph # (Auto) [place] # (Auto) Eos # (Auto) Baso # (Auto) Abs Immat Gran (auto) Absolute Neuts (auto) Absolute Nucleated RBC Nucleated RBC % (auto) Neutrophils % (Manual) Band Neutrophils % Lymphocytes % (Manual) Monocytes % (Manual) Abs Neuts (Manual) Lymphocytes # (Manual) Monocytes # (Manual) Nucleated RBCs Platelet Estimate Plt Morphology Comment RBC Morphology Polychromasia Microcytosis Macrocytosis Spherocytes Tear Drop Cells Ovalocytes Sury Cells Acanthocytes (Spur) Schistocytes Smear Tech's Comments Smear Path Review PT INR APTT Sodium Potassium Chloride Carbon Dioxide Anion Gap BUN Creatinine Estim Creat Clear Calc Estimated GFR POC Glucose 58 L* 102 122 H Random Glucose Fasting Glucose Lactic Acid Calcium Magnesium Iron TIBC % Saturation Unsat Iron Binding Ferritin Total Bilirubin Direct Bilirubin AST ALT Alkaline Phosphatase Lactate Dehydrogenase Troponin I High Sens B-Natriuretic Peptide Total Protein Albumin Lipase Vitamin B12 Folate Vancomycin Trough Random Vancomycin C. difficile Toxin A&B C. difficile Antigen C. difficile Interpret Ur L.pneumophila Ag Ur Strep pneumoniae Ag Blood Type Antibody Screen Crossmatch 05/13/20 05/14/20 05/14/20 21:36 05:31 08:02 WBC RBC Hgb Hct MCV MCH MCHC RDW Plt Count MPV Immature Gran % (Auto) Neut % (Auto) Lymph % (Auto) [place] % (Auto) Eos % (Auto) Baso % (Auto) Lymph # (Auto) [place] # (Auto) Eos # (Auto) Baso # (Auto) Abs Immat Gran (auto) Absolute Neuts (auto) Absolute Nucleated RBC Nucleated RBC % (auto) Neutrophils % (Manual) Band Neutrophils % Lymphocytes % (Manual) Monocytes % (Manual) Abs Neuts (Manual) Lymphocytes # (Manual) Monocytes # (Manual) Nucleated RBCs Platelet Estimate Plt Morphology Comment RBC Morphology Polychromasia Microcytosis Macrocytosis Spherocytes Tear Drop Cells Ovalocytes Sury Cells Acanthocytes (Spur) Schistocytes Smear Tech's Comments Smear Path Review PT INR APTT Sodium 139 Potassium 3.6 Chloride 101 Carbon Dioxide 25 Anion Gap 17 BUN 82 H* D Creatinine 4.25 H* Estim Creat Clear Calc 12.5 Estimated GFR 10 POC Glucose 147 H 69 Random Glucose 92 D Fasting Glucose Lactic Acid Calcium 5.8 L* Magnesium Iron TIBC % Saturation Unsat Iron Binding Ferritin Total Bilirubin Direct Bilirubin AST ALT Alkaline Phosphatase Lactate Dehydrogenase Troponin I High Sens B-Natriuretic Peptide Total Protein Albumin Lipase Vitamin B12 Folate Vancomycin Trough Random Vancomycin C. difficile Toxin A&B C. difficile Antigen C. difficile Interpret Ur L.pneumophila Ag Ur Strep pneumoniae Ag Blood Type Antibody Screen Crossmatch 05/14/20 05/14/20 05/15/20 16:12 20:35 06:56 WBC 14.0 H RBC 3.14 L Hgb 9.7 L Hct 29.5 L MCV 93.9 MCH 30.9 MCHC 32.9 RDW 15.4 Plt Count 59 L D MPV Not Reportable Immature Gran % (Auto) Neut % (Auto) Lymph % (Auto) [place] % (Auto) Eos % (Auto) Baso % (Auto) Lymph # (Auto) [place] # (Auto) Eos # (Auto) Baso # (Auto) Abs Immat Gran (auto) Absolute Neuts (auto) Absolute Nucleated RBC 0.000 Nucleated RBC % (auto) 0.0 Neutrophils % (Manual) Band Neutrophils % Lymphocytes % (Manual) Monocytes % (Manual) Abs Neuts (Manual) Lymphocytes # (Manual) Monocytes # (Manual) Nucleated RBCs Platelet Estimate Plt Morphology Comment RBC Morphology Polychromasia Microcytosis Macrocytosis Spherocytes Tear Drop Cells Ovalocytes Mallard Cells Acanthocytes (Spur) Schistocytes Smear Tech's Comments Smear Path Review PT INR APTT Sodium Potassium Chloride Carbon Dioxide Anion Gap BUN Creatinine Estim Creat Clear Calc Estimated GFR POC Glucose 122 H 209 H Random Glucose Fasting Glucose Lactic Acid Calcium Magnesium Iron TIBC % Saturation Unsat Iron Binding Ferritin Total Bilirubin Direct Bilirubin AST ALT Alkaline Phosphatase Lactate Dehydrogenase Troponin I High Sens B-Natriuretic Peptide Total Protein Albumin Lipase Vitamin B12 Folate Vancomycin Trough Random Vancomycin C. difficile Toxin A&B C. difficile Antigen C. difficile Interpret Ur L.pneumophila Ag Ur Strep pneumoniae Ag Blood Type Antibody Screen Crossmatch 05/15/20 05/15/20 05/15/20 07:26 07:44 12:00 WBC RBC Hgb Hct MCV MCH MCHC RDW Plt Count MPV Immature Gran % (Auto) Neut % (Auto) Lymph % (Auto) [place] % (Auto) Eos % (Auto) Baso % (Auto) Lymph # (Auto) [place] # (Auto) Eos # (Auto) Baso # (Auto) Abs Immat Gran (auto) Absolute Neuts (auto) Absolute Nucleated RBC Nucleated RBC % (auto) Neutrophils % (Manual) Band Neutrophils % Lymphocytes % (Manual) Monocytes % (Manual) Abs Neuts (Manual) Lymphocytes # (Manual) Monocytes # (Manual) Nucleated RBCs Platelet Estimate Plt Morphology Comment RBC Morphology Polychromasia Microcytosis Macrocytosis Spherocytes Tear Drop Cells Ovalocytes Sury Cells Acanthocytes (Spur) Schistocytes Smear Tech's Comments Smear Path Review PT INR APTT Sodium 142 Potassium 3.8 Chloride 103 Carbon Dioxide 29 Anion Gap 14 BUN 48 H Creatinine 2.90 H Estim Creat Clear Calc 17.9 Estimated GFR 16 POC Glucose 86 Random Glucose 81 Fasting Glucose Lactic Acid Calcium 6.4 L D Magnesium Iron TIBC % Saturation Unsat Iron Binding Ferritin Total Bilirubin Direct Bilirubin AST ALT Alkaline Phosphatase Lactate Dehydrogenase Troponin I High Sens B-Natriuretic Peptide Total Protein Albumin Lipase Vitamin B12 Folate Vancomycin Trough Random Vancomycin C. difficile Toxin A&B Negative C. difficile Antigen Negative C. difficile Interpret SEE NOTE Ur L.pneumophila Ag Ur Strep pneumoniae Ag Blood Type Antibody Screen Crossmatch 05/15/20 05/15/20 05/15/20 12:05 16:04 20:08 WBC RBC Hgb Hct MCV MCH MCHC RDW Plt Count MPV Immature Gran % (Auto) Neut % (Auto) Lymph % (Auto) [place] % (Auto) Eos % (Auto) Baso % (Auto) Lymph # (Auto) [place] # (Auto) Eos # (Auto) Baso # (Auto) Abs Immat Gran (auto) Absolute Neuts (auto) Absolute Nucleated RBC Nucleated RBC % (auto) Neutrophils % (Manual) Band Neutrophils % Lymphocytes % (Manual) Monocytes % (Manual) Abs Neuts (Manual) Lymphocytes # (Manual) Monocytes # (Manual) Nucleated RBCs Platelet Estimate Plt Morphology Comment RBC Morphology Polychromasia Microcytosis Macrocytosis Spherocytes Tear Drop Cells Ovalocytes Mallard Cells Acanthocytes (Spur) Schistocytes Smear Tech's Comments Smear Path Review PT INR APTT Sodium Potassium Chloride Carbon Dioxide Anion Gap BUN Creatinine Estim Creat Clear Calc Estimated GFR POC Glucose 168 H 150 H 171 H Random Glucose Fasting Glucose Lactic Acid Calcium Magnesium Iron TIBC % Saturation Unsat Iron Binding Ferritin Total Bilirubin Direct Bilirubin AST ALT Alkaline Phosphatase Lactate Dehydrogenase Troponin I High Sens B-Natriuretic Peptide Total Protein Albumin Lipase Vitamin B12 Folate Vancomycin Trough Random Vancomycin C. difficile Toxin A&B C. difficile Antigen C. difficile Interpret Ur L.pneumophila Ag Ur Strep pneumoniae Ag Blood Type Antibody Screen Crossmatch 05/16/20 05/16/20 05/16/20 07:37 10:51 10:51 WBC RBC Hgb Hct MCV MCH MCHC RDW Plt Count MPV Immature Gran % (Auto) Neut % (Auto) Lymph % (Auto) [place] % (Auto) Eos % (Auto) Baso % (Auto) Lymph # (Auto) [place] # (Auto) Eos # (Auto) Baso # (Auto) Abs Immat Gran (auto) Absolute Neuts (auto) Absolute Nucleated RBC Nucleated RBC % (auto) Neutrophils % (Manual) Band Neutrophils % Lymphocytes % (Manual) Monocytes % (Manual) Abs Neuts (Manual) Lymphocytes # (Manual) Monocytes # (Manual) Nucleated RBCs Platelet Estimate Plt Morphology Comment RBC Morphology Polychromasia Microcytosis Macrocytosis Spherocytes Tear Drop Cells Ovalocytes Mallard Cells Acanthocytes (Spur) Schistocytes Smear Tech's Comments Smear Path Review PT INR APTT Sodium 140 Potassium 3.1 L Chloride 102 Carbon Dioxide 30 H Anion Gap 11 L BUN 25 H Creatinine 1.53 H Estim Creat Clear Calc 34.0 Estimated GFR 34 POC Glucose 80 Random Glucose 107 Fasting Glucose Lactic Acid Calcium 6.9 L D Magnesium Iron TIBC % Saturation Unsat Iron Binding Ferritin Total Bilirubin Direct Bilirubin AST ALT Alkaline Phosphatase Lactate Dehydrogenase Troponin I High Sens B-Natriuretic Peptide Total Protein Albumin Lipase Vitamin B12 Folate Vancomycin Trough Random Vancomycin 11.9 L C. difficile Toxin A&B C. difficile Antigen C. difficile Interpret Ur L.pneumophila Ag Ur Strep pneumoniae Ag Blood Type Antibody Screen Crossmatch 05/16/20 05/16/20 05/16/20 12:39 16:01 20:27 WBC RBC Hgb Hct MCV MCH MCHC RDW Plt Count MPV Immature Gran % (Auto) Neut % (Auto) Lymph % (Auto) [place] % (Auto) Eos % (Auto) Baso % (Auto) Lymph # (Auto) [place] # (Auto) Eos # (Auto) Baso # (Auto) Abs Immat Gran (auto) Absolute Neuts (auto) Absolute Nucleated RBC Nucleated RBC % (auto) Neutrophils % (Manual) Band Neutrophils % Lymphocytes % (Manual) Monocytes % (Manual) Abs Neuts (Manual) Lymphocytes # (Manual) Monocytes # (Manual) Nucleated RBCs Platelet Estimate Plt Morphology Comment RBC Morphology Polychromasia Microcytosis Macrocytosis Spherocytes Tear Drop Cells Ovalocytes Mallard Cells Acanthocytes (Spur) Schistocytes Smear Tech's Comments Smear Path Review PT INR APTT Sodium Potassium Chloride Carbon Dioxide Anion Gap BUN Creatinine Estim Creat Clear Calc Estimated GFR POC Glucose 111 211 H 107 Random Glucose Fasting Glucose Lactic Acid Calcium Magnesium Iron TIBC % Saturation Unsat Iron Binding Ferritin Total Bilirubin Direct Bilirubin AST ALT Alkaline Phosphatase Lactate Dehydrogenase Troponin I High Sens B-Natriuretic Peptide Total Protein Albumin Lipase Vitamin B12 Folate Vancomycin Trough Random Vancomycin C. difficile Toxin A&B C. difficile Antigen C. difficile Interpret Ur L.pneumophila Ag Ur Strep pneumoniae Ag Blood Type Antibody Screen Crossmatch 05/17/20 05/17/20 05/17/20 06:38 08:06 12:08 WBC RBC Hgb Hct MCV MCH MCHC RDW Plt Count MPV Immature Gran % (Auto) Neut % (Auto) Lymph % (Auto) [place] % (Auto) Eos % (Auto) Baso % (Auto) Lymph # (Auto) [place] # (Auto) Eos # (Auto) Baso # (Auto) Abs Immat Gran (auto) Absolute Neuts (auto) Absolute Nucleated RBC Nucleated RBC % (auto) Neutrophils % (Manual) Band Neutrophils % Lymphocytes % (Manual) Monocytes % (Manual) Abs Neuts (Manual) Lymphocytes # (Manual) Monocytes # (Manual) Nucleated RBCs Platelet Estimate Plt Morphology Comment RBC Morphology Polychromasia Microcytosis Macrocytosis Spherocytes Tear Drop Cells Ovalocytes Sury Cells Acanthocytes (Spur) Schistocytes Smear Tech's Comments Smear Path Review PT INR APTT Sodium 140 Potassium 4.1 D Chloride 103 Carbon Dioxide 24 Anion Gap 17 BUN 39 H D Creatinine 2.61 H Estim Creat Clear Calc 19.9 Estimated GFR 18 POC Glucose 90 113 Random Glucose 89 Fasting Glucose Lactic Acid Calcium 6.8 L Magnesium Iron TIBC % Saturation Unsat Iron Binding Ferritin Total Bilirubin Direct Bilirubin AST ALT Alkaline Phosphatase Lactate Dehydrogenase Troponin I High Sens B-Natriuretic Peptide Total Protein Albumin Lipase Vitamin B12 Folate Vancomycin Trough Random Vancomycin C. difficile Toxin A&B C. difficile Antigen C. difficile Interpret Ur L.pneumophila Ag Ur Strep pneumoniae Ag Blood Type Antibody Screen Crossmatch 05/17/20 05/17/20 05/18/20 16:13 20:30 00:40 WBC RBC Hgb Hct MCV MCH MCHC RDW Plt Count MPV Immature Gran % (Auto) Neut % (Auto) Lymph % (Auto) [place] % (Auto) Eos % (Auto) Baso % (Auto) Lymph # (Auto) [place] # (Auto) Eos # (Auto) Baso # (Auto) Abs Immat Gran (auto) Absolute Neuts (auto) Absolute Nucleated RBC Nucleated RBC % (auto) Neutrophils % (Manual) Band Neutrophils % Lymphocytes % (Manual) Monocytes % (Manual) Abs Neuts (Manual) Lymphocytes # (Manual) Monocytes # (Manual) Nucleated RBCs Platelet Estimate Plt Morphology Comment RBC Morphology Polychromasia Microcytosis Macrocytosis Spherocytes Tear Drop Cells Ovalocytes Sury Cells Acanthocytes (Spur) Schistocytes Smear Tech's Comments Smear Path Review PT INR APTT Sodium Potassium Chloride Carbon Dioxide Anion Gap BUN Creatinine Estim Creat Clear Calc Estimated GFR POC Glucose 117 H 191 H 155 H Random Glucose Fasting Glucose Lactic Acid Calcium Magnesium Iron TIBC % Saturation Unsat Iron Binding Ferritin Total Bilirubin Direct Bilirubin AST ALT Alkaline Phosphatase Lactate Dehydrogenase Troponin I High Sens B-Natriuretic Peptide Total Protein Albumin Lipase Vitamin B12 Folate Vancomycin Trough Random Vancomycin C. difficile Toxin A&B C. difficile Antigen C. difficile Interpret Ur L.pneumophila Ag Ur Strep pneumoniae Ag Blood Type Antibody Screen Crossmatch 05/18/20 05/18/20 05/18/20 06:03 06:03 09:23 WBC 14.1 H RBC 3.01 L Hgb 9.5 L Hct 28.9 L MCV 96.0 MCH 31.6 MCHC 32.9 RDW 15.5 Plt Count 51 L MPV Not Reportable Immature Gran % (Auto) Neut % (Auto) Lymph % (Auto) [place] % (Auto) Eos % (Auto) Baso % (Auto) Lymph # (Auto) [place] # (Auto) Eos # (Auto) Baso # (Auto) Abs Immat Gran (auto) Absolute Neuts (auto) Absolute Nucleated RBC 0.000 Nucleated RBC % (auto) 0.0 Neutrophils % (Manual) Band Neutrophils % Lymphocytes % (Manual) Monocytes % (Manual) Abs Neuts (Manual) Lymphocytes # (Manual) Monocytes # (Manual) Nucleated RBCs Platelet Estimate Plt Morphology Comment RBC Morphology Polychromasia Microcytosis Macrocytosis Spherocytes Tear Drop Cells Ovalocytes Sury Cells Acanthocytes (Spur) Schistocytes Smear Tech's Comments Smear Path Review PT INR APTT Sodium 139 Potassium 4.4 Chloride 102 Carbon Dioxide 26 Anion Gap 15 BUN 56 H Creatinine 3.51 H Estim Creat Clear Calc 14.8 Estimated GFR 13 POC Glucose 127 H Random Glucose 141 H D Fasting Glucose Lactic Acid Calcium 6.6 L Magnesium Iron TIBC % Saturation Unsat Iron Binding Ferritin Total Bilirubin Direct Bilirubin AST ALT Alkaline Phosphatase Lactate Dehydrogenase Troponin I High Sens B-Natriuretic Peptide Total Protein Albumin Lipase Vitamin B12 Folate Vancomycin Trough Random Vancomycin C. difficile Toxin A&B C. difficile Antigen C. difficile Interpret Ur L.pneumophila Ag Ur Strep pneumoniae Ag Blood Type Antibody Screen Crossmatch 05/18/20 05/18/20 05/18/20 11:29 12:35 16:37 WBC RBC Hgb Hct MCV MCH MCHC RDW Plt Count MPV Immature Gran % (Auto) Neut % (Auto) Lymph % (Auto) [place] % (Auto) Eos % (Auto) Baso % (Auto) Lymph # (Auto) [place] # (Auto) Eos # (Auto) Baso # (Auto) Abs Immat Gran (auto) Absolute Neuts (auto) Absolute Nucleated RBC Nucleated RBC % (auto) Neutrophils % (Manual) Band Neutrophils % Lymphocytes % (Manual) Monocytes % (Manual) Abs Neuts (Manual) Lymphocytes # (Manual) Monocytes # (Manual) Nucleated RBCs Platelet Estimate Plt Morphology Comment RBC Morphology Polychromasia Microcytosis Macrocytosis Spherocytes Tear Drop Cells Ovalocytes Mallard Cells Acanthocytes (Spur) Schistocytes Smear Tech's Comments Smear Path Review PT INR APTT Sodium Potassium Chloride Carbon Dioxide Anion Gap BUN Creatinine Estim Creat Clear Calc Estimated GFR POC Glucose 118 H 115 115 Random Glucose Fasting Glucose Lactic Acid Calcium Magnesium Iron TIBC % Saturation Unsat Iron Binding Ferritin Total Bilirubin Direct Bilirubin AST ALT Alkaline Phosphatase Lactate Dehydrogenase Troponin I High Sens B-Natriuretic Peptide Total Protein Albumin Lipase Vitamin B12 Folate Vancomycin Trough Random Vancomycin C. difficile Toxin A&B C. difficile Antigen C. difficile Interpret Ur L.pneumophila Ag Ur Strep pneumoniae Ag Blood Type Antibody Screen Crossmatch 05/18/20 05/19/20 05/19/20 20:38 08:19 08:19 WBC RBC Hgb Hct MCV MCH MCHC RDW Plt Count MPV Immature Gran % (Auto) Neut % (Auto) Lymph % (Auto) [place] % (Auto) Eos % (Auto) Baso % (Auto) Lymph # (Auto) [place] # (Auto) Eos # (Auto) Baso # (Auto) Abs Immat Gran (auto) Absolute Neuts (auto) Absolute Nucleated RBC Nucleated RBC % (auto) Neutrophils % (Manual) Band Neutrophils % Lymphocytes % (Manual) Monocytes % (Manual) Abs Neuts (Manual) Lymphocytes # (Manual) Monocytes # (Manual) Nucleated RBCs Platelet Estimate Plt Morphology Comment RBC Morphology Polychromasia Microcytosis Macrocytosis Spherocytes Tear Drop Cells Ovalocytes Sury Cells Acanthocytes (Spur) Schistocytes Smear Tech's Comments Smear Path Review PT INR APTT Sodium 142 Potassium 2.8 L D Chloride 99 Carbon Dioxide 33 H Anion Gap 13 BUN 17 H D Creatinine 1.26 Estim Creat Clear Calc 40.8 Estimated GFR 42 POC Glucose 148 H Random Glucose 90 D Fasting Glucose Lactic Acid Calcium 6.5 L Magnesium Iron TIBC % Saturation Unsat Iron Binding Ferritin Total Bilirubin Direct Bilirubin AST ALT Alkaline Phosphatase Lactate Dehydrogenase Troponin I High Sens B-Natriuretic Peptide Total Protein Albumin Lipase Vitamin B12 Folate Vancomycin Trough Random Vancomycin 13.2 L C. difficile Toxin A&B C. difficile Antigen C. difficile Interpret Ur L.pneumophila Ag Ur Strep pneumoniae Ag Blood Type Antibody Screen Crossmatch 05/19/20 05/19/20 05/19/20 09:31 11:14 16:32 WBC RBC Hgb Hct MCV MCH MCHC RDW Plt Count MPV Immature Gran % (Auto) Neut % (Auto) Lymph % (Auto) [place] % (Auto) Eos % (Auto) Baso % (Auto) Lymph # (Auto) [place] # (Auto) Eos # (Auto) Baso # (Auto) Abs Immat Gran (auto) Absolute Neuts (auto) Absolute Nucleated RBC Nucleated RBC % (auto) Neutrophils % (Manual) Band Neutrophils % Lymphocytes % (Manual) Monocytes % (Manual) Abs Neuts (Manual) Lymphocytes # (Manual) Monocytes # (Manual) Nucleated RBCs Platelet Estimate Plt Morphology Comment RBC Morphology Polychromasia Microcytosis Macrocytosis Spherocytes Tear Drop Cells Ovalocytes Mallard Cells Acanthocytes (Spur) Schistocytes Smear Tech's Comments Smear Path Review PT INR APTT Sodium Potassium Chloride Carbon Dioxide Anion Gap BUN Creatinine Estim Creat Clear Calc Estimated GFR POC Glucose 85 75 125 H Random Glucose Fasting Glucose Lactic Acid Calcium Magnesium Iron TIBC % Saturation Unsat Iron Binding Ferritin Total Bilirubin Direct Bilirubin AST ALT Alkaline Phosphatase Lactate Dehydrogenase Troponin I High Sens B-Natriuretic Peptide Total Protein Albumin Lipase Vitamin B12 Folate Vancomycin Trough Random Vancomycin C. difficile Toxin A&B C. difficile Antigen C. difficile Interpret Ur L.pneumophila Ag Ur Strep pneumoniae Ag Blood Type Antibody Screen Crossmatch 05/19/20 05/19/20 05/20/20 18:50 20:34 05:08 WBC RBC Hgb Hct MCV MCH MCHC RDW Plt Count MPV Immature Gran % (Auto) Neut % (Auto) Lymph % (Auto) [place] % (Auto) Eos % (Auto) Baso % (Auto) Lymph # (Auto) [place] # (Auto) Eos # (Auto) Baso # (Auto) Abs Immat Gran (auto) Absolute Neuts (auto) Absolute Nucleated RBC Nucleated RBC % (auto) Neutrophils % (Manual) Band Neutrophils % Lymphocytes % (Manual) Monocytes % (Manual) Abs Neuts (Manual) Lymphocytes # (Manual) Monocytes # (Manual) Nucleated RBCs Platelet Estimate Plt Morphology Comment RBC Morphology Polychromasia Microcytosis Macrocytosis Spherocytes Tear Drop Cells Ovalocytes Sury Cells Acanthocytes (Spur) Schistocytes Smear Tech's Comments Smear Path Review PT INR APTT Sodium 143 Potassium 4.3 D Chloride 102 Carbon Dioxide 28 Anion Gap 17 BUN 30 H D Creatinine 2.64 H Estim Creat Clear Calc 19.6 Estimated GFR 18 POC Glucose 126 H Random Glucose 130 H D Fasting Glucose Lactic Acid Calcium 6.4 L Magnesium Iron TIBC % Saturation Unsat Iron Binding Ferritin Total Bilirubin Direct Bilirubin AST ALT Alkaline Phosphatase Lactate Dehydrogenase 352 H Troponin I High Sens B-Natriuretic Peptide Total Protein Albumin Lipase Vitamin B12 Folate Vancomycin Trough Random Vancomycin C. difficile Toxin A&B Negative C. difficile Antigen Negative C. difficile Interpret SEE NOTE Ur L.pneumophila Ag Ur Strep pneumoniae Ag Blood Type Antibody Screen Crossmatch 05/20/20 05/20/20 05/20/20 05:08 07:08 07:29 WBC 10.2 RBC 2.58 L Hgb 8.1 L Hct 24.8 L MCV 96.1 MCH 31.4 MCHC 32.7 RDW 15.6 Plt Count 38 L D MPV Not Reportable Immature Gran % (Auto) 0.7 H Neut % (Auto) 82.3 H Lymph % (Auto) 8.6 L [place] % (Auto) 7.7 Eos % (Auto) 0.6 Baso % (Auto) 0.1 Lymph # (Auto) 0.9 L [place] # (Auto) 0.8 Eos # (Auto) 0.1 Baso # (Auto) 0.0 Abs Immat Gran (auto) 0.07 H Absolute Neuts (auto) 8.4 H Absolute Nucleated RBC 0.000 Nucleated RBC % (auto) 0.0 Neutrophils % (Manual) Band Neutrophils % Lymphocytes % (Manual) Monocytes % (Manual) Abs Neuts (Manual) Lymphocytes # (Manual) Monocytes # (Manual) Nucleated RBCs Platelet Estimate Plt Morphology Comment RBC Morphology Polychromasia Microcytosis Macrocytosis Spherocytes Tear Drop Cells Ovalocytes Sury Cells Acanthocytes (Spur) Schistocytes Smear Tech's Comments Smear Path Review PT INR APTT Sodium Potassium Chloride Carbon Dioxide Anion Gap BUN Creatinine Estim Creat Clear Calc Estimated GFR POC Glucose 119 H Random Glucose Fasting Glucose Lactic Acid Calcium Magnesium Iron TIBC % Saturation Unsat Iron Binding Ferritin Total Bilirubin Direct Bilirubin AST ALT Alkaline Phosphatase Lactate Dehydrogenase Troponin I High Sens B-Natriuretic Peptide Total Protein Albumin Lipase Vitamin B12 > 2000 H Folate 4.8 Vancomycin Trough Random Vancomycin C. difficile Toxin A&B C. difficile Antigen C. difficile Interpret Ur L.pneumophila Ag Ur Strep pneumoniae Ag Blood Type Antibody Screen Crossmatch 05/20/20 05/20/20 05/20/20 09:07 11:56 13:05 WBC Cancelled RBC Cancelled Hgb Cancelled Hct Cancelled MCV Cancelled MCH Cancelled MCHC Cancelled RDW Cancelled Plt Count Cancelled MPV Cancelled Immature Gran % (Auto) Neut % (Auto) Lymph % (Auto) [place] % (Auto) Eos % (Auto) Baso % (Auto) Lymph # (Auto) [place] # (Auto) Eos # (Auto) Baso # (Auto) Abs Immat Gran (auto) Absolute Neuts (auto) Absolute Nucleated RBC Cancelled Nucleated RBC % (auto) Cancelled Neutrophils % (Manual) Band Neutrophils % Lymphocytes % (Manual) Monocytes % (Manual) Abs Neuts (Manual) Lymphocytes # (Manual) Monocytes # (Manual) Nucleated RBCs Platelet Estimate Plt Morphology Comment RBC Morphology Polychromasia Microcytosis Macrocytosis Spherocytes Tear Drop Cells Ovalocytes Mallard Cells Acanthocytes (Spur) Schistocytes Smear Tech's Comments Smear Path Review PT INR APTT Sodium Potassium Chloride Carbon Dioxide Anion Gap BUN Creatinine Estim Creat Clear Calc Estimated GFR POC Glucose 117 H Random Glucose Fasting Glucose Lactic Acid Calcium Magnesium Iron TIBC % Saturation Unsat Iron Binding Ferritin Total Bilirubin Direct Bilirubin AST ALT Alkaline Phosphatase Lactate Dehydrogenase Troponin I High Sens B-Natriuretic Peptide Total Protein Albumin Lipase Vitamin B12 Folate Vancomycin Trough Random Vancomycin C. difficile Toxin A&B C. difficile Antigen C. difficile Interpret Ur L.pneumophila Ag Ur Strep pneumoniae Ag Blood Type O Positive Antibody Screen NEGATIVE Crossmatch 05/20/20 05/20/20 05/20/20 15:11 15:48 19:39 WBC 9.8 RBC 2.48 L Hgb 7.7 L Hct 24.0 L MCV 96.8 MCH 31.0 MCHC 32.1 RDW 15.7 Plt Count 59 L D MPV 13.0 H Immature Gran % (Auto) Neut % (Auto) Lymph % (Auto) [place] % (Auto) Eos % (Auto) Baso % (Auto) Lymph # (Auto) [place] # (Auto) Eos # (Auto) Baso # (Auto) Abs Immat Gran (auto) Absolute Neuts (auto) Absolute Nucleated RBC 0.000 Nucleated RBC % (auto) 0.0 Neutrophils % (Manual) Band Neutrophils % Lymphocytes % (Manual) Monocytes % (Manual) Abs Neuts (Manual) Lymphocytes # (Manual) Monocytes # (Manual) Nucleated RBCs Platelet Estimate Plt Morphology Comment RBC Morphology Polychromasia Microcytosis Macrocytosis Spherocytes Tear Drop Cells Ovalocytes Sury Cells Acanthocytes (Spur) Schistocytes Smear Tech's Comments Smear Path Review PT INR APTT Sodium Potassium Chloride Carbon Dioxide Anion Gap BUN Creatinine Estim Creat Clear Calc Estimated GFR POC Glucose 107 118 H Random Glucose Fasting Glucose Lactic Acid Calcium Magnesium Iron TIBC % Saturation Unsat Iron Binding Ferritin Total Bilirubin Direct Bilirubin AST ALT Alkaline Phosphatase Lactate Dehydrogenase Troponin I High Sens B-Natriuretic Peptide Total Protein Albumin Lipase Vitamin B12 Folate Vancomycin Trough Random Vancomycin C. difficile Toxin A&B C. difficile Antigen C. difficile Interpret Ur L.pneumophila Ag Ur Strep pneumoniae Ag Blood Type Antibody Screen Crossmatch 05/21/20 05/21/20 05/21/20 07:34 08:02 08:02 WBC 7.8 RBC 2.45 L Hgb 7.7 L Hct 23.9 L MCV 97.6 MCH 31.4 MCHC 32.2 RDW 15.7 Plt Count 46 L MPV 12.5 H Immature Gran % (Auto) 0.6 H Neut % (Auto) 80.9 H Lymph % (Auto) 10.1 L [place] % (Auto) 6.6 Eos % (Auto) 1.7 Baso % (Auto) 0.1 Lymph # (Auto) 0.8 L [place] # (Auto) 0.5 Eos # (Auto) 0.1 Baso # (Auto) 0.0 Abs Immat Gran (auto) 0.05 H Absolute Neuts (auto) 6.3 Absolute Nucleated RBC 0.000 Nucleated RBC % (auto) 0.0 Neutrophils % (Manual) Band Neutrophils % Lymphocytes % (Manual) Monocytes % (Manual) Abs Neuts (Manual) Lymphocytes # (Manual) Monocytes # (Manual) Nucleated RBCs Platelet Estimate Plt Morphology Comment RBC Morphology Polychromasia Microcytosis Macrocytosis Spherocytes Tear Drop Cells Ovalocytes Mallard Cells Acanthocytes (Spur) Schistocytes Smear Tech's Comments Smear Path Review PT INR APTT Sodium 142 Potassium 3.9 Chloride 102 Carbon Dioxide 30 H Anion Gap 14 BUN 35 H Creatinine 3.50 H Estim Creat Clear Calc 14.8 Estimated GFR 13 POC Glucose 107 Random Glucose TNP Fasting Glucose 119 H Lactic Acid Calcium 6.7 L Magnesium Iron TIBC % Saturation Unsat Iron Binding Ferritin Total Bilirubin Direct Bilirubin AST ALT Alkaline Phosphatase Lactate Dehydrogenase Troponin I High Sens B-Natriuretic Peptide Total Protein Albumin Lipase Vitamin B12 Folate Vancomycin Trough Random Vancomycin C. difficile Toxin A&B C. difficile Antigen C. difficile Interpret Ur L.pneumophila Ag Ur Strep pneumoniae Ag Blood Type Antibody Screen Crossmatch 05/21/20 05/21/20 05/21/20 08:02 11:11 16:53 WBC RBC Hgb Hct MCV MCH MCHC RDW Plt Count MPV Immature Gran % (Auto) Neut % (Auto) Lymph % (Auto) [place] % (Auto) Eos % (Auto) Baso % (Auto) Lymph # (Auto) [place] # (Auto) Eos # (Auto) Baso # (Auto) Abs Immat Gran (auto) Absolute Neuts (auto) Absolute Nucleated RBC Nucleated RBC % (auto) Neutrophils % (Manual) Band Neutrophils % Lymphocytes % (Manual) Monocytes % (Manual) Abs Neuts (Manual) Lymphocytes # (Manual) Monocytes # (Manual) Nucleated RBCs Platelet Estimate Plt Morphology Comment RBC Morphology Polychromasia Microcytosis Macrocytosis Spherocytes Tear Drop Cells Ovalocytes Mallard Cells Acanthocytes (Spur) Schistocytes Smear Tech's Comments Smear Path Review PT INR APTT Sodium Potassium Chloride Carbon Dioxide Anion Gap BUN Creatinine Estim Creat Clear Calc Estimated GFR POC Glucose 114 113 Random Glucose Fasting Glucose Lactic Acid Calcium Magnesium Iron TIBC % Saturation Unsat Iron Binding Ferritin Total Bilirubin Direct Bilirubin AST ALT Alkaline Phosphatase Lactate Dehydrogenase Troponin I High Sens B-Natriuretic Peptide Total Protein Albumin Lipase Vitamin B12 Folate Vancomycin Trough Random Vancomycin 31.0 H* C. difficile Toxin A&B C. difficile Antigen C. difficile Interpret Ur L.pneumophila Ag Ur Strep pneumoniae Ag Blood Type Antibody Screen Crossmatch 05/21/20 05/22/20 05/22/20 20:02 06:08 06:08 WBC 7.3 RBC 2.37 L Hgb 7.4 L Hct 23.3 L MCV 98.3 H MCH 31.2 MCHC 31.8 RDW 15.8 Plt Count 38 L MPV Not Reportable Immature Gran % (Auto) 0.7 H Neut % (Auto) 76.4 H Lymph % (Auto) 13.0 L [place] % (Auto) 8.3 Eos % (Auto) 1.5 Baso % (Auto) 0.1 Lymph # (Auto) 1.0 L [place] # (Auto) 0.6 Eos # (Auto) 0.1 Baso # (Auto) 0.0 Abs Immat Gran (auto) 0.05 H Absolute Neuts (auto) 5.6 Absolute Nucleated RBC 0.000 Nucleated RBC % (auto) 0.0 Neutrophils % (Manual) Band Neutrophils % Lymphocytes % (Manual) Monocytes % (Manual) Abs Neuts (Manual) Lymphocytes # (Manual) Monocytes # (Manual) Nucleated RBCs Platelet Estimate Plt Morphology Comment RBC Morphology Polychromasia Microcytosis Macrocytosis Spherocytes Tear Drop Cells Ovalocytes Mallard Cells Acanthocytes (Spur) Schistocytes Smear Tech's Comments VERIFIED Smear Path Review PT INR APTT Sodium 139 Potassium 3.8 Chloride 101 Carbon Dioxide 29 Anion Gap 13 BUN 18 H Creatinine 2.43 H Estim Creat Clear Calc 21.7 Estimated GFR 20 POC Glucose 120 H Random Glucose TNP Fasting Glucose 98 Lactic Acid Calcium 7.3 L D Magnesium Iron 52 TIBC 87 L % Saturation 60 H Unsat Iron Binding 35 Ferritin Total Bilirubin Direct Bilirubin AST ALT Alkaline Phosphatase Lactate Dehydrogenase Troponin I High Sens B-Natriuretic Peptide Total Protein Albumin Lipase Vitamin B12 Folate Vancomycin Trough Random Vancomycin C. difficile Toxin A&B C. difficile Antigen C. difficile Interpret Ur L.pneumophila Ag Ur Strep pneumoniae Ag Blood Type Antibody Screen Crossmatch 05/22/20 05/22/20 05/22/20 08:38 13:20 16:14 WBC RBC Hgb Hct MCV MCH MCHC RDW Plt Count MPV Immature Gran % (Auto) Neut % (Auto) Lymph % (Auto) [place] % (Auto) Eos % (Auto) Baso % (Auto) Lymph # (Auto) [place] # (Auto) Eos # (Auto) Baso # (Auto) Abs Immat Gran (auto) Absolute Neuts (auto) Absolute Nucleated RBC Nucleated RBC % (auto) Neutrophils % (Manual) Band Neutrophils % Lymphocytes % (Manual) Monocytes % (Manual) Abs Neuts (Manual) Lymphocytes # (Manual) Monocytes # (Manual) Nucleated RBCs Platelet Estimate Plt Morphology Comment RBC Morphology Polychromasia Microcytosis Macrocytosis Spherocytes Tear Drop Cells Ovalocytes Sury Cells Acanthocytes (Spur) Schistocytes Smear Tech's Comments Smear Path Review PT INR APTT Sodium Potassium Chloride Carbon Dioxide Anion Gap BUN Creatinine Estim Creat Clear Calc Estimated GFR POC Glucose 90 89 101 Random Glucose Fasting Glucose Lactic Acid Calcium Magnesium Iron TIBC % Saturation Unsat Iron Binding Ferritin Total Bilirubin Direct Bilirubin AST ALT Alkaline Phosphatase Lactate Dehydrogenase Troponin I High Sens B-Natriuretic Peptide Total Protein Albumin Lipase Vitamin B12 Folate Vancomycin Trough Random Vancomycin C. difficile Toxin A&B C. difficile Antigen C. difficile Interpret Ur L.pneumophila Ag Ur Strep pneumoniae Ag Blood Type Antibody Screen Crossmatch 05/22/20 05/23/20 05/23/20 19:42 05:44 05:44 WBC 7.3 RBC 2.31 L Hgb 7.3 L Hct 22.9 L MCV 99.1 H MCH 31.6 MCHC 31.9 RDW 15.6 Plt Count 51 L D MPV 13.1 H Immature Gran % (Auto) 0.8 H Neut % (Auto) 75.7 H Lymph % (Auto) 12.1 L [place] % (Auto) 9.6 Eos % (Auto) 1.7 Baso % (Auto) 0.1 Lymph # (Auto) 0.9 L [place] # (Auto) 0.7 Eos # (Auto) 0.1 Baso # (Auto) 0.0 Abs Immat Gran (auto) 0.06 H Absolute Neuts (auto) 5.5 Absolute Nucleated RBC 0.000 Nucleated RBC % (auto) 0.0 Neutrophils % (Manual) Band Neutrophils % Lymphocytes % (Manual) Monocytes % (Manual) Abs Neuts (Manual) Lymphocytes # (Manual) Monocytes # (Manual) Nucleated RBCs Platelet Estimate Plt Morphology Comment RBC Morphology Polychromasia Microcytosis Macrocytosis Spherocytes Tear Drop Cells Ovalocytes Mallard Cells Acanthocytes (Spur) Schistocytes Smear Tech's Comments VERIFIED Smear Path Review PT INR APTT Sodium 139 Potassium 4.5 Chloride 102 Carbon Dioxide 24 Anion Gap 18 BUN 24 H Creatinine 3.21 H Estim Creat Clear Calc 16.2 Estimated GFR 14 POC Glucose 124 H Random Glucose Cancelled Fasting Glucose 108 H Lactic Acid Calcium 7.0 L Magnesium Iron TIBC % Saturation Unsat Iron Binding Ferritin Total Bilirubin Direct Bilirubin AST ALT Alkaline Phosphatase Lactate Dehydrogenase Troponin I High Sens B-Natriuretic Peptide Total Protein Albumin Lipase Vitamin B12 Folate Vancomycin Trough Random Vancomycin C. difficile Toxin A&B C. difficile Antigen C. difficile Interpret Ur L.pneumophila Ag Ur Strep pneumoniae Ag Blood Type Antibody Screen Crossmatch 05/23/20 05/23/20 05/23/20 08:08 11:59 16:17 WBC RBC Hgb Hct MCV MCH MCHC RDW Plt Count MPV Immature Gran % (Auto) Neut % (Auto) Lymph % (Auto) [place] % (Auto) Eos % (Auto) Baso % (Auto) Lymph # (Auto) [place] # (Auto) Eos # (Auto) Baso # (Auto) Abs Immat Gran (auto) Absolute Neuts (auto) Absolute Nucleated RBC Nucleated RBC % (auto) Neutrophils % (Manual) Band Neutrophils % Lymphocytes % (Manual) Monocytes % (Manual) Abs Neuts (Manual) Lymphocytes # (Manual) Monocytes # (Manual) Nucleated RBCs Platelet Estimate Plt Morphology Comment RBC Morphology Polychromasia Microcytosis Macrocytosis Spherocytes Tear Drop Cells Ovalocytes Sury Cells Acanthocytes (Spur) Schistocytes Smear Tech's Comments Smear Path Review PT INR APTT Sodium Potassium Chloride Carbon Dioxide Anion Gap BUN Creatinine Estim Creat Clear Calc Estimated GFR POC Glucose 115 126 H 129 H Random Glucose Fasting Glucose Lactic Acid Calcium Magnesium Iron TIBC % Saturation Unsat Iron Binding Ferritin Total Bilirubin Direct Bilirubin AST ALT Alkaline Phosphatase Lactate Dehydrogenase Troponin I High Sens B-Natriuretic Peptide Total Protein Albumin Lipase Vitamin B12 Folate Vancomycin Trough Random Vancomycin C. difficile Toxin A&B C. difficile Antigen C. difficile Interpret Ur L.pneumophila Ag Ur Strep pneumoniae Ag Blood Type Antibody Screen Crossmatch 05/23/20 05/24/20 05/24/20 20:51 05:44 07:49 WBC RBC Hgb Hct MCV MCH MCHC RDW Plt Count MPV Immature Gran % (Auto) Neut % (Auto) Lymph % (Auto) [place] % (Auto) Eos % (Auto) Baso % (Auto) Lymph # (Auto) [place] # (Auto) Eos # (Auto) Baso # (Auto) Abs Immat Gran (auto) Absolute Neuts (auto) Absolute Nucleated RBC Nucleated RBC % (auto) Neutrophils % (Manual) Band Neutrophils % Lymphocytes % (Manual) Monocytes % (Manual) Abs Neuts (Manual) Lymphocytes # (Manual) Monocytes # (Manual) Nucleated RBCs Platelet Estimate Plt Morphology Comment RBC Morphology Polychromasia Microcytosis Macrocytosis Spherocytes Tear Drop Cells Ovalocytes Sury Cells Acanthocytes (Spur) Schistocytes Smear Tech's Comments Smear Path Review PT INR APTT Sodium 139 Potassium 4.2 Chloride 103 Carbon Dioxide 24 Anion Gap 16 BUN 24 H Creatinine 3.35 H Estim Creat Clear Calc 15.6 Estimated GFR 14 POC Glucose 116 H 110 Random Glucose 106 Fasting Glucose Lactic Acid Calcium 7.0 L Magnesium Iron TIBC % Saturation Unsat Iron Binding Ferritin Total Bilirubin Direct Bilirubin AST ALT Alkaline Phosphatase Lactate Dehydrogenase Troponin I High Sens B-Natriuretic Peptide Total Protein Albumin Lipase Vitamin B12 Folate Vancomycin Trough Random Vancomycin C. difficile Toxin A&B C. difficile Antigen C. difficile Interpret Ur L.pneumophila Ag Ur Strep pneumoniae Ag Blood Type Antibody Screen Crossmatch 05/24/20 05/24/20 05/24/20 11:17 16:27 20:39 WBC RBC Hgb Hct MCV MCH MCHC RDW Plt Count MPV Immature Gran % (Auto) Neut % (Auto) Lymph % (Auto) [place] % (Auto) Eos % (Auto) Baso % (Auto) Lymph # (Auto) [place] # (Auto) Eos # (Auto) Baso # (Auto) Abs Immat Gran (auto) Absolute Neuts (auto) Absolute Nucleated RBC Nucleated RBC % (auto) Neutrophils % (Manual) Band Neutrophils % Lymphocytes % (Manual) Monocytes % (Manual) Abs Neuts (Manual) Lymphocytes # (Manual) Monocytes # (Manual) Nucleated RBCs Platelet Estimate Plt Morphology Comment RBC Morphology Polychromasia Microcytosis Macrocytosis Spherocytes Tear Drop Cells Ovalocytes Mallard Cells Acanthocytes (Spur) Schistocytes Smear Tech's Comments Smear Path Review PT INR APTT Sodium Potassium Chloride Carbon Dioxide Anion Gap BUN Creatinine Estim Creat Clear Calc Estimated GFR POC Glucose 131 H 110 131 H Random Glucose Fasting Glucose Lactic Acid Calcium Magnesium Iron TIBC % Saturation Unsat Iron Binding Ferritin Total Bilirubin Direct Bilirubin AST ALT Alkaline Phosphatase Lactate Dehydrogenase Troponin I High Sens B-Natriuretic Peptide Total Protein Albumin Lipase Vitamin B12 Folate Vancomycin Trough Random Vancomycin C. difficile Toxin A&B C. difficile Antigen C. difficile Interpret Ur L.pneumophila Ag Ur Strep pneumoniae Ag Blood Type Antibody Screen Crossmatch 05/25/20 05/25/20 05/25/20 07:54 11:59 16:24 WBC RBC Hgb Hct MCV MCH MCHC RDW Plt Count MPV Immature Gran % (Auto) Neut % (Auto) Lymph % (Auto) [place] % (Auto) Eos % (Auto) Baso % (Auto) Lymph # (Auto) [place] # (Auto) Eos # (Auto) Baso # (Auto) Abs Immat Gran (auto) Absolute Neuts (auto) Absolute Nucleated RBC Nucleated RBC % (auto) Neutrophils % (Manual) Band Neutrophils % Lymphocytes % (Manual) Monocytes % (Manual) Abs Neuts (Manual) Lymphocytes # (Manual) Monocytes # (Manual) Nucleated RBCs Platelet Estimate Plt Morphology Comment RBC Morphology Polychromasia Microcytosis Macrocytosis Spherocytes Tear Drop Cells Ovalocytes Sury Cells Acanthocytes (Spur) Schistocytes Smear Tech's Comments Smear Path Review PT INR APTT Sodium Potassium Chloride Carbon Dioxide Anion Gap BUN Creatinine Estim Creat Clear Calc Estimated GFR POC Glucose 116 H 143 H 129 H Random Glucose Fasting Glucose Lactic Acid Calcium Magnesium Iron TIBC % Saturation Unsat Iron Binding Ferritin Total Bilirubin Direct Bilirubin AST ALT Alkaline Phosphatase Lactate Dehydrogenase Troponin I High Sens B-Natriuretic Peptide Total Protein Albumin Lipase Vitamin B12 Folate Vancomycin Trough Random Vancomycin C. difficile Toxin A&B C. difficile Antigen C. difficile Interpret Ur L.pneumophila Ag Ur Strep pneumoniae Ag Blood Type Antibody Screen Crossmatch 05/25/20 05/26/20 05/26/20 20:53 05:36 05:36 WBC 5.3 RBC 2.29 L Hgb 7.3 L Hct 22.1 L MCV 96.5 MCH 31.9 MCHC 33.0 RDW 15.9 Plt Count 30 L D MPV Not Reportable Immature Gran % (Auto) Neut % (Auto) Lymph % (Auto) [place] % (Auto) Eos % (Auto) Baso % (Auto) Lymph # (Auto) [place] # (Auto) Eos # (Auto) Baso # (Auto) Abs Immat Gran (auto) Absolute Neuts (auto) Absolute Nucleated RBC 0.000 Nucleated RBC % (auto) 0.0 Neutrophils % (Manual) Band Neutrophils % Lymphocytes % (Manual) Monocytes % (Manual) Abs Neuts (Manual) Lymphocytes # (Manual) Monocytes # (Manual) Nucleated RBCs Platelet Estimate Plt Morphology Comment RBC Morphology Polychromasia Microcytosis Macrocytosis Spherocytes Tear Drop Cells Ovalocytes Sury Cells Acanthocytes (Spur) Schistocytes Smear Tech's Comments Smear Path Review PT INR APTT Sodium 140 Potassium 4.3 Chloride 104 Carbon Dioxide 23 Anion Gap 17 BUN 36 H Creatinine 4.52 H* Estim Creat Clear Calc 11.6 Estimated GFR 10 POC Glucose 123 H Random Glucose 114 Fasting Glucose Lactic Acid Calcium 6.9 L Magnesium Iron TIBC % Saturation Unsat Iron Binding Ferritin Total Bilirubin Direct Bilirubin AST ALT Alkaline Phosphatase Lactate Dehydrogenase Troponin I High Sens B-Natriuretic Peptide Total Protein Albumin Lipase Vitamin B12 Folate Vancomycin Trough Random Vancomycin C. difficile Toxin A&B C. difficile Antigen C. difficile Interpret Ur L.pneumophila Ag Ur Strep pneumoniae Ag Blood Type Antibody Screen Crossmatch 05/26/20 05/26/20 05/26/20 08:05 11:18 16:29 WBC RBC Hgb Hct MCV MCH MCHC RDW Plt Count MPV Immature Gran % (Auto) Neut % (Auto) Lymph % (Auto) [place] % (Auto) Eos % (Auto) Baso % (Auto) Lymph # (Auto) [place] # (Auto) Eos # (Auto) Baso # (Auto) Abs Immat Gran (auto) Absolute Neuts (auto) Absolute Nucleated RBC Nucleated RBC % (auto) Neutrophils % (Manual) Band Neutrophils % Lymphocytes % (Manual) Monocytes % (Manual) Abs Neuts (Manual) Lymphocytes # (Manual) Monocytes # (Manual) Nucleated RBCs Platelet Estimate Plt Morphology Comment RBC Morphology Polychromasia Microcytosis Macrocytosis Spherocytes Tear Drop Cells Ovalocytes Mallard Cells Acanthocytes (Spur) Schistocytes Smear Tech's Comments Smear Path Review PT INR APTT Sodium Potassium Chloride Carbon Dioxide Anion Gap BUN Creatinine Estim Creat Clear Calc Estimated GFR POC Glucose 93 140 H 151 H Random Glucose Fasting Glucose Lactic Acid Calcium Magnesium Iron TIBC % Saturation Unsat Iron Binding Ferritin Total Bilirubin Direct Bilirubin AST ALT Alkaline Phosphatase Lactate Dehydrogenase Troponin I High Sens B-Natriuretic Peptide Total Protein Albumin Lipase Vitamin B12 Folate Vancomycin Trough Random Vancomycin C. difficile Toxin A&B C. difficile Antigen C. difficile Interpret Ur L.pneumophila Ag Ur Strep pneumoniae Ag Blood Type Antibody Screen Crossmatch 0105/27/20 05/27/20 19:48 06:17 07:55 WBC RBC Hgb Hct MCV MCH MCHC RDW Plt Count MPV Immature Gran % (Auto) Neut % (Auto) Lymph % (Auto) [place] % (Auto) Eos % (Auto) Baso % (Auto) Lymph # (Auto) [place] # (Auto) Eos # (Auto) Baso # (Auto) Abs Immat Gran (auto) Absolute Neuts (auto) Absolute Nucleated RBC Nucleated RBC % (auto) Neutrophils % (Manual) Band Neutrophils % Lymphocytes % (Manual) Monocytes % (Manual) Abs Neuts (Manual) Lymphocytes # (Manual) Monocytes # (Manual) Nucleated RBCs Platelet Estimate Plt Morphology Comment RBC Morphology Polychromasia Microcytosis Macrocytosis Spherocytes Tear Drop Cells Ovalocytes Sury Cells Acanthocytes (Spur) Schistocytes Smear Tech's Comments Smear Path Review PT INR APTT Sodium 142 Potassium 3.7 Chloride 101 Carbon Dioxide 30 H Anion Gap 15 BUN 20 H Creatinine 3.07 H Estim Creat Clear Calc 17.1 Estimated GFR 15 POC Glucose 140 H 171 H Random Glucose 185 H D Fasting Glucose Lactic Acid Calcium 6.9 L Magnesium Iron TIBC % Saturation Unsat Iron Binding Ferritin Total Bilirubin Direct Bilirubin AST ALT Alkaline Phosphatase Lactate Dehydrogenase Troponin I High Sens B-Natriuretic Peptide Total Protein Albumin Lipase Vitamin B12 Folate Vancomycin Trough Random Vancomycin C. difficile Toxin A&B C. difficile Antigen C. difficile Interpret Ur L.pneumophila Ag Ur Strep pneumoniae Ag Blood Type Antibody Screen Crossmatch 05/27/20 05/27/20 05/27/20 11:39 17:06 20:37 WBC RBC Hgb Hct MCV MCH MCHC RDW Plt Count MPV Immature Gran % (Auto) Neut % (Auto) Lymph % (Auto) [place] % (Auto) Eos % (Auto) Baso % (Auto) Lymph # (Auto) [place] # (Auto) Eos # (Auto) Baso # (Auto) Abs Immat Gran (auto) Absolute Neuts (auto) Absolute Nucleated RBC Nucleated RBC % (auto) Neutrophils % (Manual) Band Neutrophils % Lymphocytes % (Manual) Monocytes % (Manual) Abs Neuts (Manual) Lymphocytes # (Manual) Monocytes # (Manual) Nucleated RBCs Platelet Estimate Plt Morphology Comment RBC Morphology Polychromasia Microcytosis Macrocytosis Spherocytes Tear Drop Cells Ovalocytes Mallard Cells Acanthocytes (Spur) Schistocytes Smear Tech's Comments Smear Path Review PT INR APTT Sodium Potassium Chloride Carbon Dioxide Anion Gap BUN Creatinine Estim Creat Clear Calc Estimated GFR POC Glucose 109 110 110 Random Glucose Fasting Glucose Lactic Acid Calcium Magnesium Iron TIBC % Saturation Unsat Iron Binding Ferritin Total Bilirubin Direct Bilirubin AST ALT Alkaline Phosphatase Lactate Dehydrogenase Troponin I High Sens B-Natriuretic Peptide Total Protein Albumin Lipase Vitamin B12 Folate Vancomycin Trough Random Vancomycin C. difficile Toxin A&B C. difficile Antigen C. difficile Interpret Ur L.pneumophila Ag Ur Strep pneumoniae Ag Blood Type Antibody Screen Crossmatch 05/28/20 05/28/20 05/28/20 06:24 06:24 08:15 WBC 5.4 RBC 2.36 L Hgb 7.6 L Hct 23.2 L MCV 98.3 H MCH 32.2 MCHC 32.8 RDW 16.8 H Plt Count 28 L MPV Not Reportable Immature Gran % (Auto) Neut % (Auto) Lymph % (Auto) [place] % (Auto) Eos % (Auto) Baso % (Auto) Lymph # (Auto) [place] # (Auto) Eos # (Auto) Baso # (Auto) Abs Immat Gran (auto) Absolute Neuts (auto) Absolute Nucleated RBC 0.000 Nucleated RBC % (auto) 0.0 Neutrophils % (Manual) Band Neutrophils % Lymphocytes % (Manual) Monocytes % (Manual) Abs Neuts (Manual) Lymphocytes # (Manual) Monocytes # (Manual) Nucleated RBCs Platelet Estimate Plt Morphology Comment RBC Morphology Polychromasia Microcytosis Macrocytosis Spherocytes Tear Drop Cells Ovalocytes Sury Cells Acanthocytes (Spur) Schistocytes Smear Tech's Comments Smear Path Review PT INR APTT Sodium 139 Potassium 4.9 D Chloride 100 Carbon Dioxide 30 H Anion Gap 14 BUN 28 H Creatinine 3.91 H Estim Creat Clear Calc 13.3 Estimated GFR 11 POC Glucose 117 H Random Glucose 107 D Fasting Glucose Lactic Acid Calcium 7.2 L Magnesium Iron TIBC % Saturation Unsat Iron Binding Ferritin Total Bilirubin Direct Bilirubin AST ALT Alkaline Phosphatase Lactate Dehydrogenase Troponin I High Sens B-Natriuretic Peptide Total Protein Albumin Lipase Vitamin B12 Folate Vancomycin Trough Random Vancomycin C. difficile Toxin A&B C. difficile Antigen C. difficile Interpret Ur L.pneumophila Ag Ur Strep pneumoniae Ag Blood Type Antibody Screen Crossmatch 05/28/20 05/28/20 05/28/20 11:38 17:12 20:12 WBC RBC Hgb Hct MCV MCH MCHC RDW Plt Count MPV Immature Gran % (Auto) Neut % (Auto) Lymph % (Auto) [place] % (Auto) Eos % (Auto) Baso % (Auto) Lymph # (Auto) [place] # (Auto) Eos # (Auto) Baso # (Auto) Abs Immat Gran (auto) Absolute Neuts (auto) Absolute Nucleated RBC Nucleated RBC % (auto) Neutrophils % (Manual) Band Neutrophils % Lymphocytes % (Manual) Monocytes % (Manual) Abs Neuts (Manual) Lymphocytes # (Manual) Monocytes # (Manual) Nucleated RBCs Platelet Estimate Plt Morphology Comment RBC Morphology Polychromasia Microcytosis Macrocytosis Spherocytes Tear Drop Cells Ovalocytes Sury Cells Acanthocytes (Spur) Schistocytes Smear Tech's Comments Smear Path Review PT INR APTT Sodium Potassium Chloride Carbon Dioxide Anion Gap BUN Creatinine Estim Creat Clear Calc Estimated GFR POC Glucose 122 H 115 190 H Random Glucose Fasting Glucose Lactic Acid Calcium Magnesium Iron TIBC % Saturation Unsat Iron Binding Ferritin Total Bilirubin Direct Bilirubin AST ALT Alkaline Phosphatase Lactate Dehydrogenase Troponin I High Sens B-Natriuretic Peptide Total Protein Albumin Lipase Vitamin B12 Folate Vancomycin Trough Random Vancomycin C. difficile Toxin A&B C. difficile Antigen C. difficile Interpret Ur L.pneumophila Ag Ur Strep pneumoniae Ag Blood Type Antibody Screen Crossmatch 05/29/20 05/29/20 05/29/20 05:43 08:09 09:20 WBC 5.8 RBC 2.20 L Hgb 7.0 L* Hct 22.1 L MCV 100.5 H MCH 31.8 MCHC 31.7 RDW 16.7 H Plt Count 35 L MPV Not Reportable Immature Gran % (Auto) Neut % (Auto) Lymph % (Auto) [place] % (Auto) Eos % (Auto) Baso % (Auto) Lymph # (Auto) [place] # (Auto) Eos # (Auto) Baso # (Auto) Abs Immat Gran (auto) Absolute Neuts (auto) Absolute Nucleated RBC 0.000 Nucleated RBC % (auto) 0.0 Neutrophils % (Manual) Band Neutrophils % Lymphocytes % (Manual) Monocytes % (Manual) Abs Neuts (Manual) Lymphocytes # (Manual) Monocytes # (Manual) Nucleated RBCs Platelet Estimate Plt Morphology Comment RBC Morphology Polychromasia Microcytosis Macrocytosis Spherocytes Tear Drop Cells Ovalocytes Mallard Cells Acanthocytes (Spur) Schistocytes Smear Tech's Comments Smear Path Review PT INR APTT Sodium Potassium Chloride Carbon Dioxide Anion Gap BUN Creatinine Estim Creat Clear Calc Estimated GFR POC Glucose 139 H Random Glucose Fasting Glucose Lactic Acid Calcium Magnesium Iron TIBC % Saturation Unsat Iron Binding Ferritin Total Bilirubin Direct Bilirubin AST ALT Alkaline Phosphatase Lactate Dehydrogenase Troponin I High Sens B-Natriuretic Peptide Total Protein Albumin Lipase Vitamin B12 Folate Vancomycin Trough Random Vancomycin C. difficile Toxin A&B C. difficile Antigen C. difficile Interpret Ur L.pneumophila Ag Ur Strep pneumoniae Ag Blood Type O Positive Antibody Screen NEGATIVE Crossmatch See Detail 05/29/20 05/29/20 05/29/20 11:36 16:24 20:18 WBC RBC Hgb Hct MCV MCH MCHC RDW Plt Count MPV Immature Gran % (Auto) Neut % (Auto) Lymph % (Auto) [place] % (Auto) Eos % (Auto) Baso % (Auto) Lymph # (Auto) [place] # (Auto) Eos # (Auto) Baso # (Auto) Abs Immat Gran (auto) Absolute Neuts (auto) Absolute Nucleated RBC Nucleated RBC % (auto) Neutrophils % (Manual) Band Neutrophils % Lymphocytes % (Manual) Monocytes % (Manual) Abs Neuts (Manual) Lymphocytes # (Manual) Monocytes # (Manual) Nucleated RBCs Platelet Estimate Plt Morphology Comment RBC Morphology Polychromasia Microcytosis Macrocytosis Spherocytes Tear Drop Cells Ovalocytes Sury Cells Acanthocytes (Spur) Schistocytes Smear Tech's Comments Smear Path Review PT INR APTT Sodium Potassium Chloride Carbon Dioxide Anion Gap BUN Creatinine Estim Creat Clear Calc Estimated GFR POC Glucose 167 H 88 138 H Random Glucose Fasting Glucose Lactic Acid Calcium Magnesium Iron TIBC % Saturation Unsat Iron Binding Ferritin Total Bilirubin Direct Bilirubin AST ALT Alkaline Phosphatase Lactate Dehydrogenase Troponin I High Sens B-Natriuretic Peptide Total Protein Albumin Lipase Vitamin B12 Folate Vancomycin Trough Random Vancomycin C. difficile Toxin A&B C. difficile Antigen C. difficile Interpret Ur L.pneumophila Ag Ur Strep pneumoniae Ag Blood Type Antibody Screen Crossmatch 05/30/20 05/30/20 05/30/20 05:40 05:40 08:00 WBC 5.5 RBC 2.77 L D Hgb 8.5 L D Hct 27.1 L D MCV 97.8 MCH 30.7 MCHC 31.4 RDW 16.9 H Plt Count 37 L MPV Not Reportable Immature Gran % (Auto) Neut % (Auto) Lymph % (Auto) [place] % (Auto) Eos % (Auto) Baso % (Auto) Lymph # (Auto) [place] # (Auto) Eos # (Auto) Baso # (Auto) Abs Immat Gran (auto) Absolute Neuts (auto) Absolute Nucleated RBC 0.000 Nucleated RBC % (auto) 0.0 Neutrophils % (Manual) Band Neutrophils % Lymphocytes % (Manual) Monocytes % (Manual) Abs Neuts (Manual) Lymphocytes # (Manual) Monocytes # (Manual) Nucleated RBCs Platelet Estimate Plt Morphology Comment RBC Morphology Polychromasia Microcytosis Macrocytosis Spherocytes Tear Drop Cells Ovalocytes Mallard Cells Acanthocytes (Spur) Schistocytes Smear Tech's Comments Smear Path Review PT INR APTT Sodium 139 Potassium 4.2 Chloride 101 Carbon Dioxide 31 H Anion Gap 11 L BUN 32 H Creatinine 3.44 H Estim Creat Clear Calc 15.2 Estimated GFR 13 POC Glucose 98 Random Glucose 117 H Fasting Glucose Lactic Acid Calcium 7.7 L D Magnesium Iron TIBC % Saturation Unsat Iron Binding Ferritin Total Bilirubin Direct Bilirubin AST ALT Alkaline Phosphatase Lactate Dehydrogenase Troponin I High Sens B-Natriuretic Peptide Total Protein Albumin Lipase Vitamin B12 Folate Vancomycin Trough Random Vancomycin C. difficile Toxin A&B C. difficile Antigen C. difficile Interpret Ur L.pneumophila Ag Ur Strep pneumoniae Ag Blood Type Antibody Screen Crossmatch 05/30/20 12:37 WBC RBC Hgb Hct MCV MCH MCHC RDW Plt Count MPV Immature Gran % (Auto) Neut % (Auto) Lymph % (Auto) [place] % (Auto) Eos % (Auto) Baso % (Auto) Lymph # (Auto) [place] # (Auto) Eos # (Auto) Baso # (Auto) Abs Immat Gran (auto) Absolute Neuts (auto) Absolute Nucleated RBC Nucleated RBC % (auto) Neutrophils % (Manual) Band Neutrophils % Lymphocytes % (Manual) Monocytes % (Manual) Abs Neuts (Manual) Lymphocytes # (Manual) Monocytes # (Manual) Nucleated RBCs Platelet Estimate Plt Morphology Comment RBC Morphology Polychromasia Microcytosis Macrocytosis Spherocytes Tear Drop Cells Ovalocytes Sury Cells Acanthocytes (Spur) Schistocytes Smear Tech's Comments Smear Path Review PT INR APTT Sodium Potassium Chloride Carbon Dioxide Anion Gap BUN Creatinine Estim Creat Clear Calc Estimated GFR POC Glucose 95 Random Glucose Fasting Glucose Lactic Acid Calcium Magnesium Iron TIBC % Saturation Unsat Iron Binding Ferritin Total Bilirubin Direct Bilirubin AST ALT Alkaline Phosphatase Lactate Dehydrogenase Troponin I High Sens B-Natriuretic Peptide Total Protein Albumin Lipase Vitamin B12 Folate Vancomycin Trough Random Vancomycin C. difficile Toxin A&B C. difficile Antigen C. difficile Interpret Ur L.pneumophila Ag Ur Strep pneumoniae Ag Blood Type Antibody Screen Crossmatch Discharge Plan Discharge Patient Disposition: Home, Self-Care Referrals: Jennifer Loya MD [Physician] - 1 Week (TELE VISIT 110:30. WILL CALL YOU TO DISCUSS YOUR HOSPITAL STAY.) Discharge Medications: Continued atorvastatin 40 mg tablet 40 mg PO BEDTIME RF: 0 fluoxetine 20 mg/5 mL (4 mg/mL) solution 5 ml PO DAILY RF: 0 bumetanide 2 mg tablet 4 mg PO SUTUTHSA@0800,1700 RF: 0 isosorbide mononitrate 60 mg tablet extended release 24 hr 60 mg PO QAM RF: 0 metoprolol tartrate 25 mg tablet 25 mg PO BID RF: 0 cholecalciferol (vitamin D3) 50 mcg (2,000 unit) tablet 50 mcg PO QAM RF: 0 quetiapine 25 mg tablet 25 mg PO BEDTIME PRN (Reason: Insomnia) RF: 0 lorazepam 0.5 mg tablet 0.5 mg PO DAILY PRN (Reason: Agitation) RF: 0 Anoro Ellipta 62.5-25 mcg/actuation blister with device 1 puff inhalation DAILY RF: 0 Held clopidogrel 75 mg tablet 75 mg PO BEDTIME RF: 0 Hold Instructions: Resume on 06/08/20. Discharge Orders: Discharge Order (Routine); Ordered 05/30/20 Ordered By: Bernie Ricks Diet: advance to usual diet Activity on Discharge: As tolerated Other Ambulatory Orders: Complete Blood Count no Diff (Routine) Timeframe: [id number] Facility: [facility] - Location: [address] [place] [address]Lab Ordered By: Bernie Ricks Visit Report Forms: Patient Portal Discharge page Care Plan Goals: read below Health Concerns: Read below Plan of Treatment: Admitted to the hospital for treatment of COVID-19 infection with low oxygen levels. Responded well to treatment with steroids and antibiotics. Continue to require oxygen at this point. Your noted to have bacteria growing in your blood called Staph aureus. The source was dialysis catheter which was removed and then changed with the new catheter. Your treated with IV antibiotics for total of 22 days. You still have 20 more days to continue treatment of Ancef with dialysis. Your noted to have low platelets count which was evaluated by blood specialist. You received blood transfusion for low blood readings. Lab test to be followed. Plan Continue antibiotics with dialysis Will get back to regular dialysis schedule Plavix (Clopidogrel) was held during the hospital stay for low platelets count and risk of bleeding. continue to hold it until PLT improves >50,000. to follow with PCP Will repeat blood test next week
== END 2020-05-30 15:03 | disposition home or self-care (01) | DRG 981 ==
LOC: HO.ED 16:49 → HO.IMC 05-05 00:18 → HO.ICU 05-07 16:35 → HO.IMC 05-07 17:36
PROVIDERS: Emergency Medicine; Family Medicine; Hospitalist; Internal Medicine; Radiology Diagnostic Radiology; Admitting Provider Internal Medicine; Emergency Provider Emergency Medicine; Visit Provider Student in an Organized Health Care Education/Training Program
PROC: 02HV33Z Insertion of Infusion Device into Superior Vena Cava, Percutaneous Approach (ICD-10-PCS; principal; 2020-05-22 13:00)
DX: U07.1 COVID-19 (principal); E11.00 Type 2 diabetes mellitus with hyperosmolarity without nonketotic hyperglycemic-hyperosmolar coma (NKHHC); J96.21 Acute and chronic respiratory failure with hypoxia; N18.6 End stage renal disease; I50.33 Acute on chronic diastolic (congestive) heart failure; J12.89 Other viral pneumonia; T82.898A Other specified complication of vascular prosthetic devices, implants and grafts, initial encounter; J44.1 Chronic obstructive pulmonary disease with (acute) exacerbation; I13.2 Hypertensive heart and chronic kidney disease with heart failure and with stage 5 chronic kidney disease, or end stage renal disease; F05 Delirium due to known physiological condition; R78.81 Bacteremia; E11.649 Type 2 diabetes mellitus with hypoglycemia without coma; E11.22 Type 2 diabetes mellitus with diabetic chronic kidney disease; B95.61 Methicillin susceptible Staphylococcus aureus infection as the cause of diseases classified elsewhere; D69.6 Thrombocytopenia, unspecified; D63.1 Anemia in chronic kidney disease; I95.9 Hypotension, unspecified; I25.10 Atherosclerotic heart disease of native coronary artery without angina pectoris; Z88.0 Allergy status to penicillin; Z88.6 Allergy status to analgesic agent; Z79.02 Long term (current) use of antithrombotics/antiplatelets; Z79.899 Other long term (current) drug therapy
CPT/HCPCS: 36415; 36556; 36558; 36589; 71045; 76937; 80048; 80076; 80202; 82607; 82728; 82746; 82947; 83540; 83605; 83615; 83690; 83735; 83880; 84484; 85007; 85025; 85027; 85060; 85610; 85730; 86850; 86900; 86901; 86920; 87040; 87077; 87147; 87186; 87324; 87449; 87899; 90999; 93005; 93306; 94640; 96365; 96375; 96376; 97162; 99152; 99153; 99225; 99232; 99285; C1750; C1752; C1769; J0171; J0330; J0461; J0610; J0690; J0696; J1100; J1335; J1940; J2060; J2370; J2405; J3370; P9016; P9035; P9037

== ENCOUNTER 2020-06-11 12:13 | Inpatient (IN) | payer MEDICARE, MEDICAID, SELFPAY ==
[2020-06-11 12:25] VITALS: BP 137/74; PULSE 85; RESP 18; TEMP 36.7; O2SAT 100; BMI 32.0
--- NOTE | 2020-06-11 12:58 | ED_ITS ---
HPI - Abdominal Pain General Chief Complaint: Abdominal Pain Stated Complaint: BILATERAL FLANK PAIN Time Seen by Provider: 06/11/20 12:55 Source: EMS Mode of arrival: EMS History of Present Illness HPI narrative: 69 yo F with PMHx of obesity, diabetes, ESRD on dialysis via Permcath, COPD, and CHF, on 2L oxygen at home, recently discharged from our facility with acute hypoxic respiratory failure due to COVID-19 and Staph aureus bacteremia from HD cath which was removed on Ancef, presenting to the ED via EMS from dialysis, only tolerated 45 minutes of her dialysis today due to bilateral flank pain which started last night. Patient reports pain is constant from last night radiating around to abdomen. Also reports acute on chronic worsening SOB. Also reports nausea and diarrhea. Denies fever, chest pain, vomiting, constipation MD elicited complaint: flank pain Related Data Home Medications Medication Instructions Recorded Confirmed atorvastatin 40 mg PO BEDTIME 04/24/20 06/11/20 bumetanide 4 mg PO SUTUTHSA@0800,1700 04/24/20 06/11/20 cholecalciferol (vitamin D3) 50 mcg PO QAM 04/24/20 06/11/20 clopidogrel 75 mg PO BEDTIME 04/24/20 06/11/20 fluoxetine 5 ml PO DAILY 04/24/20 06/11/20 isosorbide mononitrate 60 mg PO QAM 04/24/20 06/11/20 metoprolol tartrate 25 mg PO BID 04/24/20 06/11/20 Anoro Ellipta 1 puff INHALATION DAILY 05/04/20 06/11/20 lorazepam 0.5 mg PO DAILY PRN 05/04/20 06/11/20 quetiapine 25 mg PO BEDTIME PRN 05/04/20 06/11/20 Allergies Allergy/AdvReac Type Severity Reaction Status Date / Time Penicillins Allergy Severe Anaphylaxis, Verified 05/13/20 12:33 hives acetaminophen [From TYLENOL] Allergy Unknown Unknown Verified 05/13/20 12:36 aspirin [ASPIRIN] Allergy Unknown rash, Verified 05/13/20 12:33 stomach upset diazepam [From VALIUM] Allergy Unknown RESP Verified 04/24/20 20:22 FAILURE penicillin V Allergy Unknown edema Verified 11/21/19 00:00 metformin [Metformin] AdvReac Mild DIARRHEA Verified 04/24/20 20:22 Review of Systems Review of Systems Constitutional: No Weight loss, No Fever, No Chills, No Night Sweats Cardiovascular: No Chest Pain, + SOB, No Dyspnea on Exertion, No Orthopnea, +chronic Edema >LLE Respiratory: +chronic Cough, No Sputum, No Smoke Exposure, No Dyspnea Gastrointestinal: +Nausea, No Vomiting, + Diarrhea, No Constipation, +Abdominal pain Genitourinary: No irregular bleeding, No Dysuria, No Urinary Frequency, No Hematuria, +Flank Pain, No Urinary Flow Changes, No Hesitancy Musculoskeletal: No joint pain, No Myalgias, No Joint Swelling Skin: No Skin Lesions, No rash Neuro: No Weakness, No Numbness, No Paresthesias, No Headache Yes all other systems are reviewed and are negative Physical Exam Vital Signs: Vital Signs: Last Vital Signs Temp 98.0 F 06/11/20 12:25 Pulse 86 06/11/20 14:57 Resp 18 06/11/20 12:25 BP 137/74 06/11/20 12:25 Pulse Ox 100 06/11/20 12:25 Body Mass Index 32.0 Const: General: cooperative Orientation/consciousness: patient oriented x3 Limitations: no limitations HENMT: Head: Yes normal to inspection Ears: hearing grossly normal bilaterally General nose exam: Normal external nose present Face and sinus: Yes normal facial exam Eyes: General: appearance normal, both eyes and all related structures EOM: EOMs intact bilaterally Neck: Neck: Yes normal visual inspection and Yes no meningeal signs Resp: Other: Coarse lung sounds throughout Effort & Inspection: normal respiratory effort Auscultation: crackles diffuse Cardio: Rate: regular rate Heart sounds: S1 normal heart sound present and S2 normal heart sound present GI: Inspection: Yes normal to inspection Palpation (GI): Soft to palpation, Tenderness to palpation present (GI) (diffusely), no guarding and not rigid : General: Yes CVA tenderness bilateral Back/Spine/Pelvis: Back: CVA tenderness Skin: Rashes: no rashes Wounds: no wounds Neuro: General: patient oriented x3 and no meningeal signs Extrem: Other: +LLE edema >R (chronic per patient) Course Course Course Narrative: * 1424- H&H at patient's baseline. Creatinine chronically elevated. BNP is chronically elevated worsen priors at 1491. Troponin 24.8 likely from renal dysfunction XR chest 1V IMPRESSION: Patchy opacities throughout both lungs with interstitial prominence. This may represent edema versus infectious process >> likely CHF. Low concern for severe sepsis. Lactic/blood cultures added as well as dry CT chest for further evaluation 1451- CT abdomen pelvis wo con IMPRESSION: Airspace opacities with associated groundglass opacities at the lung bases, increased from prior. This is concerning for infectious process. Small volume ascites is new from prior. Otherwise no acute abnormality in the abdomen or pelvis >>ID consulted for Abx and will initiate Levaquin * 1610- IV magnesium repletion, albumin, and Bumex ordered. Plan for admission MDM - Abdominal Pain MDM Narrative Medical decision making narrative: 69 yo F with PMHx of obesity, diabetes, ESRD on dialysis via Permcath, COPD, and CHF, on 2L oxygen at home, recently discharged from our facility with acute hypoxic respiratory failure due to COVID-19 and Staph aureus bacteremia from HD cath which was removed on Ancef, presenting to the ED via EMS from dialysis, only tolerated 45 minutes of her dialysis today due to bilateral flank pain. On exam NAD/nontoxic, 100% on NC w hich is patient's baseline, coarse lung sounds throughout, abdomen soft diffusely tender and bilateral CVAT. Concern for intra-abdominal infection vs UTI/renal stone/pyelo vs acute on chronic respiratory failure/COPD or CHF. Plan: EKG, labs, UA, CXR, CT AP, DuoNeb, reassess Medical Records Attestation: I reviewed the patient's medical records. Lab Data Attestation: I reviewed the patient's lab results. Result diagrams: 06/11/20 13:30 06/11/20 13:29 Labs: Lab Results 06/11/20 06/11/20 06/11/20 Range/Units 13:22 13:28 13:28 WBC (4.8-10.8) X10*3/uL RBC (4.20-5.50) X10*6/uL Hgb (12.0-16.0) g/dl Hct (37-47) % MCV (80-98) fL MCH (27.0-33.0) pg MCHC (31.0-35.0) g/dl RDW (11.0-16.0) % Plt Count (160-400) X10*3/uL MPV (9.4-12.3) fL Immature Gran % (Auto) (0.0-0.4) % Neut % (Auto) (45-73) % Lymph % (Auto) (20-40) % Parker % (Auto) (2-11) % Eos % (Auto) (0-4) % Baso % (Auto) (0-2) % Lymph # (Auto) (1.2-4.9) X10*3/uL Parker # (Auto) (0.1-1.2) X10*3/uL Eos # (Auto) (0.0-0.4) X10*3/uL Baso # (Auto) (0.0-0.2) X10*3/uL Abs Immat Gran (auto) (0.00-0.03) X10*3/uL Absolute Neuts (auto) (2.0-8.3) X10*3/uL Absolute Nucleated RBC (0.0-0.012) X10*3/uL Nucleated RBC % (auto) (0.0-0.2) /100WBC PT (10.8-13.0) SEC INR (0.9-1.1) APTT (24.1-38.0) SEC Sodium (135-145) mmol/L Potassium (3.3-5.1) mmol/l Chloride (96-108) mmol/L Carbon Dioxide (22-29) mmol/L Anion Gap (12-20) BUN (9-16) mg/dL Creatinine (0.5-1.4) mg/dL Estim Creat Clear Calc Estimated GFR Random Glucose (60-115) mg/dL Calcium (8.4-10.2) mg/dL Magnesium (1.6-2.6) mg/dL Total Bilirubin (0.0-1.0) mg/dL Direct Bilirubin (0.0-0.5) mg/dL AST (5-31) U/L ALT (0-31) U/L Alkaline Phosphatase (39-117) U/L Troponin I High Sens (<3.5-17.0) ng/L B-Natriuretic Peptide 1491 H (<100) pg/mL Total Protein (6.5-8.0) g/dL Albumin (3.5-5.0) g/dL Lipase Cancelled COVID-19 ([facility]) Negative (Negative) COVID-19 Clin Com See Note 06/11/20 06/11/20 06/11/20 Range/Units 13:29 13:29 13:29 WBC (4.8-10.8) X10*3/uL RBC (4.20-5.50) X10*6/uL Hgb (12.0-16.0) g/dl Hct (37-47) % MCV (80-98) fL MCH (27.0-33.0) pg MCHC (31.0-35.0) g/dl RDW (11.0-16.0) % Plt Count (160-400) X10*3/uL MPV (9.4-12.3) fL Immature Gran % (Auto) (0.0-0.4) % Neut % (Auto) (45-73) % Lymph % (Auto) (20-40) % Parker % (Auto) (2-11) % Eos % (Auto) (0-4) % Baso % (Auto) (0-2) % Lymph # (Auto) (1.2-4.9) X10*3/uL Parker # (Auto) (0.1-1.2) X10*3/uL Eos # (Auto) (0.0-0.4) X10*3/uL Baso # (Auto) (0.0-0.2) X10*3/uL Abs Immat Gran (auto) (0.00-0.03) X10*3/uL Absolute Neuts (auto) (2.0-8.3) X10*3/uL Absolute Nucleated RBC (0.0-0.012) X10*3/uL Nucleated RBC % (auto) (0.0-0.2) /100WBC PT 12.3 (10.8-13.0) SEC INR 1.0 (0.9-1.1) APTT 34.7 (24.1-38.0) SEC Sodium 138 (135-145) mmol/L Potassium 4.1 (3.3-5.1) mmol/l Chloride 102 (96-108) mmol/L Carbon Dioxide 29 (22-29) mmol/L Anion Gap 11 L (12-20) BUN 17 H (9-16) mg/dL Creatinine 2.72 H (0.5-1.4) mg/dL Estim Creat Clear Calc 18.8 Estimated GFR 17 Random Glucose 172 H D (60-115) mg/dL Calcium 7.0 L D (8.4-10.2) mg/dL Magnesium 1.6 (1.6-2.6) mg/dL Total Bilirubin 0.6 (0.0-1.0) mg/dL Direct Bilirubin 0.2 (0.0-0.5) mg/dL AST 45 H (5-31) U/L ALT < 6 (0-31) U/L Alkaline Phosphatase 459 H D (39-117) U/L Troponin I High Sens 24.8 H (<3.5-17.0) ng/L B-Natriuretic Peptide (<100) pg/mL Total Protein 6.6 (6.5-8.0) g/dL Albumin 1.6 L D (3.5-5.0) g/dL Lipase 105 H COVID-19 ([facility]) (Negative) COVID-19 Clin Com 06/11/20 Range/Units 13:30 WBC 9.5 (4.8-10.8) X10*3/uL RBC 2.55 L (4.20-5.50) X10*6/uL Hgb 8.1 L (12.0-16.0) g/dl Hct 25.4 L (37-47) % MCV 99.6 H (80-98) fL MCH 31.8 (27.0-33.0) pg MCHC 31.9 (31.0-35.0) g/dl RDW 19.7 H (11.0-16.0) % Plt Count 123 L D (160-400) X10*3/uL MPV 12.3 (9.4-12.3) fL Immature Gran % (Auto) 3.8 H (0.0-0.4) % Neut % (Auto) 62.1 (45-73) % Lymph % (Auto) 17.3 L (20-40) % Parker % (Auto) 14.6 H (2-11) % Eos % (Auto) 1.5 (0-4) % Baso % (Auto) 0.7 (0-2) % Lymph # (Auto) 1.7 (1.2-4.9) X10*3/uL Parker # (Auto) 1.4 H (0.1-1.2) X10*3/uL Eos # (Auto) 0.1 (0.0-0.4) X10*3/uL Baso # (Auto) 0.1 (0.0-0.2) X10*3/uL Abs Immat Gran (auto) 0.36 H (0.00-0.03) X10*3/uL Absolute Neuts (auto) 5.9 (2.0-8.3) X10*3/uL Absolute Nucleated RBC 0.020 H (0.0-0.012) X10*3/uL Nucleated RBC % (auto) 0.2 (0.0-0.2) /100WBC PT (10.8-13.0) SEC INR (0.9-1.1) APTT (24.1-38.0) SEC Sodium (135-145) mmol/L Potassium (3.3-5.1) mmol/l Chloride (96-108) mmol/L Carbon Dioxide (22-29) mmol/L Anion Gap (12-20) BUN (9-16) mg/dL Creatinine (0.5-1.4) mg/dL Estim Creat Clear Calc Estimated GFR Random Glucose (60-115) mg/dL Calcium (8.4-10.2) mg/dL Magnesium (1.6-2.6) mg/dL Total Bilirubin (0.0-1.0) mg/dL Direct Bilirubin (0.0-0.5) mg/dL AST (5-31) U/L ALT (0-31) U/L Alkaline Phosphatase (39-117) U/L Troponin I High Sens (<3.5-17.0) ng/L B-Natriuretic Peptide (<100) pg/mL Total Protein (6.5-8.0) g/dL Albumin (3.5-5.0) g/dL Lipase COVID-19 ([facility]) (Negative) COVID-19 Clin Com ECG Data Attestation: I personally reviewed and interpreted this ECG as follows: ECG interpretation date: 06/11/20 ECG interpretation time: 13:19 Prior ECG tracings: available for review Interpretation: EKG normal sinus rhythm with a rate of 83. T-wave inversions in leads I & aVL unchanged from priors Discharge Plan Discharge Clinical Impression: Pneumonia, Congestive heart failure Patient Disposition: Admitted As Inpatient Prescriptions: No Action atorvastatin 40 mg tablet 40 mg PO BEDTIME RF: 0 fluoxetine 20 mg/5 mL (4 mg/mL) solution 5 ml PO DAILY RF: 0 bumetanide 2 mg tablet 4 mg PO SUTUTHSA@0800,1700 RF: 0 clopidogrel 75 mg tablet 75 mg PO BEDTIME RF: 0 Hold Instructions: Resume on 06/08/20. isosorbide mononitrate 60 mg tablet extended release 24 hr 60 mg PO QAM RF: 0 metoprolol tartrate 25 mg tablet 25 mg PO BID RF: 0 cholecalciferol (vitamin D3) 50 mcg (2,000 unit) tablet 50 mcg PO QAM RF: 0 quetiapine 25 mg tablet 25 mg PO BEDTIME PRN (Reason: Insomnia) RF: 0 lorazepam 0.5 mg tablet 0.5 mg PO DAILY PRN (Reason: Agitation) RF: 0 Anoro Ellipta 62.5-25 mcg/actuation blister with device 1 puff inhalation DAILY RF: 0 PMFSH Past Medical History Attestation statement: The following information was validated with the patient. Medical History Bacteremia due to Staphylococcus Constipation COPD (chronic obstructive pulmonary disease) Diabetes Diastolic dysfunction Diverticulitis Dyspnea Social History Social History Household Members: Family Housing: Apartment Alcohol intake: never Smoking Status: Smoker, status unknown Smoked in Last 30 Days: No Use of substances other than those prescribed or required for medical reasons: No Advance Directives: Yes Advance Directives Information Provided: Yes Advance Directives on File: No service: No Current occupational status: disabled
--- NOTE | 2020-06-11 13:09 | ECG_ITS ---
Test Reason : ABD PAIN Blood Pressure : / mmHG Vent. Rate : 083 BPM Atrial Rate : 083 BPM P-R Int : 120 ms QRS Dur : 086 ms QT Int : 374 ms P-R-T Axes : 042 020 167 degrees QTc Int : 439 ms Sinus rhythm with Premature supraventricular complexes ST & T wave abnormality, consider anterolateral ischemia Abnormal ECG When compared with ECG of 09-MAY-2020 23:19, Premature supraventricular complexes are now Present Referred By: June Argueta Electronically Signed By:Bryon Rodriges
--- NOTE | 2020-06-11 13:09 | CT_ITS ---
EXAMINATION: CT ABDOMEN AND PELVIS WITHOUT CONTRAST CLINICAL INFORMATION: Diffuse abdominal pain. Bilateral flank pain. COMPARISON: 02/29/2020 TECHNIQUE: Multidetector volumetric imaging was performed from the superior aspect of the liver through the pubic symphysis. Sagittal and coronal reformatted images were obtained on the technologist's workstation. This CT examination was performed using dose optimization techniques as appropriate, variously including the following: *Automated exposure control *Adjustment of mA and/or kV according to patient size (this includes techniques or standardized protocols for targeted exams where dose is matched to indication/reason for exam; i.e. extremities or head) *Use of iterative reconstruction technique DLP: 1219 mGy-cm FINDINGS: LUNG BASES: There are patchy airspace opacities seen at both lung bases, left greater than right. Associated groundglass appearance. This is increased from the previous study. No significant pleural effusion. LIVER, GALLBLADDER, AND BILIARY TREE: The liver is normal in size, shape, and attenuation. No focal hepatic lesion or biliary ductal dilatation is present. Cholecystectomy. Small volume of ascites. PANCREAS: Unremarkable. SPLEEN: Unremarkable. ADRENAL GLANDS: Unremarkable. KIDNEYS AND URETERS: The kidneys are normal in size, shape, and attenuation. No hydronephrosis, hydroureter, or calculi seen. No perinephric stranding. BLADDER: Unremarkable. GASTROINTESTINAL TRACT: Gastrostomy tube in the stomach. The stomach is otherwise unremarkable. Normal caliber small bowel. No obstruction. Normal appendix. No colonic wall thickening or acute inflammatory change. No free air. ABDOMINAL WALL: No significant hernia is appreciated. LYMPH NODES: Normal. VASCULAR: Normal caliber aorta with moderate atherosclerotic calcification. Varices seen in the left abdomen. PELVIC VISCERA: The uterus is not seen. No adnexal mass. OSSEOUS STRUCTURES: Osteopenia. T12 vertebral body kyphoplasty. Height loss of the L1 vertebral body is unchanged. Degenerative changes of the spine. Hardware in both proximal femora. CT/CT abdomen pelvis wo con IMPRESSION: Airspace opacities with associated groundglass opacities at the lung bases, increased from prior. This is concerning for infectious process. Small volume ascites is new from prior. Otherwise no acute abnormality in the abdomen or pelvis.
--- NOTE | 2020-06-11 13:10 | XR_ITS ---
EXAMINATION: XR CHEST CLINICAL INFORMATION: Shortness of breath COMPARISON: 05/12/2020 TECHNIQUE: Frontal view of the chest was obtained. FINDINGS: Left-sided central venous catheter terminates over the right atrium. Cardiac leads overlie the chest. The lungs are well expanded. Patchy bilateral airspace opacities with interstitial prominence are again noted, similar in appearance to the prior study. No pleural effusion or pneumothorax. The cardiomediastinal silhouette remains prominent, with a calcified aorta. XR/XR chest 1V IMPRESSION: Patchy opacities throughout both lungs with interstitial prominence. This may represent edema versus infectious process.
[2020-06-11 13:36] LABS: MANUAL DIFF FLAG NO
[2020-06-11 13:38] LABS: Basophils Absolute Auto 0.1 X10*3/uL (0.0-0.2); Basophils Percent Auto 0.7 % (0-2); Eosinophils Absolute Auto 0.1 X10*3/uL (0.0-0.4); Eosinophils Percent Auto 1.5 % (0-4); Hematocrit 25.4 % (37-47); Hemoglobin 8.1 g/dl (12.0-16.0); Imm Gran Abs Auto 0.36 X10*3/uL (0.00-0.03); Imm Gran Pct Auto 3.8 % (0.0-0.4); Lymphocytes Absolute Auto 1.7 X10*3/uL (1.2-4.9); Lymphocytes Percent Auto 17.3 % (20-40); Mean Corpuscular HGB Conc 31.9 g/dl (31.0-35.0); Mean Corpuscular Hemoglobin 31.8 pg (27.0-33.0); Mean Corpuscular Volume 99.6 fL (80-98); Mean Platelet Volume 12.3 fL (9.4-12.3); Monocytes Absolute Auto 1.4 X10*3/uL (0.1-1.2); Monocytes Percent Auto 14.6 % (2-11); NRBC Pct Auto 0.2 /100WBC (0.0-0.2); Neutrophils Absolute Auto 5.9 X10*3/uL (2.0-8.3); Neutrophils Percent Auto 62.1 % (45-73); Platelet Count 123 X10*3/uL (160-400); Red Blood Count 2.55 X10*6/uL (4.20-5.50); Red Cell Distribution Width 19.7 % (11.0-16.0); White Blood Count 9.5 X10*3/uL (4.8-10.8)
[2020-06-11 13:45] LABS: Prothrombin Time 12.3 SEC (10.8-13.0)
[2020-06-11 13:48] LABS: Partial Thromboplastin Time 34.7 SEC (24.1-38.0)
[2020-06-11 13:59] LABS: COVID-19 Test Negative (Negative); IDNOW Serial# 9DD0AD1C
[2020-06-11 14:10] LABS: B Type Natriuretic Peptide 1491 pg/mL (<100)
[2020-06-11 14:17] LABS: Troponin-I High Sensitivity 24.8 ng/L (<3.5-17.0)
[2020-06-11 14:24] LABS: Albumin Level 1.6 g/dL (3.5-5.0); Alkaline Phosphatase 459 U/L (39-117); Anion Gap 11 (12-20); Aspartate Amino Transferase 45 U/L (5-31); Bilirubin Direct 0.2 mg/dL (0.0-0.5); Bilirubin Total 0.6 mg/dL (0.0-1.0); Blood Urea Nitrogen 17 mg/dL (9-16); Carbon Dioxide 29 mmol/L (22-29); Chloride 102 mmol/L (96-108); Creatinine Clr Calc Pharmacy 18.8; Estimated Glomerular Filt Rate 17; Glucose Random 172 mg/dL (60-115); Magnesium 1.6 mg/dL (1.6-2.6); Potassium 4.1 mmol/l (3.3-5.1); Sodium 138 mmol/L (135-145); Total Protein 6.6 g/dL (6.5-8.0)
--- NOTE | 2020-06-11 14:27 | CT_ITS ---
EXAMINATION: CT CHEST WITHOUT CONTRAST CLINICAL INFORMATION: Evaluate opacities versus pulmonary edema. COMPARISON: Abdominal CT from today. Chest radiograph from today. Chest CT from 02/29/2020. TECHNIQUE: Multidetector volumetric CT imaging of the chest was done. Axial MIP volume rendering provided. Sagittal and coronal reformatted images were obtained. This CT examination was performed using dose optimization techniques as appropriate, variously including the following: *Automated exposure control *Adjustment of mA and/or kV according to patient size (this includes techniques or standardized protocols for targeted exams where dose is matched to indication/reason for exam; i.e. extremities or head) *Use of iterative reconstruction technique DLP: 520 mGy-cm FINDINGS: LUNGS: The central airways are patent. Ill-defined bilateral opacities are seen throughout both lungs with interstitial prominence and groundglass opacity. Trace right pleural effusion. No pneumothorax. The appearance corresponds to that seen on prior radiograph and abdominal CT. MEDIASTINUM: Borderline enlarged heart. No pericardial effusion. Coronary artery calcifications are present. Evaluation for lymphadenopathy is limited on this noncontrast study. No definite lymphadenopathy seen. AXILLA: No axillary lymphadenopathy. There is an area of fluid in the right chest wall at the previous site of tunneled catheter. Currently there is a left subclavian central venous catheter in place terminating in the right atrium. UPPER ABDOMEN: Small volume ascites. Cholecystectomy. OSSEOUS STRUCTURES: No acute or suspicious osseous abnormality. Degenerative changes throughout the spine. T12 kyphoplasty again noted. CT/CT chest wo con IMPRESSION: Unchanged appearance from recent prior imaging with multifocal diffuse airspace opacities and groundglass opacity. Septal thickening. The appearance remains nonspecific. This could represent multifocal atypical infectious process versus edema.
[2020-06-11 14:35] LABS: Alanine Aminotransferase < 6 U/L (0-31); Lipase 105 U/L (8-78)
[2020-06-11] MEDS: Albuterol/Iprat 2.5/0.5MG 3 ML AMPUL.NEB INHALE (14:56)
[2020-06-11 14:57] VITALS: PULSE 86; O2SAT 96
--- NOTE | 2020-06-11 15:07 | PC.NURSE ---
pt is a tough stick, multiple attempts for bc
--- NOTE | 2020-06-11 15:43 | PC.NURSE ---
lab remains at bedside. attempting to obtain cultures.
[2020-06-11] MEDS: levoFLOXacin/D5W 750 MG/150 ML PIGGYBACK 100 MG IV (15:47)
[2020-06-11 16:09] VITALS: O2SAT 91
[2020-06-11 16:17] LABS: Lactic Acid 1.4 mmol/L (0.5-2.0)
[2020-06-11] MEDS: Bumetanide 1 MG/4 ML VIAL 2 MG IVPUSH (17:31)
[2020-06-11 17:32] VITALS: BP 140/72; PULSE 85
[2020-06-11] MEDS: Albumin Human 25 % 100 ML IV (17:32)
--- NOTE | 2020-06-11 17:39 | PC.NURSE ---
baby nurse aware of pt complaint of pain.
[2020-06-11] MEDS: Magnesium Sulfate/H2O 2 GM/50 ML PIGGYBACK IV (18:49)
[2020-06-11 20:43] VITALS: BP 144/59; PULSE 92; RESP 21; TEMP 36.7; O2SAT 92
--- NOTE | 2020-06-11 21:43 | P.HPHOSP_ITS ---
History of Present Illness Date of Service: 06/11/20 Chief Complaint: SOB 69 y/o F with PMHx of obesity, diabetes, ESRD on dialysis via Permcath TTS, COPD, and CHF, on 2L oxygen at home due to chronic respiratory failure, Covid 19 and staph Aureus bacteremia, who presented from HD center due to worsening difficulty breathing after receiving only 45 minutes of HD. Patient is known to be on home oxygen due to hx of respiratory failure but symptoms did not improve despite therapy. In the ED patient was evaluated initially, BP of 130/74 mmHg, saturating well on nasal cannula, no evidence of fever. Reproted feeling a constant pain in the abdomen that started last night, diffuse, associated with nausea and vomiting but on evaluation denies feeling this discomfort anymore. On bloodwork there was no evidence of leukocytosis, Hgb remains stable 8.1, BNP of 1491, creatinine of 2.7, troponin of 24.8, repeat covid test negative. CT chest showing bilateral airspace groundglass opacities concerning for possible i nfectious process vs edema, CT abdomen showing mild ascites but otherwise negative for any acute intraabdominal pathology. EKG showing Sinus rythm with nonspecific T wave changes. Patient was given IV diuresis, magnesium, Albuterol and one dose of levaquin per ED. Decision for admission given for possible CHF exacerbation. Patient was seen and examined at the bedside, laying down in bed in no acute distress. ROS as above otherwise negative. Denies any chest pain, SOB, nausea or vomiting at moment of evaluation in the ED, reports that earlier symptoms improved. Pitting edema is evident of +1 on exam in bilateral LE. Patient reports that is able to urinate but small amount. Patient is a poor historian. On last admission patient was treated for covid 19 infection as well as Staph aureus bacteremia with Ancef during HD for a total duration of 22 days (Last dose to be on 06/19/20). PMHX: Constipation COPD (chronic obstructive pulmonary disease) Diabetes Diastolic dysfunction Diverticulitis Respiratory failure Covid 19 infection Staph Aureus bacteremia on Ancef till 06/19/20 PSX: Permacath catheter Toxic habits: unknown Review of Systems Constitutional: Constitutional: Reports as per HPI Cardiovascular: Cardiovascular: Reports dyspnea Respiratory: Respiratory: Reports dyspnea Gastrointestinal: Gastrointestinal: Reports abdominal pain [facility] Medical History (Updated 06/11/20 @ 21:58 by Elma Freire MD) Anemia Bacteremia due to Staphylococcus Constipation COPD (chronic obstructive pulmonary disease) Diabetes Diastolic CHF Diastolic dysfunction Diverticulitis Dyspnea ESRD (end stage renal disease) Hyperlipidemia Hypertension Thrombocytopenia Functional capacity: independent ambulation Social History Household Members: Family Housing: Apartment Alcohol intake: never Smoking Status: Smoker, status unknown Smoked in Last 30 Days: No Use of substances other than those prescribed or required for medical reasons: No Advance Directives: Yes Advance Directives Information Provided: Yes Advance Directives on File: No service: No Current occupational status: disabled Meds Allergies Allergy/AdvReac Type Severity Reaction Status Date / Time Penicillins Allergy Severe Anaphylaxis, Verified 05/13/20 12:33 hives acetaminophen [From TYLENOL] Allergy Unknown Unknown Verified 05/13/20 12:36 aspirin [ASPIRIN] Allergy Unknown rash, Verified 05/13/20 12:33 stomach upset diazepam [From VALIUM] Allergy Unknown RESP Verified 04/24/20 20:22 FAILURE penicillin V Allergy Unknown edema Verified 11/21/19 00:00 metformin [Metformin] AdvReac Mild DIARRHEA Verified 04/24/20 20:22 Home Medications Medication Instructions Recorded Confirmed Type atorvastatin 40 mg PO BEDTIME 04/24/20 06/11/20 History bumetanide 4 mg PO SUTUTHSA@0800,1700 04/24/20 06/11/20 History cholecalciferol (vitamin D3) 50 mcg PO QAM 04/24/20 06/11/20 History clopidogrel 75 mg PO BEDTIME 04/24/20 06/11/20 History fluoxetine 5 ml PO DAILY 04/24/20 06/11/20 History isosorbide mononitrate 60 mg PO QAM 04/24/20 06/11/20 History metoprolol tartrate 25 mg PO BID 04/24/20 06/11/20 History Anoro Ellipta 1 puff INHALATION DAILY 05/04/20 06/11/20 History lorazepam 0.5 mg PO DAILY PRN 05/04/20 06/11/20 History quetiapine 25 mg PO BEDTIME PRN 05/04/20 06/11/20 History Physical Exam Vital Signs and Narrative: Vital Signs: Last Vital Signs Temp 98.1 F 06/11/20 20:43 Pulse 92 06/11/20 20:43 Resp 21 H 06/11/20 20:43 BP 144/59 H 06/11/20 20:43 Pulse Ox 92 06/11/20 20:43 Body Mass Index 32.0 Const: General: cooperative, comfortable and no acute distress Orientation/consciousness: oriented to person, oriented to place and oriented to time HENMT: Head: Yes normal to inspection Eyes: General: appearance normal, both eyes and all related structures Neck: Yes normal visual inspection Chest: Chest palpation & inspection: normal inspection of the chest Resp: Effort & Inspection: normal respiratory effort Auscultation: clear to auscultation bilaterally Skin: General skin exam: no rashes or lesions noted Neuro: General: oriented to person, oriented to place and oriented to time Extrem: General: Yes edema (pitting +1) Psych: Appearance: grossly normal Results Labs CBC and Chem 7: 06/11/20 13:30 06/11/20 13:29 Labs: Laboratory Results - last 24 hr 06/11/20 06/11/20 06/11/20 13:22 13:28 13:28 MCV MCH MCHC RDW Plt Count MPV Immature Gran % (Auto) Neut % (Auto) Lymph % (Auto) [place] % (Auto) Eos % (Auto) Baso % (Auto) Lymph # (Auto) [place] # (Auto) Eos # (Auto) Baso # (Auto) Abs Immat Gran (auto) Absolute Neuts (auto) Absolute Nucleated RBC Nucleated RBC % (auto) PT INR APTT Anion Gap Estim Creat Clear Calc Estimated GFR Random Glucose Lactic Acid Calcium Magnesium Total Bilirubin Direct Bilirubin AST ALT Alkaline Phosphatase Troponin I High Sens B-Natriuretic Peptide 1491 H Total Protein Albumin Lipase Cancelled COVID-19 ([facility]ON) Negative COVID-19 Clin Com See Note 06/11/20 06/11/20 06/11/20 13:29 13:29 13:29 MCV MCH MCHC RDW Plt Count MPV Immature Gran % (Auto) Neut % (Auto) Lymph % (Auto) [place] % (Auto) Eos % (Auto) Baso % (Auto) Lymph # (Auto) [place] # (Auto) Eos # (Auto) Baso # (Auto) Abs Immat Gran (auto) Absolute Neuts (auto) Absolute Nucleated RBC Nucleated RBC % (auto) PT 12.3 INR 1.0 APTT 34.7 Anion Gap 11 L Estim Creat Clear Calc 18.8 Estimated GFR 17 Random Glucose 172 H D Lactic Acid Calcium 7.0 L D Magnesium 1.6 Total Bilirubin 0.6 Direct Bilirubin 0.2 AST 45 H ALT < 6 Alkaline Phosphatase 459 H D Troponin I High Sens 24.8 H B-Natriuretic Peptide Total Protein 6.6 Albumin 1.6 L D Lipase 105 H COVID-19 ([facility]ON) COVID-19 Clin Com 06/11/20 06/11/20 13:30 15:29 MCV 99.6 H MCH 31.8 MCHC 31.9 RDW 19.7 H Plt Count 123 L D MPV 12.3 Immature Gran % (Auto) 3.8 H Neut % (Auto) 62.1 Lymph % (Auto) 17.3 L [place] % (Auto) 14.6 H Eos % (Auto) 1.5 Baso % (Auto) 0.7 Lymph # (Auto) 1.7 [place] # (Auto) 1.4 H Eos # (Auto) 0.1 Baso # (Auto) 0.1 Abs Immat Gran (auto) 0.36 H Absolute Neuts (auto) 5.9 Absolute Nucleated RBC 0.020 H Nucleated RBC % (auto) 0.2 PT INR APTT Anion Gap Estim Creat Clear Calc Estimated GFR Random Glucose Lactic Acid 1.4 Calcium Magnesium Total Bilirubin Direct Bilirubin AST ALT Alkaline Phosphatase Troponin I High Sens B-Natriuretic Peptide Total Protein Albumin Lipase COVID-19 ([facility]ON) COVID-19 Clin Com Imaging Radiologist's Impressions: Impressions Abdomen/Pelvis CT 06/11/20 13:09 IMPRESSION: Airspace opacities with associated groundglass opacities at the lung bases, increased from prior. This is concerning for infectious process. Small volume ascites is new from prior. Otherwise no acute abnormality in the abdomen or pelvis. Chest X-Ray 06/11/20 13:10 IMPRESSION: Patchy opacities throughout both lungs with interstitial prominence. This may represent edema versus infectious process. Chest CT 06/11/20 14:27 IMPRESSION: Unchanged appearance from recent prior imaging with multifocal diffuse airspace opacities and groundglass opacity. Septal thickening. The appearance remains nonspecific. This could represent multifocal atypical infectious process versus edema. Assessment and Plan (1) Congestive heart failure: Status: Acute Acute on chronic CHF likely secondary to volume overload due to ESRD on HD At present patient is stable, saturating well on nasal cannula 2 liters s/p bumetanide IV, magnesium and albuterol treatment There is no leukocytosis or any evidence of fever. Underlying infection unlikely. Will not continue with antbx at present Kelley to be inserted Fluid restriction Echo reviewed which was done on past admission and showed preserved EF of 60-65% with TR Continue with plavix home dose Continue with diuresis home dose Continue with metoprolol home dose continue with isosorbide home dose continue with statin home dose Cardiology consult Nephrology consult to arrange for HD as inpatient (2) Respiratory failure with hypoxia: Status: Acute Plan as above (3) Bacteremia due to Staphylococcus: Status: Acute Ancef to be continued per previous Recommendations with HD session for staph bacteremia (4) Renal failure: Status: Acute Nephrology consult for HD as inpatient (5) COPD (chronic obstructive pulmonary disease): Qualifiers: COPD type: COPD with acute exacerbation Qualified Code(s): J44.1 - Chronic obstructive pulmonary disease with (acute) exacerbation Status: Inactive continue with home dose inhaler (6) Bipolar disorder: Status: Acute continue with quetiapine home dose continue with fluoxetine home dose
[2020-06-11 22:12] VITALS: BP 148/71; PULSE 90; RESP 17; TEMP 36.6; O2SAT 93
[2020-06-12] VITALS (9 sets, daily range): BP systolic 120–164; BP diastolic 53–74; PULSE 76–95; RESP 18–22; TEMP 35.9–36.6; O2SAT 93–98
--- NOTE | 2020-06-12 00:10 | PC.NURSE ---
REPORT TAKEN FROM BALDEMAR DAVENPORT, FIRST CONTACT WITH PT. RESTING IN BED, VSS. WARM BLANKET GIVEN. OFFERS NO COMPLAINTS AT THIS TIME. AWAITING BED ASSIGNMENT FOR ADMISSION.
[2020-06-12] MEDS: 0.9 % Sodium Chloride Flush 3 ML SYRINGE IVFLUSH ×4 (00:11→22:48)
[2020-06-12] MEDS: Heparin Sodium,Porcine 5,000 UNIT/ML VIAL 5000 UNIT SUBCUT ×3 (00:14→18:04)
[2020-06-12 06:51] LABS: MANUAL DIFF FLAG NO
[2020-06-12 06:58] LABS: Basophils Absolute Auto 0.1 X10*3/uL (0.0-0.2); Basophils Percent Auto 0.7 % (0-2); Eosinophils Absolute Auto 0.1 X10*3/uL (0.0-0.4); Eosinophils Percent Auto 1.6 % (0-4); Hematocrit 25.1 % (37-47); Hemoglobin 7.8 g/dl (12.0-16.0); Imm Gran Abs Auto 0.15 X10*3/uL (0.00-0.03); Imm Gran Pct Auto 1.8 % (0.0-0.4); Lymphocytes Absolute Auto 1.1 X10*3/uL (1.2-4.9); Lymphocytes Percent Auto 13.4 % (20-40); Mean Corpuscular HGB Conc 31.1 g/dl (31.0-35.0); Mean Corpuscular Hemoglobin 31.1 pg (27.0-33.0); Mean Platelet Volume 12.4 fL (9.4-12.3); Monocytes Absolute Auto 1.1 X10*3/uL (0.1-1.2); Monocytes Percent Auto 13.2 % (2-11); Neutrophils Absolute Auto 5.8 X10*3/uL (2.0-8.3); Neutrophils Percent Auto 69.3 % (45-73); Platelet Count 106 X10*3/uL (160-400); Red Blood Count 2.51 X10*6/uL (4.20-5.50); White Blood Count 8.3 X10*3/uL (4.8-10.8)
[2020-06-12 07:31] LABS: Anion Gap 14 (12-20); Blood Urea Nitrogen 24 mg/dL (9-16); Carbon Dioxide 27 mmol/L (22-29); Chloride 101 mmol/L (96-108); Creatinine Clr Calc Pharmacy 15.6; Estimated Glomerular Filt Rate 14; Glucose Random 139 mg/dL (60-115); Potassium 4.2 mmol/l (3.3-5.1); Sodium 138 mmol/L (135-145)
[2020-06-12 07:51] LABS: Calcium 7.8 mg/dL (8.4-10.2)
[2020-06-12] MEDS: Cholecalciferol (Vitamin D3) 25 MCG TABLET 50 MCG PO (09:26)
[2020-06-12] MEDS: Metoprolol Tartrate 25 MG TABLET PO ×2 (09:26→22:48)
[2020-06-12] MEDS: Isosorbide Mononitrate 60 MG TAB.ER.24H PO (09:34)
[2020-06-12] MEDS: FLUoxetine HCl Oral Solution 20 MG/5 ML SOLUTION PO (09:34)
[2020-06-12 10:15] LABS: Glucose Urine UA NEG (NEG); Leukocyte Esterase Urine 1+ (NEG); Nitrite Urine NEG (NEG); PH 6.5 (5.0-8.0); UACC Culture Trigger YES; Urine Blood 2+ (NEG); Urine Ketones 5 MG/DL (NEG); Urine Protein 3+ MG/DL (NEG-TRACE)
[2020-06-12 10:17] LABS: Appearance Urine CLOUDY; Color Urine DARK YELLOW
[2020-06-12 10:27] LABS: Bacteria Urine 2+ /LPF; Squamous Epithelial Cell Urine 3+ /LPF
--- NOTE | 2020-06-12 12:43 | P.CONCA_ITS ---
History of Present Illness History of Present Illness Date of Service: 06/12/20 Requesting physician: Gaston Baltazar Consult reason: congestive heart failure Chief complaint: CHF exacerbation likely secondary to volume overlo Narrative: Liliam is a 69 yo female with PMH of HTN, HLD, DM, COPD, ESRD on dialysis, diastolic HF who was [place] [facility] [place], respiratory failure, diastolic CHF, Gm+ bacteremia from dialysis catheter and new catheter was placed. She was [place] [facility] [place] after reporting sob during hemodialysis. CT scan of chest shows no PE, multifocal atypical infectious process vs edema. CT scan of abdomen showed small volume ascites which was new. No Leukocytosis. EKG SR, downsloping ST lead I, AVl which was unchanged from prior. Troponin negative. She was treated for CHF with IV Bumex, undraft tx. Her albumin was low at 1.6 and was given IV albumin. Serum magnesium was 1.6 and she was given IV supplement. She remains in the ED awaiting bed placement. Today she reports to me that her breathing is back to normal. She denies having shortness of breath at present. She does have an intermittent congested sounding cough and is wearing O2 with nasal cannula. No reports of chest discomfort at present or since her last hospital discharge. No palpitations, presyncope, syncope, PND. HOB usually elevated and is currently. She is not aware of any weight gain or leg swelling. She reports being mostly bedbound at home and walks very little due to weakness and fatigue. She has not missed any dialysis treatments and reports full compliance with medications. Her daughter assists with med mgt. Certified Tajik Interpretor used, Bailey. Review of Systems Review of Systems: as above Yes all other systems are reviewed and are negative [facility] Past Medical History Medical History (Updated 06/12/20 @ 13:11 by Kinjal Walsh NP-C) Anemia Bacteremia due to Staphylococcus Constipation COPD (chronic obstructive pulmonary disease) Diabetes Diastolic CHF Diastolic dysfunction Diverticulitis Dyspnea ESRD (end stage renal disease) Hyperlipidemia Hypertension Thrombocytopenia Functional capacity: independent ambulation Social History Social History Household Members: Family Housing: Apartment Alcohol intake: never Smoking Status: Smoker, status unknown Smoked in Last 30 Days: No Use of substances other than those prescribed or required for medical reasons: No Advance Directives: Yes Advance Directives Information Provided: Yes Advance Directives on File: No service: No Current occupational status: retired and disabled Meds Allergies Allergy/AdvReac Type Severity Reaction Status Date / Time Penicillins Allergy Severe Anaphylaxis, Verified 05/13/20 12:33 hives acetaminophen [From TYLENOL] Allergy Unknown Unknown Verified 05/13/20 12:36 aspirin [ASPIRIN] Allergy Unknown rash, Verified 05/13/20 12:33 stomach upset diazepam [From VALIUM] Allergy Unknown RESP Verified 04/24/20 20:22 FAILURE penicillin V Allergy Unknown edema Verified 11/21/19 00:00 metformin [Metformin] AdvReac Mild DIARRHEA Verified 04/24/20 20:22 Home Medications Medication Instructions Recorded Confirmed Type atorvastatin 40 mg PO BEDTIME 04/24/20 06/11/20 History bumetanide 4 mg PO SUTUTHSA@0800,1700 04/24/20 06/11/20 History cholecalciferol (vitamin D3) 50 mcg PO QAM 04/24/20 06/11/20 History clopidogrel 75 mg PO BEDTIME 04/24/20 06/11/20 History fluoxetine 5 ml PO DAILY 04/24/20 06/11/20 History isosorbide mononitrate 60 mg PO QAM 04/24/20 06/11/20 History metoprolol tartrate 25 mg PO BID 04/24/20 06/11/20 History Anoro Ellipta 1 puff INHALATION DAILY 05/04/20 06/11/20 History lorazepam 0.5 mg PO DAILY PRN 05/04/20 06/11/20 History quetiapine 25 mg PO BEDTIME PRN 05/04/20 06/11/20 History Physical Exam Vital Signs: Vital Signs: Last Vital Signs Temp 97.9 F 06/11/20 22:12 Pulse 95 06/12/20 09:34 Resp 06/12/20 09:05 BP 158/62 H 06/12/20 09:34 Pulse Ox 98 06/12/20 09:05 Body Mass Index 32.0 Const: Other: Chronically ill appearing obese elderly female, sleepy but easily arousable, oriented, no acute distress noted Neck: Other: mild elevation JVD, no noted carotid bruit Resp: Other: Resp unlabored at present, loose sounding congested cough noted. Wearing O2 cannula. Lungs with fine sound rales up to 1/2 posteriorly bilaterally with some rhonci noted upper anterior chest vu Cardio: Other: Heart tones regular, S1, S2 noted, no audible murmur GI: Other: soft, nontender, nondistended Skin: Other: Dry skin, sallow skin color Extrem: Other: noted to RAMIRES, lower legs have a +1 pitting edema near ankle Psych: Other: Calm, appropriate Results Labs and Meds Result diagrams: 06/12/20 06:26 06/12/20 06:26 Lab results: Laboratory Results - last 24 hr 06/11/20 06/11/20 06/11/20 13:22 13:28 13:28 WBC RBC Hgb Hct MCV MCH MCHC RDW Plt Count MPV Immature Gran % (Auto) Neut % (Auto) Lymph % (Auto) [place] % (Auto) Eos % (Auto) Baso % (Auto) Lymph # (Auto) [place] # (Auto) Eos # (Auto) Baso # (Auto) Abs Immat Gran (auto) Absolute Neuts (auto) Absolute Nucleated RBC Nucleated RBC % (auto) PT INR APTT Sodium Potassium Chloride Carbon Dioxide Anion Gap BUN Creatinine Estim Creat Clear Calc Estimated GFR Random Glucose Lactic Acid Calcium Magnesium Total Bilirubin Direct Bilirubin AST ALT Alkaline Phosphatase Troponin I High Sens B-Natriuretic Peptide 1491 H Total Protein Albumin Lipase Cancelled Urine Color Urine Appearance Urine pH Ur Specific [place] Urine Protein Urine Glucose (UA) Urine Ketones Urine Blood Urine Nitrite Ur Leukocyte Esterase Urine RBC Urine WBC Ur Squamous Epith Cells Urine Bacteria Urine Yeast COVID-19 ([facility]ON) Negative COVID-19 Clin Com See Note 06/11/20 06/11/20 06/11/20 13:29 13:29 13:29 WBC RBC Hgb Hct MCV MCH MCHC RDW Plt Count MPV Immature Gran % (Auto) Neut % (Auto) Lymph % (Auto) [place] % (Auto) Eos % (Auto) Baso % (Auto) Lymph # (Auto) [place] # (Auto) Eos # (Auto) Baso # (Auto) Abs Immat Gran (auto) Absolute Neuts (auto) Absolute Nucleated RBC Nucleated RBC % (auto) PT 12.3 INR 1.0 APTT 34.7 Sodium 138 Potassium 4.1 Chloride 102 Carbon Dioxide 29 Anion Gap 11 L BUN 17 H Creatinine 2.72 H Estim Creat Clear Calc 18.8 Estimated GFR 17 Random Glucose 172 H D Lactic Acid Calcium 7.0 L D Magnesium 1.6 Total Bilirubin 0.6 Direct Bilirubin 0.2 AST 45 H ALT < 6 Alkaline Phosphatase 459 H D Troponin I High Sens 24.8 H B-Natriuretic Peptide Total Protein 6.6 Albumin 1.6 L D Lipase 105 H Urine Color Urine Appearance Urine pH Ur Specific [place] Urine Protein Urine Glucose (UA) Urine Ketones Urine Blood Urine Nitrite Ur Leukocyte Esterase Urine RBC Urine WBC Ur Squamous Epith Cells Urine Bacteria Urine Yeast COVID-19 (SHON) COVID-19 Nu-B-2B Com 06/11/20 06/11/20 06/12/20 13:30 15:29 06:26 WBC 9.5 8.3 RBC 2.55 L 2.51 L Hgb 8.1 L 7.8 L Hct 25.4 L 25.1 L MCV 99.6 H 100.0 H MCH 31.8 31.1 MCHC 31.9 31.1 RDW 19.7 H 20.0 H Plt Count 123 L D 106 L MPV 12.3 12.4 H Immature Gran % (Auto) 3.8 H 1.8 H Neut % (Auto) 62.1 69.3 Lymph % (Auto) 17.3 L 13.4 L [place] % (Auto) 14.6 H 13.2 H Eos % (Auto) 1.5 1.6 Baso % (Auto) 0.7 0.7 Lymph # (Auto) 1.7 1.1 L [place] # (Auto) 1.4 H 1.1 Eos # (Auto) 0.1 0.1 Baso # (Auto) 0.1 0.1 Abs Immat Gran (auto) 0.36 H 0.15 H Absolute Neuts (auto) 5.9 5.8 Absolute Nucleated RBC 0.020 H 0.000 Nucleated RBC % (auto) 0.2 0.0 PT INR APTT Sodium Potassium Chloride Carbon Dioxide Anion Gap BUN Creatinine Estim Creat Clear Calc Estimated GFR Random Glucose Lactic Acid 1.4 Calcium Magnesium Total Bilirubin Direct Bilirubin AST ALT Alkaline Phosphatase Troponin I High Sens B-Natriuretic Peptide Total Protein Albumin Lipase Urine Color Urine Appearance Urine pH Ur Specific [place] Urine Protein Urine Glucose (UA) Urine Ketones Urine Blood Urine Nitrite Ur Leukocyte Esterase Urine RBC Urine WBC Ur Squamous Epith Cells Urine Bacteria Urine Yeast COVID-19 (SHON) COVID-19 Clin Com 06/12/20 06/12/20 06:26 10:02 WBC RBC Hgb Hct MCV MCH MCHC RDW Plt Count MPV Immature Gran % (Auto) Neut % (Auto) Lymph % (Auto) [place] % (Auto) Eos % (Auto) Baso % (Auto) Lymph # (Auto) [place] # (Auto) Eos # (Auto) Baso # (Auto) Abs Immat Gran (auto) Absolute Neuts (auto) Absolute Nucleated RBC Nucleated RBC % (auto) PT INR APTT Sodium 138 Potassium 4.2 Chloride 101 Carbon Dioxide 27 Anion Gap 14 BUN 24 H Creatinine 3.28 H Estim Creat Clear Calc 15.6 Estimated GFR 14 Random Glucose 139 H Lactic Acid Calcium 7.8 L D Magnesium Total Bilirubin Direct Bilirubin AST ALT Alkaline Phosphatase Troponin I High Sens B-Natriuretic Peptide Total Protein Albumin Lipase Urine Color DARK YELLOW Urine Appearance CLOUDY Urine pH 6.5 Ur Specific [place] 1.020 Urine Protein 3+ H Urine Glucose (UA) NEG Urine Ketones 5 Urine Blood 2+ H Urine Nitrite NEG Ur Leukocyte Esterase 1+ H Urine RBC 15-29 H Urine WBC 76-150 H Ur Squamous Epith Cells 3+ Urine Bacteria 2+ Urine Yeast 3+ COVID-19 ([facility]) COVID-19 Clin Com Imaging Radiologist's impression: Impressions Abdomen/Pelvis CT 06/11/20 13:09 IMPRESSION: Airspace opacities with associated groundglass opacities at the lung bases, increased from prior. This is concerning for infectious process. Small volume ascites is new from prior. Otherwise no acute abnormality in the abdomen or pelvis. Chest X-Ray 06/11/20 13:10 IMPRESSION: Patchy opacities throughout both lungs with interstitial prominence. This may represent edema versus infectious process. Chest CT 06/11/20 14:27 IMPRESSION: Unchanged appearance from recent prior imaging with multifocal diffuse airspace opacities and groundglass opacity. Septal thickening. The appearance remains nonspecific. This could represent multifocal atypical infectious process versus edema. Assessment and Plan (1) Congestive heart failure: Status: Acute Hx of diastolic CHF. On Bumex at home. Has ESRD and hemodialysis was well. Events of recent hospital admit for COVID PNA, resp failure, diastolic CHF, Gm + bacteremia reviewed. She was discharged on 05/30/20 with ongoing IV AB for bacteremia. She had been doing OK at home then During dialysis yesterday reported increased sob. ED eval with testing as above. [place] to have CHF exacerbation and was given dose if IV Bumex and updraft tx. No urine outpt recorded. Today she reports breathing is back to normal. She continues to require O2 supplement which may be chronic for her. Her lungs do have lots of fine rales and some upper airway rhonci with cough. New small ascites was noted on CT. With her recent COVID/ resp failure admission some of her sob and hypoxia could be infectious related as CT suggests. There are signs that indicate excess fluid as well. Recommend she undergo hemodialysis treatment and then repeat her CXR to assess for improvement. If clearing is noted, then CHF is likely her primary diagnosis. Since she is a dialysis pt, diuretic use and dialysis volumes can be determined by nephrology. Case discussed with Dr Rodriges. We will follow as needed. (2) Respiratory failure with hypoxia: Status: Acute (3) ESRD (end stage renal disease): Status: Inactive Followed by nephrology (4) Hypertension: Status: Inactive Mild elevation at present. Has been continued on her usual home Imdur, Metoprolol. (5) Bacteremia: Status: Acute Continue on IV antibiotic as previously recommended last admit. Blood culture 05/09 showed no growth. Repeat blood culture drawn yesterday. Afebrile.
--- NOTE | 2020-06-12 13:01 | MHC.CM.PN ---
Attempted to meet with patient in regards to discharge planning. Patient currently sleeping. Spoke with patient's daughter/HCP Paulina via telephone at [phone]. 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 PCP verified. HCP verified to be on file. IMM explained and left bedside. Per Paulina, patient has a Cpap at home but not oxygen. Paulina is unable to provide the name of the company that supplies the CPAP. Anticipate patient will return home via BLS with resumption of services when medically stable. Patient and family are not interested in STR placement. Continue to monitor for d/c needs.
--- NOTE | 2020-06-12 13:06 | PM.CNNEP ---
History of Present Illness Reason for Consult Consult date: 06/12/20 Reason for consult: ESRD Chief Complaint Chief complaint: CHF exacerbation likely secondary to volume overlo History of Present Illness Narrative: 69 y/o ESRD TTS adm yest after 45 min of her HD Tx bc/ c/o back pain and SOB. Overall doing better this am. Pain is less and brething bettter. Info obtained form EHR as she is a poor hsitorian. Llast admission patient was treated for covid 19 infection as well as Staph aureus bacteremia with Ancef during HD for a total duration of 22 days (Last dose to be on 06/19/20). PMHX: Constipation COPD (chronic obstructive pulmonary disease) Diabetes Diastolic dysfunction Diverticulitis Respiratory failure Covid 19 infection Staph Aureus bacteremia on Ancef till 06/19/20 Review of Systems Review of Systems Constitutional: No Weight loss, No Fever, No Chills, No Night Sweats Cardiovascular: No Chest Pain, + SOB, No Dyspnea on Exertion, No Orthopnea, +chronic Edema >LLE Respiratory: +chronic Cough, No Sputum, No Smoke Exposure, No Dyspnea Gastrointestinal: +Nausea, No Vomiting, + Diarrhea, No Constipation, +Abdominal pain Genitourinary: No irregular bleeding, No Dysuria, No Urinary Frequency, No Hematuria, +Flank Pain, No Urinary Flow Changes, No Hesitancy Musculoskeletal: No joint pain, No Myalgias, No Joint Swelling Skin: No Skin Lesions, No rash Neuro: No Weakness, No Numbness, No Paresthesias, No Headache Yes all other systems are reviewed and are negative Constitutional: Reports as per HPI Cardiovascular: Reports dyspnea Respiratory: Reports dyspnea Gastrointestinal: Reports abdominal pain [facility] Past Medical History Medical History Anemia Bacteremia due to Staphylococcus Constipation COPD (chronic obstructive pulmonary disease) Diabetes Diastolic CHF Diastolic dysfunction Diverticulitis Dyspnea ESRD (end stage renal disease) Hyperlipidemia Hypertension Thrombocytopenia Functional capacity: independent ambulation Social History Social History Household Members: Family Housing: Apartment Alcohol intake: never Smoking Status: Smoker, status unknown Smoked in Last 30 Days: No Use of substances other than those prescribed or required for medical reasons: No Advance Directives: Yes Advance Directives Information Provided: Yes Advance Directives on File: No service: No Current occupational status: retired and disabled Meds Allergies Allergy/AdvReac Type Severity Reaction Status Date / Time Penicillins Allergy Severe Anaphylaxis, Verified 05/13/20 12:33 hives acetaminophen [From TYLENOL] Allergy Unknown Unknown Verified 05/13/20 12:36 aspirin [ASPIRIN] Allergy Unknown rash, Verified 05/13/20 12:33 stomach upset diazepam [From VALIUM] Allergy Unknown RESP Verified 04/24/20 20:22 FAILURE penicillin V Allergy Unknown edema Verified 11/21/19 00:00 metformin [Metformin] AdvReac Mild DIARRHEA Verified 04/24/20 20:22 Home Medications Medication Instructions Recorded Confirmed Type atorvastatin 40 mg PO BEDTIME 04/24/20 06/11/20 History bumetanide 4 mg PO SUTUTHSA@0800,1700 04/24/20 06/11/20 History cholecalciferol (vitamin D3) 50 mcg PO QAM 04/24/20 06/11/20 History clopidogrel 75 mg PO BEDTIME 04/24/20 06/11/20 History fluoxetine 5 ml PO DAILY 04/24/20 06/11/20 History isosorbide mononitrate 60 mg PO QAM 04/24/20 06/11/20 History metoprolol tartrate 25 mg PO BID 04/24/20 06/11/20 History Anoro Ellipta 1 puff INHALATION DAILY 05/04/20 06/11/20 History lorazepam 0.5 mg PO DAILY PRN 05/04/20 06/11/20 History quetiapine 25 mg PO BEDTIME PRN 05/04/20 06/11/20 History Physical Exam Vital Signs: Last Vital Signs Temp 97.9 F 06/11/20 22:12 Pulse 95 06/12/20 09:34 Resp 06/12/20 09:05 BP 158/62 H 06/12/20 09:34 Pulse Ox 98 06/12/20 09:05 Body Mass Index 32.0 Const General: cooperative, comfortable and no acute distress Orientation/consciousness: oriented to person, oriented to place, oriented to time and patient oriented x3 Limitations: no limitations HENMT Head: Yes normal to inspection Ears: hearing grossly normal bilaterally General nose exam: Normal external nose present Face and sinus: Yes normal facial exam Eyes General: appearance normal, both eyes and all related structures EOM: EOMs intact bilaterally Neck Neck: Yes normal visual inspection and Yes no meningeal signs Chest Chest palpation & inspection: normal inspection of the chest Resp Other: Coarse lung sounds throughout Effort & Inspection: normal respiratory effort Auscultation: clear to auscultation bilaterally and crackles diffuse Cardio Rate: regular rate Heart sounds: S1 normal heart sound present and S2 normal heart sound present GI Inspection: Yes normal to inspection Palpation (GI): Soft to palpation, Tenderness to palpation present (GI) (diffusely), no guarding and not rigid General: Yes CVA tenderness bilateral Back/Spine/Pelvis Back: CVA tenderness Skin General skin exam: no rashes or lesions noted Rashes: no rashes Wounds: no wounds Neuro General: oriented to person, oriented to place, oriented to time, patient oriented x3 and no meningeal signs Gait exam (Neuro): Normal gait present Extrem Other: +LLE edema >R (chronic per patient) General: Yes normal to inspection and Yes edema (pitting +1) Psych Appearance: grossly normal Results Lab Results Result Diagrams: 06/12/20 06:26 06/12/20 06:26 Lab results: Chemistry 06/11/20 06/12/20 13:29 06:26 Sodium 138 138 Potassium 4.1 4.2 Carbon Dioxide 29 27 BUN 17 H 24 H Creatinine 2.72 H 3.28 H Calcium 7.0 L D 7.8 L D Hematology 06/11/20 06/12/20 13:30 06:26 WBC 9.5 8.3 Hgb 8.1 L 7.8 L Plt Count 123 L D 106 L Urinalysis 06/12/20 10:02 Urine Color DARK YELLOW Urine Appearance CLOUDY Urine pH 6.5 Ur Specific [place] 1.020 Urine Protein 3+ H Urine Glucose (UA) NEG Urine Ketones 5 Urine Blood 2+ H Urine Nitrite NEG Ur Leukocyte Esterase 1+ H Urine RBC 15-29 H Urine WBC 76-150 H Ur Squamous Epith Cells 3+ Assessment and Plan (1) Congestive heart failure: Status: Acute (2) Respiratory failure with hypoxia: Status: Acute (3) Bacteremia due to Staphylococcus: Status: Acute (4) Renal failure: Status: Acute (5) COPD (chronic obstructive pulmonary disease): Qualifiers: COPD type: COPD with acute exacerbation Qualified Code(s): J44.1 - Chronic obstructive pulmonary disease with (acute) exacerbation Status: Inactive (6) Bipolar disorder: Status: Acute 1. ESRD: usu TTS but will give xtra 2 hrs UF today given ques CHF vs COVID Lung pesristent changes on CXR vs new pulm infection 2. SOB: getting tc for all the above and will do 2 hrs UF 3. Anemai 4. H/O MSSA line infection 5. Back/abd pain: ques etiol REC: UF x 2 hrs today then reg HD tomorrow; BAx as noted to complete Tx course for prior MSSA bactermia
[2020-06-12 13:55] LABS: Glucose, Whole Blood 158 mg/dL (60-115)
--- NOTE | 2020-06-12 14:32 | PC.NURSE ---
PT OFF UNIT FOR DIALYSIS TREATMENT.
--- NOTE | 2020-06-12 15:08 | P.PNIM_ITS ---
Subjective Subjective Date of Service: 06/12/20 Interval History: Seen in f/u for shortness of breath, suspect due to fluid overload and getting dialysis. Overall feels better ROS: Gen: no fever Resp: no sob, no cough CV: no chest, no GARZA, no leg edema GI: No n/v, no abd pain Neuro: No confusion Physical Exam Vital Signs: Vital Signs: Last Vital Signs Temp 97.9 F 06/11/20 22:12 Pulse 86 06/12/20 13:16 Resp 18 06/12/20 13:16 BP 164/65 H 06/12/20 13:16 Pulse Ox 96 06/12/20 13:16 Body Mass Index 32.0 General: AO X 3, no acute distress Resp: normal resp effort CVS: S1,S2,RRR GI: +BS, NT, no distention Skin: No rash Neuro: motor grossly intact Psych: appropriate affect Objective Data Current Medications Generic Name Dose Route Start Last Admin Trade Name Freq PRN Reason Stop Dose Admin Atorvastatin Calcium 40 mg 06/12/20 21:00 Atorvastatin Calcium 40 Mg Tablet PO BEDTIME OPAL Bumetanide 4 mg 06/13/20 08:00 Bumetanide 1 Mg Tablet PO SUTUTHSA@0800,1700 [facility] Clopidogrel Bisulfate 75 mg 06/12/20 21:00 Clopidogrel Bisulfate 75 Mg Tablet PO BEDTIME OPAL Fluoxetine HCl 20 mg 06/12/20 09:00 06/12/20 09:34 Fluoxetine Hcl Oral Solution 20 Mg/5 Ml Solution PO 20 mg DAILY OPAL Administration Heparin Sodium (Porcine) 5,000 unit 06/11/20 21:45 06/12/20 09:26 Heparin Sodium,Porcine 5,000 Unit/Ml Vial SUBCUT 5,000 unit Q8H OPAL Administration Isosorbide Mononitrate 60 mg 06/12/20 09:00 06/12/20 09:34 Isosorbide Mononitrate 60 Mg Tab.Er.24h PO 60 mg DAILY OPAL Administration Protocol Metoprolol Tartrate 25 mg 06/12/20 09:00 06/12/20 09:26 Metoprolol Tartrate 25 Mg Tablet PO 25 mg BID OPAL Administration Protocol Pharmacy Consult 1 each 06/11/20 13:09 Consult Rx Perform Med Rec MISCELLANE ONCE PRN Consult order Quetiapine Fumarate 25 mg 06/12/20 08:33 Quetiapine Fumarate 25 Mg Tablet PO BEDTIME PRN Insomnia Sodium Chloride 3 ml 06/12/20 00:00 06/12/20 09:27 0.9 % Sodium Chloride Flush 3 Ml Syringe IVFLUSH 3 ml QSHIFT OPAL Administration Vitamin D 50 mcg 06/12/20 09:00 06/12/20 09:26 Cholecalciferol (Vitamin D3) 25 Mcg Tablet PO 50 mcg DAILY OPAL Administration Labs CBC & Chem 7: 06/12/20 06:26 06/12/20 06:26 Assessment and Plan (1) Congestive heart failure: Status: Acute (2) Respiratory failure with hypoxia: Status: Acute (3) ESRD (end stage renal disease): Status: Inactive (4) Hypertension: Status: Inactive (5) Bacteremia: Status: Acute Assessment and Plan: (1)Per cardiology assessment:Hx of diastolic CHF. On Bumex at home. Has ESRD and hemodialysis was well. Events of recent hospital admit for COVID PNA, resp failure, diastolic CHF, Gm + bacteremia reviewed. She was discharged on 05/30/20 with ongoing IV AB for bacteremia. She had been doing OK at home then During dialysis yesterday reported increased sob. ED eval with testing as above. [place] to have CHF exacerbation and was given dose if IV Bumex and updraft tx. No urine outpt recorded. Today she reports breathing is back to normal. She continues to require O2 supplement which may be chronic for her. Her lungs do have lots of fine rales and some upper airway rhonci with cough. New small ascites was noted on CT. With her recent COVID/ resp failure admission some of her sob and hypoxia could be infectious related as CT suggests. There are signs that indicate excess fluid as well. Recommend she undergo hemodialysis treatment and then repeat her CXR to assess for improvement. If clearing is noted, then CHF is likely her primary diagnosis. Since she is a dialysis pt, diuretic use and dialysis volumes can be determined by nephrology. Followed by nephrology (2) Respiratory failure with hypoxia--resolved. (3) ESRD (end stage renal disease):Dialysis per Nephrology (4) Hypertension: Mild elevation at present. Has been continued on her usual home Imdur, Metoprolol. (5) Staph Bacteremia: -Continue on IV antibiotic as previously recommended last admit. Blood culture 05/09 showed no growth. Repeat blood culture drawn yesterday. Afebrile.
[2020-06-12 17:37] LABS: Glucose, Whole Blood 135 mg/dL (60-115)
[2020-06-12 20:06] LABS: Glucose, Whole Blood 191 mg/dL (60-115)
[2020-06-12] MEDS: QUEtiapine Fumarate 25 MG TABLET PO (22:48)
[2020-06-12] MEDS: Atorvastatin Calcium 40 MG TABLET PO (22:48)
[2020-06-12] MEDS: Clopidogrel Bisulfate 75 MG TABLET PO (22:48)
[2020-06-13] VITALS (7 sets, daily range): BP systolic 100–138; BP diastolic 42–64; PULSE 80–91; RESP 18–28; TEMP 36.5–37; O2SAT 92–100; BMI 31.9
[2020-06-13] MEDS: Heparin Sodium,Porcine 5,000 UNIT/ML VIAL 5000 UNIT SUBCUT ×2 (02:53→17:48)
[2020-06-13 07:12] LABS: Glucose, Whole Blood 126 mg/dL (60-115)
[2020-06-13] MEDS: 0.9 % Sodium Chloride Flush 3 ML SYRINGE IVFLUSH ×2 (08:10→17:48)
[2020-06-13] MEDS: Bumetanide 1 MG TABLET 4 MG PO ×2 (08:10→17:49)
[2020-06-13] MEDS: FLUoxetine HCl Oral Solution 20 MG/5 ML SOLUTION PO (08:10)
[2020-06-13] MEDS: Cholecalciferol (Vitamin D3) 25 MCG TABLET 50 MCG PO (08:11)
--- NOTE | 2020-06-13 09:51 | PM.PNNEP ---
Subjective Subjective Date of Service: 06/13/20 Interval history: Seen and examined on dialysis no complaints Physical Exam Vital Signs: Vital Signs: Last Vital Signs Temp 97.7 F 06/13/20 07:46 Pulse 86 06/13/20 07:46 Resp 28 H 06/13/20 07:46 BP 116/42 L 06/13/20 07:46 Pulse Ox 95 06/13/20 07:46 Body Mass Index 31.9 Const: General: no acute distress HENMT: Head: Yes normocephalic and Yes atraumatic Neck: Neck: Yes supple Resp: Auscultation: diminished lung sounds Cardio: Heart sounds: S1 normal heart sound present and S2 normal heart sound present GI: Palpation (GI): Soft to palpation and nontender Psych: Appearance: grossly normal Objective Data Labs CBC & Chem 7: 06/12/20 06:26 06/12/20 06:26 Labs: Laboratory Results - last 24 hr 06/12/20 06/12/20 06/12/20 10:02 13:50 17:25 POC Glucose 158 H 135 H Urine Color DARK YELLOW Urine Appearance CLOUDY Urine pH 6.5 Ur Specific [place] 1.020 Urine Protein 3+ H Urine Glucose (UA) NEG Urine Ketones 5 Urine Blood 2+ H Urine Nitrite NEG Ur Leukocyte Esterase 1+ H Urine RBC 15-29 H Urine WBC 76-150 H Ur Squamous Epith Cells 3+ Urine Bacteria 2+ Urine Yeast 3+ 06/12/20 06/13/20 19:58 07:04 POC Glucose 191 H 126 H Urine Color Urine Appearance Urine pH Ur Specific [place] Urine Protein Urine Glucose (UA) Urine Ketones Urine Blood Urine Nitrite Ur Leukocyte Esterase Urine RBC Urine WBC Ur Squamous Epith Cells Urine Bacteria Urine Yeast Microbiology Microbiology Results: Microbiology 06/12/20 Unknown Urine [place] Urine Culture - Final No growth. 06/11/20 15:48 Blood - Venous Blood Culture - Preliminary No growth after 24 hours. 06/11/20 15:24 Blood - Venous Blood Culture - Preliminary No growth after 24 hours. Assessment & Plan Assessment and plan (1) ESRD (end stage renal disease): Status: Acute (2) Anemia: Status: Acute Assessment and Plan: known ESRD normally dialyzes t-t-s history of heart failure with preserved ejection fraction volume status above dry weight REC HD today optimize volume status renal diet epogen phosphate binders Time Spent With Patient Time: Total time spent is greater than 50% in coordination of care (as documented) at patient's floor/unit and/or counseling patient:
[2020-06-13 11:01] LABS: Glucose, Whole Blood 171 mg/dL (60-115)
[2020-06-13 16:13] LABS: Glucose, Whole Blood 148 mg/dL (60-115)
[2020-06-13 20:14] LABS: Glucose, Whole Blood 155 mg/dL (60-115)
[2020-06-13] MEDS: Atorvastatin Calcium 40 MG TABLET PO (21:34)
[2020-06-13] MEDS: Metoprolol Tartrate 25 MG TABLET PO (21:34)
[2020-06-13] MEDS: QUEtiapine Fumarate 25 MG TABLET PO (21:34)
[2020-06-13] MEDS: Clopidogrel Bisulfate 75 MG TABLET PO (21:34)
--- NOTE | 2020-06-14 | XR_ITS ---
EXAMINATION: XR CHEST, PORTABLE CLINICAL INFORMATION: 69-year-old female patient with fluid overload. COMPARISON: Chest x-rays from 04/24/2020 through 06/11/2020. CT the chest done 3 days ago. TECHNIQUE: AP portable semierect view of the chest was obtained. The time of examination was 1:42 PM. FINDINGS: A dual-lumen left internal jugular veins venous catheter tip is in the right atrium. The heart is normal in size. Chronic coarse interstitial opacities both lungs represent interstitial edema, not improved. No pleural effusions are seen on this semierect exam. There is an ununited fracture involving the neck of the left humerus. Vertebroplasty at T11. XR/XR chest 1V IMPRESSION: No improvement in the interstitial edema. No airspace edema. Dual lumen central venous catheter tip in the right atrium. Ununited displaced fracture, neck of the left humerus.
[2020-06-14] MEDS: Morphine Sulfate 2 MG/ML CARTRIDGE 1 MG IVPUSH (02:14)
[2020-06-14] MEDS: Heparin Sodium,Porcine 5,000 UNIT/ML VIAL 5000 UNIT SUBCUT ×2 (02:15→09:32)
[2020-06-14] MEDS: 0.9 % Sodium Chloride Flush 3 ML SYRINGE IVFLUSH ×2 (02:15→09:32)
[2020-06-14 06:00] VITALS: BMI 30.1
[2020-06-14 06:04] VITALS: BP 117/58; PULSE 76; RESP 18; TEMP 37; O2SAT 98
[2020-06-14 07:12] LABS: Glucose, Whole Blood 126 mg/dL (60-115)
[2020-06-14 07:31] VITALS: BP 130/62; PULSE 74; RESP 20; TEMP 36.4; O2SAT 100
--- NOTE | 2020-06-14 08:48 | P.PNNP_ITS ---
Subjective Subjective Date of Service: 06/14/20 Interval history: Seen and examined had dialysis yesterday no complaints Physical Exam 2 Vital Signs: Vital Signs: Last Vital Signs Temp 97.5 F 06/14/20 07:31 Pulse 74 06/14/20 07:31 Resp 20 06/14/20 07:31 BP 130/62 06/14/20 07:31 Pulse Ox 100 06/14/20 07:31 Body Mass Index 30.1 Const: General: no acute distress HENMT: Head: Yes normocephalic and Yes atraumatic Neck: Neck: Yes supple Resp: Auscultation: diminished lung sounds Cardio: Heart sounds: S1 normal heart sound present and S2 normal heart sound present GI: Palpation (GI): Soft to palpation and nontender Psych: Appearance: grossly normal Objective Data Labs CBC & Chem 7: 06/12/20 06:26 06/12/20 06:26 Labs: Laboratory Results - last 24 hr 06/13/20 06/13/20 06/13/20 10:53 16:05 20:06 POC Glucose 171 H 148 H 155 H 06/14/20 06:59 POC Glucose 126 H Microbiology Microbiology Results: Microbiology 06/11/20 15:48 Blood - Venous Blood Culture - Preliminary No growth after 48 hours. 06/11/20 15:24 Blood - Venous Blood Culture - Preliminary No growth after 48 hours. 06/12/20 Unknown Urine [place] Urine Culture - Final No growth. Assessment & Plan Assessment and plan (1) ESRD (end stage renal disease): Status: Acute (2) Anemia: Status: Acute Assessment and Plan: known ESRD normally dialyzes t-t-s history of heart failure with preserved ejection fraction REC HD per schedule renal diet epogen phosphate binders Time Spent With Patient Time: Total time spent is greater than 50% in coordination of care (as documented) at patient's floor/unit and/or counseling patient:
[2020-06-14] MEDS: Metoprolol Tartrate 25 MG TABLET PO (09:32)
[2020-06-14] MEDS: FLUoxetine HCl Oral Solution 20 MG/5 ML SOLUTION PO (09:32)
[2020-06-14] MEDS: Cholecalciferol (Vitamin D3) 25 MCG TABLET 50 MCG PO (09:33)
[2020-06-14] MEDS: Isosorbide Mononitrate 60 MG TAB.ER.24H PO (09:33)
[2020-06-14] MEDS: Bumetanide 1 MG TABLET 4 MG PO (09:36)
[2020-06-14 10:54] LABS: Glucose, Whole Blood 139 mg/dL (60-115)
[2020-06-14 11:13] VITALS: BP 112/53; PULSE 75; RESP 24; TEMP 36.4; O2SAT 96
--- NOTE | 2020-06-14 11:40 | P.DS_ITS ---
DS: Providers Provider Date of Service: 06/15/20 Date of admission: 06/11/20 21:40 Primary care physician: Jennifer Loya MD Consults: 06/11/20 21:40 Consult to Cardiology Routine Consulting Provider: [facility] [place] Cardiovascular Services Reason for consultation: CHF exacerbation Has provider been notified: No Consult to Nephrology Routine Consulting Provider: [facility] Reason for consultation: ESRD on HD Has provider been notified: No DS: Diagnosis Discharge Diagnosis (1) ESRD (end stage renal disease): Status: Acute (2) Anemia: Status: Acute DS: Medications Discharge Medications Home Medications: Home Medications Medication Instructions Recorded Confirmed atorvastatin 40 mg PO BEDTIME 04/24/20 06/11/20 bumetanide 4 mg PO SUTUTHSA@0800,1700 04/24/20 06/11/20 cholecalciferol (vitamin D3) 50 mcg PO QAM 04/24/20 06/11/20 clopidogrel 75 mg PO BEDTIME 04/24/20 06/11/20 fluoxetine 5 ml PO DAILY 04/24/20 06/11/20 isosorbide mononitrate 60 mg PO QAM 04/24/20 06/11/20 metoprolol tartrate 25 mg PO BID 04/24/20 06/11/20 Anoro Ellipta 1 puff INHALATION DAILY 05/04/20 06/11/20 lorazepam 0.5 mg PO DAILY PRN 05/04/20 06/11/20 quetiapine 25 mg PO BEDTIME PRN 05/04/20 06/11/20 DS: Summary Hospital Course Hospital Course: (1)Per cardiology assessment:Hx of diastolic CHF. On Bumex at home. Has ESRD and hemodialysis was well. Events of recent hospital admit for COVID PNA, resp failure, diastolic CHF, Gm + bacteremia reviewed. She was discharged on 05/30/20 with ongoing IV AB for bacteremia. She had been doing OK at home then During dialysis yesterday reported increased sob. ED eval with testing as above. [employer] to have CHF exacerbation and was given dose if IV Bumex and updraft tx. No urine outpt recorded. Today she reports breathing is back to normal. She continues to require O2 supplement which may be chronic for her. Her lungs do have lots of fine rales and some upper airway rhonci with cough. New small ascites was noted on CT. With her recent COVID/ resp failure admission some of her sob and hypoxia could be infectious related as CT suggests. There were signs that indicate excess fluid as well. So she undwent hemodialysis treatment and then repeat her and felt better. (2) Respiratory failure with hypoxia--resolved. (3) ESRD (end stage renal disease):Dialysis per Nephrology (4) Hypertension: Mild elevation at present. Has been continued on her usual home Imdur, Metoprol ol. (5) history of Staph Bacteremia from dialysis catheter which was removed at that time and replaced on May 22, 2020. Last culture from 05/09/20 was negative. She is supposed to be on Ancef 2 rocio post dailysis for 6 weeks, last day should be June 19 2020. To continue getting this on dialysis days Time Spent with Patient Time attestation: Total time spent providing and/or coordinating discharge services: Discharge coordination time: Greater than 30 minutes Physical Exam Vital Signs: Vital Signs: Last Vital Signs Temp 97.5 F 06/14/20 11:13 Pulse 75 06/14/20 11:13 Resp 24 H 06/14/20 11:13 BP 112/53 L 06/14/20 11:13 Pulse Ox 96 06/14/20 11:13 Body Mass Index 30.1 General: AO X 3, no acute distress Resp: CTA bilateral CVS: S1,S2,RRR GI: +BS, NT, no distention Skin: No rash Neuro: motor grossly intact Psych: appropriate affect DS: Data Data Completed and Pending Completed studies during hospitalization [Text1]: Procedures Insertion of Infusion Device into Superior Vena Cava, Percutaneous Approach (05/04/20) Performance of Urinary Filtration, Intermittent, Less than 6 Hours Per Day (05/04/20) Removal of Infusion Device from Upper Vein, Open Approach (05/04/20) Transfusion of Nonautologous Platelets into Peripheral Vein, Percutaneous Approach (05/04/20) Ultrasonography of Superior Vena Cava, Guidance (05/04/20) Labs on day of discharge: Laboratory Tests 06/11/20 06/11/20 06/11/20 13:22 13:28 13:28 WBC RBC Hgb Hct MCV MCH MCHC RDW Plt Count MPV Immature Gran % (Auto) Neut % (Auto) Lymph % (Auto) [place] % (Auto) Eos % (Auto) Baso % (Auto) Lymph # (Auto) [place] # (Auto) Eos # (Auto) Baso # (Auto) Abs Immat Gran (auto) Absolute Neuts (auto) Absolute Nucleated RBC Nucleated RBC % (auto) PT INR APTT Sodium Potassium Chloride Carbon Dioxide Anion Gap BUN Creatinine Estim Creat Clear Calc Estimated GFR POC Glucose Random Glucose Lactic Acid Calcium Magnesium Total Bilirubin Direct Bilirubin AST ALT Alkaline Phosphatase Troponin I High Sens B-Natriuretic Peptide 1491 H Total Protein Albumin Lipase Cancelled Urine Color Urine Appearance Urine pH Ur Specific [place] Urine Protein Urine Glucose (UA) Urine Ketones Urine Blood Urine Nitrite Ur Leukocyte Esterase Urine RBC Urine WBC Ur Squamous Epith Cells Urine Bacteria Urine Yeast COVID-19 (SHON) Negative [employer] See Note 06/11/20 06/11/20 06/11/20 13:29 13:29 13:29 WBC RBC Hgb Hct MCV MCH MCHC RDW Plt Count MPV Immature Gran % (Auto) Neut % (Auto) Lymph % (Auto) [place] % (Auto) Eos % (Auto) Baso % (Auto) Lymph # (Auto) [place] # (Auto) Eos # (Auto) Baso # (Auto) Abs Immat Gran (auto) Absolute Neuts (auto) Absolute Nucleated RBC Nucleated RBC % (auto) PT 12.3 INR 1.0 APTT 34.7 Sodium 138 Potassium 4.1 Chloride 102 Carbon Dioxide 29 Anion Gap 11 L BUN 17 H Creatinine 2.72 H Estim Creat Clear Calc 18.8 Estimated GFR 17 POC Glucose Random Glucose 172 H D Lactic Acid Calcium 7.0 L D Magnesium 1.6 Total Bilirubin 0.6 Direct Bilirubin 0.2 AST 45 H ALT < 6 Alkaline Phosphatase 459 H D Troponin I High Sens 24.8 H B-Natriuretic Peptide Total Protein 6.6 Albumin 1.6 L D Lipase 105 H Urine Color Urine Appearance Urine pH Ur Specific [place] Urine Protein Urine Glucose (UA) Urine Ketones Urine Blood Urine Nitrite Ur Leukocyte Esterase Urine RBC Urine WBC Ur Squamous Epith Cells Urine Bacteria Urine Yeast COVID-19 (SHON) COVID-[employer] 06/11/20 06/11/20 06/12/20 13:30 15:29 06:26 WBC 9.5 8.3 RBC 2.55 L 2.51 L Hgb 8.1 L 7.8 L Hct 25.4 L 25.1 L MCV 99.6 H 100.0 H MCH 31.8 31.1 MCHC 31.9 31.1 RDW 19.7 H 20.0 H Plt Count 123 L D 106 L MPV 12.3 12.4 H Immature Gran % (Auto) 3.8 H 1.8 H Neut % (Auto) 62.1 69.3 Lymph % (Auto) 17.3 L 13.4 L [place] % (Auto) 14.6 H 13.2 H Eos % (Auto) 1.5 1.6 Baso % (Auto) 0.7 0.7 Lymph # (Auto) 1.7 1.1 L [place] # (Auto) 1.4 H 1.1 Eos # (Auto) 0.1 0.1 Baso # (Auto) 0.1 0.1 Abs Immat Gran (auto) 0.36 H 0.15 H Absolute Neuts (auto) 5.9 5.8 Absolute Nucleated RBC 0.020 H 0.000 Nucleated RBC % (auto) 0.2 0.0 PT INR APTT Sodium Potassium Chloride Carbon Dioxide Anion Gap BUN Creatinine Estim Creat Clear Calc Estimated GFR POC Glucose Random Glucose Lactic Acid 1.4 Calcium Magnesium Total Bilirubin Direct Bilirubin AST ALT Alkaline Phosphatase Troponin I High Sens B-Natriuretic Peptide Total Protein Albumin Lipase Urine Color Urine Appearance Urine pH Ur Specific [place] Urine Protein Urine Glucose (UA) Urine Ketones Urine Blood Urine Nitrite Ur Leukocyte Esterase Urine RBC Urine WBC Ur Squamous Epith Cells Urine Bacteria Urine Yeast COVID-19 (SHON) COVID-19 Clin Com 06/12/20 06/12/20 06/12/20 06:26 10:02 13:50 WBC RBC Hgb Hct MCV MCH MCHC RDW Plt Count MPV Immature Gran % (Auto) Neut % (Auto) Lymph % (Auto) [place] % (Auto) Eos % (Auto) Baso % (Auto) Lymph # (Auto) [place] # (Auto) Eos # (Auto) Baso # (Auto) Abs Immat Gran (auto) Absolute Neuts (auto) Absolute Nucleated RBC Nucleated RBC % (auto) PT INR APTT Sodium 138 Potassium 4.2 Chloride 101 Carbon Dioxide 27 Anion Gap 14 BUN 24 H Creatinine 3.28 H Estim Creat Clear Calc 15.6 Estimated GFR 14 POC Glucose 158 H Random Glucose 139 H Lactic Acid Calcium 7.8 L D Magnesium Total Bilirubin Direct Bilirubin AST ALT Alkaline Phosphatase Troponin I High Sens B-Natriuretic Peptide Total Protein Albumin Lipase Urine Color DARK YELLOW Urine Appearance CLOUDY Urine pH 6.5 Ur Specific [place] 1.020 Urine Protein 3+ H Urine Glucose (UA) NEG Urine Ketones 5 Urine Blood 2+ H Urine Nitrite NEG Ur Leukocyte Esterase 1+ H Urine RBC 15-29 H Urine WBC 76-150 H Ur Squamous Epith Cells 3+ Urine Bacteria 2+ Urine Yeast 3+ COVID-19 (SHON) COVID-19 Clin Com 06/12/20 06/12/20 06/13/20 17:25 19:58 07:04 WBC RBC Hgb Hct MCV MCH MCHC RDW Plt Count MPV Immature Gran % (Auto) Neut % (Auto) Lymph % (Auto) [place] % (Auto) Eos % (Auto) Baso % (Auto) Lymph # (Auto) [place] # (Auto) Eos # (Auto) Baso # (Auto) Abs Immat Gran (auto) Absolute Neuts (auto) Absolute Nucleated RBC Nucleated RBC % (auto) PT INR APTT Sodium Potassium Chloride Carbon Dioxide Anion Gap BUN Creatinine Estim Creat Clear Calc Estimated GFR POC Glucose 135 H 191 H 126 H Random Glucose Lactic Acid Calcium Magnesium Total Bilirubin Direct Bilirubin AST ALT Alkaline Phosphatase Troponin I High Sens B-Natriuretic Peptide Total Protein Albumin Lipase Urine Color Urine Appearance Urine pH Ur Specific [place] Urine Protein Urine Glucose (UA) Urine Ketones Urine Blood Urine Nitrite Ur Leukocyte Esterase Urine RBC Urine WBC Ur Squamous Epith Cells Urine Bacteria Urine Yeast COVID-19 (SHON) COVID-19 SMRxT Com 06/13/20 06/13/20 06/13/20 10:53 16:05 20:06 WBC RBC Hgb Hct MCV MCH MCHC RDW Plt Count MPV Immature Gran % (Auto) Neut % (Auto) Lymph % (Auto) [place] % (Auto) Eos % (Auto) Baso % (Auto) Lymph # (Auto) [place] # (Auto) Eos # (Auto) Baso # (Auto) Abs Immat Gran (auto) Absolute Neuts (auto) Absolute Nucleated RBC Nucleated RBC % (auto) PT INR APTT Sodium Potassium Chloride Carbon Dioxide Anion Gap BUN Creatinine Estim Creat Clear Calc Estimated GFR POC Glucose 171 H 148 H 155 H Random Glucose Lactic Acid Calcium Magnesium Total Bilirubin Direct Bilirubin AST ALT Alkaline Phosphatase Troponin I High Sens B-Natriuretic Peptide Total Protein Albumin Lipase Urine Color Urine Appearance Urine pH Ur Specific [place] Urine Protein Urine Glucose (UA) Urine Ketones Urine Blood Urine Nitrite Ur Leukocyte Esterase Urine RBC Urine WBC Ur Squamous Epith Cells Urine Bacteria Urine Yeast COVID-19 (SHON) COVID-19 [email or web address] 06/14/20 06/14/20 06:59 10:47 WBC RBC Hgb Hct MCV MCH MCHC RDW Plt Count MPV Immature Gran % (Auto) Neut % (Auto) Lymph % (Auto) [place] % (Auto) Eos % (Auto) Baso % (Auto) Lymph # (Auto) [place] # (Auto) Eos # (Auto) Baso # (Auto) Abs Immat Gran (auto) Absolute Neuts (auto) Absolute Nucleated RBC Nucleated RBC % (auto) PT INR APTT Sodium Potassium Chloride Carbon Dioxide Anion Gap BUN Creatinine Estim Creat Clear Calc Estimated GFR POC Glucose 126 H 139 H Random Glucose Lactic Acid Calcium Magnesium Total Bilirubin Direct Bilirubin AST ALT Alkaline Phosphatase Troponin I High Sens B-Natriuretic Peptide Total Protein Albumin Lipase Urine Color Urine Appearance Urine pH Ur Specific [place] Urine Protein Urine Glucose (UA) Urine Ketones Urine Blood Urine Nitrite Ur Leukocyte Esterase Urine RBC Urine WBC Ur Squamous Epith Cells Urine Bacteria Urine Yeast COVID-19 (SHON) COVID-19 SMRxT Com Preliminary micro results at discharge 06/11/20 15:48 Blood Culture - Preliminary Blood - Venous No growth after 48 hours. 06/11/20 15:24 Blood Culture - Preliminary Blood - Venous No growth after 48 hours. Discharge Plan Discharge Anticipated Discharge Date/Time: 06/14/20 11:24 Patient Disposition: Home, Self-Care Referrals: Jennifer Loya MD [Primary Care Provider] - Discharge Medications: Continued atorvastatin 40 mg tablet 40 mg PO BEDTIME RF: 0 fluoxetine 20 mg/5 mL (4 mg/mL) solution 5 ml PO DAILY RF: 0 bumetanide 2 mg tablet 4 mg PO SUTUTHSA@0800,1700 RF: 0 clopidogrel 75 mg tablet 75 mg PO BEDTIME RF: 0 Hold Instructions: Resume on 06/08/20. isosorbide mononitrate 60 mg tablet extended release 24 hr 60 mg PO QAM RF: 0 metoprolol tartrate 25 mg tablet 25 mg PO BID RF: 0 cholecalciferol (vitamin D3) 50 mcg (2,000 unit) tablet 50 mcg PO QAM RF: 0 quetiapine 25 mg tablet 25 mg PO BEDTIME PRN (Reason: Insomnia) RF: 0 lorazepam 0.5 mg tablet 0.5 mg PO DAILY PRN (Reason: Agitation) RF: 0 Anoro Ellipta 62.5-25 mcg/actuation blister with device 1 puff inhalation DAILY RF: 0 Discharge Orders: Discharge Order (Routine); Ordered 06/14/20 Ordered By: Gaston Corrales Diet: advance to usual diet and other Activity on Discharge: As tolerated Stand Alone Forms: Patient Portal Discharge page Visit Report Forms: Patient Portal Discharge page Care Plan Goals: Prevent rehospitalization Health Concerns: fluid overload Plan of Treatment: Return to dialysis as usual, continue Ancef on dialysis days as before, continue Tube feed in addition to eating. To continue Ancef 2 gram after dialysis until June 19 for Staff [facility] catheter related bacteremia. Discharge Date/Time: 06/14/20 15:30
--- NOTE | 2020-06-14 13:10 | MHC.CM.PN ---
Pt cleared for DC today. CM contacted pts daughter/caregiver, Paulina ([phone]) to inform her of DC. pt will be transported via [facility] arranged for 1530 hours. Paulina asks that they be informed to use the ally entrance to the building as that is where the elevator is-message relayed. Pt discharging home today with resumption of her [facility] services and outpatient HD. Pt will be transported via [facility] at 1530 hours
[2020-06-14 15:31] VITALS: BP 130/63; PULSE 78; RESP 18; TEMP 36.4; O2SAT 97
== END 2020-06-14 15:30 | disposition home or self-care (01) | DRG 190 ==
LOC: HO.ED 16:12 → HO.EDOVER 21:48 → HO.IMC 06-12 16:07
PROVIDERS: Physician Assistant; Admitting Provider Internal Medicine; Emergency Provider Internal Medicine; PCP Family Medicine; Visit Provider Internal Medicine
DX: J44.1 Chronic obstructive pulmonary disease with (acute) exacerbation (principal); N18.6 End stage renal disease; J96.91 Respiratory failure, unspecified with hypoxia; I50.33 Acute on chronic diastolic (congestive) heart failure; I13.2 Hypertensive heart and chronic kidney disease with heart failure and with stage 5 chronic kidney disease, or end stage renal disease; R78.81 Bacteremia; F31.9 Bipolar disorder, unspecified; E11.22 Type 2 diabetes mellitus with diabetic chronic kidney disease; D63.1 Anemia in chronic kidney disease; B95.8 Unspecified staphylococcus as the cause of diseases classified elsewhere; Z99.81 Dependence on supplemental oxygen; Z86.16 Personal history of COVID-19; Z99.2 Dependence on renal dialysis; Z79.02 Long term (current) use of antithrombotics/antiplatelets; Z79.899 Other long term (current) drug therapy
CPT/HCPCS: 36415; 71045; 71250; 74176; 80048; 80076; 81001; 81003; 82947; 83605; 83690; 83735; 83880; 84484; 85025; 85610; 85730; 87040; 87086; 87635; 90999; 93005; 94640; 96365; 96367; 96375; 99232; 99285; J0885; J1956; J2270; J3475; P9047

== ENCOUNTER 2020-06-22 13:34 | Emergency (ER) | payer MEDICARE, MEDICAID, SELFPAY ==
--- NOTE | 2020-06-22 | ECG_ITS ---
Test Reason : ABD PAIN Blood Pressure : / mmHG Vent. Rate : 080 BPM Atrial Rate : 080 BPM P-R Int : 118 ms QRS Dur : 086 ms QT Int : 372 ms P-R-T Axes : 041 042 143 degrees QTc Int : 429 ms Sinus rhythm with Premature atrial complexes Nonspecific ST and T wave abnormality Abnormal ECG When compared with ECG of 11-JUN-2020 13:19, No significant change was found Referred By: Generic ED Physician Electronically Signed By:PARKER FLOWER
--- NOTE | ~2020-06-22 | XR_ITS ---
EXAMINATION: XR ABDOMEN KUB CLINICAL INDICATION: G-tube. Assess Gastrografin COMPARISON: 02/29/2020 TECHNIQUE: AP view of the abdomen. Prior to imaging Gastrografin was placed through the gastrostomy tube FINDINGS: Oral contrast seen within the stomach surrounding the air-filled gastrostomy tube balloon. No evidence for extravasation. The appearance is similar to 02/29/2020 study. Left hip hardware partially visualized. The bowel gas pattern is otherwise normal with no evidence of ileus or obstruction. No unusual soft tissue calcifications are noted. The bones are otherwise unremarkable. XR/XR KUB IMPRESSION: Gastric tube appears be within the stomach.
--- NOTE | ~2020-06-22 | CT_ITS ---
EXAMINATION: CT ABDOMEN AND PELVIS WITHOUT CONTRAST CLINICAL INFORMATION: Left upper quadrant pain. COMPARISON: CT abdomen and pelvis 06/11/2020 TECHNIQUE: Multidetector volumetric imaging was performed from the superior aspect of the liver through the pubic symphysis. Sagittal and coronal reformatted images were obtained on the technologist's workstation. This CT examination was performed using dose optimization techniques as appropriate, variously including the following: *Automated exposure control *Adjustment of mA and/or kV according to patient size (this includes techniques or standardized protocols for targeted exams where dose is matched to indication/reason for exam; i.e. extremities or head) *Use of iterative reconstruction technique DLP: 734 mGy-cm FINDINGS: LUNG BASES: There is bilateral lower lobe reticular interstitial changes and bilateral posterior pleural thickening likely chronic interstitial lung disease. The heart size is normal. LIVER, GALLBLADDER, AND BILIARY TREE: The liver is normal in size, shape, and attenuation. No focal hepatic lesion or biliary ductal dilatation is present. The gallbladder has been surgically removed. PANCREAS: Unremarkable. SPLEEN: Unremarkable. ADRENAL GLANDS: Unremarkable. KIDNEYS AND URETERS: The kidneys are normal in size, shape, and attenuation. No hydronephrosis, hydroureter, or calculi seen. No perinephric stranding. BLADDER: Unremarkable. GASTROINTESTINAL TRACT: There is scattered diverticuli in gas seen throughout the colon without any significant distention. The small bowel loops are normal caliber. The stomach is moderately distended with fluids and a gastrostomy tube present. ABDOMINAL WALL: No significant hernia is appreciated. LYMPH NODES: Normal. VASCULAR: There is evidence for calcification of abdominal aorta aorta without aneurysmal dilatation. PELVIC VISCERA: There is no free fluid in the pelvis. OSSEOUS STRUCTURES: No lytic or sclerotic process seen. There is cement augmentation of L1 compression fracture. No acute fracture seen CT/CT abdomen pelvis wo con IMPRESSION: Scattered colonic diverticulosis without diverticulitis. No colonic distention seen. Moderately distended stomach with air-fluid level and G-tube in place. Cholecystectomy change. Bilateral lower lobe chronic interstitial changes with bilateral posterior pleural thickening.
[2020-06-22 13:52] VITALS: BP 126/59; PULSE 93; RESP 18; TEMP 36.9; O2SAT 100; BMI 40.2
--- NOTE | 2020-06-22 14:05 | ED_ITS ---
HPI - Abdominal Pain General Chief Complaint: Abdominal Pain Stated Complaint: NAUSEA/ABD PAIN Time Seen by Provider: 06/22/20 14:06 Source: patient, EMS, old records reviewed and educational sign language interpreter Mode of arrival: EMS Limitations: other (poor historian ) History of Present Illness HPI narrative: 69 yo female poor historian - CHF, DM, COPD on home O2, ESRD T S - just admitted in April for CHF, respiratory failure, ESRD, staph bacteremia from HD catheter was replaced on 05/22/20 she is supposed to be on Ancef for 6 weeks last treatment was on 06/19, admitted just this last month for possible pneumonia, patient comes in today with c/o pain in LUQ near G tube site reportedly had feeding then vomited c/o pain was able to tolerate another feeding but came in for increased pain - she vomited Monday morning - patient has gastric tube 2019 - she does feedings on it daily, she is mostly dependent on tube feedings. MD elicited complaint: abdominal pain Pertinent past history: other (gastric tube dependent) Onset (ago): day(s) (1) Pain Consistency: intermittent Location: LUQ Severity: mild Quality: fullness Radiation: none Migration to: no migration Exacerbating factors: eating Relieving factors: nothing Associated symptoms: nausea and vomiting Related Data Home Medications Medication Instructions Recorded Confirmed atorvastatin 40 mg PO BEDTIME 04/24/20 06/11/20 bumetanide 4 mg PO SUTUTHSA@0800,1700 04/24/20 06/11/20 cholecalciferol (vitamin D3) 50 mcg PO QAM 04/24/20 06/11/20 clopidogrel 75 mg PO BEDTIME 04/24/20 06/11/20 fluoxetine 5 ml PO DAILY 04/24/20 06/11/20 isosorbide mononitrate 60 mg PO QAM 04/24/20 06/11/20 metoprolol tartrate 25 mg PO BID 04/24/20 06/11/20 Anoro Ellipta 1 puff INHALATION DAILY 05/04/20 06/11/20 lorazepam 0.5 mg PO DAILY PRN 05/04/20 06/11/20 quetiapine 25 mg PO BEDTIME PRN 05/04/20 06/11/20 Allergies Allergy/AdvReac Type Severity Reaction Status Date / Time Penicillins Allergy Severe Anaphylaxis, Verified 05/13/20 12:33 hives acetaminophen [From TYLENOL] Allergy Unknown Unknown Verified 05/13/20 12:36 aspirin [ASPIRIN] Allergy Unknown rash, Verified 05/13/20 12:33 stomach upset diazepam [From VALIUM] Allergy Unknown RESP Verified 04/24/20 20:22 FAILURE penicillin V Allergy Unknown edema Verified 11/21/19 00:00 metformin [Metformin] AdvReac Mild DIARRHEA Verified 04/24/20 20:22 Review of Systems Review of Systems Constitutional : No Weight loss, No Fever, No Chills ENT/Mouth : No sore throat, No Rhinorrhea Eyes: No Swelling, No Redness Cardiovascular : No Chest Pain, No SOB, NoEdema Respiratory : No Cough, No Sputum, No Wheezing Gastrointestinal : Positive Nausea, Positive Vomiting, no Diarrhea, positive abdominal Pain, No Hematochezia, No Melena Genitourinary : No Dysuria, No Urinary Frequency, No Hematuria, No Urgency Musculoskeletal : No joint pain, No Myalgias, No Joint Swelling Skin : No Skin Lesions, No rash Neuro : No Weakness, No Numbness, No Dizziness, No Headache Psych : No Anxiety/Panic, No Depression Heme/Lymph: No Bruising, No Lymphadenopathy Endocrine : No Polyuria, No Polydipsia All other systems reviewed and are negative. Physical Exam Vital Signs: Vital Signs: Last Vital Signs Temp 98.5 F 06/22/20 13:52 Pulse 93 06/22/20 13:52 Resp 18 06/22/20 13:52 BP 126/59 L 06/22/20 13:52 Pulse Ox 100 06/22/20 13:52 Body Mass Index 40.2 Appearance: Alert. Oriented X3. No acute distress. intermittently confused Eyes: Pupils equal, round and reactive to light. ENT: Pharynx normal. Neck: Normal inspection. Neck supple. CVS: Normal heart rate and rhythm. Pulses normal. Chest: L side permacath c/d/i no signs of infection Respiratory: No respiratory distress. Breath sounds decreased at the bases Abdomen: Soft and ttp along G tube site with mild distention in that area area is c/d/i Skin: Skin warm and dry. Normal skin color. Normal skin turgor. Extremities: No lower extremity edema. No calf ttp Neuro: Oriented X 3. No motor deficit. No sensory deficit. Procedures EJ/Peripheral Line Neck R: Time Out Performed: Yes Skin Cleansed in Sterile Fashion: Yes Size (gauge): 20 IV Secured and Dressing Applied: Yes Patient Tolerated Procedure: well Course Course Course Narrative: c/o pain to LUQ - will aspirate port and see if that improves her pain signed out to Dr. Cano pending workup MDM - Abdominal Pain MDM Narrative Medical decision making narrative: 69 yo female with hx of COPD, CHF, ESRD she is g tube dependent here with LUQ pain at site of g tube and reported vomiting on and off at this time will need labs, IV morphine for pain, CT scan for obstr uction, disop per results and findings. Lab Data Result diagrams: 06/22/20 15:18 06/22/20 15:18 Labs: Lab Results 06/22/20 06/22/20 06/22/20 Range/Units 15:18 15:18 15:18 WBC 10.0 (4.8-10.8) X10*3/uL RBC 2.78 L (4.20-5.50) X10*6/uL Hgb 9.0 L (12.0-16.0) g/dl Hct 29.5 L (37-47) % MCV 106.1 H (80-98) fL MCH 32.4 (27.0-33.0) pg MCHC 30.5 L (31.0-35.0) g/dl RDW 19.2 H (11.0-16.0) % Plt Count 112 L (160-400) X10*3/uL MPV 12.0 (9.4-12.3) fL Immature Gran % (Auto) 0.4 (0.0-0.4) % Neut % (Auto) 80.0 H (45-73) % Lymph % (Auto) 9.7 L (20-40) % [place] % (Auto) 7.6 (2-11) % Eos % (Auto) 1.6 (0-4) % Baso % (Auto) 0.7 (0-2) % Lymph # (Auto) 1.0 L (1.2-4.9) X10*3/uL [place] # (Auto) 0.8 (0.1-1.2) X10*3/uL Eos # (Auto) 0.2 (0.0-0.4) X10*3/uL Baso # (Auto) 0.1 (0.0-0.2) X10*3/uL Abs Immat Gran (auto) 0.04 H (0.00-0.03) X10*3/uL Absolute Neuts (auto) 8.0 (2.0-8.3) X10*3/uL Absolute Nucleated RBC 0.000 (0.0-0.012) X10*3/uL Nucleated RBC % (auto) 0.0 (0.0-0.2) /100WBC Smear Tech's Comments Not Reportable PT 12.9 (10.8-13.0) SEC INR 1.1 (0.9-1.1) APTT 35.8 (24.1-38.0) SEC Troponin I High Sens 14.6 (<3.5-17.0) ng/L ECG Data Attestation: I personally reviewed and interpreted this ECG as follows: ECG interpretation date: 06/22/20 ECG interpretation time: 14:06 Interpretation: Rate: 80 Rhythm: NSR [place]: normal Normal P waves. Normal ROBERT. Normal QRS complex. ST T wave : inverted 1 and aVL , no CARMELA qTC: normal prior studies: no acute ischemia The study has been interpreted contemporaneously by me. . Discharge Plan Discharge Clinical Impression: Abdominal pain Prescriptions: No [facility] atorvastatin 40 mg tablet 40 mg PO BEDTIME RF: 0 fluoxetine 20 mg/5 mL (4 mg/mL) solution 5 ml PO DAILY RF: 0 bumetanide 2 mg tablet 4 mg PO SUTUTHSA@0800,1700 RF: 0 clopidogrel 75 mg tablet 75 mg PO BEDTIME RF: 0 Hold Instructions: Resume on 06/08/20. isosorbide mononitrate 60 mg tablet extended release 24 hr 60 mg PO QAM RF: 0 metoprolol tartrate 25 mg tablet 25 mg PO BID RF: 0 cholecalciferol (vitamin D3) 50 mcg (2,000 unit) tablet 50 mcg PO QAM RF: 0 quetiapine 25 mg tablet 25 mg PO BEDTIME PRN (Reason: Insomnia) RF: 0 lorazepam 0.5 mg tablet 0.5 mg PO DAILY PRN (Reason: Agitation) RF: 0 Anoro Ellipta 62.5-25 mcg/actuation blister with device 1 puff inhalation DAILY RF: 0 PMFSH Past Medical History Attestation statement: The following information was validated with the patient. Medical History Anemia Anemia Bacteremia due to Staphylococcus Bipolar disorder Constipation COPD (chronic obstructive pulmonary disease) Diabetes Diastolic CHF Diastolic dysfunction Diverticulitis Dyspnea ESRD (end stage renal disease) ESRD (end stage renal disease) Hyperlipidemia Hypertension Pneumonia Renal failure Thrombocytopenia Social History Social History Household Members: Children Housing: Apartment Alcohol intake: never Smoking Status: Former smoker Tobacco Type: Cigarette Years Smoked: many years Advance Directives: Yes Advance Directives on File: Yes Advance Directives Date on File: 06/12/20 service: No Current occupational status: retired and disabled
[2020-06-22 15:25] LABS: MANUAL DIFF FLAG SCAN; Mean Corpuscular HGB Conc 30.5 g/dl (31.0-35.0); PLT CLUMP 1; SCAN SMEAR FLAG 1
[2020-06-22 15:26] LABS: Basophils Absolute Auto 0.1 X10*3/uL (0.0-0.2); Basophils Percent Auto 0.7 % (0-2); Eosinophils Absolute Auto 0.2 X10*3/uL (0.0-0.4); Eosinophils Percent Auto 1.6 % (0-4); Hematocrit 29.5 % (37-47); Imm Gran Abs Auto 0.04 X10*3/uL (0.00-0.03); Imm Gran Pct Auto 0.4 % (0.0-0.4); Lymphocytes Percent Auto 9.7 % (20-40); Mean Corpuscular Hemoglobin 32.4 pg (27.0-33.0); Mean Corpuscular Volume 106.1 fL (80-98); Monocytes Absolute Auto 0.8 X10*3/uL (0.1-1.2); Monocytes Percent Auto 7.6 % (2-11); Platelet Count 112 X10*3/uL (160-400); Red Blood Count 2.78 X10*6/uL (4.20-5.50); Red Cell Distribution Width 19.2 % (11.0-16.0)
[2020-06-22 15:44] LABS: INTERNATIONAL NORM RATIO 1.1 (0.9-1.1); Prothrombin Time 12.9 SEC (10.8-13.0)
[2020-06-22 15:47] LABS: Partial Thromboplastin Time 35.8 SEC (24.1-38.0)
[2020-06-22 15:49] LABS: Troponin-I High Sensitivity 14.6 ng/L (<3.5-17.0)
--- NOTE | 2020-06-22 16:46 | PC.NURSE ---
pt difficult stick, multiple attempts to draw. EJ in by
[2020-06-22 17:29] VITALS: RESP 20
[2020-06-22] MEDS: ondansetron HCL 4 MG/2 ML VIAL IVPUSH (17:29)
[2020-06-22] MEDS: Morphine Sulfate 2 MG/ML CARTRIDGE IVPUSH (17:29)
[2020-06-22 17:30] VITALS: BP 129/65; PULSE 81; RESP 16; O2SAT 100
[2020-06-22 17:38] LABS: Alanine Aminotransferase < 6 U/L (0-31); Albumin Level 1.8 g/dL (3.5-5.0); Alkaline Phosphatase 379 U/L (39-117); Anion Gap 9 (12-20); Aspartate Amino Transferase 21 U/L (5-31); Bilirubin Direct 0.2 mg/dL (0.0-0.5); Bilirubin Total 0.3 mg/dL (0.0-1.0); Blood Urea Nitrogen 26 mg/dL (9-16); Calcium 7.8 mg/dL (8.4-10.2); Carbon Dioxide 39 mmol/L (22-29); Chloride 94 mmol/L (96-108); Creatinine Clr Calc Pharmacy 17.3; Estimated Glomerular Filt Rate 14; Glucose Random 208 mg/dL (60-115); Lipase 50 U/L (8-78); Potassium 3.4 mmol/L (3.3-5.1); Sodium 139 mmol/L (135-145); Total Protein 6.8 g/dL (6.5-8.0)
[2020-06-22 19:13] VITALS: BP 123/60; PULSE 92; RESP 16; O2SAT 100
--- NOTE | 2020-06-22 19:14 | PC.NURSE ---
Pt resting on stretcher in NAD, breathing with ease on baseline NC 3LPM. Pt G tube replaced by Dr Cano. Pt daughter updated by Dr Cano, plan for ambulance transport to home. Pt updated on plan of care, is agreeable. Pt offers no concerns/complaints/questions at this time
== END 2020-06-22 20:20 | disposition home or self-care (01) ==
PROVIDERS: Emergency Medicine; Emergency Provider Internal Medicine; PCP Family Medicine
DX: R10.12 Left upper quadrant pain (principal); Z46.59 Encounter for fitting and adjustment of other gastrointestinal appliance and device; E11.22 Type 2 diabetes mellitus with diabetic chronic kidney disease; I13.2 Hypertensive heart and chronic kidney disease with heart failure and with stage 5 chronic kidney disease, or end stage renal disease; I50.9 Heart failure, unspecified; N18.6 End stage renal disease; F17.210 Nicotine dependence, cigarettes, uncomplicated
CPT/HCPCS: 36415; 43762; 74018; 74176; 80048; 80076; 83690; 83735; 84484; 85025; 85610; 85730; 93005; 96374; 96376; 99284; J2270; J2405

== ENCOUNTER 2020-06-25 16:02 | Outpatient (REF) | payer MEDICARE, MEDICAID, SELFPAY ==
--- NOTE | ~2020-06-25 | XR_ITS ---
EXAMINATION: XR CHEST CLINICAL INFORMATION: Worsening cough, history COVID COMPARISON: Chest radiographs 06/14/2020, 06/11/2020 TECHNIQUE: 2 views of the chest were obtained. FINDINGS: The lung volumes are very low, inspiration to level of sixth posterior intercostal space. There are diffuse bilateral pulmonary opacities. Central venous line again seen. Cardiopericardial silhouette is grossly stable. No acute bony abnormality. XR/XR chest 2V IMPRESSION: Very low lung volumes. Diffuse bilateral pulmonary opacities.
== END 2020-06-25 16:03 | disposition home or self-care (01) ==
LOC: HO.XRAY 16:02
PROVIDERS: Visit Provider Internal Medicine Hypertension Specialist
DX: R05 Cough (principal); Z86.19 Personal history of other infectious and parasitic diseases
CPT/HCPCS: 71046

== ENCOUNTER 2020-07-11 12:48 | Emergency (ER) | payer MEDICARE, MEDICAID, SELFPAY ==
--- NOTE | ~2020-07-11 | XR_ITS ---
EXAMINATION: XR chest 1V CLINICAL INFORMATION: Shortness of breath COMPARISON: Prior chest x-ray 06/25/2020 TECHNIQUE: XR chest 1V Tubes and lines: Left IJ central line catheter tip projecting over the right atrium unchanged. Lungs and Ekllie: Redemonstration of bilateral pulmonary interstitial opacification diffusely involving both lungs unchanged allowing variation in technique. Pleura: Normal. Costophrenic angles are sharp. No pneumothorax. Heart and mediastinum: Heart and mediastinum are widened exaggerated by AP technique.. Bones: Skeletal structures included are normal for patient's age. XR/XR chest 1V IMPRESSION: Exam is stable. Redemonstration of bilateral pulmonary interstitial opacification diffusely involving both lungs unchanged. Central line catheter remain in place.
[2020-07-11 13:00] VITALS: BP 141/62; PULSE 70; PULSE 74; RESP 22; TEMP 36.6; O2SAT 100; BMI 36.3
[2020-07-11 13:50] VITALS: BP 140/63; PULSE 75; RESP 18; O2SAT 100
--- NOTE | 2020-07-11 14:18 | ECG_ITS ---
Test Reason : DYSPNEA Blood Pressure : / mmHG Vent. Rate : 087 BPM Atrial Rate : 087 BPM P-R Int : 120 ms QRS Dur : 094 ms QT Int : 380 ms P-R-T Axes : 032 023 024 degrees QTc Int : 457 ms Normal sinus rhythm Nonspecific ST and T wave abnormality Abnormal ECG No significant changes when compared with the previous EKG of 22 jun 2020 Referred By: June Argueta Electronically Signed By:PARKER FLOWER
--- NOTE | 2020-07-11 14:25 | ED.SOB ---
HPI - SOB/Dyspnea General Chief Complaint: Dyspnea Stated Complaint: DIFF BREATHING,RECENT RECOVER COVID,NO FEVER Time Seen by Provider: 07/11/20 12:57 Source: patient and EMS Mode of arrival: EMS History of Present Illness HPI Narrative: 69 yo F with PMHx of obesity, diabetes, ESRD on dialysis via Permcath, COPD, and CHF, on 2L oxygen at home, recent COVID-19+ and Staph aureus bacteremic, presenting to the ED via EMS from dialysis, only tolerated 1hr of dialysis today due to SOB and noted hypoxia. Per dialysis notes patient was hypoxic 63% on 3L on NC improved to to 95% on non-rebreather. Patient reports she had a near syncopal episode during HD. Admits to chronic cough, and SOB. Denies chest pain, abdominal pain, nausea/vomiting, LE edema, dysuria/hematuria, LOC MD elicited complaint: shortness of breath and cough Related Data Home Medications Medication Instructions Recorded Confirmed atorvastatin 40 mg PO BEDTIME 04/24/20 06/11/20 bumetanide 4 mg PO SUTUTHSA@0800,1700 04/24/20 06/11/20 cholecalciferol (vitamin D3) 50 mcg PO QAM 04/24/20 06/11/20 clopidogrel 75 mg PO BEDTIME 04/24/20 06/11/20 fluoxetine 5 ml PO DAILY 04/24/20 06/11/20 isosorbide mononitrate 60 mg PO QAM 04/24/20 06/11/20 metoprolol tartrate 25 mg PO BID 04/24/20 06/11/20 Anoro Ellipta 1 puff INHALATION DAILY 05/04/20 06/11/20 lorazepam 0.5 mg PO DAILY PRN 05/04/20 06/11/20 quetiapine 25 mg PO BEDTIME PRN 05/04/20 06/11/20 Allergies Allergy/AdvReac Type Severity Reaction Status Date / Time Penicillins Allergy Severe Anaphylaxis, Verified 05/13/20 12:33 hives acetaminophen [From TYLENOL] Allergy Unknown Unknown Verified 05/13/20 12:36 aspirin [ASPIRIN] Allergy Unknown rash, Verified 05/13/20 12:33 stomach upset diazepam [From VALIUM] Allergy Unknown RESP Verified 04/24/20 20:22 FAILURE penicillin V Allergy Unknown edema Verified 11/21/19 00:00 metformin [Metformin] AdvReac Mild DIARRHEA Verified 04/24/20 20:22 Review of Systems Review of Systems: Constitutional: No Fever, No Chills, No Fatigue, No Malaise Cardiovascular: No Chest Pain, + SOB, No Orthopnea, No Edema Respiratory: +chronic Cough, No Sputum, No Wheezing Gastrointestinal: No Nausea, No Vomiting, No Diarrhea, No Abdominal pain Musculoskeletal: No joint pain, No Myalgias, No Joint Swelling Skin: No Skin Lesions, No rash Neuro: No LOC, +near syncope Yes all other systems are reviewed and are negative [facility]LY [facility] Past Medical History Attestation statement: The following information was validated with the patient. Medical History Anemia Anemia Bacteremia due to Staphylococcus Bipolar disorder Constipation COPD (chronic obstructive pulmonary disease) Diabetes Diastolic CHF Diastolic dysfunction Diverticulitis Dyspnea ESRD (end stage renal disease) ESRD (end stage renal disease) Hyperlipidemia Hypertension Pneumonia Renal failure Thrombocytopenia Social History Social History Household Members: Children Housing: Apartment Alcohol intake: never Smoking Status: Never smoker Tobacco Type: Cigarette Years Smoked: many years Advance Directives: Yes Advance Directives on File: Yes Advance Directives Date on File: 06/12/20 service: No Current occupational status: retired and disabled Physical Exam Vital Signs: Vital Signs: Last Vital Signs Temp 98 F 07/11/20 13:00 Pulse 86 07/11/20 14:30 Resp 20 07/11/20 14:30 BP 142/71 H 07/11/20 14:30 Pulse Ox 100 07/11/20 14:30 Body Mass Index 36.3 Const: General: cooperative Orientation/consciousness: patient oriented x3 Limitations: no limitations HENMT: Head: Yes normal to inspection Ears: hearing grossly normal bilaterally General nose exam: Normal external nose present Face and sinus: Yes normal facial exam Eyes: General: appearance normal, both eyes and all related structures EOM: EOMs intact bilaterally Neck: Neck: Yes normal visual inspection Resp: Effort & Inspection: normal respiratory effort and tachypneic Auscultation: clear to auscultation bilaterally and rhonchi throughout Cardio: Rate: regular rate Heart sounds: S1 normal heart sound present and S2 normal heart sound present GI: Inspection: Yes normal to inspection Palpation (GI): Soft to palpation, nontender, no guarding and not rigid Skin: Rashes: no rashes Wounds: no wounds Neuro: General: patient oriented x3 Extrem: General: Yes normal to inspection, Yes no pedal edema and Yes no calf tenderness Course Course Course Narrative: -H/H chronically low, renal function better than baseline as patient just received partial dialysis -troponin 59.7 likely from renal dysfunction >> but will obtain 3 hour repeat. BNP 1700 (chronically high) CR chest 1V IMPRESSION: Exam is stable. Redemonstration of bilateral pulmonary interstitial opacification diffusely involving both lungs unchanged. Central line catheter remain in place -1620-- on re-eval patient in no acute distress. sating 100% on 2L NC, which is her baseline. PO Magnesium and Potassium repletion ordered. -Procalcitonin noted to be elevated at 20 > likely from CKD and being immunocompromised. Low concern for bacterial infection. No WBC, lactic negative, afebrile. --1700-- ED care transferred to [facility] Seg[facility] pending repeat Troponin, UA, re-evaluation and discharge per results MDM - SOB/Dyspnea MDM Narrative Medical decision making narrative: 69 yo F with PMHx of obesity, diabetes, ESRD on dialysis via Permcath, COPD, and CHF, on 2L oxygen at home, recent COVID-19+ and Staph aureus bacteremic, presenting to the ED via EMS from dialysis, only tolerated 1hr of dialysis today due to SOB and noted hypoxia with near syncopal episode. On exam sating 100% on 3L NC, coarse lung sounds throughout, nontoxic appearing, no LE edema or calf tenderness. Concern for near syncope/ hypotension causing symptoms vs CHF vs residual COVID-19 symptoms vs COPD exacerbation. Unlikely ACS/ PE Plan: EKG, labs, CXR, albuterol, reassess Medical Records Attestation: I reviewed the patient's medical records. Lab Data Attestation: I reviewed the patient's lab results. Result diagrams: 07/11/20 14:59 07/11/20 14:59 Labs: Lab Results 07/11/20 07/11/20 07/11/20 Range/Units 14:59 14:59 14:59 WBC 9.1 (4.8-10.8) X10*3/uL RBC 2.41 L (4.20-5.50) X10*6/uL Hgb 7.9 L (12.0-16.0) g/dl Hct 25.5 L (37-47) % MCV 105.8 H (80-98) fL MCH 32.8 (27.0-33.0) pg MCHC 31.0 (31.0-35.0) g/dl RDW 14.5 (11.0-16.0) % Plt Count 109 L (160-400) X10*3/uL MPV 12.0 (9.4-12.3) fL Immature Gran % (Auto) 0.4 (0.0-0.4) % Neut % (Auto) 87.0 H (45-73) % Lymph % (Auto) 6.7 L (20-40) % [place] % (Auto) 4.2 (2-11) % Eos % (Auto) 1.3 (0-4) % Baso % (Auto) 0.4 (0-2) % Lymph # (Auto) 0.6 L (1.2-4.9) X10*3/uL [place] # (Auto) 0.4 (0.1-1.2) X10*3/uL Eos # (Auto) 0.1 (0.0-0.4) X10*3/uL Baso # (Auto) 0.0 (0.0-0.2) X10*3/uL Abs Immat Gran (auto) 0.04 H (0.00-0.03) X10*3/uL Absolute Neuts (auto) 7.9 (2.0-8.3) X10*3/uL Absolute Nucleated RBC 0.000 (0.0-0.012) X10*3/uL Nucleated RBC % (auto) 0.0 (0.0-0.2) /100WBC Smear Tech's Comments VERIFIED PT (10.8-13.0) SEC INR (0.9-1.1) APTT (24.1-38.0) SEC Sodium 136 (135-145) mmol/L Potassium 3.0 L (3.3-5.1) mmol/L Chloride 101 (96-108) mmol/L Carbon Dioxide 29 (22-29) mmol/L Anion Gap 9 L (12-20) BUN 13 (9-16) mg/dL Creatinine 1.97 H (0.5-1.4) mg/dL Estim Creat Clear Calc 22.4 Estimated GFR 25 Random Glucose 177 H (60-115) mg/dL Lactic Acid (0.5-2.0) mmol/L Calcium 7.1 L D (8.4-10.2) mg/dL Magnesium 1.5 L (1.6-2.6) mg/dL Total Bilirubin 0.6 (0.0-1.0) mg/dL Direct Bilirubin 0.4 (0.0-0.5) mg/dL AST 32 H D (5-31) U/L ALT 18 (0-31) U/L Alkaline Phosphatase 158 H D (39-117) U/L Troponin I High Sens 59.7 H D (<3.5-17.0) ng/L B-Natriuretic Peptide 1706 H (<100) pg/mL Total Protein 7.2 (6.5-8.0) g/dL Albumin 1.8 L (3.5-5.0) g/dL Procalcitonin ng/mL COVID-19 ([facility]) (Negative) COVID-19 Clin Com 07/11/20 07/11/20 07/11/20 Range/Units 14:59 14:59 14:59 WBC (4.8-10.8) X10*3/uL RBC (4.20-5.50) X10*6/uL Hgb (12.0-16.0) g/dl Hct (37-47) % MCV (80-98) fL MCH (27.0-33.0) pg MCHC (31.0-35.0) g/dl RDW (11.0-16.0) % Plt Count (160-400) X10*3/uL MPV (9.4-12.3) fL Immature Gran % (Auto) (0.0-0.4) % Neut % (Auto) (45-73) % Lymph % (Auto) (20-40) % [place] % (Auto) (2-11) % Eos % (Auto) (0-4) % Baso % (Auto) (0-2) % Lymph # (Auto) (1.2-4.9) X10*3/uL [place] # (Auto) (0.1-1.2) X10*3/uL Eos # (Auto) (0.0-0.4) X10*3/uL Baso # (Auto) (0.0-0.2) X10*3/uL Abs Immat Gran (auto) (0.00-0.03) X10*3/uL Absolute Neuts (auto) (2.0-8.3) X10*3/uL Absolute Nucleated RBC (0.0-0.012) X10*3/uL Nucleated RBC % (auto) (0.0-0.2) /100WBC Smear Tech's Comments PT 13.9 H (10.8-13.0) SEC INR 1.2 H (0.9-1.1) APTT 29.5 (24.1-38.0) SEC Sodium (135-145) mmol/L Potassium (3.3-5.1) mmol/L Chloride (96-108) mmol/L Carbon Dioxide (22-29) mmol/L Anion Gap (12-20) BUN (9-16) mg/dL Creatinine (0.5-1.4) mg/dL Estim Creat Clear Calc Estimated GFR Random Glucose (60-115) mg/dL Lactic Acid 1.1 (0.5-2.0) mmol/L Calcium (8.4-10.2) mg/dL Magnesium (1.6-2.6) mg/dL Total Bilirubin (0.0-1.0) mg/dL Direct Bilirubin (0.0-0.5) mg/dL AST (5-31) U/L ALT (0-31) U/L Alkaline Phosphatase (39-117) U/L Troponin I High Sens (<3.5-17.0) ng/L B-Natriuretic Peptide (<100) pg/mL Total Protein (6.5-8.0) g/dL Albumin (3.5-5.0) g/dL Procalcitonin 20.67 ng/mL COVID-19 ([facility]ON) (Negative) COVID-19 Clin Com 07/11/20 Range/Units 15:34 WBC (4.8-10.8) X10*3/uL RBC (4.20-5.50) X10*6/uL Hgb (12.0-16.0) g/dl Hct (37-47) % MCV (80-98) fL MCH (27.0-33.0) pg MCHC (31.0-35.0) g/dl RDW (11.0-16.0) % Plt Count (160-400) X10*3/uL MPV (9.4-12.3) fL Immature Gran % (Auto) (0.0-0.4) % Neut % (Auto) (45-73) % Lymph % (Auto) (20-40) % [place] % (Auto) (2-11) % Eos % (Auto) (0-4) % Baso % (Auto) (0-2) % Lymph # (Auto) (1.2-4.9) X10*3/uL [place] # (Auto) (0.1-1.2) X10*3/uL Eos # (Auto) (0.0-0.4) X10*3/uL Baso # (Auto) (0.0-0.2) X10*3/uL Abs Immat Gran (auto) (0.00-0.03) X10*3/uL Absolute Neuts (auto) (2.0-8.3) X10*3/uL Absolute Nucleated RBC (0.0-0.012) X10*3/uL Nucleated RBC % (auto) (0.0-0.2) /100WBC Smear Tech's Comments PT (10.8-13.0) SEC INR (0.9-1.1) APTT (24.1-38.0) SEC Sodium (135-145) mmol/L Potassium (3.3-5.1) mmol/L Chloride (96-108) mmol/L Carbon Dioxide (22-29) mmol/L Anion Gap (12-20) BUN (9-16) mg/dL Creatinine (0.5-1.4) mg/dL Estim Creat Clear Calc Estimated GFR Random Glucose (60-115) mg/dL Lactic Acid (0.5-2.0) mmol/L Calcium (8.4-10.2) mg/dL Magnesium (1.6-2.6) mg/dL Total Bilirubin (0.0-1.0) mg/dL Direct Bilirubin (0.0-0.5) mg/dL AST (5-31) U/L ALT (0-31) U/L Alkaline Phosphatase (39-117) U/L Troponin I High Sens (<3.5-17.0) ng/L B-Natriuretic Peptide (<100) pg/mL Total Protein (6.5-8.0) g/dL Albumin (3.5-5.0) g/dL Procalcitonin ng/mL COVID-19 ([facility]ON) Negative (Negative) COVID-19 Clin Com See Note Discharge Plan Discharge Clinical Impression: Near syncope, Shortness of breath Instructions: Near Syncope (ED) Additional Instructions: your blood work was re-assuring today in the ED, however you need close follow up with your doctor. Make sure you obtain dialysis on as scheduled and do not miss any days. If you have weakness, shortness of breath, chest pain, fever or swelling return to the ED mckenzie an?lisis de jennifer fue reconfortante hoy en el servicio de urgencias, sin embargo, necesita un seguimiento cercano con mckenzie m?dico. Aseg?rese de recibir la di?lisis seg?n lo programado y no se pierda gwyn?n d?a. Si tiene debilidad, dificultad para respirar, dolor en el pecho, fiebre o hinchaz?n, vuelva al servicio de urgencias. Prescriptions: No Action atorvastatin 40 mg tablet 40 mg PO BEDTIME RF: 0 fluoxetine 20 mg/5 mL (4 mg/mL) solution 5 ml PO DAILY RF: 0 bumetanide 2 mg tablet 4 mg PO SUTUTHSA@0800,1700 RF: 0 clopidogrel 75 mg tablet 75 mg PO BEDTIME RF: 0 Hold Instructions: Resume on 06/08/20. isosorbide mononitrate 60 mg tablet extended release 24 hr 60 mg PO QAM RF: 0 metoprolol tartrate 25 mg tablet 25 mg PO BID RF: 0 cholecalciferol (vitamin D3) 50 mcg (2,000 unit) tablet 50 mcg PO QAM RF: 0 quetiapine 25 mg tablet 25 mg PO BEDTIME PRN (Reason: Insomnia) RF: 0 lorazepam 0.5 mg tablet 0.5 mg PO DAILY PRN (Reason: Agitation) RF: 0 Anoro Ellipta 62.5-25 mcg/actuation blister with device 1 puff inhalation DAILY RF: 0 Referrals: Jennifer Loya MD [Primary Care Provider] - 2 days Print Language: Japanese
[2020-07-11 14:30] VITALS: BP 142/71; PULSE 86; RESP 20; O2SAT 100
[2020-07-11 15:10] LABS: Basophils Percent Auto 0.4 % (0-2); Eosinophils Absolute Auto 0.1 X10*3/uL (0.0-0.4); Eosinophils Percent Auto 1.3 % (0-4); Hematocrit 25.5 % (37-47); Hemoglobin 7.9 g/dl (12.0-16.0); Imm Gran Abs Auto 0.04 X10*3/uL (0.00-0.03); Imm Gran Pct Auto 0.4 % (0.0-0.4); Lymphocytes Absolute Auto 0.6 X10*3/uL (1.2-4.9); Lymphocytes Percent Auto 6.7 % (20-40); MANUAL DIFF FLAG SCAN; Mean Corpuscular Hemoglobin 32.8 pg (27.0-33.0); Mean Corpuscular Volume 105.8 fL (80-98); Monocytes Absolute Auto 0.4 X10*3/uL (0.1-1.2); Monocytes Percent Auto 4.2 % (2-11); Neutrophils Absolute Auto 7.9 X10*3/uL (2.0-8.3); Platelet Count 109 X10*3/uL (160-400); Red Blood Count 2.41 X10*6/uL (4.20-5.50); Red Cell Distribution Width 14.5 % (11.0-16.0); SCAN SMEAR FLAG 1; White Blood Count 9.1 X10*3/uL (4.8-10.8)
[2020-07-11 15:18] LABS: INTERNATIONAL NORM RATIO 1.2 (0.9-1.1); Prothrombin Time 13.9 SEC (10.8-13.0)
[2020-07-11 15:21] LABS: Partial Thromboplastin Time 29.5 SEC (24.1-38.0)
[2020-07-11 15:28] LABS: Lactic Acid 1.1 mmol/L (0.5-2.0)
[2020-07-11 15:32] LABS: SLIDE REVIEW VERIFIED
[2020-07-11 15:37] LABS: Alanine Aminotransferase 18 U/L (0-31); Albumin Level 1.8 g/dL (3.5-5.0); Alkaline Phosphatase 158 U/L (39-117); Aspartate Amino Transferase 32 U/L (5-31); Bilirubin Direct 0.4 mg/dL (0.0-0.5); Bilirubin Total 0.6 mg/dL (0.0-1.0); Blood Urea Nitrogen 13 mg/dL (9-16); Calcium 7.1 mg/dL (8.4-10.2); Creatinine Clr Calc Pharmacy 22.4; Estimated Glomerular Filt Rate 25; Glucose Random 177 mg/dL (60-115); Magnesium 1.5 mg/dL (1.6-2.6); Total Protein 7.2 g/dL (6.5-8.0)
[2020-07-11 15:41] LABS: B Type Natriuretic Peptide 1706 pg/mL (<100); Troponin-I High Sensitivity 59.7 ng/L (<3.5-17.0)
[2020-07-11 15:49] LABS: Anion Gap 9 (12-20); Carbon Dioxide 29 mmol/L (22-29); Chloride 101 mmol/L (96-108); Sodium 136 mmol/L (135-145)
[2020-07-11 15:52] LABS: Procalcitonin 20.67 ng/mL
[2020-07-11 15:54] LABS: COVID-19 Test Negative (Negative); IDNOW Serial# 9DD0AD1C
[2020-07-11] MEDS: Potassium Chloride Packet 20 MEQ PACKET 40 MEQ PO ×2 (16:49→19:31)
[2020-07-11] MEDS: Magnesium Oxide 400 MG TABLET PO (16:49)
[2020-07-11 17:27] VITALS: BP 129/64; PULSE 80; RESP 18; TEMP 36.9; O2SAT 98
[2020-07-11] MEDS: Albuterol/Iprat 2.5/0.5MG 3 ML AMPUL.NEB INHALE (18:14)
[2020-07-11 18:29] LABS: Troponin-I High Sensitivity 51.2 ng/L (<3.5-17.0)
--- NOTE | 2020-07-11 19:25 | PC.NURSE ---
pt resting in stretcher in NAD. Pt alert and serbian speaking. respirations easy, n/l skin w/d. will continue to monitor pt. Pt medicated as per emar.
[2020-07-11] MEDS: Magnesium Sulfate/H2O 2 GM/50 ML PIGGYBACK IV (19:31)
--- NOTE | 2020-07-11 21:58 | PC.NURSE ---
SEVERAL ATTEMPTS FOR STRAIGHT CATH AND ATTEMPTS TO PUT PT ON BEDSIDE AND STOOL GETS IN BEDPAN UNABLE TO SEND SAMPLE TO LAB. PA AWARE.
--- NOTE | 2020-07-11 22:08 | PC.NURSE ---
family called for update. [phone]
--- NOTE | 2020-07-12 00:08 | PC.NURSE ---
PT AWAITING FOR EMS RIDE HOME. CONTACTED DAUGHTER AND SHE WILL BE THERE.
--- NOTE | 2020-07-12 00:58 | PC.NURSE ---
PT AWAITING FOR EMS RIDE HOME. AWAITING TO GIVE REPORT TO FLOOR.
--- NOTE | 2020-07-12 01:10 | PC.NURSE ---
EMS HERE FOR TRANSPORT TO HOME. CALLED KORTNEY DAUGHTER TO MAKE SURE SHE IS THERE.
== END 2020-07-12 01:21 | disposition home or self-care (01) ==
PROVIDERS: Physician Assistant; Emergency Provider Emergency Medicine; PCP Family Medicine
DX: R06.02 Shortness of breath (principal); R55 Syncope and collapse; E11.22 Type 2 diabetes mellitus with diabetic chronic kidney disease; I13.2 Hypertensive heart and chronic kidney disease with heart failure and with stage 5 chronic kidney disease, or end stage renal disease; I50.9 Heart failure, unspecified; N18.6 End stage renal disease; Z99.2 Dependence on renal dialysis; J44.9 Chronic obstructive pulmonary disease, unspecified; Z99.81 Dependence on supplemental oxygen; Z79.899 Other long term (current) drug therapy; Z86.16 Personal history of COVID-19; Z87.01 Personal history of pneumonia (recurrent); Z87.891 Personal history of nicotine dependence; Z96.0 Presence of urogenital implants
CPT/HCPCS: 36415; 71045; 80048; 80076; 83605; 83735; 83880; 84145; 84484; 85025; 85610; 85730; 87040; 87076; 87185; 87205; 87635; 93005; 99284; J3475

== ENCOUNTER 2020-07-12 15:54 | Inpatient (IN) | payer MEDICARE, MEDICAID, SELFPAY ==
[2020-07-12] VITALS (10 sets, daily range): BP systolic 92–178; BP diastolic 46–93; PULSE 72–114; RESP 14–42; TEMP 36.7–37.7; O2SAT 70–100; BMI 32.2; BMI 31.1
--- NOTE | ~2020-07-12 | CT_ITS ---
EXAMINATION: CT ABDOMEN AND PELVIS WITHOUT CONTRAST CLINICAL INFORMATION: Bacteremia. COMPARISON: CT abdomen and pelvis noncontrast 06/22/2020 and 06/11/2020. TECHNIQUE: Multidetector volumetric imaging was performed from the superior aspect of the liver through the pubic symphysis. Sagittal and coronal reformatted images were obtained on the technologist's workstation. No oral or intravenous contrast. This CT examination was performed using dose optimization techniques as appropriate, variously including the following: *Automated exposure control *Adjustment of mA and/or kV according to patient size (this includes techniques or standardized protocols for targeted exams where dose is matched to indication/reason for exam; i.e. extremities or head) *Use of iterative reconstruction technique DLP: 620 mGy-cm FINDINGS: LUNG BASES: Patchy bilateral airspace opacities lower zones slightly increased since 06/22/2020. Dependent atelectasis. Probable trace right effusion. LIVER, GALLBLADDER, AND BILIARY TREE: The liver is smooth in contour and homogeneous. There is been prior cholecystectomy. No intrahepatic biliary ductal dilatation. Visualized common duct unremarkable. PANCREAS: Atrophic, otherwise unremarkable. No pancreatic ductal dilatation or peripancreatic inflammatory changes. SPLEEN: 12.4 cm in sagittal dimension, homogeneous. Small splenule again noted left upper quadrant, 1 cm. ADRENAL GLANDS: Unremarkable. KIDNEYS AND URETERS: The kidneys are normal in size, shape, and attenuation. No hydronephrosis, hydroureter, or calculi seen. No perinephric stranding. BLADDER: Nondistended GASTROINTESTINAL TRACT: Gastrostomy feeding tube present in position. There is no bowel obstruction or inflammatory changes in the bowel or mesentery. The appendix is normal. There is focal 3 cm rounded contour to mid small bowel, series 4 image 253 without proximal or distal obstruction or inflammatory change. This may be related to peristalsis, although a non-obstructing bezoar cannot be excluded. There is no ascites or fluid collection. No pneumatosis or free air. ABDOMINAL WALL: Small fat-containing umbilical hernia under 2 cm. LYMPH NODES: No lymphadenopathy. VASCULAR: There is the left lateral abdomen similar to prior study. PELVIC VISCERA: Unremarkable. OSSEOUS STRUCTURES: Degenerative changes spine. Prior T12 vertebral augmentation and old L1 compression. Hardware bilateral hips. CT/CT abdomen pelvis wo con IMPRESSION: 1. No focal inflammatory changes in abdomen and pelvis. No bowel obstruction or ascites. 2. Prior cholecystectomy. No biliary ductal dilatation. 3. No hydronephrosis or calculi. 4. Patchy airspace opacities lower zones slightly increased since prior CT 06/22/2020. Probable small right effusion.
--- NOTE | ~2020-07-12 | XR_ITS ---
EXAMINATION: XR CHEST CLINICAL INFORMATION: CHF COMPARISON: Chest x-ray 07/11/2020 TECHNIQUE: Frontal view of the chest was obtained. FINDINGS: Stable cardiac silhouette. Unchanged orientation of left-sided tunneled jugular catheter with tip terminating within the right atrium. Low lung volumes. Patchy bilateral airspace disease is unchanged in prominence. No gross lobar consolidation. No pleural effusion or pneumothorax. Known left humeral head fracture. XR/XR chest 1V IMPRESSION: Stable low lung volumes with patchy bilateral airspace disease.
--- NOTE | 2020-07-12 16:05 | ED.GENADULT ---
HPI - General Adult General Chief complaint: General Medical Stated complaint: BLOOD INFECTION, NEEDS IV ANTIBIOTICS Time Seen by Provider: 07/12/20 16:04 Source: patient Mode of arrival: EMS Limitations: no limitations History of Present Illness HPI narrative: Patient was seen here on 07/11 for near-syncope episode during dialysis with shortness of breath workup was done which showed gram-negative bacteremia patient was called in back for IV antibiotic no UA was done at that time patient denies any fever been feeling weak since she went home yesterday and also has nausea no vomiting no fever no chills has chronic cough and mild shortness of breath patient is on 2 L oxygen at home with history of COPD and CHF on dialysis Related Data Home Medications Medication Instructions Recorded Confirmed atorvastatin 40 mg PO BEDTIME 04/24/20 07/12/20 cholecalciferol (vitamin D3) 50 mcg PO QAM 04/24/20 07/12/20 isosorbide mononitrate 60 mg PO QAM 04/24/20 07/12/20 metoprolol tartrate 25 mg PO BID 04/24/20 07/12/20 Allergies Allergy/AdvReac Type Severity Reaction Status Date / Time Penicillins Allergy Severe Anaphylaxis, Verified 05/13/20 12:33 hives acetaminophen [From TYLENOL] Allergy Unknown Unknown Verified 05/13/20 12:36 aspirin [ASPIRIN] Allergy Unknown rash, Verified 05/13/20 12:33 stomach upset diazepam [From VALIUM] Allergy Unknown RESP Verified 04/24/20 20:22 FAILURE penicillin V Allergy Unknown edema Verified 11/21/19 00:00 metformin [Metformin] AdvReac Mild DIARRHEA Verified 04/24/20 20:22 Review of Systems Review of Systems: Constitutional : No Weight loss, No Fever, No Chills ENT/Mouth : No sore throat, No Rhinorrhea Eyes: No Eye Pain, No Swelling Cardiovascular : No Chest Pain, no palpitations Respiratory : +Cough, No Sputum, + shortness of breath Gastrointestinal : +Nausea, No Vomiting, No Diarrhea, No abdominal Pain, no black stools Genitourinary : No Dysuria, No Urinary Frequency Musculoskeletal : No joint pain, No Myalgias, No Joint Swelling Skin : No Skin Lesions, No rash Neuro : + Weakness, No Numbness, No Dizziness, No Headache Psych : No Anxiety/Panic, No Depression Heme/Lymph: No Bruising, No Lymphadenopathy Endocrine : No Polyuria, No Polydipsia All other systems reviewed and are negative [facility] Past Medical History Medical History Anemia Anemia Bacteremia due to Staphylococcus Bipolar disorder Constipation COPD (chronic obstructive pulmonary disease) Diabetes Diastolic CHF Diastolic dysfunction Diverticulitis Dyspnea ESRD (end stage renal disease) ESRD (end stage renal disease) Hyperlipidemia Hypertension Pneumonia Renal failure Thrombocytopenia Social History Social History Household Members: Children Housing: Apartment Alcohol intake: never Smoking Status: Never smoker Tobacco Type: Cigarette Years Smoked: many years Smoked in Last 30 Days: No Use of substances other than those prescribed or required for medical reasons: No Advance Directives: Yes Advance Directives on File: Yes Advance Directives Date on File: 06/12/20 service: No Current occupational status: retired and disabled Physical Exam Vital Signs: Vital Signs: Last Vital Signs Temp 98.1 F 07/12/20 16:01 Pulse 74 07/12/20 18:02 Resp 22 H 07/12/20 18:02 BP 178/93 H 07/12/20 18:02 Pulse Ox 100 07/12/20 18:02 Body Mass Index 32.2 Appearance: Alert. Oriented X3. No acute distress. Eyes: Pupils equal, round and reactive to light. ENT: Pharynx normal. Neck: Normal inspection. Neck supple. CVS: Normal heart rate and rhythm. Pulses normal. Sydnie catheter on the left side Respiratory: No respiratory distress. Breath sounds normal. Abdomen: Soft and nontender. Bowel sounds are present, no mass palpable, no CVA tenderness Skin: Skin warm and dry. Normal skin color. Normal skin turgor. Extremities: No lower extremity edema. No calf tenderness Neuro: Oriented X 3. No motor deficit. No sensory deficit. Medical Decision Making MDM Narrative Medical decision making narrative: Patient has Gram-negative bacteremia urine showed UTI in the past she had E coli sensitive to cefazolin but not to quinolones will give her Rocephin IV and admit Lab Data Lab results reviewed: Yes I reviewed the patient's lab results. Result diagrams: 07/12/20 17:19 07/12/20 17:18 Labs: Lab Results 02/28/21 02/28/21 02/28/21 Range/Units 16:38 17:18 17:18 WBC (4.8-10.8) X10*3/uL RBC (4.20-5.50) X10*6/uL Hgb (12.0-16.0) g/dl Hct (37-47) % MCV (80-98) fL MCH (27.0-33.0) pg MCHC (31.0-35.0) g/dl RDW (11.0-16.0) % Plt Count (160-400) X10*3/uL MPV (9.4-12.3) fL Immature Gran % (Auto) (0.0-0.4) % Neut % (Auto) (45-73) % Lymph % (Auto) (20-40) % [place] % (Auto) (2-11) % Eos % (Auto) (0-4) % Baso % (Auto) (0-2) % Lymph # (Auto) (1.2-4.9) X10*3/uL [place] # (Auto) (0.1-1.2) X10*3/uL Eos # (Auto) (0.0-0.4) X10*3/uL Baso # (Auto) (0.0-0.2) X10*3/uL Abs Immat Gran (auto) (0.00-0.03) X10*3/uL Absolute Neuts (auto) (2.0-8.3) X10*3/uL Absolute Nucleated RBC (0.0-0.012) X10*3/uL Nucleated RBC % (auto) (0.0-0.2) /100WBC Smear Tech's Comments Sodium 134 L (135-145) mmol/L Potassium 3.4 (3.3-5.1) mmol/L Chloride 100 (96-108) mmol/L Carbon Dioxide 27 (22-29) mmol/L Anion Gap 10 L (12-20) BUN 27 H D (9-16) mg/dL Creatinine 2.94 H (0.5-1.4) mg/dL Estim Creat Clear Calc 17.4 Estimated GFR 16 Random Glucose 285 H D (60-115) mg/dL Lactic Acid 2.0 (0.5-2.0) mmol/L Calcium 7.5 L (8.4-10.2) mg/dL Total Bilirubin 0.4 (0.0-1.0) mg/dL Direct Bilirubin 0.2 (0.0-0.5) mg/dL AST 21 (5-31) U/L ALT 15 (0-31) U/L Alkaline Phosphatase 148 H (39-117) U/L Total Protein 6.8 (6.5-8.0) g/dL Albumin 1.9 L (3.5-5.0) g/dL Urine Color BRETT Urine Appearance CLOUDY Urine pH 5.5 (5.0-8.0) Ur Specific [place] 1.025 (1.005-1.025) Urine Protein 3+ H (NEG-TRACE) MG/DL Urine Glucose (UA) 100 H (NEG) MG/DL Urine Ketones 5 (NEG) MG/DL Urine Blood 3+ H (NEG) Urine Nitrite POS H (NEG) Ur Leukocyte Esterase 2+ H (NEG) Urine RBC 5-9 H (0) /HPF Urine WBC 50-75 H (0-4) /HPF Ur Squamous Epith Cells TRACE /LPF Urine Bacteria 3+ /LPF 07/12/20 Range/Units 17:19 WBC 7.6 (4.8-10.8) X10*3/uL RBC 2.34 L (4.20-5.50) X10*6/uL Hgb 7.7 L (12.0-16.0) g/dl Hct 24.9 L (37-47) % MCV 106.4 H (80-98) fL MCH 32.9 (27.0-33.0) pg MCHC 30.9 L (31.0-35.0) g/dl RDW 14.6 (11.0-16.0) % Plt Count 111 L (160-400) X10*3/uL MPV 12.2 (9.4-12.3) fL Immature Gran % (Auto) 0.7 H (0.0-0.4) % Neut % (Auto) 84.2 H (45-73) % Lymph % (Auto) 8.6 L (20-40) % [place] % (Auto) 6.4 (2-11) % Eos % (Auto) 0.0 (0-4) % Baso % (Auto) 0.1 (0-2) % Lymph # (Auto) 0.7 L (1.2-4.9) X10*3/uL [place] # (Auto) 0.5 (0.1-1.2) X10*3/uL Eos # (Auto) 0.0 (0.0-0.4) X10*3/uL Baso # (Auto) 0.0 (0.0-0.2) X10*3/uL Abs Immat Gran (auto) 0.05 H (0.00-0.03) X10*3/uL Absolute Neuts (auto) 6.4 (2.0-8.3) X10*3/uL Absolute Nucleated RBC 0.000 (0.0-0.012) X10*3/uL Nucleated RBC % (auto) 0.0 (0.0-0.2) /100WBC Smear Tech's Comments VERIFIED Sodium (135-145) mmol/L Potassium (3.3-5.1) mmol/L Chloride (96-108) mmol/L Carbon Dioxide (22-29) mmol/L Anion Gap (12-20) BUN (9-16) mg/dL Creatinine (0.5-1.4) mg/dL Estim Creat Clear Calc Estimated GFR Random Glucose (60-115) mg/dL Lactic Acid (0.5-2.0) mmol/L Calcium (8.4-10.2) mg/dL Total Bilirubin (0.0-1.0) mg/dL Direct Bilirubin (0.0-0.5) mg/dL AST (5-31) U/L ALT (0-31) U/L Alkaline Phosphatase (39-117) U/L Total Protein (6.5-8.0) g/dL Albumin (3.5-5.0) g/dL Urine Color Urine Appearance Urine pH (5.0-8.0) Ur Specific [place] (1.005-1.025) Urine Protein (NEG-TRACE) MG/DL Urine Glucose (UA) (NEG) MG/DL Urine Ketones (NEG) MG/DL Urine Blood (NEG) Urine Nitrite (NEG) Ur Leukocyte Esterase (NEG) Urine RBC (0) /HPF Urine WBC (0-4) /HPF Ur Squamous Epith Cells /LPF Urine Bacteria /LPF ECG Data Attestation: I personally reviewed and interpreted this ECG as follows: Interpretation: Normal sinus rhythm heart rate 76 beats per minute normal axis normal intervals no acute ST T wave changes no acute ischemia Discharge Plan Discharge Clinical Impression: Acute UTI, Bacteremia due to Gram-negative bacteria Patient Disposition: Admitted As Inpatient
[2020-07-12] MEDS: cefTRIAXone sodium 1 GM in 0.9 % Sodium Chloride 50 ML IV ×2 (16:39→21:45)
[2020-07-12 16:50] LABS: Appearance Urine CLOUDY; Color Urine AMBER; Glucose Urine UA 100 MG/DL (NEG); Leukocyte Esterase Urine 2+ (NEG); Nitrite Urine POS (NEG); PH 5.5 (5.0-8.0); Specific Gravity - Urine 1.025 (1.005-1.025); UACC Culture Trigger YES; Urine Blood 3+ (NEG); Urine Ketones 5 MG/DL (NEG); Urine Protein 3+ MG/DL (NEG-TRACE)
[2020-07-12 17:03] LABS: Bacteria Urine 3+ /LPF; Squamous Epithelial Cell Urine TRACE /LPF; WBC Urine 50-75 /HPF (0-4)
[2020-07-12 17:31] LABS: Basophils Percent Auto 0.1 % (0-2); Hematocrit 24.9 % (37-47); Hemoglobin 7.7 g/dl (12.0-16.0); Imm Gran Abs Auto 0.05 X10*3/uL (0.00-0.03); Imm Gran Pct Auto 0.7 % (0.0-0.4); Lymphocytes Absolute Auto 0.7 X10*3/uL (1.2-4.9); Lymphocytes Percent Auto 8.6 % (20-40); MANUAL DIFF FLAG SCAN; Mean Corpuscular HGB Conc 30.9 g/dl (31.0-35.0); Mean Corpuscular Hemoglobin 32.9 pg (27.0-33.0); Mean Corpuscular Volume 106.4 fL (80-98); Mean Platelet Volume 12.2 fL (9.4-12.3); Monocytes Absolute Auto 0.5 X10*3/uL (0.1-1.2); Monocytes Percent Auto 6.4 % (2-11); Neutrophils Absolute Auto 6.4 X10*3/uL (2.0-8.3); Neutrophils Percent Auto 84.2 % (45-73); Platelet Count 111 X10*3/uL (160-400); Red Blood Count 2.34 X10*6/uL (4.20-5.50); Red Cell Distribution Width 14.6 % (11.0-16.0); SCAN SMEAR FLAG 1; White Blood Count 7.6 X10*3/uL (4.8-10.8)
[2020-07-12 17:49] LABS: SLIDE REVIEW VERIFIED
[2020-07-12 17:53] LABS: Alanine Aminotransferase 15 U/L (0-31); Albumin Level 1.9 g/dL (3.5-5.0); Alkaline Phosphatase 148 U/L (39-117); Anion Gap 10 (12-20); Aspartate Amino Transferase 21 U/L (5-31); Bilirubin Direct 0.2 mg/dL (0.0-0.5); Bilirubin Total 0.4 mg/dL (0.0-1.0); Blood Urea Nitrogen 27 mg/dL (9-16); Calcium 7.5 mg/dL (8.4-10.2); Carbon Dioxide 27 mmol/L (22-29); Chloride 100 mmol/L (96-108); Creatinine Clr Calc Pharmacy 17.4; Estimated Glomerular Filt Rate 16; Glucose Random 285 mg/dL (60-115); Potassium 3.4 mmol/L (3.3-5.1); Sodium 134 mmol/L (135-145); Total Protein 6.8 g/dL (6.5-8.0)
--- NOTE | 2020-07-12 18:34 | ECG_ITS ---
Test Reason : GEN MEDICAL Blood Pressure : / mmHG Vent. Rate : 076 BPM Atrial Rate : 076 BPM P-R Int : 120 ms QRS Dur : 088 ms QT Int : 394 ms P-R-T Axes : 041 044 007 degrees QTc Int : 443 ms Normal sinus rhythm Nonspecific ST abnormality Abnormal ECG When compared to the previous EKG of 11 jul 2020, no significant changes noted. Referred By: Tan Cano Electronically Signed By:PARKER FLOWER
--- NOTE | 2020-07-12 21:10 | P.HPHOSP_ITS ---
History of Present Illness Date of Service: 07/12/20 Chief Complaint: Bacteremia History is obtained with the help of business data analyst This is a 69-year-old female with past medical history of CHF, hypertension, diabetes, COPD, anemia, ESRD on dialysis who presents to the hospital initially on 07/11 with complaints of near syncopal episode while undergoing dialysis. At that time she was evaluated in the ED labs were taken and patient was sent home. Her blood cultures did come back positive for Gram-negative rods and patient was called back to come to the ED. She now complaints of diarrhea, urinary frequency urgency and dysuria. Patient appears short of breath, when I ask her about it she said this is chron ic and has not worsened. She has a chronic cough that has not worsened, sputum production that is yellow in color, she denies any fever, she has chills, denies any nausea or vomiting. Denies any lower extremity edema. To the ED hemodynamically stable except for heart rate of 114 All labs are significant for WBC count of 7.6, hemoglobin of 7.7 which is around her usual baseline, BUN of 30, creatinine of 3.35, albumin of 1.9, UA that is positive for nitrites, leukocyte Estrace, WBC, chest x-ray shows stable low lung volumes with patchy bilateral airspace disease Review of Systems Review of Systems: Yes all other systems are reviewed and are negative [facility] Medical History (Updated 07/13/20 @ 05:43 by Raji Sanders MD) Anemia Anemia Bacteremia due to Staphylococcus Bipolar disorder Constipation COPD (chronic obstructive pulmonary disease) Diabetes Diastolic CHF Diastolic dysfunction Diverticulitis Dyspnea ESRD (end stage renal disease) ESRD (end stage renal disease) Hyperlipidemia Hypertension Pneumonia Renal failure Thrombocytopenia Social History Household Members: Children Household Members Other:: daughter Housing: Apartment Do you presently have visiting nurse or other home services: No Alcohol intake: never Smoking Status: Former smoker Tobacco Type: Cigarette Years Smoked: many years Smoked in Last 30 Days: No Use of substances other than those prescribed or required for medical reasons: No Have you been hit, kicked, punched, or otherwise hurt by someone within the past year? If so, by whom?: No Do you feel safe in your current relationship?: No Current Relationship Is there a partner from a previous relationship who is making you feel unsafe now?: No Are you made to feel afraid or neglected: No Advance Directives: Yes Advance Directives on File: Yes Advance Directives Date on File: 06/12/20 Do you have thoughts of harming others: None Do you have a plan to hurt others: No Plan Recently lost weight without trying: No service: No Current occupational status: retired and disabled Meds Allergies Allergy/AdvReac Type Severity Reaction Status Date / Time Penicillins Allergy Severe Anaphylaxis, Verified 05/13/20 12:33 hives acetaminophen [From TYLENOL] Allergy Unknown Unknown Verified 05/13/20 12:36 aspirin [ASPIRIN] Allergy Unknown rash, Verified 05/13/20 12:33 stomach upset diazepam [From VALIUM] Allergy Unknown RESP Verified 04/24/20 20:22 FAILURE penicillin V Allergy Unknown edema Verified 11/21/19 00:00 metformin [Metformin] AdvReac Mild DIARRHEA Verified 04/24/20 20:22 Active Medications: Current Medications Generic Name Dose Route Start Last Admin Trade Name Freq PRN Reason Stop Dose Admin Atorvastatin Calcium 40 mg 07/12/20 21:00 Atorvastatin Calcium 40 Mg Tablet PO BEDTIME [facility] Docusate Sodium 100 mg 07/12/20 20:26 Docusate Sodium 100 Mg Capsule PO DAILY PRN Constipation Heparin Sodium (Porcine) 5,000 unit 07/12/20 20:30 Heparin Sodium,Porcine 5,000 Unit/Ml Vial SUBCUT Q12H [facility] Ceftriaxone Sodium 1 gm/ 50 mls @ 100 mls/hr 07/12/20 20:30 Sodium Chloride IV Q24H [facility] Isosorbide Mononitrate 60 mg 07/13/20 09:00 Isosorbide Mononitrate 60 Mg Tab.Er.24h PO DAILY [facility] Protocol Metoprolol Tartrate 25 mg 07/12/20 21:00 Metoprolol Tartrate 25 Mg Tablet PO BID [facility] Protocol Ondansetron HCl 4 mg 07/12/20 20:26 Ondansetron Hcl 4 Mg/2 Ml Vial IVPUSH Q8H PRN Nausea and Vomiting Sodium Chloride 3 ml 07/13/20 00:00 0.9 % Sodium Chloride Flush 3 Ml Syringe IVFLUSH QSHIFT [facility] Vitamin D 50 mcg 07/13/20 09:00 Cholecalciferol (Vitamin D3) 25 Mcg Tablet PO DAILY [facility] Home Medications Medication Instructions Recorded Confirmed Last Taken Type atorvastatin 40 mg PO BEDTIME 04/24/20 07/12/20 Unknown History cholecalciferol (vitamin D3) 50 mcg PO QAM 04/24/20 07/12/20 Unknown History isosorbide mononitrate 60 mg PO QAM 04/24/20 07/12/20 Unknown History metoprolol tartrate 25 mg PO BID 04/24/20 07/12/20 Unknown History Physical Exam Vital Signs and Narrative: Vital Signs: Last Vital Signs Temp 98.4 F 07/12/20 19:23 Pulse 80 07/12/20 19:23 Resp 14 07/12/20 19:23 BP 158/67 H 07/12/20 19:23 Pulse Ox 100 07/12/20 19:23 Body Mass Index 32.2 Const: General: cooperative and no acute distress Or ientation/consciousness: patient oriented x3 Eyes: General: appearance normal, both eyes and all related structures Resp: Effort & Inspection: abnormal respiratory pattern, Actively coughing, labored and tachypneic Auscultation: crackles Cardio: Rate: regular rate Rhythm: regular rhythm GI: Palpation (GI): Soft to palpation Auscultation: normal bowel sounds Neuro: General: patient oriented x3 Cognition (Neuro): normal cognition Extrem: Other: 2+ pedal edema bilaterally General: Yes normal to inspection Psych: Appearance: grossly normal Results Labs CBC and Chem 7: 07/12/20 17:19 07/13/20 04:25 Labs: Laboratory Results - last 24 hr 07/12/20 07/12/20 07/12/20 16:38 17:18 17:18 MCV MCH MCHC RDW Plt Count MPV Immature Gran % (Auto) Neut % (Auto) Lymph % (Auto) [place] % (Auto) Eos % (Auto) Baso % (Auto) Lymph # (Auto) [place] # (Auto) Eos # (Auto) Baso # (Auto) Abs Immat Gran (auto) Absolute Neuts (auto) Absolute Nucleated RBC Nucleated RBC % (auto) Smear Tech's Comments Anion Gap 10 L Estim Creat Clear Calc 17.4 Estimated GFR 16 Random Glucose 285 H D Lactic Acid 2.0 Calcium 7.5 L Total Bilirubin 0.4 Direct Bilirubin 0.2 AST 21 ALT 15 Alkaline Phosphatase 148 H Total Protein 6.8 Albumin 1.9 L Urine Color BRETT Urine Appearance CLOUDY Urine pH 5.5 Ur Specific [place] 1.025 Urine Protein 3+ H Urine Glucose (UA) 100 H Urine Ketones 5 Urine Blood 3+ H Urine Nitrite POS H Ur Leukocyte Esterase 2+ H Urine RBC 5-9 H Urine WBC 50-75 H Ur Squamous Epith Cells TRACE Urine Bacteria 3+ 07/12/20 17:19 MCV 106.4 H MCH 32.9 MCHC 30.9 L RDW 14.6 Plt Count 111 L MPV 12.2 Immature Gran % (Auto) 0.7 H Neut % (Auto) 84.2 H Lymph % (Auto) 8.6 L [place] % (Auto) 6.4 Eos % (Auto) 0.0 Baso % (Auto) 0.1 Lymph # (Auto) 0.7 L [place] # (Auto) 0.5 Eos # (Auto) 0.0 Baso # (Auto) 0.0 Abs Immat Gran (auto) 0.05 H Absolute Neuts (auto) 6.4 Absolute Nucleated RBC 0.000 Nucleated RBC % (auto) 0.0 Smear Tech's Comments VERIFIED Anion Gap Estim Creat Clear Calc Estimated GFR Random Glucose Lactic Acid Calcium Total Bilirubin Direct Bilirubin AST ALT Alkaline Phosphatase Total Protein Albumin Urine Color Urine Appearance Urine pH Ur Specific [place] Urine Protein Urine Glucose (UA) Urine Ketones Urine Blood Urine Nitrite Ur Leukocyte Esterase Urine RBC Urine WBC Ur Squamous Epith Cells Urine Bacteria Assessment and Plan (1) Acute UTI: Status: Acute (2) Bacteremia due to Gram-negative bacteria: Status: Acute (3) Diastolic CHF: Status: Inactive (4) ESRD (end stage renal disease): Status: Inactive This is a 69-year-old female with an extensive past medical history who presents to the hospital with bacteremia # bacteremia - most likely secondary to UTI - cultures growing Gram-negative bacteria with history of E coli sensitive to ceftriaxone - no evidence of sepsis at this time, patient afebrile, no leukocytosis, tachycardia may be secondary to shortness of breath - will start on ceftriaxone - repeat cultures # acute UTI - UA positive for leukocyte esterase, nitrites, WBC - blood cultures are showing Gram-negative rods most likely E coli - will start on ceftriaxone - follow final cultures # dyspnea secondary to CHF exacerbation - less likely to be PE, versus pneumonia less likely - patient had an extensive stay in the hospital in May after being managed for CHF exacerbation - she also has a history of COVID pneumonia infection within the past 2 months the COVID PCR negative - afebrile, no leukocytosis - although patient did have dialysis on 07/11 it was cut short due to her near syncopal episode therefore she is most likely volume overloaded Plan: - received 100 mg of Lasix in the ED( patient oliguric not completely anuric) - per last discharge documents patient is on Bumex 2 mg alternating with 4 mg on Monday and - will monitor I&O, low-sodium diet/dialysis diet - consult Nephrology for stat dialysis in a.m. - will add BNP for baseline - will hold off on consulting cardiology as this is most likely due to inadequate dialysis # ESRD on dialysis - Nephrology consulted for dialysis # hypertension - bp is low - will hold imdur DVT prophylaxis: Heparin subQ
[2020-07-12] MEDS: Heparin Sodium,Porcine 5,000 UNIT/ML VIAL 5000 UNIT SUBCUT (21:46)
[2020-07-12] MEDS: Furosemide 100 MG/10 ML VIAL IVPUSH (22:24)
--- NOTE | 2020-07-12 22:43 | PC.NURSE ---
At 2019, pt vomited x1 after eating sandwich and took off nc. pt desat at 70% at room air. cleaned and changed pt. o2 sat rechecked. via nc at 4 l. o2 at 79% . NRB applied. o2 sat maintained for 95% at 2124. call rt for assessment. rt at bedside to assess pt. pt crackle lung sound throughout. per md, lasix 100 mg ivp and chest x-ray obtained. per pt, uses cpap for hs for yola. pt off nrb nc applied at 10 l. o2 sat 94%. per md. ventri mask applied. setting at 12L/. 50% O2 AT 90%. Will be admitted.
[2020-07-13] VITALS (11 sets, daily range): BP systolic 90–146; BP diastolic 41–71; PULSE 82–114; RESP 18–20; TEMP 36–36.8; O2SAT 92–97; BMI 31.1
[2020-07-13] MEDS: 0.9 % Sodium Chloride Flush 3 ML SYRINGE IVFLUSH ×3 (00:01→15:20)
[2020-07-13 05:09] LABS: Anion Gap 13 (12-20); Blood Urea Nitrogen 30 mg/dL (9-16); Calcium 7.6 mg/dL (8.4-10.2); Carbon Dioxide 23 mmol/L (22-29); Chloride 103 mmol/L (96-108); Estimated Glomerular Filt Rate 14; Glucose Random 135 mg/dL (60-115); Potassium 3.4 mmol/L (3.3-5.1); Sodium 136 mmol/L (135-145)
[2020-07-13 06:43] LABS: Hematocrit 23.6 % (37-47); Hemoglobin 7.5 g/dl (12.0-16.0); Mean Corpuscular HGB Conc 31.8 g/dl (31.0-35.0); Mean Platelet Volume 12.5 fL (9.4-12.3); NRBC Pct Auto 0.1 /100WBC (0.0-0.2); Platelet Count 102 X10*3/uL (160-400); Red Blood Count 2.27 X10*6/uL (4.20-5.50); Red Cell Distribution Width 14.4 % (11.0-16.0)
[2020-07-13 07:11] LABS: B Type Natriuretic Peptide 2447 pg/mL (<100)
[2020-07-13 07:12] LABS: WBC ABN SCTR FOR CBC 1
[2020-07-13 07:46] LABS: Band Neutrophils Percent 18 % (3-5); Lymphocytes Percent Manual 2 % (20-40); Metamyelocytes Percent 1 %; Monocytes Percent Manual 4 % (2-11); Neutrophils Percent Manual 75 % (45-73)
[2020-07-13 07:47] LABS: Burr Cells 1+; Hypochromasia 2+; Polychromasia 1+; Toxic Vacuolation PRESENT
[2020-07-13 07:48] LABS: RBC Morphology NOTED
[2020-07-13 07:49] LABS: Platelet Estimate DECREASED (NORMAL); Platelet Morphology Comment NORMAL
[2020-07-13 07:51] LABS: Lymphocytes Absolute Manual 0.4 X10*3/uL (0.6-4.8); Metamyelocytes Absolute 0.2 X10*3/uL; Monocytes Absolute Manual 0.8 X10*3/uL (0.0-1.2); Neutrophils Absolute Manual 19.3 X10*3/uL (2.2-7.9); White Blood Count 20.8 X10*3/uL (4.8-10.8)
--- NOTE | 2020-07-13 09:13 | HO.PM.IMPN ---
Subjective Subjective Date of Service: 07/13/20 <Lorene Sumner NP - Last Filed: 07/13/20 17:31> 07/13/20 <Gaston Corrales MD - Last Filed: 07/13/20 20:17> Interval History: Follow up for Syncope at dialysis. Better today, no further episodes. Sitting up eating breakfast <Lorene Sumner NP - Last Filed: 07/13/20 17:31> Physical Exam Vital Signs: Vital Signs: Last Vital Signs Temp 98.3 F 07/13/20 07:56 Pulse 82 07/13/20 07:56 Resp 20 07/13/20 07:56 BP 98/41 L 07/13/20 08:10 Pulse Ox 92 07/13/20 08:15 Body Mass Index 31.1 <Lorene Sumner NP - Last Filed: 07/13/20 17:31> Appearing in no acute distress head is normocephalic atraumatic eyes pupils are PERRLA sclera is anicteric mouth throat mucous membranes are intact and moist lung sounds are clear to auscultation heart regular rate rhythm positive bowel sounds, abdomen is soft, nontender neuro patient is alert x3, no focal deficits <Lorene Sumner NP - Last Filed: 07/13/20 17:31> Objective Data Current Medications Generic Name Dose Route Start Last Admin Trade Name Freq PRN Reason Stop Dose Admin Atorvastatin Calcium 40 mg 07/12/20 21:00 07/12/20 21:46 Atorvastatin Calcium 40 Mg Tablet PO Not Given BEDTIME OPAL Docusate Sodium 100 mg 07/12/20 20:26 Docusate Sodium 100 Mg Capsule PO DAILY PRN Constipation Heparin Sodium (Porcine) 5,000 unit 07/12/20 20:30 07/12/20 21:46 Heparin Sodium,Porcine 5,000 Unit/Ml Vial SUBCUT 5,000 unit Q12H OPAL Administration Ceftriaxone Sodium 1 gm/ 50 mls @ 100 mls/hr 07/12/20 20:30 07/12/20 22:15 Sodium Chloride IV Infused Q24H OPAL Infusion Metoprolol Tartrate 25 mg 07/12/20 21:00 07/12/20 21:46 Metoprolol Tartrate 25 Mg Tablet PO Not Given BID OPAL Protocol Ondansetron HCl 4 mg 07/12/20 20:26 Ondansetron Hcl 4 Mg/2 Ml Vial IVPUSH Q8H PRN Nausea and Vomiting Sodium Chloride 3 ml 07/13/20 00:00 07/13/20 00:01 0.9 % Sodium Chloride Flush 3 Ml Syringe IVFLUSH 3 ml QSHIFT OPAL Administration Vitamin D 50 mcg 07/13/20 09:00 Cholecalciferol (Vitamin D3) 25 Mcg Tablet PO DAILY OPAL <Lorene Sumner NP - Last Filed: 07/13/20 17:31> Labs CBC & Chem 7: : 07/13/20 06:13 07/13/20 04:25 <Lorene Sumner NP - Last Filed: 07/13/20 17:31> Assessment and Plan (1) Acute UTI: Status: Acute <Lorene Sumner NP - Last Filed: 07/13/20 17:31> (2) Bacteremia due to Gram-negative bacteria: Status: Acute <Lorene Sumner NP - Last Filed: 07/13/20 17:31> (3) Diastolic CHF: Status: Inactive <Loerne Sumner NP - Last Filed: 07/13/20 17:31> (4) ESRD (end stage renal disease): Status: Inactive <Lorene Sumner NP - Last Filed: 07/13/20 17:31> Assessment and Plan: 69-year-old angolan speaking female with an extensive past medical history who presents to the hospital with bacteremia and near syncopal episode while at dialysis # Bacteremia- Secondary to UTI - cultures growing Gram-negative bacteria with history of E coli sensitive to ceftriaxone - continue ceftriaxone - repeat cultures #Leukocytosis. Secondary to UTI # Dyspnea secondary to CHF exacerbation-Dialysis on 07/11 cut short due to near syncope. Received 100 mg of Lasix in the ED (patient oliguric not completely anuric) - will monitor I&O, low-sodium diet/dialysis diet - BNP 2447 Likely from volume overload, needs dialysis - Low BP, consider restarting bumex after dialysis # ESRD on dialysis - Nephrology consulted for dialysis tommorrow. # Hypertension-Low BP - Hold Isosorbide #Anemia. related to chronic renal disease, no bleeding - Follow HH Attending Dr. Corrales <Lorene Sumner NP - Last Filed: 07/13/20 17:31>
[2020-07-13] MEDS: Cholecalciferol (Vitamin D3) 25 MCG TABLET 50 MCG PO (09:50)
[2020-07-13] MEDS: Heparin Sodium,Porcine 5,000 UNIT/ML VIAL 5000 UNIT SUBCUT ×2 (09:50→20:45)
--- NOTE | 2020-07-13 10:55 | P.CDIC_ITS ---
CDI Concurrent Query Service Date: 07/13/20 Documentation Clarification: Please clarify if you are treating a proba ble/suspected/likely or confirmed: Acute respiratory failure, txt, resolved, poa, not treating Please specify if known Provider Response: Acute Respiratory Failure PLEASE DO NOT DELETE/MODIFY EXISTING CONTENT Additional information is needed in order to code to the highest accuracy and appropriate Severity of Illness (SOI). Please clarify the information noted below in your progress notes and discharge summary. Risk Factors/Clinical Indicators/Treatments Ed: respiratory distress, desaturating to low 70's, vomited, abnormal respiratory pattern, labored breathing, crackles, placed on 3 liters oxygen. RR 22 42 22 pulse ox 91 HR 102 CHF, VÍCTOR, COPD CDS: Fay Carter CCS, CDIS Contact Number: [phone] Please Review the information above and exercise your independent professional judgment in responding to the query. If you concur, pleas document in the PROGRESS NOTES and DISCHARGE SUMMARY. If you do not agree with the query, please document in the query above. THIS QUERY IS PART OF THE PERMANENT MEDICAL RECORD
--- NOTE | 2020-07-13 13:41 | CONS_ITS ---
DATE OF SERVICE: 07/13/2020 REASON FOR CONSULTATION: I was called to see the patient to assist in the management of patient dialysis requirements. HISTORY OF PRESENT ILLNESS: To summarize, Liliam is well known to us. She is a 69-year-old woman with history of ESRD, on maintenance hemodialysis. She underwent hemodialysis on Monday, which was initially uneventful. At the end of the treatment, she developed shortness of breath and had low oxygen saturation. She was subsequently transferred to the hospital. In the hospital, she received a dose of Lasix. The blood cultures were positive for E coli and she is currently being treated for urosepsis. She is due for dialysis on Monday and hence this consultation. PAST MEDICAL HISTORY: Ongoing medical problems include history of ESRD, on maintenance hemodialysis at [facility], obesity, diabetes mellitus, hypertension, history of bipolar disorder, COPD, diastolic dysfunction, hyperlipidemia, thrombocytopenia, anemia. SOCIAL HISTORY: Lives with the children. No history of smoking at present. History of smoking in the past. ALLERGIES: SHE IS ALLERGIC TO PENICILLIN, ASPIRIN, DIAZEPAM, METFORMIN. MEDICATIONS: Active medications include Lipitor, Colace, heparin, ceftriaxone, isosorbide, metoprolol, Zofran, vitamin D. Home medications include atorvastatin, vitamin D3, isosorbide, metoprolol. REVIEW OF SYSTEMS: Reveals shortness of breath, which has improved. No chest pain, nausea, or vomiting. No abdominal pain, diarrhea, or constipation. No urinary symptoms. No fever at present. All other systems were reviewed. PHYSICAL EXAMINATION: GENERAL: Liliam is an elderly woman. She is obese, comfortable, not in any distress. NECK: Supple. No JVD. Mucosa is moist. LUNGS: Bilateral rhonchi. HEART: S1, S2 heard. No gallop. ABDOMEN: Obese, soft, nontender. EXTREMITIES: Trace edema. No rash. No clubbing. She has a PermCath on the left side of the chest. Exit site is clean. VITAL SIGNS: Blood pressure today was 90/50, pulse 86. She is afebrile. LABORATORY DATA: Blood culture was positive for E coli. WBC 20.8, hemoglobin 7.5, platelets 102,000. Chest x-ray from yesterday showed low lung volumes with airspace disease. No definite CHF. Sodium 136, potassium 3.4, BUN 30, creatinine 3.35, calcium 7.6. IMPRESSION: 69-year-old woman with end-stage renal disease, admitted with urosepsis. 1. From a renal standpoint, Liliam is well dialyzed. No signs or symptoms of uremia. I will arrange for dialysis tomorrow and keep her on a Monday and schedule. We will remove fluid as tolerated. 2. Hypotension. This may be in the setting of sepsis. 3. Escherichia coli sepsis. Agree with antibiotic coverage. 4. Severe anemia. She may need blood transfusion. We will restart Epogen as per protocol. We will follow her along with the team. Javon Lopez MD BPA/MODL / [phone]
--- NOTE | 2020-07-13 14:56 | MHC.CLN ---
RE: CONSULT RECOMMEND 1500DM 2GM NA LOW PHOS, LOW K DIET PER RENAL DIET WILL PROMOTE SLOW WT LOSS WILL START GLUCERNA AND BREANNA TO INCREASE KCALS AND PROMOTE WOUND HEALING
[2020-07-13] MEDS: ondansetron HCL 4 MG/2 ML VIAL IVPUSH (15:17)
--- NOTE | 2020-07-13 15:39 | MHC.CM.PN ---
PATIENT LIVES WITH ONE OF HER DAUGHTERS/HCP. DAUGHTER IS ALSO A CPA FOR PATIENT. [employer] OFFERS DAY AND NIGHT ENAMEL SHADER SERVICES, WHICH FAMILY AND PATIENT FEEL IS SUFFICIENT. THERE IS A MIGUELINA LIFT IN THE HOME, AND A WHEEL CHAIR FOR MOBILIZATION. NO VNA SERVICES. IMM DISCUSSED WITH DAUGHTER KORTNEY @ [phone], AN ORIGINAL IS NOW IN THE ROOM TO RETURN HOME WITH PATIENT IMM 07/13 COPY IN CHART. HCP ON FILE AND VERIFIED
[2020-07-13] MEDS: Metoclopramide HCl 10 MG/2 ML VIAL 5 MG IVPUSH (17:51)
[2020-07-13] MEDS: guaiFENesin DM 100/10/5 ML 5 ML SYRUP PO (18:15)
[2020-07-14] VITALS (10 sets, daily range): BP systolic 85–131; BP diastolic 50–75; PULSE 63–95; RESP 18–24; TEMP 36–36.8; O2SAT 88–100
[2020-07-14] MEDS: Metoclopramide HCl 5 MG TABLET PO (02:16)
[2020-07-14] MEDS: oxyCODONE HCl Immed Release 5 MG TABLET PO (02:44)
[2020-07-14 06:04] LABS: Basophils Percent Auto 0.2 % (0-2); Eosinophils Absolute Auto 0.1 X10*3/uL (0.0-0.4); Eosinophils Percent Auto 0.8 % (0-4); Hematocrit 28.2 % (37-47); Hemoglobin 8.9 g/dl (12.0-16.0); Imm Gran Abs Auto 0.18 X10*3/uL (0.00-0.03); Imm Gran Pct Auto 1.5 % (0.0-0.4); Lymphocytes Absolute Auto 0.5 X10*3/uL (1.2-4.9); Lymphocytes Percent Auto 4.3 % (20-40); MANUAL DIFF FLAG SCAN; Mean Corpuscular HGB Conc 31.6 g/dl (31.0-35.0); Mean Corpuscular Hemoglobin 32.8 pg (27.0-33.0); Mean Corpuscular Volume 104.1 fL (80-98); Mean Platelet Volume 12.3 fL (9.4-12.3); Monocytes Absolute Auto 0.3 X10*3/uL (0.1-1.2); Monocytes Percent Auto 2.9 % (2-11); NRBC Pct Auto 0.3 /100WBC (0.0-0.2); Neutrophils Absolute Auto 10.6 X10*3/uL (2.0-8.3); Neutrophils Percent Auto 90.3 % (45-73); Red Blood Count 2.71 X10*6/uL (4.20-5.50); Red Cell Distribution Width 14.6 % (11.0-16.0); SCAN SMEAR FLAG 1; White Blood Count 11.7 X10*3/uL (4.8-10.8)
[2020-07-14 06:23] LABS: Platelet Count 90 X10*3/uL (160-400); SLIDE REVIEW VERIFIED
[2020-07-14 06:24] LABS: Anion Gap 14 (12-20); Blood Urea Nitrogen 39 mg/dL (9-16); Calcium 8.3 mg/dL (8.4-10.2); Carbon Dioxide 25 mmol/L (22-29); Chloride 99 mmol/L (96-108); Estimated Glomerular Filt Rate 12; Glucose Random 127 mg/dL (60-115); Potassium 4.2 mmol/L (3.3-5.1); Sodium 134 mmol/L (135-145)
[2020-07-14 06:27] LABS: B Type Natriuretic Peptide 1657 pg/mL (<100)
--- NOTE | 2020-07-14 08:08 | HO.PM.IMPN ---
Subjective Subjective Date of Service: 07/14/20 <Lorene Sumner NP - Last Filed: 07/14/20 17:22> 07/14/20 <Gaston Corrales MD - Last Filed: 07/14/20 17:39> Interval History: Follow up for Syncope at dialysis. Had vomiting episode last night, better today. no further episodes. <Lorene Sumner NP - Last Filed: 07/14/20 17:22> Physical Exam Vital Signs: Vital Signs: Last Vital Signs Temp 96.8 F 07/14/20 07:13 Pulse 95 07/14/20 07:13 Resp 18 07/14/20 07:13 BP 114/62 07/14/20 07:13 Pulse Ox 99 07/14/20 07:13 Body Mass Index 31.1 <Lorene Sumner NP - Last Filed: 07/14/20 17:22> Appearing in no acute distress head is normocephalic atraumatic lung sounds are clear to auscultation heart regular rate rhythm, clear S1, S2 positive bowel sounds, abdomen is soft, nontender neuro patient is alert x3, no focal deficits <Lorene Sumner NP - Last Filed: 07/14/20 17:22> Objective Data Current Medications Generic Name Dose Route Start Last Admin Trade Name Freq PRN Reason Stop Dose Admin Atorvastatin Calcium 40 mg 07/12/20 21:00 07/13/20 20:50 Atorvastatin Calcium 40 Mg Tablet PO Not Given BEDTIME OPAL Cefuroxime Axetil 500 mg 07/13/20 23:00 07/13/20 23:18 Cefuroxime Axetil 500 Mg Tablet PO 500 mg Q12H OPAL Administration Docusate Sodium 100 mg 07/12/20 20:26 Docusate Sodium 100 Mg Capsule PO DAILY PRN Constipation Guaifenesin/Dextromethorphan 5 ml 07/13/20 10:06 07/13/20 18:15 Guaifenesin Dm 100/10/5 Ml 5 Ml Syrup PO 5 ml Q4H PRN Administration Cough Heparin Sodium (Porcine) 5,000 unit 07/12/20 20:30 07/13/20 20:45 Heparin Sodium,Porcine 5,000 Unit/Ml Vial SUBCUT 5,000 unit Q12H OPAL Administration Metoprolol Tartrate 25 mg 07/12/20 21:00 07/13/20 20:50 Metoprolol Tartrate 25 Mg Tablet PO Not Given BID [facility] Protocol Ondansetron HCl 4 mg 07/12/20 20:26 07/13/20 15:17 Ondansetron Hcl 4 Mg/2 Ml Vial IVPUSH 4 mg Q8H PRN Administration Nausea and Vomiting Sodium Chloride 3 ml 07/13/20 00:00 07/13/20 23:18 0.9 % Sodium Chloride Flush 3 Ml Syringe IVFLUSH Not Given QSHIFT [facility] Vitamin D 50 mcg 07/13/20 09:00 07/13/20 09:50 Cholecalciferol (Vitamin D3) 25 Mcg Tablet PO 50 mcg DAILY OPAL Administration <Lorene Sumner NP - Last Filed: 07/14/20 17:22> Labs CBC & Chem 7: : 07/14/20 05:35 07/14/20 05:35 <Lorene Sumner NP - Last Filed: 07/14/20 17:22> Microbiology Microbiology Results: Microbiology 07/12/20 16:45 Urine clean catch - Clean Catch Midstream Urine Culture - Preliminary No growth to date. <Lorene Sumner NP - Last Filed: 07/14/20 17:22> Assessment and Plan (1) Acute UTI: Status: Acute <Lorene Sumner NP - Last Filed: 07/14/20 17:22> (2) Bacteremia due to Gram-negative bacteria: Problem details: On Antibiotics <Lorene Sumner NP - Last Filed: 07/14/20 17:22> Status: Acute <Lorene Sumner NP - Last Filed: 07/14/20 17:22> (3) Diastolic CHF: Status: Inactive <Lorene Sumner NP - Last Filed: 07/14/20 17:22> (4) ESRD (end stage renal disease): Status: Inactive <Lorene Sumner NP - Last Filed: 07/14/20 17:22> Assessment and Plan: 69-year-old kyrgyz speaking female with an extensive past medical history who presents to the hospital with bacteremia and near syncopal episode while at dialysis. Patient has all services in the home including INSPECTOR TECHNICIAN services. # Bacteremia- Secondary to UTI - cultures growing Gram-negative bacteria follow up species - Ceftin po - Urine culture no growth - Possible discharge tommorrow, already has INSPECTOR TECHNICIAN services in the home. # ESRD on dialysis - Dialysis today (T,,) #Leukocytosis. Improving. Secondary to UTI # Dyspnea secondary to CHF exacerbation. Better, no hypoxia-Dialysis on 07/11 cut short due to near syncope. Received 100 mg of Lasix in the ED (patient oliguric not completely anuric) - will monitor I&O, low-sodium diet/dialysis diet - BNP down today - Low BP, consider restarting bumex after dialysis # Hypertension-Low BP-better today. - Continue to hold Isosorbide #Anemia. related to chronic renal disease, no bleeding - Follow HH - Received Procrit yesterday as per nephrology. Attending Dr. Corrales <Lorene Sumner NP - Last Filed: 07/14/20 17:22>
[2020-07-14] MEDS: Cholecalciferol (Vitamin D3) 25 MCG TABLET 50 MCG PO (08:21)
[2020-07-14] MEDS: Metoprolol Tartrate 25 MG TABLET PO (08:22)
[2020-07-14] MEDS: Heparin Sodium,Porcine 5,000 UNIT/ML VIAL 5000 UNIT SUBCUT ×2 (08:29→20:56)
[2020-07-14] MEDS: guaiFENesin DM 100/10/5 ML 5 ML SYRUP PO ×2 (09:44→17:42)
--- NOTE | 2020-07-14 10:43 | W.PM.DNNEP ---
Subjective Subjective This patient was seen during dialysis. Interval history: Follow up for Syncope at dialysis. Had vomiting episode last night, better today. no further episodes. Physical Exam Vital Signs: Vital Signs: Last Vital Signs Temp 96.8 F 07/14/20 07:13 Pulse 92 07/14/20 08:22 Resp 18 07/14/20 07:13 BP 114/72 07/14/20 08:22 Pulse Ox 99 07/14/20 07:13 Body Mass Index 31.1 Const: General: cooperative Orientation/consciousness: oriented to person Neck: Neck: Yes supple Resp: Auscultation: diminished lung sounds GI: Inspection: Yes obesity Auscultation: normal bowel sounds Neuro: General: oriented to person Motor exam (neuro): No Asterixis during motor activity present Assessment & Plan Assessment and plan (1) Bacteremia due to Gram-negative bacteria: Problem details: On Antibiotics Status: Acute (2) ESRD (end stage renal disease): Problem details: No s/s of uremia HD today and TTS Status: Acute Time Spent With Patient Time: Total time spent is greater than 50% in coordination of care (as documented) at patient's floor/unit and/or counseling patient: Procedures Date of Service Date of Service: 07/14/20
--- NOTE | 2020-07-14 11:58 | MHC.CM.PN ---
EMR REVIEWED, PER MULTIDISCIPLINARY ROUNDS PT WILL BE GOING TO DIALYSIS TODAY AND WILL POSSIBLY DISCHARGE TOMORROW 07/15/20, DISCHARGE PLAN CONT'S TO BE HOME W/RESUMPTION OF BUILDING CONTRACTOR SAFETY ADMIN ASSISTANT SERVICES, CM TO ARRANGE TRANSPORT IF NECESSARY.
[2020-07-14] MEDS: 0.9 % Sodium Chloride Flush 3 ML SYRINGE IVFLUSH ×2 (17:29→23:46)
[2020-07-14] MEDS: Midodrine HCl 2.5 MG TABLET PO (17:55)
[2020-07-14] MEDS: 0.9 % Sodium Chloride 500 ML IV (18:04)
--- NOTE | 2020-07-14 18:13 | PC.NURSE ---
Pt came back from dialysis and BPs were low 85/50 manual. Assessed pt with command and control systems integrator, asymptomatic at this time. Notified provider. New orders for bolus of nomal saline 500mL and midodrine 2.5 PRN TID. Gave prn midodrine at 6pm. Effectiveness pending. Will report to oncoming nurse.
[2020-07-14] MEDS: Atorvastatin Calcium 40 MG TABLET PO (20:56)
[2020-07-15] VITALS (7 sets, daily range): BP systolic 96–131; BP diastolic 46–72; PULSE 64–76; RESP 18–20; TEMP 36.1–37.2; O2SAT 91–99; BMI 32.1
[2020-07-15 06:36] LABS: Anion Gap 9 (12-20); Blood Urea Nitrogen 14 mg/dL (9-16); Calcium 7.5 mg/dL (8.4-10.2); Carbon Dioxide 28 mmol/L (22-29); Chloride 102 mmol/L (96-108); Creatinine Clr Calc Pharmacy 26.5; Estimated Glomerular Filt Rate 26; Glucose Random 110 mg/dL (60-115); Potassium 3.2 mmol/L (3.3-5.1); Sodium 136 mmol/L (135-145)
[2020-07-15 06:46] LABS: B Type Natriuretic Peptide 1076 pg/mL (<100)
[2020-07-15] MEDS: metroNIDAZOLE/NS 500 MG/100 ML PIGGYBACK 100 MG IV ×3 (07:59→22:09)
[2020-07-15] MEDS: 0.9 % Sodium Chloride Flush 3 ML SYRINGE IVFLUSH ×3 (07:59→20:10)
[2020-07-15] MEDS: Potassium Chloride ER 20 MEQ TAB.ER.PRT 40 MEQ PO (08:14)
[2020-07-15] MEDS: Cholecalciferol (Vitamin D3) 25 MCG TABLET 50 MCG PO (09:38)
[2020-07-15] MEDS: Metoprolol Tartrate 25 MG TABLET PO ×2 (09:39→19:59)
[2020-07-15] MEDS: Heparin Sodium,Porcine 5,000 UNIT/ML VIAL 5000 UNIT SUBCUT ×2 (09:40→19:58)
--- NOTE | 2020-07-15 10:21 | PM.PNNEP ---
Subjective Subjective Date of Service: 07/15/20 Interval history: Overall doing OK Events noted Physical Exam Vital Signs: Vital Signs: Last Vital Signs Temp 99.0 F 07/15/20 07:31 Pulse 73 07/15/20 09:39 Resp 18 07/15/20 07:31 BP 112/54 L 07/15/20 09:39 Pulse Ox 99 07/15/20 07:31 Body Mass Index 31.1 Const: General: cooperative Orientation/consciousness: oriented to person Neck: Neck: Yes supple Resp: Auscultation: diminished lung sounds GI: Inspection: Yes obesity Auscultation: normal bowel sounds Neuro: General: oriented to person Motor exam (neuro): No Asterixis during motor activity present Objective Data Labs CBC & Chem 7: 07/14/20 05:35 07/15/20 05:37 Labs: Laboratory Results - last 24 hr 07/15/20 07/15/20 05:37 05:37 Sodium 136 Potassium 3.2 L D Chloride 102 Carbon Dioxide 28 Anion Gap 9 L BUN 14 D Creatinine 1.90 H Estim Creat Clear Calc 26.5 Estimated GFR 26 Random Glucose 110 Calcium 7.5 L D B-Natriuretic Peptide 1076 H Microbiology Microbiology Results: Microbiology 07/12/20 16:45 Urine clean catch - Clean Catch Midstream Urine Culture - Final Assessment & Plan Assessment and plan (1) Bacteremia due to Gram-negative bacteria: Problem details: On Antibiotics Status: Acute (2) ESRD (end stage renal disease): Problem details: No s/s of uremia HD today and TTS Status: Acute Time Spent With Patient Time: Total time spent is greater than 50% in coordination of care (as documented) at patient's floor/unit and/or counseling patient: Procedures Date of Service Date of Service: 07/15/20
--- NOTE | 2020-07-15 10:21 | HO.PM.IMPN ---
Subjective Subjective Date of Service: 07/15/20 Interval History: Follow up Bacteremia. Feels good today, no pain Physical Exam Vital Signs: Vital Signs: Last Vital Signs Temp 99.0 F 07/15/20 07:31 Pulse 73 07/15/20 09:39 Resp 18 07/15/20 07:31 BP 112/54 L 07/15/20 09:39 Pulse Ox 99 07/15/20 07:31 Body Mass Index 31.1 Appearing in no acute distress lung sounds are clear to auscultation heart regular rate rhythm, clear S1, S2 positive bowel sounds, abdomen is soft, nontender neuro patient is alert Objective Data Current Medications Generic Name Dose Route Start Last Admin Trade Name Freq PRN Reason Stop Dose Admin Atorvastatin Calcium 40 mg 07/12/20 21:00 07/14/20 20:56 Atorvastatin Calcium 40 Mg Tablet PO 40 mg BEDTIME OPAL Administration Docusate Sodium 100 mg 07/12/20 20:26 Docusate Sodium 100 Mg Capsule PO DAILY PRN Constipation Guaifenesin/Dextromethorphan 5 ml 07/13/20 10:06 07/14/20 17:42 Guaifenesin Dm 100/10/5 Ml 5 Ml Syrup PO 5 ml Q4H PRN Administration Cough Heparin Sodium (Porcine) 5,000 unit 07/12/20 20:30 07/15/20 09:40 Heparin Sodium,Porcine 5,000 Unit/Ml Vial SUBCUT 5,000 unit Q12H OPAL Administration Metronidazole 500 mg in 100 mls @ 100 mls/hr 07/15/20 07:45 07/15/20 09:00 Flagyl IV Infused Q8H OPAL Infusion Metoprolol Tartrate 25 mg 07/12/20 21:00 07/15/20 09:39 Metoprolol Tartrate 25 Mg Tablet PO 25 mg BID OPAL Administration Protocol Midodrine 2.5 mg 07/14/20 17:20 07/14/20 17:55 Midodrine Hcl 2.5 Mg Tablet PO 2.5 mg TID PRN Administration Hypotension Ondansetron HCl 4 mg 07/12/20 20:26 07/13/20 15:17 Ondansetron Hcl 4 Mg/2 Ml Vial IVPUSH 4 mg Q8H PRN Administration Nausea and Vomiting Sodium Chloride 3 ml 07/13/20 00:00 07/15/20 07:59 0.9 % Sodium Chloride Flush 3 Ml Syringe IVFLUSH 3 ml QSHIFT OPAL Administration Vitamin D 50 mcg 07/13/20 09:00 07/15/20 09:38 Cholecalciferol (Vitamin D3) 25 Mcg Tablet PO 50 mcg DAILY OPAL Administration Labs CBC & Chem 7: 07/14/20 05:35 07/15/20 05:37 Microbiology Microbiology Results: Microbiology 07/12/20 16:45 Urine clean catch - Clean Catch Midstream Urine Culture - Final Assessment and Plan (1) Bacteremia due to Gram-negative bacteria: Problem details: On Antibiotics Status: Acute (2) ESRD (end stage renal disease): Problem details: No s/s of uremia HD today and TTS Status: Acute Assessment and Plan: 69-year-old cypriot speaking female with an extensive past medical history who presents to the hospital with bacteremia and near syncopal episode while at dialysis. Dialysis on 07/11 cut short due to near syncope. Received 100 mg of Lasix in the ED (patient oliguric not completely anuric) Patient has all services in the home including SHAKE OUT WORKER services. # Bacteremia- Secondary to UTI. Organism noted to be Bacteroides fragilis - Started Flagyl - ID consult, discuss timeline for antibiotics or need for Picc line if longer term. - Possible discharge soon, already has SHAKE OUT WORKER services in the home. # Hypokalemia - Oral potassium - Follow BMP # ESRD on dialysis - Dialysis today (,,) #Leukocytosis. Improving. Secondary to UTI # Dyspnea secondary to CHF exacerbation. Better, no hypoxia- - will monitor I&O, low-sodium diet/dialysis diet - BNP down today - Low BP, consider restarting bumex after dialysis # Hypertension-Low BP-better today. - Continue to hold Isosorbide #Anemia. related to chronic renal disease, no bleeding - Follow HH - Received Procrit as per nephrology. Attending Dr. Corrales
--- NOTE | 2020-07-15 11:50 | MHC.CM.PN ---
PER MULTIDISCIPLINARY ROUNDS PT WILL NEED ID CONSULT TO DETERMINE IF SHE WILL NEED MANAGER TRANSFUSION ABX DUE TO BACTEREMIA, NO D/C PLANNED FOR TODAY. DISCHARGE PLAN: HOME W/RESUMPTION OF RN LPN CNA MUD PLANT OPERATOR SERVICES, WILL NEED TRANSPORT
--- NOTE | 2020-07-15 14:17 | MHC.CLN ---
F/U VARIABLE PO DIETRX: 1500DM 2GM NA LOW PHOS LOW K-APPROPRIATE PER RENAL PT RECEIVING GLUCERNA AND BREANNA TO PROMOTE WOUND HEALING MONITOR AND ENCOURAGE PO INTAKE FOLLOWING
--- NOTE | 2020-07-15 14:44 | W.PM.IDCN ---
History of Present Illness Data of Consult Service Date: 07/15/20 Requesting physician: Gaston Corrales Primary Care Provider: Jennifer Loya MD [facility] Reason for consult: bacteremia She presents to hospital with vomiting and syncope at dialysis She has blood cultures drawn which showed gram negative rods,bacteroides fragilis She denies symptoms Review of Systems Review of Systems: Yes all other systems are reviewed and are negative PMFSH Past Medical History Medical History Anemia Anemia Bacteremia due to Staphylococcus Bipolar disorder Constipation COPD (chronic obstructive pulmonary disease) Diabetes Diastolic CHF Diastolic dysfunction Diverticulitis Dyspnea ESRD (end stage renal disease) ESRD (end stage renal disease) Hyperlipidemia Hypertension Pneumonia Renal failure Thrombocytopenia Family History Family history: reviewed and not pertinent Social History Social History Household Members: Children Household Members Other:: daughter Housing: Apartment Do you presently have visiting nurse or other home services: No Alcohol intake: never Smoking Status: Former smoker Tobacco Type: Cigarette Years Smoked: many years Smoked in Last 30 Days: No Use of substances other than those prescribed or required for medical reasons: No Currently Displaying Signs/Symptoms of Drug Intoxication Withdrawal: No Have you been hit, kicked, punched, or otherwise hurt by someone within the past year? If so, by whom?: No Do you feel safe in your current relationship?: No Current Relationship Is there a partner from a previous relationship who is making you feel unsafe now?: No Are you made to feel afraid or neglected: No Advance Directives: Yes Advance Directives on File: Yes Advance Directives Date on File: 06/12/20 Do you have thoughts of harming others: None Do you have a plan to hurt others: No Plan Recently lost weight without trying: No service: No Current occupational status: retired and disabled Meds Allergies Allergy/AdvReac Type Severity Reaction Status Date / Time Penicillins Allergy Severe Anaphylaxis, Verified 05/13/20 12:33 hives acetaminophen [From TYLENOL] Allergy Unknown Unknown Verified 05/13/20 12:36 aspirin [ASPIRIN] Allergy Unknown rash, Verified 05/13/20 12:33 stomach upset diazepam [From VALIUM] Allergy Unknown RESP Verified 04/24/20 20:22 FAILURE penicillin V Allergy Unknown edema Verified 11/21/19 00:00 metformin [Metformin] AdvReac Mild DIARRHEA Verified 04/24/20 20:22 Active Medications: Current Medications Generic Name Dose Route Start Last Admin Trade Name Palmira PRN Reason Stop Dose Admin Atorvastatin Calcium 40 mg 07/12/20 21:00 07/14/20 20:56 Atorvastatin Calcium 40 Mg Tablet PO 40 mg BEDTIME OPAL Administration Docusate Sodium 100 mg 07/12/20 20:26 Docusate Sodium 100 Mg Capsule PO DAILY PRN Constipation Guaifenesin/Dextromethorphan 5 ml 07/13/20 10:06 07/14/20 17:42 Guaifenesin Dm 100/10/5 Ml 5 Ml Syrup PO 5 ml Q4H PRN Administration Cough Heparin Sodium (Porcine) 5,000 unit 07/12/20 20:30 07/15/20 09:40 Heparin Sodium,Porcine 5,000 Unit/Ml Vial SUBCUT 5,000 unit Q12H OPAL Administration Metronidazole 500 mg in 100 mls @ 100 mls/hr 07/15/20 07:45 07/15/20 09:00 Flagyl IV Infused Q8H OPAL Infusion Levofloxacin 250 mg in 50 mls @ 50 mls/hr 07/15/20 14:45 Levaquin IV Q48H OPAL Metoprolol Tartrate 25 mg 07/12/20 21:00 07/15/20 09:39 Metoprolol Tartrate 25 Mg Tablet PO 25 mg BID OPAL Administration Protocol Midodrine 2.5 mg 07/14/20 17:20 07/14/20 17:55 Midodrine Hcl 2.5 Mg Tablet PO 2.5 mg TID PRN Administration Hypotension Ondansetron HCl 4 mg 07/12/20 20:26 07/13/20 15:17 Ondansetron Hcl 4 Mg/2 Ml Vial IVPUSH 4 mg Q8H PRN Administration Nausea and Vomiting Sodium Chloride 3 ml 07/13/20 00:00 07/15/20 07:59 0.9 % Sodium Chloride Flush 3 Ml Syringe IVFLUSH 3 ml QSHIFT OPAL Administration Vitamin D 50 mcg 07/13/20 09:00 07/15/20 09:38 Cholecalciferol (Vitamin D3) 25 Mcg Tablet PO 50 mcg DAILY OPAL Administration Home Medications Medication Instructions Recorded Confirmed Last Taken Type atorvastatin 40 mg PO BEDTIME 04/24/20 07/12/20 Unknown History cholecalciferol (vitamin D3) 50 mcg PO QAM 04/24/20 07/12/20 Unknown History isosorbide mononitrate 60 mg PO QAM 04/24/20 07/12/20 Unknown History metoprolol tartrate 25 mg PO BID 04/24/20 07/12/20 Unknown History Physical Exam Vital Signs: Vital Signs: Last Vital Signs Temp 98.9 F 07/15/20 11:31 Pulse 64 07/15/20 11:31 Resp 18 07/15/20 11:31 BP 119/72 07/15/20 11:31 Pulse Ox 97 07/15/20 11:31 Body Mass Index 31.1 Const: General: cooperative Orientation/consciousness: patient oriented x3 HENMT: Head: Yes normal to inspection Mouth: Normal oral and palatal mucosa present Eyes: General: appearance normal, both eyes and all related structures Resp: Effort & Inspection: normal respiratory effort Cardio: Rate: regular rate Rhythm: regular rhythm GI: Palpation (GI): Soft to palpation and nontender : General: Yes no CVA tenderness Back/Spine/Pelvis: Back: no CVA tenderness Skin: General skin exam: no rashes or lesions noted Neuro: General: patient oriented x3 Extrem: General: Yes normal to inspection Results Labs CBC & Chem 7: 07/14/20 05:35 07/15/20 05:37 Labs: BMP 07/15/20 05:37 Sodium 136 Potassium 3.2 L D Chloride 102 Carbon Dioxide 28 BUN 14 D Creatinine 1.90 H Calcium 7.5 L D Microbiology Microbiology Results: Microbiology 07/12/20 16:45 Urine clean catch - Clean Catch Midstream Urine Culture - Final Assessment and Plan (1) Bacteremia due to Gram-negative bacteria: Problem details: Concern over source includes abdominal source such as diverticulitis There is also concern over other abdominal source such as biliary system Line infection from gram negative is unusual Status: Acute Cover abdominal source with gram negative aerobic and anerobic bacteria such as B.fragilis as they often go together Check abdomen and pelvis CT scan (2) ESRD (end stage renal disease): Problem details: No s/s of uremia HD today and TTS Status: Acute
[2020-07-15] MEDS: levoFLOXacin/D5W 250 MG/50 ML PIGGYBACK 50 MG IV (17:03)
[2020-07-15] MEDS: Atorvastatin Calcium 40 MG TABLET PO (19:58)
[2020-07-15] MEDS: oxyCODONE HCl Immed Release 5 MG TABLET 2.5 MG PO (22:08)
[2020-07-16] VITALS (7 sets, daily range): BP systolic 117–149; BP diastolic 52–71; PULSE 68–85; RESP 16–18; TEMP 36–37.1; O2SAT 96–100
[2020-07-16 06:52] LABS: Basophils Absolute Auto 0.1 X10*3/uL (0.0-0.2); Basophils Percent Auto 0.7 % (0-2); MANUAL DIFF FLAG SCAN; Red Cell Distribution Width 14.5 % (11.0-16.0); SCAN SMEAR FLAG 1
[2020-07-16 06:54] LABS: Eosinophils Absolute Auto 0.4 X10*3/uL (0.0-0.4); Eosinophils Percent Auto 5.3 % (0-4); Hemoglobin 8.7 g/dl (12.0-16.0); Imm Gran Pct Auto 1.2 % (0.0-0.4); Lymphocytes Absolute Auto 1.3 X10*3/uL (1.2-4.9); Lymphocytes Percent Auto 15.9 % (20-40); Mean Corpuscular HGB Conc 31.1 g/dl (31.0-35.0); Mean Corpuscular Hemoglobin 32.3 pg (27.0-33.0); Mean Corpuscular Volume 104.1 fL (80-98); Mean Platelet Volume 12.7 fL (9.4-12.3); Monocytes Absolute Auto 0.9 X10*3/uL (0.1-1.2); Monocytes Percent Auto 11.2 % (2-11); NRBC Pct Auto 0.2 /100WBC (0.0-0.2); Neutrophils Absolute Auto 5.5 X10*3/uL (2.0-8.3); Neutrophils Percent Auto 65.7 % (45-73); PLT CLUMP 1; Red Blood Count 2.69 X10*6/uL (4.20-5.50)
[2020-07-16 07:13] LABS: PLT ABN DIST 1
[2020-07-16 07:15] LABS: Blood Urea Nitrogen 21 mg/dL (9-16); Calcium 7.6 mg/dL (8.4-10.2); Creatinine Clr Calc Pharmacy 18.9; Estimated Glomerular Filt Rate 17; Glucose Random 136 mg/dL (60-115)
[2020-07-16 07:34] LABS: Platelet Count 77 X10*3/uL (160-400); White Blood Count 8.4 X10*3/uL (4.8-10.8)
[2020-07-16 07:35] LABS: SLIDE REVIEW VERIFIED
[2020-07-16 07:58] LABS: Anion Gap 14 (12-20); Carbon Dioxide 21 mmol/L (22-29); Chloride 104 mmol/L (96-108); Sodium 135 mmol/L (135-145)
--- NOTE | 2020-07-16 08:42 | MHC.CLN ---
RE: CONSULT SEE PROGRESS NOTE DATED 07/15/20 VARIABLE PO DIETRX: 1500DM 2GM NA LOW PHOS LOW K-APPROPRIATE PER RENAL PT RECEIVING GLUCERNA AND BREANNA TO [employer]ITOR AND ENCOURAGE PO INTAKE FOLLOWING
[2020-07-16] MEDS: oxyCODONE HCl Immed Release 5 MG TABLET 2.5 MG PO ×2 (11:08→20:52)
[2020-07-16] MEDS: 0.9 % Sodium Chloride Flush 3 ML SYRINGE IVFLUSH ×3 (11:51→20:53)
--- NOTE | 2020-07-16 12:02 | W.PM.DNNEP ---
Subjective Subjective This patient was seen during dialysis. Interval history: Follow up Bacteremia. Feels good today, no pain Physical Exam Vital Signs: Vital Signs: Last Vital Signs Temp 97.2 F 07/16/20 07:36 Pulse 70 07/16/20 07:36 Resp 17 07/16/20 07:36 BP 144/71 H 07/16/20 07:36 Pulse Ox 99 07/16/20 07:36 Body Mass Index 32.1 Const: General: cooperative Orientation/consciousness: oriented to person Neck: Neck: Yes supple Resp: Auscultation: diminished lung sounds GI: Inspection: Yes obesity Auscultation: normal bowel sounds Neuro: General: oriented to person Motor exam (neuro): No Asterixis during motor activity present Assessment & Plan Assessment and plan (1) Bacteremia due to Gram-negative bacteria: Status: Acute (2) ESRD (end stage renal disease): Problem details: No s/s of uremia HD today and TTS Status: Acute Time Spent With Patient Time: Total time spent is greater than 50% in coordination of care (as documented) at patient's floor/unit and/or counseling patient: Procedures Date of Service Date of Service: 07/16/20
--- NOTE | 2020-07-16 12:05 | HO.PM.IMPN ---
Subjective Subjective Date of Service: 07/16/20 Interval History: f/u admission for bacteremia/dyspnea patient seen in dialysis, has no complaints at this time. Review of Systems Review of Systems: Yes all other systems are reviewed and are negative Constitutional Constitutional: Denies chills and Denies fever(s) Cardiovascular Cardiovascular: Denies chest pain Respiratory Respiratory: Denies cough Gastrointestinal Gastrointestinal: Denies abdominal pain Physical Exam Vital Signs: Vital Signs: Last Vital Signs Temp 97.2 F 07/16/20 07:36 Pulse 70 07/16/20 07:36 Resp 17 07/16/20 07:36 BP 144/71 H 07/16/20 07:36 Pulse Ox 99 07/16/20 07:36 Body Mass Index 32.1 Const: General: comfortable, no acute distress, alert and awake Nutritional Appearance: well nourished Orientation/consciousness: patient oriented x3 HENMT: Head: Yes normocephalic and Yes atraumatic Eyes: Sclerae: sclerae normal Chest: Chest palpation & inspection: normal inspection of the chest Resp: Effort & Inspection: normal respiratory effort and no respiratory distress Cardio: Rate: regular rate Rhythm: regular rhythm GI: Other: PEG present LUQ Palpation (GI): Soft to palpation and nontender Skin: General skin exam: no rashes or lesions noted Neuro: General: patient oriented x3 Cranial nerves: Yes CN's II-XII intact bilaterally and Yes Bilaterally intact EOM present Extrem: General: Yes normal to inspection Objective Data Current Medications Generic Name Dose Route Start Last Admin Trade Name Freq PRN Reason Stop Dose Admin Atorvastatin Calcium 40 mg 07/12/20 21:00 07/15/20 19:58 Atorvastatin Calcium 40 Mg Tablet PO 40 mg BEDTIME OPAL Administration Docusate Sodium 100 mg 07/12/20 20:26 Docusate Sodium 100 Mg Capsule PO DAILY PRN Constipation Guaifenesin/Dextromethorphan 5 ml 07/13/20 10:06 07/14/20 17:42 Guaifenesin Dm 100/10/5 Ml 5 Ml Syrup PO 5 ml Q4H PRN Administration Cough Heparin Sodium (Porcine) 5,000 unit 07/12/20 20:30 07/15/20 19:58 Heparin Sodium,Porcine 5,000 Unit/Ml Vial SUBCUT 5,000 unit Q12H OPAL Administration Metronidazole 500 mg in 100 mls @ 100 mls/hr 07/15/20 07:45 07/16/20 11:50 Flagyl IV Not Given Q8H [facility] Levofloxacin 250 mg in 50 mls @ 50 mls/hr 07/15/20 15:00 07/15/20 18:05 Levaquin IV Infused Q48H [facility] Infusion Metoprolol Tartrate 25 mg 07/12/20 21:00 07/15/20 19:59 Metoprolol Tartrate 25 Mg Tablet PO 25 mg BID [facility] Administration Protocol Midodrine 2.5 mg 07/14/20 17:20 07/14/20 17:55 Midodrine Hcl 2.5 Mg Tablet PO 2.5 mg TID PRN Administration Hypotension Ondansetron HCl 4 mg 07/12/20 20:26 07/13/20 15:17 Ondansetron Hcl 4 Mg/2 Ml Vial IVPUSH 4 mg Q8H PRN Administration Nausea and Vomiting Oxycodone HCl 2.5 mg 07/15/20 21:46 07/16/20 11:08 Oxycodone Hcl Immed Release 5 Mg Tablet PO 2.5 mg Q6H PRN Administration Breakthrough Pain Sodium Chloride 3 ml 07/13/20 00:00 07/16/20 11:51 0.9 % Sodium Chloride Flush 3 Ml Syringe IVFLUSH 3 ml QSHIFT [facility] Administration Vitamin D 50 mcg 07/13/20 09:00 07/16/20 11:51 Cholecalciferol (Vitamin D3) 25 Mcg Tablet PO Not Given DAILY [facility] Labs CBC & Chem 7: 07/16/20 05:46 07/16/20 05:46 Microbiology Microbiology Results: Microbiology 07/12/20 16:45 Urine clean catch - Clean Catch Midstream Urine Culture - Final Assessment and Plan (1) ESRD (end stage renal disease): Status: Acute (2) Bacteremia due to Gram-negative bacteria: Status: Acute Assessment and Plan: This is a 69-year-old tajik speaking female with an extensive past medical history including ESRD on HD, h/o COVID 19, HFpEF, DM, COPD, CAD who presents to the hospital with bacteremia and near syncopal episode while at dialysis. Dialysis on 07/11 cut short due to near syncope. Gram Negative Bacteremia Final BCx growing Bacteroides fragilis, with beta-lactamase produced Initially thought to be r/t UTI, however UCx with mixed rehana likely contaminant. CT of abdomen unremarkable. Seen by ID who recommends flagyl/levaquin, can be d/c with PO for total of 14 days of therapy ESRD on dialysis -Dialysis today 07/16 (,,) -nephrology following Leukocytosis. Resolved. HFpEF - will monitor I&O, low-sodium diet/dialysis diet - Will resume Bumex Hypertension BP improved. BP had been low, midodrine started prn 3/ but has not required since -Continue Lopressor -Imdur on hold Anemia of chronic dz H/H stable Chronic respiratory failure/COPD Continue 2L home O2 CAD Continue Lopressor, plavix Imdur on hold due to soft BP, can resume if BP allows Mood Resume fluoxetine, seroquel Dispo: home likely tomorrow. Has [employer]END[employer] services at home PEG tube in place from previous prolonged hospitalization, however it is no longed used. DVT ppx - heparin This case was discussed with Dr. Corrales
--- NOTE | 2020-07-16 13:12 | MHC.CM.PN ---
Addendum entered by Elyse Jaffe RN 07/16/20 15:09: PER PT FAMILY PT WILL D/C W/[facility] FOR [facility], PT WILL NEED TRANSPORT HOME. Addendum entered by Elyse Jaffe RN 07/16/20 13:35: PER PT'S DAUGHTER THEY WOULD LIKE [facility] FOR PT AFTER DISCHARGE AND WILL NEED TRANSPORTATION SET UP FOR PT. Original Note: PER HOSPITALIST AND ID, PT WILL NOT REQUIRE IV ABX AND WILL BE DISCHARGED HOME ON LEVAQUIN AND FLAGYL FOR TOTAL OF 14 DAYS, ANTICIPATED D/C Monday07/17/20. CM CONTACT DAUGHTER TO DETERMINE IF VNA IS NEEDED. DISCHARGE PLAN: HOME W/RESUMPTION OF [employer]PER[employer], POSSIBLY WILL NEED TRANSPORT.
[2020-07-16] MEDS: Bumetanide 1 MG TABLET 4 MG PO (16:20)
[2020-07-16] MEDS: metroNIDAZOLE/NS 500 MG/100 ML PIGGYBACK 100 MG IV ×2 (16:21→23:17)
--- NOTE | 2020-07-16 18:56 | PC.NURSE ---
patient has a dialysis cath in left chest,drsg CDI,no redness,no swelling
[2020-07-16] MEDS: Metoprolol Tartrate 25 MG TABLET PO (20:52)
[2020-07-16] MEDS: Atorvastatin Calcium 40 MG TABLET PO (20:52)
[2020-07-16] MEDS: Clopidogrel Bisulfate 75 MG TABLET PO (20:52)
[2020-07-16] MEDS: Heparin Sodium,Porcine 5,000 UNIT/ML VIAL 5000 UNIT SUBCUT (20:53)
[2020-07-17 03:10] VITALS: BP 139/65; PULSE 74; RESP 18; TEMP 36.7; O2SAT 97
[2020-07-17 05:58] LABS: MANUAL DIFF FLAG NO
[2020-07-17 06:02] LABS: Basophils Absolute Auto 0.1 X10*3/uL (0.0-0.2); Basophils Percent Auto 0.7 % (0-2); Eosinophils Absolute Auto 0.5 X10*3/uL (0.0-0.4); Eosinophils Percent Auto 6.5 % (0-4); Hematocrit 27.3 % (37-47); Hemoglobin 8.3 g/dl (12.0-16.0); Imm Gran Abs Auto 0.17 X10*3/uL (0.00-0.03); Lymphocytes Absolute Auto 1.6 X10*3/uL (1.2-4.9); Lymphocytes Percent Auto 19.2 % (20-40); Mean Corpuscular HGB Conc 30.4 g/dl (31.0-35.0); Mean Corpuscular Hemoglobin 31.8 pg (27.0-33.0); Mean Corpuscular Volume 104.6 fL (80-98); Mean Platelet Volume 12.1 fL (9.4-12.3); Monocytes Percent Auto 12.2 % (2-11); Neutrophils Absolute Auto 4.9 X10*3/uL (2.0-8.3); Neutrophils Percent Auto 59.4 % (45-73); Red Blood Count 2.61 X10*6/uL (4.20-5.50); Red Cell Distribution Width 14.5 % (11.0-16.0); White Blood Count 8.3 X10*3/uL (4.8-10.8)
[2020-07-17 06:15] LABS: Platelet Count 76 X10*3/uL (160-400)
[2020-07-17 06:35] LABS: Anion Gap 11 (12-20); Blood Urea Nitrogen 12 mg/dL (9-16); Calcium 7.6 mg/dL (8.4-10.2); Carbon Dioxide 22 mmol/L (22-29); Chloride 103 mmol/L (96-108); Creatinine Clr Calc Pharmacy 28.4; Estimated Glomerular Filt Rate 28; Glucose Random 117 mg/dL (60-115); Potassium 3.5 mmol/L (3.3-5.1); Sodium 132 mmol/L (135-145)
[2020-07-17 08:00] VITALS: BP 137/56; PULSE 74; RESP 22; TEMP 36.1; O2SAT 96
[2020-07-17 08:08] LABS: Glucose, Whole Blood 99 mg/dL (60-115)
[2020-07-17] MEDS: Metoprolol Tartrate 25 MG TABLET PO (08:31)
[2020-07-17] MEDS: FLUoxetine HCl Oral Solution 20 MG/5 ML SOLUTION PO (08:31)
[2020-07-17] MEDS: Cholecalciferol (Vitamin D3) 25 MCG TABLET 50 MCG PO (08:31)
[2020-07-17] MEDS: Heparin Sodium,Porcine 5,000 UNIT/ML VIAL 5000 UNIT SUBCUT (08:31)
[2020-07-17] MEDS: metroNIDAZOLE/NS 500 MG/100 ML PIGGYBACK 100 MG IV (08:32)
[2020-07-17] MEDS: 0.9 % Sodium Chloride Flush 3 ML SYRINGE IVFLUSH (08:32)
[2020-07-17] MEDS: levoFLOXacin 250 MG TABLET PO (09:35)
--- NOTE | 2020-07-17 10:57 | P.DS_ITS ---
DS: Providers Provider Date of Service: 07/17/20 Date of admission: 07/12/20 20:21 Primary care physician: Jennifer Loya MD Consults: 07/12/20 20:26 Consult to Nephrology Routine Consulting Provider: [facility] Reason for consultation: Dialysis pt Has provider been notified: No 07/15/20 07:31 Consult to Infectious Diseases Routine Consulting Provider: Ana Aguila Reason for consultation: bacteroides Has provider been notified: No DS: Diagnosis Discharge Diagnosis (1) ESRD (end stage renal disease): Status: Acute (2) Bacteremia due to Gram-negative bacteria: Status: Acute DS: Medications Discharge Medications Home Medications: Home Medications Medication Instructions Recorded Confirmed atorvastatin 40 mg PO BEDTIME 04/24/20 07/12/20 cholecalciferol (vitamin D3) 50 mcg PO QAM 04/24/20 07/12/20 metoprolol tartrate 25 mg PO BID 04/24/20 07/12/20 Anoro Ellipta 1 puff INHALATION DAILY 07/16/20 07/16/20 bumetanide 4 mg PO SUTUTHSA@0800,1700 07/16/20 07/16/20 clopidogrel 1 tab PO BEDTIME 07/16/20 07/16/20 fluoxetine 5 ml PO DAILY 07/16/20 07/16/20 lorazepam 1 tab PO DAILY PRN 07/16/20 07/16/20 quetiapine 25 mg PO BEDTIME PRN 07/16/20 07/16/20 Previous Rx's Medication Instructions Recorded isosorbide mononitrate 30 mg PO DAILY #30 tab 07/17/20 levofloxacin 250 mg PO Q48H #6 tab 07/17/20 metronidazole 500 mg PO Q8H #36 tab 07/17/20 DS: Summary Hospital Course Hospital Course: Chief Complaint: Bacteremia History is obtained with the help of [employer] mutual ticket checker This is a 69-year-old female with past medical history of CHF, hypertension, diabetes, COPD, anemia, ESRD on dialysis who presents to the hospital initially on 07/11 with complaints of near syncopal episode while undergoing dialysis. At that time she was evaluated in the ED labs were taken and patient was sent home. Her blood cultures did come back positive for Gram-negative rods and patient was called back to come to the ED. She now complaints of diarrhea, urinary frequency urgency and dysuria. Patient appears short of breath, when I ask her about it she said this is chronic and has not worsened. She has a chronic cough that has not worsened, sputum production that is yellow in color, she denies any fever, she has chills, denies any nausea or vomiting. Denies any lower extremity edema. To the ED hemodynamically stable except for heart rate of 114 All labs are significant for WBC count of 7.6, hemoglobin of 7.7 which is around her usual baseline, BUN of 30, creatinine of 3.35, albumin of 1.9, UA that is positive for nitrites, leukocyte Estrace, WBC, chest x-ray shows stable low lung volumes with patchy bilateral airspace disease 69-year-old estonian speaking female with an extensive past medical history including ESRD on HD, h/o COVID 19, HFpEF, DM, COPD, CAD who presents to the hospital with bacteremia and near syncopal episode while at dialysis. Dialysis on 07/11 cut short due to near syncope patient workup showed bacteremia. Bacteroides fragilis, with beta-lactamase positive likely source from bowel ,Initially thought to be r/t UTI, however UCx with mixed rehana likely contaminant. CT of abdomen unremarkable. Will discharge patient on by mouth flagyl and levaquin,for total of 14 days of therapy, patient was followed closely by ID during hospitalization. Will need Levaquin post hemodialysis end date July 29 ESRD on dialysis continue Dialysis T,, nephrology aware of discharge. HFpEF no acute exacerbation noted continue Bumex and low-sodium diet Hypertension noted to have low blood pressure initially, continue Lopressor and dose of Imdur reduced to 30 mg Anemia of chronic dz H/H stable Chronic respiratory failure/COPD Continue 2L home O2 CAD no acute chest pain,Continue Lopressor, plavix and Imdur Mood Resume fluoxetine, seroquel PEG tube in place from previous prolonged hospitalization, however it is no longer used. Time Spent with Patient Time attestation: Total time spent providing and/or coordinating discharge services: Discharge coordination time: Greater than 30 minutes Physical Exam Vital Signs: Vital Signs: Last Vital Signs Temp 97.0 F 07/17/20 08:00 Pulse 74 07/17/20 08:00 Resp 22 H 07/17/20 08:00 BP 137/56 L 07/17/20 08:00 Pulse Ox 96 07/17/20 08:00 Body Mass Index 32.1 Resting comfortably no acute distress patient awake alert answering questions appropriately Neck good range of motion Heart regular rate rhythm Abdomen soft nontender PEG tube present with no surrounding erythema Extremities no edema skin no rashes or lesions noted Neuro cranial nerve intact speech clear, patient awake alert x3 DS: Data Data Completed and Pending Completed studies during hospitalization [Text1]: Procedures Insertion of Infusion Device into Superior Vena Cava, Percutaneous Approach (05/04/20) Performance of Urinary Filtration, Intermittent, Less than 6 Hours Per Day (06/11/20) Removal of Infusion Device from Upper Vein, Open Approach (05/04/20) Transfusion of Nonautologous Platelets into Peripheral Vein, Percutaneous Approach (05/04/20) Ultrasonography of Superior Vena Cava, Guidance (05/04/20) Labs on day of discharge: Laboratory Results - last 24 hr 07/17/20 07/17/20 07/17/20 05:38 05:38 08:03 WBC 8.3 RBC 2.61 L Hgb 8.3 L Hct 27.3 L MCV 104.6 H MCH 31.8 MCHC 30.4 L RDW 14.5 Plt Count 76 L MPV 12.1 Immature Gran % (Auto) 2.0 H Neut % (Auto) 59.4 Lymph % (Auto) 19.2 L [place] % (Auto) 12.2 H Eos % (Auto) 6.5 H Baso % (Auto) 0.7 Lymph # (Auto) 1.6 [place] # (Auto) 1.0 Eos # (Auto) 0.5 H Baso # (Auto) 0.1 Abs Immat Gran (auto) 0.17 H Absolute Neuts (auto) 4.9 Absolute Nucleated RBC 0.000 Nucleated RBC % (auto) 0.0 Sodium 132 L Potassium 3.5 Chloride 103 Carbon Dioxide 22 Anion Gap 11 L BUN 12 Creatinine 1.80 H Estim Creat Clear Calc 28.4 Estimated GFR 28 POC Glucose 99 Random Glucose 117 H Calcium 7.6 L Discharge Plan Discharge Patient Disposition: Home Health Service Referrals: Jennifer Loya MD [Primary Care Provider] - 1 Week (Tele 07/29/2020 10:30. will call you to discuss your hospital stay.) Discharge Medications: New isosorbide mononitrate 30 mg tablet extended release 24 hr 30 mg PO DAILY Qty: 30 RF: 0 metronidazole 500 mg Tablet 500 mg PO Q8H Qty: 36 RF: 0 levofloxacin 250 mg Tablet 250 mg PO Q48H Qty: 6 RF: 0 Continued atorvastatin 40 mg tablet 40 mg PO BEDTIME RF: 0 metoprolol tartrate 25 mg tablet 25 mg PO BID RF: 0 cholecalciferol (vitamin D3) 50 mcg (2,000 unit) tablet 50 mcg PO QAM RF: 0 bumetanide 2 mg Tablet 4 mg PO SUTUTHSA@0800,1700 RF: 0 fluoxetine 20 mg/5 mL (4 mg/mL) solution 5 ml PO DAILY RF: 0 quetiapine 25 mg tablet 25 mg PO BEDTIME PRN (Reason: Sleep) RF: 0 clopidogrel 75 mg tablet 1 tab PO BEDTIME RF: 0 lorazepam 0.5 mg tablet 1 tab PO DAILY PRN (Reason: Anxiety) RF: 0 Anoro Ellipta 62.5-25 mcg/actuation blister with device 1 puff inhalation DAILY RF: 0 Discontinued isosorbide mononitrate 60 mg tablet extended release 24 hr 60 mg PO QAM RF: 0 Discharge Orders: Discharge Order (Routine); Ordered 07/17/20 Ordered By: Bunny Rudolph Diet: advance to usual diet Activity on Discharge: As tolerated Stand Alone Forms: Patient Portal Discharge page Care Plan Goals: Take all medications as previously prescribed finish course of antibiotics Health Concerns: Bacteremia, poor by mouth intake Plan of Treatment: Follow-up with primary care physician
--- NOTE | 2020-07-17 10:57 | MHC.CM.PN ---
Addendum entered by Carol Acevedo 07/17/20 11:23: CM WAS ABLE TO REACH PTS DAUGHTER, KORTNEY ([phone]) VIA T/C. CM INFORMED HER THAT PT WAS BEING DISCHARGED TODAY WITH [facility]. KORTNEY REPORTED BEING HAPPY THAT THE PT WOULD BE RETURNING HOME. KORTNEY WILL NOT BE TRANSPORTING THE PT INDICATED IN EARLIER NOTES. PT IS BED BOUND AND WILL REQUIRE BLS TRANSPORT WHICH IS SCHEDULED FOR 1300 HOURS Original Note: PT CLEARED FOR DC TODAY. CM ATTEMPTED TO CONTACT PTS DAUGHTER, KORTNEY ([phone]) VIA T/C HOWEVER HER LINE IS OUT OF SERVICE. CONG, WILL DISCUSS DC WITH PT ONCE A [employer] SUPER[employer] IS AVAILABLE. DC PLAN IS HOME TODAY WITH RESUMPTION OF [employer] AND [facility] PTS DAUGHTER, KORTNEY, HAD INDICATED SHE WOULD PROVIDE TRANSPORTATION AT DC
[2020-07-17 11:20] LABS: Glucose, Whole Blood 177 mg/dL (60-115)
--- NOTE | 2020-07-17 11:29 | PM.PNNEP ---
Subjective Subjective Date of Service: 07/17/20 Interval history: f/u admission for bacteremia/dyspnea patient seen in dialysis, has no complaints at this time. Physical Exam Vital Signs: Vital Signs: Last Vital Signs Temp 97.0 F 07/17/20 08:00 Pulse 74 07/17/20 08:00 Resp 22 H 07/17/20 08:00 BP 137/56 L 07/17/20 08:00 Pulse Ox 96 07/17/20 08:00 Body Mass Index 32.1 Const: General: cooperative Orientation/consciousness: oriented to person Neck: Neck: Yes supple Resp: Auscultation: diminished lung sounds GI: Inspection: Yes obesity Auscultation: normal bowel sounds Neuro: General: oriented to person Motor exam (neuro): No Asterixis during motor activity present Objective Data Labs CBC & Chem 7: 07/17/20 05:38 07/17/20 05:38 Labs: Laboratory Results - last 24 hr 07/17/20 07/17/20 07/17/20 05:38 05:38 08:03 WBC 8.3 RBC 2.61 L Hgb 8.3 L Hct 27.3 L MCV 104.6 H MCH 31.8 MCHC 30.4 L RDW 14.5 Plt Count 76 L MPV 12.1 Immature Gran % (Auto) 2.0 H Neut % (Auto) 59.4 Lymph % (Auto) 19.2 L [place] % (Auto) 12.2 H Eos % (Auto) 6.5 H Baso % (Auto) 0.7 Lymph # (Auto) 1.6 [place] # (Auto) 1.0 Eos # (Auto) 0.5 H Baso # (Auto) 0.1 Abs Immat Gran (auto) 0.17 H Absolute Neuts (auto) 4.9 Absolute Nucleated RBC 0.000 Nucleated RBC % (auto) 0.0 Sodium 132 L Potassium 3.5 Chloride 103 Carbon Dioxide 22 Anion Gap 11 L BUN 12 Creatinine 1.80 H Estim Creat Clear Calc 28.4 Estimated GFR 28 POC Glucose 99 Random Glucose 117 H Calcium 7.6 L 07/17/20 11:11 WBC RBC Hgb Hct MCV MCH MCHC RDW Plt Count MPV Immature Gran % (Auto) Neut % (Auto) Lymph % (Auto) [place] % (Auto) Eos % (Auto) Baso % (Auto) Lymph # (Auto) [place] # (Auto) Eos # (Auto) Baso # (Auto) Abs Immat Gran (auto) Absolute Neuts (auto) Absolute Nucleated RBC Nucleated RBC % (auto) Sodium Potassium Chloride Carbon Dioxide Anion Gap BUN Creatinine Estim Creat Clear Calc Estimated GFR POC Glucose 177 H Random Glucose Calcium Microbiology Microbiology Results: Microbiology 07/12/20 16:45 Urine clean catch - Clean Catch Midstream Urine Culture - Final Assessment & Plan Assessment and plan (1) Bacteremia due to Gram-negative bacteria: Status: Acute (2) ESRD (end stage renal disease): Problem details: HD TTS Levaquin until 07/29 Status: Acute Time Spent With Patient Time: Total time spent is greater than 50% in coordination of care (as documented) at patient's floor/unit and/or counseling patient: Procedures Date of Service Date of Service: 07/17/20
[2020-07-17 12:00] VITALS: BP 142/71; PULSE 72; RESP 22; TEMP 36.4; O2SAT 97
== END 2020-07-17 13:25 | disposition home health service (06) | DRG 391 ==
LOC: HO.ED 18:31 → HO.EDOVER 22:09 → HO.S3 22:37 → HO.IMC 07-16 12:23
PROVIDERS: Nurse Practitioner Acute Care; Physician Assistant Medical; Admitting Provider Internal Medicine; Emergency Provider Internal Medicine; PCP Family Medicine; Visit Provider Hospitalist
DX: A09 Infectious gastroenteritis and colitis, unspecified (principal); N18.6 End stage renal disease; I13.2 Hypertensive heart and chronic kidney disease with heart failure and with stage 5 chronic kidney disease, or end stage renal disease; J96.10 Chronic respiratory failure, unspecified whether with hypoxia or hypercapnia; I50.32 Chronic diastolic (congestive) heart failure; D63.1 Anemia in chronic kidney disease; Z99.81 Dependence on supplemental oxygen; E87.6 Hypokalemia; E11.22 Type 2 diabetes mellitus with diabetic chronic kidney disease; Z99.2 Dependence on renal dialysis; Z87.891 Personal history of nicotine dependence; Z88.0 Allergy status to penicillin; Z79.02 Long term (current) use of antithrombotics/antiplatelets; Z79.899 Other long term (current) drug therapy
CPT/HCPCS: 36415; 71045; 74176; 80048; 80076; 81001; 81003; 82947; 83605; 83735; 83880; 84145; 84484; 85007; 85025; 85027; 85610; 85730; 87040; 87076; 87086; 87185; 87205; 87635; 90999; 93005; 96365; 99284; J0696; J0885; J1940; J1956; J2405; J2765; J3475

== ENCOUNTER 2020-07-31 13:46 | Outpatient (REF) | payer MEDICARE, MEDICAID, SELFPAY ==
[2020-07-31 14:21] LABS: CDIFF Ag Negative (Negative); CDIFF Internal ctrl Dots and bkg OK (V); CDiff Toxin Negative (Negative)
== END 2020-07-31 13:47 | disposition home or self-care (01) ==
LOC: HO.LNP 13:46
PROVIDERS: Visit Provider Family Medicine
DX: R19.7 Diarrhea, unspecified (principal)
CPT/HCPCS: 87045; 87046; 87324; 87449

== ENCOUNTER → 2020-09-07 13:53 | Outpatient (BNVA) | payer MEDICARE, MEDICAID, SELFPAY | PROVIDERS: PCP Family Medicine; Visit Provider Physician Assistant | DX: K52.9 Noninfective gastroenteritis and colitis, unspecified (principal) | CPT/HCPCS: 99212 ==

== ENCOUNTER → 2020-10-20 10:10 | Outpatient (BNVA) | payer MEDICARE, MEDICAID, SELFPAY | PROVIDERS: Visit Provider Physician Assistant | CPT/HCPCS: Q3014 ==

== ENCOUNTER → 2021-01-05 08:48 | Outpatient (BNVA) | payer MEDICARE, MEDICAID, SELFPAY | PROVIDERS: Visit Provider Physician Assistant | DX: K52.9 Noninfective gastroenteritis and colitis, unspecified (principal); N18.6 End stage renal disease; Z79.899 Other long term (current) drug therapy; Z99.2 Dependence on renal dialysis | CPT/HCPCS: Q3014 ==

== ENCOUNTER 2021-01-12 13:47 | Emergency (ER) | payer MEDICARE, MEDICAID, SELFPAY ==
[2021-01-12 14:04] VITALS: BP 125/51; BP 132/74; PULSE 79; O2SAT 95; BMI 32.9
[2021-01-12 14:10] VITALS: BP 125/51; PULSE 72; TEMP 37.3; O2SAT 100
--- NOTE | 2021-01-12 14:11 | ED_ITS ---
HPI - General Adult General Chief complaint: General Medical Stated complaint: gtube issue Time Seen by Provider: 01/12/21 14:11 Source: patient and old records reviewed Mode of arrival: EMS Limitations: no limitations History of Present Illness MD complaint: PEG tube fell out 18Fr Onset (ago): hour(s) (in the middle of the night) Location: abdomen Relieving factors: none Exacerbating factors: none Associated symptoms: denies other symptoms Treatments prior to arrival: none Related Data Home Medications Medication Instructions Recorded Confirmed atorvastatin 40 mg tablet 40 mg PO BEDTIME 04/24/20 01/05/21 cholecalciferol (vitamin D3) 50 50 mcg PO QAM 04/24/20 01/05/21 mcg (2,000 unit) tablet metoprolol tartrate 25 mg tablet 25 mg PO BID 04/24/20 01/05/21 bumetanide 2 mg tablet 4 mg PO SUTUTHSA@0800,1700 07/16/20 01/05/21 clopidogrel 75 mg tablet 1 tab PO BEDTIME 07/16/20 01/05/21 fluoxetine 20 mg/5 mL (4 mg/mL) 5 ml PO DAILY 07/16/20 01/05/21 oral solution lorazepam 0.5 mg tablet 1 tab PO DAILY PRN 07/16/20 01/05/21 quetiapine 25 mg tablet 25 mg PO BEDTIME PRN 07/16/20 01/05/21 umeclidinium 62.5 mcg-vilanterol 1 puff INHALATION DAILY 07/16/20 01/05/21 25 mcg/actuation powdr for inhalation (Anoro Ellipta) nystatin 100,000 unit/gram topical 1 appl TOPICAL BID-TID 01/05/21 01/05/21 powder Previous Rx's Medication Instructions Recorded isosorbide mononitrate 30 mg 30 mg PO DAILY #30 tab 07/17/20 tablet,extended release 24 hr levofloxacin 250 mg tablet 250 mg PO Q48H #6 tab 07/17/20 metronidazole 500 mg tablet 500 mg PO Q8H #36 tab 07/17/20 loperamide 1 mg/7.5 mL oral liquid 1 mg PO DAILY #120 ml 01/05/21 (Imodium A-D) loperamide 1 mg/7.5 mL oral liquid 1 mg PO DAILY #120 ml 01/05/21 (Imodium A-D) Allergies Allergy/AdvReac Type Severity Reaction Status Date / Time Penicillins Allergy Severe Anaphylaxis, Verified 01/05/21 08:49 hives acetaminophen [From TYLENOL] Allergy Unknown Unknown Verified 01/05/21 08:49 aspirin [ASPIRIN] Allergy Unknown rash, Verified 01/05/21 08:49 stomach upset diazepam [From VALIUM] Allergy Unknown RESP Verified 01/05/21 08:49 FAILURE penicillin V Allergy Unknown edema Verified 01/05/21 08:49 metformin [Metformin] AdvReac Mild DIARRHEA Verified 01/05/21 08:49 Review of Systems Review of Systems: Constitutional :No Fever, No Chills ENT/Mouth : No sore throat, No Rhinorrhea Eyes: No Eye Pain, No Swelling, No Redness Cardiovascular : No Chest Pain, No SOB Respiratory : No Cough, No Sputum, No Wheezing Gastrointestinal : No Nausea, No Vomiting, No Diarrhea Genitourinary : No Dysuria, No Urinary Frequency Musculoskeletal : No joint pain, No Myalgias Skin : No Skin Lesions, No rash Neuro : No Weakness, No Numbness, No Dizziness Psych : No Anxiety/Panic, No Depression Heme/Lymph: No Bruising, No Bleeding Endocrine : No Polyuria, No Polydipsia All other systems reviewed and are negative COUNT INCLUDES THE [facility] Past Medical History Attestation statement: The following information was validated with the patient. Medical History Anemia Anemia Bacteremia due to Staphylococcus Bipolar disorder Chronic diarrhea Constipation COPD (chronic obstructive pulmonary disease) Diabetes Diastolic CHF Diastolic dysfunction Diverticulitis Dyspnea ESRD (end stage renal disease) ESRD (end stage renal disease) Hyperlipidemia Hypertension Pneumonia Renal failure Thrombocytopenia Social History Social History Household Members: Children Household Members Other:: daughter Housing: Apartment Do you presently have visiting nurse or other home services: No Unable to assess alcohol history related to: Unknown Alcohol intake: never Years Smoked: many years Advance Directives: Yes Advance Directives on File: Yes Advance Directives Date on File: 06/12/20 service: No Current occupational status: retired and disabled Physical Exam Vital Signs: Vital Signs: Last Vital Signs Temp 99.1 F 01/12/21 14:10 Pulse 73 01/12/21 15:08 Resp 20 01/12/21 15:08 BP 132/52 L 01/12/21 15:08 Pulse Ox 100 01/12/21 15:08 Body Mass Index 32.9 Appearance: Alert. Oriented X3. No acute distress. Eyes: Pupils equal, round and reactive to light. ENT: Pharynx normal. Neck: Normal inspection. Neck supple. CVS: Normal heart rate and rhythm. Pulses normal. Respiratory: No respiratory distress. Breath sounds normal. Abdomen: Soft and nontender. G tube site c/d/i opening appears swollen Skin: Skin warm and dry. Normal skin color. Normal skin turgor. Extremities: No lower extremity edema. No calf ttp Neuro: Oriented X 3. No motor deficit. No sensory deficit. Course Course Course Narrative: unable to pass G tube - unable to find inner pathway consult sent to Dr. Yang Soria passed 16Fr tube no issues, no need for radiologic investigation Medical Decision Making MDM Narrative Medical decision making narrative: 70 yo female with PEG tube post serious illness still gets infusions through PEG tube - came out last night, will attempt to replace though given the fact it is has been out for more than 8 hours may need surgery consult Discharge Plan Discharge Clinical Impression: Gastrostomy tube dysfunction Patient Disposition: Home, Self-Care Instructions: How to Use and Care for Your PEG Tube (ED) Additional Instructions: return to ED for any worsening symptoms or concerns tube replaced by surgery in ED - Dr. Soria Prescriptions: No Action atorvastatin 40 mg tablet 40 mg PO BEDTIME RF: 0 metoprolol tartrate 25 mg tablet 25 mg PO BID RF: 0 cholecalciferol (vitamin D3) 50 mcg (2,000 unit) tablet 50 mcg PO QAM RF: 0 bumetanide 2 mg Tablet 4 mg PO SUTUTHSA@0800,1700 RF: 0 fluoxetine 20 mg/5 mL (4 mg/mL) solution 5 ml PO DAILY RF: 0 quetiapine 25 mg tablet 25 mg PO BEDTIME PRN (Reason: Sleep) RF: 0 clopidogrel 75 mg tablet 1 tab PO BEDTIME RF: 0 lorazepam 0.5 mg tablet 1 tab PO DAILY PRN (Reason: Anxiety) RF: 0 Anoro Ellipta 62.5-25 mcg/actuation blister with device 1 puff inhalation DAILY RF: 0 isosorbide mononitrate 30 mg tablet extended release 24 hr 30 mg PO DAILY Qty: 30 RF: 0 metronidazole 500 mg Tablet 500 mg PO Q8H Qty: 36 RF: 0 levofloxacin 250 mg Tablet 250 mg PO Q48H Qty: 6 RF: 0 nystatin 100,000 unit/gram powder 1 appl topical BID-TID RF: 0 loperamide [Imodium A-D] 1 mg/7.5 mL liquid 1 mg PO DAILY Qty: 120 RF: 0 loperamide [Imodium A-D] 1 mg/7.5 mL liquid 1 mg PO DAILY Qty: 120 RF: 0 Print Language: Wolof
[2021-01-12 15:08] VITALS: BP 132/52; PULSE 73; RESP 20; O2SAT 100
--- NOTE | 2021-01-12 15:35 | PM.CNGS ---
History of Present Illness Consult details Consult date: 01/12/21 Narrative: 76-year-old female referred to me by the the ED because of this dislodged PEG tube. The patient has multiple medical problems including coronary disease, end-stage renal disease, obstructive sleep apnea and pulmonary hypertension, and had undergone PEG tube placement in 2019 because of a CVA. She has had this since then and she undergoes peg tube feeds. She came to the emergency room today after the PEG tube apparently came out accidentally early this morning. I was asked by the emergency room physician to see her as she could not advance the PEG tube back into the stomach. The patient otherwise denies any significant complaints. She is actually answering some questions well. She did state that she still uses the PEG tube. Review of Systems Constitutional: Constitutional: Denies chills and Denies fever(s) Cardiovascular: Cardiovascular: Denies chest pain, Denies dyspnea and Reports dyspnea on exertion Respiratory: Respiratory: Denies cough, Denies dyspnea and Reports dyspnea on exertion Gastrointestinal: Gastrointestinal: Denies hematochezia and Denies change in bowel habits Genitourinary: Genitourinary: Denies hematuria Musculoskeletal: Musculoskeletal: Denies back pain and Denies limited range of motion Neurologic: Denies focal weakness and Denies convulsions Psychiatric: Psychiatric: Denies depression and Denies mood swings [facility] Past Medical History Medical History (Updated 01/12/21 @ 15:39 by Jax Soria MD) Anemia Anemia Bacteremia due to Staphylococcus Bipolar disorder Chronic diarrhea Constipation COPD (chronic obstructive pulmonary disease) Diabetes Diastolic CHF Diastolic dysfunction Dislodged gastrostomy tube Diverticulitis Dyspnea ESRD (end stage renal disease) ESRD (end stage renal disease) Hyperlipidemia Hypertension Pneumonia Renal failure Thrombocytopenia Social History Social History Household Members: Children Household Members Other:: daughter Housing: Apartment Do you presently have visiting nurse or other home services: No Unable to assess alcohol history related to: Unknown Alcohol intake: never Years Smoked: many years Advance Directives: Yes Advance Directives on File: Yes Advance Directives Date on File: 06/12/20 service: No Current occupational status: retired and disabled Meds Allergies Allergy/AdvReac Type Severity Reaction Status Date / Time Penicillins Allergy Severe Anaphylaxis, Verified 01/05/21 08:49 hives acetaminophen [From TYLENOL] Allergy Unknown Unknown Verified 01/05/21 08:49 aspirin [ASPIRIN] Allergy Unknown rash, Verified 01/05/21 08:49 stomach upset diazepam [From VALIUM] Allergy Unknown RESP Verified 01/05/21 08:49 FAILURE penicillin V Allergy Unknown edema Verified 01/05/21 08:49 metformin [Metformin] AdvReac Mild DIARRHEA Verified 01/05/21 08:49 Home Medications Medication Instructions Recorded Confirmed Last Taken Type atorvastatin 40 mg tablet 40 mg PO BEDTIME 04/24/20 01/05/21 Unknown History cholecalciferol (vitamin D3) 50 50 mcg PO QAM 04/24/20 01/05/21 Unknown History mcg (2,000 unit) tablet metoprolol tartrate 25 mg tablet 25 mg PO BID 04/24/20 01/05/21 Unknown History bumetanide 2 mg tablet 4 mg PO SUTUTHSA@0800,1700 07/16/20 01/05/21 Unknown History clopidogrel 75 mg tablet 1 tab PO BEDTIME 07/16/20 01/05/21 Unknown History fluoxetine 20 mg/5 mL (4 mg/mL) 5 ml PO DAILY 07/16/20 01/05/21 Unknown History oral solution lorazepam 0.5 mg tablet 1 tab PO DAILY PRN 07/16/20 01/05/21 Unknown History quetiapine 25 mg tablet 25 mg PO BEDTIME PRN 07/16/20 01/05/21 Unknown History umeclidinium 62.5 mcg-vilanterol 1 puff INHALATION DAILY 07/16/20 01/05/21 Unknown History 25 mcg/actuation powdr for inhalation (Anoro Ellipta) nystatin 100,000 unit/gram topical 1 appl TOPICAL BID-TID 01/05/21 01/05/21 Unknown History powder Physical Exam Vital Signs: Vital Signs: Last Vital Signs Temp 99.1 F 01/12/21 14:10 Pulse 73 01/12/21 15:08 Resp 20 01/12/21 15:08 BP 132/52 L 01/12/21 15:08 Pulse Ox 100 01/12/21 15:08 Body Mass Index 32.9 Const: General: comfortable and no acute distress Resp: Effort & Inspection: normal respiratory effort Cardio: Rate: regular rate GI: Other: Soft, obese, nontender, PEG site on the left upper quadrant, peg tube not in place Results Labs Labs: All other labs normal. Assessment and Plan (1) Dislodged gastrostomy tube: Status: Acute She has had a PEG tube since 2019. The current PEG tube was dislodged early this morning. I attempted to reinsert a Portuguese 18 zayra tube but it that is not seem to go past the fascia. I therefore used a Portuguese 16 zayra tube which went through easily without any resistance nor problems. I injected the feeding tube with 30 cc of normal saline and this went through without any problems. She did not complain of any pain. Since she has had a well-formed tract already from the stone 19, I do not feel it is necessary to do a gastrograffin study. I was also able to aspirate gastric contents easily from the feeding tube. Procedures Date of Service Date of Service: 01/12/21
== END 2021-01-12 16:22 | disposition home or self-care (01) ==
PROVIDERS: Emergency Provider Emergency Medicine; PCP Family Medicine
DX: T85.528A Displacement of other gastrointestinal prosthetic devices, implants and grafts, initial encounter (principal); E11.22 Type 2 diabetes mellitus with diabetic chronic kidney disease; I13.2 Hypertensive heart and chronic kidney disease with heart failure and with stage 5 chronic kidney disease, or end stage renal disease; I50.30 Unspecified diastolic (congestive) heart failure; N18.6 End stage renal disease
CPT/HCPCS: 43762; 99284

== ENCOUNTER 2021-05-05 10:44 | Emergency (ER) | payer MEDICARE, MEDICAID, SELFPAY ==
--- NOTE | ~2021-05-05 | XR_ITS ---
EXAMINATION: XR CHEST CLINICAL INFORMATION: Chest pain COMPARISON: 07/12/2020 TECHNIQUE: Portable semiupright 1:23 PM view of the chest was obtained. FINDINGS: Low lung volumes. Left-sided central line remains in place with its tip overlying the right atrium. Severe scoliosis convex right. Superimposed on chronic lung disease is patchy peripheral infiltrates most consistent atypical infection. G-tube in place. Clips consistent with cholecystectomy. No pleural disease or overt CHF. Heart size remains enlarged. XR/XR chest 1V IMPRESSION: Superimposed atypical infection pattern superimposed on chronic lung disease.
[2021-05-05 11:02] VITALS: BP 130/70; PULSE 88
[2021-05-05 11:29] VITALS: BP 94/73; PULSE 86; RESP 16; TEMP 36.7; O2SAT 100; BMI 36.3
--- NOTE | 2021-05-05 12:37 | ECG_ITS ---
Test Reason : WEAKNESS Blood Pressure : / mmHG Vent. Rate : 088 BPM Atrial Rate : 088 BPM P-R Int : 126 ms QRS Dur : 082 ms QT Int : 370 ms P-R-T Axes : 035 042 015 degrees QTc Int : 447 ms Sinus rhythm with occasional Premature ventricular complexes Nonspecific ST and T wave abnormality Abnormal ECG When compared with ECG of 12-JUL-2020 18:42, Premature ventricular complexes are now Present Referred By: Jax Edwards Electronically Signed By:PARKER FLOWER
--- NOTE | 2021-05-05 13:04 | ED_ITS ---
HPI - Weakness General Chief complaint: Weakness Stated complaint: WEAKNESS,S/P COMPLETE DIALYSIS Time Seen by Provider: 05/05/21 12:32 Source: patient Mode of arrival: EMS Limitations: language barrier ([place] speaking only, certified court/medical interpreter used) History of Present Illness HPI Narrative: 70-year-old female presents emergency department for evaluation of weakness. The patient has end-stage renal disease and is dialyzed on Monday, Monday and Fridays. She states she completed her dialysis today but after dialysis she started to feel very weak. She states she was feeling lightheaded and dizzy. She states that she had a headache. She also felt short of breath. She states that these symptoms have resolved since being in the emergency department. She states that she has had a cough for the past several days which is occasionally productive bloody sputum. She denied nausea, vomiting, fever, chills, abdominal pain. She states that she makes urine but has not noted any dysuria. Related Data Home Medications Medication Instructions Recorded Confirmed atorvastatin 40 mg tablet 40 mg PO BEDTIME 04/24/20 01/05/21 cholecalciferol (vitamin D3) 50 50 mcg PO QAM 04/24/20 01/05/21 mcg (2,000 unit) tablet metoprolol tartrate 25 mg tablet 25 mg PO BID 04/24/20 01/05/21 bumetanide 2 mg tablet 4 mg PO SUTUTHSA@0800,1700 07/16/20 01/05/21 clopidogrel 75 mg tablet 1 tab PO BEDTIME 07/16/20 01/05/21 fluoxetine 20 mg/5 mL (4 mg/mL) 5 ml PO DAILY 07/16/20 01/05/21 oral solution lorazepam 0.5 mg tablet 1 tab PO DAILY PRN 07/16/20 01/05/21 quetiapine 25 mg tablet 25 mg PO BEDTIME PRN 07/16/20 01/05/21 umeclidinium 62.5 mcg-vilanterol 1 puff INHALATION DAILY 07/16/20 01/05/21 25 mcg/actuation powdr for inhalation (Anoro Ellipta) nystatin 100,000 unit/gram topical 1 appl TOPICAL BID-TID 01/05/21 01/05/21 powder Previous Rx's Medication Instructions Recorded isosorbide mononitrate 30 mg 30 mg PO DAILY #30 tab 07/17/20 tablet,extended release 24 hr levofloxacin 250 mg tablet 250 mg PO Q48H #6 tab 07/17/20 metronidazole 500 mg tablet 500 mg PO Q8H #36 tab 07/17/20 loperamide 1 mg/7.5 mL oral liquid 1 mg (7.5 mL) PO DAILY #120 ml 01/05/21 (Imodium A-D) loperamide 1 mg/7.5 mL oral liquid 1 mg (7.5 mL) PO DAILY #120 ml 03/02/21 (Imodium A-D) Allergies Allergy/AdvReac Type Severity Reaction Status Date / Time Penicillins Allergy Severe Anaphylaxis, Verified 01/05/21 08:49 hives acetaminophen [From TYLENOL] Allergy Unknown Unknown Verified 01/05/21 08:49 aspirin [ASPIRIN] Allergy Unknown rash, Verified 01/05/21 08:49 stomach upset diazepam [From VALIUM] Allergy Unknown RESP Verified 01/05/21 08:49 FAILURE penicillin V Allergy Unknown edema Verified 01/05/21 08:49 metformin [Metformin] AdvReac Mild DIARRHEA Verified 01/05/21 08:49 Review of Systems Review of Systems: Yes all other systems are reviewed and are negative [facility] Past Medical History Medical History Anemia Anemia Bacteremia due to Staphylococcus Bipolar disorder Chronic diarrhea Constipation COPD (chronic obstructive pulmonary disease) Diabetes Diastolic CHF Diastolic dysfunction Dislodged gastrostomy tube Diverticulitis Dyspnea ESRD (end stage renal disease) ESRD (end stage renal disease) Hyperlipidemia Hypertension Pneumonia Renal failure Thrombocytopenia Social History Social History Household Members: Children Household Members Other:: daughter Housing: Apartment Do you presently have visiting nurse or other home services: No Unable to assess alcohol history related to: Unknown Alcohol intake: never Years Smoked: many years Advance Directives: Yes Advance Directives on File: Yes Advance Directives Date on File: 06/12/20 service: No Current occupational status: retired and disabled Physical Exam Vital Signs: Vital Signs: Last Vital Signs Temp 98.0 F 05/05/21 11:29 Pulse 86 05/05/21 14:54 Resp 18 05/05/21 14:54 BP 152/69 H 05/05/21 14:54 Pulse Ox 100 05/05/21 14:54 BMI result Body Mass Index 36.3 Const: Other: Awake, alert, female patient, very pleasant and cooperative, oriented to person and place, answers all questions appropriately HENMT: Head: Yes normal to inspection, Yes normocephalic and Yes atraumatic Ears: external ears normal General nose exam: Normal external nose present Face and sinus: Yes normal facial exam Mouth: Normal oral and palatal mucosa present Throat: Yes posterior oropharynx normal Eyes: General: appearance normal, both eyes and all related structures Pupils: Equal, round and reactive pupils present Neck: Neck: Yes normal visual inspection, Yes no lymphadenopathy, Yes trachea midline and Yes supple Chest: Chest palpation & inspection: normal inspection of the chest and normal palpation of entire chest wall Resp: Effort & Inspection: normal respiratory effort and able to speak in complete sentences Auscultation: clear to auscultation bilaterally Cardio: Rate: regular rate Rhythm: regular rhythm Heart sounds: S1 normal heart sound present, S2 normal heart sound present and no murmurs GI: Inspection: Yes normal to inspection and Yes obesity Palpation (GI): Soft to palpation, nontender and no guarding Auscultation: normal bowel sounds : General: Yes no CVA tenderness Back/Spine/Pelvis: Back: no CVA tenderness Skin: General skin exam: no rashes or lesions noted Neuro: Cranial nerves: Yes CN's II-XII intact bilaterally and Yes Equal, round and reactive pupils present Cognition (Neuro): normal cognition Motor exam (neuro): 5/5 motor strength present throughout Extrem: General: Yes normal to inspection Psych: Appearance: grossly normal Speech and movement: Normal speech and movement present Affect: normal affect Attitude: cooperative Thought process: Normal thought process present Thought content: Normal thought content present Course Course Course Narrative: 70-year-old female who presents emergency department for evaluation of weakness after completing her dialysis today. The patient states that her symptoms have resolved since she has been here in the emergency department. The patient has had a cough over the past several days and she st ates that is occasionally productive of bloody sputum. Vital signs were normal. The patient's physical examination was unremarkable. The patient's weakness is most likely secondary to taking off fluid from her dialysis this morning. I will check COVID-19, influenza, RSV CBC, CMP, lipase, EKG and chest x-ray. If the patient can produce a urine we will send the it for urinalysis as well. 1600: Laboratory evaluation: [place] [address], elevated bicarb 30, elevated creatinine of 2.25, normal potassium at 3.5. Chest x-ray was interpreted as superimposed atypical infection pattern on chronic lung disease however in reviewing the patient's previous x-rays, today's x-ray is unchanged in these findings are chronic. COVID-19, influenza and RSV were negative. Patient states that she is feeling fine, she has no complaints and feels like she is back to her baseline. The patient will be discharged home. MDM - Weakness Lab Data Result diagrams: 05/05/21 14:52 05/05/21 14:52 Labs: Lab Results 05/05/21 05/05/21 05/05/21 Range/Units 14:52 14:52 14:52 WBC 6.8 (4.8-10.8) X10*3/uL RBC 3.15 L (4.20-5.50) X10*6/uL Hgb 10.2 L (12.0-16.0) g/dl Hct 31.8 L (37.0-47.0) % MCV 101.0 H (80.0-98.0) fL MCH 32.4 (27.0-33.0) pg MCHC 32.1 (31.0-35.0) g/dl RDW 13.6 (11.0-16.0) % Plt Count 71 L (160-400) X10*3/uL MPV 12.5 H (9.4-12.3) fL Immature Gran % (Auto) 0.4 (0.0-0.4) % Neut % (Auto) 73.7 H (45-73) % Lymph % (Auto) 13.2 L (20-40) % [place] % (Auto) 8.8 (2-11) % Eos % (Auto) 3.2 (0-4) % Baso % (Auto) 0.7 (0-2) % Lymph # (Auto) 0.9 L (1.2-4.9) X10*3/uL [place] # (Auto) 0.6 (0.1-1.2) X10*3/uL Eos # (Auto) 0.2 (0.0-0.4) X10*3/uL Baso # (Auto) 0.1 (0.0-0.2) X10*3/uL Abs Immat Gran (auto) 0.03 (0.00-0.03) X10*3/uL Absolute Neuts (auto) 5.0 (2.0-8.3) x10*3/uL Absolute Nucleated RBC 0.000 (0.0-0.012) X10*3/uL Nucleated RBC % (auto) 0.0 (0.0-0.2) /100WBC Sodium 136 (135-145) mmol/L Potassium 3.5 (3.3-5.1) mmol/L Chloride 101 (96-108) mmol/L Carbon Dioxide 30 H (22-29) mmol/L Anion Gap 9 L (12-20) BUN 16 (9-16) mg/dL Creatinine 2.25 H (0.5-1.4) mg/dL Estim Creat Clear Calc 22.1 Estimated GFR 21 Random Glucose 192 H (60-115) mg/dL Calcium 7.4 L (8.4-10.2) mg/dL Total Bilirubin 0.9 (0.0-1.0) mg/dL AST 33 H D (5-31) U/L ALT 28 (0-31) U/L Alkaline Phosphatase 332 H D (39-117) U/L Total Protein 6.9 (6.5-8.0) g/dL Albumin 2.6 L D (3.5-5.0) g/dL Lipase 121 H (8-78) U/L Influenza Type A (PCR) NEGATIVE (Negative) Influenza Type B (PCR) NEGATIVE (Negative) RSV RNA Qual (PCR) NEGATIVE (Negative) SARS-CoV-2 RNA (RT-PCR) NEGATIVE (Negative) Discharge Plan Discharge Clinical Impression: Weakness, Dizziness Patient Disposition: Home, Self-Care Additional Instructions: Your laboratory evaluation was unremarkable. Your RSV, COVID-19 and influenza tests were negative as well. Your chest x-ray is unchanged from your previous chest x-rays. I do not think that you have pneumonia as the cause of your weakness. At this time, I believe that your weakness is probably related to your dialysis. Sometimes after dialysis people can feel weak, lightheaded and dizzy. Follow-up with your doctor in 2 days. Please return to the emergency department if your symptoms get worse or if you develop any symptoms that are concerning to you. Prescriptions: No Action loperamide [Imodium A-D] 1 mg/7.5 mL liquid 1 mg PO DAILY Qty: 120 RF: 0 atorvastatin 40 mg tablet 40 mg PO BEDTIME RF: 0 metoprolol tartrate 25 mg tablet 25 mg PO BID RF: 0 cholecalciferol (vitamin D3) 50 mcg (2,000 unit) tablet 50 mcg PO QAM RF: 0 bumetanide 2 mg Tablet 4 mg PO SUTUTHSA@0800,1700 RF: 0 fluoxetine 20 mg/5 mL (4 mg/mL) solution 5 ml PO DAILY RF: 0 quetiapine 25 mg tablet 25 mg PO BEDTIME PRN (Reason: Sleep) RF: 0 clopidogrel 75 mg tablet 1 tab PO BEDTIME RF: 0 lorazepam 0.5 mg tablet 1 tab PO DAILY PRN (Reason: Anxiety) RF: 0 Anoro Ellipta 62.5-25 mcg/actuation blister with device 1 puff inhalation DAILY RF: 0 isosorbide mononitrate 30 mg tablet extended release 24 hr 30 mg PO DAILY Qty: 30 RF: 0 metronidazole 500 mg Tablet 500 mg PO Q8H Qty: 36 RF: 0 levofloxacin 250 mg Tablet 250 mg PO Q48H Qty: 6 RF: 0 nystatin 100,000 unit/gram powder 1 appl topical BID-TID RF: 0 loperamide [Imodium A-D] 1 mg/7.5 mL liquid 1 mg PO DAILY Qty: 120 RF: 0
[2021-05-05 14:54] VITALS: BP 152/69; PULSE 86; RESP 18; O2SAT 100
[2021-05-05 15:00] LABS: MANUAL DIFF FLAG NO
[2021-05-05 15:16] LABS: Basophils Absolute Auto 0.1 X10*3/uL (0.0-0.2); Basophils Percent Auto 0.7 % (0-2); Eosinophils Absolute Auto 0.2 X10*3/uL (0.0-0.4); Eosinophils Percent Auto 3.2 % (0-4); Hematocrit 31.8 % (37.0-47.0); Hemoglobin 10.2 g/dl (12.0-16.0); Imm Gran Abs Auto 0.03 X10*3/uL (0.00-0.03); Imm Gran Pct Auto 0.4 % (0.0-0.4); Lymphocytes Absolute Auto 0.9 X10*3/uL (1.2-4.9); Lymphocytes Percent Auto 13.2 % (20-40); Mean Corpuscular HGB Conc 32.1 g/dl (31.0-35.0); Mean Corpuscular Hemoglobin 32.4 pg (27.0-33.0); Mean Platelet Volume 12.5 fL (9.4-12.3); Monocytes Absolute Auto 0.6 X10*3/uL (0.1-1.2); Monocytes Percent Auto 8.8 % (2-11); Neutrophils Percent Auto 73.7 % (45-73); Red Blood Count 3.15 X10*6/uL (4.20-5.50); Red Cell Distribution Width 13.6 % (11.0-16.0); White Blood Count 6.8 X10*3/uL (4.8-10.8)
[2021-05-05 15:17] LABS: Alanine Aminotransferase 28 U/L (0-31); Albumin Level 2.6 g/dL (3.5-5.0); Alkaline Phosphatase 332 U/L (39-117); Anion Gap 9 (12-20); Aspartate Amino Transferase 33 U/L (5-31); Bilirubin Total 0.9 mg/dL (0.0-1.0); Blood Urea Nitrogen 16 mg/dL (9-16); Calcium 7.4 mg/dL (8.4-10.2); Carbon Dioxide 30 mmol/L (22-29); Chloride 101 mmol/L (96-108); Creatinine Clr Calc Pharmacy 22.1; Estimated Glomerular Filt Rate 21; Glucose Random 192 mg/dL (60-115); Lipase 121 U/L (8-78); Potassium 3.5 mmol/L (3.3-5.1); Sodium 136 mmol/L (135-145); Total Protein 6.9 g/dL (6.5-8.0)
[2021-05-05 15:23] LABS: Platelet Count 71 X10*3/uL (160-400)
[2021-05-05 15:39] LABS: Influenza A PCR NEGATIVE (Negative); Influenza B PCR NEGATIVE (Negative); Resp Syncy Virus RNA Qual PCR NEGATIVE (Negative); SARS COV2 PCR INHOUSE NEGATIVE (Negative)
--- NOTE | 2021-05-05 16:40 | PC.NURSE ---
PT WILL BE DISCHARGED HOME DAUGHTER AWARE
[2021-05-05 18:11] VITALS: BP 151/65; PULSE 85; RESP 14; O2SAT 100
== END 2021-05-05 19:24 | disposition home or self-care (01) ==
PROVIDERS: Emergency Provider Emergency Medicine Emergency Medical Services; PCP Family Medicine
DX: R53.1 Weakness (principal); R07.9 Chest pain, unspecified; Z20.822 Contact with and (suspected) exposure to COVID-19; Z79.899 Other long term (current) drug therapy
CPT/HCPCS: 0241U; 36415; 71045; 80053; 83690; 85025; 93005; 99284

== ENCOUNTER 2021-05-06 15:29 | Emergency (ER) | payer MEDICARE, MEDICAID, SELFPAY ==
--- NOTE | ~2021-05-06 | XR_ITS ---
EXAMINATION: XR ABDOMEN KUB CLINICAL INDICATION: G-tube placement COMPARISON: 07/15/2020 TECHNIQUE: AP view of the abdomen. FINDINGS: Gastrostomy tube overlies the stomach. Contrast seen in the gastric fundus, confirming intraluminal positioning. Small amount of contrast also present in the duodenum. Nonobstructive bowel gas pattern. Prominent markings at the lung bases. Central venous catheter overlies the right atrium. Degenerative changes of the spine. Lower thoracic kyphoplasty noted. XR/XR KUB IMPRESSION: Gastrostomy tube positioned in the stomach.
[2021-05-06 16:37] VITALS: BP 134/60; PULSE 72; RESP 18; TEMP 36.8; O2SAT 97; BMI 34.9
--- NOTE | 2021-05-06 17:06 | ED.GENADULT ---
HPI - General Adult General Chief complaint: General Medical Stated complaint: G TUBE PLACMENT Time Seen by Provider: 05/06/21 15:51 Source: patient and family Limitations: no limitations History of Present Illness HPI narrative: Patient presents to the ER after PEG G-tube fellow. Patient is taking care of at home by daughters. Case discussed with daughter she believes the patient pulled the G tube out. When talking to the patient via the staff interpreter she says it fell out accidentally while they were changing her diaper secondary to a bowel movement patient is without any complaints at this time denies nausea vomiting abdominal pain. Related Data Home Medications Medication Instructions Recorded Confirmed atorvastatin 40 mg tablet 40 mg PO BEDTIME 04/24/20 01/05/21 cholecalciferol (vitamin D3) 50 50 mcg PO QAM 04/24/20 01/05/21 mcg (2,000 unit) tablet metoprolol tartrate 25 mg tablet 25 mg PO BID 04/24/20 01/05/21 bumetanide 2 mg tablet 4 mg PO SUTUTHSA@0800,1700 07/16/20 01/05/21 clopidogrel 75 mg tablet 1 tab PO BEDTIME 07/16/20 01/05/21 fluoxetine 20 mg/5 mL (4 mg/mL) 5 ml PO DAILY 07/16/20 01/05/21 oral solution lorazepam 0.5 mg tablet 1 tab PO DAILY PRN 07/16/20 01/05/21 quetiapine 25 mg tablet 25 mg PO BEDTIME PRN 07/16/20 01/05/21 umeclidinium 62.5 mcg-vilanterol 1 puff INHALATION DAILY 07/16/20 01/05/21 25 mcg/actuation powdr for inhalation (Anoro Ellipta) nystatin 100,000 unit/gram topical 1 appl TOPICAL BID-TID 01/05/21 01/05/21 powder Previous Rx's Medication Instructions Recorded isosorbide mononitrate 30 mg 30 mg PO DAILY #30 tab 07/17/20 tablet,extended release 24 hr levofloxacin 250 mg tablet 250 mg PO Q48H #6 tab 07/17/20 metronidazole 500 mg tablet 500 mg PO Q8H #36 tab 07/17/20 loperamide 1 mg/7.5 mL oral liquid 1 mg (7.5 mL) PO DAILY #120 ml 01/05/21 (Imodium A-D) loperamide 1 mg/7.5 mL oral liquid 1 mg (7.5 mL) PO DAILY #120 ml 03/02/21 (Imodium A-D) Allergies Allergy/AdvReac Type Severity Reaction Status Date / Time Penicillins Allergy Severe Anaphylaxis, Verified 01/05/21 08:49 hives acetaminophen [From TYLENOL] Allergy Unknown Unknown Verified 01/05/21 08:49 aspirin [ASPIRIN] Allergy Unknown rash, Verified 01/05/21 08:49 stomach upset diazepam [From VALIUM] Allergy Unknown RESP Verified 01/05/21 08:49 FAILURE penicillin V Allergy Unknown edema Verified 01/05/21 08:49 metformin [Metformin] AdvReac Mild DIARRHEA Verified 01/05/21 08:49 Review of Systems Constitutional: Constitutional: Denies chills, Denies fever(s) and Denies headache(s) ENT: Denies headache(s) Cardiovascular: Cardiovascular: Denies chest pain and Denies dyspnea Respiratory: Respiratory: Denies dyspnea Gastrointestinal: Gastrointestinal: Denies nausea and Denies vomiting Musculoskeletal: Musculoskeletal: Denies back pain Neurologic: Denies headache(s) [facility] Past Medical History Attestation statement: The following information was validated with the patient. Medical History Anemia Anemia Bacteremia due to Staphylococcus Bipolar disorder Chronic diarrhea Constipation COPD (chronic obstructive pulmonary disease) Diabetes Diastolic CHF Diastolic dysfunction Dislodged gastrostomy tube Diverticulitis Dyspnea ESRD (end stage renal disease) ESRD (end stage renal disease) Hyperlipidemia Hypertension Pneumonia Renal failure Thrombocytopenia Social History Social History Household Members: Children Household Members Other:: daughter Housing: Apartment Do you presently have visiting nurse or other home services: No Unable to assess alcohol history related to: Unknown Alcohol intake: never Years Smoked: many years Advance Directives: Yes Advance Directives on File: Yes Advance Directives Date on File: 06/12/20 service: No Current occupational status: retired and disabled Physical Exam Vital Signs: Vital Signs: Last Vital Signs Temp 98.3 F 05/06/21 16:37 Pulse 72 05/06/21 16:37 Resp 18 05/06/21 16:37 BP 134/60 05/06/21 16:37 Pulse Ox 97 05/06/21 16:37 Oxygen Flow Rate 3 05/06/21 16:37 BMI result Body Mass Index 34.9 vital signs have been reviewed as normal and appeared to be correct. Blood pressure normal. Heart rate normal. Respiration rate normal. Temperature normal. Oxygen saturation normal. Appearance: Alert. Oriented X3. No acute distress. Head: Normal external exam. Normocephalic. Eyes: PERRLA. EOMI. Conjunctiva and sclera normal. ENT: Pharynx normal. Uvula midline. Moist mucous membranes. Neck: Soft full range of motion, no JVD CVS: Heart regular rate and rhythm no murmurs and rubs Respiratory: Breath sounds are clear to auscultation bilaterally. No accessory muscle use noted. Abdomen: Abdomen is soft no rebound or guarding midline G-tube PEG placement has fallen out. Back: No CVA tenderness. Full range of motion noted. Skin: Skin warm and dry Neuro: Oriented X 3. No motor deficit. No sensory deficit. Reflexes normal. Course Course Course Narrative: G-tube malfunction G-tube PEG replacement Case discussed with Dr. Lemus he has replaced the G-tube with an 18 [place] patient tolerated well procedure performed by Dr. Lemus Is replaced the PEG G-tube and Gastrografin applied KUB pending for placement Plan to discharge home. Will let family know 5:30 p.m. patient's family member aware the patient will be discharged to home the ambulance case discussed with daughter Henrietta Discharge Plan Discharge Clinical Impression: Malfunction of gastrostomy tube Prescriptions: No Action loperamide [Imodium A-D] 1 mg/7.5 mL liquid 1 mg PO DAILY Qty: 120 RF: 0 atorvastatin 40 mg tablet 40 mg PO BEDTIME RF: 0 metoprolol tartrate 25 mg tablet 25 mg PO BID RF: 0 cholecalciferol (vitamin D3) 50 mcg (2,000 unit) tablet 50 mcg PO QAM RF: 0 bumetanide 2 mg Tablet 4 mg PO SUTUTHSA@0800,1700 RF: 0 fluoxetine 20 mg/5 mL (4 mg/mL) solution 5 ml PO DAILY RF: 0 quetiapine 25 mg tablet 25 mg PO BEDTIME PRN (Reason: Sleep) RF: 0 clopidogrel 75 mg tablet 1 tab PO BEDTIME RF: 0 lorazepam 0.5 mg tablet 1 tab PO DAILY PRN (Reason: Anxiety) RF: 0 Anoro Ellipta 62.5-25 mcg/actuation blister with device 1 puff inhalation DAILY RF: 0 isosorbide mononitrate 30 mg tablet extended release 24 hr 30 mg PO DAILY Qty: 30 RF: 0 metronidazole 500 mg Tablet 500 mg PO Q8H Qty: 36 RF: 0 levofloxacin 250 mg Tablet 250 mg PO Q48H Qty: 6 RF: 0 nystatin 100,000 unit/gram powder 1 appl topical BID-TID RF: 0 loperamide [Imodium A-D] 1 mg/7.5 mL liquid 1 mg PO DAILY Qty: 120 RF: 0
--- NOTE | 2021-05-06 17:39 | PC.NURSE ---
FEEDING TUBE REPLACED BY DR OLIVEIRA. PT TO RETURN HOME BY AMBULANCE.
[2021-05-06 18:37] VITALS: BP 143/57; PULSE 77; RESP 16; O2SAT 100
== END 2021-05-06 19:59 | disposition home or self-care (01) ==
PROVIDERS: Emergency Provider Internal Medicine
DX: K94.23 Gastrostomy malfunction (principal); Y83.3 Surgical operation with formation of external stoma as the cause of abnormal reaction of the patient, or of later complication, without mention of misadventure at the time of the procedure; Y92.9 Unspecified place or not applicable; E11.22 Type 2 diabetes mellitus with diabetic chronic kidney disease; I13.2 Hypertensive heart and chronic kidney disease with heart failure and with stage 5 chronic kidney disease, or end stage renal disease; I50.30 Unspecified diastolic (congestive) heart failure; N18.6 End stage renal disease
CPT/HCPCS: 43762; 74018; 99283; 99284

== ENCOUNTER 2021-05-26 16:34 | Emergency (ER) | payer MEDICARE, MEDICAID, SELFPAY ==
--- NOTE | ~2021-05-26 | XR_ITS ---
EXAMINATION: XR CHEST CLINICAL INFORMATION: Shortness of breath COMPARISON: Multiple prior studies. Most recent is a Chest x-ray 05/05/2021 TECHNIQUE: Frontal portable view of the chest was obtained. 5:17 PM FINDINGS: Left IJ central port catheter tip in right atrium unchanged position since prior study. Heart size is enlarged. Vascular calcifications of aorta. Diffuse increased interstitial lung markings with prominence of the central pulmonary vessels. This is similar to multiple prior studies. May be due to interstitial edema, pulmonary edema versus multifocal pneumonia. XR/XR chest 1V IMPRESSION: Diffuse increased interstitial lung markings and prominence of central pulmonary vessels. No significant change since multiple prior studies. Interstitial edema with mild pulmonary edema versus multifocal pneumonia.
[2021-05-26 17:04] VITALS: BP 124/54; PULSE 82; O2SAT 100
[2021-05-26 17:12] VITALS: BP 154/56; PULSE 89; RESP 22; TEMP 37.2; O2SAT 97; BMI 40.2
--- NOTE | 2021-05-26 17:14 | ED.SOB ---
HPI - SOB/Dyspnea General Chief Complaint: Dyspnea Stated Complaint: SOB Time Seen by Provider: 05/26/21 17:14 Source: patient Mode of arrival: EMS History of Present Illness HPI Narrative: Patient's history of end-stage renal disease on dialysis, asthma came by EMS because of been feeling short of breath since yesterday use her inhaler without much relief patient had full dialysis today and called ambulance from home as she was still feeling short of dry cough with no chest pain no leg swelling feel weak and tired has received 2 shots of COVID vaccine Related Data Home Medications Medication Instructions Recorded Confirmed atorvastatin 40 mg tablet 40 mg PO BEDTIME 04/24/20 01/05/21 cholecalciferol (vitamin D3) 50 50 mcg PO QAM 04/24/20 01/05/21 mcg (2,000 unit) tablet metoprolol tartrate 25 mg tablet 25 mg PO BID 04/24/20 01/05/21 bumetanide 2 mg tablet 4 mg PO SUTUTHSA@0800,1700 07/16/20 01/05/21 clopidogrel 75 mg tablet 1 tab PO BEDTIME 07/16/20 01/05/21 fluoxetine 20 mg/5 mL (4 mg/mL) 5 ml PO DAILY 07/16/20 01/05/21 oral solution lorazepam 0.5 mg tablet 1 tab PO DAILY PRN 07/16/20 01/05/21 quetiapine 25 mg tablet 25 mg PO BEDTIME PRN 07/16/20 01/05/21 umeclidinium 62.5 mcg-vilanterol 1 puff INHALATION DAILY 07/16/20 01/05/21 25 mcg/actuation powdr for inhalation (Anoro Ellipta) nystatin 100,000 unit/gram topical 1 appl TOPICAL BID-TID 01/05/21 01/05/21 powder Previous Rx's Medication Instructions Recorded isosorbide mononitrate 30 mg 30 mg PO DAILY #30 tab 07/17/20 tablet,extended release 24 hr levofloxacin 250 mg tablet 250 mg PO Q48H #6 tab 07/17/20 metronidazole 500 mg tablet 500 mg PO Q8H #36 tab 07/17/20 loperamide 1 mg/7.5 mL oral liquid 1 mg (7.5 mL) PO DAILY #120 ml 01/05/21 (Imodium A-D) loperamide 1 mg/7.5 mL oral liquid 1 mg (7.5 mL) PO DAILY #120 ml 03/02/21 (Imodium A-D) albuterol sulfate 90 mcg/actuation 2 puff INHALATION Q4-6H PRN #8.5 g 05/26/21 aerosol inhaler (ProAir HFA) Allergies Allergy/AdvReac Type Severity Reaction Status Date / Time Penicillins Allergy Severe Anaphylaxis, Verified 01/05/21 08:49 hives acetaminophen [From TYLENOL] Allergy Unknown Unknown Verified 01/05/21 08:49 aspirin [ASPIRIN] Allergy Unknown rash, Verified 01/05/21 08:49 stomach upset diazepam [From VALIUM] Allergy Unknown RESP Verified 01/05/21 08:49 FAILURE penicillin V Allergy Unknown edema Verified 01/05/21 08:49 metformin [Metformin] AdvReac Mild DIARRHEA Verified 01/05/21 08:49 Review of Systems Review of Systems: Yes all other systems are reviewed and are negative PMFSH Past Medical History Medical History Anemia Anemia Bacteremia due to Staphylococcus Bipolar disorder Chronic diarrhea Constipation COPD (chronic obstructive pulmonary disease) Diabetes Diastolic CHF Diastolic dysfunction Dislodged gastrostomy tube Diverticulitis Dyspnea ESRD (end stage renal disease) ESRD (end stage renal disease) Hyperlipidemia Hypertension Pneumonia Renal failure Thrombocytopenia Social History Social History Household Members: Children Household Members Other:: daughter Housing: Apartment Do you presently have visiting nurse or other home services: No Unable to assess alcohol history related to: Unknown Alcohol intake: never Years Smoked: many years Advance Directives: Yes Advance Directives on File: Yes Advance Directives Date on File: 06/12/20 service: No Current occupational status: retired and disabled Physical Exam Vital Signs: Vital Signs: Last Vital Signs Temp 99 F 05/26/21 17:12 Pulse 85 05/26/21 19:46 Resp 20 05/26/21 19:46 BP 154/56 H 05/26/21 17:12 Pulse Ox 97 05/26/21 17:12 BMI result Body Mass Index 40.2 Appearance: Alert. Oriented X3. No acute distress. Eyes: pallor+ ENT: Pharynx normal. Oral Mucosa moist Neck: Normal inspection. Neck supple. CVS: Normal heart rate and rhythm. Pulses normal. Respiratory: No respiratory distress. Equal air entry bilateral, occasional rhonchi posteriorly Abdomen: Soft and nontender. Bowel sounds are present, no mass palpable, no CVA tenderness Skin: Skin warm and dry. Normal skin color. Normal skin turgor. Extremities: No lower extremity edema. No calf tenderness Neuro: Oriented X 3. No motor deficit. MDM - SOB/Dyspnea MDM Narrative Medical decision making narrative: . Increased shortness of breath with history of asthma chronic lung disease chest x-ray showed diffuse infiltrate bilateral which seems to be chronic seen in multiple CT scan and x-rays for last 1 year no leukocytosis repeat PCR COVID also negative patient feel much better after albuterol treatment saturating 96% at room air white counts are normal labs are stable will discharge patient had elevated blood sugar insulin was given in the ER repeat blood sugar improved Differential Diagnosis Differential diagnosis: Likely asthma with exacerbation Lab Data Attestation: I reviewed the patient's lab results. Result diagrams: 05/26/21 18:39 05/26/21 18:39 Labs: Lab Results 05/26/21 05/26/21 05/26/21 Range/Units 18:39 18:39 18:39 WBC 4.5 L (4.8-10.8) X10*3/uL RBC 3.32 L (4.20-5.50) X10*6/uL Hgb 10.9 L (12.0-16.0) g/dl Hct 33.9 L (37.0-47.0) % MCV 102.1 H (80.0-98.0) fL MCH 32.8 (27.0-33.0) pg MCHC 32.2 (31.0-35.0) g/dl RDW 13.8 (11.0-16.0) % Plt Count 53 L D (160-400) X10*3/uL MPV 12.2 (9.4-12.3) fL Immature Gran % (Auto) 0.4 (0.0-0.4) % Neut % (Auto) 89.9 H (45-73) % Lymph % (Auto) 6.2 L (20-40) % [place] % (Auto) 3.3 (2-11) % Eos % (Auto) 0.0 (0-4) % Baso % (Auto) 0.2 (0-2) % Lymph # (Auto) 0.3 L (1.2-4.9) X10*3/uL [place] # (Auto) 0.2 (0.1-1.2) X10*3/uL Eos # (Auto) 0.0 (0.0-0.4) X10*3/uL Baso # (Auto) 0.0 (0.0-0.2) X10*3/uL Abs Immat Gran (auto) 0.02 (0.00-0.03) X10*3/uL Absolute Neuts (auto) 4.1 (2.0-8.3) x10*3/uL Absolute Nucleated RBC 0.000 (0.0-0.012) X10*3/uL Nucleated RBC % (auto) 0.0 (0.0-0.2) /100WBC Sodium (135-145) mmol/L Potassium (3.3-5.1) mmol/L Chloride (96-108) mmol/L Carbon Dioxide (22-29) mmol/L Anion Gap (12-20) BUN (9-16) mg/dL Creatinine (0.5-1.4) mg/dL Estim Creat Clear Calc Estimated GFR POC Glucose (60-115) mg/dL Random Glucose (60-115) mg/dL Calcium (8.4-10.2) mg/dL Total Bilirubin (0.0-1.0) mg/dL AST (5-31) U/L ALT (0-31) U/L Alkaline Phosphatase (39-117) U/L Troponin I High Sens 37.0 H (<3.5-17.0) ng/L B-Natriuretic Peptide (<100) pg/mL Total Protein (6.5-8.0) g/dL Albumin (3.5-5.0) g/dL COVID-19 ([facility]) Negative (Negative) COVID-19 Clin Com See Note Influenza Type A (PCR) (Negative) Influenza Type B (PCR) (Negative) RSV RNA Qual (PCR) (Negative) SARS-CoV-2 RNA (RT-PCR) (Negative) 05/26/21 05/26/21 05/26/21 Range/Units 18:39 18:39 20:20 WBC (4.8-10.8) X10*3/uL RBC (4.20-5.50) X10*6/uL Hgb (12.0-16.0) g/dl Hct (37.0-47.0) % MCV (80.0-98.0) fL MCH (27.0-33.0) pg MCHC (31.0-35.0) g/dl RDW (11.0-16.0) % Plt Count (160-400) X10*3/uL MPV (9.4-12.3) fL Immature Gran % (Auto) (0.0-0.4) % Neut % (Auto) (45-73) % Lymph % (Auto) (20-40) % [place] % (Auto) (2-11) % Eos % (Auto) (0-4) % Baso % (Auto) (0-2) % Lymph # (Auto) (1.2-4.9) X10*3/uL [place] # (Auto) (0.1-1.2) X10*3/uL Eos # (Auto) (0.0-0.4) X10*3/uL Baso # (Auto) (0.0-0.2) X10*3/uL Abs Immat Gran (auto) (0.00-0.03) X10*3/uL Absolute Neuts (auto) (2.0-8.3) x10*3/uL Absolute Nucleated RBC (0.0-0.012) X10*3/uL Nucleated RBC % (auto) (0.0-0.2) /100WBC Sodium 135 (135-145) mmol/L Potassium 3.2 L (3.3-5.1) mmol/L Chloride 96 (96-108) mmol/L Carbon Dioxide 29 (22-29) mmol/L Anion Gap 13 (12-20) BUN 14 (9-16) mg/dL Creatinine 2.72 H (0.5-1.4) mg/dL Estim Creat Clear Calc 20.9 Estimated GFR 17 POC Glucose (60-115) mg/dL Random Glucose 413 H* (60-115) mg/dL Calcium 7.1 L (8.4-10.2) mg/dL Total Bilirubin 0.9 (0.0-1.0) mg/dL AST 49 H D (5-31) U/L ALT 38 H (0-31) U/L Alkaline Phosphatase 313 H (39-117) U/L Troponin I High Sens (<3.5-17.0) ng/L B-Natriuretic Peptide 2007 H (<100) pg/mL Total Protein 7.2 (6.5-8.0) g/dL Albumin 2.5 L (3.5-5.0) g/dL COVID-19 ([facility]) (Negative) COVID-19 Clin Com Influenza Type A (PCR) NEGATIVE (Negative) Influenza Type B (PCR) NEGATIVE (Negative) RSV RNA Qual (PCR) NEGATIVE (Negative) SARS-CoV-2 RNA (RT-PCR) NEGATIVE (Negative) 05/26/21 Range/Units 20:38 WBC (4.8-10.8) X10*3/uL RBC (4.20-5.50) X10*6/uL Hgb (12.0-16.0) g/dl Hct (37.0-47.0) % MCV (80.0-98.0) fL MCH (27.0-33.0) pg MCHC (31.0-35.0) g/dl RDW (11.0-16.0) % Plt Count (160-400) X10*3/uL MPV (9.4-12.3) fL Immature Gran % (Auto) (0.0-0.4) % Neut % (Auto) (45-73) % Lymph % (Auto) (20-40) % [place] % (Auto) (2-11) % Eos % (Auto) (0-4) % Baso % (Auto) (0-2) % Lymph # (Auto) (1.2-4.9) X10*3/uL [place] # (Auto) (0.1-1.2) X10*3/uL Eos # (Auto) (0.0-0.4) X10*3/uL Baso # (Auto) (0.0-0.2) X10*3/uL Abs Immat Gran (auto) (0.00-0.03) X10*3/uL Absolute Neuts (auto) (2.0-8.3) x10*3/uL Absolute Nucleated RBC (0.0-0.012) X10*3/uL Nucleated RBC % (auto) (0.0-0.2) /100WBC Sodium (135-145) mmol/L Potassium (3.3-5.1) mmol/L Chloride (96-108) mmol/L Carbon Dioxide (22-29) mmol/L Anion Gap (12-20) BUN (9-16) mg/dL Creatinine (0.5-1.4) mg/dL Estim Creat Clear Calc Estimated GFR POC Glucose 354 H* (60-115) mg/dL Random Glucose (60-115) mg/dL Calcium (8.4-10.2) mg/dL Total Bilirubin (0.0-1.0) mg/dL AST (5-31) U/L ALT (0-31) U/L Alkaline Phosphatase (39-117) U/L Troponin I High Sens (<3.5-17.0) ng/L B-Natriuretic Peptide (<100) pg/mL Total Protein (6.5-8.0) g/dL Albumin (3.5-5.0) g/dL COVID-19 ([facility]) (Negative) COVID-19 Clin Com Influenza Type A (PCR) (Negative) Influenza Type B (PCR) (Negative) RSV RNA Qual (PCR) (Negative) SARS-CoV-2 RNA (RT-PCR) (Negative) Discharge Plan Discharge Clinical Impression: ESRD (end stage renal disease), Chronic lung disease Asthma attack Qualifiers: Asthma severity: moderate Asthma persistence: persistent Qualified Code(s): J45.41 - Moderate persistent asthma with (acute) exacerbation Patient Disposition: Home, Self-Care Instructions: Asthma (ED), End Stage Kidney Disease (ED) Additional Instructions: Use inhaler as advised Prescriptions: New albuterol sulfate [ProAir HFA] 90 mcg/actuation HFA aerosol inhaler 2 puff inhalation Q4-6H PRN (Reason: Wheezing) Qty: 8.5 RF: 0 No Action loperamide [Imodium A-D] 1 mg/7.5 mL liquid 1 mg PO DAILY Qty: 120 RF: 0 atorvastatin 40 mg tablet 40 mg PO BEDTIME RF: 0 metoprolol tartrate 25 mg tablet 25 mg PO BID RF: 0 cholecalciferol (vitamin D3) 50 mcg (2,000 unit) tablet 50 mcg PO QAM RF: 0 bumetanide 2 mg Tablet 4 mg PO SUTUTHSA@0800,1700 RF: 0 fluoxetine 20 mg/5 mL (4 mg/mL) solution 5 ml PO DAILY RF: 0 quetiapine 25 mg tablet 25 mg PO BEDTIME PRN (Reason: Sleep) RF: 0 clopidogrel 75 mg tablet 1 tab PO BEDTIME RF: 0 lorazepam 0.5 mg tablet 1 tab PO DAILY PRN (Reason: Anxiety) RF: 0 Anoro Ellipta 62.5-25 mcg/actuation blister with device 1 puff inhalation DAILY RF: 0 isosorbide mononitrate 30 mg tablet extended release 24 hr 30 mg PO DAILY Qty: 30 RF: 0 metronidazole 500 mg Tablet 500 mg PO Q8H Qty: 36 RF: 0 levofloxacin 250 mg Tablet 250 mg PO Q48H Qty: 6 RF: 0 nystatin 100,000 unit/gram powder 1 appl topical BID-TID RF: 0 loperamide [Imodium A-D] 1 mg/7.5 mL liquid 1 mg PO DAILY Qty: 120 RF: 0
--- NOTE | 2021-05-26 17:15 | ECG_ITS ---
Test Reason : SOB Blood Pressure : / mmHG Vent. Rate : 086 BPM Atrial Rate : 086 BPM P-R Int : 134 ms QRS Dur : 086 ms QT Int : 388 ms P-R-T Axes : 054 037 011 degrees QTc Int : 464 ms Artifact in tracing Sinus rhythm with Blocked Premature atrial complexes Nonspecific ST and T wave abnormality Abnormal ECG When compared with ECG of 05-MAY-2021 12:57, Premature ventricular complexes are no longer Present Premature atrial complexes are now Present Referred By: Tan Lemus Electronically Signed By:PARKER FLOWER
[2021-05-26 18:45] LABS: MANUAL DIFF FLAG NO
[2021-05-26 18:47] LABS: Basophils Percent Auto 0.2 % (0-2); Hematocrit 33.9 % (37.0-47.0); Hemoglobin 10.9 g/dl (12.0-16.0); Imm Gran Abs Auto 0.02 X10*3/uL (0.00-0.03); Imm Gran Pct Auto 0.4 % (0.0-0.4); Lymphocytes Absolute Auto 0.3 X10*3/uL (1.2-4.9); Lymphocytes Percent Auto 6.2 % (20-40); Mean Corpuscular HGB Conc 32.2 g/dl (31.0-35.0); Mean Corpuscular Hemoglobin 32.8 pg (27.0-33.0); Mean Corpuscular Volume 102.1 fL (80.0-98.0); Mean Platelet Volume 12.2 fL (9.4-12.3); Monocytes Absolute Auto 0.2 X10*3/uL (0.1-1.2); Monocytes Percent Auto 3.3 % (2-11); Neutrophils Absolute Auto 4.1 x10*3/uL (2.0-8.3); Neutrophils Percent Auto 89.9 % (45-73); Red Blood Count 3.32 X10*6/uL (4.20-5.50); Red Cell Distribution Width 13.8 % (11.0-16.0); White Blood Count 4.5 X10*3/uL (4.8-10.8)
[2021-05-26 18:48] LABS: Platelet Count 53 X10*3/uL (160-400)
[2021-05-26 19:05] LABS: B Type Natriuretic Peptide 2007 pg/mL (<100); COVID-19 Test Negative (Negative)
[2021-05-26 19:13] LABS: Alanine Aminotransferase 38 U/L (0-31); Albumin Level 2.5 g/dL (3.5-5.0); Alkaline Phosphatase 313 U/L (39-117); Anion Gap 13 (12-20); Aspartate Amino Transferase 49 U/L (5-31); Bilirubin Total 0.9 mg/dL (0.0-1.0); Blood Urea Nitrogen 14 mg/dL (9-16); Calcium 7.1 mg/dL (8.4-10.2); Carbon Dioxide 29 mmol/L (22-29); Chloride 96 mmol/L (96-108); Creatinine Clr Calc Pharmacy 20.9; Estimated Glomerular Filt Rate 17; Glucose Random 413 mg/dL (60-115); Potassium 3.2 mmol/L (3.3-5.1); Sodium 135 mmol/L (135-145); Total Protein 7.2 g/dL (6.5-8.0)
[2021-05-26] MEDS: Albuterol/Iprat 2.5/0.5MG 3 ML AMPUL.NEB INHALE (19:43)
[2021-05-26 19:46] VITALS: PULSE 85; RESP 20; O2SAT 94
[2021-05-26] MEDS: Insulin Lispro 100 UNIT/ML 3 ML VIAL 14 UNIT SUBCUT (20:04)
[2021-05-26 20:41] LABS: Glucose, Whole Blood 354 mg/dL (60-115)
[2021-05-26 21:14] LABS: Influenza A PCR NEGATIVE (Negative); Influenza B PCR NEGATIVE (Negative); Resp Syncy Virus RNA Qual PCR NEGATIVE (Negative); SARS COV2 PCR INHOUSE NEGATIVE (Negative)
== END 2021-05-26 22:25 | disposition home or self-care (01) ==
PROVIDERS: Emergency Provider Internal Medicine; PCP Family Medicine
DX: J45.41 Moderate persistent asthma with (acute) exacerbation (principal); I13.2 Hypertensive heart and chronic kidney disease with heart failure and with stage 5 chronic kidney disease, or end stage renal disease; E11.22 Type 2 diabetes mellitus with diabetic chronic kidney disease; N18.6 End stage renal disease; I50.30 Unspecified diastolic (congestive) heart failure; Z99.2 Dependence on renal dialysis; Z20.822 Contact with and (suspected) exposure to COVID-19; R06.02 Shortness of breath; F17.200 Nicotine dependence, unspecified, uncomplicated; Z86.73 Personal history of transient ischemic attack (TIA), and cerebral infarction without residual deficits; Z79.02 Long term (current) use of antithrombotics/antiplatelets; Z79.899 Other long term (current) drug therapy
CPT/HCPCS: 0241U; 36415; 71045; 80053; 82947; 83880; 84484; 85025; 87635; 93005; 94640; 99283; 99284

== ENCOUNTER 2021-06-12 13:04 | Inpatient (IN) | payer MEDICARE, MEDICAID, SELFPAY ==
--- NOTE | ~2021-06-12 | XR_ITS ---
EXAMINATION: XR CHEST CLINICAL INFORMATION: Shortness of breath. COMPARISON: 05/26/2021 portable chest. TECHNIQUE: 2 views of the chest were obtained. FINDINGS: Support devices: Left-sided large-bore central venous catheter with tip terminating at the level of the right atrium. Mild prominence of the pulmonary vasculature and interstitial markings demonstrate a similar appearance to the previous study. The heart and mediastinal structures are unremarkable. XR/XR chest 2V IMPRESSION: No significant change in cardiopulmonary findings compared to several previous studies. These could represent chronic interstitial changes however, mild edema cannot be excluded.
[2021-06-12 13:16] VITALS: BP 101/51; PULSE 87; RESP 31; TEMP 36.6; O2SAT 98; BMI 34.5
--- NOTE | 2021-06-12 14:01 | ED_ITS ---
HPI - SOB/Dyspnea General Chief Complaint: Dyspnea Stated Complaint: shortness of breath Time Seen by Provider: 06/12/21 13:26 Source: patient and EMS Mode of arrival: EMS Limitations: language barrier History of Present Illness HPI Narrative: 70-year-old female with a past medical history of CHF, end-stage renal disease on dialysis, diabetes, COPD, bacteremia, anemia, pneumonia, asthma, HTN and UTI, presents for shortness of breath while at dialysis at 11:00 a.m. today. Patient has dialysis at [facility], Dr. Huerta is her distribution estimator. she has dialysis on Mondays, , and Monday. states she usually has dialysis from 11:00 a.m. to 3:00 p.m., for 4 hours. Today she only got 15 minutes or so of dialysis before she became too short of breath to continue. Patient says she has had a cough for a week, with changing sputum color. Says that she think she has pneumonia. She has not had fevers, no urinary tract symptoms, no dysuria or hematuria, no urgency. No abdominal pain. Patient has been eating and drinking well. She is vaccinated for COVID but not boosted. MD elicited complaint: shortness of breath and cough Pertinent past history: COPD, asthma, congestive heart failure, diabetes and pneumonia Related Data Home Medications Medication Instructions Recorded Confirmed atorvastatin 40 mg tablet 40 mg PO BEDTIME 04/24/20 06/12/21 cholecalciferol (vitamin D3) 50 50 mcg PO QAM 04/24/20 06/12/21 mcg (2,000 unit) tablet metoprolol tartrate 25 mg 25 mg PO BID 04/24/20 06/12/21 tablet clopidogrel 75 mg tablet 1 tab PO BEDTIME 07/16/20 06/12/21 fluoxetine 20 mg/5 mL (4 mg/mL) 5 ml PO DAILY 07/16/20 06/12/21 oral solution lorazepam 0.5 mg tablet 0.5 mg PO DAILY PRN 07/16/20 06/12/21 quetiapine 25 mg tablet 25 mg PO BEDTIME PRN 07/16/20 06/12/21 umeclidinium 62.5 1 puff INHALATION DAILY 07/16/20 06/12/21 mcg-vilanterol 25 mcg/actuation powdr for inhalation (Anoro Ellipta) nystatin 100,000 unit/gram 1 appl TOPICAL BID 01/05/21 06/12/21 topical powder betamethasone dipropionate 0.05 1 appl TOPICAL BID 06/12/21 06/12/21 % topical ointment midodrine 10 mg tablet 10 mg PO DIRECTED PRN 06/12/21 06/12/21 Previous Rx's Medication Instructions Recorded isosorbide mononitrate 30 mg 30 mg PO DAILY #30 tab 07/17/20 tablet,extended release 24 hr loperamide 1 mg/7.5 mL oral liquid 1 mg (7.5 mL) PO DAILY #120 ml 03/02/21 (Imodium A-D) albuterol sulfate 90 mcg/actuation 2 puff INHALATION Q4-6H PRN #8.5 05/26/21 g aerosol inhaler (ProAir HFA) Allergies Allergy/AdvReac Type Severity Reaction Status Date / Time Penicillins Allergy Severe Anaphylaxis, Verified 01/05/21 08:49 hives acetaminophen [From Allergy Unknown Unknown Verified 01/05/21 08:49 TYLENOL] aspirin [ASPIRIN] Allergy Unknown rash, Verified 01/05/21 08:49 stomach upset diazepam [From Allergy Unknown RESP Verified 01/05/21 08:49 VALIUM] FAILURE penicillin V Allergy Unknown edema Verified 01/05/21 08:49 metformin [Metformin] AdvReac Mild DIARRHEA Verified 01/05/21 08:49 Review of Systems Verdana 4l Constitutional: Verdana 4d Constitutional: Verdana 4d Verdana 4d Denies body ache(s), Denies chills, Reports fatigue, Denies fever(s), Denies headache(s), Denies malaise and Denies weakness Verdana 4l Eyes: Verdana 4d Verdana 4d Eyes: Verdana 4d Denies diplopia Verdana 4l ENT: Verdana 4d Denies dizziness, Denies otalgia, Denies headache(s), Reports mouth pain, Denies post nasal drip, Denies sinus pain and Denies sore throat Verdana 4l Cardiovascular: Verdana 4d Cardiovascular: Verdana 4d Verdana 4d Denies chest pain, Denies syncope, Denies leg edema, Denies lightheadedness, Denies Loss of Consciousness, Denies palpitations and Reports dyspnea Verdana 4l Respiratory: Verdana 4d Verdana 4d Respiratory: Verdana 4d Reports change in phlegm color, Reports chest congestion, Reports cough and Reports dyspnea Verdana 4l Gastrointestinal: Verdana 4d Gastrointestinal: Verdana 4d Verdana 4d Denies abdominal pain, Denies hematochezia, Denies constipation, Denies diarrhea and Denies vomiting Verdana 4l Genitourinary: Verdana 4d Verdana 4d Genitourinary: Verdana 4d Denies dysuria, Denies urinary incontinence, Denies urinary hesitancy and Denies urinary urgency Verdana 4l Musculoskeletal: Verdana 4d Musculoskeletal: Verdana 4d Verdana 4d Reports no additional musculoskeletal complaints Verdana 4l Neurologic: Verdana 4d Denies confusion, Denies dizziness, Denies syncope, Denies headache(s) and Denies weakness Verdana 4l Psychiatric: Verdana 4d Verdana 4d Psychiatric: Verdana 4d Denies anxiety, Denies confusion and Denies depression Verdana 4l Endocrine: Verdana 4d Verdana 4d Endocrine: Verdana 4d Reports fatigue and Denies palpitations PMFSH Past Medical History Medical History Anemia Anemia Bacteremia due to Staphylococcus Bipolar disorder Chronic diarrhea Constipation COPD (chronic obstructive pulmonary disease) Diabetes Diastolic CHF Diastolic dysfunction Dislodged gastrostomy tube Diverticulitis Dyspnea ESRD (end stage renal disease) ESRD (end stage renal disease) Hyperlipidemia Hypertension Pneumonia Renal failure Thrombocytopenia Social History Social History Household Members: Children Household Members Other:: daughter Housing: Apartment Do you presently have visiting nurse or other home services: No Unable to assess alcohol history related to: Unknown Alcohol intake: never Years Smoked: many years Advance Directives: Yes Advance Directives on File: Yes Advance Directives Date on File: 06/12/20 service: No Current occupational status: retired and disabled Physical Exam Verdana 4l Vital Signs: Verdana 4d Verdana 4d Vital Signs: Verdana 4d Verdana 4Bd Last Vital Signs Verdana 4d Hospice Rn New 4d Hospice Rn New 4d Temp 97.8 F 06/12/21 16:00 Hospice Rn New 4d Pulse 81 06/12/21 16:24 Hospice Rn New 4d Resp 20 06/12/21 16:24 BP 137/58 L 06/12/21 16:00 Pulse Ox 98 06/12/21 16:00 Oxygen Flow Rate 2 06/12/21 13:16 BMI result Body Mass Index 34.5 Const: General: alert, awake and ill appearing chronically; No confusion Nutritional Appearance: obese morbidly obese Orientation/consciousness: No confusion Limitations: no limitations HENMT: Head: Yes normal to inspection, Yes normocephalic and Yes atraumatic Ears: hearing grossly normal bilaterally General nose exam: Normal external nose present Face and sinus: Yes normal facial exam Mouth: mucous membranes dry Throat: Yes posterior oropharynx normal Eyes: Conjunctivae: conjunctivae normal Pupils: Equal, round and reactive pupils present EOM: EOMs intact bilaterally Neck: Neck: Yes full ROM, Yes no lymphadenopathy and Yes supple Resp: Effort & Inspection: normal respiratory effort, able to speak in complete sentences, no pursed lip breathing, tachypneic, no tripod positioning and no use of accessory muscles Auscultation: clear to auscultation bilaterally, no crackles, no rales, rhonchi throughout and wheezes throughout Cardio: Rate: regular rate Rhythm: regular rhythm Heart sounds: S1 normal heart sound present and S2 normal heart sound present GI: Inspection: Yes normal to inspection Palpation (GI): Soft to palpation, nontender, no guarding and not rigid Percussion: Yes normal to percussion Auscultation: normal bowel sounds Skin: General skin exam: no rashes or lesions noted Neuro: General: No confusion Cranial nerves: Yes Equal, round and reactive pupils present Extrem: General: Yes normal to inspection and Yes full ROM Psych: Appearance: grossly normal Affect: normal affect Attitude: cooperative Thought process: Normal thought process present Course Course Course Narrative: 70-year-old female who became short of breath while she was getting her dialysis treatment at 11:00 a.m. this morning, she was unable to finish dialysis.States she only got about 15 minutes of her four hour dialysis treatment. Patient has had a cough for a week and change in sputum color on exam, patient is chronically ill-appearing, is obese, Romansh-speaking, is tachypneic at 30 respirations per minute, but has no retractions, is able to speak in full sentences, no tripoding or pursed lip breathing. Afebrile. Lung exam reveals crackles and rhonchi throughout Discussed with Dr. Carpio if sepsis criteria should be followed, and if patient needs fluids as her systolic was 101 upon arrival. Patient's systolic is now in the 120s, map of 68, Dr Carpio thinks she may be volume overloaded as she did not complete her dialysis, it aand showed me her distended JVD Reevaluation(s) Reevaluation #1: XR/XR chest 2V IMPRESSION: No significant change in cardiopulmonary findings compared to several previous studies. These could represent chronic interstitial changes however, mild edema cannot be excluded. after breathing treatment patient's has normal respiratory rate at 16. Patient satting 99% on her usual 2 L of oxygen. Patient is at her baseline of anemia with H&H of 10.8 her UA 3.9, also baseline of thrombocytopenia platelets 862. Lactic 1.1, COVID negative, troponin 16.5, BNP elevated at 1636 Called distribution estimator corrosion control fitter. Would like to admit patient so she can finish her dialysis Reevaluation #2: Spoke to Dr Hurst, who would like to admit pt so she can finish her dialysis Dr Hurst will call her dialysis nurse, and put in dialysis orders. Spoke to Dr Ricks, who will admit pt Chemistries pending at time of admission. MDM - SOB/Dyspnea Medical Records Attestation: I reviewed the patient's medical records. Lab Data Attestation: I reviewed the patient's lab results. Result diagrams: 06/12/21 15:37 06/12/21 15:37 Labs: Lab Results 06/12/21 06/12/21 06/12/21 Range/Units 15:37 15:37 15:37 WBC 6.5 (4.8-10.8) X10*3/uL RBC 3.31 L (4.20-5.50) X10*6/uL Hgb 10.8 L (12.0-16.0) g/dl Hct 33.9 L (37.0-47.0) % MCV 102.4 H (80.0-98.0) fL MCH 32.6 (27.0-33.0) pg MCHC 31.9 (31.0-35.0) g/dl RDW 14.0 (11.0-16.0) % Plt Count 62 L (160-400) X10*3/uL MPV 14.1 H (9.4-12.3) fL Immature Gran % (Auto) 0.3 (0.0-0.4) % Neut % (Auto) 77.3 H (45-73) % Lymph % (Auto) 11.2 L (20-40) % Lane % (Auto) 8.0 (2-11) % Eos % (Auto) 2.6 (0-4) % Baso % (Auto) 0.6 (0-2) % Lymph # (Auto) 0.7 L (1.2-4.9) X10*3/uL Lane # (Auto) 0.5 (0.1-1.2) X10*3/uL Eos # (Auto) 0.2 (0.0-0.4) X10*3/uL Baso # (Auto) 0.0 (0.0-0.2) X10*3/uL Abs Immat Gran (auto) 0.02 (0.00-0.03) X10*3/uL Absolute Neuts (auto) 5.0 (2.0-8.3) x10*3/uL Absolute Nucleated RBC 0.000 (0.0-0.012) X10*3/uL Nucleated RBC % (auto) 0.0 (0.0-0.2) /100WBC Lactic Acid 1.1 (0.5-2.0) mmol/L Troponin I High Sens 16.5 D (<3.5-17.0) ng/L B-Natriuretic Peptide 1636 H (<100) pg/mL COVID-19 ([facility]) (Negative) COVID-19 Clin Com 06/12/21 Range/Units 15:37 WBC (4.8-10.8) X10*3/uL RBC (4.20-5.50) X10*6/uL Hgb (12.0-16.0) g/dl Hct (37.0-47.0) % MCV (80.0-98.0) fL MCH (27.0-33.0) pg MCHC (31.0-35.0) g/dl RDW (11.0-16.0) % Plt Count (160-400) X10*3/uL MPV (9.4-12.3) fL Immature Gran % (Auto) (0.0-0.4) % Neut % (Auto) (45-73) % Lymph % (Auto) (20-40) % Lane % (Auto) (2-11) % Eos % (Auto) (0-4) % Baso % (Auto) (0-2) % Lymph # (Auto) (1.2-4.9) X10*3/uL Lane # (Auto) (0.1-1.2) X10*3/uL Eos # (Auto) (0.0-0.4) X10*3/uL Baso # (Auto) (0.0-0.2) X10*3/uL Abs Immat Gran (auto) (0.00-0.03) X10*3/uL Absolute Neuts (auto) (2.0-8.3) x10*3/uL Absolute Nucleated RBC (0.0-0.012) X10*3/uL Nucleated RBC % (auto) (0.0-0.2) /100WBC Lactic Acid (0.5-2.0) mmol/L Troponin I High Sens (<3.5-17.0) ng/L B-Natriuretic Peptide (<100) pg/mL COVID-19 ([facility]) Negative (Negative) COVID-19 Clin Com See Note ECG Data Interpretation: Normal sinus at a rate of 90, CT interval 134, QRS 84, QTC 450, normal axis, no ST depressions or elevations, no T-wave abnormalities Discharge Plan Discharge Clinical Impression: Dyspnea Patient Disposition: Admitted As Inpatient
--- NOTE | 2021-06-12 14:04 | ECG_ITS ---
Test Reason : DYSPNEA Blood Pressure : / mmHG Vent. Rate : 090 BPM Atrial Rate : 090 BPM P-R Int : 134 ms QRS Dur : 084 ms QT Int : 368 ms P-R-T Axes : 049 054 041 degrees QTc Int : 450 ms Normal sinus rhythm Normal ECG When compared with ECG of 26-MAY-2021 17:43, Premature atrial complexes are no longer Present Referred By: Randi Quinn Electronically Signed By:ARTURO ALDANA MD
[2021-06-12 15:08] VITALS: BP 109/54; PULSE 89; RESP 16; O2SAT 98
[2021-06-12] MEDS: methylPREDNISolone Sod Succ 125 MG/2 ML VIAL IVPUSH (15:41)
[2021-06-12 15:48] LABS: MANUAL DIFF FLAG NO
[2021-06-12 15:51] LABS: Basophils Percent Auto 0.6 % (0-2); Eosinophils Absolute Auto 0.2 X10*3/uL (0.0-0.4); Eosinophils Percent Auto 2.6 % (0-4); Hematocrit 33.9 % (37.0-47.0); Hemoglobin 10.8 g/dl (12.0-16.0); Imm Gran Abs Auto 0.02 X10*3/uL (0.00-0.03); Imm Gran Pct Auto 0.3 % (0.0-0.4); Lymphocytes Absolute Auto 0.7 X10*3/uL (1.2-4.9); Lymphocytes Percent Auto 11.2 % (20-40); Mean Corpuscular HGB Conc 31.9 g/dl (31.0-35.0); Mean Corpuscular Hemoglobin 32.6 pg (27.0-33.0); Mean Corpuscular Volume 102.4 fL (80.0-98.0); Mean Platelet Volume 14.1 fL (9.4-12.3); Monocytes Absolute Auto 0.5 X10*3/uL (0.1-1.2); Neutrophils Percent Auto 77.3 % (45-73); Platelet Count 62 X10*3/uL (160-400); Red Blood Count 3.31 X10*6/uL (4.20-5.50); White Blood Count 6.5 X10*3/uL (4.8-10.8)
[2021-06-12 15:56] LABS: Lactic Acid 1.1 mmol/L (0.5-2.0)
--- NOTE | 2021-06-12 15:56 | PC.NURSE ---
RN assumed care at 1500, pt alert and oriented x4, calm and cooperative. Pt denies pain. States SOB at times. Denies chest pain. IV intact. Vitals stable, remains on 2 liters O2 at baseline. Pt resting in stretcher without issues, will continue to monitor.
[2021-06-12 16:00] VITALS: BP 137/58; PULSE 82; RESP 16; TEMP 36.6; O2SAT 98
[2021-06-12 16:01] LABS: COVID-19 Test Negative (Negative)
[2021-06-12 16:05] LABS: B Type Natriuretic Peptide 1636 pg/mL (<100); Troponin-I High Sensitivity 16.5 ng/L (<3.5-17.0)
[2021-06-12 16:24] VITALS: PULSE 81; RESP 20
[2021-06-12] MEDS: Albuterol/Iprat 2.5/0.5MG 3 ML AMPUL.NEB INHALE (16:24)
--- NOTE | 2021-06-12 16:35 | PC.NURSE ---
PATIENT IS A HARD STICK UNABLE TO GET LABS ,RN AWARE ,PHLEBOTONY CALLED ,PATIENT HAD LARGE BOWEL MOVEMENT .
--- NOTE | 2021-06-12 16:55 | P.HPHOSP_ITS ---
History of Present Illness Date of Service: 06/12/21 Chief Complaint: Dyspnea A 70 years old lady with PMH of ESRD on HD, GERD, pulmonary hypertension, VÍCTOR, CAD among others who presented to the hospital with complaint of difficulty breathing. The patient developed difficulty breathing while in the dialysis unit 15 minutes enter the assess session today. She denies any chest pain, palpitation, loss of conscious, weakness in any side. In the emergency she was found to be mildly fluid overloaded with no evidence of acidemia, respiratory distress. Admitted for further evaluation and for inpatient dialysis. Review of Systems Verdana 4l Review of Systems: Verdana 4d No fever, chills or Verdana 4d weakness No chest pain, palpitation Dyspnea, shortness of breath, no coughing No abdominal pain, nausea or vomiting No urinary symptoms No any rash or wounds Verdana 4d PMFSH Medical History Anemia Anemia Bacteremia due to Staphylococcus Bipolar disorder Chronic diarrhea Constipation COPD (chronic obstructive pulmonary disease) Diabetes Diastolic CHF Diastolic dysfunction Dislodged gastrostomy tube Diverticulitis Dyspnea ESRD (end stage renal disease) ESRD (end stage renal disease) Hyperlipidemia Hypertension Pneumonia Renal failure Thrombocytopenia Social History Household Members: Children Household Members Other:: daughter Housing: Apartment Do you presently have visiting nurse or other home services: No Unable to assess alcohol history related to: Unknown Alcohol intake: never Years Smoked: many years Advance Directives: Yes Advance Directives on File: Yes Advance Directives Date on File: 06/12/20 service: No Current occupational status: retired and disabled Meds Allergies Allergy/AdvReac Type Severity Reaction Status Date / Time Penicillins Allergy Severe Anaphylaxis, Verified 01/05/21 08:49 hives acetaminophen [From Allergy Unknown Unknown Verified 01/05/21 08:49 TYLENOL] aspirin [ASPIRIN] Allergy Unknown rash, Verified 01/05/21 08:49 stomach upset diazepam [From Allergy Unknown RESP Verified 01/05/21 08:49 VALIUM] FAILURE penicillin V Allergy Unknown edema Verified 01/05/21 08:49 metformin [Metformin] AdvReac Mild DIARRHEA Verified 01/05/21 08:49 Active Medications: Current Medications Pharmacy Consult (Consult Rx Perform Med Rec) 1 each MISCELLANE ONCE PRN PRN Reason: Consult order Home Medications Medication Instructions Recorded Confirmed Last Taken Type atorvastatin 40 40 mg PO BEDTIME 04/24/20 06/12/21 Unknown History mg tablet cholecalciferol 50 mcg PO QAM 04/24/20 06/12/21 Unknown History (vitamin D3) 50 mcg (2,000 unit) tablet metoprolol 25 mg PO BID 04/24/20 06/12/21 Unknown History tartrate 25 mg tablet clopidogrel 75 mg 1 tab PO BEDTIME 07/16/20 06/12/21 Unknown History tablet fluoxetine 20 5 ml PO DAILY 07/16/20 06/12/21 Unknown History mg/5 mL (4 mg/mL) oral solution lorazepam 0.5 mg 0.5 mg PO DAILY 07/16/20 06/12/21 Unknown History tablet PRN quetiapine 25 mg 25 mg PO BEDTIME 07/16/20 06/12/21 Unknown History tablet PRN umeclidinium 62.5 1 puff 07/16/20 06/12/21 Unknown History mcg-vilanterol INHALATION DAILY 25 mcg/actuation powdr for inhalation (Anoro Ellipta) nystatin 100,000 1 appl TOPICAL 01/05/21 06/12/21 Unknown History unit/gram topical BID powder betamethasone 1 appl TOPICAL 06/12/21 06/12/21 Unknown History dipropionate 0.05 BID % topical ointment midodrine 10 mg 10 mg PO 06/12/21 06/12/21 Unknown History tablet DIRECTED PRN Physical Exam Verdana 4l Vital Signs and Narrative: Verdana 4d Verdana 4d Vital Signs: Verdana 4d Verdana 4Bd Last Vital Signs Verdana 4d Underground Distribution Engineer New 4d Underground Distribution Engineer New 4d Temp 97.8 F 06/12/21 16:00 Underground Distribution Engineer New 4d Pulse 81 06/12/21 16:24 Underground Distribution Engineer New 4d Resp 20 06/12/21 16:24 BP 137/58 L 06/12/21 16:00 Pulse Ox 98 06/12/21 16:00 Oxygen Flow Rate 2 06/12/21 13:16 BMI result Body Mass Index 34.5 Const: Other: Constitutional : Alert, oriented, not in distress Neck : Normal inspection, Supple Cardiovascular : RRR, S1 S2, trace bilateral lower extremity edema Respiratory : Fair bilateral air entry but decreased in the bases with basal fine crackles bilaterally. Gastrointestinal: soft, lax, Normal bowel sounds, Non tender Skin : Warm, Dry Neurological : Alert & oriented x3, No focal deficit Results Labs CBC and Chem 7: 06/12/21 15:37 06/12/21 15:37 Labs: Laboratory Results - last 24 hr 06/12/21 06/12/21 06/12/21 15:37 15:37 15:37 MCV 102.4 H MCH 32.6 MCHC 31.9 RDW 14.0 Plt Count 62 L MPV 14.1 H Immature Gran % (Auto) 0.3 Neut % (Auto) 77.3 H Lymph % (Auto) 11.2 L [place] % (Auto) 8.0 Eos % (Auto) 2.6 Baso % (Auto) 0.6 Lymph # (Auto) 0.7 L [place] # (Auto) 0.5 Eos # (Auto) 0.2 Baso # (Auto) 0.0 Abs Immat Gran (auto) 0.02 Absolute Neuts (auto) 5.0 Absolute Nucleated RBC 0.000 Nucleated RBC % (auto) 0.0 Lactic Acid 1.1 Troponin I High Sens 16.5 D B-Natriuretic Peptide 1636 H COVID-19 ([facility]) COVID-19 Clin Com 06/12/21 15:37 MCV MCH MCHC RDW Plt Count MPV Immature Gran % (Auto) Neut % (Auto) Lymph % (Auto) [place] % (Auto) Eos % (Auto) Baso % (Auto) Lymph # (Auto) [place] # (Auto) Eos # (Auto) Baso # (Auto) Abs Immat Gran (auto) Absolute Neuts (auto) Absolute Nucleated RBC Nucleated RBC % (auto) Lactic Acid Troponin I High Sens B-Natriuretic Peptide COVID-19 ([facility]) Negative COVID-19 Clin Com See Note Imaging Radiologist's Impressions: Impressions Chest X-Ray 06/12/21 15:02 IMPRESSION: No significant change in cardiopulmonary findings compared to several previous studies. These could represent chronic interstitial changes however, mild edema cannot be excluded. Assessment and Plan (1) Acute hemodialysis patient: Status: Acute (2) Dyspnea: Status: Acute (3) Fluid overload: Status: Acute Plan A 70 years old lady with PMH of ESRD on HD, GERD, pulmonary hypertension, VÍCTOR, CAD among others who presented to the hospital with complaint of difficulty breathing. Dyspnea secondary to Fluid overload CXR showing bilateral chronic changes with possible edema Patient has other etiologies for dyspnea including VÍCTOR, pulmonary hypertension Saturation is 90s on 2 L of oxygen, home dose Nephrology contacted for inpatient dialysis To monitor fluid status Hypertension Continue metoprolol and Imdur ? Anemia of chronic dz H/H stable Chronic respiratory failure/COPD Continue 2L home O2 CAD Continue Lopressor, plavix Continue statin Mood Resume fluoxetine, seroquel DVT PPX Heparin Quality Stroke Does the patient have a stroke diagnosis?: No VTE Prior VTE?: No VTE Risk Level:: Medical - moderate - high VTE Device Contraindication: Treatment Not Indicated VTE Drug Contraindication: N/A - Med Ordered
[2021-06-12 17:53] LABS: Alanine Aminotransferase 23 U/L (0-31); Albumin Level 2.6 g/dL (3.5-5.0); Alkaline Phosphatase 223 U/L (39-117); Anion Gap 13 (12-20); Aspartate Amino Transferase 32 U/L (5-31); Blood Urea Nitrogen 20 mg/dL (9-16); Calcium 7.6 mg/dL (8.4-10.2); Carbon Dioxide 26 mmol/L (22-29); Chloride 103 mmol/L (96-108); Creatinine Clr Calc Pharmacy 15.5; Estimated Glomerular Filt Rate 13; Glucose Random 164 mg/dL (60-115); Sodium 138 mmol/L (135-145); Total Protein 7.1 g/dL (6.5-8.0)
[2021-06-12 20:04] VITALS: BP 155/59; PULSE 87; RESP 22; O2SAT 99
[2021-06-12] MEDS: Atorvastatin Calcium 40 MG TABLET PO (20:05)
[2021-06-12] MEDS: Clopidogrel Bisulfate 75 MG TABLET PO (20:05)
[2021-06-12] MEDS: Heparin Sodium,Porcine 5,000 UNIT/ML VIAL 5000 UNIT SUBCUT (20:05)
[2021-06-12] MEDS: Metoprolol Tartrate 25 MG TABLET PO (20:06)
[2021-06-12] MEDS: QUEtiapine Fumarate 25 MG TABLET PO (20:06)
--- NOTE | 2021-06-12 21:15 | PHA.MEDREC ---
Pharmacy Consult ? Medication Reconciliation Pharmacy has completed the medication reconciliation. medical records, notes, nephrology records
[2021-06-12 22:14] VITALS: BP 135/63; PULSE 87; RESP 20; O2SAT 96
[2021-06-12 23:47] LABS: Appearance Urine TURBID; Glucose Urine UA 250 MG/DL (NEG); Leukocyte Esterase Urine 2+ (NEG); Nitrite Urine POS (NEG); PH 6.5 (5.0-8.0); UACC Culture Trigger YES; Urine Blood 3+ (NEG); Urine Ketones 5 MG/DL (NEG); Urine Protein 3+ MG/DL (NEG-TRACE)
[2021-06-12 23:48] LABS: Color Urine AMBER
[2021-06-13 02:40] LABS: Bacteria Urine QNS /LPF; Squamous Epithelial Cell Urine QNS /LPF; WBC Urine QNS /HPF (0-4)
[2021-06-13 02:41] LABS: RBC Urine QNS /HPF (0)
[2021-06-13 03:45] VITALS: BP 117/49; PULSE 75; RESP 23; O2SAT 94
[2021-06-13 06:53] VITALS: BP 133/62; PULSE 68; RESP 21
[2021-06-13] MEDS: Heparin Sodium,Porcine 5,000 UNIT/ML VIAL 5000 UNIT SUBCUT (06:56)
[2021-06-13 06:59] LABS: Hematocrit 40.7 % (37.0-47.0); Hemoglobin 12.9 g/dl (12.0-16.0); Mean Corpuscular HGB Conc 31.7 g/dl (31.0-35.0); Mean Corpuscular Hemoglobin 32.1 pg (27.0-33.0); Mean Corpuscular Volume 101.2 fL (80.0-98.0); Mean Platelet Volume 14.1 fL (9.4-12.3); Red Blood Count 4.02 X10*6/uL (4.20-5.50); Red Cell Distribution Width 13.7 % (11.0-16.0); White Blood Count 2.6 X10*3/uL (4.8-10.8)
[2021-06-13 07:00] LABS: Platelet Count 54 X10*3/uL (160-400)
--- NOTE | 2021-06-13 07:01 | PC.NURSE ---
REPORT GIVEN TO NEHEMIAH DAVENPORT
[2021-06-13 07:26] LABS: Anion Gap 16 (12-20); Blood Urea Nitrogen 36 mg/dL (9-16); Calcium 7.6 mg/dL (8.4-10.2); Carbon Dioxide 23 mmol/L (22-29); Chloride 102 mmol/L (96-108); Creatinine Clr Calc Pharmacy 12.6; Estimated Glomerular Filt Rate 11; Glucose Random 298 mg/dL (60-115); Potassium 4.2 mmol/L (3.3-5.1); Sodium 137 mmol/L (135-145)
--- NOTE | 2021-06-13 08:00 | P.CONNP_ITS ---
History of Present Illness Reason for Consult Consult date: 06/13/21 Chief Complaint Chief complaint: Fluid overload, dyspnea Review of Systems Review of Systems No fever, chills or weakness No chest pain, palpitation Dyspnea, shortness of breath, no coughing No abdominal pain, nausea or vomiting No urinary symptoms No any rash or wounds Constitutional: Denies body ache(s), Denies chills, Reports fatigue, Denies fever(s), Denies headache(s), Denies malaise and Denies weakness Eyes: Denies diplopia Denies dizziness, Denies otalgia, Denies headache(s), Reports mouth pain, Denies post nasal drip, Denies sinus pain and Denies sore throat Cardiovascular: Denies chest pain, Denies syncope, Denies leg edema, Denies lightheadedness, Denies Loss of Consciousness, Denies palpitations and Reports dyspnea Respiratory: Reports change in phlegm color, Reports chest congestion, Reports cough and Reports dyspnea Gastrointestinal: Denies abdominal pain, Denies hematochezia, Denies constipation, Denies diarrhea and Denies vomiting Musculoskeletal: Reports no additional musculoskeletal complaints Denies confusion, Denies dizziness, Denies syncope, Denies headache(s) and Denies weakness Psychiatric: Denies anxiety, Denies confusion and Denies depression Endocrine: Reports fatigue and Denies palpitations PMFSH Past Medical History Medical History Anemia Anemia Bacteremia due to Staphylococcus Bipolar disorder Chronic diarrhea Constipation COPD (chronic obstructive pulmonary disease) Diabetes Diastolic CHF Diastolic dysfunction Dislodged gastrostomy tube Diverticulitis Dyspnea ESRD (end stage renal disease) ESRD (end stage renal disease) Hyperlipidemia Hypertension Pneumonia Renal failure Thrombocytopenia Social History Social History Household Members: Children Household Members Other:: daughter Housing: Apartment Do you presently have visiting nurse or other home services: No Unable to assess alcohol history related to: Unknown Alcohol intake: never Years Smoked: many years Advance Directives: Yes Advance Directives on File: Yes Advance Directives Date on File: 06/12/20 service: No Current occupational status: retired and disabled Meds Allergies Allergy/AdvReac Type Severity Reaction Status Date / Time Penicillins Allergy Severe Anaphylaxis, Verified 01/05/21 08:49 hives acetaminophen [From Allergy Unknown Unknown Verified 01/05/21 08:49 TYLENOL] aspirin [ASPIRIN] Allergy Unknown rash, Verified 01/05/21 08:49 stomach upset diazepam [From Allergy Unknown RESP Verified 01/05/21 08:49 VALIUM] FAILURE penicillin V Allergy Unknown edema Verified 01/05/21 08:49 metformin [Metformin] AdvReac Mild DIARRHEA Verified 01/05/21 08:49 Active Medications: Current Medications Albuterol Sulfate (Albuterol Sulfate 90 Mcg 8 Gm Inhaler) 2 puff INHALE Q4H PRN PRN Reason: Wheezing Atorvastatin Calcium (Atorvastatin Calcium 40 Mg Tablet) 40 mg PO BEDTIME [facility] Last Admin: 06/12/21 20:05 Dose: 40 mg Documented by: Bumetanide (Bumetanide 1 Mg Tablet) 2 mg PO SuMoWeFr@0800,1700 [facility]; Protocol Clopidogrel Bisulfate (Clopidogrel Bisulfate 75 Mg Tablet) 75 mg PO BEDTIME [facility] Last Admin: 06/12/21 20:05 Dose: 75 mg Documented by: Fluoxetine HCl (Fluoxetine Hcl Oral Solution 20 Mg/5 Ml Solution) 20 mg PO HEATHER Y [facility] Heparin Sodium (Porcine) (Heparin Sodium,Porcine 5,000 Unit/Ml Vial) 5,000 unit SUBCUT Q12H [facility] Last Admin: 06/13/21 06:56 Dose: 5,000 unit Documented by: Isosorbide Mononitrate (Isosorbide Mononitrate 30 Mg Tab.Er.24h) 30 mg PO DAILY [facility]; Protocol Loratadine (Loratadine 10 Mg Tablet) 10 mg PO DAILY [facility] Lorazepam (Lorazepam 0.5 Mg Tablet) 0.5 mg PO DAILY PRN PRN Reason: Anxiety Metoprolol Tartrate (Metoprolol Tartrate 25 Mg Tablet) 25 mg PO BID [facility]; Protocol Last Admin: 06/12/21 20:06 Dose: 25 mg Documented by: Midodrine (Midodrine Hcl 10 Mg Tablet) 10 mg PO BID PRN PRN Reason: pre-dialysis and half way thru Ondansetron HCl (Ondansetron Hcl 4 Mg/2 Ml Vial) 4 mg IVPUSH Q8H PRN PRN Reason: Nausea and Vomiting Pharmacy Consult (Consult Rx Perform Med Rec) 1 each MISCELLANE ONCE PRN PRN Reason: Consult order Quetiapine Fumarate (Quetiapine Fumarate 25 Mg Tablet) 25 mg PO BEDTIME PRN PRN Reason: Sleep Quetiapine Fumarate (Quetiapine Fumarate 25 Mg Tablet) 25 mg PO BEDTIME [facility] Last Admin: 06/12/21 20:06 Dose: 25 mg Documented by: Sodium Chloride (0.9 % Sodium Chloride Flush 3 Ml Syringe) 3 ml IVFLUSH QSHIFT [facility] Last Admin: 06/12/21 22:38 Dose: Not Given Documented by: Vitamin D (Cholecalciferol (Vitamin D3) 25 Mcg Tablet) 50 mcg PO DAILY [facility] Home Medications Medication Instructions Recorded Confirmed Last Taken Type atorvastatin 40 40 mg PO BEDTIME 04/24/20 06/12/21 Unknown History mg tablet cholecalciferol 50 mcg PO QAM 04/24/20 06/12/21 Unknown History (vitamin D3) 50 mcg (2,000 unit) tablet metoprolol 25 mg PO BID 04/24/20 06/12/21 Unknown History tartrate 25 mg tablet clopidogrel 75 mg 1 tab PO BEDTIME 07/16/20 06/12/21 Unknown History tablet fluoxetine 20 5 ml PO DAILY 07/16/20 06/12/21 Unknown History mg/5 mL (4 mg/mL) oral solution lorazepam 0.5 mg 0.5 mg PO DAILY 07/16/20 06/12/21 Unknown History tablet PRN quetiapine 25 mg 25 mg PO BEDTIME 07/16/20 06/12/21 Unknown History tablet PRN umeclidinium 62.5 1 puff 07/16/20 06/12/21 Unknown History mcg-vilanterol INHALATION DAILY 25 mcg/actuation powdr for inhalation (Anoro Ellipta) nystatin 100,000 1 appl TOPICAL 01/05/21 06/12/21 Unknown History unit/gram topical BID powder albuterol sulfate 2.5 mg 06/12/21 06/12/21 Unknown History INHALATION Q4H PRN betamethasone 1 appl TOPICAL 06/12/21 06/12/21 Unknown History dipropionate 0.05 BID % topical ointment bumetanide 2 mg 2 mg PO BID 06/12/21 06/12/21 Unknown History tablet loratadine 10 mg 10 mg PO DAILY 06/12/21 06/12/21 Unknown History tablet midodrine 10 mg 10 mg PO 06/12/21 06/12/21 Unknown History tablet DIRECTED PRN quetiapine 25 mg 25 mg PO BEDTIME 06/12/21 06/12/21 Unknown History tablet Physical Exam Vital Signs: Last Vital Signs Temp 97.8 F 06/12/21 16:00 Pulse 68 06/13/21 06:53 Resp 21 H 06/13/21 06:53 BP 133/62 06/13/21 06:53 Pulse Ox 94 06/13/21 03:45 Verdana 4 Oxygen Flow Verdana 4 2 Verdana 4 06/12/21 Rate Verdana 4 13:16 Verdana 4 Verdana 4 BMI result Verdana 4 Body Mass Index Verdana 4 34.5 Verdana 4 Verdana 4 Const Other: Constitutional : Alert, oriented, not in distress Neck : Normal inspection, Supple Cardiovascular : RRR, S1 S2, trace bilateral lower extremity edema Respiratory : Fair bilateral air entry but decreased in the bases with basal fine crackles bilaterally. Gastrointestinal: soft, lax, Normal bowel sounds, Non tender Skin : Warm, Dry Neurological : Alert & oriented x3, No focal deficit General: alert, awake and ill appearing chronically; No confusion Nutritional Appearance: obese morbidly obese Orientation/consciousness: No confusion Limitations: no limitations HENMT Head: Yes normal to inspection, Yes normocephalic and Yes atraumatic Ears: hearing grossly normal bilaterally General nose exam: Normal external nose present Face and sinus: Yes normal facial exam Mouth: mucous membranes dry Throat: Yes posterior oropharynx normal Eyes Conjunctivae: conjunctivae normal Pupils: Equal, round and reactive pupils present EOM: EOMs intact bilaterally Neck Neck: Yes full ROM, Yes no lymphadenopathy and Yes supple Resp Effort & Inspection: normal respiratory effort, able to speak in complete sentences, no pursed lip breathing, tachypneic, no tripod positioning and no use of accessory muscles Auscultation: clear to auscultation bilaterally, no crackles, no rales, rhonchi throughout and wheezes throughout Cardio Rate: regular rate Rhythm: regular rhythm Heart sounds: S1 normal heart sound present and S2 normal heart sound present GI Inspection: Yes normal to inspection Palpation (GI): Soft to palpation, nontender, no guarding and not rigid Percussion: Yes normal to percussion Auscultation: normal bowel sounds Skin General skin exam: no rashes or lesions noted Neuro General: No confusion Cranial nerves: Yes Equal, round and reactive pupils present Extrem General: Yes normal to inspection and Yes full ROM Psych Appearance: grossly normal Affect: normal affect Attitude: cooperative Thought process: Normal thought process present Results Lab Results Result Diagrams: 06/13/21 06:39 06/13/21 06:39 Lab results: Chemistry 06/12/21 06/13/21 17:14 06:39 Sodium 138 137 Potassium 4.0 D 4.2 Carbon Dioxide 26 23 BUN 20 H 36 H D Creatinine 3.37 H 4.15 H* Calcium 7.6 L D 7.6 L Hematology 06/12/21 06/13/21 15:37 06:39 WBC 6.5 2.6 L Hgb 10.8 L 12.9 Plt Count 62 L 54 L Urinalysis 06/12/21 22:56 Urine Color BRETT Urine Appearance TURBID Urine pH 6.5 Ur Specific [place] 1.020 Urine Protein 3+ H Urine Glucose (UA) 250 H Urine Ketones 5 Urine Blood 3+ H Urine Nitrite POS H Ur Leukocyte Esterase 2+ H Urine RBC QNS Urine WBC QNS Ur Squamous Epith Cells QNS Assessment and Plan (1) ESRD (end stage renal disease): Status: Acute Plan this patient is well-known to us she is a chronic dialysis patient she went to dialysis yesterday for her regular Monday schedule she only stayed 15 minutes due to shortness of breath and got ultrafiltration here at the hospital her labs are stable she now is asymptomatic Procedures Date of Service Date of Service: 06/13/21
[2021-06-13] MEDS: Cholecalciferol (Vitamin D3) 25 MCG TABLET 50 MCG PO (09:40)
[2021-06-13] MEDS: FLUoxetine HCl Oral Solution 20 MG/5 ML SOLUTION PO (09:40)
[2021-06-13] MEDS: Metoprolol Tartrate 25 MG TABLET PO (09:40)
[2021-06-13] MEDS: Loratadine 10 MG TABLET PO (09:40)
[2021-06-13] MEDS: Isosorbide Mononitrate 30 MG TAB.ER.24H PO (09:40)
[2021-06-13] MEDS: 0.9 % Sodium Chloride Flush 3 ML SYRINGE IVFLUSH (09:41)
[2021-06-13] MEDS: Bumetanide 1 MG TABLET 2 MG PO (09:43)
--- NOTE | 2021-06-13 10:36 | MHC.CM.PN ---
Addendum entered by Carol Acevedo 06/13/21 11:54: PT IS CLEARED TO DC HOME TODAY CM CONTACTED PTS DAUGHTER/HCP, KORTNEY, WHO REPORTED HER SISTER WOULD BE HOME TO RECEIVE THE PT SHE ASKED THAT THE RN CALL HER WITH DC INSTRUCTIONS (MESSAGE RELAYED TO PTS NURSE) PT WILL DC HOME VIA [facility] SHE IS BED BOUND AT [facility] PER DISCUSSION WITH PTS DAUGHTER, PT WILL DC AT 1300 HOURS AFTER SHE HAS HAD LUNCH Original Note: PT LIVES WITH HER DAUGHTER AND GRAND DAUGHTERS WHO ALSO ACT HER COMPENSATED CAREGIVERS PT IS BED BOUND AT [facility] AND REQUIRES A MIGUELINA LIFT TO TRANSFER AT HOME PT IS ALSO OXYGEN DEPENDENT PT HAS A HCP ON FILE AND RECORDS INDICATE ROBBY BURDICK IS HER PCP A VM MESSAGE WAS LEFT FOR PTS HCP/PRIMARY CONTACT/DAUGHTER, KORTNEY [phone] INFORMING HER OF PTS MEDICARE RIGHTS AND INTENT TO HAVE A COPY MAILED TO HER CURRENT DC PLAN IS HOME, RESUME [facility] [employer]. PT WILL REQUIRE BLS TRANSPORT
[2021-06-13 11:12] VITALS: BP 137/67; PULSE 75; RESP 16; TEMP 36.8; O2SAT 100
--- NOTE | 2021-06-13 11:15 | PC.NURSE ---
pt a&ox3, resting comfortably, vss, will continue to monitor.
--- NOTE | 2021-06-13 11:16 | P.DS_ITS ---
DS: Providers Provider Date of Service: 06/13/21 Date of admission: 06/12/21 16:52 Primary care physician: Unknown Physician Consults: 06/12/21 16:52 Consult to Nephrology Routine Consulting Provider: Monica Hurst Reason for consultation: need for dialysis, fluid overload DS: Diagnosis Discharge Diagnosis (1) ESRD (end stage renal disease): Status: Acute (2) Fluid overload: Status: Acute (3) Acute hemodialysis patient: Status: Acute DS: Summary Hospital Course Hospital Course: Admission note HPI A 70 years old lady with PMH of ESRD on HD, GERD, pulmonary hypertension, VÍCTOR, CAD among others who presented to the hospital with complaint of difficulty breathing.? The patient developed difficulty breathing while in the dialysis unit 15 minutes enter the assess session today.? She denies any chest pain, palpitation, loss of conscious, weakness in any side. In the emergency she was found to be mildly fluid overloaded with no evidence of acidemia, respiratory distress. Admitted for further evaluation and for inpatient dialysis. Hospital course The patient was admitted from the emergency in her did urgent ultrafiltration done by Nephrology team with good response as hers dyspnea improved significantly and she felt comfortable on 2 L of oxygen which is her home O2. Evaluated by Nephrology team in the morning with a plan to discharge home and to follow-up with dialysis as scheduled Time Spent with Patient Time attestation: Total time spent providing and/or coordinating discharge services: Discharge coordination time: Greater than 30 minutes Quality: Stroke Does the patient have a stroke diagnosis?: No Physical Exam Verdana 4l Vital Signs: Verdana 4d Verdana 4d Vital Signs: Verdana 4d Verdana 4Bd Last Vital Signs Verdana 4d [place] Fisherman New 4d Weir Fisherman New 4d Temp 98.3 F 06/13/21 11:12 [place]man New 4d Pulse 75 06/13/21 11:12 [place]ir Fisherman New 4d Resp 16 06/13/21 11:12 BP 137/67 06/13/21 11:12 Pulse Ox 100 06/13/21 11:12 Oxygen Flow Rate 2 06/12/21 13:16 BMI result Body Mass Index 34.5 Const: Other: Constitutional : Alert, oriented, not in distress Neck : Normal inspection, Supple Cardiovascular : RRR, S1 S2, trace bilateral lower extremity edema Respiratory : Fair bilateral air entry but decreased in the bases , 2 L of oxygen Gastrointestinal: soft, lax, Normal bowel sounds, Non tender Skin : Warm, Dry Neurological : Alert & oriented x3, No focal deficit DS: Data Data Completed and Pending Completed studies during hospitalization [Text1]: Procedures Insertion of Infusion Device into Superior Vena Cava, Percutaneous Approach (05/04/20) Performance of Urinary Filtration, Intermittent, Less than 6 Hours Per Day (07/12/20) Removal of Infusion Device from Upper Vein, Open Approach (05/04/20) Transfusion of Nonautologous Platelets into Peripheral Vein, Percutaneous Approach (05/04/20) Ultrasonography of Superior Vena Cava, Guidance (05/04/20) Labs on day of discharge: Laboratory Results - last 24 hr 06/12/21 06/12/21 06/12/21 15:37 15:37 15:37 WBC 6.5 RBC 3.31 L Hgb 10.8 L Hct 33.9 L MCV 102.4 H MCH 32.6 MCHC 31.9 RDW 14.0 Plt Count 62 L MPV 14.1 H Immature Gran % (Auto) 0.3 Neut % (Auto) 77.3 H Lymph % (Auto) 11.2 L Mathews % (Auto) 8.0 Eos % (Auto) 2.6 Baso % (Auto) 0.6 Lymph # (Auto) 0.7 L Mathews # (Auto) 0.5 Eos # (Auto) 0.2 Baso # (Auto) 0.0 Abs Immat Gran (auto) 0.02 Absolute Neuts (auto) 5.0 Absolute Nucleated RBC 0.000 Nucleated RBC % (auto) 0.0 Sodium Potassium Chloride Carbon Dioxide Anion Gap BUN Creatinine Estim Creat Clear Calc Estimated GFR Random Glucose Lactic Acid 1.1 Calcium Total Bilirubin AST ALT Alkaline Phosphatase Troponin I High Sens 16.5 D B-Natriuretic Peptide 1636 H Total Protein Albumin Urine Color Urine Appearance Urine pH Ur Specific [place] Urine Protein Urine Glucose (UA) Urine Ketones Urine Blood Urine Nitrite Ur Leukocyte Esterase Urine RBC Urine WBC Ur Squamous Epith Cells Urine Bacteria COVID-19 ([facility]) COVID-19 Clin Com 06/12/21 06/12/21 06/12/21 15:37 17:14 22:56 WBC RBC Hgb Hct MCV MCH MCHC RDW Plt Count MPV Immature Gran % (Auto) Neut % (Auto) Lymph % (Auto) Mathews % (Auto) Eos % (Auto) Baso % (Auto) Lymph # (Auto) Mathews # (Auto) Eos # (Auto) Baso # (Auto) Abs Immat Gran (auto) Absolute Neuts (auto) Absolute Nucleated RBC Nucleated RBC % (auto) Sodium 138 Potassium 4.0 D Chloride 103 Carbon Dioxide 26 Anion Gap 13 BUN 20 H Creatinine 3.37 H Estim Creat Clear Calc 15.5 Estimated GFR 13 Random Glucose 164 H Lactic Acid Calcium 7.6 L D Total Bilirubin 1.0 AST 32 H ALT 23 Alkaline Phosphatase 223 H D Troponin I High Sens B-Natriuretic Peptide Total Protein 7.1 Albumin 2.6 L Urine Color BRETT Urine Appearance TURBID Urine pH 6.5 Ur Specific [place] 1.020 Urine Protein 3+ H Urine Glucose (UA) 250 H Urine Ketones 5 Urine Blood 3+ H Urine Nitrite POS H Ur Leukocyte Esterase 2+ H Urine RBC QNS Urine WBC QNS Ur Squamous Epith Cells QNS Urine Bacteria QNS COVID-19 ([facility]) Negative COVID-19 Clin Com See Note 06/13/21 06/13/21 06:39 06:39 WBC 2.6 L RBC 4.02 L D Hgb 12.9 Hct 40.7 D MCV 101.2 H MCH 32.1 MCHC 31.7 RDW 13.7 Plt Count 54 L MPV 14.1 H Immature Gran % (Auto) Neut % (Auto) Lymph % (Auto) Mathews % (Auto) Eos % (Auto) Baso % (Auto) Lymph # (Auto) Mathews # (Auto) Eos # (Auto) Baso # (Auto) Abs Immat Gran (auto) Absolute Neuts (auto) Absolute Nucleated RBC 0.000 Nucleated RBC % (auto) 0.0 Sodium 137 Potassium 4.2 Chloride 102 Carbon Dioxide 23 Anion Gap 16 BUN 36 H D Creatinine 4.15 H* Estim Creat Clear Calc 12.6 Estimated GFR 11 Random Glucose 298 H Lactic Acid Calcium 7.6 L Total Bilirubin AST ALT Alkaline Phosphatase Troponin I High Sens B-Natriuretic Peptide Total Protein Albumin Urine Color Urine Appearance Urine pH Ur Specific [place] Urine Protein Urine Glucose (UA) Urine Ketones Urine Blood Urine Nitrite Ur Leukocyte Esterase Urine RBC Urine WBC Ur Squamous Epith Cells Urine Bacteria COVID-19 ([facility]) COVID-19 Clin Com Discharge Plan Discharge Patient Disposition: Home, Self-Care Discharge Diagnosis: Fluid overload Referrals: Physician,Unknown J [Primary Care Provider] - 1 Week Discharge Medications: Continued atorvastatin 40 mg tablet 40 mg PO BEDTIME 0RF metoprolol tartrate 25 mg tablet 25 mg PO BID 0RF cholecalciferol (vitamin D3) 50 mcg (2,000 unit) tablet 50 mcg PO QAM 0RF fluoxetine 20 mg/5 mL (4 mg/mL) solution 5 ml PO DAILY 0RF quetiapine 25 mg tablet 25 mg PO BEDTIME PRN (Reason: Sleep) 0RF Rx Instructions: GIVE AT LEAST 1 HR POST SCHEDULED BEDTIME DOSE PRN clopidogrel 75 mg tablet 1 tab PO BEDTIME 0RF lorazepam 0.5 mg tablet 0.5 mg PO DAILY PRN (Reason: Anxiety) 0RF Anoro Ellipta 62.5-25 mcg/actuation blister with device 1 puff inhalation DAILY 0RF isosorbide mononitrate 30 mg tablet extended release 24 hr 30 mg PO DAILY Qty: 30 0RF albuterol sulfate [ProAir HFA] 90 mcg/actuation HFA aerosol inhaler 2 puff inhalation Q4-6H PRN (Reason: Wheezing) Qty: 8.5 0RF betamethasone dipropionate 0.05 % ointment 1 appl topical BID 0RF midodrine 10 mg tablet 10 mg PO DIRECTED PRN (Reason: before dialysis) 0RF quetiapine 25 mg tablet 25 mg PO BEDTIME 0RF bumetanide 2 mg tablet 2 mg PO BID 0RF Rx Instructions: HOLD ON MONDAY, MONDAY, MONDAY albuterol sulfate 2.5 mg /3 mL (0.083 %) Solution For Nebulization 2.5 mg INHALATION Q4H PRN (Reason: Shortness Of Breath Or Wheezing) 0RF loratadine 10 mg Tablet 10 mg PO DAILY 0RF nystatin 100,000 unit/gram powder 1 appl topical BID 0RF Discharge Orders: Discharge Order (Routine); Ordered 06/13/21 Ordered By: Bernie Ricks Diet: low salt diet Activity on Discharge: As tolerated Stand Alone Forms: Patient Portal Discharge page Care Plan Goals: Read below Health Concerns: Read below Plan of Treatment: Read below Assessment: You were admitted to the hospital for difficulty breathing as a result of fluid overload. Had dialysis session done with good response. To follow-up with dialysis as outpatient.
--- NOTE | 2021-06-13 12:04 | PC.NURSE ---
spoke with Paulina, pt's daughter, and reviewed discharge instructions, daughter understood and had no further questions. ambulance to pick pt up around 1300 to return home.
== END 2021-06-13 13:59 | disposition home or self-care (01) | DRG 291 ==
LOC: HO.ED 16:14 → HO.EDOVER 17:03
PROVIDERS: Physician Assistant; Admitting Provider Student in an Organized Health Care Education/Training Program; Emergency Provider Emergency Medicine; Visit Provider Student in an Organized Health Care Education/Training Program
DX: I13.2 Hypertensive heart and chronic kidney disease with heart failure and with stage 5 chronic kidney disease, or end stage renal disease (principal); N18.6 End stage renal disease; E87.79 Other fluid overload; I50.32 Chronic diastolic (congestive) heart failure; Z20.822 Contact with and (suspected) exposure to COVID-19; Z99.2 Dependence on renal dialysis; I25.10 Atherosclerotic heart disease of native coronary artery without angina pectoris; G47.33 Obstructive sleep apnea (adult) (pediatric); D63.1 Anemia in chronic kidney disease; Z99.81 Dependence on supplemental oxygen; F39 Unspecified mood [affective] disorder; E11.22 Type 2 diabetes mellitus with diabetic chronic kidney disease; Z88.0 Allergy status to penicillin; Z88.6 Allergy status to analgesic agent; Z79.02 Long term (current) use of antithrombotics/antiplatelets; Z79.899 Other long term (current) drug therapy
CPT/HCPCS: 36415; 71046; 80048; 80053; 81001; 81003; 83605; 83880; 84484; 85025; 85027; 87040; 87086; 87635; 90999; 93005; 94640; 96374; 99284; 99285; J2930

== ENCOUNTER 2021-06-19 14:04 | Inpatient (IN) | payer MEDICARE, MEDICAID, SELFPAY ==
[2021-06-19] VITALS (7 sets, daily range): BP systolic 106–142; BP diastolic 58–84; PULSE 64–88; RESP 18–33; TEMP 36.5–36.8; O2SAT 83–100; BMI 34.7
--- NOTE | ~2021-06-19 | XR_ITS ---
EXAMINATION: XR CHEST CLINICAL INFORMATION: Shortness of breath COMPARISON: June 12, 2021 and May 05, 2021 as well as May 04, 2020 TECHNIQUE: AP portable view of the chest was obtained. FINDINGS: There is a large bore left internal jugular central venous catheter in place with the appearance of possible dialysis catheter. Tip lies within the right atrium. There are regions of interstitial and airspace disease seen bilaterally similar but increased when compared to previous study dating back to May 12, 2020. Some this appears to be related to chronic interstitial disease and scarring as well as probable superimposed pulmonary edema of cardiogenic or noncardiogenic etiology. The cardiopericardial silhouette is mildly enlarged. No pneumothorax is seen. Old proximal left humeral fracture present. There is scoliosis of the thoracic spine convex right. XR/XR chest 1V IMPRESSION: Appearance of acute on chronic disease with the appearance of superimposed pulmonary edema of cardiogenic or noncardiogenic etiology.
--- NOTE | 2021-06-19 14:51 | ECG_ITS ---
Test Reason : DYSPNEA Blood Pressure : / mmHG Vent. Rate : 079 BPM Atrial Rate : 079 BPM P-R Int : 134 ms QRS Dur : 088 ms QT Int : 390 ms P-R-T Axes : 046 045 034 degrees QTc Int : 447 ms Artifact in tracing Normal sinus rhythm Normal ECG When compared with ECG of 12-JUN-2021 15:42, No significant change was found Referred By: Randi Quinn Electronically Signed By:PARKER FLOWER
--- NOTE | 2021-06-19 15:29 | ED_ITS ---
HPI - General Adult General Chief complaint: Dyspnea Stated complaint: SOB FROM DIALYSIS:HALF TX DONE Time Seen by Provider: 06/19/21 14:10 Source: patient Mode of arrival: EMS Limitations: language barrier History of Present Illness HPI narrative: 70-year-old female with a past medical history of CHF, end-stage renal disease on dialysis, diabetes, COPD, bacteremia, anemia, pneumonia, asthma, HTN and UTI,? presents for shortness of breath while at dialysis at 11:00 a.m. today.? Patient has dialysis at [facility], Dr. Huerta is her patient care representative.? she has dialysis on Mondays, , and Monday. ? Today she was supposed to have dialysis from 08:00 to 15:00. However she had to finish at noon because she became short of breath. No cough, no fever, no chest pain, no abdominal pain, no vomiting, no diarrhea. Patient has been eating and drinking fine. She is on 3 L of oxygen at home at baseline She lives with her daughter Related Data Home Medications Medication Instructions Recorded Confirmed atorvastatin 40 mg tablet 40 mg PO BEDTIME 04/24/20 06/12/21 cholecalciferol (vitamin D3) 50 mcg PO QAM 04/24/20 06/12/21 50 mcg (2,000 unit) tablet metoprolol tartrate 25 mg 25 mg PO BID 04/24/20 06/12/21 tablet clopidogrel 75 mg tablet 1 tab PO BEDTIME 07/16/20 06/12/21 fluoxetine 20 mg/5 mL (4 5 ml PO DAILY 07/16/20 06/12/21 mg/mL) oral solution lorazepam 0.5 mg tablet 0.5 mg PO DAILY PRN 07/16/20 06/12/21 quetiapine 25 mg tablet 25 mg PO BEDTIME PRN 07/16/20 06/12/21 umeclidinium 62.5 1 puff INHALATION DAILY 07/16/20 06/12/21 mcg-vilanterol 25 mcg/actuation powdr for inhalation (Anoro Ellipta) nystatin 100,000 unit/gram 1 appl TOPICAL BID 01/05/21 06/12/21 topical powder albuterol sulfate 2.5 mg INHALATION Q4H PRN 06/12/21 06/12/21 betamethasone dipropionate 1 appl TOPICAL BID 06/12/21 06/12/21 0.05 % topical ointment bumetanide 2 mg tablet 2 mg PO BID 06/12/21 06/12/21 loratadine 10 mg tablet 10 mg PO DAILY 06/12/21 06/12/21 midodrine 10 mg tablet 10 mg PO DIRECTED PRN 06/12/21 06/12/21 quetiapine 25 mg tablet 25 mg PO BEDTIME 06/12/21 06/12/21 Previous Rx's Medication Instructions Recorded isosorbide mononitrate 30 mg 30 mg PO DAILY #30 tab 07/17/20 tablet,extended release 24 hr albuterol sulfate 90 mcg/actuation 2 puff INHALATION Q4-6H PRN #8.5 05/26/21 g aerosol inhaler (ProAir HFA) Allergies Allergy/AdvReac Type Severity Reaction Status Date / Time Penicillins Allergy Severe Anaphylaxis, Verified 01/05/21 08:49 hives acetaminophen [From Allergy Unknown Unknown Verified 01/05/21 08:49 TYLENOL] aspirin [ASPIRIN] Allergy Unknown rash, Verified 01/05/21 08:49 stomach upset diazepam [From Allergy Unknown RESP Verified 01/05/21 08:49 VALIUM] FAILURE penicillin V Allergy Unknown edema Verified 01/05/21 08:49 metformin [Metformin] AdvReac Mild DIARRHEA Verified 01/05/21 08:49 Review of Systems Verdana 4l Constitutional: Verdana 4d Constitutional: Verdana 4d Verdana 4d Denies body ache(s), Denies chills, Denies fatigue, Denies fever(s) and Denies headache(s) Verdana 4l ENT: Verdana 4d Denies vertigo, Denies dizziness, Denies otalgia, Denies headache(s), Denies post nasal drip and Denies sore throat Verdana 4l Cardiovascular: Verdana 4d Cardiovascular: Verdana 4d Verdana 4d Denies chest pain, Denies syncope, Denies leg edema, Denies lightheadedness, Denies Loss of Consciousness, Denies palpitations and Reports dyspnea Verdana 4l Respiratory: Verdana 4d Verdana 4d Respiratory: Verdana 4d Denies chest congestion, Denies cough and Reports dyspnea Verdana 4l Gastrointestinal: Verdana 4d Gastrointestinal: Verdana 4d Verdana 4d Denies abdominal pain, Denies hematochezia, Denies constipation, Denies diarrhea, Denies nausea and Denies vomiting Verdana 4l Musculoskeletal: Verdana 4d Musculoskeletal: Verdana 4d Verdana 4d Reports no additional musculoskeletal complaints Verdana 4l Neurologic: Verdana 4d Denies confusion, Denies vertigo, Denies dizziness, Denies syncope and Denies headache(s) Verdana 4l Psychiatric: Verdana 4d Verdana 4d Psychiatric: Verdana 4d Denies anxiety, Denies confusion and Denies depression Verdana 4l Endocrine: Verdana 4d Verdana 4d Endocrine: Verdana 4d Denies fatigue and Denies palpitations PMFSH Past Medical History Medical History Anemia Anemia Bacteremia due to Staphylococcus Bipolar disorder Chronic diarrhea Constipation COPD (chronic obstructive pulmonary disease) Diabetes Diastolic CHF Diastolic dysfunction Dislodged gastrostomy tube Diverticulitis Dyspnea ESRD (end stage renal disease) ESRD (end stage renal disease) Hyperlipidemia Hypertension Pneumonia Renal failure Thrombocytopenia Social History Social History Household Members: Children Household Members Other:: daughter Housing: Apartment Do you presently have visiting nurse or other home services: No Unable to assess alcohol history related to: Unknown Alcohol intake: never Years Smoked: many years Advance Directives: Yes Advance Directives on File: Yes Advance Directives Date on File: 06/12/20 service: No Current occupational status: retired and disabled Physical Exam Verdana 4l Vital Signs: Verdana 4d Verdana 4d Vital Signs: Verdana 4d Verdana 4Bd Last Vital Signs Verdana 4d Vocational Services Specialist New 4d Vocational Services Specialist New 4d Temp 98.2 F 06/19/21 17:25 Vocational Services Specialist New 4d Pulse 77 06/19/21 17:25 Vocational Services Specialist New 4d Resp 29 H 06/19/21 17:25 BP 142/58 H 06/19/21 17:25 Pulse Ox 100 06/19/21 17:25 Oxygen Flow Rate 3 06/19/21 14:11 BMI result Body Mass Index 34.7 Const: General: ill appearing chronically; No confusion Nutritional Appearance: obese morbidly obese Orientation/consciousness: patient oriented x3 and No confusion Limitations: language barrier HENMT: Head: Yes normal to inspection, Yes normocephalic and Yes atraumatic Ears: hearing grossly normal bilaterally, external ears normal, TM's normal bilaterall y and EAC's normal General nose exam: Normal external nose present Face and sinus: Yes normal facial exam and Yes sinuses nontender Mouth: Normal oral and palatal mucosa present Throat: Yes posterior oropharynx normal Eyes: Conjunctivae: conjunctivae normal Pupils: Equal, round and reactive pupils present EOM: EOMs intact bilaterally Neck: Neck: Yes full ROM, Yes no lymphadenopathy and Yes supple Resp: Effort & Inspection: normal respiratory effort and able to speak in complete sentences Auscultation: no crackles, no rales, rhonchi throughout and no wheezes Cardio: Rate: regular rate Rhythm: regular rhythm Heart sounds: S1 normal heart sound present and S2 normal heart sound present GI: Inspection: Yes normal to inspection Palpation (GI): Soft to palpation, nontender, no guarding and not rigid Percussion: Yes normal to percussion Auscultation: normal bowel sounds Skin: Other: bronzing of skin Neuro: General: patient oriented x3 and No confusion Cranial nerves: Yes Equal, round and reactive pupils present Extrem: General: Yes normal to inspection and Yes full ROM Psych: Appearance: grossly normal Affect: normal affect Attitude: cooperative Thought process: Normal thought process present Course Course Course Narrative: 70-year-old female who became short of breath while she was getting her dialysis treatment at 12:00 a.m. today, she was? unable to finish dialysis. States she only got 3 hours of her treatment which was to go from 8am to 3pm. ?On exam, patient is chronically ill-appearing, is obese, Greek-speaking, is tachypneic at 33 respirations per minute, but has no retractions, is able to speak in full sentences, no tripoding or pursed lip breathing. ? Afebrile. ? Lung exam reveals crackles and rhonchi throughout Labs are remarkable for creatinine of 2.51, potassium 3.4, BNP 1491, which is reduced from 3 days ago when it was 1636. Initial troponin 15.7. EKG shows no acute ischemia. Ordered 2nd troponin at the 3 hour nena. Chest x-ray shows pulmonary edema and enlarged pericardial silhouette Called for nephrology consult XR/XR chest 1V IMPRESSION: Appearance of acute on chronic disease with the appearance of superimposed pulmonary edema of cardiogenic or noncardiogenic etiology. Reevaluation(s) Reevaluation #1: On re-exam, pt is resting more comfortably, RR is 20 now, BP 142/[address] Rodriguez who will bring in dialysis nurse and start dialysis on this pt tonight. Dr Corrales accepted to hospitalist service Medical Decision Making Medical Records Medical records reviewed: Yes I reviewed the patient's medical records. Lab Data Lab results reviewed: Yes I reviewed the patient's lab results. Result diagrams: 06/19/21 15:36 06/19/21 15:37 Labs: Lab Results 06/19/21 06/19/21 06/19/21 Range/Units 15:33 15:33 15:36 WBC 5.9 (4.8-10.8) X10*3/uL RBC 3.31 L (4.20-5.50) X10*6/uL Hgb 10.8 L (12.0-16.0) g/dl Hct 34.3 L (37.0-47.0) % MCV 103.6 H (80.0-98.0) fL MCH 32.6 (27.0-33.0) pg MCHC 31.5 (31.0-35.0) g/dl RDW 14.5 (11.0-16.0) % Plt Count 60 L (160-400) X10*3/uL MPV 13.2 H (9.4-12.3) fL Immature Gran % (Auto) 0.5 H (0.0-0.4) % Neut % (Auto) 71.6 (45-73) % Lymph % (Auto) 15.0 L (20-40) % [place] % (Auto) 7.8 (2-11) % Eos % (Auto) 4.8 H (0-4) % Baso % (Auto) 0.3 (0-2) % Lymph # (Auto) 0.9 L (1.2-4.9) X10*3/uL [place] # (Auto) 0.5 (0.1-1.2) X10*3/uL Eos # (Auto) 0.3 (0.0-0.4) X10*3/uL Baso # (Auto) 0.0 (0.0-0.2) X10*3/uL Abs Immat Gran (auto) 0.03 (0.00-0.03) X10*3/uL Absolute Neuts (auto) 4.2 (2.0-8.3) x10*3/uL Absolute Nucleated RBC 0.000 (0.0-0.012) X10*3/uL Nucleated RBC % (auto) 0.0 (0.0-0.2) /100WBC Sodium (135-145) mmol/L Potassium (3.3-5.1) mmol/L Chloride (96-108) mmol/L Carbon Dioxide (22-29) mmol/L Anion Gap (12-20) BUN (9-16) mg/dL Creatinine (0.5-1.4) mg/dL Estim Creat Clear Calc Estimated GFR Random Glucose (60-115) mg/dL Lactic Acid 1.1 (0.5-2.0) mmol/L Calcium (8.4-10.2) mg/dL Total Bilirubin (0.0-1.0) mg/dL AST (5-31) U/L ALT (0-31) U/L Alkaline Phosphatase (39-117) U/L Troponin I High Sens (<3.5-17.0) ng/L B-Natriuretic Peptide (<100) pg/mL Total Protein (6.5-8.0) g/dL Albumin (3.5-5.0) g/dL COVID-19 ([facility]) Negative (Negative) COVID-19 Clin Com See Note 06/19/21 06/19/21 Range/Units 15:36 15:37 WBC (4.8-10.8) X10*3/uL RBC (4.20-5.50) X10*6/uL Hgb (12.0-16.0) g/dl Hct (37.0-47.0) % MCV (80.0-98.0) fL MCH (27.0-33.0) pg MCHC (31.0-35.0) g/dl RDW (11.0-16.0) % Plt Count (160-400) X10*3/uL MPV (9.4-12.3) fL Immature Gran % (Auto) (0.0-0.4) % Neut % (Auto) (45-73) % Lymph % (Auto) (20-40) % [place] % (Auto) (2-11) % Eos % (Auto) (0-4) % Baso % (Auto) (0-2) % Lymph # (Auto) (1.2-4.9) X10*3/uL [place] # (Auto) (0.1-1.2) X10*3/uL Eos # (Auto) (0.0-0.4) X10*3/uL Baso # (Auto) (0.0-0.2) X10*3/uL Abs Immat Gran (auto) (0.00-0.03) X10*3/uL Absolute Neuts (auto) (2.0-8.3) x10*3/uL Absolute Nucleated RBC (0.0-0.012) X10*3/uL Nucleated RBC % (auto) (0.0-0.2) /100WBC Sodium 139 (135-145) mmol/L Potassium 3.4 (3.3-5.1) mmol/L Chloride 102 (96-108) mmol/L Carbon Dioxide 32 H (22-29) mmol/L Anion Gap 8 L (12-20) BUN 12 D (9-16) mg/dL Creatinine 2.51 H (0.5-1.4) mg/dL Estim Creat Clear Calc 20.9 Estimated GFR 19 Random Glucose 216 H (60-115) mg/dL Lactic Acid (0.5-2.0) mmol/L Calcium 7.8 L (8.4-10.2) mg/dL Total Bilirubin 1.2 H (0.0-1.0) mg/dL AST 30 (5-31) U/L ALT 27 (0-31) U/L Alkaline Phosphatase 275 H D (39-117) U/L Troponin I High Sens 15.7 (<3.5-17.0) ng/L B-Natriuretic Peptide 1491 H (<100) pg/mL Total Protein 6.6 (6.5-8.0) g/dL Albumin 2.7 L (3.5-5.0) g/dL COVID-19 ([facility]ON) (Negative) COVID-19 Clin Com ECG Data Interpretation: Sinus at a rate of 79, normal axis. MD interval 134, QRS 88, QTC 447, PVC noted, no ST depression or elevation, no T-wave abnormalities Discharge Plan Discharge Clinical Impression: Dyspnea, ESRF (end stage renal failure) Patient Disposition: Admitted As Inpatient
[2021-06-19 15:43] LABS: MANUAL DIFF FLAG NO
[2021-06-19 15:44] LABS: Basophils Percent Auto 0.3 % (0-2); Eosinophils Absolute Auto 0.3 X10*3/uL (0.0-0.4); Eosinophils Percent Auto 4.8 % (0-4); Hematocrit 34.3 % (37.0-47.0); Hemoglobin 10.8 g/dl (12.0-16.0); Imm Gran Abs Auto 0.03 X10*3/uL (0.00-0.03); Imm Gran Pct Auto 0.5 % (0.0-0.4); Lymphocytes Absolute Auto 0.9 X10*3/uL (1.2-4.9); Mean Corpuscular HGB Conc 31.5 g/dl (31.0-35.0); Mean Corpuscular Hemoglobin 32.6 pg (27.0-33.0); Mean Corpuscular Volume 103.6 fL (80.0-98.0); Mean Platelet Volume 13.2 fL (9.4-12.3); Monocytes Absolute Auto 0.5 X10*3/uL (0.1-1.2); Monocytes Percent Auto 7.8 % (2-11); Neutrophils Absolute Auto 4.2 x10*3/uL (2.0-8.3); Neutrophils Percent Auto 71.6 % (45-73); Red Blood Count 3.31 X10*6/uL (4.20-5.50); Red Cell Distribution Width 14.5 % (11.0-16.0); White Blood Count 5.9 X10*3/uL (4.8-10.8)
[2021-06-19 15:46] LABS: Platelet Count 60 X10*3/uL (160-400)
[2021-06-19 15:57] LABS: Lactic Acid 1.1 mmol/L (0.5-2.0)
[2021-06-19 16:01] LABS: B Type Natriuretic Peptide 1491 pg/mL (<100); Troponin-I High Sensitivity 15.7 ng/L (<3.5-17.0)
[2021-06-19 16:03] LABS: Alanine Aminotransferase 27 U/L (0-31); Albumin Level 2.7 g/dL (3.5-5.0); Alkaline Phosphatase 275 U/L (39-117); Anion Gap 8 (12-20); Aspartate Amino Transferase 30 U/L (5-31); Bilirubin Total 1.2 mg/dL (0.0-1.0); Blood Urea Nitrogen 12 mg/dL (9-16); Calcium 7.8 mg/dL (8.4-10.2); Carbon Dioxide 32 mmol/L (22-29); Chloride 102 mmol/L (96-108); Creatinine Clr Calc Pharmacy 20.9; Estimated Glomerular Filt Rate 19; Glucose Random 216 mg/dL (60-115); Potassium 3.4 mmol/L (3.3-5.1); Sodium 139 mmol/L (135-145); Total Protein 6.6 g/dL (6.5-8.0)
[2021-06-19 16:05] LABS: COVID-19 Test Negative (Negative); IDNOW Serial# 9DD0AD1C
--- NOTE | 2021-06-19 18:09 | P.HPHOSP_ITS ---
History of Present Illness Date of Service: 06/19/21 Chief Complaint: Shortness of breath 70 years old female with multiple medical problems including of ESRD on TTS , GERD, pulmonary hypertension, VÍCTOR, CAD, COPD, unspecified heart failure, discharged on 06/14/21 with fluid overload that necessitated urgent dialysis. She was at dialysis and in mid session was short of breath, feeling dizzy and sent to the ED and noted to be tachypnic and hypoxic with O2 sat of 83 with good response after oxygen, covid negative. CXR shows pulmonary edema, has no chest pain, normal troponin of 15, [id number]. Nephrology is making arrangement to dialysed tonight Review of Systems Verdana 4l Review of Systems: Verdana 4d Verdana 4Bd Gen: Verdana 4d no fever Verdana 4Bd Resp: Verdana 4d +sob, no cough Verdana 4Bd CV: Verdana 4d no chest, +GARZA, + leg edema Verdana 4Bd GI: Verdana 4d No n/v, no abd pain Verdana 4Bd Neuro: Verdana 4d No confusion Verdana 4d Yes all other systems are reviewed and are negative [facility] Medical History Anemia Anemia Bacteremia due to Staphylococcus Bipolar disorder Chronic diarrhea Constipation COPD (chronic obstructive pulmonary disease) Diabetes Diastolic CHF Diastolic dysfunction Dislodged gastrostomy tube Diverticulitis Dyspnea ESRD (end stage renal disease) ESRD (end stage renal disease) Hyperlipidemia Hypertension Pneumonia Renal failure Thrombocytopenia Pertinent family history: She reports no family history of CAD or chronic kidney disease Social History Household Members: Children Household Members Other:: daughter Housing: Apartment Do you presently have visiting nurse or other home services: No Unable to assess alcohol history related to: Unknown Alcohol intake: never Years Smoked: many years Advance Directives: Yes Advance Directives on File: Yes Advance Directives Date on File: 06/12/20 service: No Current occupational status: retired and disabled Meds Allergies Allergy/AdvReac Type Severity Reaction Status Date / Time Penicillins Allergy Severe Anaphylaxis, Verified 01/05/21 08:49 hives acetaminophen [From Allergy Unknown Unknown Verified 01/05/21 08:49 TYLENOL] aspirin [ASPIRIN] Allergy Unknown rash, Verified 01/05/21 08:49 stomach upset diazepam [From Allergy Unknown RESP Verified 01/05/21 08:49 VALIUM] FAILURE penicillin V Allergy Unknown edema Verified 01/05/21 08:49 metformin [Metformin] AdvReac Mild DIARRHEA Verified 01/05/21 08:49 Active Medications: Current Medications Acetaminophen (Acetaminophen 325 Mg Tablet) 650 mg PO Q6H PRN PRN Reason: Pain, Mild (Pain Scale 1-3) Melatonin (Melatonin 3 Mg Tablet) 6 mg PO BEDTIME PRN PRN Reason: Insomnia Pharmacy Consult (Consult Rx Perform Med Rec) 1 each MISCELLANE ONCE PRN PRN Reason: Consult order Sodium Chloride (0.9 % Sodium Chloride Flush 3 Ml Syringe) 3 ml IVFLUSH [facility] Home Medications Medication Instructions Recorded Confirmed Last Taken Type atorvastatin 40 40 mg PO BEDTIME 04/24/20 06/12/21 Unknown History mg tablet cholecalciferol 50 mcg PO QAM 04/24/20 06/12/21 Unknown History (vitamin D3) 50 mcg (2,000 unit) tablet metoprolol 25 mg PO BID 04/24/20 06/12/21 Unknown History tartrate 25 mg tablet clopidogrel 75 mg 1 tab PO BEDTIME 07/16/20 06/12/21 Unknown History tablet fluoxetine 20 5 ml PO DAILY 07/16/20 06/12/21 Unknown History mg/5 mL (4 mg/mL) oral solution lorazepam 0.5 mg 0.5 mg PO DAILY 07/16/20 06/12/21 Unknown History tablet PRN quetiapine 25 mg 25 mg PO BEDTIME 07/16/20 06/12/21 Unknown History tablet PRN umeclidinium 62.5 1 puff 07/16/20 06/12/21 Unknown History mcg-vilanterol INHALATION DAILY 25 mcg/actuation powdr for inhalation (Anoro Ellipta) nystatin 100,000 1 appl TOPICAL 01/05/21 06/12/21 Unknown History unit/gram topical BID powder albuterol sulfate 2.5 mg 06/12/21 06/12/21 Unknown History INHALATION Q4H PRN betamethasone 1 appl TOPICAL 06/12/21 06/12/21 Unknown History dipropionate 0.05 BID % topical ointment bumetanide 2 mg 2 mg PO BID 06/12/21 06/12/21 Unknown History tablet loratadine 10 mg 10 mg PO DAILY 06/12/21 06/12/21 Unknown History tablet midodrine 10 mg 10 mg PO 06/12/21 06/12/21 Unknown History tablet DIRECTED PRN quetiapine 25 mg 25 mg PO BEDTIME 06/12/21 06/12/21 Unknown History tablet Physical Exam Verdana 4l Vital Signs and Narrative: Verdana 4d Verdana 4d Vital Signs: Verdana 4d Verdana 4Bd Last Vital Signs Verdana 4d Facilities Maintenance Engineer New 4d Facilities Maintenance Engineer New 4d Temp 98.2 F 06/19/21 17:25 Facilities Maintenance Engineer New 4d Pulse 77 06/19/21 17:25 Facilities Maintenance Engineer New 4d Resp 29 H 06/19/21 17:25 BP 142/58 H 06/19/21 17:25 Pulse Ox 100 06/19/21 17:25 Oxygen Flow Rate 3 06/19/21 14:11 BMI result Body Mass Index 34.7 Const: Other: Constitutional: Alert, in no distress, overweight. Mental Status: Oriented to person, place and time. Eyes: Pupils are equal, round and reactive to light. Ear, Nose and Throat: Oropharynx clear, mucous membranes moist. Ears and nose without eformities. Trachea midline. Respiratory: rales at bases. No wheezing, rales or rhonchi. Cardiovascular: S1 S2 regular. No murmurs, rubs or gallops. 1 + pedal edema Gastrointestinal: Abdomen soft, non-tender, non-distended. Normal bowel sounds.? Neurologic: Cranial nerves II-XII grossly intact. No focal neurological deficits. Moves all extremities spontaneously.? Skin: No rashes or lesions.? Musculoskeletal: No cyanosis or clubbing. Psychiatric: Normal mood and affect? Results Labs CBC and Chem 7: 06/19/21 15:36 06/19/21 15:37 Labs: Laboratory Results - last 24 hr 06/19/21 06/19/21 06/19/21 15:33 15:33 15:36 MCV 103.6 H MCH 32.6 MCHC 31.5 RDW 14.5 Plt Count 60 L MPV 13.2 H Immature Gran % (Auto) 0.5 H Neut % (Auto) 71.6 Lymph % (Auto) 15.0 L [place] % (Auto) 7.8 Eos % (Auto) 4.8 H Baso % (Auto) 0.3 Lymph # (Auto) 0.9 L [place] # (Auto) 0.5 Eos # (Auto) 0.3 Baso # (Auto) 0.0 Abs Immat Gran (auto) 0.03 Absolute Neuts (auto) 4.2 Absolute Nucleated RBC 0.000 Nucleated RBC % (auto) 0.0 Anion Gap Estim Creat Clear Calc Estimated GFR Random Glucose Lactic Acid 1.1 Calcium Total Bilirubin AST ALT Alkaline Phosphatase B-Natriuretic Peptide Total Protein Albumin COVID-19 ([facility]) Negative COVID-19 Clin Com See Note 06/19/21 06/19/21 15:36 15:37 MCV MCH MCHC RDW Plt Count MPV Immature Gran % (Auto) Neut % (Auto) Lymph % (Auto) [place] % (Auto) Eos % (Auto) Baso % (Auto) Lymph # (Auto) [place] # (Auto) Eos # (Auto) Baso # (Auto) Abs Immat Gran (auto) Absolute Neuts (auto) Absolute Nucleated RBC Nucleated RBC % (auto) Anion Gap 8 L Estim Creat Clear Calc 20.9 Estimated GFR 19 Random Glucose 216 H Lactic Acid Calcium 7.8 L Total Bilirubin 1.2 H AST 30 ALT 27 Alkaline Phosphatase 275 H D B-Natriuretic Peptide 1491 H Total Protein 6.6 Albumin 2.7 L COVID-19 ([facility]) COVID-19 Clin Com Imaging Radiologist's Impressions: Impressions Chest X-Ray 06/19/21 15:26 IMPRESSION: Appearance of acute on chronic disease with the appearance of superimposed pulmonary edema of cardiogenic or noncardiogenic etiology. Assessment and Plan (1) ESRF (end stage renal failure): Status: Acute (2) Fluid overload: Status: Acute Plan 70/F with ESRD here with fluid overload causing acute hypoxic respiratory failure and in need of acute, urgent dialysis Acute hypoxic resp failure due to hypervolemia. -Urgent dialysis being arranged by Nephrology tonight -Oxygen Hypertension Continue metoprolol and Imdur ? Anemia of chronic dz --H/H stable Chronic respiratory failure/COPD-- Continue 2L home O2, no exacerbation CAD-, no chest pain, Continue Lopressor, plavix HLD--Continue statin Mood-- fluoxetine, seroquel DVT--Heparin if staty in hospital beyond tomorrow plan discussed with her via bass mechanism maker Quality Stroke Does the patient have a stroke diagnosis?: No VTE Prior VTE?: No VTE Risk Level:: Medical - low VTE Device Contraindication: Treatment Not Indicated VTE Drug Contraindication: Treatment Not Indicated
[2021-06-19] MEDS: Albuterol/Iprat 2.5/0.5MG 3 ML AMPUL.NEB INHALE (18:15)
--- NOTE | 2021-06-19 18:47 | PHA.MEDREC ---
Pharmacy Consult ? Medication Reconciliation Pharmacy has completed the medication reconciliation. Confirmed medications with patient's daughter Paulina. She reports patient still takes bumetadine on non diaylsis days. Midodrine is for dialysis, 1 before and 1 during. Paulina will bring in patient's inhaler tomorrow morning. Emilie Bustos, MargaretD
[2021-06-19 19:12] LABS: Troponin-I High Sensitivity 15.5 ng/L (<3.5-17.0)
--- NOTE | 2021-06-19 20:17 | PC.NURSE ---
Assumed care of pt at this time from main ED. Pt awake and alert, Vincentian speaking, endorsing L hip pain w/ movement from stretcher to hospital bed. Pt to be transported to inpatient dialysis at this time
[2021-06-20 07:03] VITALS: BP 110/89; PULSE 75; RESP 20; O2SAT 96
--- NOTE | 2021-06-20 09:26 | P.DS_ITS ---
DS: Providers Provider Date of Service: 06/20/21 Date of admission: 06/19/21 18:07 Primary care physician: Jennifer Loya MD Consults: 06/19/21 18:09 Consult to Nephrology Routine Consulting Provider: Alok Schuster Reason for consultation: esrd Has provider been notified: No DS: Diagnosis Discharge Diagnosis (1) ESRF (end stage renal failure): Status: Acute (2) Fluid overload: Status: Acute DS: Summary Hospital Course Hospital Course: Chief Complaint: Shortness of breath 70 years old female with multiple medical problems including of ESRD on TTS ,? GERD, pulmonary hypertension, VÍCTOR, CAD, COPD, unspecified heart failure, discharged on 06/14/21? with fluid overload that necessitated urgent dialysis. She was at dialysis? and in mid session was short of breath, feeling dizzy and sent to the ED and noted to be tachypnic and hypoxic with O2 sat of 83 with good response after oxygen, covid negative. CXR shows pulmonary edema, has no chest pain, normal troponin of 15,? [id number]. Nephrology is making arrangement to dialysed [facility] course: She was admitted overnight and underwent imidiate dialysis for fluid removal with improvement in symptoms and will resume usual outpatient schedule starting monday. Time Spent with Patient Time attestation: Total time spent providing and/or coordinating discharge services: Discharge coordination time: Greater than 30 minutes Quality: Stroke Does the patient have a stroke diagnosis?: No Physical Exam Verdana 4l Vital Signs: Verdana 4d Verdana 4d Vital Signs: Verdana 4d Verdana 4Bd Last Vital Signs Verdana 4d Fisher Eel New 4d Fisher Eel New 4d Temp 98.2 F 06/19/21 17:25 Fisher Eel New 4d Pulse 75 06/20/21 07:03 Fisher Eel New 4d Resp 20 06/20/21 07:03 BP 110/89 06/20/21 07:03 Pulse Ox 96 06/20/21 07:03 Oxygen Flow Rate 3 06/19/21 14:11 BMI result Body Mass Index 34.7 DS: Data Data Completed and Pending Completed studies during hospitalization [Text1]: Procedures Insertion of Infusion Device into Superior Vena Cava, Percutaneous Approach (05/04/20) Performance of Urinary Filtration, Intermittent, Less than 6 Hours Per Day (07/12/20) Removal of Infusion Device from Upper Vein, Open Approach (05/04/20) Transfusion of Nonautologous Platelets into Peripheral Vein, Percutaneous Approach (05/04/20) Ultrasonography of Superior Vena Cava, Guidance (05/04/20) Labs on day of discharge: Laboratory Results - last 24 hr 06/19/21 06/19/21 06/19/21 15:33 15:33 15:36 WBC 5.9 RBC 3.31 L Hgb 10.8 L Hct 34.3 L MCV 103.6 H MCH 32.6 MCHC 31.5 RDW 14.5 Plt Count 60 L MPV 13.2 H Immature Gran % (Auto) 0.5 H Neut % (Auto) 71.6 Lymph % (Auto) 15.0 L [place] % (Auto) 7.8 Eos % (Auto) 4.8 H Baso % (Auto) 0.3 Lymph # (Auto) 0.9 L [place] # (Auto) 0.5 Eos # (Auto) 0.3 Baso # (Auto) 0.0 Abs Immat Gran (auto) 0.03 Absolute Neuts (auto) 4.2 Absolute Nucleated RBC 0.000 Nucleated RBC % (auto) 0.0 Sodium Potassium Chloride Carbon Dioxide Anion Gap BUN Creatinine Estim Creat Clear Calc Estimated GFR Random Glucose Lactic Acid 1.1 Calcium Total Bilirubin AST ALT Alkaline Phosphatase Troponin I High Sens B-Natriuretic Peptide Total Protein Albumin COVID-19 ([facility]ON) Negative COVID-19 Clin Com See Note 06/19/21 06/19/21 06/19/21 15:36 15:37 18:33 WBC RBC Hgb Hct MCV MCH MCHC RDW Plt Count MPV Immature Gran % (Auto) Neut % (Auto) Lymph % (Auto) [place] % (Auto) Eos % (Auto) Baso % (Auto) Lymph # (Auto) [place] # (Auto) Eos # (Auto) Baso # (Auto) Abs Immat Gran (auto) Absolute Neuts (auto) Absolute Nucleated RBC Nucleated RBC % (auto) Sodium 139 Potassium 3.4 Chloride 102 Carbon Dioxide 32 H Anion Gap 8 L BUN 12 D Creatinine 2.51 H Estim Creat Clear Calc 20.9 Estimated GFR 19 Random Glucose 216 H Lactic Acid Calcium 7.8 L Total Bilirubin 1.2 H AST 30 ALT 27 Alkaline Phosphatase 275 H D Troponin I High Sens 15.7 15.5 B-Natriuretic Peptide 1491 H Total Protein 6.6 Albumin 2.7 L COVID-19 ([facility]ON) COVID-19 Clin [facility] Discharge Plan Discharge Anticipated Discharge Date/Time: 06/20/21 09:27 Patient Disposition: Home, Self-Care Discharge Diagnosis: Fluid overload and shortness of breath Referrals: Jennifer Loya MD [Primary Care Provider] - 1 Week Discharge Medications: Continued atorvastatin 40 mg tablet 40 mg PO BEDTIME 0RF metoprolol tartrate 25 mg tablet 25 mg PO BID 0RF cholecalciferol (vitamin D3) 50 mcg (2,000 unit) tablet 50 mcg PO QAM 0RF fluoxetine 20 mg/5 mL (4 mg/mL) solution 5 ml PO DAILY 0RF clopidogrel 75 mg tablet 1 tab PO BEDTIME 0RF lorazepam 0.5 mg tablet 0.5 mg PO DAILY PRN (Reason: Anxiety) 0RF Anoro Ellipta 62.5-25 mcg/actuation blister with device 1 puff inhalation DAILY 0RF isosorbide mononitrate 30 mg tablet extended release 24 hr 30 mg PO DAILY Qty: 30 0RF albuterol sulfate [ProAir HFA] 90 mcg/actuation HFA aerosol inhaler 2 puff inhalation Q4-6H PRN (Reason: Wheezing) Qty: 8.5 0RF betamethasone dipropionate 0.05 % ointment 1 appl topical BID 0RF Rx Instructions: belly and right thigh midodrine 10 mg tablet See Rx Instructions .ROUTE .COMPLEX 0RF Rx Instructions: Take 1 tablet prior to dialysis, then takes 1 tablet while at dialysis quetiapine 25 mg tablet 50 mg PO BEDTIME 0RF bumetanide 2 mg tablet 2 mg PO SUMOWEFR 0RF Rx Instructions: Non dialysis days only albuterol sulfate 2.5 mg /3 mL (0.083 %) Solution For Nebulization 2.5 mg INHALATION Q4H PRN (Reason: Shortness Of Breath Or Wheezing) 0RF loratadine 10 mg Tablet 10 mg PO DAILY 0RF nystatin 100,000 unit/gram powder 1 appl topical BID PRN (Reason: Rash) 0RF Diet: advance to usual diet and low salt diet Activity on Discharge: As tolerated Stand Alone Forms: Patient Portal Discharge page Care Plan Goals: prevent rehospitalization from fluid overload Health Concerns: ESRD with frequent hospitalization from fluid overload, return to dialysis on yoko Plan of Treatment: to avoid excess salt and excess water Assessment: As above
[2021-06-20 11:46] VITALS: BP 146/63; PULSE 74; RESP 22; TEMP 37.1; O2SAT 100
--- NOTE | 2021-06-20 15:01 | MHC.CM.PN ---
Received notification that patient will be d/c'd home. Patient is from home with [employer] hours. T/w attempted to reach patient's daughter Paulina via telephone at [phone]. Phone not accepted calls at this time. Attempted to reach 2nd daughter/HCP, Keshia via telephone at [phone]. Left voicemail explaining IMM and that patient will be d/c'd home via BLS today. Copy of HCP verified to be on file. Left case management contact info. Woody DAVENPORT aware. [facility] booked for next available. Med nec with chart. Continue to mointor for d/c needs.
[2021-06-20 15:31] VITALS: BP 135/59; PULSE 79; RESP 16; TEMP 36.3; O2SAT 100
--- NOTE | 2021-06-21 13:00 | CONS_ITS ---
DATE OF SERVICE: 06/20/2021 REASON FOR CONSULTATION: Consult requested by Dr. Corrales to evaluate and help in management of patient with end-stage renal disease, who presented with shortness of breath. HISTORY OF PRESENT ILLNESS: The patient is a 70-year-old female with past medical history of ESRD on hemodialysis on Monday, , Monday; history of GERD; pulmonary hypertension; obstructive sleep apnea, who was discharged on 06/14/2021, after she was admitted for fluid overload when she required urgent dialysis. She was at dialysis yesterday and mid CA session, she had shortness of breath and feeling dizzy and sent to the ER. She was tachycardic and hypoxemic with oxygen saturation of 83%. She received oxygen with improvement of her oxygenation. COVID testing was negative. Chest x-ray showed pulmonary edema. Her BNP was elevated. Dr. Rodriguez was consulted overnight and the patient had hemodialysis overnight. She is feeling better the present time. There is no chest pain or shortness of breath. There is no dysuria. REVIEW OF SYSTEMS: As noted above. Other system reviewed negative. PAST MEDICAL HISTORY: History of anemia, history of bacteremia secondary to a staphylococcal, bipolar disorder, chronic diarrhea, constipation, COPD, type 2 diabetes mellitus, history of CHF, diastolic dysfunction. History of dislodged gastrostomy tube in the past, diverticulosis, ESRD, on hemodialysis, hyperlipidemia, hypertension, history of thrombocytopenia. PERSONAL AND SOCIAL HISTORY: The patient lives with her children. Does not drink alcohol. Does not smoke. Does not use drugs. ALLERGIES: PENICILLIN, TYLENOL, ASPIRIN, DIAZEPAM, METFORMIN. MEDICATIONS: At home include atorvastatin, cholecalciferol, metoprolol, Plavix, fluoxetine, lorazepam, Quetiapine, nystatin, albuterol, bumetanide 2 mg b.i.d., Loratadine, midodrine. PHYSICAL EXAMINATION: GENERAL: Patient is resting in the bed in the observation unit. No significant distress. VITAL SIGNS: Blood pressure was 110/89, pulse 75, afebrile. HEENT: Shows pupils equal bilaterally to light. No jugular venous distention is noted. Mucosa moist. There is no scleral icterus or conjunctival congestion. NECK: Supple. No thyromegaly is noted. CARDIOVASCULAR SYSTEM: S1, S2 without rub or murmur. RESPIRATORY SYSTEM: Air entry decreased in bases. No crepitation or rhonchi is noted. ABDOMEN: Obese, soft. Bowel sounds normal. EXTREMITIES: Showed no edema. There is no peripheral cyanosis or clubbing. NEURO: Essentially nonfocal. LABORATORY DATA: Labs done recently. Hemoglobin 10.8, hematocrit 34.3, platelets were 60. Sodium 139, potassium 3.4, chloride 102, CO2 32, BUN 12, creatinine 2.51. Albumin is 2.7. IMPRESSION: 1. 70-year-old female with end-stage renal disease on hemodialysis, admitted with volume overload/congestive heart failure. Impression is congestive heart failure. 2. History of obstructive sleep apnea. 3. Chronic obstructive pulmonary disease. 4. History of congestive heart failure. 5. Anemia of chronic disease. RECOMMENDATIONS: Patient presents yesterday with volume overload. She missed part of her dialysis treatment, and she was dialyzed overnight. She is, at the present time, feeling much improved without any shortness of breath. Medical team is planning to discharge the patient and I agree with the discharge. The patient can be discharged home. We will bring her back for dialysis again on Monday. She needs to go on a fluid restriction and a salt restriction. Thank you for allowing me to participate in medical management of the patient. MD ADINA Eddy/JORDANL / [phone]
== END 2021-06-20 16:00 | disposition home or self-care (01) | DRG 291 ==
LOC: HO.ED 17:42 → HO.EDOVER 18:17
PROVIDERS: Physician Assistant; Admitting Provider Internal Medicine; Emergency Provider Emergency Medicine; PCP Family Medicine; Visit Provider Internal Medicine
DX: I13.2 Hypertensive heart and chronic kidney disease with heart failure and with stage 5 chronic kidney disease, or end stage renal disease (principal); N18.6 End stage renal disease; J96.01 Acute respiratory failure with hypoxia; E11.22 Type 2 diabetes mellitus with diabetic chronic kidney disease; E66.9 Obesity, unspecified; K21.9 Gastro-esophageal reflux disease without esophagitis; D63.1 Anemia in chronic kidney disease; I25.10 Atherosclerotic heart disease of native coronary artery without angina pectoris; E78.5 Hyperlipidemia, unspecified; E87.70 Fluid overload, unspecified; G47.33 Obstructive sleep apnea (adult) (pediatric); I27.20 Pulmonary hypertension, unspecified; J44.9 Chronic obstructive pulmonary disease, unspecified; Z68.34 Body mass index [BMI] 34.0-34.9, adult; Z20.822 Contact with and (suspected) exposure to COVID-19; Z99.2 Dependence on renal dialysis; Z88.0 Allergy status to penicillin; Z88.6 Allergy status to analgesic agent; Z79.899 Other long term (current) drug therapy
CPT/HCPCS: 71045; 80053; 83605; 83880; 84484; 85025; 87040; 87635; 90935; 90999; 93005; 94640; 99285

== ENCOUNTER → 2021-06-28 12:05 | Outpatient (BNVA) | payer MEDICARE, MEDICAID, SELFPAY | PROVIDERS: PCP Family Medicine; Visit Provider Physician Assistant | DX: K52.9 Noninfective gastroenteritis and colitis, unspecified (principal) | CPT/HCPCS: Q3014 ==

== ENCOUNTER 2021-07-01 14:58 | Inpatient (IN) | payer MEDICARE, MEDICAID, SELFPAY ==
--- NOTE | ~2021-07-01 | XR_ITS ---
EXAMINATION: XR CHEST CLINICAL INFORMATION: Shortness of breath during dialysis COMPARISON: Chest radiograph 06/19/2021 along with a 2 view chest dating back to 06/30/2014 TECHNIQUE: Frontal view of the chest was obtained. FINDINGS: A left IJ hemodialysis catheter is present with its tip in good position in the right atrium. The heart is enlarged. Small pleural effusions are present. Diffuse airspace disease is present, but slightly improved on the right and slightly increased at the left lung base. Differential diagnosis would include CHF versus infection. Incidental note made once again of prior kyphoplasty lower thoracic spine. XR/XR chest 1V IMPRESSION: Diffuse airspace disease may represent CHF with edema plus minus some element of infection.
[2021-07-01 15:16] VITALS: BP 140/62; PULSE 100; PULSE 90; RESP 24; TEMP 36.9; O2SAT 100; O2SAT 84; BMI 36.3
--- NOTE | 2021-07-01 15:37 | ECG_ITS ---
Test Reason : sob Blood Pressure : / mmHG Vent. Rate : 094 BPM Atrial Rate : 094 BPM P-R Int : 142 ms QRS Dur : 084 ms QT Int : 350 ms P-R-T Axes : 048 056 -07 degrees QTc Int : 437 ms Sinus rhythm with Premature supraventricular complexes Abnormal QRS-T angle, consider primary T wave abnormality Abnormal ECG When compared with ECG of 19-JUN-2021 15:05, Premature supraventricular complexes are now Present Referred By: Kiley Ibrahim Electronically Signed By:ARTURO ALDANA MD
--- NOTE | 2021-07-01 15:42 | ED.SOB ---
HPI - SOB/Dyspnea General Chief Complaint: Dyspnea Stated Complaint: SOB FROM DIALYSYS (ALMOST FINISHED) Time Seen by Provider: 07/01/21 15:31 Source: patient and EMS Mode of arrival: EMS Limitations: no limitations History of Present Illness HPI Narrative: Patient comes to the emergency room complaining of shortness of breath. Patient was at dialysis today. He was almost completed but patient started complaining of shortness of breath and they had to stop, patient was brought to the emergency room. On arrival to the emergency room, patient states that she has no shortness of breath or chest pain. Patient uses 3 L of oxygen at home, patient is currently saturating 100% on her usual 3 L. Related Data Home Medications Medication Instructions Recorded Confirmed atorvastatin 40 mg tablet 40 mg PO BEDTIME 04/24/20 06/28/21 cholecalciferol (vitamin D3) 50 50 mcg PO QAM 04/24/20 06/28/21 mcg (2,000 unit) tablet metoprolol tartrate 25 mg tablet 25 mg PO BID 04/24/20 06/28/21 clopidogrel 75 mg tablet 1 tab PO BEDTIME 07/16/20 06/28/21 fluoxetine 20 mg/5 mL (4 mg/mL) 5 ml PO DAILY 07/16/20 06/28/21 oral solution lorazepam 0.5 mg tablet 0.5 mg PO DAILY PRN 07/16/20 06/28/21 umeclidinium 62.5 mcg-vilanterol 1 puff INHALATION DAILY 07/16/20 06/28/21 25 mcg/actuation powdr for inhalation (Anoro Ellipta) nystatin 100,000 unit/gram topical 1 appl TOPICAL BID PRN 01/05/21 06/28/21 powder albuterol sulfate 2.5 mg INHALATION Q4H PRN 06/12/21 06/28/21 betamethasone dipropionate 0.05 % 1 appl TOPICAL BID 06/12/21 06/28/21 topical ointment bumetanide 2 mg tablet 2 mg PO SUMOWEFR 06/12/21 06/28/21 loratadine 10 mg tablet 10 mg PO DAILY 06/12/21 06/28/21 midodrine 10 mg tablet See Rx Instructions .ROUTE .COMPLEX 06/12/21 06/28/21 quetiapine 25 mg tablet 50 mg PO BEDTIME 06/12/21 06/28/21 Previous Rx's Medication Instructions Recorded isosorbide mononitrate 30 mg 30 mg PO DAILY #30 tab 07/17/20 tablet,extended release 24 hr albuterol sulfate 90 mcg/actuation 2 puff INHALATION Q4-6H PRN #8.5 g 05/26/21 aerosol inhaler (ProAir HFA) Allergies Allergy/AdvReac Type Severity Reaction Status Date / Time Penicillins Allergy Severe Anaphylaxis, Verified 06/28/21 12:09 hives acetaminophen [From TYLENOL] Allergy Unknown Unknown Verified 06/28/21 12:09 aspirin [ASPIRIN] Allergy Unknown rash, Verified 06/28/21 12:09 stomach upset diazepam [From VALIUM] Allergy Unknown RESP Verified 06/28/21 12:09 FAILURE penicillin V Allergy Unknown edema Verified 06/28/21 12:09 metformin [Metformin] AdvReac Mild DIARRHEA Verified 06/28/21 12:09 Review of Systems Review of Systems: Constitutional : No Weight loss, No Fever, No Chills, No Night Sweats, No Fatigue, No Malaise ENT/Mouth : No Hearing loss, No Ear Pain, No Nasal Congestion, No Sinus Pain, No Hoarseness, No sore throat, No Rhinorrhea, No Swallowing Difficulty Eyes: No Eye Pain, No Swelling, No Redness, No Foreign Body, No Discharge, No Vision Changes Cardiovascular : No Chest Pain, No SOB, No Dyspnea on Exertion, No Orthopnea, No Edema, No Palpitations Respiratory : No Cough, No Sputum, No Wheezing, No Smoke Exposure, earlier complained of shortness of breath, now resolved. Gastrointestinal : No Nausea, No Vomiting, No Diarrhea, No Constipation, No abdominal Pain, No Hematochezia, No Melena Genitourinary : no irregular bleeding, No Dysuria, No Urinary Frequency, No Hematuria, No Urinary Incontinence, No Urgency, No Flank Pain, No Urinary Flow Changes, No Hesitancy Musculoskeletal : No joint pain, No Myalgias, No Joint Swelling Skin : No Skin Lesions, No rash Neuro : No Weakness, No Numbness, No Paresthesias, No Loss of Consciousness, No Dizziness, No Headache Psych : No Anxiety/Panic, No Depression, No SI/HI/AH/VH, No Social Issues, Heme/Lymph: No Bruising, No Bleeding,No Lymphadenopathy Endocrine : No Polyuria, No Polydipsia, No Temperature Intolerance PMFSH Past Medical History Medical History Anemia Anemia Bacteremia due to Staphylococcus Bipolar disorder Chronic diarrhea Constipation COPD (chronic obstructive pulmonary disease) Diabetes Diastolic CHF Diastolic dysfunction Dislodged gastrostomy tube Diverticulitis Dyspnea ESRD (end stage renal disease) ESRD (end stage renal disease) ESRF (end stage renal failure) Hyperlipidemia Hypertension Pneumonia Renal failure Thrombocytopenia Social History Social History Household Members: Children Household Members Other:: daughter Housing: Apartment Do you presently have visiting nurse or other home services: No Unable to assess alcohol history related to: Unknown Alcohol intake: never Patient Tobacco Use Status: Former Tobacco user Years Smoked: many years Use of substances other than those prescribed or required for medical reasons: No Advance Directives Date on File: 06/12/20 service: No Current occupational status: retired and disabled Physical Exam Vital Signs: Vital Signs: Last Vital Signs Temp 98.4 F 07/01/21 15:16 Pulse 100 07/01/21 15:16 Resp 24 H 07/01/21 15:16 BP 140/62 H 07/01/21 15:16 Pulse Ox 100 07/01/21 15:16 Oxygen Flow Rate 3 07/01/21 15:16 BMI result Body Mass Index 36.3 Course Course Course Narrative: At this time, patient states that she feels at baseline. No shortness of breath, chest pain. We will obtain basic blood work and chest x-ray. Discharge Plan Discharge Clinical Impression: Acute dyspnea Prescriptions: No Action atorvastatin 40 mg tablet 40 mg PO BEDTIME 0RF metoprolol tartrate 25 mg tablet 25 mg PO BID 0RF cholecalciferol (vitamin D3) 50 mcg (2,000 unit) tablet 50 mcg PO QAM 0RF fluoxetine 20 mg/5 mL (4 mg/mL) solution 5 ml PO DAILY 0RF clopidogrel 75 mg tablet 1 tab PO BEDTIME 0RF lorazepam 0.5 mg tablet 0.5 mg PO DAILY PRN (Reason: Anxiety) 0RF Anoro Ellipta 62.5-25 mcg/actuation blister with device 1 puff inhalation DAILY 0RF isosorbide mononitrate 30 mg tablet extended release 24 hr 30 mg PO DAILY Qty: 30 0RF albuterol sulfate [ProAir HFA] 90 mcg/actuation HFA aerosol inhaler 2 puff inhalation Q4-6H PRN (Reason: Wheezing) Qty: 8.5 0RF betamethasone dipropionate 0.05 % ointment 1 appl topical BID 0RF Rx Instructions: belly and right thigh midodrine 10 mg tablet See Rx Instructions .ROUTE .COMPLEX 0RF Rx Instructions: Take 1 tablet prior to dialysis, then takes 1 tablet while at dialysis quetiapine 25 mg tablet 50 mg PO BEDTIME 0RF bumetanide 2 mg tablet 2 mg PO SUMOWEFR 0RF Rx Instructions: Non dialysis days only albuterol sulfate 2.5 mg /3 mL (0.083 %) Solution For Nebulization 2.5 mg INHALATION Q4H PRN (Reason: Shortness Of Breath Or Wheezing) 0RF loratadine 10 mg Tablet 10 mg PO DAILY 0RF nystatin 100,000 unit/gram powder 1 appl topical BID PRN (Reason: Rash) 0RF
[2021-07-01 16:32] VITALS: BP 142/53; PULSE 95; RESP 20; TEMP 36.9; O2SAT 98
[2021-07-01 16:50] LABS: MANUAL DIFF FLAG NO
--- NOTE | 2021-07-01 16:50 | PC.NURSE ---
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
[2021-07-01 16:53] LABS: Basophils Percent Auto 0.4 % (0-2); Eosinophils Absolute Auto 0.1 X10*3/uL (0.0-0.4); Eosinophils Percent Auto 2.7 % (0-4); Hemoglobin 10.1 g/dl (12.0-16.0); Imm Gran Abs Auto 0.01 X10*3/uL (0.00-0.03); Imm Gran Pct Auto 0.2 % (0.0-0.4); Lymphocytes Absolute Auto 0.6 X10*3/uL (1.2-4.9); Lymphocytes Percent Auto 12.5 % (20-40); Mean Corpuscular HGB Conc 31.6 g/dl (31.0-35.0); Mean Corpuscular Hemoglobin 32.8 pg (27.0-33.0); Mean Corpuscular Volume 103.9 fL (80.0-98.0); Mean Platelet Volume 12.6 fL (9.4-12.3); Monocytes Absolute Auto 0.6 X10*3/uL (0.1-1.2); Monocytes Percent Auto 11.2 % (2-11); Neutrophils Absolute Auto 3.7 x10*3/uL (2.0-8.3); Red Blood Count 3.08 X10*6/uL (4.20-5.50); Red Cell Distribution Width 14.7 % (11.0-16.0); White Blood Count 5.1 X10*3/uL (4.8-10.8)
[2021-07-01 17:05] LABS: Platelet Count 45 X10*3/uL (160-400)
[2021-07-01 17:07] LABS: COVID-19 Test Negative (Negative); IDNOW Serial# 55D5AD1C
--- NOTE | 2021-07-01 17:10 | PC.NURSE ---
pt alert and oriented, skin appropriate for ethnicity, respirations labored, using abd muscles, breathing anywhere from 20-26,but sating 100% on 3l via nasal canual, pt basline is 3l at home, normal sinus
[2021-07-01 17:18] LABS: B Type Natriuretic Peptide 1235 pg/mL (<100); Blood Urea Nitrogen 12 mg/dL (9-16); Creatinine Clr Calc Pharmacy 24.6; Estimated Glomerular Filt Rate 22; Glucose Random 212 mg/dL (60-115); Troponin-I High Sensitivity 13.4 ng/L (<3.5-17.0)
[2021-07-01 17:26] LABS: Anion Gap 10 (12-20); Calcium 7.3 mg/dL (8.4-10.2); Carbon Dioxide 27 mmol/L (22-29); Chloride 103 mmol/L (96-108); Potassium 3.4 mmol/L (3.3-5.1); Sodium 137 mmol/L (135-145)
--- NOTE | 2021-07-01 17:47 | PC.NURSE ---
call out to nephro
--- NOTE | 2021-07-01 18:21 | PHA.MEDREC ---
Pharmacy Consult ? Medication Reconciliation Pharmacy has completed the medication reconciliation. Completed med rec based on pt list from dialysis, pharm claim history and recent dc summary
[2021-07-01 18:41] VITALS: BP 150/70; PULSE 84; RESP 20; TEMP 36.9; O2SAT 100
[2021-07-01 20:00] VITALS: BP 100/44; PULSE 82; RESP 20; TEMP 36.9; O2SAT 100
--- NOTE | 2021-07-01 21:17 | PM.IMHP ---
History of Present Illness Date of Service: 07/01/21 Chief Complaint: Shortness of breath 70-year-old female with a past medical history of hypertension, hyperlipidemia, ESRD on hemodialysis, diastolic CHF, diabetes, COPD, history of chronic diarrhea, bipolar disorder, anemia, history of staph bacteremia, thrombocytopenia presented to the hospital with a chief complaint of shortness of breath/dizziness. Patient reports that she was at dialysis today and while having dialysis she felt dizzy like room spinning and followed by she fell shortness of breath. Subsequently her hemodialysis postop presented to the ER for further evaluation. Denies any chest pain or palpitations. Currently reports her shortness of breath is better. Denies any fever chills cough. Denies any GI symptoms. Review of all other systems is negative except mentioned above ER course: Per ER team patient does not seem to be in distress; noted to have pulmonary congestion; discussed with Nephrology who planned for hemodialysis tonight. Admitted for further management. [facility] Medical History Anemia Anemia Bacteremia due to Staphylococcus Bipolar disorder Chronic diarrhea Constipation COPD (chronic obstructive pulmonary disease) Diabetes Diastolic CHF Diastolic dysfunction Dislodged gastrostomy tube Diverticulitis Dyspnea ESRD (end stage renal disease) ESRD (end stage renal disease) ESRF (end stage renal failure) Hyperlipidemia Hypertension Pneumonia Renal failure Thrombocytopenia Pertinent family history: Reviewed Social History Household Members: Children Household Members Other:: daughter Housing: Apartment Do you presently have visiting nurse or other home services: No Unable to assess alcohol history related to: Unknown Alcohol intake: never Patient Tobacco Use Status: Former Tobacco user Years Smoked: many years Use of substances other than those prescribed or required for medical reasons: No Advance Directives: Yes Advance Directives on File: Yes Advance Directives Date on File: 06/12/20 service: No Current occupational status: retired and disabled Meds Allergies Allergy/AdvReac Type Severity Reaction Status Date / Time Penicillins Allergy Severe Anaphylaxis, Verified 06/28/21 12:09 hives acetaminophen [From TYLENOL] Allergy Unknown Unknown Verified 06/28/21 12:09 aspirin [ASPIRIN] Allergy Unknown rash, Verified 06/28/21 12:09 stomach upset diazepam [From VALIUM] Allergy Unknown RESP Verified 06/28/21 12:09 FAILURE penicillin V Allergy Unknown edema Verified 06/28/21 12:09 metformin [Metformin] AdvReac Mild DIARRHEA Verified 06/28/21 12:09 Active Medications: Current Medications Albuterol/Ipratropium (Albuterol/Iprat 2.5/0.5mg 3 Ml Ampul.Neb) 3 ml INHALE RQ4H PRN PRN Reason: Shortness of Breath/Wheezing Meclizine HCl (Meclizine Hcl 25 Mg Tablet) 25 mg PO Q8H PRN PRN Reason: Vertigo Melatonin (Melatonin 3 Mg Tablet) 6 mg PO BEDTIME PRN PRN Reason: Insomnia Pharmacy Consult (Consult Rx Perform Med Rec) 1 each MISCELLANE ONCE PRN PRN Reason: Consult order Senna (Sennosides 8.6 Mg Tablet) 17.2 mg PO BEDTIME PRN PRN Reason: Constipation Sodium Chloride (0.9 % Sodium Chloride Flush 3 Ml Syringe) 3 ml IVFLUSH QSHIFT [facility] Home Medications Medication Instructions Recorded Confirmed Last Taken Type atorvastatin 40 mg tablet 40 mg PO BEDTIME 04/24/20 07/01/21 06/18/21 History cholecalciferol (vitamin D3) 50 50 mcg PO QAM 04/24/20 07/01/21 06/19/21 History mcg (2,000 unit) tablet metoprolol tartrate 25 mg tablet 25 mg PO BID 04/24/20 07/01/21 06/19/21 History clopidogrel 75 mg tablet 1 tab PO BEDTIME 07/16/20 07/01/21 06/18/21 History fluoxetine 20 mg/5 mL (4 mg/mL) 5 ml PO DAILY 07/16/20 07/01/21 06/19/21 History oral solution lorazepam 0.5 mg tablet 0.5 mg PO DAILY PRN 07/16/20 07/01/21 Unknown History umeclidinium 62.5 mcg-vilanterol 1 puff INHALATION DAILY 07/16/20 07/01/21 06/19/21 History 25 mcg/actuation powdr for inhalation (Anoro Ellipta) nystatin 100,000 unit/gram topical 1 appl TOPICAL BID PRN 01/05/21 07/01/21 Unknown History powder albuterol sulfate 2.5 mg INHALATION Q4H PRN 06/12/21 07/01/21 Unknown History bumetanide 2 mg tablet 2 mg PO SUMOWEFR@0800 06/12/21 07/01/21 06/18/21 History loratadine 10 mg tablet 10 mg PO DAILY 06/12/21 07/01/21 06/19/21 History midodrine 10 mg tablet See Rx Instructions .ROUTE .COMPLEX 06/12/21 07/01/21 06/17/21 History quetiapine 25 mg tablet 25 mg PO BEDTIME PRN 06/12/21 07/01/21 06/19/21 History Physical Exam Vital Signs and Narrative: Vital Signs: Last Vital Signs Temp 98.4 F 07/01/21 20:00 Pulse 82 07/01/21 20:00 Resp 20 07/01/21 20:00 BP 100/44 L 07/01/21 20:00 Pulse Ox 100 07/01/21 20:00 Oxygen Flow Rate 3 07/01/21 15:16 BMI result Body Mass Index 36.3 Gen: Appears be in no acute distress HEENT: NCAT, Moist mucosa. Pulmonary: Slightly diminished breath sounds at the bases CVS: Normal S1-S2 Abdomen: BS+, Soft, Nontender Extremities: Warm well perfused Neuro: Alert and awake. Results Labs CBC and Chem 7: 07/01/21 16:46 07/01/21 16:46 Labs: Laboratory Results - last 24 hr 07/01/21 07/01/21 07/01/21 16:46 16:46 16:46 MCV 103.9 H MCH 32.8 MCHC 31.6 RDW 14.7 Plt Count 45 L MPV 12.6 H Immature Gran % (Auto) 0.2 Neut % (Auto) 73.0 Lymph % (Auto) 12.5 L [place] % (Auto) 11.2 H Eos % (Auto) 2.7 Baso % (Auto) 0.4 Lymph # (Auto) 0.6 L [place] # (Auto) 0.6 Eos # (Auto) 0.1 Baso # (Auto) 0.0 Abs Immat Gran (auto) 0.01 Absolute Neuts (auto) 3.7 Absolute Nucleated RBC 0.000 Nucleated RBC % (auto) 0.0 Anion Gap 10 L Estim Creat Clear Calc 24.6 Estimated GFR 22 Random Glucose 212 H Calcium 7.3 L D B-Natriuretic Peptide 1235 H COVID-19 ([facility]) COVID-19 Clin Com 07/01/21 16:46 MCV MCH MCHC RDW Plt Count MPV Immature Gran % (Auto) Neut % (Auto) Lymph % (Auto) [place] % (Auto) Eos % (Auto) Baso % (Auto) Lymph # (Auto) [place] # (Auto) Eos # (Auto) Baso # (Auto) Abs Immat Gran (auto) Absolute Neuts (auto) Absolute Nucleated RBC Nucleated RBC % (auto) Anion Gap Estim Creat Clear Calc Estimated GFR Random Glucose Calcium B-Natriuretic Peptide COVID-19 ([facility]ON) Negative COVID-19 Clin Com See Note Imaging Radiologist's Impressions: Impressions Chest X-Ray 07/01/21 15:45 IMPRESSION: Diffuse airspace disease may represent CHF with edema plus minus some element of infection. Assessment and Plan (1) Pulmonary edema: Qualifiers: Chronicity: acute Qualified Code(s): J81.0 - Acute pulmonary edema Status: Acute (2) Acute dyspnea: Status: Acute Plan 70-year-old female with a past medical history of hypertension, hyperlipidemia, ESRD on hemodialysis, diastolic CHF, diabetes, COPD, history of chronic diarrhea, bipolar disorder, anemia, history of staph bacteremia, thrombocytopenia presented to the hospital with a chief complaint of shortness of breath/dizziness. Dizziness: Patient reports room spinning. Exam grossly nonfocal. Meclizine p.r.n. Shortness of breath: Likely in the setting of fluid overload. Nephrology was notified. Patient being scheduled for hemodialysis tonight. Chest x-ray showed congestion. Patient reports she is symptomatic improving. ESRD: Nephrology follow-up. Continue home midodrine on dialysis days CHF: Continue home Bumex, continue home Imdur, metoprolol Diabetes: Insulin sliding scale DVT prophylaxis: Subcu heparin Code status: DNR/DNI. Discussed in detail with the patient about code status. Patient mentioned that she clearly understands and wanted to be DNR/DNI. I also spoke to the patient's son christian who agreed. Quality Stroke Does the patient have a stroke diagnosis?: No VTE Prior VTE?: No VTE Risk Level:: Medical - moderate - high VTE Device Contraindication: Treatment Not Indicated VTE Drug Contraindication: N/A - Med Ordered
[2021-07-02 01:24] VITALS: BP 115/39; PULSE 81; RESP 21; O2SAT 100
--- NOTE | 2021-07-02 01:24 | PC.NURSE ---
Assumed care of pt s/p dialysis. Pt in NAD, attached to finance admin, vitals as charted. Provided w/ TV remote and juice per request. Denies further needs at this time. Call light at hand, educated to call for assistance.
[2021-07-02 06:11] VITALS: BP 123/42; PULSE 84; RESP 17; O2SAT 97
[2021-07-02 06:36] LABS: MANUAL DIFF FLAG NO
[2021-07-02 06:46] LABS: Basophils Percent Auto 0.6 % (0-2); Eosinophils Absolute Auto 0.2 X10*3/uL (0.0-0.4); Eosinophils Percent Auto 3.1 % (0-4); Hematocrit 34.2 % (37.0-47.0); Hemoglobin 10.6 g/dl (12.0-16.0); Imm Gran Abs Auto 0.01 X10*3/uL (0.00-0.03); Imm Gran Pct Auto 0.2 % (0.0-0.4); Lymphocytes Absolute Auto 1.2 X10*3/uL (1.2-4.9); Lymphocytes Percent Auto 22.6 % (20-40); Mean Corpuscular Hemoglobin 32.3 pg (27.0-33.0); Mean Corpuscular Volume 104.3 fL (80.0-98.0); Mean Platelet Volume 13.6 fL (9.4-12.3); Monocytes Absolute Auto 0.5 X10*3/uL (0.1-1.2); Monocytes Percent Auto 9.3 % (2-11); Neutrophils Absolute Auto 3.3 x10*3/uL (2.0-8.3); Neutrophils Percent Auto 64.2 % (45-73); Red Blood Count 3.28 X10*6/uL (4.20-5.50); Red Cell Distribution Width 14.2 % (11.0-16.0); White Blood Count 5.1 X10*3/uL (4.8-10.8)
[2021-07-02 06:48] LABS: Platelet Count 50 X10*3/uL (160-400)
[2021-07-02 07:09] LABS: Glucose, Whole Blood 124 mg/dL (60-115)
[2021-07-02 07:15] LABS: Magnesium 1.8 mg/dL (1.6-2.6)
[2021-07-02 07:17] LABS: Anion Gap 11 (12-20); Blood Urea Nitrogen 9 mg/dL (9-16); Calcium 8.1 mg/dL (8.4-10.2); Carbon Dioxide 23 mmol/L (22-29); Chloride 104 mmol/L (96-108); Creatinine Clr Calc Pharmacy 27.5; Estimated Glomerular Filt Rate 25; Glucose Random 136 mg/dL (60-115); Potassium 3.7 mmol/L (3.3-5.1); Sodium 134 mmol/L (135-145)
--- NOTE | 2021-07-02 07:23 | HO.PM.IMPN ---
Subjective Subjective Date of Service: 07/02/21 Interval History: Seen in f/u for shortness of breath and dizziness---had dialysis last night, no dizziness, Review of Systems sob dizziness Physical Exam Vital Signs: Vital Signs: Last Vital Signs Temp 98.4 F 07/01/21 20:00 Pulse 84 07/02/21 06:11 Resp 17 07/02/21 06:11 BP 123/42 L 07/02/21 06:11 Pulse Ox 97 07/02/21 06:11 Oxygen Flow Rate 3 07/01/21 15:16 BMI result Body Mass Index 36.3 Const: Other: General: AO X , no acute distress Resp: CTA bilateral CVS: S1,S2,RRR GI: +BS, NT, no distention Skin: No rash Neuro: motor grossly intact Psych: appropriate affect Objective Data Active Medications Albuterol/Ipratropium (Albuterol/Iprat 2.5/0.5mg 3 Ml Ampul.Neb) 3 ml INHALE RQ4H PRN PRN Reason: Shortness of Breath/Wheezing Atorvastatin Calcium (Atorvastatin Calcium 40 Mg Tablet) 40 mg PO BEDTIME OPAL Bumetanide (Bumetanide 1 Mg Tablet) 2 mg PO SUMOWEFR@0800 [facility]; Protocol Clopidogrel Bisulfate (Clopidogrel Bisulfate 75 Mg Tablet) 75 mg PO BEDTIME [facility] Dextrose (Dextrose 50 % 25 Gm/50 Ml Syringe) 25 gm IVPUSH Q15M PRN; Protocol PRN Reason: per Hypoglycemia Standing Ord. Fluoxetine HCl (Fluoxetine Hcl Oral Solution 20 Mg/5 Ml Solution) 20 mg PO DAILY [facility] Glucose (Glucose Gel 15 Gm Gel..Gram.) 15 gm PO Q15M PRN; Protocol PRN Reason: per Hypoglycemia Standing Ord. Insulin Human Lispro (Insulin Lispro 100 Unit/Ml 3 Ml Vial) 0 unit SUBCUT QIDACHS [facility]; Protocol Isosorbide Mononitrate (Isosorbide Mononitrate 30 Mg Tab.Er.24h) 30 mg PO DAILY [facility]; Protocol Loratadine (Loratadine 10 Mg Tablet) 10 mg PO DAILY [facility] Meclizine HCl (Meclizine Hcl 25 Mg Tablet) 25 mg PO Q8H PRN PRN Reason: Vertigo Melatonin (Melatonin 3 Mg Tablet) 6 mg PO BEDTIME PRN PRN Reason: Insomnia Metoprolol Tartrate (Metoprolol Tartrate 25 Mg Tablet) 25 mg PO BID [facility]; Protocol Midodrine (Midodrine Hcl 10 Mg Tablet) 10 mg PO DAILY PRN PRN Reason: DIALYSIS- SEE DIRECTIONS Non-Formulary Medication (Umeclidinium-Vilanterol [Anoro Ellipta]) 1 puff INHALE DAILY [facility] Nystatin (Nystatin Powder 15 Gm Bottle) 1 appl TOPICAL BID PRN; Protocol PRN Reason: Rash Pharmacy Consult (Consult Rx Perform Med Rec) 1 each MISCELLANE ONCE PRN PRN Reason: Consult order Quetiapine Fumarate (Quetiapine Fumarate 25 Mg Tablet) 25 mg PO BEDTIME PRN PRN Reason: Insomnia Senna (Sennosides 8.6 Mg Tablet) 17.2 mg PO BEDTIME PRN PRN Reason: Constipation Sodium Chloride (0.9 % Sodium Chloride Flush 3 Ml Syringe) 3 ml IVFLUSH QSHIFT [facility] Last Admin: 07/02/21 00:07 Dose: Not Given Documented by: PEDRO Non-Admin Reason: Med Not Available Vitamin D (Cholecalciferol (Vitamin D3) 25 Mcg Tablet) 50 mcg PO DAILY [facility] Labs CBC & Chem 7: 07/02/21 06:09 07/02/21 06:09 Labs: Laboratory Results - last 24 hr 07/01/21 07/01/21 07/01/21 16:46 16:46 16:46 MCV 103.9 H MCH 32.8 MCHC 31.6 RDW 14.7 Plt Count 45 L MPV 12.6 H Immature Gran % (Auto) 0.2 Neut % (Auto) 73.0 Lymph % (Auto) 12.5 L [place] % (Auto) 11.2 H Eos % (Auto) 2.7 Baso % (Auto) 0.4 Lymph # (Auto) 0.6 L [place] # (Auto) 0.6 Eos # (Auto) 0.1 Baso # (Auto) 0.0 Abs Immat Gran (auto) 0.01 Absolute Neuts (auto) 3.7 Absolute Nucleated RBC 0.000 Nucleated RBC % (auto) 0.0 Anion Gap 10 L Estim Creat Clear Calc 24.6 Estimated GFR 22 POC Glucose Random Glucose 212 H Calcium 7.3 L D Magnesium B-Natriuretic Peptide 1235 H COVID-19 ([facility]) COVID-19 Clin Com 07/01/21 07/02/21 07/02/21 16:46 06:09 06:09 MCV 104.3 H MCH 32.3 MCHC 31.0 RDW 14.2 Plt Count 50 L MPV 13.6 H Immature Gran % (Auto) 0.2 Neut % (Auto) 64.2 Lymph % (Auto) 22.6 [place] % (Auto) 9.3 Eos % (Auto) 3.1 Baso % (Auto) 0.6 Lymph # (Auto) 1.2 [place] # (Auto) 0.5 Eos # (Auto) 0.2 Baso # (Auto) 0.0 Abs Immat Gran (auto) 0.01 Absolute Neuts (auto) 3.3 Absolute Nucleated RBC 0.000 Nucleated RBC % (auto) 0.0 Anion Gap 11 L Estim Creat Clear Calc 27.5 Estimated GFR 25 POC Glucose Random Glucose 136 H Calcium 8.1 L D Magnesium B-Natriuretic Peptide COVID-19 ([facility]) Negative COVID-19 Clin Com See Note 07/02/21 07/02/21 06:09 07:04 MCV MCH MCHC RDW Plt Count MPV Immature Gran % (Auto) Neut % (Auto) Lymph % (Auto) [place] % (Auto) Eos % (Auto) Baso % (Auto) Lymph # (Auto) [place] # (Auto) Eos # (Auto) Baso # (Auto) Abs Immat Gran (auto) Absolute Neuts (auto) Absolute Nucleated RBC Nucleated RBC % (auto) Anion Gap Estim Creat Clear Calc Estimated GFR POC Glucose 124 H Random Glucose Calcium Magnesium 1.8 B-Natriuretic Peptide COVID-19 ([facility]) COVID-19 Clin Com Assessment and Plan (1) Acute dyspnea: Status: Acute (2) Pulmonary edema: Status: Acute Plan 70-year-old female with a past medical history of hypertension, hyperlipidemia, ESRD on hemodialysis, diastolic CHF, diabetes, COPD, history of chronic diarrhea, bipolar disorder, anemia, history of staph bacteremia, thrombocytopenia presented to the hospital with a chief complaint of shortness of breath/dizziness.? Dizziness/Vertigo--resolved -PRN Meclizine Shortness of breath likely from fluid overload, no PNA, normla WBC -resolved after Dialysis for fluid removal ESRD: HD TTS, -Continue home midodrine on dialysis days Chronic diastolic CHF: Continue home Bumex, continue home Imdur, metoprolol Diabetes:? Insulin sliding scale DVT prophylaxis:? Subcu heparin Code status:? DNR/DNI.? Discussed in detail with the patient about code status.? Patient mentioned that she clearly understands and wanted to be DNR/DNI.? I also spoke to the patient's son christian who agreed. Home today Quality Stroke Does the patient have a stroke diagnosis?: No VTE Prior VTE?: No VTE Risk Level:: Medical - moderate - high VTE Device Contraindication: Treatment Not Indicated VTE Drug Contraindication: N/A - Med Ordered
[2021-07-02] MEDS: FLUoxetine HCl Oral Solution 20 MG/5 ML SOLUTION PO (08:52)
[2021-07-02] MEDS: Cholecalciferol (Vitamin D3) 25 MCG TABLET 50 MCG PO (08:52)
[2021-07-02] MEDS: Loratadine 10 MG TABLET PO (08:52)
[2021-07-02] MEDS: 0.9 % Sodium Chloride Flush 3 ML SYRINGE IVFLUSH (08:52)
[2021-07-02] MEDS: Metoprolol Tartrate 25 MG TABLET PO (08:52)
[2021-07-02] MEDS: Isosorbide Mononitrate 30 MG TAB.ER.24H PO (08:52)
[2021-07-02 08:56] VITALS: BP 159/75; PULSE 86; RESP 22; O2SAT 99
[2021-07-02] MEDS: Bumetanide 1 MG TABLET 2 MG PO (08:58)
--- NOTE | 2021-07-02 10:19 | PM.DS ---
DS: Providers Provider Date of Service: 07/02/21 Date of admission: 07/01/21 21:12 Primary care physician: Jennifer Loya MD DS: Diagnosis Discharge Diagnosis (1) Acute dyspnea: Status: Acute (2) Pulmonary edema: Status: Acute DS: Summary Hospital Course Hospital Course: Essentially 70 with ESRD, chronic diastolic heart failure frequent hospitalizatio for fluid overload and typically required urgent dialysis and presented for the second time this month with shortness of breath and found to have fluid overload and underwent urgent dialysis with resolution of symptoms. She also had transient vertigo that has resolved. At this point she's back to her baseline and wants to go home. She is instructed to avoid salty food, limit fluid intake and attend dialysis as scheduled. Time Spent with Patient Time attestation: Total time spent providing and/or coordinating discharge services: Discharge coordination time: Greater than 30 minutes Quality: Stroke Does the patient have a stroke diagnosis?: No Physical Exam Vital Signs: Vital Signs: Last Vital Signs Temp 98.4 F 07/01/21 20:00 Pulse 86 07/02/21 08:56 Resp 22 H 07/02/21 08:56 BP 159/75 H 07/02/21 08:56 Pulse Ox 99 07/02/21 08:56 Oxygen Flow Rate 3 07/01/21 15:16 BMI result Body Mass Index 36.3 DS: Data Data Completed and Pending Completed studies during hospitalization [Text1]: Procedures Insertion of Infusion Device into Superior Vena Cava, Percutaneous Approach (05/04/20) Performance of Urinary Filtration, Intermittent, Less than 6 Hours Per Day (06/19/21) Removal of Infusion Device from Upper Vein, Open Approach (05/04/20) Transfusion of Nonautologous Platelets into Peripheral Vein, Percutaneous Approach (05/04/20) Ultrasonography of Superior Vena Cava, Guidance (05/04/20) Labs on day of discharge: Laboratory Results - last 24 hr 07/01/21 07/01/21 07/01/21 16:46 16:46 16:46 WBC 5.1 RBC 3.08 L Hgb 10.1 L Hct 32.0 L MCV 103.9 H MCH 32.8 MCHC 31.6 RDW 14.7 Plt Count 45 L MPV 12.6 H Immature Gran % (Auto) 0.2 Neut % (Auto) 73.0 Lymph % (Auto) 12.5 L [place] % (Auto) 11.2 H Eos % (Auto) 2.7 Baso % (Auto) 0.4 Lymph # (Auto) 0.6 L [place] # (Auto) 0.6 Eos # (Auto) 0.1 Baso # (Auto) 0.0 Abs Immat Gran (auto) 0.01 Absolute Neuts (auto) 3.7 Absolute Nucleated RBC 0.000 Nucleated RBC % (auto) 0.0 Sodium 137 Potassium 3.4 Chloride 103 Carbon Dioxide 27 Anion Gap 10 L BUN 12 Creatinine 2.19 H Estim Creat Clear Calc 24.6 Estimated GFR 22 POC Glucose Random Glucose 212 H Calcium 7.3 L D Magnesium Troponin I High Sens 13.4 B-Natriuretic Peptide 1235 H COVID-19 ([facility]) COVID-Epiphany Com 07/01/21 07/02/21 07/02/21 16:46 06:09 06:09 WBC 5.1 RBC 3.28 L Hgb 10.6 L Hct 34.2 L MCV 104.3 H MCH 32.3 MCHC 31.0 RDW 14.2 Plt Count 50 L MPV 13.6 H Immature Gran % (Auto) 0.2 Neut % (Auto) 64.2 Lymph % (Auto) 22.6 [place] % (Auto) 9.3 Eos % (Auto) 3.1 Baso % (Auto) 0.6 Lymph # (Auto) 1.2 [place] # (Auto) 0.5 Eos # (Auto) 0.2 Baso # (Auto) 0.0 Abs Immat Gran (auto) 0.01 Absolute Neuts (auto) 3.3 Absolute Nucleated RBC 0.000 Nucleated RBC % (auto) 0.0 Sodium 134 L Potassium 3.7 Chloride 104 Carbon Dioxide 23 Anion Gap 11 L BUN 9 Creatinine 1.96 H Estim Creat Clear Calc 27.5 Estimated GFR 25 POC Glucose Random Glucose 136 H Calcium 8.1 L D Magnesium Troponin I High Sens B-Natriuretic Peptide COVID-19 ([facility]) Negative COVIDPurePhoto See Note 07/02/21 07/02/21 06:09 07:04 WBC RBC Hgb Hct MCV MCH MCHC RDW Plt Count MPV Immature Gran % (Auto) Neut % (Auto) Lymph % (Auto) [place] % (Auto) Eos % (Auto) Baso % (Auto) Lymph # (Auto) [place] # (Auto) Eos # (Auto) Baso # (Auto) Abs Immat Gran (auto) Absolute Neuts (auto) Absolute Nucleated RBC Nucleated RBC % (auto) Sodium Potassium Chloride Carbon Dioxide Anion Gap BUN Creatinine Estim Creat Clear Calc Estimated GFR POC Glucose 124 H Random Glucose Calcium Magnesium 1.8 Troponin I High Sens B-Natriuretic Peptide COVID-19 ([facility]) COVID-19 Clin Com Discharge Plan Discharge Anticipated Discharge Date/Time: 07/02/21 11:09 Patient Disposition: Home, Self-Care Discharge Diagnosis: Pulmonary edema from fluid overload in dialysis patient Referrals: Jennifer Loya MD [Primary Care Provider] - 1 Week Discharge Medications: Continued atorvastatin 40 mg tablet 40 mg PO BEDTIME 0RF metoprolol tartrate 25 mg tablet 25 mg PO BID 0RF cholecalciferol (vitamin D3) 50 mcg (2,000 unit) tablet 50 mcg PO QAM 0RF fluoxetine 20 mg/5 mL (4 mg/mL) solution 5 ml PO DAILY 0RF clopidogrel 75 mg tablet 1 tab PO BEDTIME 0RF lorazepam 0.5 mg tablet 0.5 mg PO DAILY PRN (Reason: Anxiety) 0RF Anoro Ellipta 62.5-25 mcg/actuation blister with device 1 puff inhalation DAILY 0RF isosorbide mononitrate 30 mg tablet extended release 24 hr 30 mg PO DAILY Qty: 30 0RF albuterol sulfate [ProAir HFA] 90 mcg/actuation HFA aerosol inhaler 2 puff inhalation Q4-6H PRN (Reason: Wheezing) Qty: 8.5 0RF midodrine 10 mg tablet See Rx Instructions .ROUTE .COMPLEX 0RF Rx Instructions: Take 1 tablet prior to dialysis, then takes 1 tablet while at dialysis quetiapine 25 mg tablet 25 mg PO BEDTIME PRN (Reason: Insomnia) 0RF bumetanide 2 mg tablet 2 mg PO SUMOWEFR@0800 0RF Rx Instructions: Non dialysis days only albuterol sulfate 2.5 mg /3 mL (0.083 %) Solution For Nebulization 2.5 mg INHALATION Q4H PRN (Reason: Shortness Of Breath Or Wheezing) 0RF loratadine 10 mg Tablet 10 mg PO DAILY 0RF nystatin 100,000 unit/gram powder 1 appl topical BID PRN (Reason: Rash) 0RF Discharge Orders: Discharge Order (Routine); Ordered 07/02/21 Ordered By: Gaston Corrales Diet: advance to usual diet Activity on Discharge: As tolerated Stand Alone Forms: Patient Portal Discharge page Care Plan Goals: keep out of hospical for fluid overload Health Concerns: fluid overload in dialysis patient Plan of Treatment: Limit water intake, go to dialysis as schedule, avoid salty food Assessment: As above Discharge Date/Time: 07/02/21 15:36
--- NOTE | 2021-07-02 11:17 | PC.NURSE ---
Pt is Alert, oriented to person and place, no complaints of pain at this time, NSR on the monitor. Found with O2 off and sat's in the 70's, NC placed on pt at 3L, O2 sat 100%. Lungs diminsihed in the bases, Pt has dry skin, but intact with exception of small black scab like wound to L foot 2nd digit, no open area noted. Call schreiber within reach, medicated as per MAR orders. Will continue to monitor.
[2021-07-02 12:11] LABS: Glucose, Whole Blood 143 mg/dL (60-115)
--- NOTE | 2021-07-02 12:24 | MHC.CM.PN ---
Attempted to meet with patient in regards to discharge planning. Patient is currently confused. Patient was originally admitted as inpatient. However was changed to [facility]. Spoke with patient's daughter/HCP, Paulina via telephone at [phone]. Patient lives with daughter and granddaughter, is bedbound at baseline and receives 24 hour care of family. PCP Verified. HCP Verified to be on file. Patient will need BLS transport for d/c. Per Paulina, patient can leave at 3pm. [facility] booked. Med nec with chart. [place] Rn aware. Continue to monitor for d/c needs.
--- NOTE | 2021-07-02 12:28 | PC.NURSE ---
Pt using bed [place] at this time, no complaints of pain. [facility] ambulance booked for 1500, Una GAR, spoke to pt's daughter. Call schreiber within reach. Will continue to monitor.
[2021-07-02 13:28] VITALS: BP 153/40; PULSE 80; RESP 22; O2SAT 100
== END 2021-07-02 15:36 | disposition home or self-care (01) | DRG 640 ==
LOC: HO.ED 16:06 → HO.EDOVER 21:29
PROVIDERS: Emergency Medicine; Admitting Provider Hospitalist; Emergency Provider Emergency Medicine; PCP Family Medicine; Visit Provider Internal Medicine
DX: E87.70 Fluid overload, unspecified (principal); N18.6 End stage renal disease; I13.2 Hypertensive heart and chronic kidney disease with heart failure and with stage 5 chronic kidney disease, or end stage renal disease; I50.32 Chronic diastolic (congestive) heart failure; E11.22 Type 2 diabetes mellitus with diabetic chronic kidney disease; Z20.822 Contact with and (suspected) exposure to COVID-19; Z99.2 Dependence on renal dialysis; E78.5 Hyperlipidemia, unspecified; Z88.0 Allergy status to penicillin; Z88.6 Allergy status to analgesic agent; Z79.02 Long term (current) use of antithrombotics/antiplatelets; Z79.899 Other long term (current) drug therapy; Z66 Do not resuscitate
CPT/HCPCS: 36415; 71045; 80048; 82947; 83735; 83880; 84484; 85025; 87635; 90935; 90999; 93005; 99285

== ENCOUNTER 2021-07-13 14:16 | Inpatient (IN) | payer MEDICARE, MEDICAID, SELFPAY ==
--- NOTE | ~2021-07-13 | XR_ITS ---
EXAMINATION: XR CHEST CLINICAL INFORMATION: Dyspnea COMPARISON: Previous chest x-ray most recent 07/01/2021 TECHNIQUE: Frontal view of the chest was obtained. FINDINGS: The cardiac silhouette is enlarged but stable. The lung volumes are low. There is bilateral diffuse airspace disease. Differential would include pneumonia and pulmonary edema. This is similar to 07/01/2021 exam. There is no pleural effusion or pneumothorax. There is a left jugular dialysis catheter with tip projecting over the cavoatrial junction. There is old trauma to the left proximal humerus. There is scoliosis and degenerative changes of the spine. There are post vertebroplasty changes to the lower thoracic or upper lumbar spine. XR/XR chest 1V IMPRESSION: Enlarged cardiac silhouette. Low lung volumes. Bilateral diffuse airspace disease. Differential would include pneumonia and pulmonary edema.
[2021-07-13 14:42] VITALS: BP 117/47; BP 128/72; PULSE 87; PULSE 93; RESP 30; TEMP 36.6; O2SAT 80; O2SAT 98; BMI 40.1
--- NOTE | 2021-07-13 14:45 | ECG_ITS ---
Test Reason : DYSPNEA Blood Pressure : / mmHG Vent. Rate : 088 BPM Atrial Rate : 088 BPM P-R Int : 128 ms QRS Dur : 088 ms QT Int : 362 ms P-R-T Axes : 056 046 -05 degrees QTc Int : 438 ms Sinus rhythm with Premature supraventricular complexes Nonspecific ST and T wave abnormality Abnormal ECG When compared with ECG of 01-JUL-2021 16:26, No significant change was found Referred By: Trudy Vasquez Electronically Signed By:Bryon Rodriges
--- NOTE | 2021-07-13 14:58 | ED.GENADULT ---
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 Known history of end-stage renal disease on dialysis, wild patient receiving dialysis today (reportedly 3 hours of dialysis) patient had shortness of breath and became hypoxic of 80%. Dialysis was stopped and patient was transferred to the hospital. On arrival patient had O2 sat of 80% on room air that improved with 5 L of oxygen, patient is still complaining of shortness of breath, patient had a history of COPD and patient use supplemental oxygen at home 4 L. Patient otherwise declines chest pain, no abdominal pain, no fever, no chills. Related Data Home Medications Medication Instructions Recorded Confirmed atorvastatin 40 mg tablet 40 mg PO BEDTIME 04/24/20 07/01/21 cholecalciferol (vitamin D3) 50 50 mcg PO QAM 04/24/20 07/01/21 mcg (2,000 unit) tablet metoprolol tartrate 25 mg tablet 25 mg PO BID 04/24/20 07/01/21 clopidogrel 75 mg tablet 1 tab PO BEDTIME 07/16/20 07/01/21 fluoxetine 20 mg/5 mL (4 mg/mL) 5 ml PO DAILY 07/16/20 07/01/21 oral solution lorazepam 0.5 mg tablet 0.5 mg PO DAILY PRN 07/16/20 07/01/21 umeclidinium 62.5 mcg-vilanterol 1 puff INHALATION DAILY 07/16/20 07/01/21 25 mcg/actuation powdr for inhalation (Anoro Ellipta) nystatin 100,000 unit/gram topical 1 appl TOPICAL BID PRN 01/05/21 07/01/21 powder albuterol sulfate 2.5 mg INHALATION Q4H PRN 06/12/21 07/01/21 bumetanide 2 mg tablet 2 mg PO SUMOWEFR@0800 06/12/21 07/01/21 loratadine 10 mg tablet 10 mg PO DAILY 06/12/21 07/01/21 midodrine 10 mg tablet See Rx Instructions .ROUTE .COMPLEX 06/12/21 07/01/21 quetiapine 25 mg tablet 25 mg PO BEDTIME PRN 06/12/21 07/01/21 Previous Rx's Medication Instructions Recorded isosorbide mononitrate 30 mg 30 mg PO DAILY #30 tab 07/17/20 tablet,extended release 24 hr albuterol sulfate 90 mcg/actuation 2 puff INHALATION Q4-6H PRN #8.5 g 05/26/21 aerosol inhaler (ProAir HFA) Allergies Allergy/AdvReac Type Severity Reaction Status Date / Time Penicillins Allergy Severe Anaphylaxis, Verified 06/28/21 12:09 hives acetaminophen [From TYLENOL] Allergy Unknown Unknown Verified 06/28/21 12:09 aspirin [ASPIRIN] Allergy Unknown rash, Verified 06/28/21 12:09 stomach upset diazepam [From VALIUM] Allergy Unknown RESP Verified 06/28/21 12:09 FAILURE penicillin V Allergy Unknown edema Verified 06/28/21 12:09 metformin [Metformin] AdvReac Mild DIARRHEA Verified 06/28/21 12:09 Review of Systems Review of Systems: All other systems are reviewed and are negative Constitutional: Reports as per HPI and Reports no additional constitutional complaints Eyes: Reports as per HPI and Reports no additional eye complaints Reports system reviewed and no additional complaints, except as documented Cardiovascular: Reports as per HPI and Reports no additional cardiovascular complaints Respiratory: Reports as per HPI and Reports no additional respiratory complaints Gastrointestinal: Reports as per HPI and Reports no additional gastrointestinal complaints Genitourinary: Reports no additional female genitourinary complaints Musculoskeletal: Reports no additional musculoskeletal complaints Skin/Breast: Reports system reviewed and no additional complaints, except as docu Psychiatric: Reports no additional psychiatric complaints Endocrine: Reports no additional endocrine complaints Hematologic/Lymphatic: Reports no additional hematologic/lymphatic complaints Allergic/Immunologic: Reports no additional allergic/immunologic complaints Reports system reviewed and no additional complaints, except as documented and Reports Abnormal speech present [facility] Past Medical History Medical History Anemia Anemia Bacteremia due to Staphylococcus Bipolar disorder Chronic diarrhea Constipation COPD (chronic obstructive pulmonary disease) Diabetes Diastolic CHF Diastolic dysfunction Dislodged gastrostomy tube Diverticulitis Dyspnea ESRD (end stage renal disease) ESRF (end stage renal failure) Hyperlipidemia Hypertension Pneumonia Renal failure Thrombocytopenia Social History Social History Household Members: Children Household Members Other:: daughter Housing: Apartment Do you presently have visiting nurse or other home services: No Unable to assess alcohol history related to: Unknown Alcohol intake: never Patient Tobacco Use Status: Former Tobacco user Years Smoked: many years Advance Directives: Yes Advance Directives on File: Yes Advance Directives Date on File: 06/12/20 service: No Current occupational status: retired and disabled Physical Exam ED Vital Signs: Vital Signs - 24 hr 07/13/21 14:42 07/13/21 15:23 07/13/21 15:40 Temperature 97.8 F 97.7 F Pulse Rate 93 89 85 Respiratory Rate 30 H 31 H 29 H Blood Pressure 117/47 L 137/56 L Pulse Oximetry 80 L 100 BMI result Body Mass Index 40.1 Vital signs have been reviewed as appeared to be correct. Blood pressure normal. Heart rate normal. Respiration rate elevated. Temperature normal. Oxygen saturation normal. Appearance: Alert. Oriented X3. No acute distress. Head: Normal external exam. Normocephalic. Atraumatic. No Muniz signs noted. No raccoon eyes noted Eyes: PERRLA. EOMI. Conjunctiva and sclera normal. Eyelids normal. ENT: TM's Normal. Pharynx normal. Uvula midline. Moist mucous membranes. No trismus noted. No drooling noted. No muffled voice noted. Neck: Normal inspection. Neck supple. FROM. No adenopathy. Thyroid Normal. No meningeal signs. No neck mass noted. CVS: Normal heart rate and rhythm. Heart sound normal. No murmurs noted. Pulses normal throughout. Respiratory: No respiratory distress. Painless inspiration. Bilateral diffuse expiratory wheezing with prolonged expiration. No accessory muscle usage noted or decreased air movement noted. Abdomen: Soft and nontender. Bowel sounds normal in all 4 quadrants. No distention noted. No organomegaly noted. No visible injury noted. Back: No CVA tenderness. Full range of motion noted. Skin: Skin warm and dry. Normal skin color. Normal skin turgor. No rashes/lesions/lacerations noted. Extremities: No lower extremity edema. Extremities exhibit normal range of motion. Extremities nontender. Neuro: Oriented X 3. Cranial nerve exam: II-XII are grossly intact No motor deficit. No sensory deficit. Reflexes normal. Course Course Course Narrative: Assessment and plan. 70-year-old female end-stage renal disease came in from dialysis after having shortness of breath, patient had multiple similar presentation in the past, patient with history of COPD usually patient symptoms improved with bronchodilator and steroids. Patient just finished 3 hours of hemodialysis likely still volume overload, patient is improving with bronchodilator and IV steroids. Will consider nitro paste on his chest wall. admit the patient for COPD exacerbation and possible read dialysis if patient is not improving by tomorrow. Medical Decision Making Medical Records Medical records reviewed: Yes I reviewed the patient's medical records. Lab Data Lab results reviewed: Yes I reviewed the patient's lab results. Result diagrams: 07/13/21 18:16 07/13/21 17:55 Labs: Lab Results 07/13/21 07/13/21 07/13/21 Range/Units 17:55 17:55 18:16 WBC 6.0 (4.8-10.8) X10*3/uL RBC 3.18 L (4.20-5.50) X10*6/uL Hgb 10.2 L (12.0-16.0) g/dl Hct 33.1 L (37.0-47.0) % MCV 104.1 H (80.0-98.0) fL MCH 32.1 (27.0-33.0) pg MCHC 30.8 L (31.0-35.0) g/dl RDW 14.4 (11.0-16.0) % Plt Count 49 L (160-400) X10*3/uL MPV 14.0 H (9.4-12.3) fL Immature Gran % (Auto) 0.3 (0.0-0.4) % Neut % (Auto) 74.8 H (45-73) % Lymph % (Auto) 13.5 L (20-40) % [place] % (Auto) 8.4 (2-11) % Eos % (Auto) 2.5 (0-4) % Baso % (Auto) 0.5 (0-2) % Lymph # (Auto) 0.8 L (1.2-4.9) X10*3/uL [place] # (Auto) 0.5 (0.1-1.2) X10*3/uL Eos # (Auto) 0.2 (0.0-0.4) X10*3/uL Baso # (Auto) 0.0 (0.0-0.2) X10*3/uL Abs Immat Gran (auto) 0.02 (0.00-0.03) X10*3/uL Absolute Neuts (auto) 4.5 (2.0-8.3) x10*3/uL Absolute Nucleated RBC 0.000 (0.0-0.012) X10*3/uL Nucleated RBC % (auto) 0.0 (0.0-0.2) /100WBC Smear Tech's Comments VERIFIED PT (9.9-13.0) SEC INR (0.9-1.1) Sodium 137 (135-145) mmol/L Potassium 3.3 (3.3-5.1) mmol/L Chloride 102 (96-108) mmol/L Carbon Dioxide 27 (22-29) mmol/L Anion Gap 11 L (12-20) BUN 20 H D (9-16) mg/dL Creatinine 4.26 H* (0.5-1.4) mg/dL Estim Creat Clear Calc 11.8 Estimated GFR 10 Random Glucose 150 H (60-115) mg/dL Calcium 7.4 L D (8.4-10.2) mg/dL Troponin I High Sens 16.8 (<3.5-17.0) ng/L B-Natriuretic Peptide (<100) pg/mL 07/13/21 07/13/21 Range/Units 18:16 18:16 WBC (4.8-10.8) X10*3/uL RBC (4.20-5.50) X10*6/uL Hgb (12.0-16.0) g/dl Hct (37.0-47.0) % MCV (80.0-98.0) fL MCH (27.0-33.0) pg MCHC (31.0-35.0) g/dl RDW (11.0-16.0) % Plt Count (160-400) X10*3/uL MPV (9.4-12.3) fL Immature Gran % (Auto) (0.0-0.4) % Neut % (Auto) (45-73) % Lymph % (Auto) (20-40) % [place] % (Auto) (2-11) % Eos % (Auto) (0-4) % Baso % (Auto) (0-2) % Lymph # (Auto) (1.2-4.9) X10*3/uL [place] # (Auto) (0.1-1.2) X10*3/uL Eos # (Auto) (0.0-0.4) X10*3/uL Baso # (Auto) (0.0-0.2) X10*3/uL Abs Immat Gran (auto) (0.00-0.03) X10*3/uL Absolute Neuts (auto) (2.0-8.3) x10*3/uL Absolute Nucleated RBC (0.0-0.012) X10*3/uL Nucleated RBC % (auto) (0.0-0.2) /100WBC Smear Tech's Comments PT 13.1 H (9.9-13.0) SEC INR 1.2 H (0.9-1.1) Sodium (135-145) mmol/L Potassium (3.3-5.1) mmol/L Chloride (96-108) mmol/L Carbon Dioxide (22-29) mmol/L Anion Gap (12-20) BUN (9-16) mg/dL Creatinine (0.5-1.4) mg/dL Estim Creat Clear Calc Estimated GFR Random Glucose (60-115) mg/dL Calcium (8.4-10.2) mg/dL Troponin I High Sens (<3.5-17.0) ng/L B-Natriuretic Peptide 1647 H (<100) pg/mL Imaging Data Chest x-ray: Attestation: I personally reviewed and interpreted this imaging study as follows: Radiologist's impression: Enlarged cardiac silhouette. Low lung volumes. Bilateral diffuse airspace disease. Differential would include pneumonia and pulmonary edema. Discharge Plan Discharge Patient Disposition: Admitted As Inpatient Prescriptions: No Action atorvastatin 40 mg tablet 40 mg PO BEDTIME 0RF metoprolol tartrate 25 mg tablet 25 mg PO BID 0RF cholecalciferol (vitamin D3) 50 mcg (2,000 unit) tablet 50 mcg PO QAM 0RF fluoxetine 20 mg/5 mL (4 mg/mL) solution 5 ml PO DAILY 0RF clopidogrel 75 mg tablet 1 tab PO BEDTIME 0RF lorazepam 0.5 mg tablet 0.5 mg PO DAILY PRN (Reason: Anxiety) 0RF Anoro Ellipta 62.5-25 mcg/actuation blister with device 1 puff inhalation DAILY 0RF isosorbide mononitrate 30 mg tablet extended release 24 hr 30 mg PO DAILY Qty: 30 0RF albuterol sulfate [ProAir HFA] 90 mcg/actuation HFA aerosol inhaler 2 puff inhalation Q4-6H PRN (Reason: Wheezing) Qty: 8.5 0RF midodrine 10 mg tablet See Rx Instructions .ROUTE .COMPLEX 0RF Rx Instructions: Take 1 tablet prior to dialysis, then takes 1 tablet while at dialysis quetiapine 25 mg tablet 25 mg PO BEDTIME PRN (Reason: Insomnia) 0RF bumetanide 2 mg tablet 2 mg PO SUMOWEFR@0800 0RF Rx Instructions: Non dialysis days only albuterol sulfate 2.5 mg /3 mL (0.083 %) Solution For Nebulization 2.5 mg INHALATION Q4H PRN (Reason: Shortness Of Breath Or Wheezing) 0RF loratadine 10 mg Tablet 10 mg PO DAILY 0RF nystatin 100,000 unit/gram powder 1 appl topical BID PRN (Reason: Rash) 0RF
[2021-07-13] MEDS: Albuterol/Iprat 2.5/0.5MG 3 ML AMPUL.NEB INHALE (15:20)
[2021-07-13] MEDS: Albuterol Sulfate (0.083%) 2.5 MG/3 ML VIAL.NEB 5 MG INHALE (15:20)
[2021-07-13 15:23] VITALS: PULSE 89; RESP 31; O2SAT 100
[2021-07-13 15:40] VITALS: BP 137/56; PULSE 85; RESP 29; TEMP 36.5; O2SAT 100
[2021-07-13] MEDS: methylPREDNISolone Sod Succ 125 MG/2 ML VIAL IVPUSH (17:16)
[2021-07-13 18:23] LABS: Troponin-I High Sensitivity 16.8 ng/L (<3.5-17.0)
[2021-07-13 18:26] LABS: INTERNATIONAL NORM RATIO 1.2 (0.9-1.1); Prothrombin Time 13.1 SEC (9.9-13.0)
[2021-07-13 18:39] LABS: Eosinophils Absolute Auto 0.2 X10*3/uL (0.0-0.4); Eosinophils Percent Auto 2.5 % (0-4); Imm Gran Abs Auto 0.02 X10*3/uL (0.00-0.03); Imm Gran Pct Auto 0.3 % (0.0-0.4); MANUAL DIFF FLAG SCAN; Mean Corpuscular Volume 104.1 fL (80.0-98.0); SCAN SMEAR FLAG 1
[2021-07-13 18:40] LABS: Anion Gap 11 (12-20); Blood Urea Nitrogen 20 mg/dL (9-16); Calcium 7.4 mg/dL (8.4-10.2); Carbon Dioxide 27 mmol/L (22-29); Chloride 102 mmol/L (96-108); Creatinine Clr Calc Pharmacy 11.8; Estimated Glomerular Filt Rate 10; Glucose Random 150 mg/dL (60-115); Potassium 3.3 mmol/L (3.3-5.1); Sodium 137 mmol/L (135-145)
[2021-07-13 18:41] LABS: Basophils Percent Auto 0.5 % (0-2); Hematocrit 33.1 % (37.0-47.0); Hemoglobin 10.2 g/dl (12.0-16.0); Lymphocytes Absolute Auto 0.8 X10*3/uL (1.2-4.9); Lymphocytes Percent Auto 13.5 % (20-40); Mean Corpuscular HGB Conc 30.8 g/dl (31.0-35.0); Mean Corpuscular Hemoglobin 32.1 pg (27.0-33.0); Monocytes Absolute Auto 0.5 X10*3/uL (0.1-1.2); Monocytes Percent Auto 8.4 % (2-11); Neutrophils Absolute Auto 4.5 x10*3/uL (2.0-8.3); Neutrophils Percent Auto 74.8 % (45-73); Red Blood Count 3.18 X10*6/uL (4.20-5.50); Red Cell Distribution Width 14.4 % (11.0-16.0)
[2021-07-13 18:45] LABS: B Type Natriuretic Peptide 1647 pg/mL (<100); PLT ABN DIST 1
[2021-07-13 19:00] LABS: Platelet Count 49 X10*3/uL (160-400); SLIDE REVIEW VERIFIED
--- NOTE | 2021-07-13 19:19 | PM.IMHP ---
History of Present Illness Date of Service: 07/13/21 Chief Complaint: Hypoxia 70-year-old female with a past medical history of hypertension, hyperlipidemia, ESRD on hemodialysis, diastolic CHF, diabetes, COPD, history of chronic diarrhea, bipolar disorder, anemia, history of staph bacteremia, thrombocytopenia presented to the hospital with a chief complaint of shortness of breath/dizziness.? patient reported that while having dialysis she felt dizzy; also had an episode of substernal chest discomfort; dialysis team noted the patient was hypoxic; subsequently sent to the ER for further evaluation. At the time of entry patient reported chest pain improved. Also mentioned that her dizziness is also resolved. patient reported that her chest discomfort was similar to her acid reflux. Breathing comfortably on supplemental oxygen. Saturating well. Denies any fevers or cough. Denies any GI symptoms. Review of all other systems is negative except mentioned above ER course: Per ER team patient on presentation noted to be saturating 80%; placed on supplemental oxygen; given nebulizer treatments; [facility] Medical History Anemia Anemia Bacteremia due to Staphylococcus Bipolar disorder Chronic diarrhea Constipation COPD (chronic obstructive pulmonary disease) Diabetes Diastolic CHF Diastolic dysfunction Dislodged gastrostomy tube Diverticulitis Dyspnea ESRD (end stage renal disease) ESRF (end stage renal failure) Hyperlipidemia Hypertension Pneumonia Renal failure Thrombocytopenia Social History Household Members: Children Household Members Other:: daughter Housing: Apartment Do you presently have visiting nurse or other home services: No Unable to assess alcohol history related to: Unknown Alcohol intake: never Patient Tobacco Use Status: Former Tobacco user Years Smoked: many years Advance Directives Date on File: 06/12/20 service: No Current occupational status: retired and disabled Meds Allergies Allergy/AdvReac Type Severity Reaction Status Date / Time Penicillins Allergy Severe Anaphylaxis, Verified 06/28/21 12:09 hives acetaminophen [From TYLENOL] Allergy Unknown Unknown Verified 06/28/21 12:09 aspirin [ASPIRIN] Allergy Unknown rash, Verified 06/28/21 12:09 stomach upset diazepam [From VALIUM] Allergy Unknown RESP Verified 06/28/21 12:09 FAILURE penicillin V Allergy Unknown edema Verified 06/28/21 12:09 metformin [Metformin] AdvReac Mild DIARRHEA Verified 06/28/21 12:09 Home Medications Medication Instructions Recorded Confirmed Last Taken Type atorvastatin 40 mg tablet 40 mg PO BEDTIME 04/24/20 07/13/21 06/18/21 History cholecalciferol (vitamin D3) 50 50 mcg PO DAILY 04/24/20 07/13/21 06/19/21 History mcg (2,000 unit) tablet metoprolol tartrate 25 mg tablet 25 mg PO BID 04/24/20 07/13/21 06/19/21 History clopidogrel 75 mg tablet 1 tab PO BEDTIME 07/16/20 07/13/21 06/18/21 History fluoxetine 20 mg/5 mL (4 mg/mL) 5 ml PO DAILY 07/16/20 07/13/21 06/19/21 History oral solution lorazepam 0.5 mg tablet 0.5 mg PO DAILY PRN 07/16/20 07/13/21 Unknown History umeclidinium 62.5 mcg-vilanterol 1 puff INHALATION DAILY 07/16/20 07/13/21 06/19/21 History 25 mcg/actuation powdr for inhalation (Anoro Ellipta) nystatin 100,000 unit/gram topical 1 appl TOPICAL BID PRN 01/05/21 07/13/21 Unknown History powder albuterol sulfate 2.5 mg INHALATION Q4H PRN 06/12/21 07/13/21 Unknown History loratadine 10 mg tablet 10 mg PO DAILY PRN 06/12/21 07/13/21 06/19/21 History midodrine 10 mg tablet See Rx Instructions .ROUTE .COMPLEX 06/12/21 07/13/21 06/17/21 History loperamide 1 mg/7.5 mL oral liquid 1 mg PO Q3D@1000 07/13/21 07/13/21 07/12/21 History quetiapine 25 mg tablet 50 mg PO BEDTIME 07/13/21 07/13/21 Unknown History Physical Exam Vital Signs and Narrative: Vital Signs: Last Vital Signs Temp 97.7 F 07/13/21 15:40 Pulse 85 07/13/21 15:40 Resp 29 H 07/13/21 15:40 BP 137/56 L 07/13/21 15:40 Pulse Ox 100 07/13/21 15:40 BMI result Body Mass Index 40.1 Gen: Appears be in no acute distress . On supplemental oxygen. Breathing comfortably. Speaks in full sentences. HEENT: NCAT, Moist mucosa. Pulmonary: Vesicular breath sounds, fair air entry CVS: Normal S1-S2 Abdomen: BS+, Soft, Nontender Extremities: Warm well perfused Neuro: Alert and awake. Results Labs CBC and Chem 7: 07/15/21 05:38 07/15/21 05:38 Labs: Laboratory Results - last 24 hr 07/13/21 07/13/21 07/13/21 17:55 18:16 18:16 MCV 104.1 H MCH 32.1 MCHC 30.8 L RDW 14.4 Plt Count 49 L MPV 14.0 H Immature Gran % (Auto) 0.3 Neut % (Auto) 74.8 H Lymph % (Auto) 13.5 L [place] % (Auto) 8.4 Eos % (Auto) 2.5 Baso % (Auto) 0.5 Lymph # (Auto) 0.8 L [place] # (Auto) 0.5 Eos # (Auto) 0.2 Baso # (Auto) 0.0 Abs Immat Gran (auto) 0.02 Absolute Neuts (auto) 4.5 Absolute Nucleated RBC 0.000 Nucleated RBC % (auto) 0.0 Smear Tech's Comments VERIFIED PT 13.1 H INR 1.2 H Anion Gap 11 L Estim Creat Clear Calc 11.8 Estimated GFR 10 Random Glucose 150 H Calcium 7.4 L D B-Natriuretic Peptide 07/13/21 18:16 MCV MCH MCHC RDW Plt Count MPV Immature Gran % (Auto) Neut % (Auto) Lymph % (Auto) [place] % (Auto) Eos % (Auto) Baso % (Auto) Lymph # (Auto) [place] # (Auto) Eos # (Auto) Baso # (Auto) Abs Immat Gran (auto) Absolute Neuts (auto) Absolute Nucleated RBC Nucleated RBC % (auto) Smear Tech's Comments PT INR Anion Gap Estim Creat Clear Calc Estimated GFR Random Glucose Calcium B-Natriuretic Peptide 1647 H Imaging Radiologist's Impressions: Impressions Chest X-Ray 07/13/21 15:00 IMPRESSION: Enlarged cardiac silhouette. Low lung volumes. Bilateral diffuse airspace disease. Differential would include pneumonia and pulmonary edema. Assessment and Plan Plan 70-year-old female with a past medical history of hypertension, hyperlipidemia, ESRD on hemodialysis, diastolic CHF, diabetes, COPD, history of chronic diarrhea, bipolar disorder, anemia, history of staph bacteremia, thrombocytopenia presented to the hospital with a chief complaint of shortness of breath/dizziness/ Chest pain/ hypoxia. Hypoxia: Likely in the setting of COPD /poor effort. Currently improved.Continue supplemental oxygen. DuoNebs p.r.n.. Lung sounds clear. Dizziness: Currently resolved. Fall precautions. ESRD: Nephrology follow-up.? Continue home midodrine on dialysis days CHF: Continue home Bumex, continue home Imdur, metoprolol Diabetes:? Insulin sliding scale Thrombocytopenia: chronic. No active signs of bleeding. DVT prophylaxis: SCD Code status: DNR/ DNI. Off note: Patient had similar presentation in the past. improved significantly after hemodialysis. Quality Stroke Does the patient have a stroke diagnosis?: No VTE Prior VTE?: No VTE Risk Level:: Medical - moderate - high VTE Device Contraindication: Treatment Not Indicated VTE Drug Contraindication: N/A - Med Ordered
--- NOTE | 2021-07-13 20:23 | PHA.MEDREC ---
MED REC COMPLETE, NO ISSUES Pharmacy Consult ? Medication Reconciliation Pharmacy has completed the medication reconciliation.
[2021-07-13 20:29] LABS: COVID-19 Test Negative (Negative)
--- NOTE | 2021-07-13 21:00 | PC.NURSE ---
Assumed care of pt Pt resting on stretcher Denies any pain Ethiopian speaking 97% on 3L NC Will continue to monitor
[2021-07-13 21:11] VITALS: BP 133/52; PULSE 88
[2021-07-13] MEDS: Nitroglycerin 2 % Oint 1 GM Packet 0.5 INCH TRANSDERMA (21:11)
[2021-07-13 22:26] VITALS: BP 156/59; PULSE 87; RESP 22; TEMP 36.4; O2SAT 99
[2021-07-13 22:52] LABS: Estimated Average Glucose 148 mg/dL; Hemoglobin A1c % 6.8 %
[2021-07-14 07:11] LABS: MANUAL DIFF FLAG NO
[2021-07-14 07:25] LABS: Hematocrit 33.1 % (37.0-47.0); Hemoglobin 10.5 g/dl (12.0-16.0); Imm Gran Abs Auto 0.01 X10*3/uL (0.00-0.03); Imm Gran Pct Auto 0.4 % (0.0-0.4); Lymphocytes Absolute Auto 0.4 X10*3/uL (1.2-4.9); Lymphocytes Percent Auto 14.2 % (20-40); Mean Corpuscular HGB Conc 31.7 g/dl (31.0-35.0); Mean Corpuscular Hemoglobin 32.5 pg (27.0-33.0); Mean Corpuscular Volume 102.5 fL (80.0-98.0); Mean Platelet Volume 13.5 fL (9.4-12.3); Monocytes Absolute Auto 0.1 X10*3/uL (0.1-1.2); Monocytes Percent Auto 2.1 % (2-11); Neutrophils Absolute Auto 2.4 x10*3/uL (2.0-8.3); Neutrophils Percent Auto 83.3 % (45-73); Red Blood Count 3.23 X10*6/uL (4.20-5.50); Red Cell Distribution Width 14.1 % (11.0-16.0); White Blood Count 2.8 X10*3/uL (4.8-10.8)
[2021-07-14 07:26] LABS: Platelet Count 52 X10*3/uL (160-400)
[2021-07-14 08:01] LABS: Anion Gap 12 (12-20); Blood Urea Nitrogen 31 mg/dL (9-16); Calcium 7.4 mg/dL (8.4-10.2); Carbon Dioxide 27 mmol/L (22-29); Chloride 103 mmol/L (96-108); Creatinine Clr Calc Pharmacy 9.6; Estimated Glomerular Filt Rate 8; Glucose Random 414 mg/dL (60-115); Potassium 3.5 mmol/L (3.3-5.1); Sodium 138 mmol/L (135-145)
[2021-07-14 08:05] VITALS: BP 143/66; PULSE 76; RESP 25; TEMP 36.3; O2SAT 96
[2021-07-14] MEDS: Cholecalciferol (Vitamin D3) 25 MCG TABLET 50 MCG PO (08:24)
[2021-07-14] MEDS: Insulin Lispro 100 UNIT/ML 3 ML VIAL SUBCUT ×4 (08:24→21:04)
[2021-07-14] MEDS: Isosorbide Mononitrate 30 MG TAB.ER.24H PO (08:24)
[2021-07-14] MEDS: Metoprolol Tartrate 25 MG TABLET PO ×2 (08:24→21:03)
[2021-07-14] MEDS: FLUoxetine HCl Oral Solution 20 MG/5 ML SOLUTION PO (08:24)
[2021-07-14] MEDS: 0.9 % Sodium Chloride Flush 3 ML SYRINGE IVFLUSH (08:25)
[2021-07-14 08:26] LABS: Glucose, Whole Blood 349 mg/dL (60-115)
--- NOTE | 2021-07-14 09:42 | PC.NURSE ---
Pt resting in hospital bed, offering no complaints. interpreter for the deaf services used. pt repositioned in the bed side lying left. medicated per JUL. no c/o pain or discomfort. call schreiber and belongings within reach.
--- NOTE | 2021-07-14 11:40 | HO.PM.IMPN ---
Subjective Subjective Date of Service: 07/14/21 Interval History: This history was taken in Macedonian from the patient. Dyspnea improved. No chest pain. Wants to go home. Review of Systems Review of Systems: Yes all other systems are reviewed and are negative Physical Exam Vital Signs: Vital Signs: Last Vital Signs Temp 97.3 F 07/14/21 08:05 Pulse 76 07/14/21 08:05 Resp 25 H 07/14/21 08:05 BP 143/66 H 07/14/21 08:05 Pulse Ox 96 07/14/21 08:05 BMI result Body Mass Index 40.1 Gen: in no acute distress HEENT: sclera anicteric, moist mucus membranes Neck: supple Lungs: diminished bilaterally Heart: regular rate and rhythm, no murmurs Abd: soft, non-tender, non-distended, morbidly obese Ext: no edema Skin: warm/well-perfused Neuro: alert and oriented x3, no focal findings Psych: appropriate affect Objective Data Active Medications Albuterol Sulfate (Albuterol Sulfate (0.083%) 2.5 Mg/3 Ml Vial.Neb) 2.5 mg INHALE Q4H PRN PRN Reason: Shortness Of Breath Or Wheezing Albuterol Sulfate (Albuterol Sulfate 90 Mcg 8 Gm Inhaler) 2 puff INHALE Q4H PRN PRN Reason: Wheezing Albuterol/Ipratropium (Albuterol/Iprat 2.5/0.5mg 3 Ml Ampul.Neb) 3 ml INHALE Q4H PRN PRN Reason: Shortness of Breath/Wheezing Atorvastatin Calcium (Atorvastatin Calcium 40 Mg Tablet) 40 mg PO BEDTIME [facility] Clopidogrel Bisulfate (Clopidogrel Bisulfate 75 Mg Tablet) 75 mg PO BEDTIME [facility] Dextrose (Dextrose 50 % 25 Gm/50 Ml Syringe) 25 gm IVPUSH Q15M PRN; Protocol PRN Reason: per Hypoglycemia Standing Ord. Fluoxetine HCl (Fluoxetine Hcl Oral Solution 20 Mg/5 Ml Solution) 20 mg PO DAILY [facility] Last Admin: 07/14/21 08:24 Dose: 20 mg Documented by: TRACY Glucose (Glucose Gel 15 Gm Gel..Gram.) 15 gm PO Q15M PRN; Protocol PRN Reason: per Hypoglycemia Standing Ord. Insulin Human Lispro (Insulin Lispro 100 Unit/Ml 3 Ml Vial) 0 unit SUBCUT QIDACHS [facility]; Protocol Last Admin: 07/14/21 08:24 Dose: 8 unit Documented by: TRACY Comments: fingerstick 349 Isosorbide Mononitrate (Isosorbide Mononitrate 30 Mg Tab.Er.24h) 30 mg PO DAILY [facility]; Protocol Last Admin: 07/14/21 08:24 Dose: 30 mg Documented by: TRACY Loperamide HCl (Loperamide Hcl Oral Liquid 2 Mg/15 Ml Liquid) 1 mg PO Q3D@1000 [facility] Loratadine (Loratadine 10 Mg Tablet) 10 mg PO DAILY PRN PRN Reason: Allergy Symptoms Lorazepam (Lorazepam 0.5 Mg Tablet) 0.5 mg PO DAILY PRN PRN Reason: Anxiety Melatonin (Melatonin 3 Mg Tablet) 6 mg PO BEDTIME PRN PRN Reason: Insomnia Metoprolol Tartrate (Metoprolol Tartrate 25 Mg Tablet) 25 mg PO BID [facility]; Protocol Last Admin: 07/14/21 08:24 Dose: 25 mg Documented by: TRACY Midodrine (Midodrine Hcl 10 Mg Tablet) 10 mg PO TuThSa@0800,1400 [facility] Non-Formulary Medication (Umeclidinium-Vilanterol [Anoro Ellipta]) 1 puff INHALE DAILY [facility] Nystatin (Nystatin Powder 15 Gm Bottle) 1 appl TOPICAL BID PRN; Protocol PRN Reason: Rash Quetiapine Fumarate (Quetiapine Fumarate 50 Mg Tablet) 50 mg PO BEDTIME [facility] Senna (Sennosides 8.6 Mg Tablet) 17.2 mg PO BEDTIME PRN PRN Reason: Constipation Sodium Chloride (0.9 % Sodium Chloride Flush 3 Ml Syringe) 3 ml IVFLUSH QSHIFT [facility] Last Admin: 07/14/21 08:25 Dose: 3 ml Documented by: TRACY Vitamin D (Cholecalciferol (Vitamin D3) 25 Mcg Tablet) 50 mcg PO DAILY [facility] Last Admin: 07/14/21 08:24 Dose: 50 mcg Documented by: TRACY Labs CBC & Chem 7: 07/14/21 07:03 07/14/21 07:03 Labs: Laboratory Results - last 24 hr 07/13/21 07/13/21 07/13/21 17:55 17:55 18:16 MCV 104.1 H MCH 32.1 MCHC 30.8 L RDW 14.4 Plt Count 49 L MPV 14.0 H Immature Gran % (Auto) 0.3 Neut % (Auto) 74.8 H Lymph % (Auto) 13.5 L Cooper % (Auto) 8.4 Eos % (Auto) 2.5 Baso % (Auto) 0.5 Lymph # (Auto) 0.8 L [place] # (Auto) 0.5 Eos # (Auto) 0.2 Baso # (Auto) 0.0 Abs Immat Gran (auto) 0.02 Absolute Neuts (auto) 4.5 Absolute Nucleated RBC 0.000 Nucleated RBC % (auto) 0.0 Smear Tech's Comments VERIFIED PT INR Anion Gap 11 L Estim Creat Clear Calc 11.8 Estimated GFR 10 POC Glucose Random Glucose 150 H Estimat Average Glucose 148 Hemoglobin A1c % 6.8 Calcium 7.4 L D B-Natriuretic Peptide COVID-19 ([facility]) COVID-19 Clin Genbook 07/13/21 07/13/21 07/13/21 18:16 18:16 20:04 MCV MCH MCHC RDW Plt Count MPV Immature Gran % (Auto) Neut % (Auto) Lymph % (Auto) [place] % (Auto) Eos % (Auto) Baso % (Auto) Lymph # (Auto) [place] # (Auto) Eos # (Auto) Baso # (Auto) Abs Immat Gran (auto) Absolute Neuts (auto) Absolute Nucleated RBC Nucleated RBC % (auto) Smear Tech's Comments PT 13.1 H INR 1.2 H Anion Gap Estim Creat Clear Calc Estimated GFR POC Glucose Random Glucose Estimat Average Glucose Hemoglobin A1c % Calcium B-Natriuretic Peptide 1647 H COVID-19 ([facility]) Negative COVID-19 Clin Com See Note 07/14/21 07/14/21 07/14/21 07:03 07:03 08:18 MCV 102.5 H MCH 32.5 MCHC 31.7 RDW 14.1 Plt Count 52 L MPV 13.5 H Immature Gran % (Auto) 0.4 Neut % (Auto) 83.3 H Lymph % (Auto) 14.2 L [place] % (Auto) 2.1 Eos % (Auto) 0.0 Baso % (Auto) 0.0 Lymph # (Auto) 0.4 L [place] # (Auto) 0.1 Eos # (Auto) 0.0 Baso # (Auto) 0.0 Abs Immat Gran (auto) 0.01 Absolute Neuts (auto) 2.4 Absolute Nucleated RBC 0.000 Nucleated RBC % (auto) 0.0 Smear Tech's Comments PT INR Anion Gap 12 Estim Creat Clear Calc 9.6 Estimated GFR 8 POC Glucose 349 H Random Glucose 414 H* Estimat Average Glucose Hemoglobin A1c % Calcium 7.4 L B-Natriuretic Peptide COVID-19 ([facility]) COVID-19 Clin Com Assessment and Plan (1) Acute dyspnea: Status: Resolved (2) Pulmonary edema: Status: Resolved Plan hospital d#2 70yo F with ESRD on HD, HTN, HLD, HFpEF, DM2, COPD sent in after HD for dyspnea + hypoxia # acute/chronic hypoxic resp failure - wean O2 as tolerated, on home O2 2-3L # volume overload # acute/chronic HFpEF - will discuss with Nephro re: extra HD/UF today - continue Imdur, metoprolol, bumetanide # ESRD on HD - Nephrology consult - midodrine with HD # COPD - not wheezing, continue controller + rescue inhalers # HLD - statin # DM2 - correction-dose lispro # VTE ppx - SCDs Quality Stroke Does the patient have a stroke diagnosis?: No VTE Prior VTE?: No VTE Risk Level:: Medical - moderate - high VTE Device Contraindication: Treatment Not Indicated VTE Drug Contraindication: N/A - Med Ordered
[2021-07-14 11:54] LABS: Glucose, Whole Blood 311 mg/dL (60-115)
--- NOTE | 2021-07-14 12:28 | CONS_ITS ---
DATE OF SERVICE: 07/14/2021 REASON FOR CONSULTATION: I was called to see this patient to assist in management of patient's dialysis requirements. To summarize, Liliam is well known to us. She is a 70-year-old woman with a history of ESRD and maintenance hemodialysis. She usually gets dialysis on Tuesdays, , Saturdays at [facility]. She had dialysis yesterday and had shortness of breath, and therefore, she was sent to the hospital. She has had multiple admissions for the same issue. She is currently in the ER, waiting to be admitted to the floor. Ongoing medical problems include history of obesity, anemia, bipolar disorder, chronic diarrhea, COPD, diabetes mellitus, diastolic heart failure, ESRD, on maintenance dialysis, hypertension, thrombocytopenia. SOCIAL HISTORY: Lives with her daughter. She uses a home oxygen. History of smoking in the past. Does not smoke at present. ALLERGIES: SHE IS ALLERGIC TO PENICILLINS, ASPIRIN, DIAZEPAM, METFORMIN. MEDICATIONS: At time of admission include atorvastatin, vitamin D, metoprolol, Plavix, fluoxetine, lorazepam, nystatin, loratadine, midodrine 10 mg, quetiapine, loperamide. REVIEW OF SYSTEMS: Positive for shortness of breath. No chest pain, nausea, vomiting. No abdominal pain or constipation. No urinary symptoms. No fever. No rash. All other systems were reviewed. PHYSICAL EXAMINATION: GENERAL: Liliam is an elderly woman. She is obese, comfortable, lying flat, not in distress. NECK: Supple. No JVD. LUNGS: Scattered rhonchi. HEART: S1, S2 heard. No gallop or rub. ABDOMEN: Soft, nontender. EXTREMITIES: No edema. VITAL SIGNS: Blood pressure was 143/66, pulse 76, temperature 97.3. LABORATORY DATA: Hemoglobin 10.5, platelets of 2000. She might place normal BUN 31, creatinine 5.25, blood sugar 414. Chest x-ray on admission showed enlarged cardiac silhouette. Low lung volumes. Diffuse airspace disease. IMPRESSION: 70-year-old woman with obesity, chronic obstructive pulmonary disease, and end-stage renal disease, comes in with shortness of breath. From a renal standpoint, Liliam is well dialyzed. No signs or symptoms of uremia. There could be a component of fluid overload. We will ultrafiltrate today to remove fluid as tolerated. She should be back on the dialysis schedule on Tuesdays, , Saturdays. If she is stable post dialysis today, she can be discharged. We will follow her along with the team. MD FRANKIE Cooley/MIGUEL / [phone]
[2021-07-14] MEDS: ondansetron HCL 4 MG/2 ML VIAL IVPUSH (13:53)
--- NOTE | 2021-07-14 15:38 | MHC.CM.PN ---
Attempted to meet with patient in regards to discharge planning. Patient currently at a test. No family present. Patient is well-known to case management. Patient has a history of intermitt AMS. T/W spoke with patient's daughter/HCP, Paulina via telephone at [phone]. Patient is bedbound at baseline and has 24/7 care provided between family and [facility] hours through [facility]. PCP verified. HCP verified to be on file. Patient received 3 Moderna vaccines. IMM explained and sent via certified mail. Patient will need BLS tx at d/c. Continue to monitor for d/c needs.
[2021-07-14 17:59] VITALS: BP 132/57; PULSE 88; RESP 19; O2SAT 98
[2021-07-14 18:29] LABS: Glucose, Whole Blood 197 mg/dL (60-115)
[2021-07-14 20:07] VITALS: BP 143/60; PULSE 97; RESP 26; TEMP 36.4; O2SAT 100
[2021-07-14 20:37] LABS: Glucose, Whole Blood 207 mg/dL (60-115)
[2021-07-14] MEDS: QUEtiapine Fumarate 50 MG TABLET PO (21:03)
[2021-07-14] MEDS: Atorvastatin Calcium 40 MG TABLET PO (21:03)
[2021-07-14] MEDS: Clopidogrel Bisulfate 75 MG TABLET PO (21:03)
[2021-07-15 05:50] VITALS: BP 109/58; PULSE 83; RESP 18; TEMP 36.5; O2SAT 100
[2021-07-15 06:13] LABS: Hematocrit 29.2 % (37.0-47.0); Hemoglobin 9.3 g/dl (12.0-16.0); Mean Corpuscular HGB Conc 31.8 g/dl (31.0-35.0); Mean Corpuscular Hemoglobin 31.7 pg (27.0-33.0); Mean Corpuscular Volume 99.7 fL (80.0-98.0); Red Blood Count 2.93 X10*6/uL (4.20-5.50); Red Cell Distribution Width 14.4 % (11.0-16.0); White Blood Count 6.3 X10*3/uL (4.8-10.8)
[2021-07-15 06:14] LABS: Platelet Count 58 X10*3/uL (160-400)
[2021-07-15 06:34] LABS: B Type Natriuretic Peptide 1843 pg/mL (<100)
[2021-07-15 06:54] LABS: Anion Gap 11 (12-20); Blood Urea Nitrogen 47 mg/dL (9-16); Calcium 7.8 mg/dL (8.4-10.2); Carbon Dioxide 28 mmol/L (22-29); Chloride 102 mmol/L (96-108); Creatinine Clr Calc Pharmacy 7.9; Estimated Glomerular Filt Rate 6; Glucose Random 161 mg/dL (60-115); Potassium 3.9 mmol/L (3.3-5.1); Sodium 137 mmol/L (135-145)
[2021-07-15 07:13] LABS: Glucose, Whole Blood 145 mg/dL (60-115)
[2021-07-15 09:16] VITALS: BP 116/50; PULSE 80; RESP 25; O2SAT 96
[2021-07-15] MEDS: Metoprolol Tartrate 25 MG TABLET PO (09:25)
[2021-07-15] MEDS: FLUoxetine HCl Oral Solution 20 MG/5 ML SOLUTION PO (09:25)
[2021-07-15] MEDS: Cholecalciferol (Vitamin D3) 25 MCG TABLET 50 MCG PO (09:25)
[2021-07-15] MEDS: 0.9 % Sodium Chloride Flush 3 ML SYRINGE IVFLUSH (09:25)
[2021-07-15] MEDS: Isosorbide Mononitrate 30 MG TAB.ER.24H PO (09:25)
--- NOTE | 2021-07-15 09:59 | PM.PNNEP ---
Subjective Subjective Date of Service: 09/06/21 Interval history: Events noted s/p UF Due for HD today Physical Exam Vital Signs: Vital Signs: Last Vital Signs Temp 97.7 F 07/15/21 05:50 Pulse 80 07/15/21 09:16 Resp 25 H 07/15/21 09:16 BP 116/50 L 07/15/21 09:16 Pulse Ox 96 07/15/21 09:16 BMI result Body Mass Index 40.1 Const: General: cooperative and comfortable Neck: Neck: Yes supple Resp: Auscultation: rhonchi and diminished lung sounds Cardio: Jugular venous distension: no JVD GI: Palpation (GI): Soft to palpation Auscultation: normal bowel sounds Neuro: Motor exam (neuro): no asterixis Objective Data Labs CBC & Chem 7: 07/15/21 05:38 07/15/21 05:38 Labs: Laboratory Results - last 24 hr 07/14/21 07/14/21 07/14/21 11:42 18:21 20:32 WBC RBC Hgb Hct MCV MCH MCHC RDW Plt Count MPV Absolute Nucleated RBC Nucleated RBC % (auto) Sodium Potassium Chloride Carbon Dioxide Anion Gap BUN Creatinine Estim Creat Clear Calc Estimated GFR POC Glucose 311 H 197 H 207 H Random Glucose Calcium B-Natriuretic Peptide 07/15/21 07/15/21 07/15/21 05:38 05:38 05:38 WBC 6.3 RBC 2.93 L Hgb 9.3 L Hct 29.2 L MCV 99.7 H MCH 31.7 MCHC 31.8 RDW 14.4 Plt Count 58 L MPV 14.0 H Absolute Nucleated RBC 0.000 Nucleated RBC % (auto) 0.0 Sodium 137 Potassium 3.9 Chloride 102 Carbon Dioxide 28 Anion Gap 11 L BUN 47 H D Creatinine 6.36 H* Estim Creat Clear Calc 7.9 Estimated GFR 6 POC Glucose Random Glucose 161 H Calcium 7.8 L B-Natriuretic Peptide 1843 H 07/15/21 07:10 WBC RBC Hgb Hct MCV MCH MCHC RDW Plt Count MPV Absolute Nucleated RBC Nucleated RBC % (auto) Sodium Potassium Chloride Carbon Dioxide Anion Gap BUN Creatinine Estim Creat Clear Calc Estimated GFR POC Glucose 145 H Random Glucose Calcium B-Natriuretic Peptide Procedures Date of Service Date of Service: 07/15/21 Assessment & Plan Assessment and plan (1) ESRD (end stage renal disease): Status: Acute Plan ESRD on HD mild fluid overload s/p UF HD again today Possible DC post HD today Time Spent With Patient Time: Total time spent is greater than 50% in coordination of care (as documented) at patient's floor/unit and/or counseling patient: Time with patient: 15 - 24 minutes Progress Note: Quality Stroke Does the patient have a stroke diagnosis?: No
--- NOTE | 2021-07-15 10:25 | P.DS_ITS ---
DS: Providers Provider Date of Service: 07/15/21 Date of admission: 07/13/21 19:16 Date of discharge: 07/15/21 Primary care physician: Jennifer Loya MD Consults: 07/13/21 22:27 Consult to Nephrology Routine Consulting Provider: Farhad Martinez Reason for consultation: esrd DS: Diagnosis Discharge Diagnosis (1) Acute dyspnea: Status: Resolved (2) Pulmonary edema: Status: Resolved (3) Volume overload: Status: Acute (4) Acute on chronic heart failure with preserved ejection fraction (HFpEF): Status: Acute (5) ESRD (end stage renal disease): Status: Acute (6) Acute on chronic respiratory failure with hypoxemia: Status: Acute DS: Summary Hospital Course Hospital Course: from admission H+P by Estrada Ramos 07/13/21: 70-year-old female with a past medical history of hypertension, hyperlipidemia, ESRD on hemodialysis, diastolic CHF, diabetes, COPD, history of chronic diarrhea, bipolar disorder, anemia, history of staph bacteremia, thrombocytopenia presented to the hospital with a chief complaint of shortness of breath/dizziness.? ?patient reported that while having dialysis she felt dizzy; also had an episode of substernal chest discomfort; dialysis team noted the patient was hypoxic; subsequently sent to the ER for further evaluation.? At the time of entry patient reported chest pain improved.? Also mentioned that her dizziness is also resolved.? ?patient reported that her chest discomfort? was similar to her acid reflux. Breathing comfortably on supplemental oxygen.? Saturating well.? Denies any fevers or cough.? Denies any GI symptoms.? Review of all other systems is negative except mentioned above ER course: Per ER team patient on presentation noted to be saturating 80%; placed on supplemental oxygen; given nebulizer treatment This 70yo F with ESRD on HD, HTN, HLD, HFpEF, DM2, COPD sent in after HD for dyspnea + hypoxia likely due to volume overload/HFpEF. She received a session of ultrafiltration on 07/14/21 and her usual dialysis on 07/15/21. She improved and was discharged home with continuation of chronic O2, 3L via nasal cannula. COPD exacerbation was not thought to be a significant contribution to her symptoms. Time Spent with Patient Time attestation: Total time spent providing and/or coordinating discharge services: Discharge coordination time: Greater than 30 minutes Quality: Stroke Does the patient have a stroke diagnosis?: No Physical Exam Vital Signs: Vital Signs: Last Vital Signs Temp 97.7 F 07/15/21 05:50 Pulse 80 07/15/21 09:16 Resp 25 H 07/15/21 09:16 BP 116/50 L 07/15/21 09:16 Pulse Ox 96 07/15/21 09:16 BMI result Body Mass Index 40.1 Gen: in no acute distress HEENT: sclera anicteric, moist mucus membranes Neck: supple Lungs: diminished bilaterally. currently breathing 18/min by my exam Heart: regular rate and rhythm, no murmurs Abd: soft, non-tender, non-distended, morbidly obese Ext: no edema Skin: warm/well-perfused Neuro: alert and oriented x3, no focal findings Psych: appropriate affect DS: Data Data Completed and Pending Completed studies during hospitalization [Text1]: Laboratory Results WBC 6.3 X10*3/uL (4.8-10.8) 07/15/21 05:38 RBC 2.93 X10*6/uL (4.20-5.50) L 07/15/21 05:38 Hgb 9.3 g/dl (12.0-16.0) L 07/15/21 05:38 Hct 29.2 % (37.0-47.0) L 07/15/21 05:38 MCV 99.7 fL (80.0-98.0) H 07/15/21 05:38 MCH 31.7 pg (27.0-33.0) 07/15/21 05:38 MCHC 31.8 g/dl (31.0-35.0) 07/15/21 05:38 RDW 14.4 % (11.0-16.0) 07/15/21 05:38 Plt Count 58 X10*3/uL (160-400) L 07/15/21 05:38 MPV 14.0 fL (9.4-12.3) H 07/15/21 05:38 Immature Gran % (Auto) 0.4 % (0.0-0.4) 07/14/21 07:03 Neut % (Auto) 83.3 % (45-73) H 07/14/21 07:03 Lymph % (Auto) 14.2 % (20-40) L 07/14/21 07:03 [place] % (Auto) 2.1 % (2-11) 07/14/21 07:03 Eos % (Auto) 0.0 % (0-4) 07/14/21 07:03 Baso % (Auto) 0.0 % (0-2) 07/14/21 07:03 Lymph # (Auto) 0.4 X10*3/uL (1.2-4.9) L 07/14/21 07:03 [place] # (Auto) 0.1 X10*3/uL (0.1-1.2) 07/14/21 07:03 Eos # (Auto) 0.0 X10*3/uL (0.0-0.4) 07/14/21 07:03 Baso # (Auto) 0.0 X10*3/uL (0.0-0.2) 07/14/21 07:03 Abs Immat Gran (auto) 0.01 X10*3/uL (0.00-0.03) 07/14/21 07:03 Absolute Neuts (auto) 2.4 x10*3/uL (2.0-8.3) 07/14/21 07:03 Absolute Nucleated RBC 0.000 X10*3/uL (0.0-0.012) 07/15/21 05:38 Nucleated RBC % (auto) 0.0 /100WBC (0.0-0.2) 07/15/21 05:38 Smear Tech's Comments VERIFIED 07/13/21 18:16 PT 13.1 SEC (9.9-13.0) H 07/13/21 18:16 INR 1.2 (0.9-1.1) H 07/13/21 18:16 Sodium 137 mmol/L (135-145) 07/15/21 05:38 Potassium 3.9 mmol/L (3.3-5.1) 07/15/21 05:38 Chloride 102 mmol/L (96-108) 07/15/21 05:38 Carbon Dioxide 28 mmol/L (22-29) 07/15/21 05:38 Anion Gap 11 (12-20) L 07/15/21 05:38 BUN 47 mg/dL (9-16) H D 07/15/21 05:38 Creatinine 6.36 mg/dL (0.5-1.4) H* 07/15/21 05:38 Estim Creat Clear Calc 7.9 07/15/21 05:38 Estimated GFR 6 07/15/21 05:38 POC Glucose 145 mg/dL (60-115) H 07/15/21 07:10 Random Glucose 161 mg/dL (60-115) H 07/15/21 05:38 Estimat Average Glucose 148 mg/dL 07/13/21 17:55 Hemoglobin A1c % 6.8 % 07/13/21 17:55 Calcium 7.8 mg/dL (8.4-10.2) L 07/15/21 05:38 Troponin I High Sens 16.8 ng/L (<3.5-17.0) 07/13/21 17:55 B-Natriuretic Peptide 1843 pg/mL (<100) H 07/15/21 05:38 COVID-19 ([facility]) Negative (Negative) 07/13/21 20:04 COVID-19 Clin Com See Note 07/13/21 20:04 Impressions Chest X-Ray 07/13/21 15:00 IMPRESSION: Enlarged cardiac silhouette. Low lung volumes. Bilateral diffuse airspace disease. Differential would include pneumonia and pulmonary edema. Discharge Plan Discharge Patient Disposition: Home Health Service Discharge Diagnosis: volume overload Referrals: Jennifer Loya MD [Primary Care Provider] - 1 Week Discharge Medications: Continued atorvastatin 40 mg tablet 40 mg PO BEDTIME 0RF metoprolol tartrate 25 mg tablet 25 mg PO BID 0RF cholecalciferol (vitamin D3) 50 mcg (2,000 unit) tablet 50 mcg PO DAILY 0RF fluoxetine 20 mg/5 mL (4 mg/mL) solution 5 ml PO DAILY 0RF clopidogrel 75 mg tablet 1 tab PO BEDTIME 0RF lorazepam 0.5 mg tablet 0.5 mg PO DAILY PRN (Reason: Anxiety) 0RF Anoro Ellipta 62.5-25 mcg/actuation blister with device 1 puff inhalation DAILY 0RF isosorbide mononitrate 30 mg tablet extended release 24 hr 30 mg PO DAILY Qty: 30 0RF albuterol sulfate [ProAir HFA] 90 mcg/actuation HFA aerosol inhaler 2 puff inhalation Q4-6H PRN (Reason: Wheezing) Qty: 8.5 0RF midodrine 10 mg tablet See Rx Instructions .ROUTE .COMPLEX 0RF Rx Instructions: Take 1 tablet prior to dialysis, then takes 1 tablet while at dialysis albuterol sulfate 2.5 mg /3 mL (0.083 %) Solution For Nebulization 2.5 mg INHALATION Q4H PRN (Reason: Shortness Of Breath Or Wheezing) 0RF loratadine 10 mg Tablet 10 mg PO DAILY PRN (Reason: Allergy Symptoms) 0RF quetiapine 25 mg Tablet 50 mg PO BEDTIME 0RF loperamide 1 mg/7.5 mL Liquid 1 mg PO Q3D@1000 0RF nystatin 100,000 unit/gram powder 1 appl topical BID PRN (Reason: Rash) 0RF Discharge Orders: Discharge Order (Routine); Ordered 07/15/21 Ordered By: Hanna Delarosa Diet: advance to usual diet, diabetic diet, low salt diet and other Activity on Discharge: As tolerated Stand Alone Forms: Patient Portal Discharge page Care Plan Goals: cardiovascular health normal volume status Health Concerns: CHF ESRD on HD Plan of Treatment: continue hemodialysis // see primary care doctor in 1-2 weeks Assessment: see Discharge Summary Patient Instructions: End Stage Kidney Disease (ED)
[2021-07-15] MEDS: Midodrine HCl 10 MG TABLET PO (12:28)
--- NOTE | 2021-07-15 12:41 | PC.NURSE ---
Pt to dialysis at this time.
--- NOTE | 2021-07-15 15:14 | PC.NURSE ---
Assumed care of pt at 0700, A&Ox2, no complaints of pain, no SOB or WOB noted at this time. Plan for dialysis then DC home. Family is aware. Call schreiber within reach, will continue to monitor.
[2021-07-15 17:46] LABS: Glucose, Whole Blood 101 mg/dL (60-115)
== END 2021-07-15 22:15 | disposition home health service (06) | DRG 291 ==
LOC: HO.ED 14:49 → HO.EDOVER 19:40
PROVIDERS: Emergency Medicine; Admitting Provider Hospitalist; Emergency Provider Emergency Medicine; PCP Family Medicine; Visit Provider Family Medicine
DX: I13.2 Hypertensive heart and chronic kidney disease with heart failure and with stage 5 chronic kidney disease, or end stage renal disease (principal); N18.6 End stage renal disease; I50.33 Acute on chronic diastolic (congestive) heart failure; J96.21 Acute and chronic respiratory failure with hypoxia; E11.22 Type 2 diabetes mellitus with diabetic chronic kidney disease; Z99.2 Dependence on renal dialysis; E78.5 Hyperlipidemia, unspecified; J44.9 Chronic obstructive pulmonary disease, unspecified; F31.9 Bipolar disorder, unspecified; Z87.891 Personal history of nicotine dependence; Z20.822 Contact with and (suspected) exposure to COVID-19; Z99.81 Dependence on supplemental oxygen; Z66 Do not resuscitate; Z88.0 Allergy status to penicillin; Z88.6 Allergy status to analgesic agent; Z79.899 Other long term (current) drug therapy
CPT/HCPCS: 36415; 71045; 80048; 82947; 83036; 83880; 84484; 85025; 85027; 85610; 87635; 90999; 93005; 94640; 94644; 96374; 99284; 99285; J2405; J2930

== ENCOUNTER 2021-09-21 11:09 | Inpatient (IN) | payer MEDICARE, MEDICAID, SELFPAY ==
[2021-09-21] VITALS (9 sets, daily range): BP systolic 92–105; BP diastolic 35–74; PULSE 70–120; RESP 14–30; TEMP 36.2–38.8; O2SAT 93–100; BMI 28.5
--- NOTE | ~2021-09-21 | XR_ITS ---
EXAMINATION: XR CHEST CLINICAL INFORMATION: Shortness of breath COMPARISON: 09/21/2021 TECHNIQUE: Frontal view of the chest was obtained. FINDINGS: Catheter overlying the right atrium. Similar to previous. Diffuse coarse interstitial markings are once again seen. These appear worsening from previous. This may represent edema versus infiltrate XR/XR chest 1V IMPRESSION: Worsening coarse interstitial markings bilaterally may represent edema and/or infiltrate
--- NOTE | ~2021-09-21 | XR_ITS ---
EXAMINATION: XR CHEST CLINICAL INFORMATION: Fever. COMPARISON: 07/13/[address] scan dated 06/03/2020. TECHNIQUE: Frontal view of the chest was obtained. FINDINGS: Support devices: Left-sided large-bore central venous catheter with tip terminating at the level the right atrium. Mild diffuse interstitial markings are seen bilaterally with interval decrease. The heart and mediastinal structures are unremarkable. XR/XR chest 1V IMPRESSION: Diffuse increased interstitial markings are nonspecific, but represents interval decrease from the previous study. This could represent chronic interstitial changes however residual mild infectious/inflammatory process cannot be excluded.
[2021-09-21 11:32] LABS: Glucose, Whole Blood 156 mg/dL (60-115)
--- NOTE | 2021-09-21 11:33 | ECG_ITS ---
Test Reason : FEVER Blood Pressure : / mmHG Vent. Rate : 104 BPM Atrial Rate : 104 BPM P-R Int : 124 ms QRS Dur : 076 ms QT Int : 336 ms P-R-T Axes : 040 018 039 degrees QTc Int : 441 ms Sinus tachycardia Otherwise normal ECG When compared with ECG of 13-JUL-2021 15:45, Premature supraventricular complexes are no longer Present Nonspecific T wave abnormality no longer evident in Inferior leads Referred By: Generic ED Physician Electronically Signed By:ARTURO ALDANA MD
--- NOTE | 2021-09-21 12:13 | ED_ITS ---
HPI - Fever General Chief Complaint: Fever Stated Complaint: NAUSEA,FEVER X'S 2 DAYS Time Seen by Provider: 09/21/21 12:12 Source: patient, family (Daughter over the phone), EMS and language interpreter Mode of arrival: EMS Limitations: no limitations History of Present Illness HPI Narrative: 71 years old female end-stage renal disease on dialysis came in for evaluation after having subjective fever for the past 2 days. End-stage renal disease on dialysis last dialysis was 2 days ago patient was due for dialysis today because she has been having a fever patient was sent to the hospital instead to the dialysis, patient has some what limited historian able to report fever for the last 2 days. Headache or neck stiffness complaining of mild neck pain which appears to be chronic, no coughing, no abdominal pain, patient still make urine but no urinary symptoms, no skin redness or hotness. Patient also declined flu-like symptoms no sneezing or coughing. Related Data Home Medications Medication Instructions Recorded Confirmed atorvastatin 40 mg tablet 40 mg PO BEDTIME 04/24/20 07/13/21 cholecalciferol (vitamin D3) 50 50 mcg PO DAILY 04/24/20 07/13/21 mcg (2,000 unit) tablet metoprolol tartrate 25 mg tablet 25 mg PO BID 04/24/20 07/13/21 clopidogrel 75 mg tablet 1 tab PO BEDTIME 07/16/20 07/13/21 fluoxetine 20 mg/5 mL (4 mg/mL) 5 ml PO DAILY 07/16/20 07/13/21 oral solution lorazepam 0.5 mg tablet 0.5 mg PO DAILY PRN 07/16/20 07/13/21 umeclidinium 62.5 mcg-vilanterol 1 puff INHALATION DAILY 07/16/20 07/13/21 25 mcg/actuation powdr for inhalation (Anoro Ellipta) nystatin 100,000 unit/gram topical 1 appl TOPICAL BID PRN 01/05/21 07/13/21 powder albuterol sulfate 2.5 mg INHALATION Q4H PRN 06/12/21 07/13/21 loratadine 10 mg tablet 10 mg PO DAILY PRN 06/12/21 07/13/21 midodrine 10 mg tablet See Rx Instructions .ROUTE .COMPLEX 06/12/21 07/13/21 loperamide 1 mg/7.5 mL oral liquid 1 mg PO Q3D@1000 07/13/21 07/13/21 quetiapine 25 mg tablet 50 mg PO BEDTIME 07/13/21 07/13/21 Previous Rx's Medication Instructions Recorded isosorbide mononitrate 30 mg 30 mg PO DAILY #30 tab 07/17/20 tablet,extended release 24 hr albuterol sulfate 90 mcg/actuation 2 puff INHALATION Q4-6H PRN #8.5 g 05/26/21 aerosol inhaler (ProAir HFA) Allergies Allergy/AdvReac Type Severity Reaction Status Date / Time Penicillins Allergy Severe Anaphylaxis, Verified 09/21/21 11:24 hives acetaminophen [From TYLENOL] Allergy Unknown Unknown Verified 09/21/21 11:24 aspirin [ASPIRIN] Allergy Unknown rash, Verified 09/21/21 11:24 stomach upset diazepam [From VALIUM] Allergy Unknown RESP Verified 09/21/21 11:24 FAILURE penicillin V Allergy Unknown edema Verified 09/21/21 11:24 metformin [Metformin] AdvReac Mild DIARRHEA Verified 09/21/21 11:24 Review of Systems Review of Systems: Yes Unobtainable due to mental condition [facility] Past Medical History Medical History Anemia Anemia Bacteremia due to Staphylococcus Bipolar disorder Chronic diarrhea Constipation COPD (chronic obstructive pulmonary disease) Diabetes Diastolic CHF Diastolic dysfunction Dislodged gastrostomy tube Diverticulitis Dyspnea ESRD (end stage renal disease) ESRF (end stage renal failure) Hyperlipidemia Hypertension Pneumonia Renal failure Thrombocytopenia Social History Social History Household Members: Children Household Members Other:: daughter Housing: Apartment Do you presently have visiting nurse or other home services: No Unable to assess alcohol history related to: Unknown Alcohol intake: never Patient Tobacco Use Status: Former Tobacco user Years Smoked: many years Advance Directives: Yes Advance Directives on File: Yes Advance Directives Date on File: 06/12/20 service: No Current occupational status: retired and disabled Physical Exam Vital Signs: Vital Signs: Last Vital Signs Temp 97.1 F 09/21/21 15:23 Pulse 110 H 09/21/21 15:23 Resp 14 09/21/21 15:23 BP 103/58 L 09/21/21 15:23 Pulse Ox 98 09/21/21 15:23 Oxygen Flow Rate 3 09/21/21 11:24 BMI result Body Mass Index 28.5 Vital signs have been reviewed as appeared to be correct. Blood pressure mayo l. Heart rate normal. Respiration rate normal. Temperature normal. Oxygen saturation normal. Appearance: Alert. Oriented x3 place and person and event. No acute distress. Head: Normal external exam. Normocephalic. Atraumatic. No Muniz signs noted. No raccoon eyes noted Eyes: PERRLA. EOMI. Conjunctiva and sclera normal. Eyelids normal. ENT: TM's Normal. Pharynx normal. Uvula midline. Moist mucous membranes. No trismus noted. No drooling noted. No muffled voice noted. Neck: Normal inspection. Neck supple. FROM. No adenopathy. Thyroid Normal. No meningeal signs. No neck mass noted. CVS: Normal heart rate and rhythm. Heart sound normal. No murmurs noted. Pulses normal throughout. Respiratory: No respiratory distress. Painless inspiration. Breath sounds normal. No wheezes/rales/rhonchi noted. Chest nontender. No accessory muscle usage noted or decreased air movement noted. Abdomen: Soft and nontender. Bowel sounds normal in all 4 quadrants. No dist ention noted. No organomegaly noted. No visible injury noted. Back: No CVA tenderness. Full range of motion noted. Skin: Skin warm and dry. Normal skin color. Normal skin turgor. No rashes/lesi ons/lacerations noted. AV shunt in the right arm with good thrill sensation, scan showing no redness or hotness. Extremities: No lower extremity edema. Extremities exhibit normal range of motion. Extremities nontender. Neuro: Oriented X 3. Cranial nerve exam: II-XII are grossly intact No motor deficit. No sensory deficit. Reflexes normal. Course Course Course Narrative: Assessment and plan. 71-year-old female end-stage renal disease on dialysis, last dialysis was 3 days ago, came in for evaluation of fever, patient met criteria for SIRS, straight cath attempts to obtain urine unable to collect urine, history strongly suggestive for urinary tract infection will cover with empirical Levaquin, because the patient is missing her dialysis today with possible over volume will only administer 250 cc of normal saline. MDM - Fever Lab Data Attestation: I reviewed the patient's lab results. Result diagrams: 09/21/21 12:11 09/21/21 12:10 Labs: Lab Results 09/21/21 09/21/21 09/21/21 Range/Units 11:28 12:10 12:10 WBC (4.8-10.8) X10*3/uL RBC (4.20-5.50) X10*6/uL Hgb (12.0-16.0) g/dl Hct (37.0-47.0) % MCV (80.0-98.0) fL MCH (27.0-33.0) pg MCHC (31.0-35.0) g/dl RDW (11.0-16.0) % Plt Count (160-400) X10*3/uL MPV (9.4-12.3) fL Immature Gran % (Auto) (0.0-0.4) % Neut % (Auto) (45-73) % Lymph % (Auto) (20-40) % [place] % (Auto) (2-11) % Eos % (Auto) (0-4) % Baso % (Auto) (0-2) % Lymph # (Auto) (1.2-4.9) X10*3/uL [place] # (Auto) (0.1-1.2) X10*3/uL Eos # (Auto) (0.0-0.4) X10*3/uL Baso # (Auto) (0.0-0.2) X10*3/uL Abs Immat Gran (auto) (0.00-0.03) X10*3/uL Absolute Neuts (auto) (2.0-8.3) x10*3/uL Absolute Nucleated RBC (0.0-0.012) X10*3/uL Nucleated RBC % (auto) (0.0-0.2) /100WBC Sodium 133 L (135-145) mmol/L Potassium 5.3 H D (3.3-5.1) mmol/L Chloride 96 (96-108) mmol/L Carbon Dioxide 26 (22-29) mmol/L Anion Gap 16 (12-20) BUN 67 H (9-16) mg/dL Creatinine 7.40 H* (0.5-1.4) mg/dL Estim Creat Clear Calc 6.8 Estimated GFR 5 POC Glucose 156 H (60-115) mg/dL Random Glucose 178 H (60-115) mg/dL Lactic Acid 2.4 H* (0.5-2.0) mmol/L Lactic Acid F/U @ 2Hr (0.5-2.0) mmol/L Calcium 8.1 L (8.4-10.2) mg/dL Total Bilirubin 1.8 H (0.0-1.0) mg/dL AST 26 (5-31) U/L ALT 21 (0-31) U/L Alkaline Phosphatase 172 H D (39-117) U/L Total Protein 6.6 (6.5-8.0) g/dL Albumin 2.4 L (3.5-5.0) g/dL Influenza Type A (PCR) (Negative) Influenza Type B (PCR) (Negative) RSV RNA Qual (PCR) (Negative) SARS-CoV-2 RNA (RT-PCR) (Negative) 09/21/21 09/21/21 09/21/21 Range/Units 12:11 12:11 14:32 WBC 10.8 (4.8-10.8) X10*3/uL RBC 3.83 L D (4.20-5.50) X10*6/uL Hgb 12.3 D (12.0-16.0) g/dl Hct 37.1 D (37.0-47.0) % MCV 96.9 (80.0-98.0) fL MCH 32.1 (27.0-33.0) pg MCHC 33.2 (31.0-35.0) g/dl RDW 14.5 (11.0-16.0) % Plt Count 85 L D (160-400) X10*3/uL MPV 12.7 H (9.4-12.3) fL Immature Gran % (Auto) 0.9 H (0.0-0.4) % Neut % (Auto) 81.5 H (45-73) % Lymph % (Auto) 6.8 L (20-40) % [place] % (Auto) 8.8 (2-11) % Eos % (Auto) 1.7 (0-4) % Baso % (Auto) 0.3 (0-2) % Lymph # (Auto) 0.7 L (1.2-4.9) X10*3/uL [place] # (Auto) 1.0 (0.1-1.2) X10*3/uL Eos # (Auto) 0.2 (0.0-0.4) X10*3/uL Baso # (Auto) 0.0 (0.0-0.2) X10*3/uL Abs Immat Gran (auto) 0.10 H (0.00-0.03) X10*3/uL Absolute Neuts (auto) 8.8 H (2.0-8.3) x10*3/uL Absolute Nucleated RBC 0.000 (0.0-0.012) X10*3/uL Nucleated RBC % (auto) 0.0 (0.0-0.2) /100WBC Sodium (135-145) mmol/L Potassium (3.3-5.1) mmol/L Chloride (96-108) mmol/L Carbon Dioxide (22-29) mmol/L Anion Gap (12-20) BUN (9-16) mg/dL Creatinine (0.5-1.4) mg/dL Estim Creat Clear Calc Estimated GFR POC Glucose (60-115) mg/dL Random Glucose (60-115) mg/dL Lactic Acid (0.5-2.0) mmol/L Lactic Acid F/U @ 2Hr 2.5 H* (0.5-2.0) mmol/L Calcium (8.4-10.2) mg/dL Total Bilirubin (0.0-1.0) mg/dL AST (5-31) U/L ALT (0-31) U/L Alkaline Phosphatase (39-117) U/L Total Protein (6.5-8.0) g/dL Albumin (3.5-5.0) g/dL Influenza Type A (PCR) NEGATIVE (Negative) Influenza Type B (PCR) NEGATIVE (Negative) RSV RNA Qual (PCR) NEGATIVE (Negative) SARS-CoV-2 RNA (RT-PCR) NEGATIVE (Negative) 09/21/21 Range/Units 15:52 WBC (4.8-10.8) X10*3/uL RBC (4.20-5.50) X10*6/uL Hgb (12.0-16.0) g/dl Hct (37.0-47.0) % MCV (80.0-98.0) fL MCH (27.0-33.0) pg MCHC (31.0-35.0) g/dl RDW (11.0-16.0) % Plt Count (160-400) X10*3/uL MPV (9.4-12.3) fL Immature Gran % (Auto) (0.0-0.4) % Neut % (Auto) (45-73) % Lymph % (Auto) (20-40) % [place] % (Auto) (2-11) % Eos % (Auto) (0-4) % Baso % (Auto) (0-2) % Lymph # (Auto) (1.2-4.9) X10*3/uL [place] # (Auto) (0.1-1.2) X10*3/uL Eos # (Auto) (0.0-0.4) X10*3/uL Baso # (Auto) (0.0-0.2) X10*3/uL Abs Immat Gran (auto) (0.00-0.03) X10*3/uL Absolute Neuts (auto) (2.0-8.3) x10*3/uL Absolute Nucleated RBC (0.0-0.012) X10*3/uL Nucleated RBC % (auto) (0.0-0.2) /100WBC Sodium (135-145) mmol/L Potassium (3.3-5.1) mmol/L Chloride (96-108) mmol/L Carbon Dioxide (22-29) mmol/L Anion Gap (12-20) BUN (9-16) mg/dL Creatinine (0.5-1.4) mg/dL Estim Creat Clear Calc Estimated GFR POC Glucose 109 (60-115) mg/dL Random Glucose (60-115) mg/dL Lactic Acid (0.5-2.0) mmol/L Lactic Acid F/U @ 2Hr (0.5-2.0) mmol/L Calcium (8.4-10.2) mg/dL Total Bilirubin (0.0-1.0) mg/dL AST (5-31) U/L ALT (0-31) U/L Alkaline Phosphatase (39-117) U/L Total Protein (6.5-8.0) g/dL Albumin (3.5-5.0) g/dL Influenza Type A (PCR) (Negative) Influenza Type B (PCR) (Negative) RSV RNA Qual (PCR) (Negative) SARS-CoV-2 RNA (RT-PCR) (Negative) Imaging Data Chest x-ray: Attestation: I personally reviewed and interpreted this imaging study as follows: Radiologist's impression: Diffuse increased interstitial markings are nonspecific, but represents interval decrease from the previous study. This could represent chronic interstitial changes however residual mild infectious/inflammatory process cannot be excluded. ? ECG Data ECG #1: Attestation: I personally reviewed and interpreted this ECG as follows: Interpretation: Sinus tachycardia at 104 beats per minutes, normal axis deviation, normal intervals, no ST-T changes. Discharge Plan Discharge Clinical Impression: Acute UTI Patient Disposition: Admitted As Inpatient
[2021-09-21 12:18] LABS: MANUAL DIFF FLAG NO
[2021-09-21 12:20] LABS: Basophils Percent Auto 0.3 % (0-2); Eosinophils Absolute Auto 0.2 X10*3/uL (0.0-0.4); Eosinophils Percent Auto 1.7 % (0-4); Hematocrit 37.1 % (37.0-47.0); Hemoglobin 12.3 g/dl (12.0-16.0); Imm Gran Pct Auto 0.9 % (0.0-0.4); Lymphocytes Absolute Auto 0.7 X10*3/uL (1.2-4.9); Lymphocytes Percent Auto 6.8 % (20-40); Mean Corpuscular HGB Conc 33.2 g/dl (31.0-35.0); Mean Corpuscular Hemoglobin 32.1 pg (27.0-33.0); Mean Corpuscular Volume 96.9 fL (80.0-98.0); Mean Platelet Volume 12.7 fL (9.4-12.3); Monocytes Percent Auto 8.8 % (2-11); Neutrophils Absolute Auto 8.8 x10*3/uL (2.0-8.3); Neutrophils Percent Auto 81.5 % (45-73); Red Blood Count 3.83 X10*6/uL (4.20-5.50); Red Cell Distribution Width 14.5 % (11.0-16.0); White Blood Count 10.8 X10*3/uL (4.8-10.8)
[2021-09-21 12:23] LABS: Platelet Count 85 X10*3/uL (160-400)
[2021-09-21 12:41] LABS: Alanine Aminotransferase 21 U/L (0-31); Albumin Level 2.4 g/dL (3.5-5.0); Alkaline Phosphatase 172 U/L (39-117); Anion Gap 16 (12-20); Aspartate Amino Transferase 26 U/L (5-31); Bilirubin Total 1.8 mg/dL (0.0-1.0); Blood Urea Nitrogen 67 mg/dL (9-16); Calcium 8.1 mg/dL (8.4-10.2); Carbon Dioxide 26 mmol/L (22-29); Chloride 96 mmol/L (96-108); Creatinine Clr Calc Pharmacy 6.8; Estimated Glomerular Filt Rate 5; Glucose Random 178 mg/dL (60-115); Lactic Acid 2.4 mmol/L (0.5-2.0); Potassium 5.3 mmol/L (3.3-5.1); Sodium 133 mmol/L (135-145); Total Protein 6.6 g/dL (6.5-8.0)
[2021-09-21 13:04] LABS: Influenza A PCR NEGATIVE (Negative); Influenza B PCR NEGATIVE (Negative); Resp Syncy Virus RNA Qual PCR NEGATIVE (Negative); SARS COV2 PCR INHOUSE NEGATIVE (Negative)
[2021-09-21 14:16] LABS: Reflex Lactate? Lactic Acid Added
[2021-09-21 14:59] LABS: ~Lactic Acid-LAB USE ONLY 2.5 mmol/L (0.5-2.0)
--- NOTE | 2021-09-21 15:04 | PC.NURSE ---
pt has been a difficult stick. unable to obtain blood cultures. phlebotomy asked for assitance.
[2021-09-21 15:55] LABS: Glucose, Whole Blood 109 mg/dL (60-115)
--- NOTE | 2021-09-21 16:22 | PC.NURSE ---
Pt has been sleeping mostly. Hospitalist at bedside now with paperhanger and painter. Bladder scanned for 79ml. straight cath has almost no urine present. pt has no complaints.
[2021-09-21] MEDS: 0.9 % Sodium Chloride 1,000 ML 250 ML IV (16:25)
[2021-09-21 16:36] LABS: Reflex Lactate? 2 Y
--- NOTE | 2021-09-21 17:03 | PHA.MEDREC ---
Pharmacy Consult ? Medication Reconciliation Pharmacy has completed the medication reconciliation. Used filler shredder helper at bedside, pt unaware of what she takes at home but said she took her medications this am 09/21/21. Called her daughter Paulina ([phone]) who confirmed her medication list.
[2021-09-21] MEDS: cefTRIAXone sodium 1 GM in 0.9 % Sodium Chloride 50 ML IV (17:50)
[2021-09-21] MEDS: Acetaminophen 325 MG TABLET 975 MG PO (17:51)
--- NOTE | 2021-09-21 17:52 | P.HPHOSP_ITS ---
History of Present Illness Date of Service: 09/21/21 Chief Complaint: Fever, weakness A 71 years old lady with PMH of HTN, HLD, ESRD on HD, diastolic CHF, diabetes, COPD, bipolar, bed-bound, chronic hypoxic failure on O2 at home, among others who presents to the hospital for reported fever and weakness. The patient is Croatian speakers and answers questions with and clarity. She reports that she went to dialysis today but they asked her to go to the emergency as she had high temperature and reported to be hypoxic She reports that for the last day or 2 she has been feeling little bit of with subjective fever feeling and burning urination. She denies any shortness of breath, chest pain, cough, nausea or vomiting, change in bowel habit or any wounds. In the emergency she was noticed to be febrile with tachycardia and elevated lactic acid but was never found hypoxic Concerns about possible urine infec tion. Admitted for further evaluation and treatment. Review of Systems Review of Systems: Subjective fever, chills with increased generalized weakness No chest pain, palpitation No shortness of breath or coughing No abdominal pain, nausea or vomiting Report burning urination No any rash or wounds PMFSH Medical History Anemia Anemia Bacteremia due to Staphylococcus Bipolar disorder Chronic diarrhea Constipation COPD (chronic obstructive pulmonary disease) Diabetes Diastolic CHF Diastolic dysfunction Dislodged gastrostomy tube Diverticulitis Dyspnea ESRD (end stage renal disease) ESRF (end stage renal failure) Hyperlipidemia Hypertension Pneumonia Renal failure Thrombocytopenia Social History Household Members: Children Household Members Other:: daughter Housing: Apartment Do you presently have visiting nurse or other home services: No Unable to assess alcohol history related to: Unknown Alcohol intake: never Patient Tobacco Use Status: Former Tobacco user Years Smoked: many years Use of substances other than those prescribed or required for medical reasons: No Advance Directives: Yes Advance Directives on File: Yes Advance Directives Date on File: 06/12/20 service: No Current occupational status: retired and disabled Meds Allergies Allergy/AdvReac Type Severity Reaction Status Date / Time Penicillins Allergy Severe Anaphylaxis, Verified 09/21/21 11:24 hives acetaminophen [From TYLENOL] Allergy Unknown Unknown Verified 09/21/21 11:24 aspirin [ASPIRIN] Allergy Unknown rash, Verified 09/21/21 11:24 stomach upset diazepam [From VALIUM] Allergy Unknown RESP Verified 09/21/21 11:24 FAILURE penicillin V Allergy Unknown edema Verified 09/21/21 11:24 metformin [Metformin] AdvReac Mild DIARRHEA Verified 09/21/21 11:24 Active Medications: Current Medications Acetaminophen (Acetaminophen 325 Mg Tablet) 650 mg PO Q6H PRN PRN Reason: Pain, Mild (Pain Scale 1-3) Albuterol Sulfate (Albuterol Sulfate (0.083%) 2.5 Mg/3 Ml Vial.Neb) 2.5 mg INHALE Q4H PRN PRN Reason: Shortness Of Breath Or Wheezing Albuterol Sulfate (Albuterol Sulfate 90 Mcg 8 Gm Inhaler) 2 puff INHALE Q4H PRN PRN Reason: Wheezing Atorvastatin Calcium (Atorvastatin Calcium 40 Mg Tablet) 40 mg PO BEDTIME [facility] Bumetanide (Bumetanide 1 Mg Tablet) 2 mg PO BIDWM OPAL; Protocol Clopidogrel Bisulfate (Clopidogrel Bisulfate 75 Mg Tablet) 75 mg PO BEDTIME [facility] Fluoxetine HCl (Fluoxetine Hcl Oral Solution 20 Mg/5 Ml Solution) 20 mg PO DAILY [facility] Heparin Sodium (Porcine) (Heparin Sodium,Porcine 5,000 Unit/Ml Vial) 5,000 unit SUBCUT Q12H [facility] Sodium Chloride (Ns) 1,000 mls @ 250 mls/hr IV .Q4H ONE Stop: 09/21/21 20:01 Last Admin: 09/21/21 16:25 Dose: 250 mls/hr Documented by: Ceftriaxone Sodium 1 gm/ (Sodium Chloride) 50 mls @ 100 mls/hr IV Q24H [facility] Last Admin: 09/21/21 17:50 Dose: 100 mls/hr Documented by: Isosorbide Mononitrate (Isosorbide Mononitrate 30 Mg Tab.Er.24h) 30 mg PO DAILY OPAL; Protocol Loperamide HCl (Loperamide Hcl Oral Liquid 2 Mg/15 Ml Liquid) 1 mg PO Q2D [facility] Loratadine (Loratadine 10 Mg Tablet) 10 mg PO DAILY PRN PRN Reason: Allergy Symptoms Lorazepam (Lorazepam 0.5 Mg Tablet) 0.5 mg PO DAILY PRN PRN Reason: Anxiety Metoprolol Tartrate (Metoprolol Tartrate 25 Mg Tablet) 25 mg PO BID [facility]; Protocol Midodrine (Midodrine Hcl 10 Mg Tablet) 10 mg PO ONCE ONE Stop: 09/21/21 17:52 Ondansetron HCl (Ondansetron Hcl 4 Mg/2 Ml Vial) 4 mg IVPUSH Q8H PRN PRN Reason: Nausea and Vomiting Pharmacy Consult (Consult Rx Perform Med Rec) 1 each MISCELLANE ONCE PRN PRN Reason: Consult order Quetiapine Fumarate (Quetiapine Fumarate 50 Mg Tablet) 50 mg PO BEDTIME [facility] Sodium Chloride (0.9 % Sodium Chloride Flush 3 Ml Syringe) 3 ml [facility] Vitamin D (Cholecalciferol (Vitamin D3) 25 Mcg Tablet) 50 mcg PO DAILY [facility] Home Medications Medication Instructions Recorded Confirmed Last Taken Type atorvastatin 40 mg tablet 40 mg PO BEDTIME 04/24/20 09/21/21 09/20/21 History cholecalciferol (vitamin D3) 50 50 mcg PO DAILY 04/24/20 09/21/21 09/21/21 History mcg (2,000 unit) tablet metoprolol tartrate 25 mg tablet 25 mg PO BID 04/24/20 09/21/21 09/21/21 History clopidogrel 75 mg tablet 1 tab PO BEDTIME 07/16/20 09/21/21 09/20/21 History fluoxetine 20 mg/5 mL (4 mg/mL) 5 ml PO DAILY 07/16/20 09/21/21 09/21/21 History oral solution lorazepam 0.5 mg tablet 0.5 mg PO DAILY PRN 07/16/20 09/21/21 Unknown History umeclidinium 62.5 mcg-vilanterol 1 puff INHALATION DAILY 07/16/20 09/21/2103/05 History 25 mcg/actuation powdr for inhalation (Anoro Ellipta) nystatin 100,000 unit/gram topical 1 appl TOPICAL BID PRN 01/05/21 09/21/21 Unknown History powder albuterol sulfate 2.5 mg INHALATION Q4H PRN 06/12/21 09/21/21 Unknown History loratadine 10 mg tablet 10 mg PO DAILY PRN 06/12/21 09/21/21 06/19/21 History midodrine 10 mg tablet See Rx Instructions .ROUTE .COMPLEX 06/12/21 09/21/21 06/17/21 History loperamide 1 mg/7.5 mL oral liquid 1 mg PO Q2D 07/13/21 09/21/21 07/12/21 History quetiapine 25 mg tablet 50 mg PO BEDTIME 07/13/21 09/21/21 09/20/21 History albuterol sulfate 90 mcg/actuation 2 puff INHALATION Q4H PRN 09/21/21 09/21/21 Unknown History aerosol inhaler (ProAir HFA) bumetanide 2 mg tablet 1 tab PO BID 09/21/21 09/21/21 09/21/21 History Physical Exam Vital Signs and Narrative: Vital Signs: Last Vital Signs Temp 101.8 F H 09/21/21 16:09 Pulse 96 09/21/21 17:41 Resp 18 09/21/21 17:41 BP 94/42 L 09/21/21 17:41 Pulse Ox 93 09/21/21 16:09 Oxygen Flow Rate 3 09/21/21 11:24 BMI result Body Mass Index 28.5 Const: Other: Constitutional : Alert, oriented, not in distress Neck : Normal inspection, Supple Cardiovascular : RRR, S1 S2, trace bilateral lower extremity edema Respiratory :? Fair bilateral air entry but decreased in the bases , 3 L of oxygen Gastrointestinal:? soft, lax, Normal bowel sounds, Non tender Skin : Warm, Dry Neurological : Alert & oriented to self and place, bed-bound with generalized weakness Results Labs CBC and Chem 7: 09/21/21 12:11 09/21/21 12:10 Labs: Laboratory Results - last 24 hr 09/21/21 09/21/21 09/21/21 11:28 12:10 12:10 MCV MCH MCHC RDW Plt Count MPV Immature Gran % (Auto) Neut % (Auto) Lymph % (Auto) [place] % (Auto) Eos % (Auto) Baso % (Auto) Lymph # (Auto) [place] # (Auto) Eos # (Auto) Baso # (Auto) Abs Immat Gran (auto) Absolute Neuts (auto) Absolute Nucleated RBC Nucleated RBC % (auto) Anion Gap 16 Estim Creat Clear Calc 6.8 Estimated GFR 5 POC Glucose 156 H Random Glucose 178 H Lactic Acid 2.4 H* Lactic Acid F/U @ 2Hr Calcium 8.1 L Total Bilirubin 1.8 H AST 26 ALT 21 Alkaline Phosphatase 172 H D Total Protein 6.6 Albumin 2.4 L Influenza Type A (PCR) Influenza Type B (PCR) RSV RNA Qual (PCR) SARS-CoV-2 RNA (RT-PCR) 09/21/21 09/21/21 09/21/21 12:11 12:11 14:32 MCV 96.9 MCH 32.1 MCHC 33.2 RDW 14.5 Plt Count 85 L D MPV 12.7 H Immature Gran % (Auto) 0.9 H Neut % (Auto) 81.5 H Lymph % (Auto) 6.8 L [place] % (Auto) 8.8 Eos % (Auto) 1.7 Baso % (Auto) 0.3 Lymph # (Auto) 0.7 L [place] # (Auto) 1.0 Eos # (Auto) 0.2 Baso # (Auto) 0.0 Abs Immat Gran (auto) 0.10 H Absolute Neuts (auto) 8.8 H Absolute Nucleated RBC 0.000 Nucleated RBC % (auto) 0.0 Anion Gap Estim Creat Clear Calc Estimated GFR POC Glucose Random Glucose Lactic Acid Lactic Acid F/U @ 2Hr 2.5 H* Calcium Total Bilirubin AST ALT Alkaline Phosphatase Total Protein Albumin Influenza Type A (PCR) NEGATIVE Influenza Type B (PCR) NEGATIVE RSV RNA Qual (PCR) NEGATIVE SARS-CoV-2 RNA (RT-PCR) NEGATIVE 09/21/21 15:52 MCV MCH MCHC RDW Plt Count MPV Immature Gran % (Auto) Neut % (Auto) Lymph % (Auto) [place] % (Auto) Eos % (Auto) Baso % (Auto) Lymph # (Auto) [place] # (Auto) Eos # (Auto) Baso # (Auto) Abs Immat Gran (auto) Absolute Neuts (auto) Absolute Nucleated RBC Nucleated RBC % (auto) Anion Gap Estim Creat Clear Calc Estimated GFR POC Glucose 109 Random Glucose Lactic Acid Lactic Acid F/U @ 2Hr Calcium Total Bilirubin AST ALT Alkaline Phosphatase Total Protein Albumin Influenza Type A (PCR) Influenza Type B (PCR) RSV RNA Qual (PCR) SARS-CoV-2 RNA (RT-PCR) Imaging Radiologist's Impressions: Impressions Chest X-Ray 09/21/21 12:30 IMPRESSION: Diffuse increased interstitial markings are nonspecific, but represents interval decrease from the previous study. This could represent chronic interstitial changes however residual mild infectious/inflammatory process cannot be excluded. Assessment and Plan (1) Acute UTI: Status: Acute (2) ESRD (end stage renal disease): Status: Acute (3) Sepsis: Status: Acute (4) Hyponatremia: Status: Acute (5) Hyperkalemia: Status: Acute Plan A 71 years old lady with PMH of HTN, HLD, ESRD on HD, diastolic CHF, diabetes, COPD, bipolar, bed-bound, chronic hypoxic failure on O2 at home, among others who presents to the hospital for reported fever and weakness. Sepsis Has fever, tachycardia and lactic acidosis Likely source is urine Pending cultures Start ceftriaxone Follow lactic acid Hyperkalemia, hyponatremia ESRD on HD Give Lokelma for hyperkalemia Plan to do dialysis tomorrow Nephrology consult Hypertension Continue metoprolol and Imdur ? Anemia of chronic dz H/H stable Chronic respiratory failure/COPD Continue 2-3L home O2 CAD Continue Lopressor, plavix Continue statin Mood Resume fluoxetine, seroquel DVT PPX Heparin Quality Stroke Does the patient have a stroke diagnosis?: No VTE Prior VTE?: No VTE Risk Level:: Medical - moderate - high VTE Device Contraindication: Treatment Not Indicated VTE Drug Contraindication: N/A - Med Ordered
--- NOTE | 2021-09-21 18:49 | PC.NURSE ---
Addendum entered by Eveline Herrera 09/21/21 21:11: Report given to ISSAC Mckee Addendum entered by Eveline Herrera 09/21/21 20:29: Dr. Ramos ordered not to given metoprolol due to pt BP. Original Note: Report received from ISSAC Quiros. pt is alert, notice to be tachy in the monitor. resting in bed.
[2021-09-21] MEDS: Midodrine HCl 10 MG TABLET PO (19:22)
[2021-09-21 19:27] LABS: ~Lactic Acid-LAB USE ONLY 3.4 mmol/L (0.5-2.0)
[2021-09-21] MEDS: Heparin Sodium,Porcine 5,000 UNIT/ML VIAL 5000 UNIT SUBCUT (20:28)
[2021-09-21] MEDS: Atorvastatin Calcium 40 MG TABLET PO (20:28)
[2021-09-21] MEDS: QUEtiapine Fumarate 50 MG TABLET PO (20:28)
[2021-09-21] MEDS: Clopidogrel Bisulfate 75 MG TABLET PO (20:28)
--- NOTE | 2021-09-21 21:34 | MHC.CM.PN ---
CM met with patient with medical front desk specialist, as pt is Polish speaking. Pt is poor historian. Cannot tell CM her address, just that she lives in [place] with her daughter, Keshia Arellano. Keshia is alternate HCP. HCP #1/daughter Paulina Powers ([phone]). Paulina tells CM that her Keshia's telephone number has been changed ([phone]). Pt lives at [address] [place] [address]. Paulina confirms that PCP is Dr. Loya. Pt attends dialysis at [facility] in [place] on Monday, and Monday. Pt has a hospital bed, a wheelchair and a fidel lift. Pt is bedbound. Pt uses 2L nasal oxygen at home 05/12. Pt has 3 [employer]'s-56 hours/week. Pt Vax/boosted with [employer] ( 06/25/20, 08/06/20, 04/02/21). Paulina tells CM that the family expects patient to go home with existing services at discharge. Will need BLS transportation. CM to follow for d/c needs.
--- NOTE | 2021-09-21 22:31 | PC.NURSE ---
Peg tube intact,mid upper abdomen
[2021-09-22] VITALS (7 sets, daily range): BP systolic 82–129; BP diastolic 40–65; PULSE 70–145; RESP 17–24; TEMP 36.1–36.8; O2SAT 91–100
--- NOTE | 2021-09-22 | ECG_ITS ---
Test Reason : cp Blood Pressure : / mmHG Vent. Rate : 140 BPM Atrial Rate : 000 BPM P-R Int : 000 ms QRS Dur : 082 ms QT Int : 300 ms P-R-T Axes : 000 034 156 degrees QTc Int : 458 ms Supraventricular tachycardia Nonspecific ST and T wave abnormality Abnormal ECG When compared with ECG of 22-SEP-2021 15:26, Supraventricular tachycardia has replaced Sinus tachycardia ST less depressed in Anterolateral leads T wave inversion no longer evident in Inferior leads T wave inversion no longer evident in Anterior leads Referred By: Bernie Ricks Electronically Signed By:ARTURO ALDANA MD
[2021-09-22] MEDS: 0.9 % Sodium Chloride Flush 3 ML SYRINGE IVFLUSH ×3 (00:54→16:00)
[2021-09-22 05:47] LABS: Hematocrit 36.4 % (37.0-47.0); Hemoglobin 11.9 g/dl (12.0-16.0); Mean Corpuscular HGB Conc 32.7 g/dl (31.0-35.0); Mean Corpuscular Hemoglobin 32.3 pg (27.0-33.0); Mean Corpuscular Volume 98.9 fL (80.0-98.0); Red Blood Count 3.68 X10*6/uL (4.20-5.50); Red Cell Distribution Width 14.8 % (11.0-16.0)
[2021-09-22 05:49] LABS: Platelet Count 63 X10*3/uL (160-400)
[2021-09-22 06:06] LABS: Anion Gap 20 (12-20); Blood Urea Nitrogen 75 mg/dL (9-16); Calcium 7.7 mg/dL (8.4-10.2); Carbon Dioxide 21 mmol/L (22-29); Chloride 96 mmol/L (96-108); Creatinine Clr Calc Pharmacy 6.2; Estimated Glomerular Filt Rate 5; Glucose Random 157 mg/dL (60-115); Potassium 5.3 mmol/L (3.3-5.1); Sodium 132 mmol/L (135-145)
[2021-09-22] MEDS: Heparin Sodium,Porcine 5,000 UNIT/ML VIAL 5000 UNIT SUBCUT ×2 (06:14→18:11)
[2021-09-22 07:15] LABS: Glucose, Whole Blood 135 mg/dL (60-115)
[2021-09-22] MEDS: Isosorbide Mononitrate 30 MG TAB.ER.24H PO (07:44)
[2021-09-22] MEDS: Bumetanide 1 MG TABLET 2 MG PO (07:44)
[2021-09-22] MEDS: Cholecalciferol (Vitamin D3) 25 MCG TABLET 50 MCG PO (07:44)
[2021-09-22] MEDS: Metoprolol Tartrate 25 MG TABLET PO (07:44)
[2021-09-22] MEDS: FLUoxetine HCl Oral Solution 20 MG/5 ML SOLUTION PO (07:45)
--- NOTE | 2021-09-22 10:57 | MHC.CLN ---
NUTRITION ESRD ON HEMODIALYSIS. DIET CHANGED PER DIALYSIS PARAMETERS: 2 GRAM SODIUM, LOW POTASSIUM, LOW PHOSPHORUS.
--- NOTE | 2021-09-22 12:19 | P.PNIM_ITS ---
Subjective Subjective Date of Service: 09/22/21 Interval History: Seen this morning feels much better with no more fever Her burning urination also improved Plan to do dialysis today No other overnight events Review of Systems No more fever, chills but still feeling generalized weakness No chest pain, palpitation No shortness of breath or coughing No abdominal pain, nausea or vomiting Report burning urination No any rash or wounds Physical Exam Vital Signs: Vital Signs: Last Vital Signs Temp 97.0 F 09/22/21 07:30 Pulse 114 H 09/22/21 07:30 Resp 18 09/22/21 07:30 BP 129/56 L 09/22/21 07:30 Pulse Ox 91 L 09/22/21 07:30 Oxygen Flow Rate 3 09/21/21 11:24 BMI result Body Mass Index 28.5 Const: Other: Constitutional : Alert, oriented, not in distress Neck : Normal inspection, Supple Cardiovascular : RRR, S1 S2, trace bilateral lower extremity edema Respiratory :? Fair bilateral air entry but decreased in the bases , 3 L of oxygen Gastrointestinal:? soft, lax, Normal bowel sounds, Non tender Skin : Warm, Dry Neurological : Alert & oriented to self and place, bed-bound with generalized weakness Objective Data Active Medications Acetaminophen (Acetaminophen 325 Mg Tablet) 650 mg PO Q6H PRN PRN Reason: Pain, Mild (Pain Scale 1-3) Albuterol Sulfate (Albuterol Sulfate (0.083%) 2.5 Mg/3 Ml Vial.Neb) 2.5 mg INHALE Q4H PRN PRN Reason: Shortness Of Breath Or Wheezing Albuterol Sulfate (Albuterol Sulfate 90 Mcg 8 Gm Inhaler) 2 puff INHALE Q4H PRN PRN Reason: Wheezing Atorvastatin Calcium (Atorvastatin Calcium 40 Mg Tablet) 40 mg PO BEDTIME [facility] Last Admin: 09/21/21 20:28 Dose: 40 mg Documented by: ARTHUR-JOSEICL Bumetanide (Bumetanide 1 Mg Tablet) 2 mg PO BIDWM [facility]; Protocol Last Admin: 09/22/21 07:44 Dose: 2 mg Documented by: MILDRED Clopidogrel Bisulfate (Clopidogrel Bisulfate 75 Mg Tablet) 75 mg PO BEDTIME [facility] Last Admin: 09/21/21 20:28 Dose: 75 mg Documented by: ARTHUR-JOSEICL Fluoxetine HCl (Fluoxetine Hcl Oral Solution 20 Mg/5 Ml Solution) 20 mg PO DAILY [facility] Last Admin: 09/22/21 07:45 Dose: 20 mg Documented by: MILDRED Heparin Sodium (Porcine) (Heparin Sodium,Porcine 5,000 Unit/Ml Vial) 5,000 unit SUBCUT Q12H [facility] Last Admin: 09/22/21 06:14 Dose: 5,000 unit Documented by: ANGELA Ceftriaxone Sodium 1 gm/ (Sodium Chloride) 50 mls @ 100 mls/hr IV Q24H [facility] Last Infusion: 09/21/21 21:47 Dose: 0 mls/hr Documented by: DAVID Isosorbide Mononitrate (Isosorbide Mononitrate 30 Mg Tab.Er.24h) 30 mg PO DAILY [facility]; Protocol Last Admin: 09/22/21 07:44 Dose: 30 mg Documented by: MILDRED Loperamide HCl (Loperamide Hcl Oral Liquid 2 Mg/15 Ml Liquid) 1 mg PO Q2D [facility] Loratadine (Loratadine 10 Mg Tablet) 10 mg PO DAILY PRN PRN Reason: Allergy Symptoms Lorazepam (Lorazepam 0.5 Mg Tablet) 0.5 mg PO DAILY PRN PRN Reason: Anxiety Metoprolol Tartrate (Metoprolol Tartrate 25 Mg Tablet) 25 mg PO BID [facility]; Protocol Last Admin: 09/22/21 07:44 Dose: 25 mg Documented by: MILDRED Ondansetron HCl (Ondansetron Hcl 4 Mg/2 Ml Vial) 4 mg IVPUSH Q8H PRN PRN Reason: Nausea and Vomiting Pharmacy Consult (Consult Rx Perform Med Rec) 1 each MISCELLANE ONCE PRN PRN Reason: Consult order Quetiapine Fumarate (Quetiapine Fumarate 50 Mg Tablet) 50 mg PO BEDTIME [facility] Last Admin: 09/21/21 20:28 Dose: 50 mg Documented by: ARTHUR-ANICL Sodium Chloride (0.9 % Sodium Chloride Flush 3 Ml Syringe) 3 ml IVFLUSH QSHIFT [facility] Last Admin: 09/22/21 07:57 Dose: 3 ml Documented by: MILDRED Vitamin D (Cholecalciferol (Vitamin D3) 25 Mcg Tablet) 50 mcg PO DAILY [facility] Last Admin: 09/22/21 07:44 Dose: 50 mcg Documented by: MILDRED Labs CBC & Chem 7: 09/22/21 05:26 09/22/21 05:26 Labs: Laboratory Results - last 24 hr 09/21/21 09/21/21 09/21/21 12:10 12:10 12:11 MCV 96.9 MCH 32.1 MCHC 33.2 RDW 14.5 Plt Count 85 L D MPV 12.7 H Immature Gran % (Auto) 0.9 H Neut % (Auto) 81.5 H Lymph % (Auto) 6.8 L [place] % (Auto) 8.8 Eos % (Auto) 1.7 Baso % (Auto) 0.3 Lymph # (Auto) 0.7 L [place] # (Auto) 1.0 Eos # (Auto) 0.2 Baso # (Auto) 0.0 Abs Immat Gran (auto) 0.10 H Absolute Neuts (auto) 8.8 H Absolute Nucleated RBC 0.000 Nucleated RBC % (auto) 0.0 Anion Gap 16 Estim Creat Clear Calc 6.8 Estimated GFR 5 POC Glucose Random Glucose 178 H Lactic Acid 2.4 H* Lactic Acid F/U @ 2Hr Lactic Acid F/U @ 4Hr Calcium 8.1 L Total Bilirubin 1.8 H AST 26 ALT 21 Alkaline Phosphatase 172 H D Total Protein 6.6 Albumin 2.4 L Influenza Type A (PCR) Influenza Type B (PCR) RSV RNA Qual (PCR) SARS-CoV-2 RNA (RT-PCR) 09/21/21 09/21/21 09/21/21 12:11 14:32 15:52 MCV MCH MCHC RDW Plt Count MPV Immature Gran % (Auto) Neut % (Auto) Lymph % (Auto) [place] % (Auto) Eos % (Auto) Baso % (Auto) Lymph # (Auto) [place] # (Auto) Eos # (Auto) Baso # (Auto) Abs Immat Gran (auto) Absolute Neuts (auto) Absolute Nucleated RBC Nucleated RBC % (auto) Anion Gap Estim Creat Clear Calc Estimated GFR POC Glucose 109 Random Glucose Lactic Acid Lactic Acid F/U @ 2Hr 2.5 H* Lactic Acid F/U @ 4Hr Calcium Total Bilirubin AST ALT Alkaline Phosphatase Total Protein Albumin Influenza Type A (PCR) NEGATIVE Influenza Type B (PCR) NEGATIVE RSV RNA Qual (PCR) NEGATIVE SARS-CoV-2 RNA (RT-PCR) NEGATIVE 09/21/21 09/22/21 09/22/21 18:52 05:26 05:26 MCV 98.9 H MCH 32.3 MCHC 32.7 RDW 14.8 Plt Count 63 L D MPV 13.0 H Immature Gran % (Auto) Neut % (Auto) Lymph % (Auto) [place] % (Auto) Eos % (Auto) Baso % (Auto) Lymph # (Auto) [place] # (Auto) Eos # (Auto) Baso # (Auto) Abs Immat Gran (auto) Absolute Neuts (auto) Absolute Nucleated RBC 0.000 Nucleated RBC % (auto) 0.0 Anion Gap 20 Estim Creat Clear Calc 6.2 Estimated GFR 5 POC Glucose Random Glucose 157 H Lactic Acid Lactic Acid F/U @ 2Hr Lactic Acid F/U @ 4Hr 3.4 H* Calcium 7.7 L Total Bilirubin AST ALT Alkaline Phosphatase Total Protein Albumin Influenza Type A (PCR) Influenza Type B (PCR) RSV RNA Qual (PCR) SARS-CoV-2 RNA (RT-PCR) 09/22/21 07:06 MCV MCH MCHC RDW Plt Count MPV Immature Gran % (Auto) Neut % (Auto) Lymph % (Auto) [place] % (Auto) Eos % (Auto) Baso % (Auto) Lymph # (Auto) [place] # (Auto) Eos # (Auto) Baso # (Auto) Abs Immat Gran (auto) Absolute Neuts (auto) Absolute Nucleated RBC Nucleated RBC % (auto) Anion Gap Estim Creat Clear Calc Estimated GFR POC Glucose 135 H Random Glucose Lactic Acid Lactic Acid F/U @ 2Hr Lactic Acid F/U @ 4Hr Calcium Total Bilirubin AST ALT Alkaline Phosphatase Total Protein Albumin Influenza Type A (PCR) Influenza Type B (PCR) RSV RNA Qual (PCR) SARS-CoV-2 RNA (RT-PCR) Microbiology Microbiology Results: Microbiology 09/21/21 12:11 Blood Culture - Preliminary Blood - Venous Staphylococcus aureus 09/21/21 15:33 Blood Culture - Final Blood - Venous 09/21/21 12:11 Blood Culture - Final Blood - Venous 09/21/21 15:40 Blood Culture - Preliminary Blood - Venous Prelim: GPC Gram Stain only Assessment and Plan (1) Hyperkalemia: Status: Acute (2) Hyponatremia: Status: Acute (3) Sepsis: Status: Acute (4) Acute UTI: Status: Acute Plan A 71 years old lady with PMH of HTN, HLD, ESRD on HD, diastolic CHF, diabetes, COPD, bipolar, bed-bound, chronic hypoxic failure on O2 at home, among others who presents to the hospital for reported fever and weakness. Sepsis , resolved 2/2 UTI? Has fever, tachycardia and lactic acidosis with burning urination and no other source of infection Lactic acidosis likely related to being ESRD rather than severe sepsis Likely source is urine, sample got lost in the emergency Continue ceftriaxone day 2 Hyperkalemia, hyponatremia ESRD on HD Give Lokelma for hyperkalemia Plan to do dialysis tomorrow Nephrology consult Hypertension Continue metoprolol and Imdur ? Anemia of chronic dz H/H stable Chronic respiratory failure/COPD Continue 2-3L home O2 CAD Continue Lopressor, plavix Continue statin Mood Resume fluoxetine, seroquel DVT PPX Heparin Quality Stroke Does the patient have a stroke diagnosis?: No VTE Prior VTE?: No VTE Risk Level:: Medical - moderate - high VTE Device Contraindication: Treatment Not Indicated VTE Drug Contraindication: N/A - Med Ordered
--- NOTE | 2021-09-22 13:12 | PM.CNNEP ---
History of Present Illness Reason for Consult Consult date: 09/22/21 Reason for consult: ESRD on HD Chief Complaint Chief complaint: Fever, weakness History of Present Illness Narrative: 69 y/o ESRD TTS via left sided Permcath, HTN, diastolic CHF, T2DM, COPD, chronic hypoxic respiratory failure on home O2, BPD, bed-bound, who presented from dialysis unit on 09/21 for increased temperature and reported to be hypoxic. In the emergency she was noticed to be febrile with tachycardia and elevated lactic acid but was never found hypoxic. Concerns about possible urine infection. We coordinated HD today (09/22/21) for missed session yesterday. ROS otherwise negative. Review of Systems Reports confusion Psychiatric: Reports confusion PMFSH Past Medical History Medical History Anemia Anemia Bacteremia due to Staphylococcus Bipolar disorder Chronic diarrhea Constipation COPD (chronic obstructive pulmonary disease) Diabetes Diastolic CHF Diastolic dysfunction Dislodged gastrostomy tube Diverticulitis Dyspnea ESRD (end stage renal disease) ESRF (end stage renal failure) Hyperlipidemia Hypertension Pneumonia Renal failure Thrombocytopenia Social History Social History Household Members: Family Household Members Other:: daughter Housing: House Do you presently have visiting nurse or other home services: Yes Unable to assess alcohol history related to: Unknown Alcohol intake: never Patient Tobacco Use Status: Former Tobacco user Years Smoked: many years Advance Directives Date on File: 06/12/20 service: No Current occupational status: retired and disabled Meds Allergies Allergy/AdvReac Type Severity Reaction Status Date / Time Penicillins Allergy Severe Anaphylaxis, Verified 09/21/21 11:24 hives acetaminophen [From TYLENOL] Allergy Unknown Unknown Verified 09/21/21 11:24 aspirin [ASPIRIN] Allergy Unknown rash, Verified 09/21/21 11:24 stomach upset diazepam [From VALIUM] Allergy Unknown RESP Verified 09/21/21 11:24 FAILURE penicillin V Allergy Unknown edema Verified 09/21/21 11:24 metformin [Metformin] AdvReac Mild DIARRHEA Verified 09/21/21 11:24 Active Medications: Current Medications Acetaminophen (Acetaminophen 325 Mg Tablet) 650 mg PO Q6H PRN PRN Reason: Pain, Mild (Pain Scale 1-3) Albuterol Sulfate (Albuterol Sulfate (0.083%) 2.5 Mg/3 Ml Vial.Neb) 2.5 mg INHALE Q4H PRN PRN Reason: Shortness Of Breath Or Wheezing Albuterol Sulfate (Albuterol Sulfate 90 Mcg 8 Gm Inhaler) 2 puff INHALE Q4H PRN PRN Reason: Wheezing Atorvastatin Calcium (Atorvastatin Calcium 40 Mg Tablet) 40 mg PO BEDTIME [facility] Last Admin: 09/21/21 20:28 Dose: 40 mg Documented by: Bumetanide (Bumetanide 1 Mg Tablet) 2 mg PO BIDWM [facility]; Protocol Last Admin: 09/22/21 07:44 Dose: 2 mg Documented by: Clopidogrel Bisulfate (Clopidogrel Bisulfate 75 Mg Tablet) 75 mg PO BEDTIME [facility] Last Admin: 09/21/21 20:28 Dose: 75 mg Documented by: Fluoxetine HCl (Fluoxetine Hcl Oral Solution 20 Mg/5 Ml Solution) 20 mg PO DAILY [facility] Last Admin: 09/22/21 07:45 Dose: 20 mg Documented by: Heparin Sodium (Porcine) (Heparin Sodium,Porcine 5,000 Unit/Ml Vial) 5,000 unit SUBCUT Q12H [facility] Last Admin: 09/22/21 06:14 Dose: 5,000 unit Documented by: Ceftriaxone Sodium 1 gm/ (Sodium Chloride) 50 mls @ 100 mls/hr IV Q24H [facility] Last Infusion: 09/21/21 21:47 Dose: Infused Documented by: Isosorbide Mononitrate (Isosorbide Mononitrate 30 Mg Tab.Er.24h) 30 mg PO DAILY [facility]; Protocol Last Admin: 09/22/21 07:44 Dose: 30 mg Documented by: Loperamide HCl (Loperamide Hcl Oral Liquid 2 Mg/15 Ml Liquid) 1 mg PO Q2D [facility] Loratadine (Loratadine 10 Mg Tablet) 10 mg PO DAILY PRN PRN Reason: Allergy Symptoms Lorazepam (Lorazepam 0.5 Mg Tablet) 0.5 mg PO DAILY PRN PRN Reason: Anxiety Metoprolol Tartrate (Metoprolol Tartrate 25 Mg Tablet) 25 mg PO BID [facility]; Protocol Last Admin: 09/22/21 07:44 Dose: 25 mg Documented by: Ondansetron HCl (Ondansetron Hcl 4 Mg/2 Ml Vial) 4 mg IVPUSH Q8H PRN PRN Reason: Nausea and Vomiting Pharmacy Consult (Consult Rx Perform Med Rec) 1 each MISCELLANE ONCE PRN PRN Reason: Consult order Pharmacy Consult (Consult Rx Vancomycin Dosing) 1 each MISCELLANE DAILY PRN PRN Reason: Consult order Quetiapine Fumarate (Quetiapine Fumarate 50 Mg Tablet) 50 mg PO BEDTIME [facility] Last Admin: 09/21/21 20:28 Dose: 50 mg Documented by: Sodium Chloride (0.9 % Sodium Chloride Flush 3 Ml Syringe) 3 ml IVFLUSH QSHIFT [facility] Last Admin: 09/22/21 07:57 Dose: 3 ml Documented by: Vitamin D (Cholecalciferol (Vitamin D3) 25 Mcg Tablet) 50 mcg PO DAILY [facility] Last Admin: 09/22/21 07:44 Dose: 50 mcg Documented by: Home Medications Medication Instructions Recorded Confirmed Last Taken Type atorvastatin 40 mg tablet 40 mg PO BEDTIME 04/24/20 09/21/21 09/20/21 History cholecalciferol (vitamin D3) 50 50 mcg PO DAILY 04/24/20 09/21/21 09/21/21 History mcg (2,000 unit) tablet metoprolol tartrate 25 mg tablet 25 mg PO BID 04/24/20 09/21/21 09/21/21 History clopidogrel 75 mg tablet 1 tab PO BEDTIME 07/16/20 09/21/21 09/20/21 History fluoxetine 20 mg/5 mL (4 mg/mL) 5 ml PO DAILY 07/16/20 09/21/21 09/21/21 History oral solution lorazepam 0.5 mg tablet 0.5 mg PO DAILY PRN 07/16/20 09/21/21 Unknown History umeclidinium 62.5 mcg-vilanterol 1 puff INHALATION DAILY 07/16/20 09/21/21 09/21/21 History 25 mcg/actuation powdr for inhalation (Anoro Ellipta) nystatin 100,000 unit/gram topical 1 appl TOPICAL BID PRN 01/05/21 09/21/21 Unknown History powder albuterol sulfate 2.5 mg INHALATION Q4H PRN 06/12/21 09/21/21 Unknown History loratadine 10 mg tablet 10 mg PO DAILY PRN 06/12/21 09/21/21 06/19/21 History midodrine 10 mg tablet See Rx Instructions .ROUTE .COMPLEX 06/12/21 09/21/21 06/17/21 History loperamide 1 mg/7.5 mL oral liquid 1 mg PO Q2D 07/13/21 09/21/21 07/12/21 History quetiapine 25 mg tablet 50 mg PO BEDTIME 07/13/21 09/21/21 09/20/21 History albuterol sulfate 90 mcg/actuation 2 puff INHALATION Q4H PRN 09/21/21 09/21/21 Unknown History aerosol inhaler (ProAir HFA) bumetanide 2 mg tablet 1 tab PO BID 09/21/21 09/21/21 09/21/21 History Physical Exam Vital Signs: Last Vital Signs Temp 97.0 F 09/22/21 07:30 Pulse 114 H 09/22/21 07:30 Resp 18 09/22/21 07:30 BP 129/56 L 09/22/21 07:30 Pulse Ox 91 L 09/22/21 07:30 Oxygen Flow Rate 3 09/21/21 11:24 BMI result Body Mass Index 28.5 Const General: cooperative, confusion and ill appearing Orientation/consciousness: confusion HEENT Head: Yes normocephalic and Yes atraumatic Neck Neck: Yes no JVD Resp Auscultation: crackles Cardio Jugular venous distension: no JVD Rate: bradycardic Rhythm: regular rhythm Heart sounds: S1 normal heart sound present and S2 normal heart sound present GI Auscultation: normal bowel sounds Neuro General: confusion Extrem General: Yes no clubbing, cyanosis or edema Results Lab Results Result Diagrams: 09/22/21 05:26 09/22/21 05:26 Lab results: Chemistry 09/21/21 09/22/21 12:10 05:26 Sodium 133 L 132 L Potassium 5.3 H D 5.3 H Carbon Dioxide 26 21 L BUN 67 H 75 H Creatinine 7.40 H* 8.10 H* Calcium 8.1 L 7.7 L Hematology 09/21/21 09/22/21 12:11 05:26 WBC 10.8 13.0 H Hgb 12.3 D 11.9 L Plt Count 85 L D 63 L D Assessment and Plan (1) Hyperkalemia: Status: Acute (2) Hyponatremia: Status: Acute (3) Acute on chronic respiratory failure with hypoxemia: Status: Acute (4) ESRD (end stage renal disease): Status: Acute PLAN: 1. ESRD: usu TTS but will provide treatment today as she missed Tx yesterday. Plan to repeat HD again tomorrow to get her back on schedule. Suggest following blood cultures given history of MSSA bacteremia. If BC's positive, PC will need to be removed. Thus far showing staph aureus from bc on 09/21. Suggest one additional HD session tomorow on 09/23 and then have permcath removed for source control. 2. SOB: UF as tolerated. 3. Anemia - H/H stable. VANESSA protocol 4. H/O MSSA line infection-BC's showing staph aureus. Consider ID input 5. Back/abd pain: ques etiol Low K diet Procedures Date of Service Date of Service: 09/22/21
--- NOTE | 2021-09-22 13:27 | PHA.PROG ---
Admission Date/Time: September 21, 2021 17:12 Indication: Bacteremia, GPC in blood Weight in k.6 kg Adjusted body weight in K.06 kg [place] body weight in K.7kg Obesity Dosing Indication % IBW: Serum Creatinine - Last 168 Hours 09/21/21 09/22/21 12:10 05:26 Creatinine 7.40 H* 8.10 H* Estimated CrCl and GFR - Last 168 Hours 09/21/21 09/22/21 12:10 05:26 Estim Creat Clear Calc 6.8 6.2 Estimated GFR 5 5 Vancomycin Loading Dose: 1250mg x1 dose (17mg/kg) Current Vancomycin Dosing Regimen: 500 mg tuthsa Vancomycin Monitoring using AUC goal of 400 - 600 range with trough as surrogate marker: dose based on level; AUC 468, TROUGH 17.2 Date and Time for next Vancomycin Level to be drawn: 09/23 @1400 Pharmacist Comments on Vancomycin Plan: Patient gets dialysis [facility] outpatient, but is getting dialysis today, 09/22 because she missed it. Loading dose based on 17 mg/kg to be safer due to age and renal function. Next trough is scheduled for 09/23 @1400, after dialysis 500 tuthsa in for a placeholder; we will dose based on trough Vancomycin dosing will take advantage of [employer] as a clinical decision support tool that uses Bayesian modeling to calculate individual patient's pharmacokinetic parameters and forecast the patient's drug concentration time course with the target goal AUC 24 range of 400 - 600 mg/L/hr.
--- NOTE | 2021-09-22 15:26 | ECG_ITS ---
Test Reason : HYPOTENTION Blood Pressure : / mmHG Vent. Rate : 146 BPM Atrial Rate : 147 BPM P-R Int : 126 ms QRS Dur : 078 ms QT Int : 320 ms P-R-T Axes : 180 059 195 degrees QTc Int : 498 ms Sinus tachycardia Marked ST abnormality, possible inferior subendocardial injury Marked ST abnormality, possible anterolateral subendocardial injury Abnormal ECG When compared with ECG of 21-SEP-2021 11:28, ST now depressed in Anterolateral leads T wave inversion now evident in Inferior leads T wave inversion now evident in Anterolateral leads Referred By: Rafita Gomez Electronically Signed By:ARTURO ALDANA MD
--- NOTE | 2021-09-22 15:34 | PM.CCN ---
Critical Care Event Note Summary Date of Service: 09/22/21 Code activated: No Narrative: I was called to an RELATIONSHIP MANAGEMENT LEAD to see Mrs. Garry Shepard bec of hypotension and decreased responsiveness. Very briefly, this is a 71 yo woman with ESRF on HD. She has diastolic CHF, diabetes, COPD, bipolar, bed-bound, chronic hypoxic failure on O2 at home. She takes midodrine. Admitted yesterday for reported fever and weakness.? Had high temperature and hypoxemia at the dialysis center so was sent to the ED In the emergency she was noticed to be febrile with tachycardia and elevated lactic acid. Admitted w possible urosepsis. treatment. The patient underwent dialysis here and was returned to her room immed prior to the [employer]GEMENT LE[employer]. On my arrival, the patient is barely arousable, thready pulse, BP 60 or unobtainable. At dialysis, 0.9kg fluid was taken off. We immed started a liter bolus of saline through the permcath. The bolus went in over about 10 min. As the fluid was running in, her HR slowed and she became more awake. By the end of the liter, she was awake and responsive, with SBP 80. We then gave her 100cc 25% albumin. Impression: Hypotension most likely 2? hypovolemia in the setting of HD-dependent ESRD and diastolic dysfxn. I left the patient in the care of Dr. Ricks for further w/u and mx. This case had a high probability of a clinically significant, sudden, or life threatening deterioration of this patient's condition which required my full and direct attention, intervention and personal management. Critical care time: 30+ min. Critical Care Time (minutes): 30
--- NOTE | 2021-09-22 15:40 | P.CNID_ITS ---
History of Present Illness Data of Consult Service Date: 09/22/21 Requesting physician: Bernie Ricks Primary Care Provider: Jennifer Loya MD [facility] Reason for consult: bacteremia,fever She presents with fever for two days as well as fatigue. Left chest wall catheter shows slight haziness pink around area,no pus. She has gram positive cocci blood Review of Systems Review of Systems: Yes all other systems are reviewed and are negative PMFSH Past Medical History Medical History (Updated 09/22/21 @ 15:45 by Ana Aguila MD) Anemia Anemia Bacteremia due to Staphylococcus Bipolar disorder Chronic diarrhea Constipation COPD (chronic obstructive pulmonary disease) Diabetes Diastolic CHF Diastolic dysfunction Dislodged gastrostomy tube Diverticulitis Dyspnea ESRD (end stage renal disease) ESRF (end stage renal failure) Gram-positive bacteremia Hyperlipidemia Hypertension Pneumonia Renal failure Thrombocytopenia Family History Family history: reviewed and not pertinent Social History Social History Household Members: Family Household Members Other:: daughter Housing: House Do you presently have visiting nurse or other home services: Yes Unable to assess alcohol history related to: Unknown Alcohol intake: never Patient Tobacco Use Status: Former Tobacco user Years Smoked: many years Advance Directives Date on File: 06/12/20 service: No Current occupational status: retired and disabled Meds Allergies Allergy/AdvReac Type Severity Reaction Status Date / Time Penicillins Allergy Severe Anaphylaxis, Verified 09/21/21 11:24 hives acetaminophen [From TYLENOL] Allergy Unknown Unknown Verified 09/21/21 11:24 aspirin [ASPIRIN] Allergy Unknown rash, Verified 09/21/21 11:24 stomach upset diazepam [From VALIUM] Allergy Unknown RESP Verified 09/21/21 11:24 FAILURE penicillin V Allergy Unknown edema Verified 09/21/21 11:24 metformin [Metformin] AdvReac Mild DIARRHEA Verified 09/21/21 11:24 Active Medications: Current Medications Acetaminophen (Acetaminophen 325 Mg Tablet) 650 mg PO Q6H PRN PRN Reason: Pain, Mild (Pain Scale 1-3) Albuterol Sulfate (Albuterol Sulfate (0.083%) 2.5 Mg/3 Ml Vial.Neb) 2.5 mg INHALE Q4H PRN PRN Reason: Shortness Of Breath Or Wheezing Albuterol Sulfate (Albuterol Sulfate 90 Mcg 8 Gm Inhaler) 2 puff INHALE Q4H PRN PRN Reason: Wheezing Atorvastatin Calcium (Atorvastatin Calcium 40 Mg Tablet) 40 mg PO BEDTIME PENDING SALE TO [facility] Last Admin: 09/21/21 20:28 Dose: 40 mg Documented by: Bumetanide (Bumetanide 1 Mg Tablet) 2 mg PO BIDWM PENDING SALE TO [facility]; Protocol Last Admin: 09/22/21 07:44 Dose: 2 mg Documented by: Clopidogrel Bisulfate (Clopidogrel Bisulfate 75 Mg Tablet) 75 mg PO BEDTIME OPAL Last Admin: 09/21/21 20:28 Dose: 75 mg Documented by: Fluoxetine HCl (Fluoxetine Hcl Oral Solution 20 Mg/5 Ml Solution) 20 mg PO DAILY PENDING [facility] TO [facility] Last Admin: 09/22/21 07:45 Dose: 20 mg Documented by: Heparin Sodium (Porcine) (Heparin Sodium,Porcine 5,000 Unit/Ml Vial) 5,000 unit SUBCUT Q12H PENDING SALE TO [facility] Last Admin: 09/22/21 06:14 Dose: 5,000 unit Documented by: Ceftriaxone Sodium 1 gm/ (Sodium Chloride) 50 mls @ 100 mls/hr IV Q24H PENDING SALE TO [facility] Last Infusion: 09/21/21 21:47 Dose: Infused Documented by: Vancomycin HCl 1,250 mg/ (Sodium Chloride) 250 mls @ 166.667 mls/hr IV ONCE@1645 ONE Stop: 09/22/21 18:14 Vancomycin HCl 500 mg/ Sodium (Chloride) 110 mls @ 110 mls/hr IV TuThSa@1645 PENDING SALE TO [facility] Isosorbide Mononitrate (Isosorbide Mononitrate 30 Mg Tab.Er.24h) 30 mg PO DAILY PENDING SALE TO [facility]; Protocol Last Admin: 09/22/21 07:44 Dose: 30 mg Documented by: Loperamide HCl (Loperamide Hcl Oral Liquid 2 Mg/15 Ml Liquid) 1 mg PO Q2D PENDING SALE TO [facility] Loratadine (Loratadine 10 Mg Tablet) 10 mg PO DAILY PRN PRN Reason: Allergy Symptoms Lorazepam (Lorazepam 0.5 Mg Tablet) 0.5 mg PO DAILY PRN PRN Reason: Anxiety Metoprolol Tartrate (Metoprolol Tartrate 25 Mg Tablet) 25 mg PO BID PENDING [facility] TO [facility]; Protocol Last Admin: 09/22/21 07:44 Dose: 25 mg Documented by: Ondansetron HCl (Ondansetron Hcl 4 Mg/2 Ml Vial) 4 mg IVPUSH Q8H PRN PRN Reason: Nausea and Vomiting Pharmacy Consult (Consult Rx Perform Med Rec) 1 each MISCELLANE ONCE PRN PRN Reason: Consult order Pharmacy Consult (Consult Rx Vancomycin Dosing) 1 each MISCELLANE DAILY PRN PRN Reason: Consult order Quetiapine Fumarate (Quetiapine Fumarate 50 Mg Tablet) 50 mg PO BEDTIME PENDING SALE TO [facility] Last Admin: 09/21/21 20:28 Dose: 50 mg Documented by: Sodium Chloride (0.9 % Sodium Chloride Flush 3 Ml Syringe) 3 ml IVFLUSH QSHIFT PENDING SALE TO [facility] Last Admin: 09/22/21 07:57 Dose: 3 ml Documented by: Vitamin D (Cholecalciferol (Vitamin D3) 25 Mcg Tablet) 50 mcg PO DAILY PENDING SALE TO [facility] Last Admin: 09/22/21 07:44 Dose: 50 mcg Documented by: Home Medications Medication Instructions Recorded Confirmed Last Taken Type atorvastatin 40 mg tablet 40 mg PO BEDTIME 04/24/20 09/21/21 09/20/21 History cholecalciferol (vitamin D3) 50 50 mcg PO DAILY 04/24/20 09/21/21 09/21/21 History mcg (2,000 unit) tablet metoprolol tartrate 25 mg tablet 25 mg PO BID 04/24/20 09/21/21 09/21/21 History clopidogrel 75 mg tablet 1 tab PO BEDTIME 07/16/20 09/21/21 09/20/21 History fluoxetine 20 mg/5 mL (4 mg/mL) 5 ml PO DAILY 07/16/20 09/21/21 09/21/21 History oral solution lorazepam 0.5 mg tablet 0.5 mg PO DAILY PRN 07/16/20 09/21/21 Unknown History umeclidinium 62.5 mcg-vilanterol 1 puff INHALATION DAILY 07/16/20 09/21/21 09/21/21 History 25 mcg/actuation powdr for inhalation (Anoro Ellipta) nystatin 100,000 unit/gram topical 1 appl TOPICAL BID PRN 01/05/21 09/21/21 Unknown History powder albuterol sulfate 2.5 mg INHALATION Q4H PRN 06/12/21 09/21/21 Unknown History loratadine 10 mg tablet 10 mg PO DAILY PRN 06/12/21 09/21/21 06/19/21 History midodrine 10 mg tablet See Rx Instructions .ROUTE .COMPLEX 06/12/21 09/21/21 06/17/21 History loperamide 1 mg/7.5 mL oral liquid 1 mg PO Q2D 07/13/21 09/21/21 07/12/21 History quetiapine 25 mg tablet 50 mg PO BEDTIME 07/13/21 09/21/21 09/20/21 History albuterol sulfate 90 mcg/actuation 2 puff INHALATION Q4H PRN 09/21/21 09/21/21 Unknown History aerosol inhaler (ProAir HFA) bumetanide 2 mg tablet 1 tab PO BID 09/21/21 09/21/21 09/21/21 History Physical Exam Vital Signs: Vital Signs: Last Vital Signs Temp 97.0 F 09/22/21 07:30 Pulse 114 H 09/22/21 07:30 Resp 18 09/22/21 07:30 BP 129/56 L 09/22/21 07:30 Pulse Ox 91 L 09/22/21 07:30 Oxygen Flow Rate 3 09/21/21 11:24 BMI result Body Mass Index 28.5 Const: General: cooperative Eyes: General: appearance normal, both eyes and all related structures Pupils: Equal, round and reactive pupils present Resp: Effort & Inspection: normal respiratory effort Cardio: Rate: regular rate Rhythm: regular rhythm GI: Palpation (GI): Soft to palpation and Tenderness to palpation present (GI) Skin: General skin exam: no rashes or lesions noted Neuro: Cranial nerves: Yes Equal, round and reactive pupils present Results Labs CBC & Chem 7: 09/22/21 05:26 09/22/21 05:26 Labs: Short CBC 09/22/21 Range/Units 05:26 WBC 13.0 H (4.8-10.8) X10*3/uL Hgb 11.9 L (12.0-16.0) g/dl Hct 36.4 L (37.0-47.0) % Plt Count 63 L D (160-400) X10*3/uL BMP 09/22/21 05:26 Sodium 132 L Potassium 5.3 H Chloride 96 Carbon Dioxide 21 L BUN 75 H Creatinine 8.10 H* Calcium 7.7 L Microbiology Microbiology Results: Microbiology 09/21/21 12:11 Blood - Venous Blood Culture - Preliminary Staphylococcus aureus 09/21/21 15:33 Blood - Venous Blood Culture - Final 09/21/21 12:11 Blood - Venous Blood Culture - Final 09/21/21 15:40 Blood - Venous Blood Culture - Preliminary Prelim: GPC Gram Stain only Assessment and Plan (1) Gram-positive bacteremia: Status: Acute Possible urine or dialysis cath source Possible MRSA Plan Vancomycin 750 mg to 1 gram with HD. Await final culture. Discuss with renal removing catheter if urine culture negative or site looks concerning.
--- NOTE | 2021-09-22 15:52 | PC.NURSE ---
Patient's [place] nurses[place] with patient minimally responsive. Patient just returned from dialysis. found with low 02, low bp. rapid called, family at bedside, patientimproved with interventions.
[2021-09-22] MEDS: vancomycin HCL 1,250 MG in 0.9 % Sodium Chloride 250 ML 166.67 MG IV (16:00)
[2021-09-22] MEDS: Midodrine HCl 10 MG TABLET PO ×2 (16:00→21:42)
[2021-09-22 16:04] LABS: Glucose, Whole Blood 91 mg/dL (60-115)
--- NOTE | 2021-09-22 16:30 | P.CONCC_ITS ---
History of Present Illness Data of Consult Service Date: 09/22/21 Requesting physician: Bernie Ricks Primary Care Provider: Jennifer Loya MD HPI Reason for consult: Hypotension Please see my Critical Care Event note. [facility] Past Medical History Medical History (Updated 09/22/21 @ 15:45 by Ana Aguila MD) Anemia Anemia Bacteremia due to Staphylococcus Bipolar disorder Chronic diarrhea Constipation COPD (chronic obstructive pulmonary disease) Diabetes Diastolic CHF Diastolic dysfunction Dislodged gastrostomy tube Diverticulitis Dyspnea ESRD (end stage renal disease) ESRF (end stage renal failure) Gram-positive bacteremia Hyperlipidemia Hypertension Pneumonia Renal failure Thrombocytopenia Family History Family history: reviewed and not pertinent Social History Social History Household Members: Family Household Members Other:: daughter Housing: House Do you presently have visiting nurse or other home services: Yes Unable to assess alcohol history related to: Unknown Alcohol intake: never Patient Tobacco Use Status: Former Tobacco user Years Smoked: many years Advance Directives Date on File: 06/12/20 service: No Current occupational status: retired and disabled Meds Allergies Allergy/AdvReac Type Severity Reaction Status Date / Time Penicillins Allergy Severe Anaphylaxis, Verified 09/21/21 11:24 hives acetaminophen [From TYLENOL] Allergy Unknown Unknown Verified 09/21/21 11:24 aspirin [ASPIRIN] Allergy Unknown rash, Verified 09/21/21 11:24 stomach upset diazepam [From VALIUM] Allergy Unknown RESP Verified 09/21/21 11:24 FAILURE penicillin V Allergy Unknown edema Verified 09/21/21 11:24 metformin [Metformin] AdvReac Mild DIARRHEA Verified 09/21/21 11:24 Active Medications: Current Medications Acetaminophen (Acetaminophen 325 Mg Tablet) 650 mg PO Q6H PRN PRN Reason: Pain, Mild (Pain Scale 1-3) Albuterol Sulfate (Albuterol Sulfate (0.083%) 2.5 Mg/3 Ml Vial.Neb) 2.5 mg INHALE Q4H PRN PRN Reason: Shortness Of Breath Or Wheezing Albuterol Sulfate (Albuterol Sulfate 90 Mcg 8 Gm Inhaler) 2 puff INHALE Q4H PRN PRN Reason: Wheezing Atorvastatin Calcium (Atorvastatin Calcium 40 Mg Tablet) 40 mg PO BEDTIME OPAL Last Admin: 09/21/21 20:28 Dose: 40 mg Documented by: Bumetanide (Bumetanide 1 Mg Tablet) 2 mg PO BIDWM [facility]; Protocol Last Admin: 09/22/21 07:44 Dose: 2 mg Documented by: Clopidogrel Bisulfate (Clopidogrel Bisulfate 75 Mg Tablet) 75 mg PO BEDTIME [facility] Last Admin: 09/21/21 20:28 Dose: 75 mg Documented by: Fluoxetine HCl (Fluoxetine Hcl Oral Solution 20 Mg/5 Ml Solution) 20 mg PO DAILY [facility] Last Admin: 09/22/21 07:45 Dose: 20 mg Documented by: Heparin Sodium (Porcine) (Heparin Sodium,Porcine 5,000 Unit/Ml Vial) 5,000 unit SUBCUT Q12H [facility] Last Admin: 09/22/21 06:14 Dose: 5,000 unit Documented by: Ceftriaxone Sodium 1 gm/ (Sodium Chloride) 50 mls @ 100 mls/hr IV Q24H [facility] Last Infusion: 09/21/21 21:47 Dose: Infused Documented by: Vancomycin HCl 1,250 mg/ (Sodium Chloride) 250 mls @ 166.667 mls/hr IV ONCE@1645 ONE Stop: 09/22/21 18:14 Last Admin: 09/22/21 16:00 Dose: 166.67 mls/hr Documented by: Vancomycin HCl 500 mg/ Sodium (Chloride) 110 mls @ 110 mls/hr IV TuThSa@1645 [facility] Isosorbide Mononitrate (Isosorbide Mononitrate 30 Mg Tab.Er.24h) 30 mg PO DAILY [facility]; Protocol Last Admin: 09/22/21 07:44 Dose: 30 mg Documented by: Loperamide HCl (Loperamide Hcl Oral Liquid 2 Mg/15 Ml Liquid) 1 mg PO Q2D [facility] Loratadine (Loratadine 10 Mg Tablet) 10 mg PO DAILY PRN PRN Reason: Allergy Symptoms Lorazepam (Lorazepam 0.5 Mg Tablet) 0.5 mg PO DAILY PRN PRN Reason: Anxiety Metoprolol Tartrate (Metoprolol Tartrate 25 Mg Tablet) 25 mg PO BID [facility]; Protocol Last Admin: 09/22/21 07:44 Dose: 25 mg Documented by: Midodrine (Midodrine Hcl 10 Mg Tablet) 10 mg PO TIDWM [facility] Last Admin: 09/22/21 16:00 Dose: 10 mg Documented by: Ondansetron HCl (Ondansetron Hcl 4 Mg/2 Ml Vial) 4 mg IVPUSH Q8H PRN PRN Reason: Nausea and Vomiting Pharmacy Consult (Consult Rx Perform Med Rec) 1 each MISCELLANE ONCE PRN PRN Reason: Consult order Pharmacy Consult (Consult Rx Vancomycin Dosing) 1 each MISCELLANE DAILY PRN PRN Reason: Consult order Quetiapine Fumarate (Quetiapine Fumarate 50 Mg Tablet) 50 mg PO BEDTIME [facility] Last Admin: 09/21/21 20:28 Dose: 50 mg Documented by: Sodium Chloride (0.9 % Sodium Chloride Flush 3 Ml Syringe) 3 ml IVFLUSH QSHIFT [facility] Last Admin: 09/22/21 16:00 Dose: 3 ml Documented by: Vitamin D (Cholecalciferol (Vitamin D3) 25 Mcg Tablet) 50 mcg PO DAILY [facility] Last Admin: 09/22/21 07:44 Dose: 50 mcg Documented by: Home Medications Medication Instructions Recorded Confirmed Last Taken Type atorvastatin 40 mg tablet 40 mg PO BEDTIME 04/24/20 09/21/21 09/20/21 History cholecalciferol (vitamin D3) 50 50 mcg PO DAILY 04/24/20 09/21/21 09/21/21 History mcg (2,000 unit) tablet metoprolol tartrate 25 mg tablet 25 mg PO BID 04/24/20 09/21/21 09/21/21 History clopidogrel 75 mg tablet 1 tab PO BEDTIME 07/16/20 09/21/21 09/20/21 History fluoxetine 20 mg/5 mL (4 mg/mL) 5 ml PO DAILY 07/16/20 09/21/21 09/21/21 History oral solution lorazepam 0.5 mg tablet 0.5 mg PO DAILY PRN 07/16/20 09/21/21 Unknown History umeclidinium 62.5 mcg-vilanterol 1 puff INHALATION DAILY 07/16/20 09/21/21 09/21/21 History 25 mcg/actuation powdr for inhalation (Anoro Ellipta) nystatin 100,000 unit/gram topical 1 appl TOPICAL BID PRN 01/05/21 09/21/21 Unknown History powder albuterol sulfate 2.5 mg INHALATION Q4H PRN 06/12/21 09/21/21 Unknown History loratadine 10 mg tablet 10 mg PO DAILY PRN 06/12/21 09/21/2106/19/22 History midodrine 10 mg tablet See Rx Instructions .ROUTE .COMPLEX 06/12/21 09/21/21 06/17/21 History loperamide 1 mg/7.5 mL oral liquid 1 mg PO Q2D 07/13/21 09/21/21 07/12/21 Hi story quetiapine 25 mg tablet 50 mg PO BEDTIME 07/13/21 09/21/21 09/20/21 History albuterol sulfate 90 mcg/actuation 2 puff INHALATION Q4H PRN 09/21/21 09/21/21 Unknown History aerosol inhaler (ProAir HFA) bumetanide 2 mg tablet 1 tab PO BID 09/21/21 09/21/21 09/21/21 History Physical Exam Vital Signs: Vital Signs: Last Vital Signs Temp 97.4 F 09/22/21 15:52 Pulse 145 H 09/22/21 15:52 Resp 18 09/22/21 15:52 BP 107/65 09/22/21 15:52 Pulse Ox 100 09/22/21 15:52 Oxygen Flow Rate 3 09/21/21 11:24 BMI result Body Mass Index 28.5 Results Labs CBC & Chem 7: 09/22/21 05:26 09/22/21 05:26 Labs: Short CBC 09/22/21 Range/Units 05:26 WBC 13.0 H (4.8-10.8) X10*3/uL Hgb 11.9 L (12.0-16.0) g/dl Hct 36.4 L (37.0-47.0) % Plt Count 63 L D (160-400) X10*3/uL BMP 09/22/21 05:26 Sodium 132 L Potassium 5.3 H Chloride 96 Carbon Dioxide 21 L BUN 75 H Creatinine 8.10 H* Calcium 7.7 L Microbiology Microbiology Results: Microbiology 09/21/21 12:11 Blood - Venous Blood Culture - Preliminary Staphylococcus aureus 09/21/21 15:33 Blood - Venous Blood Culture - Final 09/21/21 12:11 Blood - Venous Blood Culture - Final 09/21/21 15:40 Blood - Venous Blood Culture - Preliminary Prelim: GPC Gram Stain only
[2021-09-22 17:15] LABS: Troponin-I High Sensitivity 45.5 ng/L (<3.5-17.0)
[2021-09-22] MEDS: cefTRIAXone sodium 1 GM in 0.9 % Sodium Chloride 50 ML IV (18:10)
[2021-09-22] MEDS: 0.9 % Sodium Chloride 1,000 ML 500 ML IVCONT (19:15)
--- NOTE | 2021-09-22 19:42 | P.PNCC_ITS ---
Critical Care Event Note Summary Date of Service: 09/22/21 Code activated: No Narrative: I was called back to see Mrs. Garry Shepard bec of tachycardia/? Afib and hypotension. See my Event note from earlier today. I neglected to mention that both sets of the patient's blood cultures grew Staph aureus at 10 hrs; no urine culture was sent. Note that the patient has a left sided perm cath through which she gets dialysis. The family tells me that the patient has been on dialysis for about 2 years. Initially, that was through an AV fistula that was placed in her right upper arm. That failed and about 6 months ago she had the left-sided PermCath placed. The family also told me that the patient lives at home with one of the children. She is bedbound. She eats a little bit and is able to communicate, but is no firebrand. She has DNR/DNI status. They told me that her physician(s) have talked to them about hospice. Subsequent to the [employer], Dr. Ricks put her on Midodrine 10mg tid. Later, the patient had an episode of SVT, per Dr. Ricks. I advised adenosine at the time, but I believe it broke spontaneously. Dr. Corrales asked me to see her again this evening because tachycardia and hypotension. I went up to the 3rd floor to see her. On her monitor, it looks like she is in sinus rhythm at a rate of about 100-110. Last blood pressure was 85/40, and prior to that 104/55. I did a bedside echo: ECHOCARDIOGRAM for hemodynamic monitoring: Image quality: Fair-good. Findings: During the echo, the patient was in SR, except for about a 5 sec run of what was either SVT or Afib. 1. Mild LVH. 2. Normal LV cavity size and systolic function, with no gross RWMA. EF at least 60%. 3. Normal RV size. 4. Atria not assessed. 5. AV is trileaflet with trace AI and no . I saw a mass like structure on the valve but cannot say what it is a true mass or an artifact. 6. MV normal morphology with no MR. 7. TV was not well visualized. Trace to 1+ TR, with CVD jet measuring 3.0 m/sec (gradient 36mm). 8. IVC very poorly visualized. Probably normal sized, with some insp collapse, but not certain. Notably, I see that her hemoglobin this morning before dialysis was 11.9, with her baseline being 9-10. Furthermore, her albumin level was 2.4. IMPRESSION: 1. End-stage renal disease on hemodialysis through a Permcath. 2. At least moderate protein calorie malnutrition 3. St aureus bacteremia. On vancomycin. The obvious problem is that she has a Permcath. If her blood cannot be sterilized, she'll need the Permcath removed, if the patient and family so chooses. 4. Hypotension. Etiology not certain, could be sepsis or hypovolemia or both. Either way, there is no reason to draw a lactic acid bec not only is she an impossible stick and we don't want to waste a vein, but the treatment will be the same: I'm not willing to give her a 30cc/kg bolus. I will give her another 200 cc of albumin over 2 hours. Also another dose of Midodrine tonight. She's already on appropriate abx, and she was recultured today. I spoke with the family about end-of-life issues and goals of care for at least half an hour. I think they have an excellent, practical, and very reasonable grasp of the situation. And their expectations are very reasonable. They asked me if I would recommend hospice. I suggested to them that it will be time for hospice when the burden of living becomes too much for her. It's clear to me that the family is ready for hospice whenever the patient is. They told me that she has already made her wishes (presumably about not suffering) made to them. While I was there, they asked her in a very reasonable fashion whether she wanted to keep going with the hospitalization and care, and she said yes, she was OK with it. At this time, it is safe and reasonable for the patient to stay on the medical service on the 3rd floor. Time: 70 min. Critical Care Time (minutes): 0
[2021-09-22 20:03] LABS: Magnesium 1.8 mg/dL (1.6-2.6)
[2021-09-22] MEDS: Albumin Human 25 % 100 ML IV ×2 (20:03→21:30)
--- NOTE | 2021-09-22 21:07 | HO.SEPSISX_ITS ---
Sepsis Bolus Exclusion Sepsis Bolus Exclusion This patient met severe sepsis criteria due to the following condition(s):: Hypo tension In my clinical judgement the administration of 30 ml/kg of crystalloid would be detrimental to this patient due to the patient's following conditions:: Stage III or IV Chronic Kidney Disease (GFR<30) and Concern for fluid overload Replace the 30 mls/kg with (*zero amount not acceptable): *Note: One of the vu must be documented Colloids amount given in mls:: 200
[2021-09-22] MEDS: Atorvastatin Calcium 40 MG TABLET PO (21:42)
[2021-09-22] MEDS: Clopidogrel Bisulfate 75 MG TABLET PO (21:42)
--- NOTE | 2021-09-22 23:30 | PM.EVENT ---
Event Note Date of Service: 09/23/21 Event Note: Elevated troponins: Patient denies any chest pain. Patient had an episode of hypotension and tachycardia to 140s; received albumin. Likely in the setting of reduced clearance/demand. Notified Cardiology. No heparin drip (thrombocytopenia, remote history of ICH). Echo ordered Hypotension: Patient blood pressure has been on the soft side. Rec patient is alert awake and able to communicate. Denies any chest pain, lightheadedness or dizziness. On supplemental oxygen. Extremities are warm and well perfused. Patient has been on mild a drain and receiving intermittent dose of albumin. Updated the plan of care with the family at bedside, explained about the critical nature of her current health status. Family mentioned that if she does not improve with current measures would be inclined towards hospice.
[2021-09-23] VITALS (10 sets, daily range): BP systolic 85–129; BP diastolic 39–64; PULSE 70–149; RESP 17–32; TEMP 36.2–37.3; O2SAT 94–98
[2021-09-23] MEDS: 0.9 % Sodium Chloride Flush 3 ML SYRINGE IVFLUSH ×4 (00:09→20:46)
[2021-09-23] MEDS: Albumin Human 25 % 50 ML 100 ML IV (01:15)
--- NOTE | 2021-09-23 03:40 | PC.NURSE ---
Addendum entered by Allie Mathis RN 09/23/21 05:33: At 4am, BP=85/44 H=at 90s, Dr. Ramos was informed, he said to give Midodrine early around 5am, med give and tolerated. Original Note: Pt seen at shift change around 1900 having RVR at 130s-140s and BP of 73/41, pt is awake but seen frail, verbally interactive to relatives in room and denies any pain nor any symptoms, pt put on trendelenberg position, 1L bolus of NSS given, MD came to bedside also ICU MD DR. Gomez came and did bedside ECHO, pt's prognosis was explained by same MD to relatives present, Albumin IV ordered, another IVline was needed as bolus is going on, Dr. Gomez said to use right arm for IV access with new IV successfully placed on the RFA, noted also with generalized bodyache sonam with touch or ROM, Critical troponin came = 268 at 2319 , Dr. Ramos was ,notified, SBP came up to 90s and converted back to SR at 90s. BP came down again around 12mn =85/43, Dr. Ramos was mde aware, MD came to see pt, ordered another Albumin IV, pt was repositioned and care rendered.
[2021-09-23] MEDS: Midodrine HCl 10 MG TABLET PO ×3 (05:24→17:37)
[2021-09-23] MEDS: Heparin Sodium,Porcine 5,000 UNIT/ML VIAL 5000 UNIT SUBCUT ×2 (06:16→17:37)
[2021-09-23 06:29] LABS: Hematocrit 24.1 % (37.0-47.0); Mean Corpuscular HGB Conc 33.2 g/dl (31.0-35.0); Mean Corpuscular Hemoglobin 32.3 pg (27.0-33.0); Mean Corpuscular Volume 97.2 fL (80.0-98.0); Mean Platelet Volume 13.6 fL (9.4-12.3); Red Blood Count 2.48 X10*6/uL (4.20-5.50); Red Cell Distribution Width 14.8 % (11.0-16.0); White Blood Count 7.8 X10*3/uL (4.8-10.8)
[2021-09-23 06:32] LABS: Platelet Count 55 X10*3/uL (160-400)
[2021-09-23 06:50] LABS: Anion Gap 14 (12-20); Blood Urea Nitrogen 22 mg/dL (9-16); Calcium 7.5 mg/dL (8.4-10.2); Carbon Dioxide 19 mmol/L (22-29); Chloride 104 mmol/L (96-108); Creatinine Clr Calc Pharmacy 15.4; Estimated Glomerular Filt Rate 14; Glucose Random 102 mg/dL (60-115); Potassium 3.7 mmol/L (3.3-5.1); Sodium 133 mmol/L (135-145)
--- NOTE | 2021-09-23 07:00 | CA_ITS ---
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 Hyperdynamic LV systolic function with grade 2 diastolic dysfunction next 2. Mildly dilated left atrium 3. Mild aortic stenosis 4. [id number] elevation of right ventricular systolic pressure with mildly elevated right atrial pressures 5. Small pericardial effusion more prominent near the left ventricle Findings Procedure Information Contrast agent, definity, is being given per protocol without apparent complications. Left Ventricle Normal left ventricular size, thickness, and systolic function. The visually estimated ejection fraction is >70%. Spectral Doppler is indicative of a pseudonormal filling pattern. E/E prime ratio is >15, consistent with elevated filling pressures. Evidence suggests grade II (moderate) diastolic dysfunction. Right Ventricle Normal right ventricular cavity size and systolic function. Atria The left atrium is mildly dilated. Interatrial shunt cannot be excluded. The right atrium is normal in size. Aortic Valve There is moderate calcification of the aortic valve. There is mild thickening of the aortic valve. There is mild aortic valve stenosis. There is no aortic valve regurgitation. Mitral Valve There is mild anterior and posterior mitral leaflet thickening. There is mild mitral annular calcification. There is trace mitral valve regurgitation. There is no mitral valve stenosis. Pulmonic Valve The pulmonic valve was not well visualized. Tricuspid Valve Likely normal tricuspid valve structure and function. There is mild tricuspid valve regurgitation. Mildly elevated right atrial pressure. Mild to moderate pulmonary hypertension is present. Great Vessels All visible segments of the aorta are normal in size. The pulmonary artery was not well visualized. Venous The inferior vena cava is normal in size and collapses greater than 50% with inspiration. Pericardium/Pleural There is a small loculated pericardial effusion overlying the left ventricle. Measurements 2D Linear Measurements IVSd: 0.96 0.6-0.9/0.6-1.0 cm LVIDd: 4.74 3.9-5.3/4.2-5.9 cm LVIDd Index: 2.62 2.4-3.2/2.2-3.1 cm/m2 LVIDs: 2.79 2.0-3.6 cm LVPWd: 0.87 0.7-1.1 cm LA Diam: 3.80 2.7-3.8/3.0-4.0 cm LAIDs Index: 2.10 1.5-2.3 cm/m2 LV Mass: 184.59 67-162/88-224 g LV Mass Index: 101.98 43-95/49-115 g/m2 LVOT Diam: 2.00 3.0+(-)1.3 cm Mitral Valve MV Pk E: 1.45 MV PK A: 0.88 MV Decel Time: 193.00 E/A: 1.70 E'Lateral: 7.51 E'Medial: 5.98 E/E' Med: 24.20 E/E' Lat: 19.30 PHT: 56.00 MVA PHT: 3.93 Decel [place]: 7.53 Aortic Valve AoV Pk Alirio: 2.48 AoV Mn Alirio: 1.59 AoV VTI: 0.46 AoV Pk Grad: 25.00 Aov Mn Grad: 11.00 LYUDMILA Cont.VTI: 1.63 LVOT LVOT Pk Alirio: 1.26 LVOT Mn Alirio: 0.75 LVOT VTI: 0.24 LVOT Pk Grad: 6.00 LVOT Mn Grad: 3.00 LVOT Diam: 2.00 LVOT Area: 3.14 Diastolic Function MV Pk E: 1.45 MV Pk A: 0.88 E/A: 1.70 E'Medial: 5.98 E/E' Med: 24.20 E' Laterial: 7.51 E/E' Lat: 19.30 Right Ventricle TAPSE (mm): 22.10 TVS' Alirio: 12.60 Tricuspid Valve TR Pk Alirio: 3.08 TR Pk Grad: 38.00 RA Press: 8.00 RVSP: 46.00 Great Vessels Aorta Sinus of Valsalva: 2.94 2.0-3.5 cm Ao Asc: 3.00 2.1-3.4 cm Ao Arch: 2.40 Updated in Other Vendor System with Status of Final Torin Feliz MD electronically signed on 09/23/2021 9:04:02 AM with status of Final
[2021-09-23 07:10] LABS: Glucose, Whole Blood 90 mg/dL (60-115)
[2021-09-23 07:23] LABS: Troponin-I High Sensitivity 417.6 ng/L (<3.5-17.0)
[2021-09-23] MEDS: Cholecalciferol (Vitamin D3) 25 MCG TABLET 50 MCG PO (07:31)
[2021-09-23] MEDS: FLUoxetine HCl Oral Solution 20 MG/5 ML SOLUTION PO (07:31)
[2021-09-23] MEDS: Loperamide HCl Oral Liquid 2 MG/15 ML LIQUID 1 MG PO (07:41)
--- NOTE | 2021-09-23 08:00 | ECG_ITS ---
Test Reason : f/u st depressions Blood Pressure : / mmHG Vent. Rate : 101 BPM Atrial Rate : 101 BPM P-R Int : 120 ms QRS Dur : 090 ms QT Int : 350 ms P-R-T Axes : -02 -02 044 degrees QTc Int : 453 ms Sinus tachycardia Nonspecific ST abnormality Abnormal ECG When compared with ECG of 22-SEP-2021 16:42, Non-specific change in ST segment in Inferior leads Referred By: Bernie Ricks Electronically Signed By:ARTURO ALDANA MD
[2021-09-23 08:55] LABS: Hematocrit 27.1 % (37.0-47.0)
--- NOTE | 2021-09-23 09:11 | HO.PM.IMPN ---
Subjective Subjective Date of Service: 09/24/21 Interval History: F/u on sepsis, bactereamia, Hypotension and hypoxia, sepsis Interval history: Following dialysis yesterday patient became hypotensive decrease responsiveness attributed to fluid removal from dialysis and was given additional IV, Albumin and assessed by ICU. She continued to have episodes of low BPs throughout the night along with episodes of tachycardia, AFIB.. BP is still borderline this morning but seems better.. She is more alert. Hematocrit has dropped from 37 on admision to 27 now, 24 earlier with no obvious sings of bleeding. 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 Neuro: motor grossly intact Psych: appropriate affect Objective Data Active Medications Acetaminophen (Acetaminophen 325 Mg Tablet) 650 mg PO Q6H PRN PRN Reason: Pain, Mild (Pain Scale 1-3) Albuterol Sulfate (Albuterol Sulfate (0.083%) 2.5 Mg/3 Ml Vial.Neb) 2.5 mg INHALE Q4H PRN PRN Reason: Shortness Of Breath Or Wheezing Albuterol Sulfate (Albuterol Sulfate 90 Mcg 8 Gm Inhaler) 2 puff INHALE Q4H PRN PRN Reason: Wheezing Atorvastatin Calcium (Atorvastatin Calcium 40 Mg Tablet) 40 mg PO BEDTIME [facility] Last Admin: 09/22/21 21:42 Dose: 40 mg Documented by: KELLEN Bumetanide (Bumetanide 1 Mg Tablet) 2 mg PO BIDWM [facility]; Protocol Last Admin: 09/22/21 07:44 Dose: 2 mg Documented by: MILDRED Clopidogrel Bisulfate (Clopidogrel Bisulfate 75 Mg Tablet) 75 mg PO BEDTIME [facility] Last Admin: 09/22/21 21:42 Dose: 75 mg Documented by: KELLEN Fluoxetine HCl (Fluoxetine Hcl Oral Solution 20 Mg/5 Ml Solution) 20 mg PO DAILY [facility] Last Admin: 09/23/21 07:31 Dose: 20 mg Documented by: BELEN Heparin Sodium (Porcine) (Heparin Sodium,Porcine 5,000 Unit/Ml Vial) 5,000 unit SUBCUT Q12H [facility] Last Admin: 09/23/21 06:16 Dose: 5,000 unit Documented by: KELLEN Ceftriaxone Sodium 1 gm/ (Sodium Chloride) 50 mls @ 100 mls/hr IV Q24H [facility] Last Infusion: 09/22/21 19:03 Dose: 0 mls/hr Documented by: JENI Vancomycin HCl 500 mg/ Sodium (Chloride) 110 mls @ 110 mls/hr IV [id number] [facility] Isosorbide Mononitrate (Isosorbide Mononitrate 30 Mg Tab.Er.24h) 30 mg PO DAILY [facility]; Protocol Last Admin: 09/22/21 07:44 Dose: 30 mg Documented by: MILDRED Loperamide HCl (Loperamide Hcl Oral Liquid 2 Mg/15 Ml Liquid) 1 mg PO Q2D [facility] Last Admin: 09/23/21 07:41 Dose: 1 mg Documented by: BELEN Loratadine (Loratadine 10 Mg Tablet) 10 mg PO DAILY PRN PRN Reason: Allergy Symptoms Lorazepam (Lorazepam 0.5 Mg Tablet) 0.5 mg PO DAILY PRN PRN Reason: Anxiety Metoprolol Tartrate (Metoprolol Tartrate 25 Mg Tablet) 25 mg PO BID [facility]; Protocol Last Admin: 09/22/21 21:50 Dose: Not Given Documented by: KELLEN Non-Admin Reason: BP too low Midodrine (Midodrine Hcl 10 Mg Tablet) 10 mg PO TIDWM [facility] Last Admin: 09/23/21 05:24 Dose: 10 mg Documented by: KELLEN Comments: to give early as per Dr. Ramos BP=86/39 HR=87 Ondansetron HCl (Ondansetron Hcl 4 Mg/2 Ml Vial) 4 mg IVPUSH Q8H PRN PRN Reason: Nausea and Vomiting Pharmacy Consult (Consult Rx Perform Med Rec) 1 each MISCELLANE ONCE PRN PRN Reason: Consult order Pharmacy Consult (Consult Rx Vancomycin Dosing) 1 each MISCELLANE DAILY PRN PRN Reason: Consult order Quetiapine Fumarate (Quetiapine Fumarate 50 Mg Tablet) 50 mg PO BEDTIME [facility] Last Admin: 09/22/21 21:51 Dose: Not Given Documented by: KELLEN Non-Admin Reason: pt had episode of unresponsiveness with low B Sodium Chloride (0.9 % Sodium Chloride Flush 3 Ml Syringe) 3 ml IVFLUSH QSHIFT [facility] Last Admin: 09/23/21 07:32 Dose: 3 ml Documented by: BELEN Vitamin D (Cholecalciferol (Vitamin D3) 25 Mcg Tablet) 50 mcg PO DAILY [facility] Last Admin: 09/23/21 07:31 Dose: 50 mcg Documented by: BELEN Labs CBC & Chem 7: 09/23/21 08:39 09/24/21 08:30 Labs: Laboratory Results - last 24 hr 09/22/21 09/22/21 09/22/21 05:26 05:26 15:56 MCV 98.9 H MCH 32.3 MCHC 32.7 RDW 14.8 Plt Count 63 L D MPV 13.0 H Absolute Nucleated RBC 0.000 Nucleated RBC % (auto) 0.0 Anion Gap 20 Estim Creat Clear Calc 6.2 Estimated GFR 5 POC Glucose 91 Random Glucose 157 H Calcium 7.7 L Magnesium 1.8 Troponin I High Sens Crossmatch 09/22/21 09/22/21 09/23/21 16:37 22:50 05:30 MCV 97.2 MCH 32.3 MCHC 33.2 RDW 14.8 Plt Count 55 L MPV 13.6 H Absolute Nucleated RBC 0.000 Nucleated RBC % (auto) 0.0 Anion Gap Estim Creat Clear Calc Estimated GFR POC Glucose Random Glucose Calcium Magnesium Troponin I High Sens 45.5 H D 268.0 H* D Crossmatch 09/23/21 09/23/21 09/23/21 05:30 05:30 07:06 MCV MCH MCHC RDW Plt Count MPV Absolute Nucleated RBC Nucleated RBC % (auto) Anion Gap 14 Estim Creat Clear Calc 15.4 Estimated GFR 14 POC Glucose 90 Random Glucose 102 Calcium 7.5 L Magnesium Troponin I High Sens 417.6 H* D Crossmatch 09/23/21 08:39 MCV MCH MCHC RDW Plt Count MPV Absolute Nucleated RBC Nucleated RBC % (auto) Anion Gap Estim Creat Clear Calc Estimated GFR POC Glucose Random Glucose Calcium Magnesium Troponin I High Sens Crossmatch See Detail Microbiology Microbiology Results: Microbiology 09/21/21 14:43 Urine Culture - Final Urine Catheterized - Straight Catheter 09/21/21 15:33 Blood Culture - Final Blood - Venous 09/21/21 15:40 Blood Culture - Final Blood - Venous Staphylococcus aureus 09/22/21 16:37 Blood Culture - Preliminary Blood - Venous Prelim: GPC Gram Stain only 09/21/21 12:11 Blood Culture - Final Blood - Venous Staphylococcus aureus 09/21/21 12:11 Blood Culture - Final Blood - Venous Assessment and Plan (1) Hyperkalemia: Status: Acute (2) Hyponatremia: Status: Acute (3) Sepsis: Status: Acute (4) Acute UTI: Status: Acute Plan A 71 years old lady with PMH of HTN, HLD, ESRD on HD, diastolic CHF, diabetes, COPD, bipolar, bed-bound, chronic hypoxic failure on O2 at home, among others who presents to the hospital for reported fever and weakness. Sepsis due to gram positive bacteremia likely line Sepsis and possible UTI - Continue Ceftriaxone and Vanco post dilaysis and follow culture sensitivity. -Eho this morning to rule out endocarditits -Episodes of hypotension not necessarly due to sepsis rather from fluid removal dialysis AFIB -Given Albumin and fluid overnight -ID following Acute on chronic respiratory failure--likely multifactoria from COPD, anemia, sepsis -contin O2, breathing treatment, she seems to have some difficulty with breathing at present, trial of morphine PRN for respiratory distress. PAF--at present rate controlled, hold anticoagulation in light of singnificant anemia Hyperkalemia--resolved hyponatremia--chronic at 133, monitor Hypertension Continue metoprolol and Imdur ? Anemia of chronic dz--wth signficant acute drop which maybe contributing to low BPs -Transfuse 1 unt -check occult blood CAD Continue Lopressor (hold if BP is low), plavix Continue statin Mood Resume fluoxetine, seroquel Need for inaptient: Sepsis, Hypotension that need fluid management close monitoring and monitoring of response, has acute on chronic resp failure high O2 requirement that she cannot manage at home right now. Prognosis is poor and in constant discussion with family and they would be prepare to make her hospice if not improve. ICU is aware of the patient I discussed care wth family daughters, sons and they concluded that in the end even that she continues to worsen they would want her going home with hospice in the next 24 to 48 hours. Blood cultures continues to be positive, Nephro is considering taken out port tomorrow after dialysis. Will give additional vanco today. morphine for respiratory distress Quality Stroke Does the patient have a stroke diagnosis?: No VTE Prior VTE?: No VTE Risk Level:: Medical - moderate - high VTE Device Contraindication: Treatment Not Indicated VTE Drug Contraindication: N/A - Med Ordered
[2021-09-23 11:40] LABS: Glucose, Whole Blood 140 mg/dL (60-115)
[2021-09-23] MEDS: Acetaminophen 325 MG TABLET 650 MG PO ×2 (12:26→17:56)
--- NOTE | 2021-09-23 12:38 | PM.CNCAR ---
History of Present Illness History of Present Illness Date of Service: 09/23/21 Requesting physician: Bernie Ricks Consult reason: hypotension and other ( NSTEMI) Chief complaint: Fever, weakness Narrative: I was requested to see Liliam in cardiology consultation today because of elevated troponins with significant EKG changes suggestive ischemia with hypotension after dialysis. 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 Patient admitted with sepsis from Gram-positive bacteremia and possible UTI currently getting antibiotics. Patient yesterday became unresponsive after dialysis with drop in her blood pressure. Simultaneously got tachycardia can EKG was suggestive of diffuse ischemia. Subsequently she has remained with borderline and soft blood pressure. She complains of chest pressure at current time. She also appears to have increased work of breathing. Her echocardiogram this morning showed hyperdynamic LV ejection fraction greater than 70% with mild aortic stenosis. Cardiology consult was call for above reasons and subsequently noting to have diffuse ischemia on EKG +positive troponin suggestive of myocardial injury. Patient's blood pressure is borderline elevated. She has developed sinus tachycardia, persistent. Yesterday at SVT at 140 beats per minute. This has now seems to have resolved. In terms of medication she is getting midodrine to maintain a blood pressure. She is also on isosorbide and metoprolol. As per the daughter she has never had prior coronary artery disease of workup for the same. Review of Systems Constitutional: Constitutional: Reports fatigue and Reports weakness Eyes: Eyes: Reports no additional eye complaints Cardiovascular: Cardiovascular: Reports chest pain, Denies pedal edema, Denies leg edema, Reports Loss of Consciousness, Denies palpitations and Reports dyspnea Respiratory: Respiratory: Reports no additional respiratory complaints and Reports dyspnea Gastrointestinal: Gastrointestinal: Reports no additional gastrointestinal complaints Genitourinary: Genitourinary: Reports no additional female genitourinary complaints Musculoskeletal: Musculoskeletal: Reports no additional musculoskeletal complaints Neurologic: Reports system reviewed and no additional complaints, except as documented and Reports weakness Endocrine: Endocrine: Reports fatigue and Denies palpitations [facility] Past Medical History Medical History (Updated 09/23/21 @ 12:46 by Torin Feliz MD) Anemia Anemia Bacteremia due to Staphylococcus Bipolar disorder Chronic diarrhea Constipation COPD (chronic obstructive pulmonary disease) Diabetes Diastolic CHF Diastolic dysfunction Dislodged gastrostomy tube Diverticulitis Dyspnea ESRD (end stage renal disease) ESRF (end stage renal failure) Gram-positive bacteremia Hyperlipidemia Hypertension Pneumonia Renal failure Thrombocytopenia Family History Family history: reviewed and not pertinent Social History Social History Household Members: Family Household Members Other:: daughter Housing: House Do you presently have visiting nurse or other home services: Yes Unable to assess alcohol history related to: Unknown Alcohol intake: never Patient Tobacco Use Status: Former Tobacco user Years Smoked: many years Advance Directives Date on File: 06/12/20 service: No Current occupational status: retired and disabled Meds Allergies Allergy/AdvReac Type Severity Reaction Status Date / Time Penicillins Allergy Severe Anaphylaxis, Verified 09/21/21 11:24 hives acetaminophen [From TYLENOL] Allergy Unknown Unknown Verified 09/21/21 11:24 aspirin [ASPIRIN] Allergy Unknown rash, Verified 09/21/21 11:24 stomach upset diazepam [From VALIUM] Allergy Unknown RESP Verified 09/21/21 11:24 FAILURE penicillin V Allergy Unknown edema Verified 09/21/21 11:24 metformin [Metformin] AdvReac Mild DIARRHEA Verified 09/21/21 11:24 Active Medications: Current Medications Acetaminophen (Acetaminophen 325 Mg Tablet) 650 mg PO Q6H PRN PRN Reason: Pain, Mild (Pain Scale 1-3) Last Admin: 09/23/21 12:26 Dose: 650 mg Documented by: Albuterol Sulfate (Albuterol Sulfate (0.083%) 2.5 Mg/3 Ml Vial.Neb) 2.5 mg INHALE Q4H PRN PRN Reason: Shortness Of Breath Or Wheezing Albuterol Sulfate (Albuterol Sulfate 90 Mcg 8 Gm Inhaler) 2 puff INHALE Q4H PRN PRN Reason: Wheezing Atorvastatin Calcium (Atorvastatin Calcium 40 Mg Tablet) 40 mg PO BEDTIME [facility] Last Admin: 09/22/21 21:42 Dose: 40 mg Documented by: Bumetanide (Bumetanide 1 Mg Tablet) 2 mg PO BIDWM [facility]; Protocol Last Admin: 09/22/21 07:44 Dose: 2 mg Documented by: Clopidogrel Bisulfate (Clopidogrel Bisulfate 75 Mg Tablet) 75 mg PO BEDTIME [facility] Last Admin: 09/22/21 21:42 Dose: 75 mg Documented by: Fluoxetine HCl (Fluoxetine Hcl Oral Solution 20 Mg/5 Ml Solution) 20 mg PO DAILY [facility] Last Admin: 09/23/21 07:31 Dose: 20 mg Documented by: Heparin Sodium (Porcine) (Heparin Sodium,Porcine 5,000 Unit/Ml Vial) 5,000 unit SUBCUT Q12H [facility] Last Admin: 09/23/21 06:16 Dose: 5,000 unit Documented by: Ceftriaxone Sodium 1 gm/ (Sodium Chloride) 50 mls @ 100 mls/hr IV Q24H [facility] Last Infusion: 09/22/21 19:03 Dose: Infused Documented by: Vancomycin HCl 500 mg/ Sodium (Chloride) 110 mls @ 110 mls/hr IV [id number] [facility] Isosorbide Mononitrate (Isosorbide Mononitrate 30 Mg Tab.Er.24h) 30 mg PO DAILY [facility]; Protocol Last Admin: 09/22/21 07:44 Dose: 30 mg Documented by: Loperamide HCl (Loperamide Hcl Oral Liquid 2 Mg/15 Ml Liquid) 1 mg PO Q2D [facility] Last Admin: 09/23/21 07:41 Dose: 1 mg Documented by: Loratadine (Loratadine 10 Mg Tablet) 10 mg PO DAILY PRN PRN Reason: Allergy Symptoms Lorazepam (Lorazepam 0.5 Mg Tablet) 0.5 mg PO DAILY PRN PRN Reason: Anxiety Metoprolol Tartrate (Metoprolol Tartrate 25 Mg Tablet) 25 mg PO BID [facility]; Protocol Last Admin: 09/23/21 10:55 Dose: Not Given Documented by: Midodrine (Midodrine Hcl 10 Mg Tablet) 10 mg PO TIDWM [facility] Last Admin: 09/23/21 12:27 Dose: 10 mg Documented by: Ondansetron HCl (Ondansetron Hcl 4 Mg/2 Ml Vial) 4 mg IVPUSH Q8H PRN PRN Reason: Nausea and Vomiting Pharmacy Consult (Consult Rx Perform Med Rec) 1 each MISCELLANE ONCE PRN PRN Reason: Consult order Pharmacy Consult (Consult Rx Vancomycin Dosing) 1 each MISCELLANE DAILY PRN PRN Reason: Consult order Quetiapine Fumarate (Quetiapine Fumarate 50 Mg Tablet) 50 mg PO BEDTIME [facility] Last Admin: 09/22/21 21:51 Dose: Not Given Documented by: Sodium Chloride (0.9 % Sodium Chloride Flush 3 Ml Syringe) 3 ml IVFLUSH QSHIFT [facility] Last Admin: 09/23/21 07:32 Dose: 3 ml Documented by: Vitamin D (Cholecalciferol (Vitamin D3) 25 Mcg Tablet) 50 mcg PO DAILY [facility] Last Admin: 09/23/21 07:31 Dose: 50 mcg Documented by: Home Medications Medication Instructions Recorded Confirmed Last Taken Type atorvastatin 40 mg tablet 40 mg PO BEDTIME 04/24/20 09/21/21 09/20/21 History cholecalciferol (vitamin D3) 50 50 mcg PO DAILY 04/24/20 09/21/21 09/21/21 History mcg (2,000 unit) tablet metoprolol tartrate 25 mg tablet 25 mg PO BID 04/24/20 09/21/21 09/21/21 History clopidogrel 75 mg tablet 1 tab PO BEDTIME 07/16/20 09/21/21 09/20/21 History fluoxetine 20 mg/5 mL (4 mg/mL) 5 ml PO DAILY 07/16/20 09/21/21 09/21/21 History oral solution lorazepam 0.5 mg tablet 0.5 mg PO DAILY PRN 07/16/20 09/21/21 Unknown History umeclidinium 62.5 mcg-vilanterol 1 puff INHALATION DAILY 07/16/20 09/21/21 09/21/21 History 25 mcg/actuation powdr for inhalation (Anoro Ellipta) nystatin 100,000 unit/gram topical 1 appl TOPICAL BID PRN 01/05/21 09/21/21 Unknown History powder albuterol sulfate 2.5 mg INHALATION Q4H PRN 06/12/21 09/21/21 Unknown History loratadine 10 mg tablet 10 mg PO DAILY PRN 06/12/21 09/21/21 06/19/21 History midodrine 10 mg tablet See Rx Instructions .ROUTE .COMPLEX 06/12/21 09/21/21 06/17/21 History loperamide 1 mg/7.5 mL oral liquid 1 mg PO Q2D 07/13/21 09/21/21 07/12/21 History quetiapine 25 mg tablet 50 mg PO BEDTIME 07/13/21 09/21/21 09/20/21 History albuterol sulfate 90 mcg/actuation 2 puff INHALATION Q4H PRN 09/21/21 09/21/21 Unknown History aerosol inhaler (ProAir HFA) bumetanide 2 mg tablet 1 tab PO BID 09/21/21 09/21/21 09/21/21 History Physical Exam Vital Signs: Vital Signs: Last Vital Signs Temp 97.7 F 09/23/21 12:00 Pulse 101 H 09/23/21 12:00 Resp 24 H 09/23/21 12:00 BP 102/39 L 09/23/21 12:00 Pulse Ox 96 09/23/21 12:00 Oxygen Flow Rate 3 09/21/21 11:24 BMI result Body Mass Index 28.5 Const: General: cooperative, alert, in distress moderate and respiratory and ill appearing Nutritional Appearance: overweight Orientation/consciousness: patient oriented x3 HEENT: Head: Yes normocephalic and Yes atraumatic Neck: Neck: Yes trachea midline, Yes supple and Yes no JVD Resp: Effort & Inspection: decreased respiratory effort Auscultation: no rales, no wheezes and diminished lung sounds Cardio: Jugular venous distension: no JVD Rate: regular rate and tachycardic Rhythm: regular rhythm Heart sounds: S1 normal heart sound present, S2 normal heart sound present, no click, no gallops and Murmur heart sound present systolic GI: Auscultation: normal bowel sounds Skin: General skin exam: no rashes or lesions noted Neuro: General: patient oriented x3 and no focal motor deficits Extrem: General: No clubbing, No cyanosis, No edema and Yes other ( Contractures) Objective Labs and Meds Result diagrams: 09/23/21 08:39 09/23/21 05:30 Lab results: Laboratory Results - last 24 hr 09/22/21 09/22/21 09/22/21 05:26 05:26 15:56 WBC 13.0 H RBC 3.68 L Hgb 11.9 L Hct 36.4 L MCV 98.9 H MCH 32.3 MCHC 32.7 RDW 14.8 Plt Count 63 L D MPV 13.0 H Absolute Nucleated RBC 0.000 Nucleated RBC % (auto) 0.0 Sodium 132 L Potassium 5.3 H Chloride 96 Carbon Dioxide 21 L Anion Gap 20 BUN 75 H Creatinine 8.10 H* Estim Creat Clear Calc 6.2 Estimated GFR 5 POC Glucose 91 Random Glucose 157 H Calcium 7.7 L Magnesium 1.8 Troponin I High Sens Blood Type Antibody Screen Crossmatch 09/22/21 09/22/21 09/23/21 16:37 22:50 05:30 WBC 7.8 RBC 2.48 L D Hgb 8.0 L D Hct 24.1 L D MCV 97.2 MCH 32.3 MCHC 33.2 RDW 14.8 Plt Count 55 L MPV 13.6 H Absolute Nucleated RBC 0.000 Nucleated RBC % (auto) 0.0 Sodium Potassium Chloride Carbon Dioxide Anion Gap BUN Creatinine Estim Creat Clear Calc Estimated GFR POC Glucose Random Glucose Calcium Magnesium Troponin I High Sens 45.5 H D 268.0 H* D Blood Type Antibody Screen Crossmatch 09/23/21 09/23/21 09/23/21 05:30 05:30 07:06 WBC RBC Hgb Hct MCV MCH MCHC RDW Plt Count MPV Absolute Nucleated RBC Nucleated RBC % (auto) Sodium 133 L Potassium 3.7 D Chloride 104 Carbon Dioxide 19 L Anion Gap 14 BUN 22 H D Creatinine 3.28 H Estim Creat Clear Calc 15.4 Estimated GFR 14 POC Glucose 90 Random Glucose 102 Calcium 7.5 L Magnesium Troponin I High Sens 417.6 H* D Blood Type Antibody Screen Crossmatch 09/23/21 09/23/21 09/23/21 08:39 08:39 11:35 WBC RBC Hgb Hct 27.1 L MCV MCH MCHC RDW Plt Count MPV Absolute Nucleated RBC Nucleated RBC % (auto) Sodium Potassium Chloride Carbon Dioxide Anion Gap BUN Creatinine Estim Creat Clear Calc Estimated GFR POC Glucose 140 H Random Glucose Calcium Magnesium Troponin I High Sens Blood Type O Positive Antibody Screen NEGATIVE Crossmatch See Detail Assessment and Plan (1) NSTEMI (non-ST elevated myocardial infarction): Status: Acute NSTEMI in this elderly woman who is admitted with sepsis and after developing hypertension during dialysis is secondary to demand ischemia. However there is high likelihood of underlying significant obstructive coronary artery disease given the EKG findings as well as rising troponins and with normal LV ejection fraction echocardiogram. She has multiple risk factors including diabetes longstanding an end-stage renal disease that could contribute to coronary artery disease. However treatment options are very limited. She is currently on metoprolol and isosorbide. Her heart rate is still elevated. Continue to up titrate metoprolol as tolerated if blood pressure allows. Discussed with the daughter about difficulty managing her clinical situation. Her overall prognosis is poor. This was discussed with her. Ability to perform dialysis in setting of sepsis and hypotension is going be difficult, she is already on midodrine therapy at maximal dose. Would try to avoid too much fluid removal, although this is going be difficult as she has increased work of breathing most likely due to elevated filling pressures and prior heart failure. Continue treatment for sepsis. Continue supportive care. Discussed with daughter about possibility of palliative care. Patient is DNR DNI. She would discussed with her siblings. Will sign of the case. For follow-up need be. Procedures Date of Service Date of Service: 09/23/21
--- NOTE | 2021-09-23 14:14 | PM.PNNEP ---
Subjective Subjective Date of Service: 09/23/21 Interval history: ESRD on HD via permcath. F/u on sepsis, bactereamia, Hypotension.. Chart Reviewed. Events noted. Physical Exam Vital Signs: Vital Signs: Last Vital Signs Temp 97.7 F 09/23/21 12:00 Pulse 101 H 09/23/21 12:00 Resp 24 H 09/23/21 12:00 BP 102/39 L 09/23/21 12:00 Pulse Ox 96 09/23/21 12:00 Oxygen Flow Rate 3 09/21/21 11:24 BMI result Body Mass Index 28.5 Const: General: cooperative, alert and awake Orientation/consciousness: patient oriented x3 HEENT: Head: Yes normocephalic and Yes atraumatic Neck: Neck: Yes no JVD Resp: Auscultation: crackles Cardio: Jugular venous distension: no JVD Rate: regular rate Rhythm: regular rhythm Heart sounds: S1 normal heart sound present and S2 normal heart sound present GI: Auscultation: normal bowel sounds Neuro: General: patient oriented x3 and moves all extremities Extrem: General: Yes edema Objective Data Labs CBC & Chem 7: 09/23/21 08:39 09/23/21 05:30 Labs: Laboratory Results - last 24 hr 09/22/21 09/22/21 09/22/21 05:26 05:26 15:56 WBC 13.0 H RBC 3.68 L Hgb 11.9 L Hct 36.4 L MCV 98.9 H MCH 32.3 MCHC 32.7 RDW 14.8 Plt Count 63 L D MPV 13.0 H Absolute Nucleated RBC 0.000 Nucleated RBC % (auto) 0.0 Sodium 132 L Potassium 5.3 H Chloride 96 Carbon Dioxide 21 L Anion Gap 20 BUN 75 H Creatinine 8.10 H* Estim Creat Clear Calc 6.2 Estimated GFR 5 POC Glucose 91 Random Glucose 157 H Calcium 7.7 L Magnesium 1.8 Troponin I High Sens Blood Type Antibody Screen Crossmatch 09/22/21 09/22/21 09/23/21 16:37 22:50 05:30 WBC 7.8 RBC 2.48 L D Hgb 8.0 L D Hct 24.1 L D MCV 97.2 MCH 32.3 MCHC 33.2 RDW 14.8 Plt Count 55 L MPV 13.6 H Absolute Nucleated RBC 0.000 Nucleated RBC % (auto) 0.0 Sodium Potassium Chloride Carbon Dioxide Anion Gap BUN Creatinine Estim Creat Clear Calc Estimated GFR POC Glucose Random Glucose Calcium Magnesium Troponin I High Sens 45.5 H D 268.0 H* D Blood Type Antibody Screen Crossmatch 09/23/21 09/23/21 09/23/21 05:30 05:30 07:06 WBC RBC Hgb Hct MCV MCH MCHC RDW Plt Count MPV Absolute Nucleated RBC Nucleated RBC % (auto) Sodium 133 L Potassium 3.7 D Chloride 104 Carbon Dioxide 19 L Anion Gap 14 BUN 22 H D Creatinine 3.28 H Estim Creat Clear Calc 15.4 Estimated GFR 14 POC Glucose 90 Random Glucose 102 Calcium 7.5 L Magnesium Troponin I High Sens 417.6 H* D Blood Type Antibody Screen Crossmatch 09/23/21 09/23/21 09/23/21 08:39 08:39 11:35 WBC RBC Hgb Hct 27.1 L MCV MCH MCHC RDW Plt Count MPV Absolute Nucleated RBC Nucleated RBC % (auto) Sodium Potassium Chloride Carbon Dioxide Anion Gap BUN Creatinine Estim Creat Clear Calc Estimated GFR POC Glucose 140 H Random Glucose Calcium Magnesium Troponin I High Sens Blood Type O Positive Antibody Screen NEGATIVE Crossmatch See Detail Microbiology Microbiology Results: Microbiology 09/22/21 16:40 Blood - Venous Blood Culture - Preliminary Prelim: GPC Gram Stain only 09/22/21 16:37 Blood - Venous Blood Culture - Preliminary Prelim: GPC Gram Stain only 09/22/21 16:00 Blood - Central Line Blood Culture - Final 09/21/21 14:43 Urine Catheterized - Straight Catheter Urine Culture - Final 09/21/21 15:33 Blood - Venous Blood Culture - Final 09/21/21 15:40 Blood - Venous Blood Culture - Final Staphylococcus aureus 09/21/21 12:11 Blood - Venous Blood Culture - Final Staphylococcus aureus 09/21/21 12:11 Blood - Venous Blood Culture - Final Procedures Date of Service Date of Service: 09/23/21 Assessment & Plan Assessment and plan (1) Hyperkalemia: Status: Acute (2) Gram-positive bacteremia: Status: Acute (3) ESRD (end stage renal disease): Status: Acute Plan PLAN: 1. ESRD: usu TTS but provided treatment yesterday (09/22). We had planned to resume outpatient schedule today (09/23) however patient became hemodynamically stable this am and primary team held dialysis. Plan to re-evaluate the patient again in the morning and will attempt HD if stable. She will ultimately require line holiday and removal of permcath given positive blood cultures. Suggest following blood cultures given history of MSSA bacteremia. Thus far showing staph aureus from on 09/21. Suggest one additional HD session tomorow and then have permcath removed for source control. 2. SOB: UF as tolerated. 3. Anemia - H/H stable. VANESSA protocol 4. H/O MSSA line infection-BC's showing staph aureus. Consider ID input 5. Back/abd pain: ques etiol Low K diet Time Spent With Patient Time: Total time spent is greater than 50% in coordination of care (as documented) at patient's floor/unit and/or counseling patient: Progress Note: Quality Stroke Does the patient have a stroke diagnosis?: No
[2021-09-23 15:32] LABS: Vancomycin Random 17.6 mcg/mL (15-20)
[2021-09-23] MEDS: cefTRIAXone sodium 1 GM in 0.9 % Sodium Chloride 50 ML IV (17:37)
--- NOTE | 2021-09-23 18:05 | HE.PHANOTE ---
Patient trough was 17.6, no dialysis today. Per Md pt will have dialysis tomorrow, post dialysis level scheduled for 09/24 @1400
[2021-09-23] MEDS: dilTIAZem HCL 50 MG/10 ML VIAL IVPUSH (19:41)
--- NOTE | 2021-09-23 20:40 | ECG_ITS ---
Test Reason : chest pain Blood Pressure : / mmHG Vent. Rate : 095 BPM Atrial Rate : 095 BPM P-R Int : 132 ms QRS Dur : 084 ms QT Int : 364 ms P-R-T Axes : 062 045 002 degrees QTc Int : 457 ms Normal sinus rhythm Nonspecific ST abnormality Abnormal ECG When compared with ECG of 23-SEP-2021 12:11, No significant change was found Referred By: Gaston Baltazar Electronically Signed By:ARTURO ALDANA MD
[2021-09-23] MEDS: QUEtiapine Fumarate 50 MG TABLET PO (20:45)
[2021-09-23] MEDS: Metoprolol Tartrate 25 MG TABLET PO (20:45)
[2021-09-23] MEDS: Atorvastatin Calcium 40 MG TABLET PO (20:45)
[2021-09-23] MEDS: Clopidogrel Bisulfate 75 MG TABLET PO (20:46)
[2021-09-23] MEDS: Famotidine/PF 20 MG/2 ML VIAL 10 MG IVPUSH (23:14)
[2021-09-24] VITALS (9 sets, daily range): BP systolic 66–163; BP diastolic 40–71; PULSE 67–150; RESP 10–22; TEMP 36.4–36.6; O2SAT 90–98
--- NOTE | 2021-09-24 04:01 | PC.NURSE ---
Pt c/o midsternal chest pain 8/10 few minutes after using the bed montemayor, then followed with nausea and vomited with brownish liquid, vitals WNL, Dr. Ramos was notified and he came to the bedside, STAT EKG done and seen by same MD, pt claimed CP slowly regressing and resolved completely by itself, Pepcid IV ordered and started.
[2021-09-24] MEDS: Heparin Sodium,Porcine 5,000 UNIT/ML VIAL 5000 UNIT SUBCUT ×2 (05:58→18:34)
[2021-09-24 09:19] LABS: Creatinine Clr Calc Pharmacy 11.4; Estimated Glomerular Filt Rate 10
--- NOTE | 2021-09-24 10:16 | P.PNIM_ITS ---
Subjective Subjective Date of Service: 09/24/21 Interval History: F/u on sepsis, bactereamia, Hypotension and hypoxia, sepsis Interval history: She is doing bett today, more alert, less sob, less confused, BP is good and heart rate is better controlled. 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 Neuro: motor grossly intact Psych: appropriate affect Objective Data Active Medications Acetaminophen (Acetaminophen 325 Mg Tablet) 650 mg PO Q6H PRN PRN Reason: Pain, Mild (Pain Scale 1-3) Last Admin: 09/23/21 17:56 Dose: 650 mg Documented by: ILLIANA Albuterol Sulfate (Albuterol Sulfate (0.083%) 2.5 Mg/3 Ml Vial.Neb) 2.5 mg INHALE Q4H PRN PRN Reason: Shortness Of Breath Or Wheezing Albuterol Sulfate (Albuterol Sulfate 90 Mcg 8 Gm Inhaler) 2 puff INHALE Q4H PRN PRN Reason: Wheezing Atorvastatin Calcium (Atorvastatin Calcium 40 Mg Tablet) 40 mg PO BEDTIME [facility] Last Admin: 09/23/21 20:45 Dose: 40 mg Documented by: CASTILVeronika Bumetanide (Bumetanide 1 Mg Tablet) 2 mg PO BIDWM [facility]; Protocol Last Admin: 09/22/21 07:44 Dose: 2 mg Documented by: MILDRED Clopidogrel Bisulfate (Clopidogrel Bisulfate 75 Mg Tablet) 75 mg PO BEDTIME [facility] Last Admin: 09/23/21 20:46 Dose: 75 mg Documented by: KELLEN Diltiazem HCl (Diltiazem Hcl 50 Mg/10 Ml Vial) 5 mg IVPUSH Q6H PRN PRN Reason: Tachycardia Last Admin: 09/23/21 19:41 Dose: 5 mg Documented by: FRANKY Famotidine (Famotidine/Pf 20 Mg/2 Ml Vial) 10 mg IVPUSH BEDTIME [facility] Last Admin: 09/23/21 23:14 Dose: 10 mg Documented by: KELLEN Fluoxetine HCl (Fluoxetine Hcl Oral Solution 20 Mg/5 Ml Solution) 20 mg PO DAILY [facility] Last Admin: 09/23/21 07:31 Dose: 20 mg Documented by: BELEN Heparin Sodium (Porcine) (Heparin Sodium,Porcine 5,000 Unit/Ml Vial) 5,000 unit SUBCUT Q12H [facility] Last Admin: 09/24/21 05:58 Dose: 5,000 unit Documented by: KELLEN Ceftriaxone Sodium 1 gm/ (Sodium Chloride) 50 mls @ 100 mls/hr IV Q24H [facility] Last Infusion: 09/23/21 18:38 Dose: 0 mls/hr Documented by: LILIANA Vancomycin HCl 500 mg/ Sodium (Chloride) 110 mls @ 110 mls/hr IV [id number] [facility] Isosorbide Mononitrate (Isosorbide Mononitrate 30 Mg Tab.Er.24h) 30 mg PO DAILY [facility]; Protocol Last Admin: 09/22/21 07:44 Dose: 30 mg Documented by: MILDRED Loperamide HCl (Loperamide Hcl Oral Liquid 2 Mg/15 Ml Liquid) 1 mg PO Q2D [facility] Last Admin: 09/23/21 07:41 Dose: 1 mg Documented by: BELEN Loratadine (Loratadine 10 Mg Tablet) 10 mg PO DAILY PRN PRN Reason: Allergy Symptoms Lorazepam (Lorazepam 0.5 Mg Tablet) 0.5 mg PO DAILY PRN PRN Reason: Anxiety Metoprolol Tartrate (Metoprolol Tartrate 25 Mg Tablet) 25 mg PO BID [facility]; Protocol Last Admin: 09/23/21 20:45 Dose: 25 mg Documented by: KELLEN Comments: bp 199/59 H=100 Midodrine (Midodrine Hcl 10 Mg Tablet) 10 mg PO TIDWM [facility] Last Admin: 09/23/21 17:37 Dose: 10 mg Documented by: LILIANA Morphine Sulfate (Morphine Sulfate 2 Mg/Ml Cartridge) 1 mg IVPUSH Q3H PRN; Protocol PRN Reason: respiratory distress Ondansetron HCl (Ondansetron Hcl 4 Mg/2 Ml Vial) 4 mg IVPUSH Q8H PRN PRN Reason: Nausea and Vomiting Pharmacy Consult (Consult Rx Perform Med Rec) 1 each MISCELLANE ONCE PRN PRN Reason: Consult order Pharmacy Consult (Consult Rx Vancomycin Dosing) 1 each MISCELLANE DAILY PRN PRN Reason: Consult order Pharmacy Consult (Consult Rx Vancomycin Dosing) 1 each MISCELLANE DAILY PRN PRN Reason: Consult order Quetiapine Fumarate (Quetiapine Fumarate 50 Mg Tablet) 50 mg PO BEDTIME [facility] Last Admin: 09/23/21 20:45 Dose: 50 mg Documented by: KELLEN Sodium Chloride (0.9 % Sodium Chloride Flush 3 Ml Syringe) 3 ml IVFLUSH QSHIFT [facility] Last Admin: 09/23/21 20:46 Dose: 3 ml Documented by: KELLEN Vitamin D (Cholecalciferol (Vitamin D3) 25 Mcg Tablet) 50 mcg PO DAILY [facility] Last Admin: 09/23/21 07:31 Dose: 50 mcg Documented by: BELEN Labs CBC & Chem 7: 09/23/21 08:39 09/24/21 08:30 Labs: Laboratory Results - last 24 hr 09/23/21 09/23/21 09/24/21 11:35 14:15 08:30 Estim Creat Clear Calc 11.4 Estimated GFR 10 POC Glucose 140 H Random Vancomycin 17.6 Microbiology Microbiology Results: Microbiology 09/22/21 16:40 Blood Culture - Preliminary Blood - Venous Prelim: GPC Gram Stain only 09/22/21 16:37 Blood Culture - Preliminary Blood - Venous Prelim: GPC Gram Stain only 09/22/21 16:00 Blood Culture - Final Blood - Central Line 09/21/21 14:43 Urine Culture - Final Urine Catheterized - Straight Catheter 09/21/21 15:33 Blood Culture - Final Blood - Venous 09/21/21 15:40 Blood Culture - Final Blood - Venous Staphylococcus aureus 09/21/21 12:11 Blood Culture - Final Blood - Venous Staphylococcus aureus Assessment and Plan (1) Hyperkalemia: Status: Acute (2) Hyponatremia: Status: Acute (3) Sepsis: Status: Acute (4) Acute UTI: Status: Acute Plan A 71 years old lady with PMH of HTN, HLD, ESRD on HD, diastolic CHF, diabetes, COPD, bipolar, bed-bound, chronic hypoxic failure on O2 at home, among others who presents to the hospital for reported fever and weakness. Sepsis due to gram positive bacteremia likely line Sepsis and possible UTI -Blood culture from 09/21-- Staph aureus - continue Vanco post dilaysis and follow culture sensitivity. - echocardiogram from 09/23 showed no vegetations. - Id following - permacath to be removed after dialysis Acute on chronic respiratory failure--likely multifactoria from COPD, anemia, sepsis -continue O2, her respiratory status is much better today, and O2 requirement has gone down PAF--at present rate controlled, hold anticoagulation in light of singnificant anemia. IV ardizem for control, Hyperkalemia--resolved hyponatremia--chronic at 133, monitor Hypertension Continue metoprolol, hold imdure ? Anemia of chronic dz--H/H has been stable CAD Continue Lopressor (hold if BP is low), plavix Continue statin Mood Resume fluoxetine, seroquel Need for inaptient: Sepsis, Hypotension that need fluid management close monitoring and monitoring of response, has acute on chronic resp failure high O2 requirement that she cannot manage at home right now. Prognosis is poor and in constant discussion with family and they would be prepare to make her hospice if not improve. ICU is aware of the patient on 09/23, I discussed care wth family daughters, sons and they concluded that in the end even that she continues to worsen they would want her going home with hospice in the next 24 to 48 hours. Blood cultures continues to be positive, Nephro is considering taken out port tomorrow after dialysis. Will give additional vanco today. morphine for respiratory distress Quality Stroke Does the patient have a stroke diagnosis?: No VTE Prior VTE?: No VTE Risk Level:: Medical - moderate - high VTE Device Contraindication: Treatment Not Indicated VTE Drug Contraindication: N/A - Med Ordered
[2021-09-24] MEDS: Midodrine HCl 10 MG TABLET PO ×3 (10:41→17:41)
[2021-09-24] MEDS: FLUoxetine HCl Oral Solution 20 MG/5 ML SOLUTION PO (10:41)
[2021-09-24] MEDS: Cholecalciferol (Vitamin D3) 25 MCG TABLET 50 MCG PO (10:41)
[2021-09-24] MEDS: 0.9 % Sodium Chloride Flush 3 ML SYRINGE IVFLUSH ×3 (10:42→20:00)
[2021-09-24] MEDS: dilTIAZem HCL 50 MG/10 ML VIAL IVPUSH ×2 (11:44→19:09)
[2021-09-24] MEDS: ondansetron HCL 4 MG/2 ML VIAL IVPUSH (13:40)
--- NOTE | 2021-09-24 16:18 | MHC.CM.PN ---
Female 71 DX fever weakness. DP home with resumption of services. She will resume HD at [facility]. Patient will transport via BLS.
--- NOTE | 2021-09-24 16:45 | PM.PNNEP ---
Subjective Subjective Date of Service: 09/24/21 Interval history: CHart Reviewed. Events noted. Gram pos bacteremia in ESRD patient with permcath. Physical Exam Vital Signs: Vital Signs: Last Vital Signs Temp 97.5 F 09/24/21 16:00 Pulse 67 09/24/21 16:00 Resp 20 09/24/21 16:00 BP 163/71 H 09/24/21 16:00 Pulse Ox 98 09/24/21 16:00 Oxygen Flow Rate 3 09/21/21 11:24 BMI result Body Mass Index 28.5 Const: General: cooperative and no acute distress HEENT: Head: Yes normal to inspection and Yes normocephalic Neck: Neck: Yes normal visual inspection Resp: Auscultation: clear to auscultation bilaterally Cardio: Jugular venous distension: no JVD Rate: regular rate Rhythm: regular rhythm Heart sounds: S1 normal heart sound present and S2 normal heart sound present GI: Auscultation: normal bowel sounds Neuro: General: no focal motor deficits Extrem: General: Yes no clubbing, cyanosis or edema Objective Data Labs CBC & Chem 7: 09/23/21 08:39 09/24/21 08:30 Labs: Laboratory Results - last 24 hr 09/24/21 08:30 Creatinine 4.44 H* Estim Creat Clear Calc 11.4 Estimated GFR 10 Microbiology Microbiology Results: Microbiology 09/22/21 16:00 Blood - Central Line Blood Culture - Preliminary No growth after 24 hours. 09/22/21 16:40 Blood - Venous Blood Culture - Final Staphylococcus aureus 09/22/21 16:37 Blood - Venous Blood Culture - Final Staphylococcus aureus 09/22/21 16:00 Blood - Central Line Blood Culture - Final 09/21/21 14:43 Urine Catheterized - Straight Catheter Urine Culture - Final 09/21/21 15:33 Blood - Venous Blood Culture - Final 09/21/21 15:40 Blood - Venous Blood Culture - Final Staphylococcus aureus 09/21/21 12:11 Blood - Venous Blood Culture - Final Staphylococcus aureus 09/21/21 12:11 Blood - Venous Blood Culture - Final Procedures Date of Service Date of Service: 09/24/21 Assessment & Plan Assessment and plan (1) Gram-positive bacteremia: Status: Acute (2) ESRD (end stage renal disease): Status: Acute Plan PLAN: 1. ESRD: usu TTS but provided treatment 09/22 and 09/24. Plan to re-evaluate the patient again in the morning and determine need for HD> Will require removal of permcath given positive blood cultures. Please coordinate with IR. Suggest following blood cultures given history of MSSA bacteremia. 2. SOB: UF as tolerated. 3. Anemia - H/H stable. VANESSA protocol 4. H/O MSSA line infection-BC's showing staph aureus. Consider ID input 5. Back/abd pain: ques etiol Low K diet Time Spent With Patient Time: Total time spent is greater than 50% in coordination of care (as documented) at patient's floor/unit and/or counseling patient: Progress Note: Quality Stroke Does the patient have a stroke diagnosis?: No
[2021-09-24 16:55] LABS: Vancomycin Random 13.2 mcg/mL (15-20)
--- NOTE | 2021-09-24 17:15 | HE.PHANOTE ---
Patients post dialysis level was 13.2, give 500 mg now, dialysis schedule will be mon, monday, next level will be monday @1600
[2021-09-24] MEDS: vancomycin HCL 500 MG in 0.9 % Sodium Chloride 100 ML 110 MG IV (17:25)
[2021-09-24] MEDS: Morphine Sulfate 2 MG/ML CARTRIDGE 1 MG IVPUSH (17:51)
[2021-09-24] MEDS: cefTRIAXone sodium 1 GM in 0.9 % Sodium Chloride 50 ML IV (19:13)
[2021-09-24] MEDS: 0.9 % Sodium Chloride 500 ML IV ×2 (19:59→22:25)
[2021-09-24] MEDS: Famotidine/PF 20 MG/2 ML VIAL 10 MG IVPUSH (20:00)
[2021-09-24] MEDS: Atorvastatin Calcium 40 MG TABLET PO (20:00)
[2021-09-24] MEDS: Clopidogrel Bisulfate 75 MG TABLET PO (20:00)
--- NOTE | 2021-09-24 20:22 | PC.NURSE ---
Pt had dialyis for four hours today, had some moment of hypotension; midodrine was given, BP began improving and managed up to 160/73. after dialysis pt had some eipsodes of ST; cardizem was given ; HR decreased to the high 90's. At [facility] eof shift PT became Tachy on the 160's; another dose of cardizem was given. pt also had no urine output for the past 12hrs
--- NOTE | 2021-09-24 21:49 | PM.EVENT ---
Event Note Date of Service: 09/24/21 Event Note: Hypotension: Around 20:00 on 09/24/2021 RN mentioned that patient becoming hypertensive and tachycardic. Went in to examine the patient. Patient appears drowsy and lethargic; daily following commands; has warm peripheries but blood pressure was low-80s/40s Patient is given 500 cc of IV fluid bolus. On monitor patient also noted to be sinus tach in 160s. Patient already received mild adrenal around 17:00 Patient has coarse breath sounds; on 6 L of oxygen Prognosis guarded. Spoke to the patient's healthcare proxy at length who is inclined towards comfort measures.
--- NOTE | 2021-09-25 01:38 | PC.NURSE ---
At 1950 HR maintaining 150s with a BP of 66/50. MD notified and up to bedside. Pt placed in trendelenburg position and 500cc bolus given. Chest xray taken showing increased edema. Repeat blood pressure of 82/44. MD up to bedside and discussed care with family and agreed on additional 500cc bolus. HR continues to maintain in 140s with SBP 70-80s. MD updated and no further interventions at this time.
[2021-09-25 03:11] VITALS: BP 76/39; PULSE 152; RESP 22; TEMP 36; O2SAT 88
[2021-09-25] MEDS: Heparin Sodium,Porcine 5,000 UNIT/ML VIAL 5000 UNIT SUBCUT (06:15)
--- NOTE | 2021-09-25 08:27 | P.DN_ITS ---
Discharge Sum: Prov Provider Primary care physician: Jennifer Loya MD Consults: 09/21/21 17:13 Consult to Nephrology Routine Consulting Provider: Marc Rosario Reason for consultation: Missed dialysis today, for dialysis by tomorrow 09/22/21 12:23 Consult to Infectious Diseases Routine Consulting Provider: Ana Aguila Reason for consultation: Staph A Bacteremia 09/22/21 15:42 Consult to Cardiology Routine Consulting Provider: Torin Feliz Reason for consultation: ST depression post Hypotensive event 09/22/21 15:45 Consult to Critical Care Routine Consulting Provider: Rafita Gomez Reason for consultation: Hypotensin, unresponsiveness Discharge Sum: Diag Contributing Factors (1) Gram-positive bacteremia: (2) ESRD (end stage renal disease): Discharge Sum: Summary Date and Time Date of admission: 09/21/21 17:12 Date of : 09/25/21 Time of : 07:35 Summary Details: Chief Complaint: Fever, weakness A 71 years old lady with PMH of HTN, HLD, ESRD on HD, diastolic CHF, diabetes, COPD, bipolar, bed-bound, chronic hypoxic failure on O2 at home, among others who presents to the hospital for reported fever and weakness.? The patient is Frisian speakers and answers questions with and clarity.? She reports that she went to dialysis today but they asked her to go to the emergency as she had high temperature and reported to be hypoxic? She reports that for the last day or 2 she has been feeling little bit of with subjective fever feeling and burning urination.? She denies any shortness of breath, chest pain, cough, nausea or vomiting, change in bowel habit or any wounds. In the emergency she was noticed to be febrile with tachycardia and elevated lactic acid but was never found hypoxic? Concerns about possible urine infection.? Admitted for further evaluation and treatment. Hospital course: Patient with ESRD with a temp permacath was admitted with weakness and fever and found to be bacteremic and septic with Staph Aurues suspected to be from existing permacath. She was treated with IV vancomycin and during her course continue to have episodes of hypotension, tachyardia with AFIB with RVR, hyponatremia, acute on chronic respiratory failure with increasinng O2 need, confusion due to Toxic metabolic encephalopathy. Her overall prognosis was deemed poor and multiple discussion took place with family who end that end committed to hospice care at home if her condition did not improve. Over night of 09/24/21 to 09/25/21 she became profoundly hypOtensive with SBP in 60s and 70s despite IVF and midodrine and while family making decision about comfort measure only her blood drop even further becoming assystolic on on morning of 09/25/21 and at 7.35 am. Family was at bedside. Cause of : Septic shock, Bacteremia Final Diagnoses: Septic shoeck Staph Bacteremia Toxic metabolic encephalopathy Acute on chronic respriatory failure HypOntremia Crhonic heart failure with preseerved EF ESRD on hemodialysis Anemia of chronic disease Additional Data Confirmation of as documented by pronouncing clinician: no pulse, no respirations, no heart sounds, pupils fixed and dilated and other (Asystole on ECG) Attending physician: Gaston Corrales MD Advance directives: Yes
--- NOTE | 2021-09-25 08:44 | PM.EVENT ---
Event Note Date of Service: 09/25/21 Event Note: Patient had precipitous drop in BP followed by rapid degeneration of rythm to asytole, examined at bedside, without pulse, no response to noxious stimuli, pronounced at 7:35 AM. Family was at bedside
--- NOTE | 2021-09-25 11:58 | PC.NURSE ---
Addendum entered by Li Leo RN 09/25/21 12:04: Time of pronounced at 0735. Family at bedside. ALEX called at 0820 and declined. Post mortem care performed. Original Note: 0730 morning of 09/25/21 this RN was notified by residential monitor tech that patient had a cardiac pause and heart rhythm converted to bigeminey in the 30s, Dr. Corrales made aware. This RN at bedside to examine patient. Heart rhythm rapidly changed to asystole, DR. Corrales at bedside to examine patient.
== END 2021-09-25 12:39 | disposition expired ==
LOC: HO.ED 16:01 → HO.EDOVER 17:29 → HO.S3 21:01 → HO.IMC 09-23 14:34
PROVIDERS: Anesthesiology; Emergency Medicine; Hospitalist; Admitting Provider Student in an Organized Health Care Education/Training Program; Emergency Provider Emergency Medicine; PCP Family Medicine; Visit Provider Internal Medicine
DX: T80.211A Bloodstream infection due to central venous catheter, initial encounter (principal); A41.01 Sepsis due to Methicillin susceptible Staphylococcus aureus; I21.4 Non-ST elevation (NSTEMI) myocardial infarction; N18.6 End stage renal disease; J96.21 Acute and chronic respiratory failure with hypoxia; R65.21 Severe sepsis with septic shock; G92.9 Unspecified toxic encephalopathy; N39.0 Urinary tract infection, site not specified; I13.2 Hypertensive heart and chronic kidney disease with heart failure and with stage 5 chronic kidney disease, or end stage renal disease; I50.32 Chronic diastolic (congestive) heart failure; E87.1 Hypo-osmolality and hyponatremia; E44.0 Moderate protein-calorie malnutrition; Z66 Do not resuscitate; D63.1 Anemia in chronic kidney disease; E78.5 Hyperlipidemia, unspecified; F31.9 Bipolar disorder, unspecified; Z74.01 Bed confinement status; Z99.81 Dependence on supplemental oxygen; E11.22 Type 2 diabetes mellitus with diabetic chronic kidney disease; E87.6 Hypokalemia; Z99.2 Dependence on renal dialysis; I25.10 Atherosclerotic heart disease of native coronary artery without angina pectoris; I95.9 Hypotension, unspecified; E86.1 Hypovolemia; Z91.15 Patient's noncompliance with renal dialysis; D69.6 Thrombocytopenia, unspecified; J44.9 Chronic obstructive pulmonary disease, unspecified; Z68.28 Body mass index [BMI] 28.0-28.9, adult; I48.0 Paroxysmal atrial fibrillation; Z20.822 Contact with and (suspected) exposure to COVID-19; Z88.0 Allergy status to penicillin; Z88.6 Allergy status to analgesic agent; Z79.02 Long term (current) use of antithrombotics/antiplatelets; Z79.899 Other long term (current) drug therapy
CPT/HCPCS: 0241U; 36415; 71045; 80048; 80053; 80202; 82565; 82947; 83605; 83735; 84484; 85014; 85025; 85027; 86850; 86900; 86901; 86923; 87040; 87077; 87147; 87186; 87205; 90999; 93005; 93306; 96360; 99285; J0696; J2270; J2405; J3370; P9047; Q9957